=== PATIENT | male | born 1970 | race Hispanic/Latino ===

== ENCOUNTER 2018-02-09 09:25 | Day surgery (SDC) | payer BC ==
[2018-02-08 16:19] LABS: Absolute Lymphocytes (CBC) 1.6 K/uL (0.7-4.9); Absolute Monocytes 0.8 K/uL (0.1-1.3); Absolute Neutrophil 10.6 K/uL (1.8-8.0); Basophils % 0.5 % (0-1.3); Eosinophils % 0.8 % (0-4.4); Hematocrit 41.6 % (39.6-49.0); Lymphocytes % 12.4 % (15.3-44.8); MCH 28.6 pg (27.0-35.0); MCV 84.5 fL (80-100); MPV 9.2 fL (7.6-11.3); Monocytes % 6.1 % (3.3-12.3); RBC Red Blood Cell Count 4.92 M/uL (4.33-5.43)
[2018-02-08 16:24] LABS: Potassium 4.2 mEq/L (3.6-5.0)
--- NOTE | 2018-02-08 16:43 | RAD REPORT ---
EXAM DESCRIPTION: RAD - Chest Pa And Lat (2 Views) - 02/08/2018 3:58 pm CLINICAL HISTORY: Soft tissue mass. COMPARISON: None. FINDINGS: The lungs are clear. The heart is normal in size. No displaced fractures. Mildly tortuous thoracic aorta. IMPRESSION: No acute or concerning finding suspected.
--- NOTE | 2018-02-09 06:57 | EKG ---
Test Date: 2018-02-08 Test Time: 15:50:44 Developer Support Engineer: ZAFAR MEASUREMENT RESULTS: Intervals: Rate: 90 AK: 164 QRSD: 102 QT: 326 QTc: 398 [place]: P: 46 AK: 164 QRS: -13 T: 15 INTERPRETIVE STATEMENTS: Normal sinus rhythm Normal ECG No previous ECG available for comparison Electronically Signed On 02-09-18 06:55:19 CDT by Jeremy Sanon
[2018-02-09] MEDS ORDERED: Ringers Lactate 1,000 ML IV ONE (09:38)
[2018-02-09] MEDS ORDERED: CEFAZOLIN/SWI 1gm 1 GM/10 ML SYR ONE (09:39)
[2018-02-09] MEDS ORDERED: PROPOFOL 200 MG/20 ML VIAL IV ONE ×2 (10:17→10:37)
[2018-02-09] MEDS ORDERED: MIDAZOLAM HCL 2 MG/2 ML INJ ONE ×2 (10:18→10:37)
[2018-02-09] MEDS ORDERED: ONDANSETRON HCL 40 MG/20 ML VIAL ONE ×2 (10:18→11:38)
[2018-02-09] MEDS ORDERED: FENTANYL CITR 250 MCG/5 ML ONE (10:18)
[2018-02-09] MEDS ORDERED: FENTANYL CITR 100 MCG/2 ML ONE (10:37)
[2018-02-09] MEDS ORDERED: KETOROLAC 30 MG/ML INJ ONE (11:36)
[2018-02-09] MEDS ORDERED: HYDROCODONE/APAP 7.5/325 MG TAB ONE (12:56)
[2018-02-09] MEDS ORDERED: HYDROCODONE/APAP 7.5/325 MG TAB PO ONE (12:58)
[2018-02-09 13:27] VITALS: BP 121/70; TEMP 98.2; O2SAT 98
--- NOTE | 2018-02-10 00:07 | OP ---
Date of Procedure: 02/09/2018 Surgeon: Sascha Smith MD Preoperative Diagnosis: Infected sebaceous cyst in back. Postoperative Diagnosis: Infected sebaceous cyst in back. Procedure: Wide excision of infected sebaceous cyst in back, mass 10 cm x 6 cm. Estimated Blood Loss: Minimal. Specimen: Pus and cyst contents. Findings: Above. Anesthesia: General. Complications: None. Disposition: The patient tolerated the procedure in stable condition and was taken to the Recovery i n good general condition. Procedure In Detail: The patient was brought to the OR and placed in supine position. General anest hesia was begun. The patient was placed in left lateral position, prepped and draped in usual steril e fashion, Marcaine 0 5% was infiltrated locally. A 15-blade was used to make approximately 10 cm x 6 cm incision. Entire cyst contents excised and sent to Pathology after cultures were done on the pu s and cyst, wound irrigated, bleeding controlled with cautery. This was a very large and deep wound. I was unable to close the wound and pus, there was infection present. Therefore, the plan is to tr eat the patient with wet-to-dry normal saline dressing changes daily. He will follow up with me in [facility] and we will order wound VAC for the patient which will allow better secondary healing, so sterile dressing was applied. The patient was awakened and taken to Recovery in good ge neral condition. Discharge Note: The patient will go to Day Surgery and home when stable. Disposition: Home. Condition: Stable. Discharge Instructions: Resume home medications and diet. Activity as tolerated. No heavy lifting. Wet-to-dry normal saline dressing changes daily. Cipro 500 mg p.o. q.12. The patient already has pain medicine which is [place] 7.5-325 1 p.o. q.4 p.r.n. pain. Follow up in the [facility] n ext Monday. /MODL Voice ID: [id number] Report ID: [id number]
== END 2018-02-09 13:20 | disposition home or self-care (01) ==
LOC: OR 09:25 → EDBD 10:30 → OR 13:20
PROVIDERS: ATTEND Surgery
PROC: 0JB70ZZ Excision of Back Subcutaneous Tissue and Fascia, Open Approach (ICD-10-PCS; principal; 2018-02-09 10:30)
DX: L72.3 Sebaceous cyst (principal); I10 Essential (primary) hypertension; K21.9 Gastro-esophageal reflux disease without esophagitis; E66.9 Obesity, unspecified; G47.33 Obstructive sleep apnea (adult) (pediatric); Z83.3 Family history of diabetes mellitus; Z82.49 Family history of ischemic heart disease and other diseases of the circulatory system
CPT/HCPCS: 36415; 71046; 80048; 85025; 87070; 87075; 87077; 87186; 87205; 88304; 88305; 93005; J0690; J2250; J2405; J3010

== ENCOUNTER 2022-08-29 11:33 | Emergency (ER) | payer OTHER ==
[2022-08-29 12:44] LABS: Absolute Lymphocytes (CBC) 0.6 K/uL (0.7-4.9); Hematocrit 40.8 % (39.6-49.0); Lymphocytes % 4.8 % (15.3-44.8); MCV 83.5 fL (80-100); MPV 8.1 fL (7.6-11.3); RBC Red Blood Cell Count 4.89 M/uL (4.33-5.43)
[2022-08-29 13:06] LABS: Albumin 3.4 g/dL (3.4-5.0); Bilirubin Total 1.3 mg/dL (0.2-1.0); Protein, Total 8.7 g/dL (6.4-8.2)
[2022-08-29] MEDS ORDERED: MORPHINE 4 MG/ML SYR ONE (13:07)
[2022-08-29] MEDS ORDERED: NA CHLORIDE 0.9% 1,000 ML ONE (13:07)
[2022-08-29 13:47] LABS: Urine Blood Negative (Negative); Urine Glucose Trace (Negative); Urine Protein 2+ (Negative)
[2022-08-29 13:59] LABS: Urine Bacteria <20 /HPF (<20); Urine Mucus 2+ /HPF (None Seen); Urine RBC <5 /HPF (None Seen)
--- NOTE | 2022-08-29 14:03 | RAD REPORT ---
EXAM DESCRIPTION: CTAbdomen Pelvis W Contrast - 08/29/2022 1:49 pm CLINICAL HISTORY: Lower abdominal pain COMPARISON: No comparisons TECHNIQUE: CT of the abdomen and pelvis was performed with IV contrast. All CT scans are performed using dose optimization technique as appropriate and may include automated exposure control or mA/KV adjustment according to patient size. FINDINGS: Lower chest: No acute abnormality. Liver: Intrahepatic biliary ductal dilatation. Peripherally oriented 8 mm low-density lesion in the r ight hepatic lobe. Possible vague lesion in the right hepatic lobe measuring 2.5 cm as noted on image 29, series 501. Biliary: Extrahepatic biliary ductal dilatation. Stomach: No significant focal abnormality. Duodenum: Duodenal diverticulum. Pancreas: Ill-defined lesion suspected in the head of the pancreas with obstruction of the common dhaval e duct. It could measurement difficult to obtain based on the similar attenuation of the lesion on th e arterial and portal venous phase. Spleen: No significant abnormality. Adrenal: No suspicious lesions. Kidney/ureter: No hydronephrosis. No renal calculi. Retroperitoneum: No retroperitoneal adenopathy. Vascular: No aneurysm. Bowel: No significant focal abnormality. Normal appendix. Peritoneum: No ascites or free air. Bladder: Circumferential bladder wall thickening. Reproductive: No adnexal masses. Bones: No acute fracture. Other: n/a IMPRESSION: Poorly defined mass at the pancreatic head with obstruction of the common bile duct conc erning for adenocarcinoma. ERCP/EUS could further evaluate. In addition, MRI could better assess the indeterminate liver lesions and pancreas mass.
[2022-08-29 14:44] LABS: SARS-COV-2 RT PCR NEGATIVE (NEGATIVE)
--- NOTE | 2022-08-29 15:04 | EDPHYS ---
Physician Documentation [facility] Name: Mark Graham Age: 52 yrs Sex: Male : 1970 Arrival Date: 08/29/2022 Time: 11:36 Bed 10 Private MD: ED Physician Abdullahi Badillo HPI: 08/29 12:41 This 52 yrs old Male presents to ER via Ambulatory with complaints of ms3 Abdominal Pain, Vomiting, Fever. 12:41 The patient presents with abdominal pain in the lower abdomen. Onset: The ms3 symptoms/episode began/occurred 4 week(s) ago. The symptoms do not radiate. Associated signs and symptoms: Pertinent positives: fever, nausea, Pertinent negatives: diarrhea, dysuria. The symptoms are described as crampy. Modifying factors: The symptoms are alleviated by nothing, the symptoms are aggravated by nothing. Severity of pain: At its worst the pain was severe in the emergency department the pain is actually worse is a 8 / 10. Historical: - Allergies: 12:23 No Known Allergies; ap3 - Home Meds: 12:23 pantoprazole oral [Active]; irbesartan-hydrochlorothiazide 300-12.5 mg oral tab ap3 [Active]; - PMHx: 12:23 Gastroesophageal reflux disease; Hypertensive disorder; ap3 - Immunization history:: Client reports receiving the 2nd dose of the Covid vaccine. - Social history:: Smoking status: Patient denies any tobacco usage or history of. ROS: 12:41 Constitutional: Negative for fever, and chills. Neck: Negative for injury, pain, and ms3 swelling, Cardiovascular: Negative for chest pain, and palpitations. Respiratory: Negative for shortness of breath, cough, wheezing, and pleuritic chest pain. 12:41 MS/Extremity: Negative for injury and deformity, Skin: Negative for injury, rash, and discoloration. 12:41 Abdomen/GI: Positive for abdominal pain, nausea, Negative for diarrhea. 12:41 All other systems are negative. Exam: 12:41 Constitutional: This is a well developed, well nourished patient who is awake, alert, ms3 and in no acute distress. Head/Face: Normocephalic, atraumatic. Neck: Trachea midline, no cervical lymphadenopathy. Supple, full range of motion without nuchal rigidity, or vertebral point tenderness. No Meningismus. Chest/axilla: Normal chest wall appearance and motion. Nontender with no deformity. Cardiovascular: Regular rate and rhythm with a normal S1 and S2. No gallops, murmurs, or rubs. Normal PMI, no JVD. No pulse deficits. Respiratory: Lungs have equal breath sounds bilaterally, clear to auscultation and percussion. No rales, rhonchi or wheezes noted. No increased work of breathing, no retractions or nasal flaring. 12:41 Skin: Warm, dry with normal turgor. Normal color with no rashes, no lesions, and no evidence of cellulitis. MS/ Extremity: Pulses equal, no cyanosis. Neurovascular intact. Full, normal range of motion. 12:41 Abdomen/GI: Inspection: abdomen appears normal, Bowel sounds: normal, Palpation: mild abdominal tenderness, in the right lower quadrant and left lower quadrant. Vital Signs: 12:19 BP 134 / 103; Pulse 127; Resp 17; Temp 100.1(O); Pulse Ox 99% ; Weight 104.33 kg; ap3 Height 5 ft. 7 in. (170.18 cm); 13:20 BP 114 / 83; Pulse 92; Resp 20; Pulse Ox 99% on R/A; em6 14:20 BP 123 / 84; Pulse 94; Resp 20; Pulse Ox 99% on R/A; em6 15:07 BP 120 / 83; Pulse 88; Resp 20; Pulse Ox 99% on R/A; em6 16:00 BP 126 / 82; Pulse 80; Resp 18; Pulse Ox 99% ; em6 17:29 BP 138 / 84; Pulse 86; Resp 18; Pulse Ox 99% on R/A; em6 12:19 Body Mass Index 36.02 (104.33 kg, 170.18 cm) ap3 MDM: 12:26 Patient medically screened. ms3 12:41 Differential diagnosis: appendicitis, bowel obstruction, diverticulitis. ms3 15:03 Data reviewed: vital signs, nurses notes, lab test result(s), radiologic studies, and ms3 as a result, I will Transfer. Counseling: I had a detailed discussion with the patient and/or guardian regarding: the historical points, exam findings, and any diagnostic results supporting the discharge/admit diagnosis, lab results, radiology results, the need to transfer to another facility. ED course: Discussed CT findings and labs with patient and his . Discussed necessity for transfer and they understand and agree with plan. All questions were answered. Patient remains in stable condition in the emergency department.. 08/29 12:26 Order name: CBC with Diff; Complete Time: 14:52 ms3 08/29 12:26 Order name: CMP; Complete Time: 14:52 ms3 08/29 12:26 Order name: Lipase; Complete Time: 14:52 ms3 08/29 12:26 Order name: Urine Microscopic Only; Complete Time: 14:52 ms3 08/29 12:36 Order name: COVID-19/FLU A+B; Complete Time: 14:52 ms3 08/29 13:47 Order name: Urine Dipstick-Ancillary; Complete Time: 14:52 EDMS 08/29 12:26 Order name: CT Abd/Pelvis - IV Contrast Only; Complete Time: 14:52 ms3 08/29 12:26 Order name: IV Saline Lock; Complete Time: 12:32 ms3 08/29 12:26 Order name: Labs collected and sent; Complete Time: 12:38 ms3 08/29 12:26 Order name: Urine Dipstick-Ancillary (obtain specimen); Complete Time: 13:27 ms3 Administered Medications: 13:13 Drug: NS 0.9% 1000 ml Route: IV; Rate: 1 bolus; Site: right antecubital; iw 15:08 Follow up: Response: No adverse reaction; IV Status: Completed infusion; IV Intake: em6 1000ml 13:13 Drug: morphine 4 mg Route: IVP; Infused Over: 4 mins; Site: right antecubital; iw 14:10 Follow up: Response: No adverse reaction; RASS: Alert and Calm (0) em6 17:27 Drug: Dilaudid (HYDROmorphone) 0.5 mg Route: IVP; Site: right antecubital; em6 17:51 Follow up: Response: No adverse reaction; RASS: Alert and Calm (0) em6 Disposition Summary: 08/29/22 15:03 Transfer Ordered Transfer Location: [facility] ms3 Reason: Higher level of care ms3 Condition: Stable ms3 Problem: new ms3 Symptoms: are unchanged ms3 Accepting Physician: (08/29/22 17:51) em6 Diagnosis - Pancreatic mass ms3 - Upper abdominal pain, unspecified ms3 - Transaminitis ms3 Forms: - Medication Reconciliation Form ms3 - SBAR form ms3 Signatures: Dispatcher [employer] Shania Sanchez RN RN iw Prokisch, Amanda, RN RN ap3 Abdullahi Badillo DO DO ms3 Beatriz Cox RN RN em6 Corrections: (The following items were deleted from the chart) 15:04 15:03 ms3 ms3 17:51 15:04 ms3 em6
--- NOTE | 2022-08-29 15:04 | ER ---
Nurse's Notes [facility] Name: Mark Graham Age: 52 yrs Sex: Male : 1970 Arrival Date: 08/29/2022 Time: 11:36 Bed 10 Private MD: Diagnosis: Pancreatic mass;Upper abdominal pain, unspecified;Transaminitis Presentation: 08/29 12:19 Chief complaint: Patient states: his abdominal pain has been going on for approx 4 ap3 weeks. patient states she has been nauseous, and has vomited once. Coronavirus screen: At this time, the client does not indicate any symptoms associated with coronavirus-19. Ebola Screen: No symptoms or risks identified at this time. Initial Sepsis Screen: Does the patient meet any 2 criteria? HR > 90 bpm. Does the patient have a suspected source of infection? No. Patient's initial sepsis screen is negative. Risk Assessment: Do you want to hurt yourself or someone else? Patient reports no desire to harm self or others. Onset of symptoms was August 01, 2022. 12:19 Method Of Arrival: Ambulatory ap3 12:19 Acuity: JAZLYN 3 ap3 Historical: - Allergies: 12:23 No Known Allergies; ap3 - Home Meds: 12:23 pantoprazole oral [Active]; irbesartan-hydrochlorothiazide 300-12.5 mg oral tab ap3 [Active]; - PMHx: 12:23 Gastroesophageal reflux disease; Hypertensive disorder; ap3 - Immunization history:: Client reports receiving the 2nd dose of the Covid vaccine. - Social history:: Smoking status: Patient denies any tobacco usage or history of. Screenin:25 Abuse screen: Denies threats or abuse. Nutritional screening: No deficits noted. ap3 Tuberculosis screening: No symptoms or risk factors identified. 13:20 Fall Risk Total Carrera Fall Scale indicates No Risk (0-24 pts). em6 Assessment: 13:20 General: Appears in no apparent distress. comfortable, Behavior is calm, cooperative, ld1 appropriate for age. Pain: Complains of pain in left lower quadrant and right lower quadrant Pain does not radiate. Pain currently is 8 out of 10 on a pain scale. Quality of pain is described as throbbing, Pain began suddenly, Is continuous. 13:20 GI: Abdomen is non-distended, Bowel sounds present X 4 quads. Abd is soft and non em6 tender X 4 quads. 14:20 Reassessment: No changes from previously documented assessment. Patient and/or family em6 updated on plan of care and expected duration. Pain level reassessed. Patient is alert, oriented x 3, equal unlabored respirations, skin warm/dry/pink. 15:20 Reassessment: No changes from previously documented assessment. Patient and/or family em6 updated on plan of care and expected duration. Pain level reassessed. Patient is alert, oriented x 3, equal unlabored respirations, skin warm/dry/pink. 16:20 Reassessment: No changes from previously documented assessment. Patient and/or family em6 updated on plan of care and expected duration. Pain level reassessed. Patient is alert, oriented x 3, equal unlabored respirations, skin warm/dry/pink. 17:03 Reassessment: gave nurse to nurse report to eleanor VALLES accepting nurse. updated patient em6 of the plan of care. 17:20 Reassessment: patient is stating abdominal pain. provider notified. new order given. em6 Pain: Complains of pain in left lower quadrant and right lower quadrant Pain does not radiate. Pain currently is 10 out of 10 on a pain scale. Neuro: Level of Consciousness is awake, alert, obeys commands, Oriented to person, place, time, situation. Respiratory: Airway is patent Respiratory effort is even, unlabored, Respiratory pattern is regular, symmetrical. Vital Signs: 12:19 BP 134 / 103; Pulse 127; Resp 17; Temp 100.1(O); Pulse Ox 99% ; Weight 104.33 kg; ap3 Height 5 ft. 7 in. (170.18 cm); 13:20 BP 114 / 83; Pulse 92; Resp 20; Pulse Ox 99% on R/A; em6 14:20 BP 123 / 84; Pulse 94; Resp 20; Pulse Ox 99% on R/A; em6 15:07 BP 120 / 83; Pulse 88; Resp 20; Pulse Ox 99% on R/A; em6 16:00 BP 126 / 82; Pulse 80; Resp 18; Pulse Ox 99% ; em6 17:29 BP 138 / 84; Pulse 86; Resp 18; Pulse Ox 99% on R/A; em6 12:19 Body Mass Index 36.02 (104.33 kg, 170.18 cm) ap3 ED Course: 11:36 Patient arrived in ED. mr 11:53 Abdullahi Badillo DO is Attending Physician. ms3 12:23 Triage completed. ap3 12:25 Arm band placed on right wrist. ap3 12:45 Inserted saline lock: 20 gauge in right antecubital area, using aseptic technique. em6 Blood collected. by harpal. 13:10 Beatriz Cox, RN is Primary Nurse. em6 13:20 Bed in low position. Call light in reach. Side rails up X 1. seismic plotter on. Pulse em6 ox on. NIBP on. Warm blanket given. 13:32 COVID-19/FLU A+B Sent. em6 13:50 CT Abd/Pelvis - IV Contrast Only In Process Unspecified. EDMS 15:04 initiated transfer to [facility]. bd 17:50 No provider procedures requiring assistance completed. Patient transferred, IV remains em6 in place. Administered Medications: 13:13 Drug: NS 0.9% 1000 ml Route: IV; Rate: 1 bolus; Site: right antecubital; iw 15:08 Follow up: Response: No adverse reaction; IV Status: Completed infusion; IV Intake: em6 1000ml 13:13 Drug: morphine 4 mg Route: IVP; Infused Over: 4 mins; Site: right antecubital; iw 14:10 Follow up: Response: No adverse reaction; RASS: Alert and Calm (0) em6 17:27 Drug: Dilaudid (HYDROmorphone) 0.5 mg Route: IVP; Site: right antecubital; em6 17:51 Follow up: Response: No adverse reaction; RASS: Alert and Calm (0) em6 Medication: 12:25 VIS not applicable for this client. ap3 Intake: 15:08 IV: 1000ml; Total: 1000ml. em6 Outcome: 15:03 ER care complete, transfer ordered by . ms3 17:51 Transferred by ground EMS to [facility]. em6 17:51 Condition: stable 17:51 Instructed on the need for transfer, Demonstrated understanding of instructions. 17:51 Patient left the ED. em6 Signatures: Dispatcher [employer] EDMS Yaa Ernst Mary mr Williams, Irene, RN RN iw Maddy Wheeler RN RN ap3 Abdullahi Badillo, DO ms3 Mary Landeros RN RN ld1 Beatriz Cox RN RN em6 Corrections: (The following items were deleted from the chart) 15:09 13:20 Pain: Complains of pain in left lower quadrant and right lower quadrant Pain does em6 not radiate. Pain currently is 8 out of 10 on a pain scale. Quality of pain is described as throbbing, Pain began suddenly, Is continuous, ld1 17:04 17:03 Reassessment: gave nurse to nurse report to eleanor VALLES accepting nurse em6 em6
[2022-08-29] MEDS ORDERED: HYDROMORPHONE HCL 0.5 MG/0.5 ML INJ ONE (17:25)
[2022-08-29 18:01] VITALS: TEMP 100.1; O2SAT 99
[2022-08-29 18:20] VITALS: BP 138/84
== END 2022-08-29 17:51 | disposition short-term general hospital (02) ==
LOC: ER 11:33
DX: K86.89 Other specified diseases of pancreas (principal); R74.01 Elevation of levels of liver transaminase levels; K21.9 Gastro-esophageal reflux disease without esophagitis; I10 Essential (primary) hypertension; Z20.822 Contact with and (suspected) exposure to COVID-19
CPT/HCPCS: 85025; 36415; 83690; 80053; 0240U; 74177; Q9967; J1170; J7030; 81003; 81015; 96361; 96374; 96375; 99285

== ENCOUNTER 2023-07-12 06:12 | Emergency (ER) | payer OTHER, SELFPAY ==
--- OUTSIDE RECORDS SUMMARY | 2023-07-12 06:17 | XMS REPORT | Clinical Summary ---
:1970 Author Organization [facility] MD [facility] Center Address [address] [place] [address] Care Team Providers Name Role Phone Akila Ko Primary Care Provider Neha Paiz Unavailable Pavel Holman MD Primary Care Provider Loi Coon MD Unavailable Carlton Wooten MD Unavailable Allergies No known active allergies Medications Medication Sig Dispensed Refills Start End Status Date Date HYDROcodone-acetamin as needed. 0 Active ophen (NORCO) 5 2 mg-325 mg per tablet polyethylene glycol as needed. 0 Active (GLYCOLAX) 17 2 gram/dose powder omeprazole Take 1 capsule 0 Acti ve (PriLOSEC) 20 mg (20 mg) by capsule mouth every morning before breakfast. senna (SENOKOT) 8.6 Take 1 tablet 0 Active mg tablet by mouth as needed. metFORMIN Take by mouth 0 Active (GLUCOPHAGE) 500 mg daily with tablet breakfast. gabapentin Take 1 capsule 0 Acti ve (NEURONTIN) 300 mg (300 mg) by capsule mouth at bedtime. DULoxetine Take 1 capsule 0 Acti ve (CYMBALTA) 30 mg (30 mg) by capsule mouth daily. pancrelipase (CREON) Take 4 0 Active 6,000-19,000-30,000 capsules units capsule (24,000 Units) by mouth 3 (three) times a day with meals. cholecalciferol, 50 mcg. 0 Act roscoe vitamin D3, (VITAMIN 3 D3) 2,000 units tab tablet methadone Take 1 tablet 0 Active (DOLOPHINE) 5 mg (5 mg) by tablet mouth every 12 (twelve) hours. oxyCODONE (OXY-IR) 5 Take 1 capsule 0 Active mg capsule (5 mg) by mouth every 4 (four) hours as needed for moderate pain. simethicone Chew 1 tablet 0 Acti ve (MYLICON) 80 mg (80 mg) every chewable tablet 8 (eight) hours as needed for flatulence. irbesartan (AVAPRO) Take 1 tablet 0 Active 300 mg tablet (300 mg) by 3 mouth daily. INV-() Take 4 184 capsule 0 Ac tive [id number] 100 mg capsules (400 3 023 capsuleIndications: mg) by mouth Malignant neoplasm twice daily of body of pancreas for 21 days. Take with 8 oz of water on empty stomach (no food 2 hours before and 1 hour after dose). prochlorperazine Take 1 tablet 30 tablet 3 Active (Compazine) 10 mg (10 mg) by 3 tabletIndications: mouth every 6 Malignant neoplasm (six) hours as of body of pancreas needed for nausea or vomiting. ondansetron (Zofran) Take 1 tablet 30 tablet 3 Active 4 mg (4 mg) by 3 tabletIndications: mouth every 6 Malignant neoplasm (six) hours as of body of pancreas needed for nausea or vomiting (if not responsive to prochlorperazi ne). irbesartan-hydrochlo Take 1 tablet 0 07/05 Discontinued rothiazide (AVALIDE) by mouth 023 (Therapy 300-12.5 mg per daily. 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 Malignant neoplasm of body of pancreas 07/05/2023 Encounters Date Type Department Care Team Description 07/10/2023 Education Interventional Wilma, Radiology Francie Acosta MA [address] [facility], [address] [place] [address] 07/06/2023 Hospital Encounter Clinical and [place] Adenoca rcinoma, NOS of pancreas, NOS 9:15 AM CDT Jaylin Santiago APRN Dis charge Disposition: Home Center [address] Main Bldg, 2nd [place] [address] 07/06/2023 Hospital Encounter Clinical and [place]Arturo Maligna nt neoplasm of body of pancreas (Primary Dx) 9:15 AM CDT Jaylin Santiago APRN Discharge Disposition: Home Center Haley Licona [address] Billy Proctor RN Main Bldg, 2nd [place] [address] 07/06/2023 Hospital Encounter Diagnostic Laboratory Artemio, Charlie, Malignant neoplasm of body of pancreas 8:15 AM CDT Center Discharge Disposition: Home - [address] 07/06/2023 Main Bldg, Elevator A 9:14 [place] [address] 07/06/2023 Orders Only Clinical Center for Jen Gallego Targeted Therapy S [address] Main Bldg, [address] [place] [address] 07/06/2023 Travel 07/05/2023 Follow-Up Clinical Center for Antoinette Ulloag, Malignan t neoplasm of body of pancreas (Primary Dx); 11:30 AM Targeted Therapy Adenocarcinoma, NOS of pancr eas, NOS CDT [address] Main Bldg, [address] [place] [address] 07/05/2023 Orders Only Clinical Center for [place]Arturo Malign ant Targeted Therapy Jaylin APRN neoplasm of body [address] of pancreas Main Bldg, [address]th [address] (Primary Dx) Elevator C [place], [place] [id number] 07/05/2023 Orders Only Clinical Center for Artemio, Charlie, Malignan t Targeted Therapy neoplasm of body [address] of pancreas Main Bldg, 11th Fl[address] (Primary Dx) [place] [address] 07/05/2023 Travel 07/05/2023 Orders Only Clinical Center for Arnie Bella Targeted Therapy H III, PharmD [address] Main Bldg, [address]th [place] [address] 07/04/[address] Imaging [place] Adenocarcinoma, 6:35 PM CDT [address] Jaylin APRN NOS of pancreas, [facility], [address] [place] [place] [address] 07/04/2023 Hospital Encounter Cardiopulmonary Cent er [place]Arturo Adenocarcinoma, NOS of pancr eas, NOS 10:[address] Jaylin, COMMUNITY COORDINATOR Discharge Disposition: Home CDT - Main Bldg, 6th Floor 07/04/2023 Elevator C 11:59 [place] [address] CDT [phone] 07/04/2023 Hospital Encounter [facility] - [place]-Ad dorothy Adenocarcinoma, NOS of pancreas, NOS 8:00 AM CDT Cardiology , Jaylin, COMMUNITY COORDINATOR Discharge Disposition: Home - [address] 07/04/2023 Main Bldg, 2nd Floor 10:47 [place] [address] 07/04/2023 Hospital Encounter Clinical and [place]Arturo Adenoca rcinoma, NOS of pancreas, NOS 7:00 AM CDT Translational Research Jaylin, COMMUNITY COORDINATOR Discharge Disposition: Home Center [facility], [address] Alexi Chao RN Main Bldg, 1st [place] [address] 07/04/2023 Hospital Encounter Clinical and [place]Arturo Adenoca rcinoma, NOS of pancreas, NOS 7:00 AM CDT Translational Research Jaylin, COMMUNITY COORDINATOR Dis charge Disposition: Home Center [address] Main Bldg, 1st [place] [address] 07/04/2023 Orders Only Clinical Center for Eliz Camejo, Targeted Therapy RP [address] Main Bldg, [address] [place] [address] 07/04/2023 Orders Only Clinical Center for Arnie Bella Targeted Therapy H III, PharmD [address] Main Bldg, [address]th [place] [address] 07/04/2023 Travel 07/03/2023 Orders Only Clinical Center for Gallego, Jen Adenoca rcinoma, Targeted Therapy S NOS of pancreas, [address] NOS (Primary Dx) Main Bldg, [address]th [place] [address] 06/30/2023 Orders Only Main Interventional Leila, Radiology HOLLY Pritchett [address] Pavilion Bldg, 3rd [place] [address] 06/28/2023 Orders Only Clinical Center for Julián Jen Adenoca rcinoma, Targeted Therapy S NOS of pancreas, [address] NOS (Primary Dx) Main Bldg, [address]th [place] [address] 06/20/2023 Documentation Clinical Center for Gallego, Jen Targeted Therapy S [address] Main Bldg, [address]th [place] [address] 06/12/2023 Ancillary Procedure Image Library Pavel Holman, Cancer 10:40 PM [address] [place] [address] 06/12/2023 Ancillary Procedure Image Library Pavel Holman, Cancer 10:35 PM [address] [place] [address] 06/12/2023 Ancillary Procedure Image Library Pavel Holman, Cancer 10:30 PM [address] [place] [address] 06/12/2023 Ancillary Procedure Image Library Pavel Holman, Cancer 10:25 PM [address] [place] [address] 06/12/2023 Ancillary Procedure Image Library Pavel Holman, Cancer 10:20 PM [address] [place] [address] 06/08/2023 Orders Only Pain Management [facility] er Kera, Chronic pain [address] [facility] MD Tommie (Primary Dx) Main Bldg, 4th [place] [address] 06/07/2023 Telemedicine Clinical Center for Miri Shepherd, Adenoca rcinoma, 2:20 PM CDT Targeted Therapy MD Loi NOS of pancreas, [address] [facility] NOS Main Bldg, 11th [place] [address] 05/31/2023 Hospital Encounter Pain Management Cent er Carlton Wooten, Cancer associated pain (Prim eitan Dx); 1:24 PM CDT [address] Adenocarcinoma, NOS of pancr eas, NOS; - Main Bldg, 4th Floor Abdominal pain, epigastric; 05/31/2023 Elevator A residential current use of opi ate analgesic 11:59 [place] [address] Discharge Disposition: Home CDT [phone] 05/31/2023 Follow-Up Gastrointestinal [facility] ter Pavel Holman, Adenocarcinoma, 1:00 PM CDT [address] MD NOS of pancreas, Main Bldg, 7th [place] [address] 05/31/2023 Travel 05/30/2023 Hospital Encounter Diagnostic Laboratory Pavel Holman , Adenocarcinoma, NOS of pancreas, NOS 11:48 AM [place] Discharge Disposition: Home CDT - [address] 05/30/2023 Main Bldg, Elevator A 11:59 PM [place] [id number] CDT 05/29/2023 Lab Requisition [facility] Jamaal Bauman MD Disposition: Home Radha Zambrano MD 05/24/2023 Ancillary Procedure Image Library Pavel Holman, Cancer 8:00 PM CDT [address] [place] [address] 05/24/2023 Orders Only [address] Ko, Akila, Adenocarcinoma, [address] [place] NOS of pancreas, Main Bldg, 7th Floor NOS (Primary Dx) [place] [address] 05/23/2023 Follow-Up Gastrointestinal [facility] ter Ko, Akila, Adenocarcinoma, 1:00 PM CDT [address] [place] NOS of pancreas, Main Bldg, 7th Floor Pavel Holman, [place] [address] 05/23/2023 Travel 05/18/2023 Ancillary Procedure MD Jaswinder Acosta ity Ko, Akila, Adenocarcinoma, 6:35 AM CDT [address] [facility] [place] NOS of pancreas, 2nd [place] [address] 05/18/2023 Travel 05/17/2023 Hospital Encounter Diagnostic Laboratory Ko, Akila, Adenocarcinoma, NOS of pancreas, NOS 2:00 PM CDT Center [place] Discharge Disposition: Home - [address] 05/17/2023 Main Bldg, Elevator A 11:59 [place] [address] CDT 05/17/[address]23 [address] Ko, Akila, Adenocarcinoma, 1:30 PM CDT [address] [place] NOS of pancreas, Main Bldg, 7th Floor NOS (Primary Dx) [place] [address] 05/17/2023 Travel 05/15/2023 NPR MDA PATIENT ACCESS 2:00 PM CDT 05/15/2023 Travel 05/15/2023 Orders Only [address] Ko, Akila, Adenocarcinoma, [address] [place] NOS of pancreas, Main Bldg, 7th Floor NOS (Primary Dx) [place] [address] 05/08/2023 Travel after 07/12/2022 Surgical History Surgery Date Site/Laterality Comments LIPOMA RESECTION on back Medical History Medical History Date Comments Hypertension 2008 Gastric reflux 2007 Pancreatic cancer 08/29/2022 Family History Medical History Relation Name Comments Brain cancer Father Mark Graham Sr. Pancreatic cancer Maternal Aunt Patito Calderón Relation Name Status Comments Father Mark Graham Sr. Maternal Aunt Patito Calderón Social History Tobacco Use Types Packs/Day Years Used Date Smoking Tobacco: Former Cigarettes 1 15 09/1986 - 09/18/1998 Smokeless Tobacco: Former Snuff Qu it: 10/20/2019 Comments: Stop all on my own Alcohol Use Standard Drinks/Week Comments Not Currently 0 (1 standard drink = 0.6 oz pure alcoho l) 08-29-2022 have not drink Sex and Gender Information Value Date Recorded Sex Assigned at Not on file Gender Identity Not on file Sexual Orientation Not on file Job Start Date Occupation Industry Not on file Not on file Not on file Obstetrics History Last Filed Vital Signs Vital Sign Reading Time Taken Comments Blood Pressure 129/81 07/06/2023 5:00 PM CDT Pulse 100 07/06/2023 5:00 PM CDT Temperature 36.5 C (97.7 F) 07/06/2023 5:00 PM CDT Respiratory Rate 18 07/06/2023 5:00 PM CDT Oxygen Saturation 100% 07/06/2023 5:00 PM CDT Inhaled Oxygen Concentration - - Weight 70.7 kg (155 lb 13.8 oz) 07/06/2023 1:31 PM CDT Height 166.1 cm (5' 5.39") 07/05/2023 11:43 AM CDT Body Mass Index 25.63 07/05/2023 11:43 AM CDT Plan of Treatment Date Type Department Care Team Description 07/13/2023 6:30 Appointment Diagnostic Laboratory Antoinette Ulloa MD AM CDT Center [address] [place] [address] Main [facility], [place] [address] 07/13/2023 8:40 Follow-Up Clinical Center for Channing AM CDT Targeted Therapy JULIANE Mosqueda [address] Main Bldg, [address] [place] [address] [place] [address] [phone] 07/13/2023 10:00 Appointment Clinical and Translational Francy robins AM CDT Research Center Jaylin, COMMUNITY COORDINATOR [address] Main Bldg, 1st [place] [address] [place] [address] [phone] 07/13/2023 10:00 Appointment Clinical and Translational Francy robins AM CDT Research Center Jaylin, COMMUNITY COORDINATOR [address] Main Bldg, 1st [place] [address] [place] [address] [phone] 07/20/2023 9:30 Appointment Diagnostic Laboratory Antoinette Ulloa MD CDT Center [address] [place] [address] Main Bldg, [place] [address] 07/20/2023 11:40 Follow-Up Clinical Center for HEATH Snell T Targeted Therapy Jaylin, COMMUNITY COORDINATOR [address] Main Bldg, [address] [place] [address] [place] [address] [phone] 07/25/2023 10:15 Appointment Interventional Radio logy Pavel Holman MD TRAUMA NURSE [address] [facility], [address] [place] [address] [place] [address] [phone] 07/25/2023 11:00 Appointment Diagnostic Laboratory Odilia Dee AM TRAUMA NURSE [place], [place] [address] [place] [address] [place] [address] ( Work) 07/26/2023 11:00 Appointment Interventional Radio logy Channing, AM TRAUMA NURSE [address] Jaylin, [facility] [address] [address] or [address] [place] [address] [place] [address] [phone] 07/26/2023 1:30 Appointment Diagnostic Laboratory Channing, PM TRAUMA NURSE Center [facility], [facility] [address] Main Bldg, [place] [address] [place] [address] ( Work) 07/26/2023 4:00 Follow-Up Clinical Center for Miri Shepherd, PM TRAUMA NURSE Targeted Therapy MD Loi [address] Main Bldg, [address] [place] [address] [place] [address] [phone] 07/26/2023 5:30 Appointment Clinical and Translational Pavel Holman MD PM TRAUMA NURSE Research Center [address] [place] [address] Main Bldg, 1st [place] [address] Health Maintenance Due Date Last Done Comments COVID-19 Vaccination (#1) 1975 Procedures Procedure Name Priority Date/Time Associated Comments Diagnosis DIFFERENTIAL Routine 07/06/2023 11:27 Malignant neoplasm Resul ts for this AM CDT of body of procedure are i n pancreas the results section. SERUM CREATININE Routine 07/06/2023 11:27 Malignant neoplasm R esults for this AM CDT of body of procedure are i n pancreas the results section. .CBC Routine 07/06/2023 11:27 Malignant neoplasm Resul ts for this AM CDT of body of procedure are i n pancreas the results section. FRACTIONATED BILIRUBIN Routine 07/06/2023 11:27 Malignant neop lasm Results for this AM CDT of body of procedure are i n pancreas the results section. TOTAL PROTEIN Routine 07/06/2023 11:27 Malignant neoplasm Resu lts for this AM CDT of body of procedure are i n pancreas the results section. ASPARTATE Routine 07/06/2023 11:27 Malignant neoplasm Resul ts for this AMINOTRANSFERASE AM CDT of body of procedure a re in pancreas the results section. ALANINE AMINOTRANSFERASE Routine 07/06/2023 11:27 Malignant ne oplasm Results for this AM CDT of body of procedure are i n pancreas the results section. ALKALINE PHOSPHATASE Routine 07/06/2023 11:27 Malignant neopla sm Results for this AM CDT of body of procedure are i n pancreas the results section. ALBUMIN LEVEL Routine 07/06/2023 11:27 Malignant neoplasm Resu lts for this AM CDT of body of procedure are i n pancreas the results section. CALCIUM LEVEL Routine 07/06/2023 11:27 Malignant neoplasm Resu lts for this AM CDT of body of procedure are i n pancreas the results section. .GLOMERULAR FILTRATION Routine 07/06/2023 11:27 Malignant neop lasm Results for this RATE AM CDT of body of procedure are i n pancreas the results section. ELECTROLYTE PANEL Routine 07/06/2023 11:27 Malignant neoplasm Results for this AM CDT of body of procedure are i n pancreas the results section. BLOOD UREA NITROGEN Routine 07/06/2023 11:27 Malignant neoplas m Results for this AM CDT of body of procedure are i n pancreas the results section. GLUCOSE LEVEL Routine 07/06/2023 11:27 Malignant neoplasm Resu lts for this AM CDT of body of procedure are i n pancreas the results section. APTT Routine 07/06/2023 11:27 Malignant neoplasm Resul ts for this AM CDT of body of procedure are i n pancreas the results section. PROTHROMBIN TIME Routine 07/06/2023 11:27 Malignant neoplasm R esults for this AM CDT of body of procedure are i n pancreas the results section. LIPASE LEVEL Routine 07/06/2023 11:27 Malignant neoplasm Resul ts for this AM CDT of body of procedure are i n pancreas the results section. AMYLASE LEVEL Routine 07/06/2023 11:27 Malignant neoplasm Resu lts for this AM CDT of body of procedure are i n pancreas the results section. PHOSPHORUS LEVEL Routine 07/06/2023 11:27 Malignant neoplasm R esults for this AM CDT of body of procedure are i n pancreas the results section. MAGNESIUM LEVEL Routine 07/06/2023 11:27 Malignant neoplasm Re sults for this AM CDT of body of procedure are i n pancreas the results section. URIC ACID Routine 07/06/2023 11:27 Malignant neoplasm Resul ts for this AM CDT of body of procedure are i n pancreas the results section. LACTATE DEHYDROGENASE Routine 07/06/2023 11:27 Malignant neopl asm Results for this AM CDT of body of procedure are i n pancreas the results section. COMPLETE BLOOD COUNT W/ Routine 07/06/2023 11:27 Malignant rachel plasm DIFFERENTIAL AM CDT of body of pancreas COMPREHENSIVE METABOLIC Routine 07/06/2023 11:27 Malignant rachel plasm PANEL AM CDT of body of pancreas [facility] Routine 07/05/2023 4:07 Adenocarcinoma, Results for this PM CDT NOS of pancreas, procedure a re in NOS the results section. CT CHEST ABDOMEN PELVIS Routine 07/04/2023 7:33 Adenocarcinoma , Results for this W WO CONTRAST PM CDT NOS of pancreas, procedure are in NOS the results section. ECHOCARDIOGRAM 2D Routine 07/04/2023 2:54 Adenocarcinoma, Resu lts for this COMPLETE PM CDT NOS of pancreas, procedure a re in NOS the results section. URINALYSIS MICROSCOPIC Routine 07/04/2023 8:30 Re sults for this EXAM AM CDT procedure are i n the results section. DIFFERENTIAL Routine 07/04/2023 8:30 Adenocarcinoma, Results f or this AM CDT NOS of pancreas, procedure a re in NOS the results section. .CBC Routine 07/04/2023 8:30 Adenocarcinoma, Results f or this AM CDT NOS of pancreas, procedure a re in NOS the results section. FRACTIONATED BILIRUBIN Routine 07/04/2023 8:30 Adenocarcinoma, Results for this AM CDT NOS of pancreas, procedure a re in NOS the results section. TOTAL PROTEIN Routine 07/04/2023 8:30 Adenocarcinoma, Results for this AM CDT NOS of pancreas, procedure a re in NOS the results section. ASPARTATE Routine 07/04/2023 8:30 Adenocarcinoma, Results f or this AMINOTRANSFERASE AM CDT NOS of pancreas, procedu re are in NOS the results section. ALANINE AMINOTRANSFERASE Routine 07/04/2023 8:30 Adenocarcinom a, Results for this AM CDT NOS of pancreas, procedure a re in NOS the results section. ALKALINE PHOSPHATASE Routine 07/04/2023 8:30 Adenocarcinoma, R esults for this AM CDT NOS of pancreas, procedure a re in NOS the results section. ALBUMIN LEVEL Routine 07/04/2023 8:30 Adenocarcinoma, Results for this AM CDT NOS of pancreas, procedure a re in NOS the results section. .GLOMERULAR FILTRATION Routine 07/04/2023 8:30 Adenocarcinoma, Results for this RATE AM CDT NOS of pancreas, procedure a re in NOS the results section. SERUM CREATININE Routine 07/04/2023 8:30 Adenocarcinoma, Resul ts for this AM CDT NOS of pancreas, procedure a re in NOS the results section. ELECTROLYTE PANEL Routine 07/04/2023 8:30 Adenocarcinoma, Resu lts for this AM CDT NOS of pancreas, procedure a re in NOS the results section. BLOOD UREA NITROGEN Routine 07/04/2023 8:30 Adenocarcinoma, Re sults for this AM CDT NOS of pancreas, procedure a re in NOS the results section. GLUCOSE LEVEL Routine 07/04/2023 8:30 Adenocarcinoma, Results for this AM CDT NOS of pancreas, procedure a re in NOS the results section. LACTATE DEHYDROGENASE Routine 07/04/2023 8:30 Adenocarcinoma, Results for this AM CDT NOS of pancreas, procedure a re in NOS the results section. LIPASE LEVEL Routine 07/04/2023 8:30 Adenocarcinoma, Results f or this AM CDT NOS of pancreas, procedure a re in NOS the results section. MAGNESIUM LEVEL Routine 07/04/2023 8:30 Adenocarcinoma, Result s for this AM CDT NOS of pancreas, procedure a re in NOS the results section. PROTHROMBIN TIME Routine 07/04/2023 8:30 Adenocarcinoma, Resul ts for this AM CDT NOS of pancreas, procedure a re in NOS the results section. THYROID STIMULATING Routine 07/04/2023 8:30 Adenocarcinoma, Re sults for this HORMONE AM CDT NOS of pancreas, procedure a re in NOS the results section. URIC ACID Routine 07/04/2023 8:30 Adenocarcinoma, Results f or this AM CDT NOS of pancreas, procedure a re in NOS the results section. URINALYSIS WITH Routine 07/04/2023 8:30 Adenocarcinoma, Result s for this MICROSCOPIC IF INDICATED AM CDT NOS of pancreas, procedure are in NOS the results section. HIV 1/2 Routine 07/04/2023 8:30 Adenocarcinoma, Results f or this ANTIGEN/ANTIBODY, FOURTH AM CDT NOS of pancreas, procedure are in GEN W/RFL NOS the results section. HEPATITIS C VIRUS Routine 07/04/2023 8:30 Adenocarcinoma, Resu lts for this ANTIBODY AM CDT NOS of pancreas, procedure a re in NOS the results section. HEPATITIS B SURFACE Routine 07/04/2023 8:30 Adenocarcinoma, Re sults for this ANTIGEN AM CDT NOS of pancreas, procedure a re in NOS the results section. HBV DNA QUANT Routine 07/04/2023 8:30 Adenocarcinoma, Results for this AM CDT NOS of pancreas, procedure a re in NOS the results section. COMPREHENSIVE METABOLIC Routine 07/04/2023 8:30 Adenocarcinoma , PANEL AM CDT NOS of pancreas, NOS COMPLETE BLOOD COUNT W/ Routine 07/04/2023 8:30 Adenocarcinoma , DIFFERENTIAL AM CDT NOS of pancreas, NOS CALCIUM LEVEL Routine 07/04/2023 8:30 Adenocarcinoma, Results for this AM CDT NOS of pancreas, procedure a re in NOS the results section. APTT Routine 07/04/2023 8:30 Adenocarcinoma, Results f or this AM CDT NOS of pancreas, procedure a re in NOS the results section. AMYLASE LEVEL Routine 07/04/2023 8:30 Adenocarcinoma, Results for this AM CDT NOS of pancreas, procedure a re in NOS the results section. CARCINOEMBRYONIC ANTIGEN Routine 07/04/2023 8:30 Adenocarcinom a, Results for this AM CDT NOS of pancreas, procedure a re in NOS the results section. CARBOHYDRATE ANTIGEN Routine 07/04/2023 8:30 Adenocarcinoma, R esults for this 19-9 AM CDT NOS of pancreas, procedure a re in NOS the results section. EKG, 12-LEAD (SCHEDULED) Routine 07/04/2023 Adenocarcinoma, NOS of pancreas, NOS FRACTIONATED BILIRUBIN Routine 05/30/2023 11:52 Adenocarcinoma , Results for this AM CDT NOS of pancreas, procedure a re in NOS the results section. TOTAL PROTEIN Routine 05/30/2023 11:52 Adenocarcinoma, Results for this AM CDT NOS of pancreas, procedure a re in NOS the results section. ASPARTATE Routine 05/30/2023 11:52 Adenocarcinoma, Results for this AMINOTRANSFERASE AM CDT NOS of pancreas, procedu re are in NOS the results section. ALANINE AMINOTRANSFERASE Routine 05/30/2023 11:52 Adenocarcino ma, Results for this AM CDT NOS of pancreas, procedure a re in NOS the results section. ALKALINE PHOSPHATASE Routine 05/30/2023 11:52 Adenocarcinoma, Results for this AM CDT NOS of pancreas, procedure a re in NOS the results section. ALBUMIN LEVEL Routine 05/30/2023 11:52 Adenocarcinoma, Results for this AM CDT NOS of pancreas, procedure a re in NOS the results section. CALCIUM LEVEL Routine 05/30/2023 11:52 Adenocarcinoma, Results for this AM CDT NOS of pancreas, procedure a re in NOS the results section. .GLOMERULAR FILTRATION Routine 05/30/2023 11:52 Adenocarcinoma , Results for this RATE AM CDT NOS of pancreas, procedure a re in NOS the results section. SERUM CREATININE Routine 05/30/2023 11:52 Adenocarcinoma, Resu lts for this AM CDT NOS of pancreas, procedure a re in NOS the results section. ELECTROLYTE PANEL Routine 05/30/2023 11:52 Adenocarcinoma, Res ults for this AM CDT NOS of pancreas, procedure a re in NOS the results section. BLOOD UREA NITROGEN Routine 05/30/2023 11:52 Adenocarcinoma, R esults for this AM CDT NOS of pancreas, procedure a re in NOS the results section. GLUCOSE LEVEL Routine 05/30/2023 11:52 Adenocarcinoma, Results for this AM CDT NOS of pancreas, procedure a re in NOS the results section. DIFFERENTIAL Routine 05/30/2023 11:52 Adenocarcinoma, Results for this AM CDT NOS of pancreas, procedure a re in NOS the results section. .CBC Routine 05/30/2023 11:52 Adenocarcinoma, Results for this AM CDT NOS of pancreas, procedure a re in NOS the results section. CARBOHYDRATE ANTIGEN Routine 05/30/2023 11:52 Adenocarcinoma, Results for this 19-9 AM CDT NOS of pancreas, procedure a re in NOS the results section. COMPREHENSIVE METABOLIC Routine 05/30/2023 11:52 Adenocarcinom a, PANEL AM CDT NOS of pancreas, NOS COMPLETE BLOOD COUNT W/ Routine 05/30/2023 11:52 Adenocarcinom a, DIFFERENTIAL AM CDT NOS of pancreas, NOS CT CHEST ABDOMEN PELVIS Routine 05/18/2023 8:01 Adenocarcinoma , Results for this W WO CONTRAST AM CDT NOS of pancreas, procedure are in NOS the results section. FRACTIONATED BILIRUBIN Routine 05/17/2023 3:16 Adenocarcinoma, Results for this PM CDT NOS of pancreas, procedure a re in NOS the results section. TOTAL PROTEIN Routine 05/17/2023 3:16 Adenocarcinoma, Results for this PM CDT NOS of pancreas, procedure a re in NOS the results section. ASPARTATE Routine 05/17/2023 3:16 Adenocarcinoma, Results f or this AMINOTRANSFERASE PM CDT NOS of pancreas, procedu re are in NOS the results section. ALANINE AMINOTRANSFERASE Routine 05/17/2023 3:16 Adenocarcinom a, Results for this PM CDT NOS of pancreas, procedure a re in NOS the results section. ALKALINE PHOSPHATASE Routine 05/17/2023 3:16 Adenocarcinoma, R esults for this PM CDT NOS of pancreas, procedure a re in NOS the results section. ALBUMIN LEVEL Routine 05/17/2023 3:16 Adenocarcinoma, Results for this PM CDT NOS of pancreas, procedure a re in NOS the results section. CALCIUM LEVEL Routine 05/17/2023 3:16 Adenocarcinoma, Results for this PM CDT NOS of pancreas, procedure a re in NOS the results section. .GLOMERULAR FILTRATION Routine 05/17/2023 3:16 Adenocarcinoma, Results for this RATE PM CDT NOS of pancreas, procedure a re in NOS the results section. SERUM CREATININE Routine 05/17/2023 3:16 Adenocarcinoma, Resul ts for this PM CDT NOS of pancreas, procedure a re in NOS the results section. ELECTROLYTE PANEL Routine 05/17/2023 3:16 Adenocarcinoma, Resu lts for this PM CDT NOS of pancreas, procedure a re in NOS the results section. BLOOD UREA NITROGEN Routine 05/17/2023 3:16 Adenocarcinoma, Re sults for this PM CDT NOS of pancreas, procedure a re in NOS the results section. GLUCOSE LEVEL Routine 05/17/2023 3:16 Adenocarcinoma, Results for this PM CDT NOS of pancreas, procedure a re in NOS the results section. DIFFERENTIAL Routine 05/17/2023 3:16 Adenocarcinoma, Results f or this PM CDT NOS of pancreas, procedure a re in NOS the results section. .CBC Routine 05/17/2023 3:16 Adenocarcinoma, Results f or this PM CDT NOS of pancreas, procedure a re in NOS the results section. MD MORRIS BLOOD CONTROL Routine 05/17/2023 3:16 Adenocarcinoma, R esults for this PM CDT NOS of pancreas, procedure a re in NOS the results section. HEPATITIS C VIRUS Routine 05/17/2023 3:16 Adenocarcinoma, Resu lts for this ANTIBODY PM CDT NOS of pancreas, procedure a re in NOS the results section. HEPATITIS B SURFACE Routine 05/17/2023 3:16 Adenocarcinoma, Re sults for this ANTIBODY PM CDT NOS of pancreas, procedure a re in NOS the results section. HEPATITIS B SURFACE Routine 05/17/2023 3:16 Adenocarcinoma, Re sults for this ANTIGEN PM CDT NOS of pancreas, procedure a re in NOS the results section. HEPATITIS B CORE Routine 05/17/2023 3:16 Adenocarcinoma, Resul ts for this ANTIBODY PM CDT NOS of pancreas, procedure a re in NOS the results section. CARBOHYDRATE ANTIGEN Routine 05/17/2023 3:16 Adenocarcinoma, R esults for this 19-9 PM CDT NOS of pancreas, procedure a re in NOS the results section. CARCINOEMBRYONIC ANTIGEN Routine 05/17/2023 3:16 Adenocarcinom a, Results for this PM CDT NOS of pancreas, procedure a re in NOS the results section. PROTHROMBIN TIME Routine 05/17/2023 3:16 Adenocarcinoma, Resul ts for this PM CDT NOS of pancreas, procedure a re in NOS the results section. PHOSPHORUS LEVEL Routine 05/17/2023 3:16 Adenocarcinoma, Resul ts for this PM CDT NOS of pancreas, procedure a re in NOS the results section. MAGNESIUM LEVEL Routine 05/17/2023 3:16 Adenocarcinoma, Result s for this PM CDT NOS of pancreas, procedure a re in NOS the results section. LACTATE DEHYDROGENASE Routine 05/17/2023 3:16 Adenocarcinoma, Results for this PM CDT NOS of pancreas, procedure a re in NOS the results section. COMPREHENSIVE METABOLIC Routine 05/17/2023 3:16 Adenocarcinoma , PANEL PM CDT NOS of pancreas, NOS COMPLETE BLOOD COUNT W/ Routine 05/17/2023 3:16 Adenocarcinoma , DIFFERENTIAL PM CDT NOS of pancreas, NOS OSI CT CHEST ABDOMEN Routine 04/21/2023 9:10 Cancer Resu lts for this AM CDT procedure are i n the results section. OSI CT BRAIN Routine 03/07/2023 11:43 Cancer Results for this PM CDT procedure are i n the results section. OSI CT CHEST ABDOMEN Routine 03/07/2023 11:43 Cancer Res ults for this PELVIS PM CDT procedure are i n the results section. OSI CT CHEST ABDOMEN Routine 12/30/2022 11:43 Cancer Res ults for this PELVIS PM CDT procedure are i n the results section. OSI CT CHEST Routine 10/13/2022 11:44 Cancer Results for this PM TRAUMA NURSE procedure are i n the results section. OSI CT ABDOMEN Routine 10/13/2022 11:43 Cancer Results f or this PM TRAUMA NURSE procedure are i n the results section. PATHOLOGY OUTSIDE Routine 09/01/2022 Results fo r this INTERPRETATION procedure are in the results section. after 07/12/2022 Results .Serum Creatinine (07/06/2023 11:27 AM CDT)Only the most recent of4 results within the time period is included. P athologist Signature Creatinine 0.70 0.67 - 1.17 [facility] mg/dL DIAGNOSTIC CENTER Specimen Anatomical Collection Method Collection Time Receive d Time (Source) Location / / Volume Laterality Blood 07/06/2023 11:27 07/06/2023 AM CDT 11:46 AM CDT Charlie Ulloa MD LAB BLOOD ORDERABLES Performing Organization Address City/State/ZIP Code Phon e Number [facility] DIAGNOSTIC Unless otherwise noted, [place], [place] [phone] CENTER all lab tests performed by: Division of Pathology and Laboratory Medicine [address] (ABNORMAL) .CBC (07/06/2023 11:27 AM CDT)Only the most recent of4 resultswithin the time period is included. Analysis Performed At Patho logist Time Signature WBC 9.8 4.1 - 10.5 [facility] K/uL DIAGNOSTIC CENTER RBC 3.85 (L) 4.30 - [facility] 6.04 M/uL DIAGNOSTIC CENTER Hgb 9.6 (L) 13.3 - [facility] 17.4 gm/dL DIAGNOSTIC CENTER Hct 31.4 (L) 39.5 - [facility] 51.8 % DIAGNOSTIC CENTER MCV 82 82 - 99 fL [facility] DIAGNO[facility]ENTER MCH 24.9 (L) 26.6 - [facility] 33.2 pg DIAGNOSTIC CENTER MCHC 30.6 (L) 31.1 - [facility] 35.2 gm/dL DIAGNOSTIC CENTER RDW-SD 46.9 37.5 - [facility] 49.7 fL DIAGNOSTIC CENTER RDW-CV 15.8 (H) 11.6 - [facility] 15.5 % DIAGNOSTIC CENTER Platelet count 257 160 - 397 [facility] K/uL DIAGNOSTIC CENTER MPV 10.0 9.1 - 12.6 [facility] fL DIAGNOSTIC CENTER INRBC 0.0 0.0 - 0.1 [facility] /100 WBC DIAGNOSTIC CENTER Comment: The INRBC (instrument NRBC) value reflec ts the enumeration of nucleated red blood cells contained i n a 200uL sample of whole blood analyzed by the instrumen t. This value may differ from the NRBC value reported in a manual differential, which is based on a 100 cell differentia l. Specimen Anatomical Collection Method Collection Time Receive d Time (Source) Location / / Volume Laterality Blood 07/06/2023 11:27 07/06/2023 AM CDT 11:33 AM CDT Charlie Ulloa MD LAB BLOOD ORDERABLES Performing Organization Address City/State/ZIP Code Phon e Number [facility] DIAGNOSTIC Unless otherwise noted, [place], [place] [address] CENTER all lab tests performed by: Division of Pathology and Laboratory Medicine [address] [place] [address] Glomerular Filtration Rate (07/06/2023 11:27 AM CDT)Only the most recent of4 resultswithin the time period is included. P athologist Signature eGFR 109 >=60 [facility] mL/min/1.73 DIAGNOSTIC sq. m CENTER Comment: The eGFRcr is calculated with the 2020 KD-EPI creatinine equation using creatinine, patient's age, and sex for adults 18 years of age and older. Other factors, especially muscle mass, may affect accuracy and need to be considered. According to the Kidney Disease: Improvi ng Global Outcomes (KDIGO) CKD Work Group 2012 Clinical Practice Guideline, chronic kidney disease (CKD) is defined as the abnormalities of kidney structure or function, present for more than 3 months, with implications for health. CKD should be c lassified by cause, GFR category, and albuminuria category. KDIGO guidelines provide the following GFR categories Stage Description GFR mL/min/1.73 m2 G1* Normal or high >= 90 G2* Mildly decreased 60-89 G3a Mildly to moderately decreased 45-59 G3b Moderately to severely decreased 30- 44 G4 Severely decreased 15-29 G5 Kidney failure <15 *In the absence of evidence of kidney da mage, neither G1 nor G2 fulfill criteria for CKD. Specimen Anatomical Collection Method Collection Time Receive d Time (Source) Location / / Volume Laterality Blood 07/06/2023 11:27 07/06/2023 AM CDT 11:46 AM CDT Charlie Ulloa MD LAB BLOOD ORDERABLES Performing Organization Address City/[facility] Code Phon e Number [facility] Unless otherwise noted, [address] all lab tests performed by: Division of Pathology and Laboratory Medicine [address] [place] [address] Fractionated Bilirubin (07/06/2023 11:27 AM CDT)Only the most recent of4 results within the time period is included. athologist Signature Bili Total 0.6 <=1.2 mg/dL [facility] DIAGNOSTIC CENTER Comment: Indocyanine Green (ICG) may cause falsel y elevated bilirubin results. Total and direct bilirubin must not be measured from samples containing indocyanine green. False elevation of total bilirubin can b e seen in patients with IgG concentrations above 28 g/L. Bili Direct 0.2 <=0.3 mg/dL [facility] D IAGNOSTIC CENTER Comment: Indocyanine Green (ICG) may cau se falsely elevated bilirubin results. Total and direct bilirubin must not be measure d from samples containing indocyanine green. Bili Indirect 0.4 0.0 - 0.9 mg/dL [facility] DIAGNOSTIC CENTER Specimen Anatomical Collection Method Collection Time Receive d Time (Source) Location / / Volume Laterality Blood 07/06/2023 11:27 07/06/2023 AM CDT 11:46 AM CDT Charlie Ulloa MD LAB BLOOD ORDERABLES Performing Organization Address City/[facility] Phon e Number [facility] Unless otherwise noted, [place] [phone] [place] all lab tests performed by: Division of Pathology and Laboratory Medicine [address] [facility] aPTT (07/06/2023 11:27 AM CDT)Only the most recent of2 resultswithin the time period is included. [facility] aPTT 32.3 24.1 - 35.5 [facility](s) CANCER CENTER Specimen Anatomical Collection Method Collection Time Receive d Time (Source) Location / / Volume Laterality Blood 07/06/2023 11:27 07/06/2023 AM CDT 11:38 AM CDT Narrative [facility] - 12:28 PM CDT This lab cannot be scheduled at the foll owing locations due to collection/proccessing restrictions: [facility] and [facility]. Charlie Ulloa MD LAB BLOOD ORDERABLES Performing Organization Address City/State/ZIP Code Phon e Number [facility] CANCER Unless otherwise noted, [place] [address] [place] all lab tests performed by: Division of Pathology and Laboratory Medicine [facility] (ABNORMAL) Differential (07/06/2023 11:27 AM CDT)Only the most recent of4 resultswithin the time period is included. [facility] Neutrophil % 80.3 (H) 43.2 - [facility] 72.7 % DIAGNOSTIC CENTER Lymphocyte % 10.6 (L) 16.8 - [facility] 46.2 % DIAGNOSTIC CENTER Monocyte % 8.3 5.1 - 12.5 [facility] DIAGNOSTIC CENTER Eosinophil % 0.2 (L) 0.4 - 6.3 [facility] % DIAGNOSTIC CENTER Basophil % 0.3 0.2 - 1.4 [facility] % DIAGNOSTIC CENTER IGRE % 0.3 0.1 - 1.5 [facility] % DIAGNOSTIC CENTER Comment: IGRE % count includes Metamyelo cytes, Myelocytes, and Promyelocytes. Neutrophil Abs 7.85 (H) 1.95 - 7.25 K/uL [facility] [place] Lymphocyte Abs 1.04 1.01 - 3.24 K/uL [facility] [place] Monocyte Abs 0.81 0.24 - 0.85 K/uL [facility] Eosinophil Abs 0.02 0.02 - 0.50 K/uL [facility] Basophil Abs 0.03 0.02 - 0.09 K/uL [facility] IG Abs 0.03 0.01 - 0.12 K/uL [facility] CENTER Specimen Anatomical Collection Method Collection Time Receive d Time (Source) Location / / Volume Laterality Blood 07/06/2023 11:27 07/06/2023 AM CDT 11:33 AM CDT Charlie Ulloa MD LAB BLOOD ORDERABLES Performing Organization Address City/[facility] Phon e Number [facility] DIAGNOSTIC Unless otherwise noted, [place], [place] [phone] [place] all lab tests performed by: Division of Pathology and Laboratory Medicine [address] (ABNORMAL) Prothrombin Time with INR (07/06/2023 11:27 AM CDT)Only the most recent of3 resultswithin the time period is included. P athologist Signature PT 14.6 (H) 11.9 - 14.5 [facility] CANCER CENTER INR 1.15 (H) 0.87 - 1.12 [facility] Specimen Anatomical Collection Method Collection Time Receive d Time (Source) Location / / Volume Laterality Blood 07/06/2023 11:27 07/06/2023 AM CDT 11:38 AM CDT Narrative [facility] - 12:28 PM CDT This lab cannot be scheduled at the foll [facility] locations due to collection/proccessing restrictions: [facility] and [facility] DIAG LAB CTR. Charlie Ulloa MD LAB BLOOD ORDERABLES Performing Organization Address City/[facility] Code Phon e Number [facility] CANCER Unless otherwise noted, [place] [address] CENTER all lab tests performed by: Division of Pathology and Laboratory Medicine [address] (ABNORMAL) Uric Acid (07/06/2023 11:27 AM CDT)Only the most recent of2 results within the time period is included. P athologist Signature Uric Acid 3.2 (L) 3.4 - 7.0 [facility] mg/dL DIAGNOSTIC CENTER Specimen Anatomical Collection Method Collection Time Receive d Time (Source) Location / / Volume Laterality Blood 07/06/2023 11:27 07/06/2023 AM CDT 11:46 AM CDT Charlie Ulloa MD LAB BLOOD ORDERABLES Performing Organization Address [facility] Phon e Number [facility] DIAGNOSTIC Unless otherwise noted, [address] all lab tests performed by: Division of Pathology and Laboratory Medicine [address] [place] [address] BUN (07/06/2023 11:27 AM CDT)Only the most recent of4 resultswithin the time period is included. athologist Signature BUN 11 6 - 23 [facility] mg/dL DIAGNOSTIC CENTER Specimen Anatomical Collection Method Collection Time Receive d Time (Source) Location / / Volume Laterality Blood 07/06/2023 11:27 07/06/2023 AM CDT 11:46 AM CDT Charlie Ulloa MD LAB BLOOD ORDERABLES Performing Organization Address [facility] Phon e Number [facility] DIAGNOSTIC Unless otherwise noted, [address] all lab tests performed by: Division of Pathology and Laboratory Medicine [address] [place] [address] ALT (07/06/2023 11:27 AM CDT)Only the most recent of4 resultswithin the time period is included. athologist Signature ALT 26 <=41 U/L [facility] Specimen Anatomical Collection Method Collection Time Receive d Time (Source) Location / / Volume Laterality Blood 07/06/2023 11:27 07/06/2023 AM CDT 11:46 AM CDT Charlie Ulloa MD LAB BLOOD ORDERABLES Performing Organization Address City/[facility] Phon e Number [facility] DIAGNOSTIC Unless otherwise noted, [address] all lab tests performed by: Division of Pathology and Laboratory Medicine [address] [place] [address] Aspartate Aminotransferase (07/06/2023 11:27 AM CDT)Only the most recent of4 resultswithin the time period is included. athologist Signature AST 23 <=40 U/L [facility] Specimen Anatomical Collection Method Collection Time Receive d Time (Source) Location / / Volume Laterality Blood 07/06/2023 11:27 07/06/2023 AM CDT 11:46 AM CDT Charlie Ulloa MD LAB BLOOD ORDERABLES Performing Organization Address City/[facility]/ZIP Code Phon e Number [facility] DIAGNOSTIC Unless otherwise noted, [address] all lab tests performed by: Division of Pathology and Laboratory Medicine [address] Total Protein (07/06/2023 11:27 AM CDT)Only the most recent of4 resultswithin the time period is included. P athologist Signature Total Protein 7.6 6.4 - 8.3 [facility] g/dL DIAGNOSTIC CENTER Specimen Anatomical Collection Method Collection Time Receive d Time (Source) Location / / Volume Laterality Blood 07/06/2023 11:27 07/06/2023 AM CDT 11:46 AM CDT Charlie Ulloa MD LAB BLOOD ORDERABLES Performing Organization Address [facility]/ZIP Code Phon e Number [facility] DIAGNOSTIC Unless otherwise noted, [address] all lab tests performed by: Division of Pathology and Laboratory Medicine [address] Phosphorus Level (07/06/2023 11:27 AM CDT)Only the most recent of2 resultswithin the time period is included. P athologist Signature Phosphorus 4.0 2.5 - 4.5 [facility] mg/dL [facility] Specimen Anatomical Collection Method Collection Time Receive d Time (Source) Location / / Volume Laterality Blood 07/06/2023 11:27 07/06/2023 AM CDT 11:46 AM CDT Charlie Ulloa MD LAB BLOOD ORDERABLES Performing Organization Address City/[facility]/ZIP Code Phon e Number [facility] DIAGNOSTIC Unless otherwise noted, [address] all lab tests performed by: Division of Pathology and Laboratory Medicine [address] (ABNORMAL) Alkaline Phosphatase (07/06/2023 11:27 AM CDT)Only the most recent of 4 resultswithin the time period is included. P athologist Signature Alk Phos 161 (H) 40 - 129 [facility] U/L DIAGNOSTIC CENTER Specimen Anatomical Collection Method Collection Time Receive d Time (Source) Location / / Volume Laterality Blood 07/06/2023 11:27 07/06/2023 AM CDT 11:46 AM CDT Charlie Ulloa MD LAB BLOOD ORDERABLES Performing Organization Address [facility] Phon e Number [facility] DIAGNOSTIC Unless otherwise noted, [address] all lab tests performed by: Division of Pathology and Laboratory Medicine [facility] Magnesium Level (07/06/2023 11:27 AM CDT)Only the most recent of3 resultswithin the time period is included. athologist [facility] Magnesium 2.2 1.6 - 2.6 [facility] mg/dL DIAGNOSTIC CENTER Specimen Anatomical Collection Method Collection Time Receive d Time (Source) Location / / Volume Laterality Blood 07/06/2023 11:27 07/06/2023 AM CDT 11:46 AM CDT Charlie Ulloa MD LAB BLOOD ORDERABLES Performing Organization Address [facility] Phon e Number [facility] DIAGNOSTIC Unless otherwise noted, [address] all lab tests performed by: Division of Pathology and Laboratory Medicine [facility] (ABNORMAL) Lipase Level (07/06/2023 11:27 AM CDT)Only the most recent of2 resultswithin the time period is included. athologist [facility] Lipase Lvl 10 (L) 13 - 60 U/L [facility] Specimen Anatomical Collection Method Collection Time Receive d Time (Source) Location / / Volume Laterality Blood 07/06/2023 11:27 07/06/2023 AM CDT 11:46 AM CDT Charlie Ulloa MD LAB BLOOD ORDERABLES Performing Organization Address [facility] Phon e Number [facility] DIAGNOSTIC Unless otherwise noted, [address] all lab tests performed by: Division of Pathology and Laboratory Medicine [facility] (ABNORMAL) LDH (07/06/2023 11:27 AM CDT)Only the most recent of3 resultswithin the time period is included. athologist Signature LDH 130 (L) 135 - 225 [facility] U/L [facility] Comment: Results greater than 1651 U/L m ay not be reliable due to matrix effect with extended dilution as it exceeds the manu facturer's recommended limit. Caution should be exercised when interpreting such valu es and done in conjunction with clinical context. Specimen Anatomical Collection Method Collection Time Receive d Time (Source) Location / / Volume Laterality Blood 07/06/2023 11:27 07/06/2023 AM CDT 11:49 AM CDT Charlie Ulloa MD LAB BLOOD ORDERABLES Performing Organization Address City/[facility]/ZIP Code Phon e Number [facility] [facility] Unless otherwise noted, [address] all lab tests performed by: Division of Pathology and Laboratory Medicine [address] (ABNORMAL) Glucose Level (07/06/2023 11:27 AM CDT)Only the most recent of4 resultswithin the time period is included. P athologist Signature Glucose Level 131 (H) 70 - 99 [facility] mg/dL [facility] Comment: Effective 04/13/16, the glucose reference intervals have been updated based on [place] [employer] guidelines (Standards of Medical Care in Diabetes 2016. Diabetes Care 2016; 39: S13-S22). Fasting blood glucose: Normal: 70-99 mg/dL Impaired fasting glucose (increased risk for diabetes or pre-diabetes): 100- 125 mg/dL Diabetes mellitus: >/=126 mg/dL Random blood glucose: Normal: 70-199 mg/dL Note: Random glucose >100 mg/dL is assoc iated with increased risk for diabetes Specimen Anatomical Collection Method Collection Time Receive d Time (Source) Location / / Volume Laterality Blood 07/06/2023 11:27 07/06/2023 AM CDT 11:46 AM CDT Charlie Ulloa MD LAB BLOOD ORDERABLES Performing Organization Address City/[facility]/ZIP Code Phon e Number [facility] Unless otherwise noted, [place] [address] [place] all lab tests performed by: Division of Pathology and Laboratory Medicine [address] Calcium Level (07/06/2023 11:27 AM CDT)Only the most recent of4 resultswithin the time period is included. P athologist Signature Calcium Lvl 9.7 8.4 - 10.2 [facility] mg/dL [facility] Specimen Anatomical Collection Method Collection Time Receive d Time (Source) Location / / Volume Laterality Blood 07/06/2023 11:27 07/06/2023 AM CDT 11:46 AM CDT Charlie Ulloa MD LAB BLOOD ORDERABLES Performing Organization Address [facility] Phon e Number [facility] Unless otherwise noted, [address] all lab tests performed by: Division of Pathology and Laboratory Medicine [address] (ABNORMAL) Amylase Level (07/06/2023 11:27 AM CDT)Only the most recent of2 resultswithin the time period is included. athologist Signature Amylase Lvl 24 (L) 28 - 100 [facility] U/L DI[facility]NOSTIC CENTER Specimen Anatomical Collection Method Collection Time Receive d Time (Source) Location / / Volume Laterality Blood 07/06/2023 11:27 07/06/2023 AM CDT 11:46 AM CDT Charlie Ulloa MD LAB BLOOD ORDERABLES Performing Organization Address [facility] Phon e Number [facility] Unless otherwise noted, [address] all lab tests performed by: Division of Pathology and Laboratory Medicine [facility] Albumin Level (07/06/2023 11:27 AM CDT)Only the most recent of4 resultswithin the time period is included. athologist Signature Albumin Lvl 3.7 3.5 - 5.2 [facility] gm/dL DIAGNOSTIC CENTER Specimen Anatomical Collection Method Collection Time Receive d Time (Source) Location / / Volume Laterality Blood 07/06/2023 11:27 07/06/2023 AM CDT 11:46 AM CDT Charlie Ulloa MD LAB BLOOD ORDERABLES Performing Organization Address [facility] Phon e Number [facility] Unless otherwise noted, [address] all lab tests performed by: Division of Pathology and Laboratory Medicine [address] (ABNORMAL) Electrolyte Panel (07/06/2023 11:27 AM CDT)Only the most recent of4 resultswithin the time period is included. athologist Signature Sodium Lvl 133 (L) 136 - 145 [facility] mEq/L DIAGNOSTIC CENTER Potassium Lvl 5.4 (H) 3.5 - 5.1 [facility] mEq/L DIAGNOSTIC CENTER Chloride 95 (L) 98 - 107 [facility] mEq/L DIAGNOSTIC CENTER CO2 34 (H) 22 - 29 [facility] mEq/L DIAGNOSTIC CENTER Anion Gap 4 4 - 14 [facility] mEq/L DIAGNOSTIC CENTER Specimen Anatomical Collection Method Collection Time Receive d Time (Source) Location / / Volume Laterality Blood 07/06/2023 11:27 07/06/2023 AM CDT 11:46 AM CDT Charlie Ulloa MD LAB BLOOD ORDERABLES Performing Organization Address City/State/ZIP Code Phon e Number [facility] Unless otherwise noted, [place], [place] [address] CENTER all lab tests performed by: Division of Pathology and Laboratory Medicine [address] [facility] (07/05/2023 4:07 PM CDT) Anatomical Region Laterality Modality Other Specimen (Source) Anatomical Collection Method Collection Time Re ceived Time Location / / Volume Laterality 07/05/2023 4:09 PM CDT Impressions 07/05/2023 4:09 PM CDT Tumor metrics have been completed. I personally reviewed these images and agree with the tumor metrics. Narrative 07/05/2023 4:09 PM CDT FULL RESULT: Examination: [facility] on 07/05/2023 16:09 PM Indication:Adenocarcinoma, NOS of pancre as, NOS Findings: Tumor metrics have been comple bell. Procedure Note Annabella Orlando MD - 07/05/2023Forma tting of this note might be different from the original. FULL RESULT: Examination: [facility] on 07/05/2023 16:09 PM Indication:Adenocarcinoma, NOS of pancre as, NOS Findings: Tumor metrics have been comple bell. IMPRESSION: Tumor metrics have been completed. I per sonally reviewed these images and agree with the tumor metrics. Jaylin Snell APRN IMG [facility] ORDERABLES CT Chest Abdomen Pelvis with and without Contrast (07/04/2023 7:33 PM CDT)Only the most recent of2 resultswithin the time period is included. Anatomical Region Laterality Modality Abdomen, Pelvis, Chest Computed Tomograp hy Specimen (Source) Anatomical Collection Method Collection Time Re ceived Time Location / / Volume Laterality 07/05/2023 12:55 PM CDT Impressions 07/05/2023 2:06 PM CDT 1. Compared to 05/18/2023 there are jazz ral new or increased lesions in the liver. Some are consistent with metastases. However, others could represent intrahepatic abscesses, in particular the segment 5 lesion that appears to communicate wit h the gallbladder. 2. Several intrahepatic biliary radicles are distended with low density material which may represent nonspecific debris. Findings could also represent sequela of cholangitis. 3. Locally advanced, infiltrative pancre atic head tumor is increased in size. Anterior diaphragmatic, pericardial, peripancreatic and mesenteric lymph nodes are increased. ACTIONABLE ITEMS/RECOMMENDATIONS: See Im pression Narrative 07/05/2023 2:06 PM CDT FULL RESULT: Examination: CT CHEST ABDOMEN PELVIS W W O CONTRAST on 07/04/2023 7:33 PM. Clinical History: Adenocarcinoma, NOS of pancreas, NOS Indication: Comparison: 05/18/2020. Technique: CT CHEST ABDOMEN PELVIS W WO CONTRAST CHEST FINDINGS: Lines: Tip of right-sided chest port pro jects in the lower SVC/cavoatrial junction. Lungs and Pleura: No new or enlarging linares spicious pulmonary nodules. A few scattered tiny nodules measuring up to 0.3 cm (annotated on series 303). No pleural effusions. Cardiomediastinum: The heart is normal i n size. No pericardial effusion. Lymph nodes: No enlarging mediastinal, h ilar, or axillary lymphadenopathy. Right anterior diaphragmatic and pericar dial lymph nodes are increased, measuring up to 1.1 cm (series 302, images 155 - 158). ABDOMEN AND PELVIS FINDINGS: Hepatobiliary: Several new or increased liver lesions c onsistent with metastases. For example: * 1.3 cm lesion in segment 8 (302/154) * Left hepatic lesion measuring 1.9 cm (302/174) previous 1.5 cm * Right hepatic lesion measuring 1.0 c m (302/177) previously 0.5 cm. A heterogeneous mass in segment 5 measur ing 3.3 cm is also new (302/185). This demonstrates thickened lloyd and central low density. While this could represent metastasis, there appears to be a tract fr om this mass extending to the gallbladde r (302/189), suggesting this may represent focal intrahepatic abscess. Indeterminant subcapsular hypodensity measuring 1.3 cm adjacent to gallbladder (302/192). G allbladder itself is collapsed around a pigtail drainage catheter. Other small lesions also demonstrate milind e thickened lloyd measuring up to 1.0 cm, for example in segment 4 and 8 (series 302, image 159). Most of these are probably metastases, but some could represent abscesses. Additionally several intrahepatic bile d uct demonstrate dilatation and internal low density/solid material (for example in segment 5/8 on series 302, image 170). These are indeterminant, possibly repres enting some nonspecific debris and/or se quela of cholangitis. Additional areas of mild intrahepatic biliary dilatation. There is pneumobilia. Common bile duct stent in place. Spleen: No splenomegaly. Pancreas: Locally advanced pancreatic tu mor has increased in size , measuring approximately 5.4 x 4.3 cm (302/192) compared to 4.3 x 3.9 cm when measured in a similar manner previously. Tumor infiltrati on along the duodenum, root of the mesen vera, and retroperitoneum has increased. Vascular involvement appears to have increased. Celiac artery, common hepatic artery, le ft gastric artery, and SMA appear encased. Encasement of the portal vein and splenoportal confluence. Superior mesenteric vein is encased. This is increased from previous. Tumor likely contacts the left renal vein IVC. Adrenal Glands: Left adrenal nodularity. There may be some tumor contact of left adrenal gland. Normal right adrenal gland. Kidneys: No hydronephrosis, or suspiciou s renal mass. Gastrointestinal Tract: No definite shellie janel outlet obstruction. No small or large bowel obstruction. Moderate amount of stool throughout the colon. Colonic diverticulosis without diverticulitis. Peritoneum/Retroperitoneum: 6 trace amou nt of ascites, scattered peritoneal stranding are similar, could be reactive versus carcinomatosis. Lymph Nodes: Peripancreatic and mesenter ic lymphadenopathy has increased. For example a centrally necrotic 1.7 cm mesenteric node (302/201) previously 0.9 cm. Vessels: Aorta and IVC are normal in davide iber. Reproductive Organs: Prostate gland is e nlarged and heterogeneous. Urinary Bladder: Bladder wall is thicken ed which may be related to chronic outlet obstruction. MUSCULOSKELETAL FINDINGS: No soft tissue mass. No suspicious osseo us lesions. Procedure Note Kin Perez MD - 07/05/2023Formatting o f this note might be different from the original. FULL RESULT: Examination: CT CHEST ABDOMEN PELVIS W W O CONTRAST on 07/04/2023 7:33 PM. Clinical History: Adenocarcinoma, NOS of pancreas, NOS Indication: Comparison: 05/18/2020. Technique: CT CHEST ABDOMEN PELVIS W WO CONTRAST CHEST FINDINGS: Lines: Tip of right-sided chest port pro jects in the lower SVC/cavoatrial junction. Lungs and Pleura: No new or enlarging linares spicious pulmonary nodules. A few scattered tiny nodules measuring up to 0.3 cm (annotated on series 303). No pleural effusions. Cardiomediastinum: The heart is normal i n size. No pericardial effusion. Lymph nodes: No enlarging mediastinal, h ilar, or axillary lymphadenopathy. Right anterior diaphragmatic and pericar dial lymph nodes are increased, measuring up to 1.1 cm (series 302, images 155 - 158). ABDOMEN AND PELVIS FINDINGS: Hepatobiliary: Several new or increased liver lesions c onsistent with metastases. For example: * 1.3 cm lesion in segment 8 (302/154) * Left hepatic lesion measuring 1.9 cm ( 302/174) previous 1.5 cm * Right hepatic lesion measuring 1.0 cm (302/177) previously 0.5 cm. A heterogeneous mass in segment 5 measur ing 3.3 cm is also new (302/185). This demonstrates thickened lloyd and central low density. While this could represent metastasis, there appears to be a tract from this mass extending to the gallbladder (302/189), suggesting this may represent focal intrahepatic abscess. Indeterminant subcapsular hypodensity measuring 1.3 cm adjacent to gallbladder (302/192). Gallbladder itself is collapsed around a pigtail drainage cath eter. Other small lesions also demonstrate milind e thickened lloyd measuring up to 1.0 cm, for example in segment 4 and 8 (series 302, image 159). Most of these are probably metastases, but some could represent abscesses. Additionally several intrahepatic bile d uct demonstrate dilatation and internal low density/solid material (for example in segment 5/8 on series 302, image 170). These are indeterminant, possibly representing some nonspecific debris and/or sequela of cho langitis. Additional areas of mild intrahepatic biliary dilatation. There is pneumobilia. Common bile duct stent in place. Spleen: No splenomegaly. Pancreas: Locally advanced pancreatic tu mor has increased in size , measuring approximately 5.4 x 4.3 cm (302/192) compared to 4.3 x 3.9 cm when measured in a similar manner previously. Tumor infiltration along the duodenum, root of the mesentery, and ret roperitoneum has increased. Vascular involvement appears to have increased. Celiac artery, common hepatic artery, le ft gastric artery, and SMA appear encased. Encasement of the portal vein and splenoportal confluence. Superior mesenteric vein is encased. This is increased from previous. Tumor likely contacts the left renal vei n IVC. Adrenal Glands: Left adrenal nodularity. There may be some tumor contact of left adrenal gland. Normal right adrenal gland. Kidneys: No hydronephrosis, or suspiciou s renal mass. Gastrointestinal Tract: No definite shellie janel outlet obstruction. No small or large bowel obstruction. Moderate amount of stool throughout the colon. Colonic diverticulosis without diverticulitis. Peritoneum/Retroperitoneum: 6 trace amou nt of ascites, scattered peritoneal stranding are similar, could be reactive versus carcinomatosis. Lymph Nodes: Peripancreatic and mesenter ic lymphadenopathy has increased. For example a centrally necrotic 1.7 cm mesenteric node (302/201) previously 0.9 cm. Vessels: Aorta and IVC are normal in davide iber. Reproductive Organs: Prostate gland is e nlarged and heterogeneous. Urinary Bladder: Bladder wall is thicken ed which may be related to chronic outlet obstruction. MUSCULOSKELETAL FINDINGS: No soft tissue mass. No suspicious osseo us lesions. IMPRESSION: 1. Compared to 05/18/2023 there are jazz ral new or increased lesions in the liver. Some are consistent with metastases. However, others could represent intrahepatic abscesses, in particular the segment 5 lesion that appears to communicate with the gallblad kadi. 2. Several intrahepatic biliary radicles are distended with low density material which may represent nonspecific debris. Findings could also represent sequela of cholangitis. 3. Locally advanced, infiltrative pancre atic head tumor is increased in size. Anterior diaphragmatic, pericardial, peripancreatic and mesenteric lymph nodes are increased. ACTIONABLE ITEMS/RECOMMENDATIONS: See Im pression Jaylin Snell APRN IMG CT ORDERABLES Echocardiogram 2D Complete (07/04/2023 2:54 PM CDT) P athologist Signature EF 60 ISCV Specimen (Source) Anatomical Collection Method Collection Time Re ceived Time Location / / Volume Laterality 07/04/2023 2:23 PM CDT Narrative ISCV - 07/04/2023 4:16 PM CDT Echocardiographic Report Interpretation Summary A complete two-dimensional transthoracic echocardiogram was performed (2D, M- mode, Spectral and color Doppler). The study was technically difficult. There is no comparison study available. Left ventricular systolic function is no rmal. LV ejection fraction calculated using th e bi-plane method of disks is 60 %. The right ventricle is normal in size an d function. Right ventricular systolic pressure is n ormal. There is no pericardial effusion. Left Ventricle: The left ventricle is grossly normal siz e. LV ejection fraction calculated using the bi-plane method of disks is 60 %. Left ventricular systolic function is normal. I WMSI = 1.00 % Normal = 1 00 Normal GLS Segments Size X - Cannot 2 - 1-2 small Interpret 1 - Normal Hypokine tic 3 - Akinetic 4 - Dyskinetic3- 5 moderate 5 - Aneurysmal 6-14 large 15-16 diffuse Cardiac Mechanics/Speckle Tracking Imagi ng: Normal global longitudinal peak systolic value. Strain Imaging was performed; GLPS avg = -20.5%. Diastology: Indeterminate. Right Ventricle: The right ventricle is normal in size an d function. Atria: Atria are normal in size. Mitral Valve: The mitral valve leaflets appear thicken ed, but open well. Tricuspid Valve: The tricuspid valve is not well visualiz ed, but is grossly normal. There is trace tricuspid regurgitation. Right ventricular systolic pressure is normal. Aortic Valve: The aortic valve is not well visualized. The aortic valve opens well. There is trace aortic regurgitation. Pulmonic Valve: The pulmonic valve is not well visualize d. Great Vessels: Aortic sinuses of Valsalva are borderlin e dilated. The aortic root is not well visualized. The inferior vena cava demonstrates normal size and normal respiratory variation. Pericardium/Pleural: There is no pericardial effusion. MMode/2D Measurements IVSd: 0.98 cm LVIDd: 5.0 cm LVPWd: 1.0 cm Ao root diam: 3.5 cm LVOT diam: 2.5 cm Ao root area: 9.7 cm2 LVOT area: 4.7 cm2 EDV(MOD-A4C): 131.1 ml EDV(MOD-A2C): 151.6 ml ESV(MOD-A4C): 49.2 ml ESV(MOD-A2C): 61.0 ml EF(MOD-A4C): 62.4 % EF(MOD-A2C): 59.8 % LAV(MOD-A2C): 84.9 ml EDV(MOD-bp): 142.4 ml LAV(MOD-A4C): 27.4 ml ESV(MOD-bp): 57.2 ml LAV(MOD-bp): 48.8 ml EF(MOD-bp): 59.9 % LAV(MOD-bp) Indexed: 27.2 ml/m2 EDV (MOD-bp) Index: 79.4 ml/m2 ESV (MOD- bp) Index: 31.9 ml/m2 RWT: 0.41 cm TAPSE (>1.6): 3.4 cm Doppler Measurements MV E max selene: 52.0 cm/sec MV V2 max: 148.0 cm/sec MV A max selene: 63.7 cm/sec MV max P.8 mmHg MV E/A: 0.82 MV V2 mean: 83.1 cm/sec MV mean P.2 mmHg MV V2 VTI: 29.0 cm MVA(VTI): 2.7 cm2 MV dec time: 0.16 sec Ao V2 max: 128.3 cm/sec Ao max P.6 mmHg Ao V2 mean: 79.9 cm/sec Ao mean P.0 mmHg Ao V2 VTI: 19.4 cm LEATHA(I,D): 4.1 cm2 LEATHA(V,D): 3.9 cm2 AI dec slope: 305.7 cm/sec2 LV V1 max P.5 mmHg LV V1 mean P.8 mmHg LV V1 max: 106.4 cm/sec LV V1 mean: 60.7 cm/sec LV V1 VTI: 16.9 cm SV(LVOT): 79.8 ml TR max selene: 223.2 cm/sec TR max P.9 mmHg LEATHA Index (I,D): 2.3 LEATHA Index (V,D): 2.2 Dimensionless Index: 0.83 Procedure Note Sondra Joyner MD - 07/04/2023Formatt ing of this note might be different from the original. Echocardiographic Report Interpretation Summary A complete two-dimensional transthoracic echocardiogram was performed (2D, M- mode, Spectral and color Doppler). The study was technically difficult. There is no comparison study available. Left ventricular systolic function is no rmal. LV ejection fraction calculated using th e bi-plane method of disks is 60 %. The right ventricle is normal in size an d function. Right ventricular systolic pressure is n ormal. There is no pericardial effusion. Left Ventricle: The left ventricle is grossly normal siz e. LV ejection fraction calculated using the bi-plane method of disks is 60 %. Left ventricular systolic function is normal. I WMSI = 1.00 % Normal = 100 Normal GLS Segments Size X - Cannot 2 - 1-2 small Interpret 1 - Normal Hypokinetic 3 - Alberto netic 4 - Dyskinetic3-5 moderate 5 - Aneurysmal 6-14 large 15-16 diffuse Cardiac Mechanics/Speckle Tracking Imagi ng: Normal global longitudinal peak systolic value. Strain Imaging was performed; GLPS avg = -20.5%. Diastology: Indeterminate. Right Ventricle: The right ventricle is normal in size an d function. Atria: Atria are normal in size. Mitral Valve: The mitral valve leaflets appear thicken ed, but open well. Tricuspid Valve: The tricuspid valve is not well visualiz ed, but is grossly normal. There is trace tricuspid regurgitation. Right ventricular systolic pressure is normal. Aortic Valve: The aortic valve is not well visualized. The aortic valve opens well. There is trace aortic regurgitation. Pulmonic Valve: The pulmonic valve is not well visualize d. Great Vessels: Aortic sinuses of Valsalva are borderlin e dilated. The aortic root is not well visualized. The inferior vena cava demonstrates normal size and normal respiratory variation. Pericardium/Pleural: There is no pericardial effusion. MMode/2D Measurements IVSd: 0.98 cm LVIDd: 5.0 cm LVPWd: 1.0 cm Ao root diam: 3.5 cm LVOT diam: 2.5 cm Ao root area: 9.7 cm2 LVOT area: 4.7 cm2 EDV(MOD-A4C): 131.1 ml EDV(MOD-A2C) : 151.6 ml ESV(MOD-A4C): 49.2 ml ESV(MOD-A2C): 61.0 ml EF(MOD-A4C): 62.4 % EF(MOD-A2C): 59. 8 % LAV(MOD-A2C): 84.9 ml EDV(MOD-bp): 142.4 ml LAV(MOD-A4C): 27.4 ml ESV(MOD-bp): 57.2 ml LAV(MOD-bp): 4 8.8 ml EF(MOD-bp): 59.9 % LAV(MOD-bp) Indexed: 27.2 ml/m2 EDV (MOD-bp) Index: 79.4 ml/m2 ESV ( MOD-bp) Index: 31.9 ml/m2 RWT: 0.41 cm TAPSE (>1.6): 3.4 cm Doppler Measurements MV E max selene: 52.0 cm/sec MV V2 max: 148.0 cm/sec MV A max selene: 63.7 cm/sec MV max P.8 mmHg MV E/A: 0.82 MV V2 mean: 83.1 cm/se c MV mean P.2 mmHg MV V2 VTI: 29.0 cm MVA(VTI): 2.7 cm2 MV dec time: 0.16 sec Ao V2 max: 128. 3 cm/sec Ao max P.6 mmHg Ao V2 mean: 79.9 cm/sec Ao mean P.0 mmHg Ao V2 VTI: 19.4 cm LEATHA(I,D): 4.1 cm2 LEATHA(V,D): 3.9 cm2 AI dec slope: 305.7 cm/sec2 LV V1 ma x P.5 mmHg LV V1 mean P.8 mmHg LV V1 max: 106.4 cm/sec LV V1 mean: 60.7 cm/sec LV V1 VTI: 16.9 cm SV(LVOT): 79.8 ml TR max selene: 223.2 cm/sec TR max P.9 mmHg LEATHA Index (I,D): 2.3 LEATHA Index (V,D ): 2.2 Dimensionless Index: 0.83 Jaylin Snell COMMUNITY COORDINATOR CV ECHO ORDERABLES Performing Organization Address City/State/ZIP Code Phon e Number ISCV (ABNORMAL) Urinalysis Microscopic Exam (07/04/2023 8:30 AM CDT) P athologist Signature UA WBC <1 0 - 2 /HPF [facility] [place] Comment: Some reporting parameters within the Uri nalysis test have changed due to the implementation of new instrumentation in the [facility], allowing greater sensitivity of measurement. Urinalysis results rep orted by the [facility] using existing instrumentation, as well as Urinalysis t esting performed manually or by backup methodology at the [facility] will remain relatively unchanged. New reporting parameters and units will not be reported for all campuses. UA RBC <1 0 - 2 /HPF [facility] MD [facility] UA Mucous TRACE Not Seen-Trace /HPF MA MD [facility] UA Bacteria 1+ (A) NOT SEEN /HPF [facility] UA Squam Epi NOT SEEN None-Occasional /HPF [facility] Specimen Anatomical Collection Method Collection Time Receive d Time (Source) Location / / Volume Laterality Urine 07/04/2023 8:30 AM 8:43 CDT AM CDT Jaylin Snell APRN LAB BLOOD ORDERABLES Performing Organization Address City/State/ZIP Code Phon e Number [facility] Unless otherwise noted, [place] [address] [place] all lab tests performed by: Division of Pathology and Laboratory Medicine [facility] HIV 1/2 Antigen/Antibody, Fourth Gen W/RFL (07/04/2023 8:30 AM CDT) Analysis Performed At Patho logist Time Signature HIV Ag/Ab, 4TH NON-REACTI NON-REACTI [facility] VE VE Comment: HIV-1 antigen and HIV-1/HIV-2 antibodies were not detected. There is no laboratory evidenc e of HIV infection. PLEASE NOTE: This information has been d isclosed to you from records whose confidentiality m ay be protected by state law. If your state requires such protection, then the state law prohibits you from making any further disclosure of the inf ormation without the specific written consent of the person to whom it pertains, or as otherwise per mitted by law. A general authorization for the release of medical or other information is NOT sufficient for this purpose. For additional information please refer to [email or web address] [email or web address] (This link is being provided for informa tional/ educational purposes only.) The performance of this assay has not be en clinically validated in patients less than 2 years old. Lab test performed by: Lab Mnemonic: [facility] [address] [address] GEOFF LARRY MD,PHD. Specimen Anatomical Collection Method Collection Time Receive d Time (Source) Location / / Volume Laterality Blood 07/04/2023 8:30 AM 9:08 CDT AM CDT Jaylin Snell APRN LAB BLOOD ORDERABLES Performing Organization Address City/[facility] Code Phon e Number [facility] HBV DNA Quant (07/04/2023 8:30 AM CDT) [facility] Method Time Signature HBV DNA Undetected Undetected [facility] IU/mL [facility] Comment: Result in log IU/mL is Undetected. ADDITIONAL INFORMATIO N The quantification range of this assay i s 10 to 1,000,000,000 IU/mL (1.00 log to 9.00 lo g IU/mL). Testing was performed using the em HBV test ( [employer] with the em 6800 Syste m. Test Performed by: [place] [address] [employer] Supervisor: Martin Saxena M.D. Ph. D.; CLIA# [id number] Specimen Anatomical Collection Method Collection Time Receive d Time (Source) Location / / Volume Laterality Blood 07/04/2023 8:30 AM 9:08 CDT AM CDT Jaylin Snell APRN LAB BLOOD ORDERABLES Performing Organization Address City/[facility] Phon e Number [facility] Unless otherwise noted, [address] all lab tests performed by: Division of Pathology and Laboratory Medicine [address] [place] [address] Hepatitis C Virus Antibody (07/04/2023 8:30 AM CDT)Only the most recent of2 resultswithin the time period is included. [facility] Method Time Signature HCVAb. Non Reactive Non Reactive [facility] Comment: Antibody detection in the immunocompromi sed and immunosuppressed population may be delayed or absent entirely. Therefore serial testing, correlation with other clinical findings, and supplemental testin g (if available) should be taken into co nsideration when interpreting the results. Specimen Anatomical Collection Method Collection Time Receive d Time (Source) Location / / Volume Laterality Blood 07/04/2023 8:30 AM 8:53 CDT AM CDT Jaylin AngArturo CARDOZO LAB BLOOD ORDERABLES Performing Organization Address City/[facility] Phon e Number [facility] Unless otherwise noted, [address] all lab tests performed by: Division of Pathology and Laboratory Medicine [facility] [place] (ABNORMAL) CA 19-9 (07/04/2023 8:30 AM CDT)Only the most recent of3 results within the time period is included. P athologist Signature [place] 19-9 12,300.0 <=35.0 [facility] (H) U/mL [facility] Comment: Results greater than 9500 U/mL may not b e reliable due to matrix effect with extended dilution as it exceeds the distribution specialist's recommended limit. Caution should be exercised when interpreting such valu es and done in conjunction with clinical context. This test is measured by electrochemilum inescence immunoassay on [employer] Em immunoassay analyzers. Results obtained in different methods are not interchangeable. Specimen Anatomical Collection Method Collection Time Receive d Time (Source) Location / / Volume Laterality Blood 07/04/2023 8:30 AM 8:47 CDT AM CDT Jaylin AshiaArturo CARDOZO LAB BLOOD ORDERABLES Performing Organization Address City/[facility] Phon e Number [facility] Unless otherwise noted, [address] all lab tests performed by: Division of Pathology and Laboratory Medicine [address] [place] [address] Hepatitis B Surface Ag (07/04/2023 8:30 AM CDT)Only the most recent of2 results within the time period is included. [facility] Method Time Signature HBsAg. Non Reactive Non Reactive [facility] Specimen Anatomical Collection Method Collection Time Receive d Time (Source) Location / / Volume Laterality Blood 07/04/2023 8:30 AM 3 8:53 CDT AM CDT Jaylin Snell APRN LAB BLOOD ORDERABLES Performing Organization Address City/[facility]/ZIP Code Phon e Number [facility] CANCER Unless otherwise noted, [address] all lab tests performed by: Division of Pathology and Laboratory Medicine [facility] [place] (ABNORMAL) Urinalysis w/Microscopic if Indicated (07/04/2023 8:30 AM CDT) Patholo gist Method Time Signature UA Color Yellow Straw-Yel [facility] UA Appear Hazy (A) Clear [facility] UA Glucose NEG NEG mg/dL [facility] UA Bili NEG NEG [facility] UA Ketones Trace (A) NEG mg/dL [facility] UA Spec Grav 1.018 1.003 - [facility] 1.035 [facility] UA Blood NEG NEG [facility] UA pH 6.0 5.0 - 9.0 [facility] UA Protein NEG NEG mg/dL [facility] UA Urobilinogen POS (A) NEG [facility] UA Nitrite NEG NEG [facility] UA Leuk Est NEG NEG [facility] Specimen Anatomical Collection Method Collection Time Receive d Time (Source) Location / / Volume Laterality Urine 07/04/2023 8:30 AM 3 8:43 CDT AM CDT Jaylin Snell APRN URINE ORDERABLES Performing Organization Address City/State/ZIP Code Phon e Number [facility] CANCER Unless otherwise noted, [address] all lab tests performed by: Division of Pathology and Laboratory Medicine [address] [place] TSH (07/04/2023 8:30 AM CDT) P athologist Signature TSH 1.75 0.27 - 4.20 [facility] mcunit/mL [facility] Specimen Anatomical Collection Method Collection Time Receive d Time (Source) Location / / Volume Laterality Blood 07/04/2023 8:30 AM 3 8:47 CDT AM CDT Jaylin Snell APRN LAB BLOOD ORDERABLES Performing Organization Address [facility] Phon e Number [facility] CANCER Unless otherwise noted, [address] all lab tests performed by: Division of Pathology and Laboratory Medicine [address] [facility] CEA (07/04/2023 8:30 AM CDT)Only the most recent of2 resultswithin the time period is included. athologist Signature CEA 11.2 (H) <=3.8 ng/mL [facility] Comment: Reference Ranges: Smoker: 0.0 - 5.5 Non-Smoker: 0.0 - 3.8 This test is measured by electrochemilum inescence immunoassay on [employer] Em immunoassay analyzers. Results obtained in different methods are not interchangeable. Specimen Anatomical Collection Method Collection Time Receive d Time (Source) Location / / Volume Laterality Blood 07/04/2023 8:30 AM 3 8:47 CDT AM CDT Jaylin LópezArturo CARDOZO LAB BLOOD ORDERABLES Performing Organization Address [facility] Phon e Number [facility] CANCER Unless otherwise noted, [address] all lab tests performed by: Division of Pathology and Laboratory Medicine [address] [place] [address] EKG, 12-Lead (Scheduled) (07/04/2023) Specimen (Source) Anatomical Location Collection Method / Collectio n Time Received Time / Laterality Volume Narrative This result has an attachment that is no t available. Jaylin Snell APRN ECG ORDERABLES Performing Organization Address [facility]/[place]IP [facility] [place] Number JACKELINE GUADALUPE MD NGS Blood Control (05/17/2023 3:16 PM CDT) athologist Signature Molecular Yes [facility] (Received) Specimen Anatomical Collection Method Collection Time Receive d Time (Source) Location / / Volume Laterality Blood 05/17/2023 3:16 PM 3 9:38 CDT AM CDT Akila BARRERA MDA IP HP MOLECULAR DIAG IF ORDERABLES Performing Organization Address [facility]/State/ZIP Code Phon e Number [facility] CANCER Unless otherwise noted, [address] all lab tests performed by: Division of Pathology and Laboratory Medicine [address] [place] [address] Hepatitis B Total Ig Core Ab (SCREENING) (anti-HBc total Ig; HBcAb total Ig) (05/17/2023 3:16 PM CDT) [facility] Method Time Signature HBcAb. Non Reactive Non Reactive [facility] Specimen Anatomical Collection Method Collection Time Receive d Time (Source) Location / / Volume Laterality Blood 05/17/2023 3:16 PM 3 7:12 CDT AM CDT Akila BARRERA LAB BLOOD ORDERABLES Performing Organization Address City/[facility]/[place]IP [facility] [place] Number [facility] Unless otherwise noted, [address] all lab tests performed by: Division of Pathology and Laboratory Medicine [address] [place] [address] Hepatitis B Surface Antibody (05/17/2023 3:16 PM CDT) [facility] Method Time Signature HBs Ab Non Reactive Non Reactive [facility] Specimen Anatomical Collection Method Collection Time Receive d Time (Source) Location / / Volume Laterality Blood 05/17/2023 3:16 PM 3 7:12 CDT AM CDT Akila BARRERA LAB BLOOD ORDERABLES Performing Organization Address City/[facility] Phon e Number [facility] Unless otherwise noted, [address] all lab tests performed by: Division of Pathology and Laboratory Medicine [address] [place] [address] CHEST ABDOMEN (04/21/2023 9:10 AM CDT) Specimen (Source) Anatomical Location Collection Method / Collectio n Time Received Time / Laterality Volume Narrative Systemgenerated, Documentation - 023 9:10 AM CDT Study acquired at another institution. For comparison only. No MD [place] originated interpretation requested or a vailable. Pavel GARCÍA OUTSIDE IMAGE ORDERABLES OSI CT CHEST ABDOMEN PELVIS (03/07/2023 11:43 PM CDT)Only the most recent of2 resultswithin the time period is included. Specimen (Source) Anatomical Location Collection Method / Collectio n Time Received Time / Laterality Volume Narrative Systemgenerated, Documentation - 023 11:43 PM CDT Study acquired at another institution. For comparison only. No MD [place] originated interpretation requested or a vailable. Pavel PASCALG OUTSIDE IMAGE ORDERABLES OSI CT Brain (03/07/2023 11:43 PM CDT) Specimen (Source) Anatomical Location Collection Method / Collectio n Time Received Time / Laterality Volume Narrative Systemgenerated, Documentation - 023 11:43 PM CDT Study acquired at another institution. For comparison only. No MD [place] originated interpretation requested or a vailable. Pavel PASCALG OUTSIDE IMAGE ORDERABLES OSI CT Chest (10/13/2022 11:44 PM TRAUMA NURSE) Specimen (Source) Anatomical Location Collection Method / Collectio n Time Received Time / Laterality Volume Narrative Systemgenerated, Documentation - 023 11:44 PM CDT Study acquired at another institution. For comparison only. No MD [place] originated interpretation requested or a vailable. Pavel PASCALG OUTSIDE IMAGE ORDERABLES OSI CT Abdomen (10/13/2022 11:43 PM TRAUMA NURSE) Specimen (Source) Anatomical Location Collection Method / Collectio n Time Received Time / Laterality Volume Narrative Systemgenerated, Documentation - 023 11:43 PM CDT Study acquired at another institution. For comparison only. No MD [place] originated interpretation requested or a vailable. Pavel PASCALG OUTSIDE IMAGE ORDERABLES Pathology Outside Interpretation (09/01/2022) Component Value Ref Test Analysis Performed Pathologis t Range Method Time At [facility] Accession#, Stained, Block, Unstained Collected Received 05/31/2023 [facility] Received A. [id number], 2 SS, 0 BLOCKS, 0 USS 09/01/2022 05/29/2023 9:43 AM CDT Diagnosis Outside ([id number], 2 SS, 0 BLOCKS, 0 USS, colle cted on 09/01/2022): 05/31/2023 [facility] Electronically 9:43 AM signed by A. Pancreas, head, mass, fine needle aspiration/biopsy: CDT Kassandra Orona MD on 9/13 /2023 INVASIVE WELL DIFFERENTIATED DUCTAL ADENOCARCINOMA. (SEE COM MENT) at 9:43 AM Comment Recut sections are 05/31/2023 [facility] submitted for 9:43 AM review. CDT Biomarker T: A1 05/31/2023 [facility] Block(s) 9:43 AM CDT Disclaimer "Some tests 05/31/2023 [facility] reported here may 9:43 AM have been CDT developed and performance characteristics determined by [facility] Pathology and Laboratory Medicine. These tests have not been specifically cleared or approved by the U.S. Food and Drug Administration. If applicable, controls were reviewed and showed appropriate reactivity." Specimen (Source) Anatomical Collection Method Collection Time Re ceived Time Location / / Volume Laterality Tissue specimen 09/01/2022 05/29/2023 1 0:00 (specimen) AM CDT Radha Zambrano MD LAB PATHOLOGY ORDERABLES Performing Organization Address City/State/ZIP Code Phon e Number [facility] [place] [address], [address] [place] after 07/12/2022 Insurance Payer Benefit Plan Subscriber ID Effective Phone Address Typ e / Group Dates [facility] [id number] 2022-[place] [address] [place] [place] [id number] [place] [address] Care 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
--- OUTSIDE RECORDS SUMMARY | 2023-07-12 06:20 | XMS REPORT | Continuity of Care Document ---
:1970 Author Organization [facility] t Address [address] [place] [address] [place] [id number] Care Team Providers Name Role Phone [phone] Primary Care Physician Unavailable Francie Dillon MA Attending Clinician Jaylin Snell APRN Attending Clinician [phone] Monae VALLES, Haley Proctor Attending Clinician JAYLIN SNELL Attending Clinician Unavailable Charlie Hodges MD Attending Clinician CHARLIE HODGES Attending Clinician Unavailable Jen Gallego Attending Clinician Unavailable Arnie Bella PharmD Attending Clinician Unavailable Sarah VALLES, Alexi Chao Attending Clinician Unavailable Eliz Camejo RPH Attending Clinician Annette Dumont Attending Clinician Power Carpenter MD Attending Clinician POWER CARPENTER Attending Clinician Unavailable Tommie Cote MD Attending Clinician Glenis Coon MD Attending Clinician GLENIS COON Attending Clinician Unavailable Trena Shirley MD Attending Clinician TRENA SHIRLEY Attending Clinician Unavailable Jamaal Bauman MD Attending Clinician Radha Zambrano MD Attending Clinician Carmelita Foley Attending Clinician CARMELITA KO Attending Clinician Unavailable VANESSA GAYTAN Attending Clinician Unavailable Lukas LEE, Vanessa Galvin Attending Clinician Angela Malone DO Attending Clinician Juan Manuel LEE, Cassie Mazariegos Attending Clinician Merchant LEE, Munir Attending Clinician Sravani Gomez Attending Clinician Morenita LEE, Dilip Chun Attending Clinician Esthela LEE, Dannie Curran Attending Clinician Wayne LEE, Brenden Salazar Attending Clinician [phone] Samy LEE, Effie Flores Attending Clinician ANGELA MALONE Admitting Clinician Unavailable Payers Payer Name Policy Type Policy Number Effective Date Expiration Date [facility] [id number] 2021 00:00:00 Problems Condition Condition Condition Status Onset Resolution Last Treating Co mments Source Name Details Category Date Date Treatment Clinician Date 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, NOS noma, NOS 0-21 ity of of of 00:00: [place] pancreas, pancreas, 00 NOS NOS [facility] Cancer Cancer Disease Active 2022-09 Univers associated associated 0-21 it y of pain pain 00:00: [place] 00 MD Patterson [facility] Abdominal Abdominal Disease Active 2022-09 Uni vers pain, pain, 0-21 ity of epigastric epigastric [place] [facility] 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 Disease Active 2022-09 Uni vers current current 0-21 ity of use of use of 00:00: [place] opiate opiate 00 analgesic analgesic [facility] Malignant Malignant Disease Active 2022-09 Uni vers neoplasm neoplasm 0-18 ity of of body of of body of [place] pancreas pancreas 00 [facility] SBO (small SBO (small Disease Recurre 2021-[address] bowel bowel nce 2-13 [facility] obstructio obstructio 00:00: Me dical n) n) 00 Center Pancreatic Pancreatic Disease Active 2021-[address] mass mass 2-13 [facility] 00:00: Medical 00 Center Allergies, Adverse Reactions, Alerts Allergy Allergy Status Severity Reaction(s) Onset Inactive Treating Comm ents Source Name Type Date Date Clinician NO KNOWN Allergy Active [facility] Family History Family Member Diagnosis Comments Start Date Stop Date Source Natural father Brain cancer Universi ty [facility] Maternal aunt Pancreatic cancer Univ ersity of [place] [facility] Social History Social Habit Start Date Stop Date Quantity Comments Source Sexual orientation Univer sity [facility] MD Vallada[facility] History SDOH [facility] Cigarettes smoked 2023-05-17 2023-05-17 Univers ity of current (pack per 00:00:00 00:00:00 [place] Ehsan Poon ) - Reported Cancer Ce nter Cigarette 2023-05-17 2023-05-17 University of pack-years 00:00:00 00:00:00 Jethro Valladares [facility] Tobacco use and 2023-05-17 2023-05-17 Former smokeless Uni versity of exposure 00:00:00 00:00:00 tobacco user [place] [facility] History of Social 2023-05-17 2023-05-17 Univers ity of function 00:00:00 00:00:00 Jethro Valladares [facility] Tobacco Comment 2023-05-17 2023-05-17 Stop all on my Unive rsity of 00:00:00 00:00:00 own Jethro Valladares [facility] Alcohol Comment 2023-05-17 2023-05-17 08-29-2022 have Univ ersity of 00:00:00 00:00:00 not drink Jethro Valladares [facility] Alcohol intake 2022-09-06 2022-09-06 [facility] of alcohol Medical Center (finding) History SDNV 2022-08-30 2022-08-[address] [facility] Transport Med 00:00:00 00:00:[address] History SDNV 2022-08-30 2022-08-[address] [facility] Housing Unable to 00:00:00 00:00:00 Medical Center Pay History [facility] 2022-08-30 2022-08-[address] [facility] [address] [facility] Housing Places 00:00:00 00:00:00 Medical Ce nter Lived History [facility] 2022-08-30 2022-08-[address] [facility] [address] [facility] Homeless 00:00:00 00:00:00 Medical Center Last Year History of tobacco 2019-10-20 Snuff User Univer sity of use 00:00:00 [place] MD Valladares [facility] Cancer Center Sex Ass[birth year] At [birth year] DHARA Delgado 00:00:00 00:00:00 Medical Center Smoking Status Start Date Stop Date Source Ex-smoker 2023-05-17 00:00:00 2023-05-17 00:00:00 Universi ty of [facility] Cancer Center Never smoked tobacco [facility] Medications Ordered Filled Start Stop Current Ordering Indication Dosage Frequency Signature Comments Components Source Medication Medication Date Date Medication? Clinician (SIG) Name Name procdayanorper 2022-09 Yes Malignant 10mg Take 1 Univers azine 0-19 neoplasm of tablet (10 i ty of (Compazine) 00:00: body of mg) by [place] 10 mg 00 pancreas mouth MD tablet every 6 Anderso (six) n hours as Cancer needed for Center nausea or vomiting. ondansetron 2022-09 Yes Malignant 4mg Take 1 Univers (Zofran) 4 0-19 neoplasm of tablet (4 ity of mg tablet 00:00: body of mg) by Shahid as 00 pancreas mouth MD every 6 Anderso (six) n hours as Cancer needed for Center nausea or vomiting (if not responsive to prochlorpe razine). INV-(2020-09- Yes Malignant 400mg Take 4 Univers 115) 0-19 11-12 neoplasm of capsules ity of [id number] 00:00: 05:59 body of (400 mg) [place] 100 mg 00 :00 pancreas by mouth MD capsule twice Anderso daily for n 21 days. Cancer Take with Center 8 oz of water on empty stomach (no food 2 hours before and 1 hour after dose). irbesartan- 2022-09- No 1{tbl} Take 1 U nivers hydrochloro 0-18 10-18 tablet by it y of thiazide 11:53: 00:00 mouth [place] (AVALIDE) 51 :00 daily. 300-12.5 mg Anderso per tablet n Cancer Center omeprazole 2022-09 Yes 20mg Take 1 Unive rs (PriLOSEC) 0-18 capsule ity of 20 mg 11:53: (20 mg) by [place] capsule 50 mouth MD every Anderso morning n before Cancer breakfast. Astatula senna 2022-09 Yes 1{tbl} Take 1 Univers (SENOKOT) 0-18 tablet by ity o f 8.6 mg 11:53: mouth as [place] tablet 50 needed. MD [facility]enia [facility] metFORMIN 2022-09 Yes Take by Unive rs (GLUCOPHAGE 0-18 mouth ity of ) 500 mg 11:53: daily with Shahid as tablet 50 breakfast. MD Yesenia hendrickson Cancer Astatula pancrelipas 2022-09 Yes [id number] Take 4 Un becca e (CREON) 0-18 capsules ity of 6,000-19,00 11:53: (24,000 Shahid as 0-30,000 50 Units) by units mouth 3 Anderso capsule (three) n times a Cancer day with Center meals. oxyCODONE 2022-09 Yes 5mg Take 1 Univer s (OXY-IR) 5 0-18 capsule (5 ity of mg capsule 11:53: mg) by [place] 50 mouth MD every 4 Anderso (four) n hours as Cancer needed for Center moderate pain. simethicone 2022-09 Yes 80mg Chew 1 Univ ers (MYLICON) 0-18 tablet (80 ity of 80 mg 11:53: mg) every [place] chewable 50 8 (eight) MD tablet hours as Anderso needed for n flatulence Cancer . Center methadone 2022-09 Yes 5mg Take 1 Univer s (DOLOPHINE) 0-18 tablet (5 ity of 5 mg tablet 11:51: mg) [place] 51 mouth MD every 12 Anderso (twelve) n hours. Cancer Center gabapentin 2022-09 Yes 300mg Take 1 Univ ers (NEURONTIN) 0-18 capsule ity o f 300 mg 11:49: (300 mg) [place] capsule 58 by mouth MD at Anderso bedtime. n Cancer Center DULoxetine 2022-09 Yes 30mg Take 1 Unive rs (CYMBALTA) 0-18 capsule ity of 30 mg 11:49: (30 mg) by Jethro capsule 58 mouth MD daily. [facility] irbesartan 2022-09 Yes 300mg Take 1 Univ ers (AVAPRO) 0-07 tablet ity of 300 mg 00:00: (300 mg) [place] tablet 00 by mouth MD daily. [facility] morphine 2022- No TAKE 15MG Uni vers (MS CONTIN) 9-06 10-18 TABLET BY it y of 15 mg ER 00:00: 00:00 MOUTH [place] tablet 00 :00 EVERY MD MORNING Anderso AND AT n NOON AND Cancer TAKE 2 X Center 15MG = 30MG EVERY EVENING FOR 23 DAYS FOR PAIN CONTROL *DO NOT CRUSH* cholecalcif Yes 50ug 50 mcg. Uni vers jacquelyn, 1-23 ity of vitamin D3, 00:00: [place] (VITAMIN 00 D3) 2,000 Anderso units tab n tablet [facility] polyethylen 2021-09- No 17g QD Take [address] e glycol 2-22 -21 by mouth [facility] (GLYCOLAX) 00:00: 23:59 daily for M edical 17 gram 00 :00 30 days. Center packet irbesartan- 2021-09 Yes 1{tbl} QD Take [address] hydrochloro 2-21 tablet by Mikki es thiazide 14:18: mouth Medical (AVALIDE) 22 daily. Center 300-12.5 mg per tablet HYDROcodone 2021-09 Yes as needed. Univers -acetaminop 2-21 ity of hen (NORCO) 00:00: [place] 5 mg-325 mg 00 MD [facility] poly[facility]en 2021-09 Yes as needed. Univers e glycol 2-21 ity of (GLYCOLAX) 00:00: [place] 17 00 MD gram/dose Anderso powder [facility] senna-docus 2021-09- No 1{tbl} QD Take [address] ate 2-21 01-20 tablet by [facility] (SENOKOT S) 00:00: 23:59 mouth Medi davide 8.6-50 mg 00 :00 nightly Center per tablet for 30 days. HYDROcodone 2021-09 No 1{tbl} Take [address] -acetaminop 11-08 tablet by Rut gross (NORCO 00:00: 23:59 mouth Medic al 5-325) 00 :00 every 6 Center 5-325 mg (six) per tablet hours as needed for up to 10 days. Max Daily Amount: 4 tablets Vital Signs Vital Name Observation Time Observation Value Comments Source WEIGHT 2022-08-30 10:21:00 106.595 kg WEIGHT 2022-08-30 10:21:00 106.595 kg WEIGHT 2022-08-30 10:21:00 106.595 kg Systolic blood 2023-07-06 22:00:00 129 mm[Hg] Univer sity of pressure [facility]ethro [facility] Diastolic blood 2023-07-06 22:00:00 81 mm[Hg] Unive rsity of pressure Jethro [facility] Heart rate 2023-07-06 22:00:00 100 /min [facility] Body temperature 2023-07-06 22:00:00 36.5 Vivaina [facility] Respiratory rate 2023-07-06 22:00:00 18 /min [facility] Jethro [facility] Oxygen saturation in 2023-07-06 22:00:00 100 /min [facility] Arterial blood by Jethro bradford Pulse oximetry [facility] Center Body weight 2023-07-06 18:31:[address] MD [facility] BMI 2023-07-06 18:31:00 25.63 kg/m2 [facility] Jethro [facility] Body height 2023-07-05 16:43:[address] MD August on [facility] Systolic blood 2022-09-07 12:00:00 137 mm[Hg] [facility] Center Diastolic blood 2022-09-07 12:00:00 86 mm[Hg] [facility] Center Heart rate 2022-09-07 12:00:00 84 /min [facility] Body temperature 2022-09-07 12:00:00 36.67 Viviana [facility] Respiratory rate 2022-09-07 12:00:00 17 /min [facility] Oxygen saturation in 2022-09-07 12:00:00 95 /min [facility] Arterial blood by Medical Ce michael Pulse oximetry Body height 2022-08-30 10:24:00 170.2 cm [facility] Body weight 2022-08-30 10:24:00 106.595 kg [facility] BMI 2022-08-30 10:24:00 36.81 kg/m2 [facility] Procedures Procedure Date / Time Performing Source Performed Clinician COMPREHENSIVE METABOLIC PANEL 2023-07-06 Charlie Hodges Un iversity of 16:27:00 [place] MD Patterson [facility] COMPLETE BLOOD COUNT W/ 2023-07-[address] of DIFFERENTIAL 16:27:00 [place] MD Patterson [facility] LACTATE DEHYDROGENASE 2023-07-06 Charlie Hodges [place] of 16:27:00 [place] MD Patterson [facility] URIC ACID 2023-07-06 Charlie Hodges [place] of 16:27:00 [place] MD Yesenia hendrickson [facility] MAGNESIUM LEVEL 2023-07-06 Charlie Hodges [place] of 16:27:00 [place] MD Yesenia hendrickson [facility] PHOSPHORUS LEVEL 2023-07-06 Charlie Hodges [place] of 16:27:00 [place] MD Yesenia hendrickson [facility] AMYLASE LEVEL 2023-07-06 Charlie Hodges [place] of 16:27:00 Jethro hendrickson [facility] LIPASE LEVEL 2023-07-06 Charlie Hodges [place] of 16:27:00 Jethro hendrickson [facility] PROTHROMBIN TIME 2023-07-06 Charlie Hodges [place] of 16:27:00 [place] MD Yesenia hendrickson [facility] APTT 2023-07-06 Charlie Hodges [place] of 16:27:00 [place] MD Patterson [facility] GLUCOSE LEVEL 2023-07-06 Charlie Hodges [place] of 16:27:00 [place] MD Patterson [facility] BLOOD UREA NITROGEN 2023-07-06 Charlie Hodges [place] f 16:27:00 [place] MD Yesenia hendrickson [facility] ELECTROLYTE PANEL 2023-07-06 Charlie Hodges [place] of 16:27:00 [place] MD [facility] .GLOMERULAR FILTRATION RATE 2023-07-06 Charlie Hodges [facility] ersity of 16:27:00 [place] [facility] CALCIUM LEVEL 2023-07-06 Charlie Hodges [place] of 16:27:00 [place] [facility] ALBUMIN LEVEL 2023-07-06 Charlie Hodges [place] of 16:27:00 [place] [facility] ALKALINE PHOSPHATASE 2023-07-06 Charlie Hodges University of 16:27:00 [place] [facility] ALANINE AMINOTRANSFERASE 2023-07-[address] [facility] ity of 16:27:00 [place] [facility] ASPARTATE AMINOTRANSFERASE 2023-07-06 [facility] Hod[facility] rs[facility] of 16:27:00 [place] [facility] TOTAL PROTEIN 2023-07-06 Charlie Hodges [place] of 16:27:00 [place] [facility] FRACTIONATED BILIRUBIN 2023-07-06 Nelson Hodgesg Universit y of 16:27:00 [place] [facility] .CBC 2023-07-06 Charlie Hdoges [place] of 16:27:00 [place] [facility] SERUM CREATININE 2023-07-06 Charlie Hodges [place] of 16:27:00 [place] [facility] DIFFERENTIAL 2023-07-06 Charlie Hodges [place] of 16:27:00 [place] [facility] QIAC SERVICES 2023-07-05 [place], University of 21:07:42 Jaylin Morelos MD [facility] CT CHEST ABDOMEN PELVIS W WO 2023-07-05 [place], Uni versity of CONTRAST 00:33:53 Jaylin Morelos MD [facility] ECHOCARDIOGRAM 2D COMPLETE 2023-07-04 Channing [facility] rsity of 19:54:14 Jaylin [facility] CARBOHYDRATE ANTIGEN 19-9 2023-07-04 [place] [facility] sity of 13:30:00 Jaylin Patterson [facility] CARCINOEMBRYONIC ANTIGEN 2023-07-04 [place], [facility] ity of 13:30:00 Jaylin hendrickson [facility] AMYLASE LEVEL 2023-07-04 [facility] 13:30:00 Jaylin hendrickson [facility] APTT 2023-07-04 [facility], [place] of 13:30:00 Jaylin hendrickson [facility] CALCIUM LEVEL 2023-07-04 [facility] [place] of 13:30:00 Jaylin hendrickson [facility] COMPLETE BLOOD COUNT W/ 2023-07-04 AshiaArturo, Universi ty of DIFFERENTIAL 13:30:00 Jaylin hendrickson [facility] COMPREHENSIVE METABOLIC PANEL 2023-07-04 [facility], iversity of 13:30:00 Jaylin hendrickson [facility] HBV DNA QUANT 2023-07-04 [facility] [place] of 13:30:00 Jaylin hendrickson [facility] HEPATITIS B SURFACE ANTIGEN 2023-07-04 AshiaArturo, [facility] ersity of 13:30:00 Jaylin Patterson [facility] HEPATITIS C VIRUS ANTIBODY 2023-07-04 [facility], Unive rsity of 13:30:00 Jaylin hendrickson [facility] HIV 1/2 ANTIGEN/ANTIBODY, FOURTH 2023-07-04 [facility] [place] of GEN W/RFL 13:30:00 Jaylin hendrickson [facility] URINALYSIS WITH MICROSCOPIC IF 2023-07-04 AshiaArturo, U niversity of INDICATED 13:30:00 Jaylin hendrickson [facility] URIC ACID 2023-07-04 [facility] of 13:30:00 Jaylin hendrickson [facility] THYROID STIMULATING HORMONE 2023-07-04 AshiaArturo, [facility] ersity of 13:30:00 Jaylin hendrickson [facility] PROTHROMBIN TIME 2023-07-04 [facility]Arturo[facility] of 13:30:00 Jaylin hendrickson [facility] MAGNESIUM LEVEL 2023-07-04 [place] [facility]ril[facility] CenterArturo[facility] of 13:30:00 Jaylin hendrickson [facility] LIPASE LEVEL 2023-07-04 [facility] 13:30:00 Jaylin Patterson [facility] LACTATE DEHYDROGENASE 2023-07-04 [facility] 13:30:00 Jaylinra [facility] GLUCOSE LEVEL 2023-07-04 [facility] 13:30:00 Jaylin Morelos [facility] BLOOD UREA NITROGEN 2023-07-04 [facility] o f 13:30:00 Jaylinra Jethro hendrickson [facility] ELECTROLYTE PANEL 2023-07-04 [facility] 13:30:00 Jaylinra Jethro Patterson [facility] SERUM CREATININE 2023-07-04 [facility] 13:30:00 Jaylinra Jethro LEE [facility] .GLOMERULAR FILTRATION RATE 2023-07-04 [facility] ersity of 13:30:00 Jaylin Patterson [facility] ALBUMIN LEVEL 2023-07-04 [facility] 13:30:00 Jaylinra [facility] ALKALINE PHOSPHATASE 2023-07-04 [facility] 13:30:00 Jaylin Patterson [facility] ALANINE AMINOTRANSFERASE 2023-07-04 [facility] ity of 13:30:00 Jaylinra [facility] ASPARTATE AMINOTRANSFERASE 2023-07-04 [facility] rsity of 13:30:00 Jaylin hendrickson [facility] TOTAL PROTEIN 2023-07-04 [facility] 13:30:00 Jaylinra Jethro hendrickson [facility] FRACTIONATED BILIRUBIN 2023-07-04 [facility] 13:30:00 Jaylin Patterson [facility] .CBC 2023-07-04 [facility] 13:30:00 Jaylin hendrickson [facility] DIFFERENTIAL 2023-07-04 [facility] 13:30:00 Jaylin Patterson [facility] URINALYSIS MICROSCOPIC EXAM 2023-07-04 [facility] ersity of 13:30:00 Jaylin Morelos MD [facility] EKG, 12-LEAD (SCHEDULED) 2023-07-04 [facility] ity of 00:00:00 Jaylin Morelos MD [facility] COMPLETE BLOOD COUNT W/ 2023-05-30 [facility] of DIFFERENTIAL 16:52:00 [place] [facility] COMPREHENSIVE METABOLIC PANEL 2023-05-30 [employer] Un iversity of 16:52:00 [place] [facility] CARBOHYDRATE ANTIGEN 19-9 2023-05-30 [facility] sity of 16:52:00 [place] [facility] .CBC 2023-05-30 [facility] of 16:52:00 [place] [facility] DIFFERENTIAL 2023-05-30 [facility] of 16:52:00 [place] [facility] GLUCOSE LEVEL 2023-05-30 [facility] of 16:52:00 [place] [facility] BLOOD UREA NITROGEN 2023-05-30 [facility] o f 16:52:00 [place] [facility] ELECTROLYTE PANEL 2023-05-30 [facility] of 16:52:00 [place] [facility] SERUM CREATININE 2023-05-30 [facility] of 16:52:00 [facility] .GLOMERULAR FILTRATION RATE 2023-05-30 [facility] ersity of 16:52:00 [place] [facility] CALCIUM LEVEL 2023-05-30 [facility] of 16:52:00 [place] [facility] ALBUMIN LEVEL 2023-05-30 [facility] of 16:52:00 [place] [facility] ALKALINE PHOSPHATASE 2023-05-30 [facility] of 16:52:00 [place] [facility] ALANINE AMINOTRANSFERASE 2023-05-30 [facility] CenterPowerEvangelical [facility] ity of 16:52:00 [place] [facility] ASPARTATE AMINOTRANSFERASE 2023-05-30 [employer] Unive rsity of 16:52:00 [place] [facility] TOTAL PROTEIN 2023-05-30 [facility] [place] of 16:52:00 [place] [facility] FRACTIONATED BILIRUBIN 2023-05-30 Pauline PowerEvangelical Community Hospitalit y of 16:52:00 [place] [facility] CT CHEST ABDOMEN PELVIS W WO 2023-05-18 Ko, Carmelita Uni versity of CONTRAST 13:01:00 [place] [facility] COMPLETE BLOOD COUNT W/ 2023-05-17Ko, Carmelita [facility] of DIFFERENTIAL 20:16:00 [place] [facility] COMPREHENSIVE METABOLIC PANEL 2023-05-17Ko, Carmelita Un iversity of 20:16:00 [place] [facility] LACTATE DEHYDROGENASE 2023-05-17, [facility] of 20:16:00 [place] [facility] MAGNESIUM LEVEL 2023-05-17, Carmelita [place] of 20:16:00 [place] [facility] PHOSPHORUS LEVEL 2023-05-17, [facility] of 20:16:00 [place] [facility] PROTHROMBIN TIME 2023-05-17, [facility] of 20:16:00 [facility]ro [facility] CARCINOEMBRYONIC ANTIGEN 2023-05-17Ko, Carmelita [facility] ity of 20:16:00 Jethro LEE [facility] CARBOHYDRATE ANTIGEN 19-9 2023-05-17Ko, Carmelita Univer sity of 20:16:00 Jethro Patterson [facility] HEPATITIS B CORE ANTIBODY 2023-05-17, Carmelita Univer sity of 20:16:00 Jethro LEE [facility] HEPATITIS B SURFACE ANTIGEN 2023-05-17Ko, [facility] of 20:16:00 Jethro LEE [facility] HEPATITIS B SURFACE ANTIBODY 2023-05-17Ko, [facility] of 20:16:00 [place] [facility] HEPATITIS C VIRUS ANTIBODY 2023-05-17Ko, [facility] of 20:16:00 [place] [facility] NGS BLOOD CONTROL 2023-05-17Ko, [facility] of 20:16:00 [facility] .CBC 2023-05-17, [facility] of 20:16:00 [facility] DIFFERENTIAL 2023-05-17, [facility] of 20:16:00 [facility] GLUCOSE LEVEL 2023-05-17, [facility] of 20:16:00 [facility] BLOOD UREA NITROGEN 2023-05-17, [facility] o f 20:16:00 [facility] ELECTROLYTE PANEL 2023-05-17, [facility] of 20:16:00 [facility] SERUM CREATININE 2023-05-17, [facility] of 20:16:00 [facility] .GLOMERULAR FILTRATION RATE 2023-05-17, [facility] [place] of 20:16:00 [facility] CALCIUM LEVEL 2023-05-17, [facility] of 20:16:00 [facility] ALBUMIN LEVEL 2023-05-17, [facility] of 20:16:00 [facility] ALKALINE PHOSPHATASE 2023-05-17, [facility] of 20:16:00 [place] [facility] ALANINE AMINOTRANSFERASE 2023-05-17, [facility] ity of 20:16:00 [facility] ASPARTATE AMINOTRANSFERASE 2023-05-17, [facility] 20:16[facility]00 [place] [facility] TOTAL PROTEIN 2023-05-17, [facility] of 20:16:00 [facility] FRACTIONATED BILIRUBIN 2023-05-17, [facility] 20:16[facility]00 [place] [facility] OSI CT CHEST ABDOMEN 2023-04-21 [facility] 14:10:00 [facility] OSI CT CHEST ABDOMEN PELVIS 2023-03-08 Pauline Power [facility] ersity of 04:43:00 [place] [facility] OSI CT BRAIN 2023-03-08 Pauline [facility] of 04:43:00 [place] [facility] CHEST ABDOMEN PELVIS 2022-12-31 [facility] ersity of 04:43:00 [place] MD [facility]enia [facility] REPORT OF PROCEDURE - ENDOSCOPY 2022-11-[address] [facility] URL 16:35:33 [facility] OSI CT CHEST 2022-10-14 PaulineCount Includes [facility] of 05:44:00 [place] MD [facility] OSI CT ABDOMEN 2022-10-14 PaulineCount Includes [facility] of 05:43:00 [place] MD [facility] [place] ERCP 2022-09-[address] [facility] 10:00:00 [facility] ENDOSCOPIC RETROGRADE 2022-09-06 Patricia, Sravani [facility] CHOLANGIOPANCREATOGRAPHY 08:49:00 [facility] (ENDOSCOPIC RETROGRADE CHOLANGIOPANCREATOGRAPHY) PROCEDURE W/ C-ARM 2022-09-[address] [facility] 08:49:00 [facility] ENDOSCOPIC RETROGRADE 2022-09-06 Paulanitaaniamadhavi, Sravani [facility] CHOLANGIOPANCREATOGRAPHY, WITH 08:49:00 [facility] STENT REMOVAL ENDOSCOPIC RETROGRADE 2022-09-06 Patricia, Sravani [facility] CHOLANGIOPANCREATOGRAPHY, WITH 08:49:00 M [facility] BALLOON DILATION ENDOSCOPIC RETROGRADE 2022-09-06 [facility]rav[facility] CHOLANGIOPANCREATOGRAPHY, WITH 08:49:00 M [facility] BILE DUCT STENT INSERTION ABORH, MANUAL 2022-09-[address] [facility] 05:57:00 [facility] CBC W/PLT COUNT & AUTO 2022-09-06 Salim, Juanito [facility] DIFFERENTIAL 04:14:00 [facility] BASIC METABOLIC PANEL 2022-09-06 Salim, Juanito [facility] 04:14:00 [facility] PROTHROMBIN TIME/INR 2022-09-06 Salim, [facility]ito [facility] 04:14:00 [facility] TYPE AND SCREEN, AUTOMATED 2022-09-06 Salim, [facility] 04:14:00 [facility] CBC W/PLT COUNT & AUTO 2022-09-[address] [facility] DIFFERENTIAL 04:14:00 [facility] CARBOHYDRATE ANTIGEN 19-9 (CA 2022-09-03 [address] [facility] 19-9) 10:37:[address] [facility] [address] CHEST WITH IV CONTRAST 2022-09-03 [facility] 03:05:00 [facility] US LIVER BIOPSY 2022-09-02 , [facility]ir [facility] 14:30:00 [facility] TISSUE EXAM 2022-09-02 Nadine, Munir [facility] 14:07:00 [facility] PT/APTT 2022-09-02 Nadine, Munir [facility] 09:29:00 [facility] CBC (HEMOGRAM ONLY) 2022-09-[address] [facility] 09:29:00 [facility] BASIC METABOLIC PANEL 2022-09-02 [facility] 09:29:00 [facility] HEPATIC FUNCTION PANEL 2022-09-[address] [facility] 09:11:00 [facility] REPORT OF PROCEDURE - ENDOSCOPY 2022-09-[address] [facility] URL 18:02:47 [facility] REPORT OF PROCEDURE - ENDOSCOPY 2022-09-[address] [facility] URL 17:59:13 [facility] [place] ERCP 2022-09-[address] [facility] 16:42:00 [facility] CYTOLOGY 2022-09-[address] [facility] 16:20:00 [facility] CYTOLOGY REQUEST 2022-09-[address] [facility] 16:20:00 [facility] TISSUE EXAM 2022-09-[address] [facility] 15:53:00 [facility] ESOPHAGOGASTRODUODENOSCOPY, WITH 2022-09-[address] [facility] ENDOSCOPIC US 15:24:00 [facility] ENDOSCOPIC RETROGRADE 2022-09-[address] [facility] CHOLANGIOPANCREATOGRAPHY 15:24:00 [facility] (ENDOSCOPIC RETROGRADE CHOLANGIOPANCREATOGRAPHY) PROCEDURE W/ C-ARM 2022-09-[address] [facility] 15:24:00 [facility] ERCP, WITH SPHINCTEROTOMY 2022-09-01 Jawrakan, Salmaan [facility] 15:24:00 [facility] ENDOSCOPIC RETROGRADE 2022-09-01 Jawrakan, Effie [facility] CHOLANGIOPANCREATOGRAPHY, WITH 15:24:00 [facility] BILE DUCT STENT INSERTION BASIC METABOLIC PANEL 2022-09-[address] [facility] 03:31:00 [facility] HEPATIC FUNCTION PANEL 2022-09-[address] [facility] 03:31:00 [facility] CBC W/PLT COUNT & AUTO 2022-09-[address] [facility] DIFFERENTIAL 03:31:00 [facility] PROTHROMBIN TIME/INR 2022-09-[address] 03:31:00 [facility] CARBOHYDRATE ANTIGEN 19-9 (CA 2022-09-[address] [facility] 19-9) 03:31:00 [facility] CBC W/PLT COUNT & AUTO 2022-09-[address] [facility] DIFFERENTIAL 03:31:00 [facility] PATHOLOGY OUTSIDE INTERPRETATION 2022-09-01 Radha Zambrano [facility] 00:00:00 [place] [facility] CT ABDOMEN/PELVIS WITH & WITHOUT 2022-08-[address] [facility] IV CONTRAST 16:13:00 [facility] SARS-COV2/RT-PCR (HS & REF 2022-08-[address] [facility]) 13:54:00 [facility] CBC W/PLT COUNT & AUTO 2022-08-[address] [facility] DIFFERENTIAL 13:52:00 [facility] COMPREHENSIVE METABOLIC PANEL 2022-08-31 Anabel Zambranohal Mazariegos [facility] 13:52:00 [facility] CBC W/PLT COUNT & AUTO 2022-08-31 Zambrano, Cassie Mazariegos [facility] DIFFERENTIAL 13:52:00 Medical Center US ABDOMEN COMPLETE 2022-08-[address] [facility] 22:50:00 [facility] MR ABDOMEN WITHOUT IV CONTRAST 2022-08-[address] [facility] MRCP 13:09:00 [facility] URINALYSIS WITH MICROSCOPIC IF 2022-08-[address] [facility] INDICATED 03:28:00 Medical Center URINALYSIS MICROSCOPIC 2022-08-[address] [facility] 03:28:00 [facility] CBC (HEMOGRAM ONLY) 2022-08-[address] [facility] 03:25:00 [facility] COMPREHENSIVE METABOLIC PANEL 2022-08-30 Mylene Berger [facility] 03:25:00 [facility] BLOOD CULTURE 2022-08-[address] [facility] 22:51:00 [facility] BLOOD CULTURE 2022-08-[address] [facility] 22:50:00 [facility] Plan of Care Planned Activity Planned Date Details Comments Source Future Scheduled 2023-09-[address] [facility] Test 00:00:00 Counseling and Screening [facility] (12+) [code = Tobacco Cessation Counseling and Screening (12+)] Future Scheduled 2023-07-11 COVID-19 Vaccination Uni versity of Test 15:40:28 (#1) [code = COVID-19 [facility] Vaccination (#1)] Cancer [address] [facility] Future Scheduled 2023-05-19 Influenza Vaccine (#1) [facility] 00:00:00 [code = Influenza Medical Ce nter Vaccine (#1)] Future Scheduled 2022-09-[address] [facility] Test 00:00:00 (12+) [code = DEPRESSION Med [facility] SCREENING (12+)] Future Scheduled 2019 SHINGLES VACCINES ([address] [facility] Test 00:00:00 2) [code = SHINGLES Medical Center VACCINES (1 of 2)] Future Scheduled 2004-01-05 Lipid panel (procedure) [facility] Test 00:00:00 [code = 32225420] Medical Ce nter Future Scheduled 1988-01-05 DTAP/TDAP/TD VACCINES ([address] [facility] Test 00:00:00 - Tdap) [code = Medical Cent er DTAP/TDAP/TD VACCINES (1 - Tdap)] Future Scheduled 1987 HEPATITIS C SCREENING [facility] 00:00:00 [code = HEPATITIS C Medical Center SCREENING] Future Scheduled 1984-01-[address] [facility] Test 00:00:00 virus screening Medical Cent er (procedure) [code = 119732004] Future Scheduled 1969 COVID-19 VACCINE (#1) [facility] 00:00:00 [code = COVID-19 VACCINE Med ical Center (#1)] Future Scheduled 1969 CT Colonography (combo) [facility] Test 00:00:00 [code = CT Colonography [facility] (combo)] Future Scheduled 1969 Screening for malignant [facility] Test 00:00:00 neoplasm of colon Medical Ce nter (procedure) [code = 779451093] Future Scheduled 1969 Screening for malignant [facility] Test 00:00:00 neoplasm of colon Medical Ce nter (procedure) [code = 453488579] Future Scheduled 1969 Screening for malignant [facility] Test 00:00:00 neoplasm of colon Medical Ce nter (procedure) [code = 744828757] Future Scheduled 1969 Screening for malignant [facility] Test 00:00:00 neoplasm of colon Medical Ce nter (procedure) [code = 005058094] Future Scheduled 1970 Sigmoidoscopy [code = [facility] Test 00:00:00 Sigmoidoscopy] Medical Cente r Encounters Start End Encounter Admission Attending Care Care Encounter Source Date/Time Date/Time Type Type Clinicians Facility Department ID 2023-07-10 2023-07-10 Education Wilma, 1.2.840.[id number] [facility] 00:00:00 00:00:00 Francie Acosta 01458.1.1 i ty of 3.412.2.7 Jethro .3.998698 .8 [facility] 2023-07-06 2023-07-06 [facility] 1.2.840.1 [id number] Univers 09:15:00 09:15:00 Encounter dorothy, Jaylin 91708.1.1 ity of 3.412.2.7 [place] .3.543170 MD Obrien8 [facility] 2023-07-06 2023[facility]07-[facility] 1.2.840.[id number] [facility] 09:15:00 09:15:00 Encounter Haley Licona Esthela 54844.1.1 ity of 3.412.2.7 [place] .3.576209 MD Obrien8 [facility] 2023-07-06 2023-07-06 Outpatient [facility] MDA [id number] [place] 09:15:00 09:15:00 JAYLIN DE LA CRUZ [facility] 2023-07-06 2023-07-06 Outpatient [facility] MDA [id number] [place] 09:15:00 09:15:00 DOROTHYJAYLIN [facility] 2023-07-06 2023[facility]07[facility].2.840.[id number] [facility] 08:15:00 09:14:00 Encounter 87562.1.1 it y of 3.412.2.7 [place] .3.234649 MD Obrien8 [facility] 2023-07-06 2023-07-06 [facility] [id number] [place] 08:15:00 09:14:00 [facility] 2023-07-06 2023-07-06 Orders Julián, 1.2.840.[id number] [facility] 00:00:00 00:00:00 Only Jen S 44337.1.1 ity of 3.412.2.7 [place] .3.924292 MD Obrien8 [facility] 2023-07-06 2023-07-06 Travel 1.2.840.1 1.2.372.548 [id number] Univers 00:00:00 00:00:00 36386.1.1 350.1.13.41 ity of 3.412.2.7 2.[place].7.3.698 [place] .3.427045 084.8 MD Ramos [facility] 2023-07-05 2023-07-05 Outpatient EL PUNEET MDA MDA [id number] 13:59:35 13:59:35 JAYLIN DE LA CRUZ 2023-07-05 2023-07-05 Follow-Up Charlie Hodges 1.2.840.[id number] [facility] 11:30:00 12:09:10 46920.1.1 ity of 3.412.2.7 [place] .3.897411 MD Ramos [facility] 2023-07-05 2023-07-05 Outpatient EL CHARLIE HODGES [facility] MDA [id number] 11:22:52 12:09:10 [facility] 2023-07-05 2023-07-05 Orders Charlie Hodges 1.2.840.1 [id number] Univers 00:00:00 00:00:00 Only 91021.1.1 ity of 3.412.2.7 [place] .3.833201 MD Ramos [facility] 2023-07-05 2023-07-05 Travel 1.2.840.1 1.2.640.681 [id number] Univers 00:00:00 00:00:00 92776.1.1 350.1.13.41 ity of 3.412.2.7 2.[place].7.3.698 [place] .3.300749 084.8 MD Ramos [facility] 2023-07-05 2023-07-05 Orders Shayne, 1.2.840.1 [id number] Univers 00:00:00 00:00:00 Only Arnie Clements 63497.1.1 ity of 3.412.2.7 [place] .3.103450 MD Ramos [facility] 2023-07-05 2023-07-05 Orders Puneet 1.2.840.1 [id number] Univers 00:00:00 00:00:00 Only Jaylin de la cruz 17151.1.1 ity of 3.412.2.7 [place] .3.920263 .8 [facility] 2023-07-04 2023-07-04 [facility] 1.2.840.[id number] [facility] 10:48:07 23:59:00 Encounter Jaylin de la cruz 71024.1.1 ity of 3.412.2.7 [place] .3.039342 .8 [facility] 2023-07-04 2023-07-04 Outpatient [facility] MDA MDA [id number] [place] 10:48:07 23:59:00 JAYLIN DE LA CRUZ kadiso n 2023-07-04 2023-07-04 [facility] 1.2.840.[id number] [facility] 18:35:00 21:00:00 Procedure Jaylin de la cruz 27218.1.1 ity of 3.412.2.7 [place] .3.160863 .8 [facility] 2023-07-04 2023-07-04 [facility] MDA MDA [id number] [place] 18:15:41 18:15:41 JAYLIN DE LA CRUZ derso n 2023-07-04 2023-07-04 [facility] MDA MDA [id number] [place] 10:48:07 10:48:07 JAYLIN DE LA CRUZ [id number] Sue kadiso n 2023-07-04 2023-07-04 [facility] 1.2.840.[id number] [facility] 08:00:00 10:47:00 Encounter Jaylin de la cruz 82058.1.1 ity of 3.412.2.7 [place] .3.334150 MD Obrien8 [facility] 2023-07-04 2023-07-04 Outpatient [facility] MDA MDA [id number] [place] 08:00:00 10:47:00 JAYLIN DE LA CRUZso n 2023-07-04 2023-07-04 [facility] 1.2.840.1 [id number] Univers 07:00:00 07:00:00 Encounter Alexi Smith 68619.1.1 ity of 3.412.2.7 [place] .3.529045 MD Ramos [facility] 2023-07-04 2023-07-04 [facility] 1.2.840.1 [id number] Univers 07:00:00 07:00:00 Encounter Jaylin de la cruz 18605.1.1 ity of 3.412.2.7 [place] .3.957912 MD Ramos [facility] 2023-07-04 2023-07-04 Outpatient [facility] MDA MDA [id number] [place] 07:00:00 07:00:00 JAYLIN DE LA CRUZ 2023-07-04 2023-07-04 Outpatient [facility] MDA MDA [id number] [place] 07:00:00 07:00:00 JAYLIN DE LA CRUZ 2023-07-04 2023-07-04 Orders Camejo, 1.2.840.1 [id number] Univers 00:00:00 00:00:00 Only Eliz 93149.1.1 ity of 3.412.2.7 [place] .3.265424 MD Ramos [facility] 2023-07-04 2023-07-04 Orders Shayne, 1.2.840.1 [id number] Univers 00:00:00 00:00:00 Only Arnie Clements 56763.1.1 ity of 3.412.2.7 [place] .3.902656 MD Ramos [facility] 2023-07-04 2023-07-04 Travel 1.2.840.1 1.2.805.558 [id number] Univers 00:00:00 00:00:00 80128.1.1 350.1.13.41 ity of 3.412.2.7 2.[place].7.3.698 [place] .3.676938 084.8 MD Ramos [facility] 2023-07-03 2023-07-03 Pratik Gallego, 1.2.840.1 [id number] Univers 00:00:00 00:00:00 Only Jen S 59562.1.1 ity of 3.412.2.7 [place] .3.784656 MD Obrien8 [facility] 2023-06-30 2023-06-30 Pratik Dee, 1.2.840.1 [id number] Univers 00:00:00 00:00:00 Only Annette Gonzalez 41416.1.1 it y of 3.412.2.7 [place] .3.677830 MD Obrien8 [facility] 2023-06-28 2023-06-28 Pratik Gallego, 1.2.840.1 [id number] Univers 00:00:00 00:00:00 Only Jen Castillo 50512.1.1 ity of 3.412.2.7 [place] .3.458609 MD Obrien8 [facility] 2023-06-20 2023-06-20 Documentat Julián, 1.2.840.1 [id number] Univers 00:00:00 00:00:00 ion Jen S 39581.1.1 ity of 3.412.2.7 [place] .3.561497 MD Obrien8 [facility] 2023-06-12 2023-06-12 Ancillary Pant, 1.2.840.1 [id number] Univers 22:40:00 22:45:00 Procedure Power 06302.1.1 it y of 3.412.2.7 [place] .3.430696 MD Obrien8 [facility] 2023-06-12 2023-06-12 Ancillary Pant, 1.2.840.1 [id number] Univers 22:35:00 22:40:00 Procedure Power 21761.1.1 it y of 3.412.2.7 [place] .3.384657 MD Obrien8 [facility] 2023-06-12 2023-06-12 Outpatient EL PANT, MDA MDA [id number] MD 22:35:11 22:35:11 POWER Monterrosoers o n 2023-06-12 2023-06-12 Ancillary Pant, 1.2.840.1 [id number] Univers 22:30:00 22:35:00 Procedure Power 63399.1.1 it y of 3.412.2.7 [place] .3.020055 MD Obrien8 [facility] 2023-06-12 2023-06-12 Ancillary Pant, 1.2.840.[id number] [facility] 22:25:00 22:30:00 Procedure Power 52728.1.1 it y of 3.412.2.7 [place] .3.302897 MD Obrien8 [facility] 2023-06-12 2023-06-12 Outpatient EL PANT, MDA MDA [id number] MD 22:28:04 22:28:04 POWER August o madhavi 2023-06-12 2023-06-12 Outpatient EL PANT, MDA MDA [id number] 22:28:01 22:28:01 POWER Monterrosoers o madhavi 2023-06-12 2023-06-12 Ancillary Pant, 1.2.840.1 [id number] Univers 22:20:00 22:25:00 Procedure Power 81081.1.1 it y of 3.412.2.7 [place] .3.439003 MD Obrien8 [facility] 2023-06-12 2023-06-12 Outpatient EL PANT, MDA MDA [id number] MD 22:24:02 22:24:02 POWER Monterrosoers o madhavi 2023-06-12 2023-06-12 Outpatient EL PANT, MDA MDA [id number] MD 22:23:58 22:23:58 POWER Monterrosoers o madhavi 2023-06-08 2023-06-08 [facility] Kera, 1.2.840.1 [id number] Univers 00:00:00 00:00:00 Only Tommie 12324.1.1 ity of 3.412.2.7 [place] .3.471608 MD Obrien8 [facility] 2023-06-07 2023-06-07 Telemedici Miri 1.2.840.[id number] [facility] 14:20:00 14:20:00 anabel Bowie 17789.1.1 ity of [place] 3.412.2.7 [place] .3.175494 MD Ramos [facility] 2023-06-07 2023-06-07 Outpatient KENDRA HOLLINGSWORTH MDA MDA [id number] 13:38:58 14:13:29 Mata BOWIE 2023-05-31 2023-05-31 Hospital Fisher Lobster, 1.2.840.[id number] [facility] 13:24:26 23:59:00 Encounter Trena 71002.1.1 it y of 3.412.2.7 [place] .3.437326 MD Obrien8 [facility] 2023-05-31 2023-05-31 Outpatient KENDRA SHIRLEY, [facility] MDA [id number] 13:24:26 23:59:00 TRENA hendrickson 2023-05-31 2023-05-31 Outpatient KENDRA SHIRLEY, [facility] [id number] 13:24:26 23:59:00 TRENA [id number] Mata hendrickson 2023-05-31 2023-05-31 Follow-Up Pant, 1.2.840.[id number] [facility] 13:00:00 13:14:32 Power 90337.1.1 ity of 3.412.2.7 [place] .3.397310 MD Obrien8 [facility] 2023-05-31 2023-05-31 Outpatient EL PAULINE, [facility] MDA [id number] MD 12:04:04 13:14:32 POWER hendrickson 2023-05-31 2023-05-31 Travel 1.2.840.1 1.2.018.[id number] [facility] 00:00:00 00:00:00 57504.1.1 350.1.13.41 ity of 3.412.2.7 2.[place]7.3.698 [place] .3.614293 084.8 MD Obrien8 [facility] 2023-05-30 2023-05-30 [facility] Pant, 1.2.840.1 [id number] Univers 11:48:14 23:59:00 Encounter Power 96875.1.1 it y of 3.412.2.7 [place] .3.426936 MD [facility] [place] 2023-05-30 2023-05-30 Outpatient PAULINE [facility] MDA [id number] MD 11:48:14 23:59:00 POWER hendrickson 2023-05-29 2023-05-29 Lab Jamaal Bauman 1.2.840.1 [id number] Univers 00:00:00 00:00:00 Radha Masters 37599.1.1 ity of n 3.412.2.7 [place] .3.797770 MD Ramos [facility] 2023-05-24 2023-05-24 [facility] Pauline, 1.2.840.1 [id number] Univers 20:00:00 20:05:00 Procedure Power 75598.1.1 it y of 3.412.2.7 [place] .3.726669 MD Ramos [facility] [place] 2023-05-24 2023-05-24 Outpatient [facility] MDA [id number] 09:08:51 09:08:51 POWER hendrickson 2023-05-24 2023-05-24 Orders Carmelita Ko 1.2.840.1 [id number] Univers 00:00:00 00:00:00 Only 15100.1.1 ity of 3.412.2.7 [place] .3.901402 MD Ramos [facility] [place] 2023-05-23 2023-05-23 Follow-Up Carmelita Ko 1.2.840.1 [id number] Univers 13:00:00 13:52:34 Power Carpenter 22110.1.1 ity of 3.412.2.7 [place] .3.024951 MD [facility] [place] 2023-05-23 2023-05-23 Outpatient CARMELITA GARCIA [facility] [id number] [place] 12:53:31 13:52:34 Mata o n 2023-05-23 2023-05-23 Travel 1.2.840.1 [id number] [facility] 00:00:00 00:00:00 65035.1.1 350.1.13.41 ity of 3.412.2.7 [place].698 [place] .3.451808 084.8 MD Ramos [facility] 2023-05-18 2023-05-18 [facility] Geronimo Koin 1.2.840.[id number] [facility] 06:35:00 09:00:00 Procedure 56441.1.1 it y of 3.412.2.7 [place] .3.277696 MD Ramos [facility] 2023-05-18 2023-05-18 Outpatient CARMELITA GARCIA [facility] [id number] [place] 06:34:13 06:34:13 [facility]ata [facility] 2023-05-18 2023-05-18 Travel 1.2.840.1 1.2.091.[id number] [facility] 00:00:00 00:00:00 92660.1.1 350.1.13.41 ity of 3.412.2.7 2.[place]3.698 [place] .3.920825 084.8 MD [facility] 2023-05-17 2023-05-17 [facility] Carmelita Ko 1.2.840.1 [id number] [facility] 14:00:00 23:59:00 Encounter 05986.1.1 it y of 3.412.2.7 [place] .3.339196 MD Obrien8 [facility] 2023-05-17 2023-05-17 Outpatient CARMELITA GARCIA [facility] [id number] [place] 14:00:00 23:59:00 Mata o madhavi 2023-05-17 2023-05-17 [facility] Geronimo Koin 1.2.840.1 [id number] Univers 13:30:00 16:22:43 Visit 23020.1.1 ity of 3.412.2.7 [place] .3.158197 MD Ramos [facility] 2023-05-17 2023-05-17 Outpatient [facility] [id number] MD 13:14:31 16:22:43 [facility] 2023-05-17 2023-05-17 Travel 1.2.840.1 1.2.642.714 [id number] Univers 00:00:00 00:00:00 56000.1.1 350.1.13.41 ity of 3.412.2.7 [place].7.3.698 [place] .3.622053 084.8 MD Ramos [facility] 2023-05-15 2023-05-15 Outpatient [facility] [id number] MD 15:05:12 15:05:15 [facility] 2023-05-15 2023-05-15 NPR 1.2.840.1 [id number] Univers 14:00:00 15:05:15 84740.1.1 ity of 3.412.2.7 [place] .3.841724 MD Ramos [facility] 2023-05-15 2023-05-15 Travel 1.2.840.1 1.2.543.200 [id number] Univers 00:00:00 00:00:00 24224.1.1 350.1.13.41 ity of 3.412.2.7 [place].3.698 [place] .3.323964 084.8 MD Ramos [facility] 2023-05-15 2023-05-15 Orders Carmelita Ko 1.2.840.1 [id number] Univers 00:00:00 00:00:00 Only 84230.1.1 ity of 3.412.2.7 [place] .3.588797 MD Ramos [facility] 2023-05-08 2023-05-08 Travel 1.2.840.1 1.2.217.757 [id number] Univers 00:00:00 00:00:00 65046.1.1 350.1.13.41 ity of 3.412.2.7 2.2.7.3.698 Brennan richard .3.742139 084.8 .8 [facility] 2022-08-29 2022-09-07 Inpatient ER FILIBERTO GAYTAN Gastro [id number] [facility] 19:03:00 14:17:00 VANESSA 2022-08-29 2022-09-07 [facility] Vanessa Gaytan [facility] [id number] [facility] 19:03:00 14:17:00 [facility] darling 2022-09-06 2022-09-[address] [facility] [id number] [facility] 09:30:00 11:00:00 [facility] 2022-09-06 2022-09-[address] [facility] [id number] [facility] 08:57:00 10:16:00 Event Adiel [facility] 2022-09-01 2022-09-01 Anest[address] Dannie Magdy [facility] [id number] [facility] 15:24:00 16:52:00 Event Brenden Black [facility] 2022-09-01 2022-09-01 Surgery Jetrakan, [facility] [id number] 14:54:00 16:24:00 Rogeriomosue [facility] 2022-08-30 2022-08-30 Travel [facility] [id number] [facility] 00:[facility] 00:[facility]:00 [facility] Results Test Description Test Time Test Comments Results Result Comments Source aPTT 2023-07-06 17:28:46 Test Item Value Reference Range Interpretation Comme nts aPTT (test code = 32.3 See_Comment [Automate d message] The 17894-0) system which ge nerated this result transmit bell reference range: 24.1 - 3 5.5 second(s). The reference range was not u sed to interpret this result as normal/abnormal . STEVENSON (test code = STEVENSON) This lab cannot be scheduled at the following locations due to collection/proccessing restrictions: [facility] and [facility]. [facility] StationProthrombin Time with [id number] 17:28:45 Test Item Value Reference Range Interpretation Comments PT (test code = 14.6 See_Comment H [Automated 5902-2) message] The system which generated this result transmitted reference range : 11.9 - 14.5 second(s). The reference range was not used to interpret this result as normal/abnormal . INR (test code = 1.15 0.87-1.12 H 6301-6) STEVENSON (test code = STEVENSON) This lab cannot be scheduled at the following locations due to collection/procc essing restrictions: [facility] and [facility]. Lab Interpretation Abnormal (test code = 23941-5) [facility] StationLDH2023-10-19 17:23:47 Test Item Value Reference Range Interpretation Comments LDH (test code = 130 U/L 135-225 L Results gre ater than 56505-7) 1651 U/L may no t be reliable due to matrix effect w ith extended diluti on as it exceeds the psychometrician's recommended portillo it. Caution should be exercised when interpreting linares ch values and done in conjunction wit h clinical contex t. Lab Interpretation (test Abnormal code = 70657-3) [facility] StationFractionated [id number] 17:20:35 Test Item Value Reference Range Interpretation Comments Bili Total (test 0.6 mg/dL <=1.2 Indocyanine Green (ICG) code = 1974-) may cause fal sely elevated biliru bin results. Total and direct bilirubin must not be measured from s amples containing indo cyanine green. False el evation of total bilirubin can be seen in patient s with IgG concentrations above 28 g/L. Bili Direct (test 0.2 mg/dL <=0.3 Indocyanin e Green (ICG) code = 1967-) may cause fal sely elevated biliru bin results. Total and direct bilirubin must not be measured from s amples containing indo cyanine green. Bili Indirect (test 0.4 mg/dL 0.0-0.9 code = 1970-1) [facility] StationUric [id number] 17:20:34 Test Item Value Reference Range Interpretation Comments Uric Acid (test code = 3084-1) 3.2 mg/dL 3.4-7.0 L Lab Interpretation (test code = Abnormal 44273-5) [facility] StationTotal [id number] 17:20:33 Test Item Value Reference Range Interpretation Comments Total Protein (test code = 2885-2) 7.6 g/dL 6.4-8.3 [facility] StationPhosphorus [id number] 17:20:32 Test Item Value Reference Range Interpretation Comments Phosphorus (test code = 2777-1) 4.0 mg/dL 2.5-4.5 [facility] StationLipase [id number] 17:20:31 Test Item Value Reference Range Interpretation Comments Lipase Lvl (test code = 3040-3) 10 U/L 13-60 L Lab Interpretation (test code = Abnormal 45525-7) [facility] StationCalcium [id number] 17:20:30 Test Item Value Reference Range Interpretation Comments Calcium Lvl (test code = 63572-5) 9.7 mg/dL 8.4-10.2 [facility] StationALT2023-10-19 17:20:29 Test Item Value Reference Range Interpretation Comments ALT (test code = 1742-6) 26 U/L <=41 [facility] StationBUN2023-10-19 17:20:28 Test Item Value Reference Range Interpretation Comments BUN (test code = 3094-0) 11 mg/dL 6-23 [facility] StationElectrolyte [id number] 17:20:27 Test Item Value Reference Range Interpretation Comments Sodium Lvl (test code = 133 See_Comment L [Au tomated message] 4676-2) The system Helios generated this result transmitted ref erence range: 136 - 14 5 mEq/L. The refe rence range was not u sed to interpret this result as normal/abnor mal. Potassium Lvl (test code 5.4 See_Comment H [A utomated message] = 0673-3) The system Helios generated this result transmitted ref erence range: 3.5 - 5. 1 mEq/L. The refe rence range was not u sed to interpret this result as normal/abnor mal. Chloride (test code = 95 See_Comment L [Auto mated message] ) The system Helios generated this result transmitted ref erence range: 98 - 107 mEq/L. The refe rence range was not u sed to interpret this result as normal/abnor mal. CO2 (test code = 2028-05) 34 See_Comment H [A utomated message] The system Helios generated this result transmitted ref erence range: 22 - 29 mEq/L. The reference r malick was not used to interpret this result as normal/abnor mal. Anion Gap (test code = 4 See_Comment [Aut omated message] ) The system Helios generated this result transmitted ref erence range: 4 - 14 m Eq/L. The reference r malick was not used to interpret this result as normal/abnor mal. Lab Interpretation (test Abnormal code = 50343-6) [facility] StationGlucose [id number] 17:20:26 Test Item Value Reference Range Interpretation Comments Glucose Level (test code 131 mg/dL 70-99 H Eff ective 04/13/16, = 2345-7) the glucose reference inter vals have been updat ed based on Americ an Diabetes Associ ation guidelines (Standards of Medical Care in Diabetes 2016. Diabetes Care 2 016; 39: S13-S22).Fa sting blood glucose:Normal: 70-99 mg/dLImpa ired fasting glucose (increased risk for diabetes or pre-diabetes): 100-125 mg/dLDiabetes mellitus: >/=12 6 mg/dL Random bl ood glucose:Normal: 70-199 mg/dLNot e: Random glucose >100 mg/dL is associ ated with increased risk for diabetes Lab Interpretation (test Abnormal code = 21798-3) [facility] StationGlomerular Filtration Rate 2023-07-06 17:20:24 Test Item Value Reference Range Interpretation Comments eGFR (test code = 109 See_Comment The eGFRcr is calculated with 72633-0) the 2020 CKD-EP I creatinine equation using creatinine, patient's age, and sex for adults 18 years of age and older. Other fa ctors, especially musc le mass, may affect accuracy and need to be considered.A ccording to the Kidney Dise ase: Improving Global Outcomes (KDIGO) CKD Work Group 2012 Clinical Practice Guidel ine, chronic kidney disease (CKD) is defined as the abnormalities of kidney struc ture or function, prese nt for more than 3 months, with implications fo r health. CKD should be class ified by cause, GFR catrina gory, and albuminuria cat egory. KDIGO guidelines prov ally the following GFR c ategoriesStage Description GFR mL/min/1.73 m2G1* Normal or high >= 90G2* Mildly decrease d 60-89G3a Mildly to moder ately decreased 45-59 G3b Moderately to severely dec reased 30-44G4 Severely decrea sed 15-29G5 Kidney failure <15*In the absence of evid ence of kidney damage, neither G1 nor G2 fulfill criteri a for CKD. [Automated mess age] The system which [employer] nerated this result transmit bell reference range: >=60 mL/ min/1.73 sq. m. The referenc e range was not used to int erpret this result as nighat l/abnormal. [facility] StationMagnesium [id number] 17:20:23 Test Item Value Reference Range Interpretation Comments Magnesium (test code = 64416-4) 2.2 mg/dL 1.6-2.6 [facility] StationAmylase [id number] 17:20:22 Test Item Value Reference Range Interpretation Comments Amylase Lvl (test code = 1798-8) 24 U/L 28-100 L Lab Interpretation (test code = Abnormal 92462-6) [facility] StationAlkaline [id number] 17:20:21 Test Item Value Reference Range Interpretation Comments Alk Phos (test code = 6768-6) 161 U/L 40-129 H Lab Interpretation (test code = Abnormal 41708-9) [facility] StationAlbumin [id number] 17:20:20 Test Item Value Reference Range Interpretation Comments Albumin Lvl (test code 3.7 See_Comment [Aut omated message] The = 175-) system which [employer] nerated this result tra nsmitted reference range : 3.5 - 5.2 gm/dL. The refe rence range was not used to interpret this result as normal/abnormal . [facility] StationAspartate Aminotransferase 2023-07-06 17:20:19 Test Item Value Reference Range Interpretation Comments AST (test code = 1920-8) 23 U/L <=40 [facility].Serum [id number] 17:20:17 Test Item Value Reference Range Interpretation Comments Creatinine (test code = 2160-0) 0.70 mg/dL 0.67-1.17 [facility] StationHBV DNA [id number] 17:03:01 Test Item Value Reference Range Interpretation Comments HBV DNA [facility] Undetected Undetected IU/mL Result in log IU/mL is (test code = Undetected. 91845-4) ----ADDITIO NAL INFORMATION---- ----The quantif ication range of this a ssay is 10 to1,000,000,000 IU/mL (1.00 log to 9. 00 log IU/mL). Testing was performed using the yoselin HBV test ([employer] with the yoselin 6800 System. Test Pe rformed by:[place] [id number] Director: Franco Saxena M.D. Ph. D.; CLIA# [id number] [facility] StationDifferential2023-10-19 16:40:27 Test Item Value Reference Range Interpretation Comments Neutrophil % (test code = 80.3 % 43.2-72.7 H 770-8) Lymphocyte % (test code = 10.6 % 16.8-46.2 L 736-9) Monocyte % (test code = 8.3 % 5.1-12.5 5905-5) Eosinophil % (test code = 0.2 % 0.4-6.3 L 713-8) Basophil % (test code = 0.3 % 0.2-1.4 706-2) IGRE % (test code = 0.3 % 0.1-1.5 IGRE % c ount 42341-0) includes Metamyelocytes, Myelocytes, and Promyelocytes. Neutrophil Abs (test code 7.85 K/uL 1.95-7.25 H = 751-8) Lymphocyte Abs (test code 1.04 K/uL 1.01-3.24 = 731-0) Monocyte Abs (test code = 0.81 K/uL 0.24-0.85 742-7) Eosinophil Abs (test code 0.02 K/uL 0.02-0.50 = 711-2) Basophil Abs (test code = 0.03 K/uL 0.02-0.09 704-7) IG Abs (test code = 0.03 K/uL 0.01-0.12 84535-8) Lab Interpretation (test Abnormal code = 35233-4) [facility] Cancer Astatula.[id number] 16:40:19 Test Item Value Reference Range Interpretation Comments WBC (test code = 9.8 K/uL 4.1-10.5 6690-2) RBC (test code = 789-8) 3.85 See_Comment L [Au tomated message] The system Helios generated this result transmitted ref erence range: 4.30 - 6 .04 M/uL. The refer ence range was not u sed to interpret this result as normal/abnor mal. Hgb (test code = 718-7) 9.6 See_Comment L [Au tomated message] The system Helios generated this result transmitted ref erence range: 13.3 - 1 7.4 gm/dL. The refe rence range was not u sed to interpret this result as normal/abnor mal. Hct (test code = 31.4 % 39.5-51.8 L 4544-3) MCV (test code = 787-2) 82 fL 82-99 MCH (test code = 785-6) 24.9 pg 26.6-33.2 L MCHC (test code = 30.6 See_Comment L [Automate d message] 786-4) The system Helios generated this result transmitted ref erence range: 31.1 - 3 5.2 gm/dL. The refe rence range was not u sed to interpret this result as normal/abnor mal. RDW-SD (test code = 46.9 fL 37.5-49.7 93290-5) RDW-CV (test code = 15.8 % 11.6-15.5 H 788-0) Platelet count (test 257 K/uL 160-397 code = 777-3) MPV (test code = 10.0 fL 9.1-12.6 83257-4) INRBC (test code = 0.0 See_Comment The INRBC (instrument 23152-4) NRBC) value ref lects the enumeration of nucleated red b lood cells contained in a 200uL sampleof whole blood analyzed by the instrument. Thi s value maydiffer from the NRBC value repo rted in a manual differential,wh ich is based on a 100 cell differential. [Automated mess age] The system whic h generated this result transmitted ref erence range: 0.0 - 0. 1 /100 WBC. The refere nce range was not u sed to interpret this result as normal/abnor mal. Lab Interpretation Abnormal (test code = 23232-4) [facility] Cancer AstatulaHIV 1/2 Antigen/Antibody, Fourth Gen [id number] 04:57:48 Test Item Value Reference Range Interpretation Comments HIV Ag/Ab, NON-REACTIVE NON-REACTIVE HIV-1 antigen a nd 4TH Gen (test HIV-1/HIV-2 an tibodies were code = [place] [address]-7) laboratory evid ence of HIVinfection. P LEASE NOTE: This informatio n has been disclosed toyou from records whose confident iality may beprotected by state law. If your state requ ires suchprotection, then the state law prohi bits you frommaking any further disclosure of t he informationwith out the specific writte n consent of the personto om it pertains, or as otherwise permitted by ruby hopson.A general authorization f or the release of medi davide orother information is NOT sufficient for this purpose. For additional information please refer [email or web address] [email or web address]/faq /AJH053(This link is being p rovided for informational/e ducational purposes only.) The performance of this assay has not been clinicallyvalid ated in patients less t pineda 2 years old. Lab test p erformed by:[facility] : [employer] [id number] [place] [address]FALCZ L MAHIN LARRY MD,PHD. [facility] Cancer AstatulaEchocardiogram 2D Complete 2023-07-04 21:16:41 Test Item Value Reference Range Interpretation Comments EF (test code = 60 [id number]) PXN (test code Sondra Joyner MD - = PXN) 07/04/2023 Echocardiographic ReportInterpretation SummaryA complete two-dimensional transthoracic echocardiogram was performed (2D, M-mode, Spectral and color Doppler). The study was technically difficult. There is no comparison study available.Left ventricular systolic function is normal.LV ejection fraction calculated using the bi-plane method of disks is 60 %.The right ventricle is normal in size and function.Right ventricular systolic pressure is normal.There is no pericardial effusion.Left Ventricle:The left ventricle is grossly normal size. LV ejection fraction calculated using the bi-plane method of disks is 60 %. Left ventricular systolic function is normal.I WMSI = 1.00 % Normal = 100 Normal GLS Segments SizeX - Cannot 2 - 1-2 smallInterpret 1 - Normal Hypokinetic 3 - Akinetic 4 - Dyskinetic3-5 moderate5 - Aneurysmal 6-14 large 15-16 diffuseCardiac Mechanics/Speckle Tracking Imaging:Normal global longitudinal peak systolic value. Strain Imaging was performed; GLPS avg = -20.5%.Diastology:Indeterminat e.Right Ventricle:The right ventricle is normal in size and function.Atria:Atria are normal in size.Mitral Valve:The mitral valve leaflets appear thickened, but open well.Tricuspid Valve:The tricuspid valve is not well visualized, but is grossly normal. There is trace tricuspid regurgitation. Right ventricular systolic pressure is normal.Aortic Valve:The aortic valve is not well visualized. The aortic valve opens well. There is trace aortic regurgitation.Pulmonic Valve:The pulmonic valve is not well visualized.Great Vessels:Aortic sinuses of Valsalva are borderline dilated. The aortic root is not well visualized. The inferior vena cava demonstrates normal size and normal respiratory variation.Pericardium/Pleural: There is no pericardial effusion.MMode/2D Measurements IVSd: 0.98 cm LVIDd: 5.0 cm LVPWd: 1.0 cmAo root diam: 3.5 cm LVOT diam: 2.5 cmAo root area: 9.7 cm2 LVOT area: 4.7 cm2EDV(MOD-A4C): 131.1 ml EDV(MOD-A2C): 151.6 mlESV(MOD-A4C): 49.2 ml ESV(MOD-A2C): 61.0 mlEF(MOD-A4C): 62.4 % EF(MOD-A2C): 59.8 % LAV(MOD-A2C): 84.9 mlEDV(MOD-bp): 142.4 ml LAV(MOD-A4C): 27.4 mlESV(MOD-bp): 57.2 ml LAV(MOD-bp): 48.8 mlEF(MOD-bp): 59.9 % LAV(MOD-bp) Indexed: 27.2 ml/m2EDV (MOD-bp) Index: 79.4 ml/m2 ESV (MOD-bp) Index: 31.9 ml/m2RWT: 0.41 cm TAPSE (>1.6): 3.4 cmDoppler Measurements MV E max selene: 52.0 cm/sec MV V2 max: 148.0 cm/secMV A max selene: 63.7 cm/sec MV max P.8 mmHgMV E/A: 0.82 MV V2 mean: 83.1 cm/sec MV mean P.2 mmHg MV V2 VTI: 29.0 cm MVA(VTI): 2.7 cm2MV dec time: 0.16 sec Ao V2 max: 128.3 cm/sec Ao max P.6 mmHg Ao V2 mean: 79.9 cm/sec Ao mean P.0 mmHg Ao V2 VTI: 19.4 cm LEATHA(I,D): 4.1 cm2 LEATHA(V,D): 3.9 cm2AI dec slope: 305.7 cm/sec2 LV V1 max P.5 mmHg LV V1 mean P.8 mmHg LV V1 max: 106.4 cm/sec LV V1 mean: 60.7 cm/sec LV V1 VTI: 16.9 cmSV(LVOT): 79.8 ml TR max selene: 223.2 cm/sec TR max P.9 mmHgAVA Index (I,D): 2.3 LEATHA Index (V,D): 2.2Dimensionless Index: 0.83 [facility] StationCA [id number] 17:14:20 Test Item Value Reference Interpretation Comments Range CA 19-9 (test code 50753.0 U/mL <=35.0 H Results g reater than 9500 = 5171) U/mL may not be reliable due to matrix e ffect with extended diluti on as it exceeds the man ufacturer's recommended portillo it. Caution should be exerc ised when interpreting linares ch values and done in con junction with clinical c ontext. This test is measure d by electrochemilum inescence immunoassay on [employer] Yoselin immunoassay isabel lyzers. Results obtaine d in different metho ds are not interchangeable . Lab Interpretation Abnormal (test code = 84362-5) [facility] StationHepatitis C Virus Antibody 2023-07-04 15:25:47 Test Item Value Reference Range Interpretation Comments HCVAb. (test Non Reactive Non Reactive Antibody detect ion in the code = 5762) immunocompromis ed and immunosuppresse d population may be delayed or absent entirely. There fore serial testing, correl ation with other clinical findings, and supplementa l testing (if available) should be taken into cons ideration when interpreti ng the results. [facility] StationHepatitis B Surface [id number] 15:24:51 Test Item Value Reference Range Interpretation Comments HBsAg. (test code = 5747) Non Reactive Non Reactive [facility] StationTSH2023-10-17 14:23:22 Test Item Value Reference Range Interpretation Comments TSH (test code = 1.75 See_Comment [Automated message] The 55920-4) system which ge nerated this result transmit bell reference range : 0.27 - 4.20 mcunit/mL. The reference range was not used to interpr et this result as nighat l/abnormal. [facility] StationCEA2023-10-17 14:23:19 Test Item Value Reference Interpretation Comments Range CEA (test code = 11.2 ng/mL <=3.8 H Reference R anges:Smoker: 0.0 2038-) - 5.5Non-Smoker : 0.0 - 3.8This test is measured by electrochemilum inescence immunoassay on [employer] Yoselin immunoassay isabel lyzers. Results obtaine d in different metho ds are not interchangeable . Lab Interpretation Abnormal (test code = 71774-1) [facility] StationUrinalysis Microscopic Exam 2023-07-04 14:11:38 Test Item Value Reference Range Interpretation Comments UA WBC (test code = See_Comment Some rep orting 43926-7) parameters with in the Urinalysis test have changed due to the implementation of new instrumentation in the [facility] greater sensiti vity of measurement. Urinalysis resu lts reported by the [facility] enters using existing instrumentation , as well as Urinaly sis testing perform ed manually or by backup methodology at the [facility] khadijah l remain relative ly unchanged. New reporting cristal eters and units will not be reported for al l campuses. [Auto mated message] The sy stem which generated this result transmit bell reference range : 0 - 2 /HPF. The refer ence range was not u sed to interpret this result as normal/abnor mal. UA RBC (test code = See_Comment [Automa bell message] 80333-3) The system Helios generated this result transmitted ref erence range: 0 - 2 /H PF. The reference range was not used to int erpret this result as normal/abnormal . UA Mucous (test code = TRACE Not Seen-Trace 55819-7) /HPF UA Bacteria (test code 1+ NOT SEEN /HPF A = 80533-3) UA Squam Epi (test NOT SEEN None-Occasional code = 23105-7) /HPF Lab Interpretation Abnormal (test code = 84929-0) [facility] StationUrinalysis w/Microscopic if [id number] 13:55:12 Test Item Value Reference Range Interpretation Comments UA Color (test code = 24856-6) Yellow Straw-Yellow UA Appear (test code = 33480-7) Hazy Clear A UA Glucose (test code = 5792-7) NEG NEG mg/dL UA Bili (test code = 5770-3) NEG NEG UA Ketones (test code = 5797-6) Trace NEG mg/dL A UA Spec Grav (test code = 5810-7) 1.018 1.003-1.035 UA Blood (test code = 5794-3) NEG NEG UA pH (test code = 5803-2) 6.0 5.0-9.0 UA Protein (test code = 5804-0) NEG NEG mg/dL UA Urobilinogen (test code = 5818-0) POS NEG A UA Nitrite (test code = 5802-4) NEG NEG UA Leuk Est (test code = 5799-2) NEG NEG Lab Interpretation (test code = Abnormal 34926-8) [facility] StationPathology Outside Interpretation 2023-05-31 14:43:38 Test Item Value Reference Range Interpretation Comments Materials Received (test x9shjHVgFKHvsXLpSjPl code = 9973) GOCnOISjz0zbXIAeqTXc ZzEwMzNcZnRuYmpcdWMx GGOpWcIgy7fak091pJIz a6kcLOTnPeC9cSClWFSb wIQbB574CJTsVQkku1gx b1QzIXLtaYCyd7U5ETRC xbyvoIm6yPwpO84gu5R7 HlchP5gnGOQqKERqD1Lu GT9bLMOkAho6RTU7DHK4 LDDsEJCtQ9XbTB5lQFVy gBYbGSo7l7mzcQykAUXu VMV9u1vkQNrrdmUaWM6n su9juGj8c0cojiHyVMDo NRYglOGMRXCmY1VtrCce Wm9jcRs9wNvnNbnxPSI7 Lup7EQ6twf70ylr3wCem UWFhfiggXrY7XMkcSPWt cvouMZw7POymDQOdeJxf MFxtYXJncjcyMFxtYXJn hAO2DCYfkQErT7HeCBJj YVlzXCIaxnb7PyBzNt4i eYHweObpLAfer3qcw3jm rPSmTlp7TAWtHmExNrwm EYitt9Cop4utMMIniq0t CWL1nMMeqZtyb1L4gAHx PCEqdGEhcuAnHZNrof12 gDFlcCTmxCWqkb7eeoKf hOBxmADsKNY2dPUqduWb ZWGbvCQdUCAgFK5llQVk CCPlhU8bplpeSUTrCoKy dfgbDSTdbHitpgDxIa4u hMcsPYA8JJmdS8vxlM4y RaE0REfvW7nvsM1lTXu0 XPrxfSC4KHSsfX1aUM2z fklpo3ghOrIpRM8rrnlg s2wbBfUbCZ3ddyf8b4hv LMR1UZuiMNJeBtG1wjW2 NDBcaGVhZGVyeTcyMFxm n147IXW2NqGqHCWvs7Kw M8WlgPudJ75ixRnaO17r UWNxzLrahE6hdLuavA5q OhElTuAeIHd9wp11UKh6 ckcgrKudIRy6cxXfDVEv DRC8AEAnyOWxOGGyS6u8 btRpIUTzBHD4JUQufUQq RMMtQ7a8eoPmOYN4FUq7 cnBhZGRmdDNcdHJwYWRk YjBcdHJwYWRkZmIzXHRy zYPjsRExxUWhvR3pwGyi CPNzsCQbxI3gUGH5TIUc cmgzMjBcdHJoZHJcbHRy am67LHZyfeShsIUnqXsc aBBqKJR7PQUcNEWrXATw SLU5VYHsQmQhffVkVRme bGJyZHJiXGJyZHJzXGJy TWJ9SAUhDhUqirJbXRyt bGJyZHJsXGJyZHJzXGJy APO5HYZxYcZxnnIyJDef bGJyZHJyXGJyZHJzXGJy FFN3BFDsLoBmwlSeCXxb bHBhZHQxMFxjbHBhZGZ0 F1kbuSBtMEYaFUxnzZCp CTUcI6jhgSZuBEplSYNd cGFkZmwzXGNscGFkYjBc O2syHECgRmQmK9TszQg5 MDAwXGNsdmVydGFsdFxj nWEoVRD5IGTrLXAzMWSa SKS7XOVvNkDmvuYtGLgl bGJyZHJiXGJyZHJzXGJy NES6BYSnBvYwceJdEUii bGJyZHJsXGJyZHJzXGJy PPW3HZBgVfDusxUrSSlr bGJyZHJyXGJyZHJzXGJy HDT8WOOmGkTejvDfZAul bHBhZHQxMFxjbHBhZGZ0 I3ffsSOtSBLxVDzeqCAn PLJnC1qbzTMcLUyeNQIi cGFkZmwzXGNscGFkYjBc M7brWIHbGlTzA7BhkZj7 NjAwXGNsdmVydGFsdFxj hVRpYOP8TRDjJUYbJZMl OKH8NHOrEdLubjTgIPlk bGJyZHJiXGJyZHJzXGJy PYG9BLFqEoRidoAwSOjj bGJyZHJsXGJyZHJzXGJy HLS6LPMyIdTgnsJbTIft bGJyZHJyXGJyZHJzXGJy BJO3KMNwLlKtxtFeBPkc bHBhZHQxMFxjbHBhZGZ0 O6npnBOuGRTgDTczyTVo FNEuN4mzgQQkBDurJOFd cGFkZmwzXGNscGFkYjBc Z0jvUESiJjZvU6AqfIo2 KgPnOSTmqmSoiK90Itze x4TaOHByCGE1AScrYKtx bFxwbGFpblxmMVxmczIw BXaiunqoGTFnIJyoS7ee CqCiZTOntSxyJFyyu9Ao XGYxXGNmMlxmczIwXGIg ZXXxOCOvoV3xRfowJ5Bj vE2pXQrkXdbbJ9pdBADm w7BdjU3jQVknePSpjlco MVxmczIwXGxhbmcxMDMz SYvgO7otMpBzANGzxZvg KYltn1NhGGTwXXXpXruc sfEiAZt3jqDdZTPxaSok sFUiCShrncVbnMgei2Qk xsRjnBpvREBqNWd0qpUy gzydsWq1eGVgwCveJXKw uXsjtV1yHjDzTsPzDAcb bGFpblxmMVxmczIwXGxh osmyRFElFAntR4ntJtQj QFCygSbsQJcje0JdUMOk MIHvFrklqpGtWIKoE62c bGVjdGVkXHBsYWluXGYx XGZzMjBcbGFuZzEwMzNc aGljaFxmMVxkYmNoXGYx EOmhC6xhFwZlA7QkDHAg NzEnzMFqG5vjP0CblCpn YXJkXGludGJsXHNzcGFy WOM6xOOwxzDuxHHimJDb GEPrNFxcYAG4tXQdznwf nDGfdfiiBEdimmK1HMJx YWluXGYxXGZzMjBcbGFu ZzEwMzNcaGljaFxmMVxk SsVzPJYpYFqqX3jwHgWb F5IaKGGoYhKmXoHDLPRq aXZlZFxwbGFpblxmMVxm czIwXGxhbmcxMDMzXGhp T2ciDlNfATXfuPgmIFeo u6SkIRCoKWPlNidhzlGz IYw9erIxFASrrNygwG11 Sazzfe74UHZjg7bzSGHr V2UydFViXOBijGNjRJix MDhcdHJwYWRkZmwzXHRy cGFkZHIxMDhcdHJwYWRk ZnIzXHRycGFkZHQwXHRy oDOkZQP2R0j4hnMeVOSh ULs9onRvCLNnWaNgmZEi NUR1CKp8HpzccyD8jZOj H1v7OlvpgjWgVMwmpDDg dr21WICtbzMxmCRsvKgh xIZyFIN3VHLfNDCpPKQm YAV7PIIkAdAxrtLmQIkt bGJyZHJiXGJyZHJzXGJy RSS6THCxPjPjlrDzQKjy bGJyZHJsXGJyZHJzXGJy EZI2QVPhAzPvgyOrKZtr bGJyZHJyXGJyZHJzXGJy ZHR7SQAtGeCfocYjEAvi bHBhZHQxMFxjbHBhZGZ0 U7xftUEcMYScNTiuoIQd TYJzX0tycBSkQVoeVNDc cGFkZmwzXGNscGFkYjBc Z7bxBKAbCoOsR3HhlOg8 MDAwXGNsdmVydGFsdFxj xRUkKSC9ECYjWWNyJTQv XGG5KJGjPmEcsmJoVZjo bGJyZHJiXGJyZHJzXGJy OHI3WCCeKgHvctCoUIyu bGJyZHJsXGJyZHJzXGJy SWD1ZYQeFjQnrrItEAlb bGJyZHJyXGJyZHJzXGJy XRK0HSNiPqGzocRmEBdt bHBhZHQxMFxjbHBhZGZ0 P8nwmVAmNYWqTVjuzUEs OQXpK0twsASwQGopGFMe cGFkZmwzXGNscGFkYjBc L1qtWIYaAiZyW2OgnDp9 NjAwXGNsdmVydGFsdFxj dYJuKET3ZIWsECZbCCDn TWZ8SXKlNcNugwGoWOyu bGJyZHJiXGJyZHJzXGJy MQE1HUTjUtQcjzHtXCte bGJyZHJsXGJyZHJzXGJy ZJM6UMEkCzWpbzRjDIzx bGJyZHJyXGJyZHJzXGJy OFF8HCKeRbWtlsKfFNvb bHBhZHQxMFxjbHBhZGZ0 E4raeYWrOALiIJwwgXKf JZXcK9kmcTJtRTypUIUt cGFkZmwzXGNscGFkYjBc W2npITShJsSjO5StyIt8 LgBbHWTayrBjlS98Mjcy y5KbZAJjOIS9HHyoTOgp bFxwbGFpblxmMFxmczI0 XHBsYWluXGYxXGZzMjBc bGFuZzEwMzNcaGljaFxm OYkjMrZxMEWpWWepR0tc RtEoP9UuWSIuLdGuYY1h FDOoPRRsOdP6KZHkXLKL NZNpQBEKW9YGLivgOIIX Q2XpaZoizM2iWtZySsJq MFpzTY7eADMhK7clfIIy JBSiNNBpY9mnLvFdwK4q aFxmMVxjZjJcZnMyMFxs dHJjaFxjZWxsXHBhcmRc tY52Prbbc1ZcIFGrJBA6 MFxzMFxxbFxwbGFpblxm DXptghB8VYRsJInzORIj XGZzMjBcbGFuZzEwMzNc aGljaFxmMVxkYmNoXGYx QZsfQ1swMtGcJ0PsHJJi MjAgMTIvMTUvMjAyMlxw bGFpblxmMVxmczIwXGxh qgrpMQJaEOstQ5smVmBy JMBssEgpVDogp0PkLELa VPKqLrmfhuJbFJr8evVu XGNlbGxccGFyZFxpbnRi uDzwo7VpgcYdlFrhZUCz XHFsXHBsYWluXGYwXGZz FcCdvYwkiY6xGxEjLqAl WMohMC6iOXEaU8sjyDOi WGQqHFExM5cyHwLqhW2w aFxmMVxjZjJcZnMyMCA5 QoAlRdYwLlHasQdkzF9j GpWeSfDvDQfeHU8uKXEv D4tlkIVhXBOfWPXpO8lp PvAycU7xySsnQKwbNoGq ZnMyMFxsdHJjaFxjZWxs FSrlxFKkHKFmb3gzKRJc XBQtjAOzPJP5wIYiagIa kQznyOlerA0gJfOeFwBl NFxwbGFpblxmMVxmczIw GZzdosjdLRRsOLclB6on YwOlWCKwkZvqFZcdm8Sr XGYxXGZzMjBccGFyfQ== Diagnosis (test code = n9oxfQDcZZGmnPDgSWWg 34) X3cjcsAfVIDqhQMsQ0Xt nbhxNBjyZK1fLK1moRng oHAbePNyILYqViRgc2ea c918jHIkk5gkTAWEbipc eZb5tLtjK58fp3W8Dgep D5ofCUSfFWegXJNcITda nYStGIi7PBAbyKWsfvBt YrBxEAFjrIKxbNK0PZZh MQ2rlcjkUGqbWHhfNMFa cxG5POKbdAEqE5AqVPNq JQ3iikzwDSJ7UVdkGRIl JBW4IqRaUVZzu9Vumrv6 MjBccGFyZFxwbGFpblxm czIwXGNmMSBPdXRzaWRl IChEMjItMDIzNjUsIDIg M8EsOYFzGxgWI9xGOTZz LNUFMpflB81whQZzhCMz PO4dWBDyYcD6QgJhXvNf QmgrDOMwE4YbDVSzqcnp tWaeSXyykD08IbKcIX6l IFBhbmNyZWFzLCBoZWFk TBJiPAMmVEYqnD3gTM3v UPLtWUChw6IlbgW7sZ6t J7Wiu9QzvFnnzVCvCQGe rjOSYbUME0jSXIOWHKeT IERJRkZFUkVOVElBVEVE OZXLN2ACKMWPFWWEN9GQ CkJCIc5ZOE0pWLqXVZJn P08ZNLUCDGwjlQLwkD== Comment (test code = u2iisLWcIJUqsJQnFUYa 9851) L8kazmCsQDKkiLFdY2Un jgagCMtoVH2kSH5xsEeu eLSglXWuYADaGfOdq7ty o292pEYoz1wcNMXPavpc nIb4hDizK13pr0U4Mdjp X44geGGyGRH5VAQnATAq rBGnXUVpDLC3NPVgfLBp Q9jmIHVbCF4ekfwqQQlb AJbbUIUulHU2JDTpsVAc M2SxEMMzTFitXCZryln2 KoQlDo7tlZYetFgqLFhl YXJkXHBsYWluXGZzMjAg RfVfgWJri8VvtWyhzbTw SCYzDFS4Cm9orYJuMPEb o7KaplM9yTH4HlvfYKO4 Biomarker Block(s) (test x4muvIQeZAGpoFEyQXMe code = 9841) D3rudhIvKTDiiTWzC9Zg knyfMAzbAQ7ySL2mhQlz xPNkxMLqIXUmIrQce0pb b990yQFqj4hpQBPMgonq rLy4qGinN35zq9S1Zatd E03uzERaUFA8SWAdREMy bIDnRHPfNSP7NQUswDNx R5zdKDZlGW2hmijkLMrl CIkbBEOzkLS1THTlnGDx Y1ZrOIEzGQsoXTQvybp7 NiWrTu6bhRMplZnwQEye YXJkXHBsYWluXGZzMjAg VDogIEExXHBhcn0= Disclaimer (test code = i9pfnECrGVLcbKJzFtHv 9844) RVKtYVFez9jqDPEuvNHd ZzEwMzNcZnRuYmpcdWMx CIYtBbZry1gwx875uRCv x8dtFUMiEeD3jXVwPENq bBUzV350XKJyAWvnn8lf w0KhJIJnxSXlr8K9EUIL eynnkYe2qSstD07wl9O1 RqskP3ooADEsSLNqD9Eu XG4qAXOwWfy4WAG8OGL2 GWEiYTMdE2KgNR8uCMDj bOCoUKb6f8mtoUeqYZDt FYO0p8wrRVvypxYpRJ2m tk6ntWs7r8watyWwQTIk REPkeZFQSYSwN1TbgYus Sj4ulMv8pMnrHlzvNSY2 Gry8SK7qqa56tma6tMhq CSZyqgpbHfQ9VVbcPAOb vlffONw2IBvxZOCdzTU6 JMIupDZmJ5GyUFZaQV3z ial0HIR1TSixESCpQeD0 NDBcaGVhZGVyeTcyMFxm k161IGV8FoRyVS3uF6He j7Z1iY2vyPNaKSCjcQUb YaQjUUVhyl4lbBQiJNgc d0GtDCE2hqF5rZJwsZJv NHItPY78Wwehs0BsHduq VNL8MTSzkcAol2Its1ry VdAiwjJcG5zzA4PnDEGc ZZWeLXQiAlFrssGcs6Kb a4BoeUItsAc8n6baUOWw PMWflNsup1mwHVC8TXHw W5T2hPTwx9ayXEmlWSJx zZD5emX8YGNcnVJeH4Yc zR4hCBYhSZ8rpei7v9af ABK8LCxcARFlFkC3ngS2 NDBcaGVhZGVyeTcyMFxm y311WKL2JqUlQRStg1Fx X4UnmAakY46spTgyA41u DEKqtIocsT1fdYgegY4p ZjBcZnMyNFxxbFxwbGFp hukaSQtmlxB4FVhpalaf FTCyEXbiF5hqElZbXQDq mWarHZmza7CtGIWjSDUl HjyfdeS0XNKMt22lOUOk c6LvAYGjoP6pdJPpHRiu xyBiiRM7SUxgdzHbYfEy huAuLAXycF1qQRWnRB9i TPOhbqDtvp9oihOoJPTk JCEbT5HnsufbdQruznCx XKKjbz9xtbHcTEU7VSNI PH5XULOfNERez74qTUOd dQbdkM0elXMxjhAbYZEm s5KujQ8lcBRRQGKxE8yj LV3vLPyer4DokMRtmJDp qBT7VOPuq1SqAcDiymPj uJWciCLeC9OpxBnxN6dn ZUGmFTVkjrGpuUUyf8Pz UAPlkUV5bSKcQO2IBkCQ l54iELZbSHETzpYgUXQd bCzxcIN5myI7rV2vHcPM ZiBhcHBsaWNhYmxlLCBj b534ma5tmpN3WMUsVXEs xomgi2OpXPOdJOItaL83 GSVmNIZfde7tzewlgJAh ggAdL4Ddqil6qO3iKMTe YWluXGYxXGZzMjJcbGFu ZzEwMzNcaGljaFxmMVxk ZoSeJBWoWHsiZ7boXqWg ZnMyMlxwYXJ9 [facility] Blood Ydesxel1273-21-31 14:38:47 Test Item Value Reference Range Interpretation Comments Molecular Diagnostics (Received) (test Yes code = 8400) [facility]ENING) (anti-HBc total Ig; HBcAb total Ig)2023-05-18 14:19:27 Test Item Value Reference Range Interpretation Comments HBcAb. (test code = 5742) Non Reactive Non Reactive [facility] Surface Antibody 2023-05-18 14:19:07 Test Item Value Reference Range Interpretation Comments HBs Ab (test code = 28382) Non Reactive Non Reactive [facility]21 10:51:33 Test Item Value Reference Range Interpretation Comments Case Report (test code Medical Cytology = 104) Report Case: [id number] Authorizing Provider: Effie Pablo MD Collected: 09/01/2022 04:20 PM Ordering Location: [address] Received: 09/02/2022 08:59 AM Service Pathologist: Jose Grover MD Specimen: Common Bile Duct DIAGNOSIS (test code = g9dpmQRdLDOiuIF5LvJsNK 3220) Yzj7juo4XpbZDieRZgVQww nWMgcnDzlp46gJJ8oP18SC 4bXXYrGgG3AETfyuT7Jov3 ZKVvZHHsmOYkT128d2wik3 fxxuLucAN8jXaqESLyylvd SuB7DLsmGFNnemcxLEp9HL ngGHPwmPZ6WMYkmXTrA4Rv MYLbTG4lnrd0XGA2QSxgDZ XpKkE6QEHfnAHnGXRdkGvw ZCegh178OKS2EzGrMHJqqu OckBhkfN1mFwEsFCDST88S W21dLuvEDZINAHTASKDTEP BSBM6YOZtLENKNS4CLBtQt OlxwYXIgICAgLUFUWVBJQ0 QYKAEvczYkHMLoO9RpzyBb n8MrAIQdfWBbBBdlh0VaeD SsPN0pJUS5hEXcF0HoVCY5 U4KloGDojXw2sUGktLIaVH NlbGxzIHByZXNlbnQuXHBh asAeJWIrSsFrb8hgo2FcKT TqTX1wE02eOnkxwSJmcRA9 wBShNXTeaSEeBUxqaB8ko6 Psng4poUMmZNJdHKIUH9St tYy9HIRxjPu9mPXrCNJfDW DiwJWbJBRpENTrP55rpWWu qL7nhRGkLPYeQhMziLZzXM RsHya1EPRliQYyACKlVuZb C6tfroujXmKEZQAno4sjQ9 mnjEUAkYUiD0YuSTdxapNq JDtsENynOeTqREq2FY74Fz YxXHBhcn0= COMMENT (test code = g0wxpRExAOEmmNC4YpSgYC 8084) Qbt8oap2EllHOxkOPbVRye pCZdpsXwsi01iYH7aN71QD 7xZBYaPhQ3YTKheqV1Nlp0 GVZaQHOegXYfJ267w8mjz4 rpzrFeyWR1lBijQZWwtwww MrH5BQyzJUMapfslRUt7LD ktBESyfOQ6OZSdxEIaX2Gn ZSWrQO1imjn4YUO5RBvgKR UmMyE5WSCraHMyKANkzHsh FDcsw329DHX7JlNfZEJyil NmeInarX3jBlGhVWBFI7Td zNMqtUUcuxPlN1secMGhrE VguJCmp8JhiWqrJAc4PTC2 mNJmI9RkVYaymUqqOE05F6 hsFWZiKH1zSGXeMI8zduIw YI18P0hjAQMpqAWaOwWcpb CmJLOcd2AlOUjvrOrzKNT4 C9IraOBfbAi4sYLzpAWpII tsLTRgBJ8jNIBeVO60AGTx jEx1bKWjjHD2LNWyIZYbgT JjptDskXM1kFKsRJKcOKCj I8Wwmef9WNYgy11nWG7hZE ZlqCkvRagoH3dsoXYziQAc cGFyZWQuIFBsZWFzZSBzZW Lyj9BwO6rhTWcopNJ5hN7j y1e4XXWxm3ZsKJTzVGZcQr Y8BZMdun1= CPT Code(s) (test code m7vicYShHRWbcZT8AlVxMW = 3357) Oqx6tsf1OcyEIbsGYcLDrg mPPxshByyz51eYN7iU22YQ 9jXWIyXbY5ESYfeqG5Fym6 EIBgKUHpzEEoT122l4ucm2 crghLhtBH4wTvcXXYutxgp CjF0FVdwRXBpfwinSKl4HD lyLCNiqFQ1UAXrqJJrX3Yg HUUgLK1dfcm2JJR3IRxiDM ZwVmA2MEVbuTLgNUTwpJeh VRwyn771MOV3VoGwGQHvmq EjuEdumS1tXbCkHGV1TFMp OFxwYXJ9 CLINICAL DATA (test k3rauUTgDANqcZG9AmUxXE code = 3355) Ajo5cth3SpdOXigZOlURph dOCzoqWmbr40yGS4mB65QD 9wSLYjGrX0PCUteoI7Zpy2 XPWbGSBbzJJdC530d2ech7 synlGgeUU5lNewFRUybztn IyK4LDjhJQGvxekjENa6SJ vvVGNmoBZ2QYAgdNFeP0Jl GQFvAR9xurj7ECZ4JYkwIL PbPeM1FOKpmUXfFZPmyUjk MCfbd322GDH8ZuMqWUPpvx PbdChqwH2tXcNqVEE0OvFJ IHdpdGggSFROLCBidXQgb3 EmNIQ1tOIqUAvkXAh5fImh HXLiNNRozqRtQLD1iKIjAP TvlG4sxGwre7ZzdXAtZ9Bt o8EnscGnWMAnn53dgdUfUJ HtfI7oPN3NZ0Car7jyw5Wz MSAikFPzS2VmLEThGeMtMA AcXR7le7Xfz4q0pJWnwyDt VUfhwLV6gRNrPO7wIYF1yR JhaGVwYXRpYyBiaWxpYXJ5 NOAewHJ8bI5eJYN2cQNkFC BoJKJzw3amOMENVplgrFFb UlQnMDIPMNK3JwchEHxYJT G5VSwiLJtHDRG4Vp2fIq2n ekM2dfSnH9XtGJDVCF5nzp VhdGljIGhlYWQgbWFzcyAy UnoqH59rcQTzCdYsQ24cpU XjqqWlRrkkGO9qTHGeywZo itkeloWcpPp6ROUazzWckr Wry27gp9knYKAvqRRqJTUd NTXeBN3lNYJpreLiyRRrvR Qtb7WaLIEbriGgIFHao9Ax nsPdvc5pPFdkSYRzkz5= SPECIMEN SOURCE (test s4fodTGhMTSwdCL1TvAwKG code = 3377) Jgs7tts9HdfXTzaHDyWIfv mSFjspHayf56uNG9eQ30GY 4aDBAoFkT2VDTwjtI6Rlc9 MSAvXEJoxQJwW697p5kcn0 flnnHkmGS7pTzlPDWdjozv CeS8RHyoOMBufguvQPc8GG ewGBNhrBZ5AWDmyTHxW1Wn ISJhLA6hcqt3HSF5QDcoCT YoQcL6UELeeNRbWGVesBwt FGwvt723FCD8ImLbUPZpky BbjLcfjA3fItXfUDONN91Q F68sEylTPGBGWKTNNXQPVK HZTQ0SJTShfa5= GROSS DESCRIPTION (test f3mafSUhODUdpRN5BeQeFM code = [id number]) Bgl9akt8YpxNRsyWXbFChp pIJzayLiol21jAC8cF73WR 2bEWNhOmR2BMKakhP4Wit7 MYVnUBFwrFTcF654z1ssf3 npoeXaeYP4iWsiGOMolxzu UuK0ZHxvYPFkksvlEQj5MF rzEQLydRX9FVViaLFgZ3Sp QPQsLG7demf3HTC5UMwlUB UsNdL6JYAcbONoTRIbeTcn FQukb691YJS9ScWeWFFyun C3OWunDZWmF6UlJ6MfCCiw WQA3EKWaYCXzRVKiYNTsDG DfVBywjvZ1x9ybUBNloSBj OWI8ECsphRItCGHzRCCnII rdOmIEPgNxKzO1QeM8GTh6 KvL7ZYz6DGBDJrBnHdEvTb L7FWw9SoihPXi5PSv9POvA QsV8CPrnMOdpJdIfKNTaNt WnYSz7CFHgONqhhSMuMETi XRIdKYveSChsR94woBzieP 8eXaPfOQAAApDEi63rf50p LcagSTFZfNX6ElhnOKNxVz MyMCBSZWNlaXZlZCAxIGJy dXNoIHRpcCBpbiAxMCBtbH SuB0s5c5MkP1gjvrXkTjHv inNrIXHgOKGlKGB4sL4tkQ xevkesgd74VTDag1VbfYFx s2ObX3IpgODtpA8rwd69GR TovJEcSTI0BS1teDraELEr Z9HlW9HdokP0UYOewu4= MICROSCOPIC DESCRIPTION q0uiyHMrJDNnaTC4NrByML (test code = 3371) Kml4puh1XqyXIqnBMkVJgj tMOjorYurn04dLU7qT87AK 8eNFDuIaZ4HINehnN5Nca4 TVAwAISeuHVqB105j5lej4 dkgsFtjHM2zBrlLPXaaaew RsL4HYciVPVgbdqaTJp3UK zwFUMwbKS2VGOzwBLsY2Ed UHBoXN8nxaw0DZN2GTiaBK BgQuL9DMBttDKdNIHdjHep MWwsi031OJH5XtSkIITprc JlySqtjS5uUjKcLQUMTDSp v7AyPZCfFJYpunsbXPPaFO Bhcn0= STATEMENT OF ADEQUACY Satisfactory (test code = 2757) Gross assessment was [facility] performed at ([facility], = 2777) Department of Pathology, [address] [place] [id number], Technical component was [facility] performed at ([facility], = 0536) Department of Pathology, [address] [place] [address], Professional component [facility] was performed at ([facility], code = 2779) Department of Pathology, [address] [place] [address], [facility] 10:51:33Medical Cytology Report Case: [id number] Authorizing Provider: Effie Pablo MD Collected: 04:20 PM Ordering Location: [address] Received: 09/02/2022 08:59 AM Service Pathologist: Jose Grover MD Specimen: Common Bile Duct COMMON BILE DUCT BRUSHING (CYTOSPINS): -ATYPICAL Scant superficial strips of atypical ductal epithelial cells present. Background benign biliary type epithelium seen. Scantly cellular specimen, see comment. Signing Pathologist Direct Phone Line: [phone] signed by Jose Grover MD for Negrita Calvo on 09/07/2022 at 10:51 AMPreliminary result electronically signed by Jose Grover MD for Negrita Calvo on 09/05/2022 at 11:01 AMScant superficial strips of mildly atypical (mild nuclear enlargement, nuclear membrane abnormality) ductal epithelium is seen. Scant cellularity precludes further characterization. No cell block is prepared. Please see surgical pathology case [id number] M with HTN, but otherwise healthy, presented with 1 monthof progressive abdominal pain. MRCP showed a pancreatic head mass with intrahepatic and extrahepatic biliary dilation but labs showed TBili 1.5. AST 83, ALT 188, ALP 276. No jaundice. Pancreatic head mass 2.7 cm x 2.4 cm identified. (Pending result for endosonographic appearance is suspicious for adenocarcinoma).COMMON BILE DUCT BRUSHINGA. Common Bile Duct.Received 1 brush tip in 10 mls cytorich red;prepared 2 cytospins, not enough for cell block.Performed.[facility], Department of Pathology, [address] [place] [address], QttwjoS[facility], Department of Pathology, [address] [place] [address], GbizfeS[facility] California [facility], Department of Pathology, [address] [place] [address], Tel [place], [id number] 10:00:00Reason for exam:->bile duct disease [facility] : 1970 Sex: MAn imaging unit was utilized for this procedure. No radiologist interpretation was requested. Refer to the EMR for findings. Refer to PACS for any patient radiation dose information.BASIC METABOLIC [id number] 06:31:40 Test Item Value Reference Range Interpretation Comments SODIUM (BEAKER) 138 meq/L 136-145 (test code = 381) POTASSIUM 4.1 meq/L 3.5-5.1 (BEAKER) (test code = 379) CHLORIDE (BEAKER) 105 meq/L 98-107 (test code = 382) CO2 (BEAKER) 24 meq/L 22-29 (test code = 355) BLOOD UREA 13 mg/dL 7-21 NITROGEN (BEAKER) (test code = 354) CREATININE 1.05 mg/dL 0.57-1.25 (BEAKER) (test code = 358) GLUCOSE RANDOM 122 mg/dL 70-105 H (BEAKER) (test code = 652) CALCIUM (BEAKER) 9.4 mg/dL 8.4-10.2 (test code = 697) EGFR (BEAKER) 86 Interpretatio n of eGFR (test code = mL/min/1.73 values Stage De scription 1092) sq m Result G1 Nighat l or high >=90 G2 Mildly decreased 60-89 G3a Mildl y to moderately 45-5 9 G3b Moderately to s everely 30-44 G4 Severl y decreased 15-29 G5 Kidney failure <15Reported eGF R is based on the CKD-EPI 2020 equation that d oes not use a race coefficientEsti mated GFR is not as accur ate as Creatinine Bessy minnie in predicting glom erular filtration rate . Estimated GFR is not appl icable for dialysis patien ts [employer] Instructor ID - ADMINPROTHROMBIN TIME/[id number] 05:09:05 Test Item Value Reference Range Interpretation Comments PROTIME (BEAKER) 13.7 seconds 11.9-14.2 (test code = 759) INR (BEAKER) (test 1.07 See_Comment [Automat ed message] code = 370) The system Helios generated this result transmitted ref erence range: <=5.90. The reference range was not used to int erpret this result as normal/abnormal . RECOMMENDED COUMADIN/WARFARIN INR THERAPY RANGESSTANDARD DOSE: 2.0 - 3.0 Includes: PROPHYLAXIS for venous thrombosis, systemic embolization; TREATMENT for venous thrombosis and/or pulmonary embolus.HIGH RISK: Target INR is 2.5-3.5 for patients with mechanical heart valves.CBC W/PLT COUNT & AUTO [id number] 04:41:55 Test Item Value Reference Range Interpretation Comments WHITE BLOOD CELL COUNT (BEAKER) 8.0 K/ L 3.5-10.5 (test code = 775) RED BLOOD CELL COUNT (BEAKER) 4.78 M/ L 4.63-6.08 (test code = 761) HEMOGLOBIN (BEAKER) (test code = 13.4 GM/DL 13.7-17.5 L 410) HEMATOCRIT (BEAKER) (test code = 41.5 % 40.1-51.0 411) MEAN CORPUSCULAR VOLUME (BEAKER) 87 fL 79-92 (test code = 753) MEAN CORPUSCULAR HEMOGLOBIN 28.0 pg 25.7-32.2 (BEAKER) (test code = 751) MEAN CORPUSCULAR HEMOGLOBIN CONC 32.3 GM/DL 32.3-36.5 (BEAKER) (test code = 752) RED CELL DISTRIBUTION WIDTH 13.0 % 11.6-14.4 (BEAKER) (test code = 412) PLATELET COUNT (BEAKER) (test 418 K/CU MM 150-450 code = 756) MEAN PLATELET VOLUME (BEAKER) 9.7 fL 9.4-12.4 (test code = 754) NUCLEATED RED BLOOD CELLS 0 /100 WBC 0-0 (BEAKER) (test code = 413) NEUTROPHILS RELATIVE PERCENT 57 % (BEAKER) (test code = 429) LYMPHOCYTES RELATIVE PERCENT 33 % (BEAKER) (test code = 430) MONOCYTES RELATIVE PERCENT 5 % (BEAKER) (test code = 431) EOSINOPHILS RELATIVE PERCENT 4 % (BEAKER) (test code = 432) BASOPHILS RELATIVE PERCENT 1 % (BEAKER) (test code = 437) NEUTROPHILS ABSOLUTE COUNT 4.54 K/ L 1.78-5.38 (BEAKER) (test code = 670) LYMPHOCYTES ABSOLUTE COUNT 2.62 K/ L 1.32-3.57 (BEAKER) (test code = 414) MONOCYTES ABSOLUTE COUNT (BEAKER) 0.39 K/ L 0.30-0.82 (test code = 415) EOSINOPHILS ABSOLUTE COUNT 0.35 K/ L 0.04-0.54 (BEAKER) (test code = 416) BASOPHILS ABSOLUTE COUNT (BEAKER) 0.07 K/ L 0.01-0.08 (test code = 417) IMMATURE GRANULOCYTES-RELATIVE 0.60 % 0.00-1.00 PERCENT (BEAKER) (test code = 2801) Tissue [id number] 14:57:26 Test Item Value Reference Range Interpretation Comments Case Report (test code Surgical Pathology = 104) Report Case: [id number] Authorizing Provider: Munir Mckeon MD Collected: 09/02/2022 02:07 PM Ordering Location: [address] Received: 09/02/2022 04:08 PM Service Pathologist: Haylie Person MD Specimen: Liver DIAGNOSIS (test code = [id number] 3220) FuZzEwMzNcZnRuYmpcdWMx IHtccnRmMVxlcGljOTYwMl wpsePuPVUttIQjC0Yrvmgv QXaaIN1yLZ3crMjjcDJmzH AkOLUpLaVaw2kkh111bRXe u5jvNDJLlnuinEk9qFmgZ2 8oq7Y8OxhiR21znRAzIBV6 QKGfCRGnwNVpYACkKUC0BJ OnyEMeQ8jaJSSkMP9tqzma QQdkJVnuXSXauPR6QHFlkC HzM4IeVFJtWLmbZLChhct2 ShJzXe8fmEEzvKvrLMhqBU JkXHBsYWluXGZzMjAgTElW LPHqHAOAP6UZISxcnSoxPQ xvqD2uIH7ADEfjtZe5APLk e2EvtNFkvLenPW6pmTchd4 FnABFabK9modLxzAaeTOIf YRBypKWcdtSvBKCrm9pdsL NvaWRhbCBkaWxhdGlvbiBh jaByG84vU8NwaWnxvgvbq6 CvO9WcsLv7IGYkQqD3ZR6c oMEce1J8BaphjrAnHeP6aj XybRqympmtMFN6w6xoeYYb XHNzdGUxODAwMFxhbnNpXG PqIunyefnqWXXeYZU5viQq PGOuANjdVTDwBWyiNr8opA GmfFinSjGhHDNxe5erzbUI spdtpUc1s2buYTAoGfL3oE LwJFewT6nnxcOwfTNdTMQx ORn4wQ88SUXvkN8mxHSoFE lhciHhLoP2JVkhUPKfZfO8 KJApjOUvWHEfZ5pzIJUxPM ywPUGjEHzxmRJyVCC7vIzf k7N1yJLqgANctLhrGnQtIl KnCjHCf4UcCEi6mNwuG8Zy EQDyWmS9yCMfZHVeJTezDE DgXTQnteC1wM83IWmglkL6 rVGcz9Qwa36cm414bV1mmY MxKER1KHLuRTAdrVNpXMYq TEX2NXGhpBPuF7gwBZQjVW 5jvpexXEnfLImaKJCgvOZ7 JGNpsOSkB7VcEHOyDSluMS Aorxh9WlAiMo9toSQytGtz EJlec2hzv1ysgUQlBvy6US LdLoJmXujtZNcit2Cnb4tp XASlqp5pNDF1aROkaPwea3 O3sIOdXGDcsLEwSAZrKJ2e bIIuOGIinZ8gemrvFTGdMq PpugjtYHHddXxljpHfHg1t jTeeVZZ7WFxnC6wniZ8jEz N5OJptX2avsV4kBWu6BEdd XNZlxYL8nlI9CNNlhSWdJ3 SwaD7tGQUjSF7qgwl8l2qq TFT8VTgkFWEhLuE6xcE7YE FvaZInWUUnrZbkUHsjz725 EXT5IwKjRQWox4BuZ8SdbJ owZ71kzDlqT27cXVPjwLpc uT9qhDyzpU2hAiPwIvFiNP jlvGquRE7tJUCrL0hyjPDs FIEsOWFjE0vhFlDgmU9uqX ifWSupxzRlTKTeDsj2TGHk yHArWRNnWdm2MOAmUNGvE1 2qvhvqFAQ6iO6li7xyq2Fb FObjGJR0EDMsr03rALkddf L6MLzaOl30HKbsEKZ6ZLpf YXJ9fQ== COMMENT (test code = d3vqjPIeSZUywFQ3SrPlAC 3350) Ahz7pdz8XuaIAjeCSdLEao dMLrcxVoer47uAJ2rI38WL 9nVKHxBuN2ROGksnS2Acq5 SVRmRYZoxGCeY785n6fpf3 ecuiYxbUZ3hKwnQSOqaspa VvV0VUltTHBuioidOXf3SN udJUJqxCL9VHPfnKDhP3Xk PGTzHP9mvsk1UXM5QQskSY ZjUxZ8FKNorLDiDXEudGcf WBjdd092OCU4IaQyWQSfsy GhiXvbrA3bGpAgKKQFyXqr pMLlaOSicEK9r2U3OM5iEC VxyqZgFQS5fAGmQDMnyp2p GKOpjY8umRImdSAxgo02LV WfICWBfTLkLfbusOO6PO8r rNYrm8WcMtIaafHyfvRzQY 53GKGhwrSih1FazLjdTHCo ayvceHYzJScjw4dgqs0eGP PgaD5kR0YgSKXsysOahCK1 yU3zOOybSSKpD35dgSMeDA VkLlxwYXJ9 CPT Code(s) (test code g8zqpHCmFKXidQN6NqLnCR = 3351) Pfm0ffo6IpjIGgoCAeSDvs bYRbbpPwse80eGS8fU40YO 1cYBXyEeH6HPFovcS8Pcj8 EVHvNBWplMWlM976c0mfu5 zkrcDntUN4uIupZPNelbsn JtL6FPosXWIvuqfzYOs7IQ uoLRUfnQG1NKAvnMBwH8Iv IRPyXS6hzia9STI3IRzzYM QaKwB1CXIjlUKaHDXzuXjv ALrdm576FWE4NjGjTPGthf FrbRnowC9nNjOdYHX5HRRo F8pdOGB5 CLINICAL HISTORY (test u8froPBgGUOzuUO4SfBaFJ code = 3356) Ccw9nrk6OajQZbyFDfQRhz tXQsowFycc39pEQ4pZ94FO 1tUWCoIhQ9HYJnecO1Jxw7 RNIeAFBcjQHfM920f2qdt0 juzaHtqZI2sRslWFAcjfzp NwD7VLjvJUGououvHAy3QL ajKPWxcRZ5LVYomNGxH9Oc UUHyGC1nbuk4DIK1HYozJG QePtV4GBKnpNFhGKAtaExp TQaop118EMB6AzPdGVOjsx VihWmljQ9lOzJoWLJOgNUz ibRvDSHpb6Bzu6iaCXEtiH QzBMX7OSPgwmEyGOM3cRPg U0FjL7UlXLGifo1= GROSS DESCRIPTION (test e2cxdXZrQHMxmPWDGQRsZ6 code = [id number]) grwmKfSMSntHPoO8Upaqhz LIimQK1gQC3jyVmvpACiiW HgKC4AZCOvYuVaNFWmoFBf yuOaAaEeUEWgcUVjdXH0ZB BqIV1hedvlSRxsBWypLTHb gpB9LZOxyBSuB3YeZEOsJH 3gdrapJTY0XWlhlJ1cvhJE WessTr6eqBJzzDmlRoCgDl NoYXJzZXQwXGZuaWwgQXJp AVv5iU8JAqvcU06kl3Q5Ub p8BBZsLRUhL8FaZY0kGDFa tNGeD37VJhswHTS7DGWGLc hbOVQjVW4Hj1suHKNkgSMc TMU3FTlhtMGuOTWyGMJwPX m9EKFkDCzveSPfQN4exUpy WldsrTexj0RufVBuCOgoSI SlBPPrFWqsKQNoVM7PBnTd YZH9Xpf5VCDdKBx2TVk2RC 5OIjZuOSJbKGItABI2DLVq RZs4AGfgQX1BCXD0LMW5Ii B0CmS1HNN4VlVtMFEdCuGn XGYgQXJpYWwgXFxmbCBcXG 5jfVxwbGFpbiBBLiBMaXZl hj4keXQlLU5EMIVpmAZFCX M1DM4kYEWWSxamkUKkIUGd iWkcNSanuH3ePA7BIQn2sj EqIZNgAXnodjFoLCMkP2Xz rvPvVQqhJWHqdh2mzHxrMJ reWdLlHLAtz9a6hGH7dOFt kYU0zTWbpWckPqXzBW5veK CyVR1tQZocOXljdqFbj6Qy WU04uSUdpzUxmlLgVDI9Mc IwIFwnOTNsaXZlciIgYXJl VJJvpIMsJMZ3gNXjEXGolN emFHLvPkBehSpjs1KuEHFs dqLmQU4hQIK8gjlkJfD9bV U9ecKoFsPwF45qkT0vmVRc S6EqXMA6iFdmkBKqqjOvw0 EevLk6kVFfRPrgVASblF1g mK4hKPLsAFIbhtUFHgysZL AwOCziH0BnSZTnSaKuXQgd YXIgQXJndWVsbGVzLCBQQS fdBEHpTUWRM4GnYWqjwPsf dY3ySBJyG89xj4TJk0MqBO AbAAgmz8xylLghg1CyqYQw RSucHVKssFJfORvnbJ9vLa Mgi6xndMg3LAkcfeT0UPDl uc6TVwkxwR5dTfNoq9rfwA n4HHDOTbnzcfR9h1fniFmr m5JeeMUxGN3QVu4= SPECIAL STUDIES (test r5mhaRAxCUZtv5kzTNIzkX code = 3376) FuZzEwMzNcZnRuYmpcdWMx QMrvraTxLSfsm4ExS6PeZq AwMFxhbnNpXGRlZmxhbmcx XUFrZTT9iyHpRUWoFMubUJ RsCTkyGf2afHRxjMkoAxPt CZCqj1wxhoGAqqxczNz3d9 kyQXUyBiX8yTIiMFoaF6fc caZqrMJlE1ZffBPyhDg6a8 reBhJaXtQ8mDWgLDnxJ5ce eqLzrALjUPFbZIx7cR53MH XnfT3gyHWvIDbcyjYzMaF4 ADghXHBbMuQ0OGFkiLIhGY ZnW7uvLPUdOWamNHVeNUot kXFtMJT9cAfzb5Q0kCQltT XltBekMrUbJkWiPjTMu0Wn WUb5fJgmL5MsSMLoEtH3jF QgUGFyYWdyYXBoIEZvbnQ7 dLvtdkMud68psDVrENJqEK OwOgUwzKreSDAgTLFWz3Lg aLyjCAW6tIm5aSwzLtobPU I7Zly6EE9xrx42fea4sCbb DFNsmxxwBuR4GQzaQBPcwu chAJr3GWjcFZXwvXB0JVVh cUNlV8ObVUZgGN3eqcd0LZ B7QJszKWZjVoS8QCVwxWUa SPHmpDavYByvn173XGO6Cf WcKZ7oN6Asp2K2yN3zuOAi BJTesQJkKaQeDRVczn2zdA OyCOkvj6TqBMS0ocE8lSQt kRBhMIIuGG37Mppyn3PsLo hvq6RkF86uuOS3TEoyt8og ZI8sYwI7stXcSEltc0icgS 8hIuG2KJwzLQ9qSZ8pAMRn dD8pbxzkKSXnIyQqpwbtKH AdrRucawSfVj2pvIdiXJT1 WNbqG3xtuM1kQhO4UWroD3 rmgZ5xYMs0FPsnjLU5YTYl dL0hFF9hvwjxy8ztKSxoKI otEXKwwhF1otM0EZQlfZRp D3QpfA9tWIFtZX0yuofbv5 laRJZ1FYitIICbNMR1JwAm WXKml5Xpwzn6NrNkb4CgpV AdFOnoU31eb319KNSupkDs M9qnlNAhabsvaDDudtmcXV qzhoB1NZTmFFMtYNvfXWDg XGZzMjJcbGFuZzEwMzNcaG ljaFxmMVxkYmNoXGYxXGxv S5nfUwYuX3UsBXUhMiMiWD lsCTycvHRqaAYktZC6qD4y MK2wINTdlYTtE0UyVJZcmu CdrHPvPOY0iHEfnIVeWJ6m QMyxlSPhj9kkd4TeL7vrkG czrXZ5RL8yRKFgWMIkHXvg w0WhnK7cIwhggECrdmnfYY xmczIyXGxhbmcxMDMzXGhp X3nkQqAzKVQnnIrjHGdkp5 NoXGYxXGNmMlxmczIyXGx0 cmNoXHBhclxwYXJccGxhaW 1hOxHcNuJqBekaIA3qEQGv Z3whxCFlZGDsFDOxZ8llGk IxeS0bhUnlBNkcJlCkCsCn InTDj318sg0lGFZwtGQevu YEmTRazR1iBNtwRGhfCLtj yFOvYVych5ajZTYtp9k7cU NwJYOkjxTdi7teJNgselGs BNWjqRKlwFQfEJItw07wLD mqgFntgJsiGBPwa7QieQss l7BiTwRqSRaqw9RiN64qoZ JvbCBzbGlkZXMgcnVuIGFs g14tt2npGXYvXaW5fMZijT E2wFRxuMWex7KgyQxiZGWx n7cxQKZozi1khaftzWLhu4 CccW0ifhydECyqbZFsfvPs NOZln9e5cWUlVJFgQFDkYF jdgNa5PHOwc971ql5lvfF4 wFEzOTX9FFwjOGSpPYRmds UgZXZhbHVhdGVkXHBsYWlu XGYxXGZzMjJcbGFuZzEwMz NcaGljaFxmMVxkYmNoXGYx HYixM6ccQxUbI5RbDFAfEv JumGQuU9ymqLFuDYPwXFsf XGYxXGZzMjJcbGFuZzEwMz NcaGljaFxmMVxkYmNoXGYx ETcdA0nlScScS7InJGXfUf IgIFxwbGFpblxmMVxmczIy OTwinbmrWIJrSErmX2xaKc UmJSCcjSvmZImlv7MsEDNe AFZqEmxgtlTkWFd1fjIlSG BhclxwbGFpblxmMVxmczIy FCzxqpaaHTOiRKgxQ1pgPy StMQBhdGowLTgim4MpVMRy XGNmMlxmczIyIEltbXVub2 afj3OmA9miaMacaUB6TYFf V1oebZPpcPH7OPX6qD4gOH fxiqDoPJJnk6OwDZEcYRZm VbU5rS7nJPO2MkVVkKozSN BsYWluXGYxXGZzMjJcbGFu ZzEwMzNcaGljaFxmMVxkYm LwTLMuLHyaS2ddIxNcY5Ro AKNpRwBooGcsGPdvTHw8Jp xwbGFpblxmMVxmczIyXGxh odurQPIqDMceA7gdXtVzVD EehHueFHasp1PuWDBoIQLn MlxmczIyIHMgTWVkaWNhbC ZNNW00PBOlOEAsmUkvzE4r jMOICTTewvY4t7Z6IFtnTI DkALh6BKkrugOzJCTdvO7t AJYjQA7cKPr4hgKgONQyg1 ExLV5mHCGvcCEpUVT8LQFc a5VsK3Osa6JuMDWdLPPgqm 2apwQyUwTIzSYvUIGvkq25 YMGqLP3vD8daIVIlTDUkzc WbcYQgc1JvYROudRR4dNJo SX4DHrXSz43jEGErGXBAuu QnSWOfuKjjjKK0nmK1yA3d LiBUaGUgRkRBIGhhcyBkZX Mcso4umqIdDVKwCIWnk1Gi lFZizTSvccFhG6Zlf3QkPB Oecl75UDubcPIebq11XR0q I9Mlg0YlyR5cFYwpYZOdq1 IlkDCltXAsMHGbt1BbS7lp nilkFPuwgAEtqD1yMKFuNB s8NSIra6XlTLToi0VtOlXy luSaRZXoHXQvOBWplU05MP F2oAlptPykjcSgKK5kEKYu hkFeEHHcFEVowI5rIImcnx MwTVDsdcL2t1I4EGpwOAWl cjPsIoolXGW1gvLvduG5oO GcL8gkmfsoFQveIOYzc8Vo mG6olOYZeNVsc3FywCJvjF MPeINgOB8bhtDiLO6hVUX8 ODggKENMSUEtODgpIGFzIH L4HWzsVinjTJR6ylTsHDTr q2BjLWcpF6jwQ13dkCrmcB d5aCJyzClepERenAMmFFDh fgU8s5J5DPIgu0YzgeqtVY BsYWluXGYyXGZzMjJcbGFu ZzEwMzNcaGljaFxmMlxkYm YnTGVyAUufL3naVxPmQhCx RdkaMTW1jE== [facility] [id number] 14:57:26Surgical Pathology Report Case: [id number] Authorizing Provider: Munir Mckeon MD Collected: 09/02/2022 02:07 PM Ordering Location: [address] Received: 09/02/2022 04:08 PM Service Pathologist: Haylie Person MD Specimen: Liver LIVER, BIOPSY:-Negative for malignancy, see comment-Perivenular sinusoidal dilation and congestion, suggestive of venous outflow obstruction SigningPathologist Direct Phone Line: [phone] signed by Haylie Person MD on09/05/2022 at 2:57 PMClinical history of pancreatic adenocarcinoma is noted. The biopsy may not be sales representative adding machines of the targeted lesion. Clinical correlation is recommended.[id number] metastasis, suspect pancreatic cancerA. Liver.Received in formalin labeled with the patient's name, medical record number and "liver" are 4 yuen, threadlike soft tissue cores measuring up to 1.1 cm in length, which are submitted in toto in A1.HOLLY Quiroz, HT (ASCP)The interpretation of this case included the use of immunohistochemistry or special stains.Control Slides Examined: In-house known positive controlswere evaluated along with the test tissue. These control slides run alongside of the patients sampleshow appropriate staining. Internal positive and negative controls when available are evaluated Immunohistochemistry technical testing was performed at [facility], Pathology Laboratory where it was developed and its performance characteristics were determined. It has not been cleared or approved by the U.S. Food and Drug Administration. The FDA has determined that such clearanceor approval is not necessary. The test is used for clinical purposes. It should not be regarded as investigational or for research. This laboratory is certified under the Clinical Laboratory Improvement Amendments of 1988 (CLIA-88) as qualified to perform high complexity clinical laboratory testing.TISSUE [id number] 11:07:58Surgical Pathology Report Case: [id number] Authorizing Provider: Effie Pablo MD Collected: 09/01/2022 03:53 PM Ordering Location: [address] Received: 09/02/2022 11:02 AM Service Pathologist: Radha Zambrano MD Specimen: Pancreas, Head, pancreas head mass bx via FNA PANCREAS HEAD MASS, FINE-NEEDLE ASPIRATION BIOPSY- Invasive adenocarcinoma, well differentiated with clear cell morphology Signing Pathologist Direct Phone Line: [phone] signed by Radha Zambrano MD on 09/05/2022 at 11:07 AMEndoscopy report reviewedTumor cellularity approximately 60% of the tissue core involved by tumorClinician notified Dr. Pablo, was informed by secure [facility] email on 09/05/2022 at 11:10 [id number] duct obstructionA. Pancreas, Head.Received in formalin labeled with the patient's name, medical record number and "pancreas head mass" is a 1.9 x 0.7 x 0.2 cm aggregate of yuen-red, threadlike soft tissue, which is submitted in toto in A1.HOLLY Quiroz, HT (ASCP)PerformedThe interpretation of this case included the use of immunohistochemistry or special stains.Control Slides Examined: In-house known positive controls were evaluated along with the test tissue. These control slides run alongside of the patients sample show appropriate staining. Internal positive and negative controls when available are evaluated Immunohistochemistry technical testing was performed at [facility], Pathology Laboratory where it was developed and its performance characteristics were determined. It has not been cleared or approved by the U.S. Food and Drug Administration. The FDA has determined that such clearance or approval is not necessary. The test is used for clinical pur poses. It should not be regarded as investigational or for research. This laboratory is certified under the Clinical Laboratory Improvement Amendments of 1988 (CLIA-88) as qualified to perform high complexity clinical laboratory testing.[facility], Department of Pathology, [address] [place] [id number], [facility]nh[facility], [address] [place] [address], FawxfxS[facility], Department of Pathology, [address] [place] [address], XIBIT [id number] 00:00:54 Test Item Value Reference Range Interpretation Comments CULTURE (BEAKER) (test No growth in 5 days code = 1095) BLOOD [id number] 00:00:51 Test Item Value Reference Range Interpretation Comments CULTURE (BEAKER) (test No growth in 5 days code = 1095) CT, CHEST, WITH [id number] 08:50:00Unlisted Reason for Exam - Click Yes and Enter Reason Below->No [facility] 1970 Sex: MFINAL REPORT TECHNIQUE: CT scan of the chest WITH intravenous contrast. Dose modulation,iterative reconstruction, and/or weight-based adjustment of the mA/kV was utilized to reduce the radiation dose to as low as reasonably achievable. INDICATION: Gastrointestinal cancer, staging. COMPARISON: None. FINDINGS: LINES/TUBES: None. HEART AND MEDIASTINUM: The visualized thyroid gland is normal. No significant mediastinal, hilar, or axillary lymphadenopathy. The heart and pericardium are within normal limits. A few scattered coronary artery atherosclerotic calcifications. LUNGS AND AIRWAYS: The lungs and airways are normal without focal abnormality. PLEURA: The pleural spaces are clear. SOFT TISSUES AND BONES: Unremarkable. UPPER ABDOMEN: Interval placement of a biliary stent with pneumobilia present. Patient known pancreatic mass, incompletely included on this examination. IMPRESSION: 1. No specific evidence for metastatic disease to the chest.2. No acute pulmonary parenchymal process.3.Few scattered coronary artery atherosclerotic calcifications. Signed: Lefty Cisneros MDReport Verified Date/Time: 09/03/2022 08:50:28 U/S, BIOPSY, [id number] 17:38:00Reason for exam:->suspect pancreatic cancer, liver metastasis biopsy. [facility] 1970 Sex: MFINAL REPORT Procedure: Ultrasound-Guided Core Random Hepatic Biopsy: Pre/post-procedurediagnosis: Hepatic lesions Operation Research Analyst: Sean Spain MD Assistants: none Sedation: Moderate sedation was administered. 1.5 mg of Versed and 75 mcg of fentanyl IV was used for moderate sedation monitored under my direction. Total intra-service time of sedation was 15 minutes. The patient's vital signs were monitored throughout the procedure and recorded in the patient's medical record by the nurse. Local Anesthesia: 8 cc 1% Xylocaine Approach: Right upper quadrant, percutaneous Specimen: Total of four 18 G core biopsy samples; samples were delivered to pathology in formalin solution. Estimatedblood loss: Less than 5 cc. Technique/findings: Informed written consent was obtained. Discussion ofrisks, benefits, and alternatives were made with the patient. The patient expressed understanding and agreed to proceed. A universal timeout was performed prior to starting the procedure. The right upper quadrant was prepped and draped in sterile fashion. Initial ultrasound images demonstrate single subtle hypoechoic area within the right hepatic lobe which corresponds to the lesion noted on the prior ultrasound examination from 08/30/2022. Differential considerations for this lesion include solid lesion versus focal fatty sparing. This lesion was targeted for percutaneous biopsy. Numerous small scattered lesions were noted on the prior MR which are not visualized sonographically. 1% lidocaine wasused for local anesthesia. Using ultrasound guidance, following acquisition of permanent images, a 17-gauge introducer needle was advanced to the margin of the lesion. A 18-gauge core biopsy needle wasused coaxially and four passes were made. The introducer needle was removed and hemostasis achieved with manual compression. Post biopsy images demonstrate no evidence of hematoma or other immediate complication. The patient held the procedure well and left the department in stable condition. Impression: In this patient with history of scattered small hepatic lesions on prior MRI examination, a single hypoechoic lesion is identified within the right hepatic lobe measuring up to 1.6 cm which may represent a solid lesion versus focal fatty sparing. Technically successful ultrasound-guided percutaneous core biopsy of the single sonographically evident lesion within the right hepatic lobe as detailed above. Signed: Sean Spain MDReport Verified Date/Time: 09/02/2022 17:38:03 Reading Location: [place] [id number] Angio Body Reading Room HEPATIC FUNCTION PANEL 2022-09-02 10:21:04 Test Item Value Reference Range Interpretation Comments TOTAL PROTEIN (BEAKER) 8.9 gm/dL 6.0-8.3 H Speci men slightly (test code = 770) hemolyzed ALBUMIN (BEAKER) (test 4.2 g/dL 3.5-5.0 Speci men slightly code = 1145) hemolyzed BILIRUBIN TOTAL 1.0 mg/dL 0.2-1.2 Specimen sli ghtly (BEAKER) (test code = hemoly zed 377) BILIRUBIN DIRECT 0.5 mg/dL 0.1-0.5 Specimen sl ightly (BEAKER) (test code = hemoly zed 706) ALKALINE PHOSPHATASE 461 U/L 40-150 H (BEAKER) (test code = 346) AST (SGOT) (BEAKER) 56 U/L 5-34 H Specimen slightly (test code = 353) hemolyzed ALT (SGPT) (BEAKER) 156 U/L 6-55 H Specimen slightly (test code = 347) hemolyzed [employer] Instructor ID - PIAYA LBASIC METABOLIC [id number] 10:20:45 Test Item Value Reference Range Interpretation Comments SODIUM (BEAKER) 136 meq/L 136-145 (test code = 381) POTASSIUM 4.3 meq/L 3.5-5.1 Specimen slight ly (BEAKER) (test hemolyzed code = 379) CHLORIDE (BEAKER) 102 meq/L 98-107 (test code = 382) CO2 (BEAKER) 23 meq/L 22-29 (test code = 355) BLOOD UREA 14 mg/dL 7-21 NITROGEN (BEAKER) (test code = 354) CREATININE 1.06 mg/dL 0.57-1.25 Specimen slight ly (BEAKER) (test hemolyzed code = 358) GLUCOSE RANDOM 155 mg/dL 70-105 H (BEAKER) (test code = 652) CALCIUM (BEAKER) 10.0 mg/dL 8.4-10.2 (test code = 697) EGFR (BEAKER) 85 Interpretatio n of eGFR (test code = mL/min/1.73 values Stage De scription 1092) sq m Result G1 Nighat l or high >=90 G2 Mildly decreased 60-89 G3a Mildl y to moderately 45-5 9 G3b Moderately to s everely 30-44 G4 Severl y decreased 15-29 G5 Kidney failure <15Reported eGF R is based on the CKD-EPI 2020 equation that d oes not use a race coefficientEsti mated GFR is not as accur ate as Creatinine Bessy minnie in predicting glom erular filtration rate . Estimated GFR is not appl icable for dialysis patien ts [employer] Instructor ID - PIAYA [id number] 10:04:20 Test Item Value Reference Range Interpretation Comments Cytology (test code = See Separate Report 3400) [facility] [id number] 10:04:20 Test Item Value Reference Range Interpretation Comments CYTOLOGY RESULT POINTER See Separate Report (BEAKER) (test code = 2629) [id number] 09:55:56 Test Item Value Reference Range Interpretation Comments PROTIME (BEAKER) (test 14.7 seconds 11.9-14.2 H code = 759) INR (BEAKER) (test 1.17 See_Comment [Automat ed code = 370) message] The sy stem which generated this result transmitted reference range : <=5.90. The reference range was not used to interpret this result as normal/abnormal . PARTIAL THROMBOPLASTIN 27.6 seconds 22.5-36.0 TIME (BEAKER) (test code = 760) RECOMMENDED COUMADIN/WARFARIN INR THERAPY RANGESSTANDARD DOSE: 2.0 - 3.0 Includes: PROPHYLAXIS for venous thrombosis, systemic embolization; TREATMENT for venous thrombosis and/or pulmonary embolus.HIGH RISK: Target INR is 2.5-3.5 for patients with mechanical heart valves.CBC (HEMOGRAM ONLY)2022-09-02 09:44:17 Test Item Value Reference Range Interpretation Comments WHITE BLOOD CELL COUNT (BEAKER) 10.5 K/ L 3.5-10.5 (test code = 775) RED BLOOD CELL COUNT (BEAKER) 4.55 M/ L 4.63-6.08 L (test code = 761) HEMOGLOBIN (BEAKER) (test code = 12.9 GM/DL 13.7-17.5 L 410) HEMATOCRIT (BEAKER) (test code = 39.1 % 40.1-51.0 L 411) MEAN CORPUSCULAR VOLUME (BEAKER) 86 fL 79-92 (test code = 753) MEAN CORPUSCULAR HEMOGLOBIN 28.4 pg 25.7-32.2 (BEAKER) (test code = 751) MEAN CORPUSCULAR HEMOGLOBIN CONC 33.0 GM/DL 32.3-36.5 (BEAKER) (test code = 752) RED CELL DISTRIBUTION WIDTH 12.8 % 11.6-14.4 (BEAKER) (test code = 412) PLATELET COUNT (BEAKER) (test 442 K/CU MM 150-450 code = 756) MEAN PLATELET VOLUME (BEAKER) 10.0 fL 9.4-12.4 (test code = 754) NUCLEATED RED BLOOD CELLS 0 /100 WBC 0-0 (BEAKER) (test code = 413) FL, [id number] 16:42:00Reason for exam:->ABNORMAL [facility] 1970 Sex: MAn imaging unit was utilized for this procedure. No radiologist interpretation was requested. Refer to the EMR for findings. Refer to PACS for any patient radiation dose information.CT, [id number] 13:38:00Unlisted Reason for Exam - Click Yes and Enter Reason Below->NoProtocol please specify:->Multiphase PancreasWill this procedure require oral contrast?->No [facility] : 1970 Sex: MFINAL REPORT TECHNIQUE: CT of the abdomen WITHOUT and WITH intravenous contrast and WITHOUT oral contrast. Dose modulation, iterative reconstruction, and/or weight-based adjustment of the mA/kV was utilized to reduce the radiation dose to as low as reasonably achievable. INDICATION: Pancreatic cancer, staging. COMPARISON: MRCP from 08/30/2022. FINDINGS: LOWER THORAX: Mild calcification of the right coronary artery. HEPATOBILIARY: The liver masses were better visualized on the prior MRI, but the heterogeneously enhancing masses which measure 1.3 cm in segment on axial arterial phase image 42, 0.7 cm in segment VII on axial arterial phase image 28, and 1.7 cm in segment VII on axial ar terial phase image 21 are most consistent with metastases. The gallbladder is distended, likely due to the biliary obstruction. Moderate to severe intrahepatic ductal dilation. An arterially hyperenhancing observation at the periphery of segment III which is wedge-shaped and most likely perfusional. SP TREE: No splenomegaly.PANCREAS: A mass in the pancreatic head measures approximately 1.9 x 3.1 cm. This mass abuts the superior mesenteric vein by less than 90 degrees, abuts the portosplenic confluence by less than 90 degrees, and abuts the main portal vein by less than 90 degrees. The gastroduodenalartery is encased. No involvement of the rest of the abdominal vasculature. There is mild fat stranding around the pancreatic tail. ADRENALS: No adrenal nodules.KIDNEYS/URETERS: No hydronephrosis, stones, or solid mass lesions. PERITONEUM/RETROPERITONEUM: No free air or fluid.LYMPH NODES: No lymphadeno charley.VESSELS: Unremarkable. GI TRACT: No distention or wall thickening. Diverticulum of the second portion the duodenum. Moderate diverticulosis of the sigmoid colon. The appendix is normal. BONES ANDSOFT TISSUES: Bilateral gynecomastia. Grade 1 anterolisthesis of L5 on S1 with bilateral L5 spondylol ysis. IMPRESSION: 1.A mass in the pancreatic head measures approximately 3.1 cm and abuts the superior mesenteric vein, portosplenic confluence, and main portal vein with encasement of the gastroduodenal artery. The rest of the abdominal vasculature is spared. 2.Liver metastases measure up to 1.7 cm. 3.The mild fat stranding around the pancreatic tail is most concerning for acute interstitial edematous pancreatitis Signed: Madhu Deleon [facility] Verified Date/Time: 09/01/2022 13:38:32 HEPATIC FUNCTION [id number] 05:55:26 Test Item Value Reference Range Interpretation Comments TOTAL PROTEIN (BEAKER) (test code = 7.5 gm/dL 6.0-8.3 770) ALBUMIN (BEAKER) (test code = 1145) 3.6 g/dL 3.5-5.0 BILIRUBIN TOTAL (BEAKER) (test code 1.0 mg/dL 0.2-1.2 = 377) BILIRUBIN DIRECT (BEAKER) (test 0.7 mg/dL 0.1-0.5 H code = 706) ALKALINE PHOSPHATASE (BEAKER) (test 445 U/L 40-150 H code = 346) AST (SGOT) (BEAKER) (test code = 87 U/L 5-34 H 353) ALT (SGPT) (BEAKER) (test code = 144 U/L 6-55 H 347) [employer] Instructor ID - BSBASIC METABOLIC [id number] 05:55:25 Test Item Value Reference Range Interpretation Comments SODIUM (BEAKER) 136 meq/L 136-145 (test code = 381) POTASSIUM 3.9 meq/L 3.5-5.1 (BEAKER) (test code = 379) CHLORIDE (BEAKER) 100 meq/L 98-107 (test code = 382) CO2 (BEAKER) 29 meq/L 22-29 (test code = 355) BLOOD UREA 12 mg/dL 7-21 NITROGEN (BEAKER) (test code = 354) CREATININE 1.08 mg/dL 0.57-1.25 (BEAKER) (test code = 358) GLUCOSE RANDOM 100 mg/dL 70-105 (BEAKER) (test code = 652) CALCIUM (BEAKER) 9.4 mg/dL 8.4-10.2 (test code = 697) EGFR (BEAKER) 83 Interpretatio n of eGFR (test code = mL/min/1.73 values Stage De scription 1092) sq m Result G1 Nighat l or high >=90 G2 Mildly decreased 60-89 G3a Mild ly to moderately 45-5 9 G3b Moderately to s everely 30-44 G4 Severl y decreased 15-29 G5 Kidney failure <15Reported eGF R is based on the CKD-EPI 2020 equation that d oes not use a race coefficientEsti mated GFR is not as accur ate as Creatinine Bessy minnie in predicting glom erular filtration rate . Estimated GFR is not appl icable for dialysis patien ts [employer] Instructor ID - BSPROTHROMBIN TIME/[id number] 05:18:22 Test Item Value Reference Range Interpretation Comments PROTIME (BEAKER) 15.0 seconds 11.9-14.2 H (test code = 759) INR (BEAKER) (test 1.21 See_Comment [Automat ed message] code = 370) The system Helios generated this result transmitted ref erence range: <=5.90. The reference range was not used to int erpret this result as normal/abnormal . RECOMMENDED COUMADIN/WARFARIN INR THERAPY RANGESSTANDARD DOSE: 2.0 - 3.0 Includes: PROPHYLAXIS for venous thrombosis, systemic embolization; TREATMENT for venous thrombosis and/or pulmonary embolus.HIGH RISK: Target INR is 2.5-3.5 for patients with mechanical heart valves.CBC W/PLT COUNT & AUTO [id number] 05:04:55 Test Item Value Reference Range Interpretation Comments WHITE BLOOD CELL COUNT (BEAKER) 6.9 K/ L 3.5-10.5 (test code = 775) RED BLOOD CELL COUNT (BEAKER) 4.25 M/ L 4.63-6.08 L (test code = 761) HEMOGLOBIN (BEAKER) (test code = 11.8 GM/DL 13.7-17.5 L 410) HEMATOCRIT (BEAKER) (test code = 37.2 % 40.1-51.0 L 411) MEAN CORPUSCULAR VOLUME (BEAKER) 88 fL 79-92 (test code = 753) MEAN CORPUSCULAR HEMOGLOBIN 27.8 pg 25.7-32.2 (BEAKER) (test code = 751) MEAN CORPUSCULAR HEMOGLOBIN CONC 31.7 GM/DL 32.3-36.5 L (BEAKER) (test code = 752) RED CELL DISTRIBUTION WIDTH 13.0 % 11.6-14.4 (BEAKER) (test code = 412) PLATELET COUNT (BEAKER) (test 373 K/CU MM 150-450 code = 756) MEAN PLATELET VOLUME (BEAKER) 10.1 fL 9.4-12.4 (test code = 754) NUCLEATED RED BLOOD CELLS 0 /100 WBC 0-0 (BEAKER) (test code = 413) NEUTROPHILS RELATIVE PERCENT 65 % (BEAKER) (test code = 429) LYMPHOCYTES RELATIVE PERCENT 21 % (BEAKER) (test code = 430) MONOCYTES RELATIVE PERCENT 8 % (BEAKER) (test code = 431) EOSINOPHILS RELATIVE PERCENT 5 % (BEAKER) (test code = 432) BASOPHILS RELATIVE PERCENT 0 % (BEAKER) (test code = 437) NEUTROPHILS ABSOLUTE COUNT 4.47 K/ L 1.78-5.38 (BEAKER) (test code = 670) LYMPHOCYTES ABSOLUTE COUNT 1.44 K/ L 1.32-3.57 (BEAKER) (test code = 414) MONOCYTES ABSOLUTE COUNT (BEAKER) 0.55 K/ L 0.30-0.82 (test code = 415) EOSINOPHILS ABSOLUTE COUNT 0.34 K/ L 0.04-0.54 (BEAKER) (test code = 416) BASOPHILS ABSOLUTE COUNT (BEAKER) 0.03 K/ L 0.01-0.08 (test code = 417) IMMATURE GRANULOCYTES-RELATIVE 0.60 % 0.00-1.00 PERCENT (BEAKER) (test code = 2801) SARS-CoV2/RT-PCR (Asymptomatic ONLY)2022-08-31 15:20:44 Test Item Value Reference Interpretation Comments Range SARS-COV2/RT-PCR Negative Negative The SARS-Co V-2 (test code = target nucleic 11953-9) acids are not detected in thi s specimen. Negat roscoe results do not preclude SARS-C oV-2 infection and should not be u sed as the sole bas is for patient management decisions. Nega tive results must be combined with clinical observations, patient history , and epidemiolog ical information. A false negative result may occu r if a specimen is improperly collected, transported or handled. This S ARS CoV-2 test is a rapid, real-porter e RT-PCR test intended for th e qualitative detection of nucleic acid fr om SARS-CoV-2 in a nasopharyngeal swab specimen collec bell from individual s suspected of COVID-19 by the ir healthcare provider. STEVENSON (test code = This test has been STEVENSON) authorized by FDA under an EUA for use by authorized laboratories. This test is only authorized for the duration of the declaration that circumstances exist justifying the authorization of emergency use of in vitro diagnostic tests for detection and/or diagnosis of COVID-19 under Section 564(b)(1) of the Federal Food, Drug and Cosmetic Act, 21 U.S.C. 360bbb-3(b)(1), unless the authorization is terminated or revoked sooner. Fact Sheet for Healthcare Providers: https://www.[employer]/Documents/Xp ert%20Xpress%20SAR S%20CoV-2/Fact%20S heets/302-3802%20S ARS-COV-2%20HEALTH CARE%20PROVIDERS%2 0FACT%20SHEET.pdf Fact Sheet for Healthcare Patients: https://www.[employer]/Documents/Xp ert%20Xpress%20SAR S%20CoV-2/Fact%20S heets/302-3801%20S ARS-COV-2%20PATIEN T%20FACT%20SHEET.p df Lab Interpretation Normal (test code = 45599-5) [facility])2022-08-31 15:20:44 Test Item Value Reference Range Interpretation Comments SARS-COV2/RT-PCR Negative Negative The SARS-Co V-2 target (test code = nucleic acids a re not 0199991) detected in thi s specimen. Negative result s do not preclude SARS-C oV-2 infection and s hould not be used as the zelalem e basis for patient managem ent decisions. Nega tive results must be combine d with clinical observ ations, patient history , and epidemiological information. A false negativ e result may occur if a spec imen is improperly abdi ected, transported or handled. This SARS CoV-2 test is a rapid, real-time RT-PC R test intended for th e qualitative detection of nu cleic acid from SARS-CoV-2 in a nasopharyngeal swab specimen collected from individuals suspected of CO VID-19 by their healthcar e provider. This test has been authorized by FDA under an EUA for use by authorized laboratories. This test is only authorized for the duration of the declaration that circumstances exist justifying the authorization of emergency use of in vitro diagnostic tests for detection and/or diagnosis of COVID-19 under Section 564(b)(1) of the Federal Food, Drug and Cosmetic Act, 21 U.S.C. 360bbb-3(b)(1), unless the authorization is terminated or revoked sooner. Fact Sheet for Healthcare Providers: https://www.[employer] m/Documents/Xpert%20Xpress%20SARS%20CoV-2/Fact%20Sheets/3023802%02IHHY-HJS-3%20 HEALTHCARE%20PROVIDERS%20FACT%20SHEET.pdf Fact Sheet for Healthcare Patients: https://www.[employer]/Documents/Xpert%20Xp ress%20SARS%20CoV-2/Fact%20Sheets/3023801%71YVOE-PTG-6%20PATIENT%20FACT%20SHEET .pdfU/S, ABDOMINAL, [id number] 14:32:00Reason for exam:->abn lft [facility] 1970 Sex: MFINAL REPORT Abdominal ultrasound dated 08/31/2022 Clinical information:abn lft Comment:Real-time transabdominal ultrasound was performed. Liver is enlarged and measures 21 cm in length. The echogenicity of the liver is increased. A questionable 2.4 x 2.3 x 2.2 cm hyperechoic focus is seen in the left hepatic lobe but. 1.5 x 1.4 x 1.6 cm hypoechoic focus is seen in the right hepatic lobebut. Spleen is enlarged measuring 12.5 cm in length. Gallbladder is distended. No gallstone, gallbladder wall thickening, or pericholecystic fluid collection is present. Moderate to severe biliary dilatation is seen. Common bile duct measures 12 mm in diameter. Main portal vein measures 11 mm in diamet er. Pancreas is incomplete visualized. A 3.2 x 2.8 x 2.7 cm mass is seen in the head of the pancreas. Right kidney measures 11.2 x 5.9 x 5.1 cm. Left kidney measures 11.1 x 5.0 x 5.9 cm. Echogenicity of both kidney is normal. No hydronephrosis or solid mass seen in either kidney. No cyst is seen in either kidney. No ascites is present in the abdomen. Abdominal aorta is normal in caliber. IVC and Hepatic veins are patent. Impression: 1. Hepatosplenomegaly.2. Hypoechoic focus in the right hepatic lobeand hyperechoic focus in the left hepatic lobe.3. Mass lesion in the head of the pancreas. Recommendfollow-up with CT or MR of abdomen with with pancreatic protocol.4. Biliary dilatation. Signed: Mahin Chow MDReport Verified Date/Time: 08/31/2022 14:32:46 Electronically signed by: MAHIN CHOW M.D.on 08/31/2022 02:32 [facility] 2022-08-31 14:29:50 Test Item Value Reference Range Interpretation Comments TOTAL PROTEIN 8.2 gm/dL 6.0-8.3 (BEAKER) (test code = 770) ALBUMIN (BEAKER) 3.8 g/dL 3.5-5.0 (test code = 1145) ALKALINE 398 U/L 40-150 H PHOSPHATASE (BEAKER) (test code = 346) BILIRUBIN TOTAL 1.1 mg/dL 0.2-1.2 (BEAKER) (test code = 377) SODIUM (BEAKER) 136 meq/L 136-145 (test code = 381) POTASSIUM (BEAKER) 4.1 meq/L 3.5-5.1 (test code = 379) CHLORIDE (BEAKER) 101 meq/L 98-107 (test code = 382) CO2 (BEAKER) (test 27 meq/L 22-29 code = 355) BLOOD UREA 11 mg/dL 7-21 NITROGEN (BEAKER) (test code = 354) CREATININE 1.04 mg/dL 0.57-1.25 (BEAKER) (test code = 358) GLUCOSE RANDOM 101 mg/dL 70-105 (BEAKER) (test code = 652) CALCIUM (BEAKER) 9.6 mg/dL 8.4-10.2 (test code = 697) AST (SGOT) 64 U/L 5-34 H (BEAKER) (test code = 353) ALT (SGPT) 146 U/L 6-55 H (BEAKER) (test code = 347) EGFR (BEAKER) 87 Interpretatio n of eGFR (test code = 1092) mL/min/1.[address] age Description sq m Result G1 Nighat l or high >=90 G2 Mildly decreased 60-89 G3a Mildl y to moderately 45-5 9 G3b Moderately to s everely 30-44 G4 Severl y decreased 15-29 G5 Kidney failure <15Reported eGF R is based on the CKD-EPI 2020 equation that d oes not use a race coefficientEsti mated GFR is not as accur ate as Creatinine Bessy minnie in predicting glom erular filtration rate . Estimated GFR is not appl icable for dialysis patien ts [employer] Instructor ID - MITCHCBC W/PLT COUNT & AUTO [id number] 14:16:27 Test Item Value Reference Range Interpretation Comments WHITE BLOOD CELL COUNT (BEAKER) 7.2 K/ L 3.5-10.5 (test code = 775) RED BLOOD CELL COUNT (BEAKER) 4.64 M/ L 4.63-6.08 (test code = 761) HEMOGLOBIN (BEAKER) (test code = 13.0 GM/DL 13.7-17.5 L 410) HEMATOCRIT (BEAKER) (test code = 39.8 % 40.1-51.0 L 411) MEAN CORPUSCULAR VOLUME (BEAKER) 86 fL 79-92 (test code = 753) MEAN CORPUSCULAR HEMOGLOBIN 28.0 pg 25.7-32.2 (BEAKER) (test code = 751) MEAN CORPUSCULAR HEMOGLOBIN CONC 32.7 GM/DL 32.3-36.5 (BEAKER) (test code = 752) RED CELL DISTRIBUTION WIDTH 12.9 % 11.6-14.4 (BEAKER) (test code = 412) PLATELET COUNT (BEAKER) (test 377 K/CU MM 150-450 code = 756) MEAN PLATELET VOLUME (BEAKER) 9.9 fL 9.4-12.4 (test code = 754) NUCLEATED RED BLOOD CELLS 0 /100 WBC 0-0 (BEAKER) (test code = 413) NEUTROPHILS RELATIVE PERCENT 67 % (BEAKER) (test code = 429) LYMPHOCYTES RELATIVE PERCENT 22 % (BEAKER) (test code = 430) MONOCYTES RELATIVE PERCENT 7 % (BEAKER) (test code = 431) EOSINOPHILS RELATIVE PERCENT 4 % (BEAKER) (test code = 432) BASOPHILS RELATIVE PERCENT 1 % (BEAKER) (test code = 437) NEUTROPHILS ABSOLUTE COUNT 4.78 K/ L 1.78-5.38 (BEAKER) (test code = 670) LYMPHOCYTES ABSOLUTE COUNT 1.55 K/ L 1.32-3.57 (BEAKER) (test code = 414) MONOCYTES ABSOLUTE COUNT (BEAKER) 0.48 K/ L 0.30-0.82 (test code = 415) EOSINOPHILS ABSOLUTE COUNT 0.27 K/ L 0.04-0.54 (BEAKER) (test code = 416) BASOPHILS ABSOLUTE COUNT (BEAKER) 0.04 K/ L 0.01-0.08 (test code = 417) IMMATURE GRANULOCYTES-RELATIVE 0.60 % 0.00-1.00 PERCENT (BEAKER) (test code = 2801) MR, ABDOMEN, [id number] 09:55:00Unlisted Reason for Exam - Click Yes and Enter Reason Below->YesUnlisted Reason for Exam->pancreatic [facility] 1970 Sex: MFINAL REPORT TECHNIQUE: MRI of the abdomen and MRCP WITHOUT intravenous contrast. 3-D volume reconstructions were obtained to evaluate the biliary ductal system. INDICATION: Unlisted Reasonfor Exampancreatic cancer. COMPARISON: None. FINDINGS: ABSENCE OF INTRAVENOUS CONTRAST DECREASES SENSITIVITY FOR DETECTION OF FOCAL LESIONS AND VASCULAR PATHOLOGY. LOWER THORAX: Unremarkable. LIVER: Mild loss of signal in the liver on out of phase imaging. There are several (at least 8) foci of intermediate T2 hyperintensity with restricted diffusion in both hepatic lobes which measure up to 0.9 cm in segment VII on series [id number] image 26. BILIARY: The gallbladder is distended without gallbladder wall thickening or cholelithiasis. The common bile duct is dilated with a focal transition in the mid common bile duct with an area of abnormal soft tissue which measures approximately 2.1 cm in length. There is additional, abnormal signal in the pancreatic head which measures 4 cm. There is moderate to severe intrahepatic ductal dilation.SPLEEN: 14.4 cm splenomegaly.PANCREAS: Areas and abrupt transition in the main pancreatic duct but no definite pancreatic ductal dilation. The abnormal signal in the pancreatic head measures 4 cm. ADRENALS: No adrenal nodules.KIDNEYS/URETERS: No hydronephrosis or solid mass lesions. PERITONEUM/RETROPERITONEUM: No free fluid.LYMPH NODES: No lymphadenopathy.VESSELS: The main portal vein and portal splenic confluence are at least abutted by the pancreatic head tumor. There is narrowing in this region. GI TRACT: No distention or wall thickening. Diverticulum of the second portion of the duodenum. BONES AND SOFT TISSUES: Mild bilateral gynecomastia. IMPRESSION: 1.The lesions in the liver which are intermediate signal intensity on T2-weighted imaging and restricted diffusion are most likely metastases. This could be confirmed with a MRI of the abdomen with and without intravenous contrast. 2.The mass in the pancreatic head results in marked intra and extrahepatic ductal dilation. There is a pancreatic ductal cutoff but no significant ductal dilation. There is at least abutment of the main portal vein and portosplenic confluence by the pancreatic head tumor, and there is narrowing in this region which suggests the possibility of encasement. This could be better evaluated on a contrast-enhanced examination. 3.Mild diffuse fatty infiltration of the liver Signed: Madhu Deleon MDReport Verified Date/Time: 08/31/2022 09:55:55 Reading Location: [facility] Diagnostic Imaging Reading Room - [place] [address] Urinalysis with Microscopic If [id number] 07:12:10 Test Item Value Reference Range Interpretation Comments Color, UA (test code = Yellow 5778-6) Clarity, UA (test code = Clear 5767-9) Specific [place], UA (test 1.033 1.001-1.035 code = 5811-5) pH, UA (test code = 5.5 5.0-8.0 5803-2) Protein, UA (test code = 20 mg/dL Negative A 12022-1) Glucose, UA (test code = Negative Negative 365) Ketones, UA (test code = Negative Negative 2514-8) Bilirubin, UA (test code = Negative Negative 59486-8) Blood, UA (test code = Negative Negative 93147-5) Nitrite, UA (test code = Negative Negative 5802-4) Leukocytes, UA (test code Negative Negative = 5799-2) Urobilinogen, UA (test 0.2 0.2-1.0 code = 51581-9) Specimen Source (test code = 2795) STEVENSON (test code = STEVENSON) [employer] Instructor ID - [auto][employer] Instructor ID - tech Lab Interpretation (test Abnormal code = 71966-2) [facility] IF [id number] 07:12:10 Test Item Value Reference Range Interpretation Comments COLOR (BEAKER) (test code = 470) Yellow CLARITY (BEAKER) (test code = 469) Clear SPECIFIC GRAVITY UA (BEAKER) (test 1.033 1.001-1.035 code = 468) PH UA (BEAKER) (test code = 467) 5.5 5.0-8.0 PROTEIN UA (BEAKER) (test code = 20 mg/dL Negative A 464) GLUCOSE UA (BEAKER) (test code = Negative Negative 365) KETONES UA (BEAKER) (test code = Negative Negative 371) BILIRUBIN UA (BEAKER) (test code = Negative Negative 462) BLOOD UA (BEAKER) (test code = 461) Negative Negative NITRITE UA (BEAKER) (test code = Negative Negative 465) LEUKOCYTE ESTERASE UA (BEAKER) (test Negative Negative code = 466) UROBILINOGEN UA (BEAKER) (test code 0.2 0.2-1.0 = 463) SOURCE(BEAKER) (test code = 2795) [employer] Instructor ID - [auto][employer] Instructor ID - techUrinalysis Microscopic [id number] 07:11:42 Test Item Value Reference Range Interpretation Comments RBC, UA (test code = 1 See_Comment [Autom ated 14646-8) message] The system which generated this result transmitted reference range : /HPF. The reference range was not used to interpret this result as normal/abnormal . WBC, UA (test code = 1 See_Comment [Autom ated 5821-4) message] The system which generated this result transmitted reference range : /HPF. The reference range was not used to interpret this result as normal/abnormal . Crystals, Urine (test Occasional None Seen A code = 92067-6) STEVENSON (test code = STEVENSON) [employer] Instructor ID - tech Lab Interpretation Abnormal (test code = 54006-9) [facility] [id number] 07:11:42 Test Item Value Reference Range Interpretation Comments RBC UA (BEAKER) (test code = 519) 1 /HPF WBC UA (BEAKER) (test code = 520) 1 /HPF CRYSTALS, URINE (BEAKER) (test Occasional None Seen A code = 1521) [employer] Instructor ID - techCOMPREHENSIVE METABOLIC [id number] 04:25:49 Test Item Value Reference Range Interpretation Comments TOTAL PROTEIN 7.5 gm/dL 6.0-8.3 (BEAKER) (test code = 770) ALBUMIN (BEAKER) 3.7 g/dL 3.5-5.0 (test code = 1145) ALKALINE 276 U/L 40-150 H PHOSPHATASE (BEAKER) (test code = 346) BILIRUBIN TOTAL 1.5 mg/dL 0.2-1.2 H (BEAKER) (test code = 377) SODIUM (BEAKER) 136 meq/L 136-145 (test code = 381) POTASSIUM (BEAKER) 4.0 meq/L 3.5-5.1 (test code = 379) CHLORIDE (BEAKER) 101 meq/L 98-107 (test code = 382) CO2 (BEAKER) (test 23 meq/L 22-29 code = 355) BLOOD UREA 12 mg/dL 7-21 NITROGEN (BEAKER) (test code = 354) CREATININE 0.93 mg/dL 0.57-1.25 (BEAKER) (test code = 358) GLUCOSE RANDOM 83 mg/dL 70-105 (BEAKER) (test code = 652) CALCIUM (BEAKER) 9.1 mg/dL 8.4-10.2 (test code = 697) AST (SGOT) 83 U/L 5-34 H (BEAKER) (test code = 353) ALT (SGPT) 188 U/L 6-55 H (BEAKER) (test code = 347) EGFR (BEAKER) 99 Interpretatio n of eGFR (test code = 1092) mL/min/1.[address] age Description sq m Result G1 Nighat l or high >=90 G2 Mildly decreased 60-89 G3a Mildl y to moderately 45-5 9 G3b Moderately to s everely 30-44 G4 Severl y decreased 15-29 G5 Kidney failure <15Reported eGF R is based on the CKD-EPI 2020 equation that d oes not use a race coefficientEsti mated GFR is not as accur ate as Creatinine Bessy hartman in predicting glom erular filtration rate . Estimated GFR is not appl icable for dialysis patien ts [employer] Instructor ID - MARCOCBC (HEMOGRAM ONLY)2022-08-30 03:49:43 Test Item Value Reference Range Interpretation Comments WHITE BLOOD CELL COUNT (BEAKER) 11.6 K/ L 3.5-10.5 H (test code = 775) RED BLOOD CELL COUNT (BEAKER) 4.30 M/ L 4.63-6.08 L (test code = 761) HEMOGLOBIN (BEAKER) (test code = 12.2 GM/DL 13.7-17.5 L 410) HEMATOCRIT (BEAKER) (test code = 37.0 % 40.1-51.0 L 411) MEAN CORPUSCULAR VOLUME (BEAKER) 86 fL 79-92 (test code = 753) MEAN CORPUSCULAR HEMOGLOBIN 28.4 pg 25.7-32.2 (BEAKER) (test code = 751) MEAN CORPUSCULAR HEMOGLOBIN CONC 33.0 GM/DL 32.3-36.5 (BEAKER) (test code = 752) RED CELL DISTRIBUTION WIDTH 13.2 % 11.6-14.4 (BEAKER) (test code = 412) PLATELET COUNT (BEAKER) (test 339 K/CU MM 150-450 code = 756) MEAN PLATELET VOLUME (BEAKER) 10.3 fL 9.4-12.4 (test code = 754) NUCLEATED RED BLOOD CELLS 0 /100 WBC 0-0 (BEAKER) (test code = 413)
[2023-07-12 07:20] LABS: Absolute Lymphocytes (CBC) 0.6 K/uL (0.7-4.9); Hematocrit 31.9 % (39.6-49.0); Lymphocytes % 8.7 % (15.3-44.8); MCV 77.7 fL (80-100); MPV 7.6 fL (7.6-11.3); Platelets 234 thou/uL (152-406)
[2023-07-12] MEDS ORDERED: NA CHLORIDE 0.9% 1,000 ML ONE (07:30)
[2023-07-12] MEDS ORDERED: HYDROMORPHONE HCL 2 MG/ML inj ONE (07:30)
[2023-07-12] MEDS ORDERED: ONDANSETRON 4 MG/2 ML VIAL ONE (07:30)
[2023-07-12 07:39] LABS: Protime INR 1.28
[2023-07-12 07:41] LABS: Bilirubin Direct 0.3 mg/dL (0-0.2); Bilirubin Indirect, Calculated 0.4 mg/dL (0.2-0.8); Bilirubin Total 0.7 mg/dL (0.2-1.0); Magnesium 1.7 mg/dL (1.6-2.4); Potassium 4.1 mEq/L (3.5-5.1); Protein, Total 7.7 g/dL (6.4-8.2); Troponin High Sensitivity 3.7 pg/mL (<58.9)
--- NOTE | 2023-07-12 08:11 | RAD REPORT ---
EXAM DESCRIPTION: CTChest Abdomen Pelvis W Cont - 07/12/2023 7:58 am CLINICAL HISTORY: CHEST PAIN COMPARISON: Abdomen Pelvis W Contrast dated 08/29/2022 TECHNIQUE: CT of the chest, abdomen, and pelvis was performed with IV contrast. All CT scans are performed using dose optimization technique as appropriate and may include automated exposure control or mA/KV adjustment according to patient size. FINDINGS: Thorax: Chest Wall: No abnormal mass right upper chest wall Port-A-Cath. Lungs: No acute abnormality. Pleura: No effusions or pneumothorax. [place]/Mediastinum: No lymphadenopathy. Aorta/Pulmonary Arteries: Unremarkable Heart: Normal size. Multi-vessel coronary disease. Abdomen/Pelvis: Liver: Multiple liver lesions which have increased in size. Pneumobilia noted. Biliary: Cholecystostomy tube present. Metallic common bile duct stent. Pneumobilia. Intra and extrah epatic biliary ductal dilatation noted. Stomach: No significant focal abnormality. Duodenum: No significant focal abnormality. Pancreas: Mass at the head of the pancreas has increased in size. That now measures 3.5 cm, previousl y under 2 cm. Pancreatic ductal dilatation. Spleen: No significant abnormality. Adrenal: No suspicious lesions. Kidney/ureter: No hydronephrosis. No renal calculi. Retroperitoneum: No retroperitoneal adenopathy. Vascular: No aneurysm. Occluded portal vein. Bowel: Wall thickening at the transverse and ascending colon probably related to portal hypertension in the setting of portal vein occlusion.. Peritoneum: New lymphadenopathy at the root of the small bowel mesentery. Small volume of free fluid in the pelvis. Normal appendix. Bladder: Grossly unremarkable. Reproductive: No adnexal masses. Bones: No acute fracture. Grade 2 anterolisthesis of L5 on S1. Other: n/a IMPRESSION: 1. Disease progression with local progression of pancreatic neoplasm, new liver lesions, new mesenteric lymphadenopathy, and portal vein occlusion. 2. No acute findings in the chest.
--- NOTE | 2023-07-12 08:13 | RAD REPORT ---
EXAM DESCRIPTION: RAD - Chest Single View - 07/12/2023 8:04 am CLINICAL HISTORY: Cough;Dyspnea COMPARISON: Chest Pa And Lat (2 Views) dated 02/08/2018 FINDINGS: Lines: Right IJ approach Port-A-Cath with tip overlying the distal SVC. Lungs: No evidence of edema or pneumonia. Pleural: No significant pleural effusions or pneumothorax. Cardiac: The heart size is within normal limits. Mediastinum: Within normal limits. Bones: No acute fractures. Other: None IMPRESSION: No acute cardiopulmonary disease.
--- NOTE | 2023-07-12 08:21 | EDPHYS ---
Physician Documentation [facility] Name: Mark Graham Age: 53 yrs Sex: Male : 1970 Arrival Date: 07/12/2023 Time: 06:12 Bed 5 Private MD: Amado Heath HPI: 07/12 06:51 This 53 yrs old Male presents to ER via Wheelchair with complaints of sp4 Vomiting, Chest Pain, Shortness Of Breath. 06:51 53-year-old male with history of GERD, pancreatic cancer, hypertension, currently on sp4 chemotherapy, presents with acute onset chest pain and shortness of breath starting this morning about 3 hours prior to arrival. Patient has chemotherapy port tunneled port to right chest wall.. At this time patient on experimental p.o. chemotherapy. Patient also takes methadone and oxycodone daily for cancer related pain. Patient has biliary drain as well. His cancer is managed at [facility]. Historical: - Allergies: 06:28 No Known Allergies; as6 - PMHx: 06:28 Gastroesophageal reflux disease; Hypertensive disorder; pancreatic cancer; as6 - PSHx: 06:28 Cholecystectomy; as6 - Immunization history:: Adult Immunizations up to date. - Social history:: Smoking status: Patient denies any tobacco usage or history of. - Family history:: not pertinent. ROS: 06:51 Constitutional: Negative for fever, chills, and weight loss, positive chest pain, sp4 positive shortness of breath, positive palpitations and racing heart rate. 06:51 All other systems are negative, Exam: 06:51 Constitutional: This is a well developed, well nourished patient who is awake, alert, sp4 and in mild distress secondary to pain, tachycardic, ill-appearing, generalized pallor, right chest wall tunneled vascular chemotherapy port. Right upper quadrant biliary drain with collection bag in place. Patient is tachycardic ill-appearing but nontoxic-appearing with stable blood pressure. Head/Face: Normocephalic, atraumatic. Eyes: Pupils equal round and reactive to light, extra-ocular motions intact. Lids and lashes normal. Conjunctiva and sclera are not injected. Cornea within normal limits. Periorbital areas with no swelling, redness, or edema. ENT: Nares patent. No nasal discharge, no septal abnormalities noted. Tympanic membranes are normal and external auditory canals are clear. Oropharynx with no redness, swelling, or masses, exudates, or evidence of obstruction, uvula midline. Mucous membranes moist. Neck: Trachea midline, no thyromegaly or masses palpated, and no cervical lymphadenopathy. Supple, full range of motion without nuchal rigidity, or vertebral point tenderness. Chest/axilla: Normal chest wall appearance and motion. Nontender with no deformity. No lesions are appreciated. Cardiovascular: Regular tachycardia with a normal S1 and S2. No gallops, murmurs, or rubs. Normal PMI, no JVD. No pulse deficits. Respiratory: Lungs have equal breath sounds bilaterally, clear to auscultation and percussion. No rales, rhonchi or wheezes noted. No increased work of breathing, no retractions or nasal flaring. Abdomen/GI: Soft, non-tender, with normal bowel sounds. No distension or tympany. No guarding or rebound. No evidence of tenderness throughout. Right upper quadrant biliary drain. Back: No spinal tenderness. No costovertebral tenderness. Skin: Warm, dry with normal turgor. with no rashes, no lesions, and no evidence of cellulitis. Generalized pallor MS/ Extremity: Pulses equal, no cyanosis. Neurovascular intact. Full, normal range of motion. Neuro: Awake and alert, GCS 15, oriented to person, place, time, and situation. Cranial nerves II-XII grossly intact. Motor strength 5/5 in all extremities. Sensory grossly intact. Psych: Awake, alert, with orientation to person, place and time. Behavior, mood, and affect are within normal limits 08:04 ECG was reviewed by the Attending Physician. [facility] Vital Signs: 06:27 BP 124 / 83; Pulse 117; Resp 23 S; Temp 98.8(O); Pulse Ox 100% on R/A; Weight 72.57 kg as6 (R); Height 5 ft. 7 in. (R); Pain 4/10; 07:02 BP 121 / 83; Pulse 92; Resp 17; Pulse Ox 99% on R/A; rs5 08:07 BP 117 / 84; Pulse 98; Resp 17; Pulse Ox 99% on R/A; rs5 09:07 BP 129 / 87; Pulse 101; Resp 17; Pulse Ox 99% on R/A; rs5 06:27 Body Mass Index 25.06 (72.57 kg, 170.18 cm) as6 06:27 Pain Scale: Adult as6 MDM: 06:30 Patient medically screened. sp4 08:05 Differential diagnosis: Nonspecific abd pain, cholecystitis, pancreatitis, arelis appendicitis, diverticulitis, viral gastroenteritis, gastroenteritis. Data reviewed: vital signs, nurses notes, lab test result(s), EKG, radiologic studies, CT scan, plain films. Consideration of Admission/Observation Escalation of care including admission/observation considered. I considered the following discharge prescriptions or medication management in the emergency department Medications were administered in the Emergency Department. See MAR. Independent interpretation of the following test(s) in the Emergency Department EKG: See my EKG interpretation above. Test considered but Not performed: Ultrasound no abd usg. Historians other than the Patient: Spouse/Significant Other: . Care significantly affected by the following chronic conditions: Hypertension, gerd, pancreatic ca. Counseling: I had a detailed discussion with the patient and/or guardian regarding the historical points, exam findings, and any diagnostic results supporting the discharge/admit diagnosis, lab results, radiology results, the need to transfer to another facility, for higher level of care, [facility] does not immediately have the required specialist. 07/12 06:29 Order name: Basic Metabolic Panel; Complete Time: 07:51 sp4 07/12 06:29 Order name: CBC with Diff; Complete Time: 07:34 sp4 07/12 06:29 Order name: LFT's; Complete Time: 07:51 sp4 07/12 06:29 Order name: Magnesium; Complete Time: 07:51 sp4 07/12 06:29 Order name: NT PRO-BNP; Complete Time: 07:51 sp4 07/12 06:29 Order name: PT-INR; Complete Time: 07:51 sp4 07/12 06:29 Order name: Troponin HS; Complete Time: 07:51 sp4 07/12 07:35 Order name: Lipase; Complete Time: 08:29 [facility] 07/12 07:35 Order name: SARS-COV-2 Antigen Rapid; Complete Time: 08:50 [facility] 07/12 07:35 Order name: Flu; Complete Time: 08:29 [facility] 07/12 06:30 Order name: CT Chest, Abdomen, Pelvis - W/Contrast; Complete Time: 08:29 sp4 07/12 07:35 Order name: Chest Single View XRAY; Complete Time: 08:29 [facility] 07/12 06:29 Order name: EKG; Complete Time: 06:30 sp4 07/12 06:29 Order name: Cardiac monitoring; Complete Time: 06:32 sp4 07/12 06:29 Order name: EKG - Nurse/Tech; Complete Time: 07:19 sp4 07/12 06:29 Order name: IV Saline Lock; Complete Time: 07:19 sp4 07/12 06:29 Order name: Labs collected and sent; Complete Time: 07:19 sp4 07/12 06:29 Order name: O2 Per Protocol; Complete Time: 06:32 sp4 07/12 06:29 Order name: O2 Sat Monitoring; Complete Time: 06:32 sp4 07/12 07:25 Order name: Labs - recollect needed: Recollect blue top please; Complete Time: 07:31 em1 EC:04 Rate is 110 beats/min. Rhythm is regular. QRS [place] is Normal. GA interval is normal. arelis QRS interval is normal. QT interval is normal. No Q waves. T waves are Normal. No ST changes noted. Clinical impression: Sinus tachycardia and No evidence of ischemia. Interpreted by me. Reviewed by me. Administered Medications: 07:15 Drug: HYDROmorphone IVP 2 mg IVP once Route: IVP; Site: right antecubital; rs5 07:35 Follow up: Response: No adverse reaction; Pain is decreased rs5 07:15 Drug: Ondansetron IVP 4 mg IVP once; over 2 minutes Route: IVP; Site: right antecubital;rs5 07:30 Follow up: Response: No adverse reaction; Nausea is decreased rs5 07:15 Drug: NS 0.9% IV 1000 ml IV at 1 bolus Per protocol; 1000 mL bolus Route: IV; Rate: 1 rs5 bolus; Site: right antecubital; 07:30 Follow up: Response: No adverse reaction rs5 Disposition Summary: 07/12/23 08:19 Transfer Ordered Notes: Transfer Location: Other Acute Care Facility arelis Reason: Higher level of care arelis Condition: Fair arelis Problem: new arelis Symptoms: have improved arelis Accepting Physician: to [facility](07/12/23 10:22) ll1 Diagnosis - Chest pain, unspecified arelis - Epigastric abdominal tenderness arelis - Portal vein thrombosis - occulsion of portal vein, cholecystostomy tube present., arelis pancreatic ductal dilitation, progression of pancreatic mass in size - Anemia due to antineoplastic chemotherapy arelis - Hypo-osmolality and hyponatremia arelis Forms: - Medication Reconciliation Form arelis - SBAR form arelis Signatures: Dispatcher [employer] EDAmado Carpenter MD MD cha Martinez, Eric em1 Valeria Armando RN RN ll1 Valdo Clayton RN RN as6 Pako Ramos RN RN rs5 Sai Ramos MD MD sp4 Corrections: (The following items were deleted from the chart) 08:30 08:19 to [facility] arelis [facility] 10:22 08:[address] [facility]
--- NOTE | 2023-07-12 08:21 | ER ---
Nurse's Notes [facility] Name: Mark Graham Age: 53 yrs Sex: Male : 1970 Arrival Date: 07/12/2023 Time: 06:12 Bed 5 Private MD: Diagnosis: Chest pain, unspecified;Epigastric abdominal tenderness;Portal vein thrombosis-occulsion of portal vein, cholecystostomy tube present., pancreatic ductal dilitation, progression of pancreatic mass in size;Anemia due to antineoplastic chemotherapy;Hypo-osmolality and hyponatremia Presentation: 07/12 06:29 Chief complaint: Patient states: "I feel like my heart is racing and I'm feel like I'm as6 having a hard time breathing". Coronavirus screen: At this time, the client does not indicate any symptoms associated with coronavirus-19. Ebola Screen: No symptoms or risks identified at this time. Risk Assessment: Do you want to hurt yourself or someone else? Patient reports no desire to harm self or others. Onset of symptoms was July 12, 2023 at 04:00. 06:29 Acuity: JAZLYN 2 as6 06:29 Method Of Arrival: Wheelchair as6 06:31 Initial Sepsis Screen: Does the patient meet any 2 criteria? No. Patient's initial as6 sepsis screen is negative. Does the patient have a suspected source of infection? No. Patient's initial sepsis screen is negative. Historical: - Allergies: 06:28 No Known Allergies; as6 - PMHx: 06:28 Gastroesophageal reflux disease; Hypertensive disorder; pancreatic cancer; as6 - PSHx: 06:28 Cholecystectomy; as6 - Immunization history:: Adult Immunizations up to date. - Social history:: Smoking status: Patient denies any tobacco usage or history of. - Family history:: not pertinent. Screenin:05 [facility] ED Fall Risk Assessment (Adult) History of falling in the last 3 months, rs5 including since admission No falls in past 3 months (0 pts) Confusion or Disorientation No (0 pts) Intoxicated or Sedated No (0 pts) Impaired Gait No (0 pts) Mobility Assist Device Used No (0 pt) Altered Elimination No (0 pt) Score/Fall Risk Level 0 - 2 = Low Risk Oriented to surroundings, Maintained a safe environment. Abuse screen: Denies threats or abuse. 07:05 Nutritional screening: No deficits noted. Tuberculosis screening: No symptoms or risk rs5 factors identified. Assessment: 07:05 General: Appears distressed, uncomfortable, Behavior is cooperative, anxious. rs5 07:05 Pain: Complains of pain in chest Pain does not radiate. Pain currently is 6 out of 10 rs5 on a pain scale. Quality of pain is described as aching, sharp, Pain began 2 hours ago. Is continuous. Neuro: Level of Consciousness is awake, alert, obeys commands, Oriented to person, place, time, situation. Cardiovascular: Heart tones S1 S2 present Rhythm is regular. Respiratory: Airway is patent Respiratory effort is even, unlabored, Respiratory pattern is regular, symmetrical, Breath sounds are clear bilaterally. GI: Abdomen is round non-distended, Bowel sounds present X 4 quads. Abd is soft and non tender X 4 quads. Reports nausea, Patient currently denies vomiting. : No signs and/or symptoms were reported regarding the genitourinary system. EENT: No signs and/or symptoms were reported regarding the EENT system. Derm: Skin is intact, Skin is pink, warm \\T\\ dry. Musculoskeletal: Range of motion: intact in all extremities. 08:07 Reassessment: Patient states feeling better. Patient states symptoms have improved. rs5 Pain: Complains of pain in chest Pain does not radiate. Pain currently is 1 out of 10 on a pain scale. Quality of pain is described as aching, Is continuous. Cardiovascular: Rhythm is regular. Respiratory: Airway is patent Respiratory effort is even, unlabored, Respiratory pattern is regular, symmetrical. 09:01 Reassessment: No changes from previously documented assessment. rs5 09:10 Reassessment: Reports given to REENA Saldivar from [facility]. rs5 09:25 Reassessment: Patient and/or family updated on plan of care and expected duration. Pain rs5 level reassessed. Patient is alert, oriented x 3, equal unlabored respirations, skin warm/dry/pink. Vital Signs: 06:27 BP 124 / 83; Pulse 117; Resp 23 S; Temp 98.8(O); Pulse Ox 100% on R/A; Weight 72.57 kg as6 (R); Height 5 ft. 7 in. (R); Pain 4/10; 07:02 BP 121 / 83; Pulse 92; Resp 17; Pulse Ox 99% on R/A; rs5 08:07 BP 117 / 84; Pulse 98; Resp 17; Pulse Ox 99% on R/A; rs5 09:07 BP 129 / 87; Pulse 101; Resp 17; Pulse Ox 99% on R/A; rs5 06:27 Body Mass Index 25.06 (72.57 kg, 170.18 cm) as6 06:27 Pain Scale: Adult as6 ED Course: 06:17 Patient arrived in ED. gm2 06:27 Arm band placed on. as6 06:29 Sai Ramos MD is Attending Physician. sp4 06:31 Triage completed. as6 07:05 Patient has correct armband on for positive identification. Bed in low position. Call rs5 light in reach. Side rails up X2. Adult w/ patient. 07:12 Pako Ramos, RN is Primary Nurse. rs5 07:12 Inserted saline lock: 20 gauge in right antecubital area, using aseptic technique. rs5 Blood collected. 07:34 Attending Physician role handed off by Sai Ramos MD arelis 07:34 Amado [facility] MD is Attending Physician. arelis 07:44 SARS-COV-2 Antigen Rapid Sent. rs5 07:44 Flu Sent. rs5 08:00 CT Chest, Abdomen, Pelvis - W/Contrast In Process Unspecified. EDMS 08:05 Chest Single View XRAY In Process Unspecified. EDMS 10:00 No provider procedures requiring assistance completed. IV discontinued, intact, rs5 bleeding controlled, No redness/swelling at site. Pressure dressing applied. Administered Medications: 07:15 Drug: HYDROmorphone IVP 2 mg IVP once Route: IVP; Site: right antecubital; rs5 07:35 Follow up: Response: No adverse reaction; Pain is decreased rs5 07:15 Drug: Ondansetron IVP 4 mg IVP once; over 2 minutes Route: IVP; Site: right antecubital;rs5 07:30 Follow up: Response: No adverse reaction; Nausea is decreased rs5 07:15 Drug: NS 0.9% IV 1000 ml IV at 1 bolus Per protocol; 1000 mL bolus Route: IV; Rate: 1 rs5 bolus; Site: right antecubital; 07:30 Follow up: Response: No adverse reaction rs5 Medication: 07:35 VIS not applicable for this client. rs5 Outcome: 08:19 ER care complete, transfer ordered by . arelis 10:22 Patient left the ED. ll1 14:35 Discharged to home ambulatory, rs5 14:35 Condition: stable 14:35 Discharge instructions given to patient, family, Signatures: Dispatcher [employer] EDAmado Carpenter MD MD cha Lewis, Lynsay, RN RN ll1 Valdo Clayton RN RN as6 Pako Ramos RN RN rs5 Sai Ramos MD MD sp4 Jerrica Farooq gm2 Corrections: (The following items were deleted from the chart) 14:36 14:35 IV discontinued, intact, bleeding controlled, No redness/swelling at site. rs5 Pressure dressing applied, rs5 14:36 14:35 No provider procedures requiring assistance completed. rs5 rs5
[2023-07-12 08:41] LABS: SARS-CoV-2 Antigen Rapid Res Negative (Negative)
--- NOTE | 2023-07-12 11:55 | EKG ---
Test Date: 2023-07-12 Test Time: 07:11:52 [employer] Developer: SID MEASUREMENT RESULTS: Intervals: Rate: 110 IA: 172 QRSD: 80 QT: 340 QTc: 460 [place]: P: 31 IA: 172 QRS: -12 T: 52 INTERPRETIVE STATEMENTS: Sinus tachycardia Cannot rule out Anterior infarct, age undetermined Abnormal ECG Compared to ECG 02/08/2018 15:50:44 Myocardial infarct finding now present Sinus rhythm no longer present Electronically Signed On 07-12-23 11:55:09 CDT by [place]
[2023-07-13 15:46] VITALS: BP 129/87; TEMP 98.8; O2SAT 99
== END 2023-07-12 10:22 ==
LOC: ER 06:12
DX: R07.9 Chest pain, unspecified (principal); R10.816 Epigastric abdominal tenderness; I81 Portal vein thrombosis; K86.89 Other specified diseases of pancreas; D64.81 Anemia due to antineoplastic chemotherapy; C25.9 Malignant neoplasm of pancreas, unspecified; E87.1 Hypo-osmolality and hyponatremia; Z20.822 Contact with and (suspected) exposure to COVID-19
CPT/HCPCS: 36415; 71045; 71260; 74177; 80048; 80076; 83690; 83735; 83880; 84484; 85025; 85610; 87804; 87811; 93005; J1170; J2405; J7030; Q9967

== ENCOUNTER 2023-08-01 17:12 | Emergency (ER) | payer OTHER, SELFPAY ==
--- OUTSIDE RECORDS SUMMARY | 2023-08-01 17:17 | XMS REPORT | Clinical Summary ---
:1970 Author Organization [facility] MD [facility]ada[facility] Address [address] [place] [address] Care Team Providers Name Role Phone Akila Ko Primary Care Provider Neha Paiz Unavailable Pavel Holman MD Primary Care Provider Loi Coon MD Unavailable Carlton Wooten MD Unavailable Allergies No known active allergies Medications Medication Sig Dispensed Refills Start End Status Date Date polyethylene glycol Take 17 g by 0 Active (GLYCOLAX) 17 mouth daily as 2 gram/dose powder needed. omeprazole Take 1 capsule 0 Acti ve (PriLOSEC) 20 mg (20 mg) by capsule mouth every morning before breakfast. senna (SENOKOT) 8.6 Take 2 tablets 0 Active mg tablet by mouth twice daily. metFORMIN Take 1 tablet 0 Active (GLUCOPHAGE) 500 mg (500 mg) by tablet mouth daily with breakfast. gabapentin Take 1 capsule 0 Acti ve (NEURONTIN) 300 mg (300 mg) by capsuleIndications: mouth 3 neuropathic pain (three) times a day. DULoxetine Take 1 capsule 0 Acti ve (CYMBALTA) 30 mg (30 mg) by capsule mouth daily. pancrelipase (CREON) Take 4 0 Active 6,000-19,000-30,000 capsules units capsule (24,000 Units) by mouth 3 (three) times a day with meals. cholecalciferol, Take 50 mcg by 0 Active vitamin D3, (VITAMIN mouth daily. 3 D3) 2,000 units tab tablet methadone Take 1-2 0 Active (DOLOPHINE) 5 mg tablets (5-10 tablet mg) by mouth 3 (three) times a day. 10 mg in AM, 5 mg in afternoon, 5 mg at night oxyCODONE (OXY-IR) 5 Take 2 0 Active mg capsule capsules (10 mg) by mouth every 6 (six) hours as needed for moderate pain. simethicone Chew 1 tablet 0 Acti ve (MYLICON) 80 mg (80 mg) every chewable tablet 8 (eight) hours as needed for flatulence. irbesartan (AVAPRO) Take 1 tablet 0 Active 300 mg tablet (300 mg) by 3 mouth daily. prochlorperazine Take 1 tablet 30 tablet 3 [...] vomiting (if not responsive to prochlorperazi ne). apixaban (ELIQUIS Take 2 tablets 74 tablet 0 Active STARTER PACK) tablet by mouth twice 3 dose pack 5 mg FOR daily for 7 VTE ONLYIndications: days, then Pulmonary air take 1 tablet embolism by mouth twice daily thereafter. lactulose 20 g/30 mL Take 30 mL (20 200 mL 0 Active soln g) by mouth 2 3 solutionIndications: (two) times a Constipation, not day as needed otherwise specified (constipation) . ciprofloxacin HCl Take 1 tablet 14 tablet 0 Active (Cipro) 500 mg (500 mg) by 3 tabletIndications: mouth twice Intractable daily. abdominal pain INV-() Take 4 184 capsule 0 Ac tive [id number] 100 mg capsules (400 3 023 capsuleIndications: mg) by mouth Malignant neoplasm twice daily of body of pancreas for 21 days. Take with 8 oz of water on empty stomach (no food 2 hours before and 1 hour after dose). HYDROcodone-acetamin as needed. 0 Discontinued ophen (NORCO) 5 2 023 mg-325 mg per tablet irbesartan-hydrochlo Take 1 tablet 0 07/05 Discontinued rothiazide (AVALIDE) by mouth 023 (Therapy 300-12.5 mg per daily. comp leted) tablet morphine (MS CONTIN) TAKE 15MG 0 Discontinued 15 mg ER tablet TABLET BY 3 023 (The rapy MOUTH EVERY complete d) MORNING AND AT NOON AND TAKE 2 X 15MG = 30MG EVERY EVENING FOR 23 DAYS FOR PAIN CONTROL *DO NOT CRUSH* INV-() Take 4 184 capsule 0 Di scontinued [id number] 100 mg capsules (400 3 023 (Reorder) capsuleIndications: mg) by mouth Malignant neoplasm twice daily of body of pancreas for 21 days. Take with 8 oz of water on empty stomach (no food 2 hours before and 1 hour after dose). Active Problems Problem Noted Date Diagnosed Date Hyperkalemia 07/26/2023 Encounter for preprocedural examination 07/25/2023 Chest pain at rest 07/12/2023 Hypertension 07/12/2023 Adenocarcinoma, NOS of pancreas, NOS 07/08/2023 Cancer associated pain 07/08/2023 Abdominal pain, epigastric 07/08/2023 [facility] current use of opiate analgesic 07/08/2023 Malignant neoplasm of body of pancreas 07/05/2023 Encounters Date Type Department Care Team Description 08/01/2023 Telephone Clinical Center for Monae, Fatigue Targeted Therapy Madelin Gaona RN [address] [facility] Main [facility], [place] [address] 07/31/2023 Orders Only Clinical Center for Jen Gallego nt neoplasm Targeted Therapy S of body of pancreas [address] [facility] (Primary Dx) Main [facility], [address] [place] [address] 07/26/2023 Hospital Encounter Clinical and Pavel Holman Maligna nt neoplasm of body of pancreas 4:59 PM [employer] SERVICE TECHNICIAN Translational Research MD Santi hair Disposition: Home - Center 07/26/[address] 11:59 PM Main Bldg, 1st Floor [employer] SERVICE [place] [address] 07/26/2023 Follow-Up Clinical Center for Miri Shepherd Nellie narayanan (Primary Dx); 4:00 PM [employer] SERVICE TECHNICIAN Targeted Therapy MD Loi Adenocarcinoma, NOS of pancr eas, NOS; [address] Malignant neoplasm of body o f pancreas Main Bldg, 11th [place] [address] 07/26/2023 Hospital Encounter Diagnostic Laboratory MuseavrilAdje i Malignant neoplasm of body of pancreas 2:00 PM [employer] SERVICE TECHNICIAN Center , JULIANE Mosqueda Discharge Disposition: Home - [address] 07/26/2023 Main Bldg, Elevator A 4:58 PM [place] [address] 07/26/2023 Orders Only Clinical Center for Shayne, Arnie Maligna nt neoplasm Targeted Therapy H III, PharmD of body of pancreas [address] (Primary Dx) Main Bldg, 11th [place] [address] 07/26/2023 Travel 07/26/2023 Orders Only Clinical Center for Jen Gallego Targeted Therapy S [address] Main Bldg, 11th [place] [address] 07/25/2023 Hospital Encounter Interventional PantPavel, Adeno carcinoma, NOS of pancreas, NOS (Primary Dx); 10:15 AM Radiology Encounter for preprocedural examination BMW SERVICE TECHNICIAN - [address] Zully, Discharge Disposition: Home 07/25/2023 [facility], 4th Remy or Avis Mason PA-C 11:59 PM Elevator T [place] [id number] 07/25/2023 Travel 07/20/2023 Follow-Up Clinical Center for Rosalioei Adenoc arcinoma, NOS of pancreas, NOS (Primary Dx); 2:20 PM CDT Targeted Therapy , JULIANE Mosqueda Secondary malignant neoplasm of liver; [address] Oneal Jesus, Pulmonary embolism, not othe rwise specified; Main Bldg, 11th Floo r Abscess of liver; Elevator C Cholangitis; [place] [address] 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; [phone] Nausea; Cancer associat ed pain; Hyperkalemia 07/20/2023 Hospital Encounter Diagnostic Laboratory Charlie Ulloa, Malignant neoplasm of body of pancreas 12:00 PM Center Discharge Disposition: Home CDT - [address] 07/20/2023 Main Bldg, Elevator [place] 11:59 [place] [address] CDT 07/20/2023 Orders Only Clinical Center for Camejo, Eliz, Targeted Therapy [facility] [address] Main Bldg, 11th [place] [address] 07/20/2023 Travel 07/20/2023 Orders Only Clinical Center for Musethaliawa-Arturo Malign ant neoplasm Targeted Therapy , Jaylin, JITNEY DRIVER of body of pancreas [address] (Primary Dx) Main Bldg, [place] [address] 07/20/2023 Orders Only Clinical Center for Jen Gallego Adenoca rcinoma, NOS Targeted Therapy S of pancreas, NOS [address] (Primary Dx) Main Bldg, 11th [place] [address] 07/20/2023 Orders Only Clinical Center for Jen Gallego Targeted Therapy S [address] Main Bldg, [place] [address] 07/14/2023 Orders Only Clinical Center for Jen Gallego Maligna nt neoplasm of body of pancreas (Primary Dx); Targeted Therapy S Adenocarcinoma, NOS of pancr eas, NOS [address] Main Bldg, 11th [place] [address] 07/13/2023 Ancillary Procedure Image Library Mckayla Infante 8:15 PM CDT [address], [place] [address] 07/13/2023 Ancillary Procedure Image Library Mckayla Infante 8:10 PM CDT [address], [place] [address] 07/13/2023 Ancillary Procedure Image Library Mckayla Infante Canceled 8:05 PM CDT [address], JITNEY DRIVER (Appointment N ot Foley Needed) [place] [address] 07/13/2023 Orders Only Pain Management [facility] Katya, Cancer associated [address] [facility] pain (Primary Dx) Main Bldg, 4th [place] [address] 07/13/2023 Orders Only Clinical Center for Kimberly Arrington Targeted Therapy [facility] [address] [facility] Main dg, 11th [place] [address] 07/13/2023 Orders Only Clinical Center for Arnie Bella Targeted Therapy H III, PharmD [address] [facility] Main dg, 11th [place] [address] 07/12/2023 Hospital Encounter MAIN P06A Mariusz Campbell, Intractable abdominal pain ( Primary Dx); 11:12 AM [address] Tachycardia; CDT - Foley Skip Bernardo, Malignant neoplasm of body o f pancreas; 07/14/2023 [place] [address] Cancer; 1:25 PM T [phone] Cari Marshall MD Constipation, not otherwise specified; PhD Pulmonary air embolism Nataliya Pascual, Discharge Dispo sition: Home 07/12/2023 Travel 07/10/2023 Education Interventional Dillon, Radiology Francie Acosta, MA [address] [facility], 4th [place] [address] 07/06/2023 Hospital Encounter Clinical and Musekiwa-Arturo Adenoca rcinoma, NOS of pancreas, NOS 9:15 AM CDT Jaylin Santiago APRN Dis charge Disposition: Home Center [address] [facility] Main [facility], 2nd [place] [address] 07/06/2023 Hospital Encounter Clinical and Musekiwa-Arturo Maligna nt neoplasm of body of pancreas (Primary Dx) 9:15 AM CDT Jaylin Santiago APRN Discharge Disposition: Home Center Haley Licona [address] Billy Proctor RN Main Bldg, 2nd [place] [address] 07/06/2023 Hospital Encounter Diagnostic Laboratory Antoinette Ulloag, Malignant neoplasm of body of pancreas 8:15 AM CDT Center Discharge Disposition: Home - [address] 07/06/2023 Main Bldg, Elevator A 9:14 [place] [address] 07/06/2023 Orders Only Clinical Center for Jen Gallego Targeted Therapy S [address] Main Bldg, 11th [place] [address] 07/06/2023 Travel 07/05/2023 Follow-Up Clinical Center for Antoinette Ulloag, Malignan t neoplasm of body of pancreas (Primary Dx); 11:30 AM Targeted Therapy Adenocarcinoma, NOS of pancr eas, NOS CDT [address] Main Bldg, 11th [place] [address] 07/05/2023 Documentation Clinical Center for Jen Gallego Targeted Therapy S [address] Main Bldg, 11th [place] [address] 07/05/2023 Orders Only Clinical Center for Musekiwa-Arturo Malign ant neoplasm Targeted Therapy Jaylin APRN of body of pancreas [address] (Primary Dx) Main Bldg, 11th [place] [address] 07/05/2023 Orders Only Clinical Center for Antoinette Ulloag, Malignan t neoplasm Targeted Therapy of body of pancreas [address] (Primary Dx) Main Bldg, 11th [place] [address] 07/05/2023 Travel 07/05/2023 Orders Only Clinical Center for Arnie Bella Targeted Therapy H III, PharmD [address] Main Bldg, 11th [place] [address] 07/04/[address] Imaging Musekiwa-Arturo Adenocarcinoma, NOS 6:35 PM CDT [address] , JULIANE Mosqueda of pancreas, [facility]OS [facility] 7th [place] [address] 07/04/2023 Hospital Encounter Cardiopulmonary Cent er Musekiwa-Arturo Adenocarcinoma, NOS of pancr eas, NOS 10:[address] , Jaylin, JITNEY DRIVER Discharge Disposition: Home CDT - Main Bldg, 6th Floor 07/04/2023 Elevator C 11:59 [place] [address] CDT [phone] 07/04/2023 Hospital Encounter [facility] Melvinthaliawa-Adje i Adenocarcinoma, NOS of pancreas, NOS 8:00 AM CDT - Cardiology , Jaylin, JITNEY DRIVER Discharge Disposition: Home - [address] 07/04/2023 Main Bldg, 2nd Floor 10:47 [place] [address] 07/04/2023 Hospital Encounter Clinical and Musekiwa-Arturo Adenoca rcinoma, NOS of pancreas, NOS 7:00 AM CDT [employer]ational Research , Jaylin, JITNEY DRIVER Discharge Disposition: Home Center [facility], [address] Alexi Chao RN Main Bldg, 1st [place] [address] 07/04/2023 Hospital Encounter Clinical and Musekiwa-Arturo Adenoca rcinoma, NOS of pancreas, NOS 7:00 AM CDT [employer] , Jaylin, JITNEY DRIVER Dis charge Disposition: Home Center [address] Main Bldg, 1st [place] [address] 07/04/2023 Orders Only Clinical Center for Eliz Camejo Targeted Therapy [facility] [address] Main Bldg, 11th [place] [address] 07/04/2023 Orders Only Clinical Center for Arnie Bella Targeted Therapy H III, PharmD [address] Main Bldg, 11th [place] [address] 07/04/2023 Travel 07/03/2023 Orders Only Clinical Center for Jen Gallego rcinoma, NOS Targeted Therapy S of pancreas, NOS [address] (Primary Dx) Main Bldg, 11th [place] [address] 06/30/2023 Orders Only Main Interventional Leila, Radiology HOLLY Pritchett [address] Pavilion Bldg, 3rd [place] [address] 06/28/2023 Orders Only Clinical Center for Jen Gallego rcinoma, NOS Targeted Therapy S of pancreas, NOS [address] (Primary Dx) Main Bldg, 11th [place] [address] 06/20/2023 Documentation Clinical Center for Jen Gallego Targeted Therapy S [address] Main Bldg, 11th [place] [address] 06/12/2023 Ancillary Procedure Image Library Pavel Holman, Cancer 10:40 PM [place] [address] 06/12/2023 Ancillary Procedure Image Library Pavel Holman, Cancer 10:35 PM [place] [address] 06/12/2023 Ancillary Procedure Image Library Pavel Holman, Cancer 10:30 PM [place] [address] 06/12/2023 Ancillary Procedure Image Library Pavel Holman, Cancer 10:25 PM 151Madeleine [place] [address] 06/12/2023 Ancillary Procedure Image Library Pavel Holman, Cancer 10:20 PM Shira Denney MD CDT [place] [id number] 06/08/2023 Orders Only Pain Management Cent er Kera, Chronic pain [address] Reilly MD (Primary Dx) Main Bldg, 4th Floor Elevator A [place] [id number] 06/07/2023 Telemedicine Clinical Center for Miri Shepherd, Adenoca rcinoma, NOS 2:20 PM CDT Targeted Therapy MD Loi of pancreas, NOS [address] Main Bldg, 11th Floo r Elevator C [place] [id number] 05/31/2023 Hospital Encounter Pain Management Cent er Carlton Wooten, Cancer associated pain (Prim eitan Dx); 1:24 PM [facility]T [facility] Adenocarcinoma, NOS of pancr eas, NOS; - Main dg, 4th Floor Abdominal pain, epigastric; 05/31/2023 Elevator A [facility] current use of opi ate analgesic 11:59 [place] [address] Discharge Disposition: Home CDT [phone] 05/31/2023 Follow-Up Gastrointestinal Pavel Holman, Adenocarc inoma, NOS 1:00 PM CDT [place] of pancreas, NOS [address] Main dg, 7th Floor Elevator A [place] [id number] 05/31/2023 Travel 05/30/2023 Hospital Encounter Diagnostic Laboratory Pavel Holman , Adenocarcinoma, NOS of pancreas, NOS 11:48 AM Union Discharge Disposition: Home [facility] 05/30/[address] [facility], Elevator [place] 11:59 [place] [address] CDT 05/29/2023 Lab Requisition [facility] Jamaal Bauman MD Disposition: Home Radha Zambrano MD 05/24/2023 Ancillary Procedure Image Library PantPavel, Cancer 8:00 PM CDT [facility] [place] [address] 05/24/2023 Orders Only Gastrointestinal Ko, Akila, Adenocarcin caroline, NOS [place] HOLLY of pancreas, NOS [address] (Primary Dx) Main Bldg, 7th [place] [address] 05/23/2023 Follow-Up Gastrointestinal Ko, Akila, Adenocarcin caroline, NOS 1:00 PM CDT Center PA of pancreas, NOS [address] Pavel Holman, Main Bldg, 7th [place] [address] 05/23/2023 Travel 05/18/2023 Ancillary Procedure MD Gary Wu Ko, Akila, Ad enocarcinoma, NOS 6:35 AM T [facility] PA of pancreas, NOS [address] [facility] 2nd [place] [address] 05/18/2023 Travel 05/17/2023 Hospital Encounter Diagnostic Laboratory Ko, Akila, Adenocarcinoma, NOS of pancreas, NOS 2:00 PM CDT Center PA Discharge Disposition: Home - [address] 05/17/2023 Main [facility], Elevator A 11:59 [place] [address] CDT 05/17/2023 Office Visit Gastrointestinal Ko, Akila, Adenocarcin caroline, NOS 1:30 PM CDT Center PA of pancreas, NOS [address] (Primary Dx) Main Bldg, 7th [place] [address] 05/17/2023 Travel 05/15/2023 [facility] PATIENT ACCESS 2:00 PM CDT 05/15/2023 Travel 05/15/2023 Orders Only Gastrointestinal Ko, Akila, Adenocarcin caroline, NOS Center PA of pancreas, NOS [address] (Primary Dx) Main Bldg, 7th [place] [address] 05/08/2023 Travel after 08/01/2022 Surgical History Surgery Date Site/Laterality Comments LIPOMA RESECTION on back Medical History Medical History Date Comments Hypertension 2008 Gastric reflux 2008 Pancreatic cancer 08/29/2022 Family History Medical History [...] Sign Reading Time Taken Comments Blood Pressure 116/81 07/26/2023 2:27 PM [employer] SERVICE TECHNICIAN Pulse 105 07/26/2023 2:27 PM [employer] SERVICE TECHNICIAN Temperature 36.9 C (98.4 F) 07/26/2023 2:27 PM [employer] SERVICE TECHNICIAN Respiratory Rate 18 07/26/2023 2:27 PM [employer] SERVICE TECHNICIAN Oxygen Saturation 99% 07/26/2023 2:27 PM [employer] SERVICE TECHNICIAN Inhaled Oxygen Concentration - - Weight 72.8 kg (160 lb 7.9 oz) 07/26/2023 2:27 PM [employer] SERVICE TECHNICIAN Height 166.1 cm (5' 5.39") 07/26/2023 2:27 PM [employer] SERVICE TECHNICIAN Body Mass Index 26.39 07/26/2023 2:27 PM [employer] SERVICE TECHNICIAN Plan of Treatment Date Type Department Care Team Description 08/02/2023 Telemedicine Clinical Center for Channing, 1:00 PM [employer] SERVICE TECHNICIAN Targeted Therapy Jaylin, JULIANE [address] [facility] [address] [facility] [address] [place] [address] [phone] 08/09/2023 Appointment Diagnostic Laboratory Miri Shepherd, 6:30 AM [employer] SERVICE TECHNICIAN Center MD Loi [address] [facility] [address] [facility] [place] [address] [place] [address] 08/15/2023 Ancillary Procedure MD Gary Snell, 1:20 PM [employer] SERVICE TECHNICIAN [address] [facility] Jaylin, JITNEY DRIVER 2nd Floor [address] [place] [address] [place] [address] 08/16/2023 Appointment Cardiopulmonary Cent er TerranceNeris, 8:00 AM [employer] SERVICE TECHNICIAN [address] MICHELLE MosquedaN Main Bldg, 6th Floor [address] [place] [address] [place], [place] [phone] [address] 08/16/2023 Follow-Up Clinical Center for Miri Shepherd, 2:00 PM [employer] SERVICE TECHNICIAN Targeted Therapy MD Loi [address] Bldg, [address] [place] [address] [phone] Health Maintenance Due Date Last Done Comments COVID-19 Vaccination (#1) 1975 Procedures Procedure Name Priority Date/Time Associated Comments Diagnosis URINALYSIS MICROSCOPIC Routine 07/26/2023 2:14 Malignant neopl asm Results for this EXAM PM [employer] SERVICE TECHNICIAN of body of procedure are i n pancreas the results section. .CBC Routine 07/26/2023 2:14 Malignant neoplasm Result s for this PM [employer] SERVICE TECHNICIAN of body of procedure are i n pancreas the results section. THYROID STIMULATING Routine 07/26/2023 2:14 Malignant neoplasm Results for this HORMONE PM [employer] SERVICE TECHNICIAN of body of procedure are i n pancreas the results section. URINALYSIS WITH Routine 07/26/2023 2:14 Malignant neoplasm Res ults for this MICROSCOPIC IF INDICATED PM [employer] SERVICE TECHNICIAN of body of pro cedure are in pancreas the results section. APTT Routine 07/26/2023 2:14 Malignant neoplasm Result s for this PM [employer] SERVICE TECHNICIAN of body of procedure are i n pancreas the results section. PROTHROMBIN TIME Routine 07/26/2023 2:14 Malignant neoplasm Re sults for this PM [employer] SERVICE TECHNICIAN of body of procedure are i n pancreas the results section. LIPASE LEVEL Routine 07/26/2023 2:14 Malignant neoplasm Result s for this PM [employer] SERVICE TECHNICIAN of body of procedure are i n pancreas the results section. AMYLASE LEVEL Routine 07/26/2023 2:14 Malignant neoplasm Resul ts for this PM [employer] SERVICE TECHNICIAN of body of procedure are i n pancreas the results section. PHOSPHORUS LEVEL Routine 07/26/2023 2:14 Malignant neoplasm Re sults for this PM [employer] SERVICE TECHNICIAN of body of procedure are i n pancreas the results section. MAGNESIUM LEVEL Routine 07/26/2023 2:14 Malignant neoplasm Res ults for this PM [employer] SERVICE TECHNICIAN of body of procedure are i n pancreas the results section. URIC ACID Routine 07/26/2023 2:14 Malignant neoplasm Result s for this PM [employer] SERVICE TECHNICIAN of body of procedure are i n pancreas the results section. LACTATE DEHYDROGENASE Routine 07/26/2023 2:14 Malignant neopla sm Results for this PM [employer] SERVICE TECHNICIAN of body of procedure are i n pancreas the results section. COMPLETE BLOOD COUNT W/ Routine 07/26/2023 2:14 Malignant neop lasm Results for this DIFFERENTIAL PM [employer] SERVICE TECHNICIAN of body of procedure are i n pancreas the results section. COMPREHENSIVE METABOLIC Routine 07/26/2023 2:14 Malignant neop lasm Results for this PANEL PM [employer] SERVICE TECHNICIAN of body of procedure are i n pancreas the results section. CARBOHYDRATE ANTIGEN Routine 07/26/2023 2:14 Malignant neoplas m Results for this 19-9 PM [employer] SERVICE TECHNICIAN of body of procedure are i n pancreas the results section. CARCINOEMBRYONIC ANTIGEN Routine 07/26/2023 2:14 Malignant rachel plasm Results for this PM [employer] SERVICE TECHNICIAN of body of procedure are i n pancreas the results section. .CBC Routine 07/20/2023 12:18 Malignant neoplasm Resul ts for this PM CDT of body of procedure are i n pancreas the results section. LIPASE LEVEL Routine 07/20/2023 12:18 Malignant neoplasm Resul ts for this PM CDT of body of procedure are i n pancreas the results section. AMYLASE LEVEL Routine 07/20/2023 12:18 Malignant neoplasm Resu lts for this PM CDT of body of procedure are i n pancreas the results section. PHOSPHORUS LEVEL Routine 07/20/2023 12:18 Malignant neoplasm R esults for this PM CDT of body of procedure are i n pancreas the results section. MAGNESIUM LEVEL Routine 07/20/2023 12:18 Malignant neoplasm Re sults for this PM CDT of body of procedure are i n pancreas the results section. URIC ACID Routine 07/20/2023 12:18 Malignant neoplasm Resul ts for this PM CDT of body of procedure are i n pancreas the results section. LACTATE DEHYDROGENASE Routine 07/20/2023 12:18 Malignant neopl asm Results for this PM CDT of body of procedure are i n pancreas the results section. COMPLETE BLOOD COUNT W/ Routine 07/20/2023 12:18 Malignant rachel plasm Results for this DIFFERENTIAL PM CDT of body of procedure are i n pancreas the results section. COMPREHENSIVE METABOLIC Routine 07/20/2023 12:18 Malignant rachel plasm Results for this PANEL PM CDT of body of procedure are i n pancreas the results section. POC GLUCOSE SCREEN Routine 07/14/2023 9:11 Result s for this AM CDT procedure are i n the results section. POC GLUCOSE SCREEN Routine 07/14/2023 8:10 Result s for this AM CDT procedure are i n the results section. .CBC Routine 07/14/2023 2:46 Results for this AM CDT procedure are i n the results section. COMPREHENSIVE METABOLIC Routine 07/14/2023 2:46 R esults for this PANEL AM CDT procedure are i n the results section. COMPLETE BLOOD COUNT W/ Routine 07/14/2023 2:46 R esults for this DIFFERENTIAL AM CDT procedure are i n the results section. PHOSPHORUS LEVEL Routine 07/14/2023 2:46 Results for this AM CDT procedure are i n the results section. MAGNESIUM LEVEL Routine 07/14/2023 2:46 Results f or this AM CDT procedure are i n the results section. POC GLUCOSE SCREEN Routine 07/13/2023 9:49 Result s for this PM CDT procedure are i n the results section. URINE CULTURE Routine 07/13/2023 7:33 Results for this PM CDT procedure are i n the results section. POC GLUCOSE SCREEN Routine 07/13/2023 6:07 Result s for this PM CDT procedure are i n the results section. ECHOCARDIOGRAM 2D Routine 07/13/2023 4:00 Results for this LIMITED - FOLLOW UP PM CDT procedur e are in the results section. HC PROCALCITONIN (PCT) STAT 07/13/2023 2:23 Re sults for this PM CDT procedure are i n the results section. LACTIC ACID, VENOUS STAT 07/13/2023 2:23 Resul ts for this PM CDT procedure are i n the results section. CT CHEST PULMONARY STAT 07/13/2023 2:11 Result s for this EMBOLISM W CONTRAST PM CDT procedur e are in the results section. POC GLUCOSE SCREEN Routine 07/13/2023 2:10 Result s for this PM CDT procedure are i n the results section. POC GLUCOSE SCREEN Routine 07/13/2023 8:49 Result s for this AM CDT procedure are i n the results section. .CBC Routine 07/13/2023 2:29 Results for this AM CDT procedure are i n the results section. COMPREHENSIVE METABOLIC Routine 07/13/2023 2:29 R esults for this PANEL AM CDT procedure are i n the results section. COMPLETE BLOOD COUNT W/ Routine 07/13/2023 2:29 R esults for this DIFFERENTIAL AM CDT procedure are i n the results section. PHOSPHORUS LEVEL Routine 07/13/2023 2:29 Results for this AM CDT procedure are i n the results section. MAGNESIUM LEVEL Routine 07/13/2023 2:29 Results f or this AM CDT procedure are i n the results section. POC GLUCOSE SCREEN Routine 07/12/2023 3:44 Result s for this PM CDT procedure are i n the results section. OSI CT CHEST ABDOMEN STAT 07/12/2023 2:49 Resu lts for this PELVIS PM CDT procedure are i n the results section. OSI CHEST STAT 07/12/2023 2:32 Cancer Results for this PM CDT procedure are i n the results section. XR ABDOMEN AP Routine 07/12/2023 12:42 Results fo r this PM CDT procedure are i n the results section. BLOOD GAS VENOUS Routine 07/12/2023 12:21 Results for this PM CDT procedure are i n the results section. BLOOD CULTURE STAT 07/12/2023 12:21 Results fo r this PM CDT procedure are i n the results section. XR CHEST 1 VW Routine 07/12/2023 11:55 Results fo r this AM CDT procedure are i n the results section. .CBC Routine 07/12/2023 11:25 Results for this AM CDT procedure are i n the results section. LIPASE LEVEL Routine 07/12/2023 11:25 Results for this AM CDT procedure are i n the results section. AMYLASE LEVEL Routine 07/12/2023 11:25 Results fo r this AM CDT procedure are i n the results section. APTT Routine 07/12/2023 11:25 Results for this AM CDT procedure are i n the results section. PROTHROMBIN TIME Routine 07/12/2023 11:25 Results for this AM CDT procedure are i n the results section. NT PRO BNP Routine 07/12/2023 11:25 Results for this AM CDT procedure are i n the results section. CARDIAC PANEL Routine 07/12/2023 11:25 Results fo r this AM CDT procedure are i n the results section. PHOSPHORUS LEVEL Routine 07/12/2023 11:25 Results for this AM CDT procedure are i n the results section. MAGNESIUM LEVEL Routine 07/12/2023 11:25 Results for this AM CDT procedure are i n the results section. COMPREHENSIVE METABOLIC Routine 07/12/2023 11:25 Results for this PANEL AM CDT procedure are i n the results section. COMPLETE BLOOD COUNT W/ Routine 07/12/2023 11:25 Results for this DIFFERENTIAL AM CDT procedure are i n the results section. EKG, 12-LEAD (PORTABLE) STAT 07/12/2023 EKG, 12-LEAD (PORTABLE) STAT 07/12/2023 DIFFERENTIAL Routine 07/06/2023 11:27 Malignant neoplasm Resul [...] PANEL AM CDT of body of pancreas [facility] Routine 07/05/2023 4:07 Adenocarcinoma, Results for [...] a re in NOS the results section. NGS BLOOD CONTROL Routine 05/17/2023 3:16 Adenocarcinoma, R [...] 10/13/2022 11:44 Cancer Results for this PM [employer] SERVICE TECHNICIAN procedure are i n the results section. OSI CT ABDOMEN Routine 10/13/2022 11:43 Cancer Results f or this PM [employer] SERVICE TECHNICIAN procedure are i n the results section. PATHOLOGY OUTSIDE Routine 09/01/2022 Results fo r this INTERPRETATION procedure are in the results section. after 08/01/2022 Results (ABNORMAL) Urinalysis Microscopic Exam (07/26/2023 2:14 PM [employer] SERVICE TECHNICIAN)Only the most recent of2 resultswithin the time period is included. Analysis Performed At [facility] logist Time Signature Urine Mucous 1+ (A) Not Seen, 07/26/2023 [place] Trace /HPF 3:45 PM [facility] Urine Bacteria Not Seen Not Seen 07/26/2023 [place] MD /HPF 3:45 PM [facility] Urine Squamous Not Seen Not Seen, 07/26/2023 [place] Epithelial OCC, Rare 3:45 PM [facility] Cells /HPF [facility] Urine WBC 9 (H) <=2 /HPF 07/26/2023 [place] 3:45 PM [facility] Urine RBC 24 (H) <=2 /HPF 07/26/2023 [place] 3:45 PM [facility] Urine Hyaline 11 (H) <=2 /LPF 07/26/2023 [place] Casts 3:45 PM [facility] Specimen Anatomical Collection Method Collection Time Receive d Time (Source) Location / / Volume Laterality Urine Voided urine Non-blood 07/26/2023 2:14 PM 2:20 specimen / Unknown Collection / [employer] SERVICE TECHNICIAN PM [employer] SERVICE TECHNICIAN Unknown Jaylin Snell APRN LAB BLOOD ORDERABLES Performing Organization Address City/State/ZIP Code Phon e Number [facility] Unless otherwise noted, [place], [place] [id number] [place] [address] all lab tests performed by: Division of Pathology and Laboratory Medicine [address] (ABNORMAL) .CBC (07/26/2023 2:14 PM [employer] SERVICE TECHNICIAN)Only the most recent of9 resultswithin the time period is included. [facility] gist Method Time Signature White Blood Cell 5.4 4.1 - 07/26/2023 [place] 10.5 K/uL 2:40 PM [facility] Red Blood Cell 3.46 (L) 4.30 - 07/26/2023 [place] 6.04 M/uL 2:40 PM [facility] Hemoglobin 8.7 (L) 13.3 - 07/26/2023 [place] 17.4 g/dL 2:40 PM [facility] Hematocrit 28.9 (L) 39.5 - 07/26/2023 [place] 51.8 % 2:40 PM [facility] Mean Cell Volume 84 82 - 99 07/26/2023 [place] fL 2:40 PM [facility] Mean Cell 25.1 (L) 26.6 - 07/26/2023 [place] Hemoglobin 33.2 pg 2:40 PM [facility] Mean Cell 30.1 (L) 31.1 - 07/26/2023 [place] Hemoglobin 35.2 g/dL 2:40 PM [facility] RDW-SD 50.3 (H) 37.5 - 07/26/2023 [place] MD 49.7 fL 2:40 PM [facility] Red Cell Diameter 16.5 (H) 11.6 - 07/26/2023 [place] Width 15.5 % 2:40 PM [facility] Platelet 163 160 - 397 07/26/2023 [place] K/uL 2:40 PM [facility] Mean Platelet 10.1 9.1 - 07/26/2023 [place] Volume 12.6 fL 2:40 PM [facility] INRBC 0.0 0.0 - 0.1 07/26/2023 [place] MD /100 WBC 2:40 PM [facility] Comment: The INRBC (instrument NRBC) value reflec ts the enumeration of nucleated red blood cells contained i n a 200uL sample of whole blood analyzed by the instrumen t. This value may differ from the NRBC value reported in a manual differential, which is based on a 100 cell differentia l. Neutrophil % 74.7 (H) 43.2 - 72.7 % 07/26/2023 2:40 PM [facility] Lymphocyte % 14.5 (L) 16.8 - 46.2 % 07/26/2023 2:40 PM [facility] Monocyte % 9.3 5.1 - 12.5 % 07/26/2023 2:40 PM [facility] Eosinophil % 0.6 0.4 - 6.3 % 07/26/2023 2:40 PM [facility] Basophil % 0.7 0.2 - 1.4 % 07/26/2023 2:40 PM [facility] IGRE % 0.2 0.1 - 1.5 % 07/26/2023 2:40 PM [facility] Comment: The IGRE% includes Metamyelocyt es, Myelocytes and Promyelocytes. Neutrophil Abs 4.03 1.95 - 7.25 K/uL 07/26/2023 2:40 P M [facility] Lymphocyte Abs 0.78 (L) 1.01 - 3.24 K/uL 07/26/2023 2:40 PM [facility] Monocyte Abs 0.50 0.24 - 0.85 K/uL 07/26/2023 2:40 PM [facility] Eosinophil Abs 0.03 0.02 - 0.50 K/uL 07/26/2023 2:40 PM [facility] Basophil Abs 0.04 0.02 - 0.09 K/uL 07/26/2023 2:40 PM [facility] IG Abs 0.01 0.01 - 0.12 K/uL 07/26/2023 2:40 PM [facility] Specimen Anatomical Collection Method / Collection Time Recei maria isabel Time (Source) Location / Volume Laterality Blood Peripheral blood Venipuncture / 07/26/2023 2:14 2022 2:19 specimen / Unknown Unknown PM [employer] SERVICE TECHNICIAN PM [employer] SERVICE TECHNICIAN Jaylin Snell APRN LAB BLOOD ORDERABLES Performing Organization Address City/State/ZIP Code Phon e Number [facility] Unless otherwise noted, [place] [address] [place] all lab tests performed by: Division of Pathology and Laboratory Medicine [address] (ABNORMAL) Comprehensive Metabolic Panel (07/26/2023 2:14 PM [employer] SERVICE TECHNICIAN)Only the most recent of5 resultswithin the time period is included. athologist Signature Bilirubin Total 0.5 <=1.2 07/26/2023 [place] MD [place] N mg/dL 3:03 PM [facility] Comment: Indocyanine Green (ICG) may cause falsel y elevated bilirubin results. Total and direct bilirubin must not be measured from samples containing indocyanine green. False elevation of total bilirubin can be seen in patients with IgG concentration s above 28 g/L. This result was previously suppressed fr om the chart. Bilirubin Direct 0.2 <=0.3 mg/dL 07/26/2023 3:03 PM T [facility] Comment: Indocyanine Green (ICG) may cause falsel y elevated bilirubin results. Total and direct bilirubin must not be measured from samples containing indocyanine green. This result was previously suppressed fr om the chart. Bilirubin Indirect 0.3 0.0 - 0.9 mg/dL 07/26/2023 3:03 PM [facility] Comment: This result was previously supp ressed from the chart. eGFR 103 >=60 mL/min/1.73 sq. m 07/26/2023 3:03 P M [facility] Comment: The eGFRcr is calculated with the [...] as the abnormalities of kidney structure or fu nction, present for more than 3 months, with implications for health. CKD should be classified by cause, GFR category, and albuminuria category. KDIGO guidelines provide the following GFR categories. Stage / Description / GFR mL/min/1.73 m2 : G1* / Normal or high / >= 90 G2* / Mildly decreased / 60-89 G3a / Mildly to moderately decreased / 4 5-59 G3b / Moderately to severely decreased / 30-44 G4 / Severely decreased / 15-29 G5 / Kidney failure / <15 *In the absence of evidence of kidney da mage, neither G1 nor G2 fulfill criteria for CKD. Tot Protein 6.6 6.4 - 8.3 gm/dL 07/26/2023 3:03 PM [facility] Comment: This result was previously supp ressed from the chart. Calcium Level Total 9.3 8.2 - 10.2 mg/dL 07/26/2023 3: 03 PM [facility] Comment: This result was previously supp ressed from the chart. Alkaline Phosphatase 102 40 - 129 U/L 07/26/2023 3:03 PM [facility] Comment: This result was previously supp ressed from the chart. Albumin Level 3.4 (L) 3.5 - 5.2 gm/dL 07/26/2023 3:03 PM [facility] Comment: This result was previously supp ressed from the chart. AST 20 <=40 U/L 07/26/2023 3:03 PM [facility] MD Marino [facility] Comment: This result was previously supp ressed from the chart. ALT 14 <=41 U/L 07/26/2023 3:03 PM [facility] MD Marino [facility] Comment: This result was previously supp ressed from the chart. Sodium Level 136 136 - 145 mmol/L 07/26/2023 3:03 PM [facility] Comment: This result was previously supp ressed from the chart. Potassium Level 5.0 (H) 3.4 - 4.5 mmol/L 07/26/2023 3:03 P [facility] Comment: This result was previously supp ressed from the chart. Chloride 98 98 - 107 mmol/L 07/26/2023 3:03 PM [facility] Comment: This result was previously supp ressed from the chart. CO2 30 (H) 22 - 29 mmol/L 07/26/2023 3:03 PM [facility] Comment: This result was previously supp ressed from the chart. Anion Gap 8 4 - 14 mmol/L 07/26/2023 3:03 PM [facility] Comment: This result was previously supp ressed from the chart. Creatinine 0.85 0.67 - 1.17 mg/dL 07/26/2023 3:03 PM [facility] Comment: This result was previously supp ressed from the chart. BUN 14 6 - 23 mg/dL 07/26/2023 3:03 PM [facility] Comment: This result was previously supp ressed from the chart. Glucose Level 168 (H) 70 - 99 mg/dL 07/26/2023 3:03 PM [facility] Comment: Effective 04/13/16, the glucose reference intervals have been updated based on [place] Diabetes [employer] guidelines (Standards of Medical Care in Diabetes 2016. Diabetes Care 2016; 39: S13-S22). Fasting blood glucose: Normal: 70-99 mg/dL Impaired fasting glucose (increased risk for diabetes or pre-diabetes): 100-125 mg/dL Diabetes mellitus: >/=126 mg/dL Random blood glucose: Normal: 70-199 mg/dL Note: Random glucose >100 mg/dL is assoc iated with increased risk for diabetes. This result was previously suppressed fr om the chart. Specimen Anatomical Collection Method / Collection Time Recei maria isabel Time (Source) Location / Volume Laterality Blood Peripheral blood Venipuncture / 07/26/2023 2:14 2022 2:19 specimen / Unknown Unknown PM [employer] SERVICE TECHNICIAN PM [employer] SERVICE TECHNICIAN Jaylin Snell APRN LAB BLOOD ORDERABLES Performing Organization Address City/[facility] Phon e Number [facility] Unless otherwise noted, [address] all lab tests performed by: Division of Pathology and Laboratory Medicine [address] (ABNORMAL) aPTT (07/26/2023 2:14 PM [employer] SERVICE TECHNICIAN)Only the most recent of4 resultswithin the time period is included. P athologist Signature Activated PTT 35.6 (H) 24.1 - 07/26/2023 [place] 35.5 3:39 PM [facility] Specimen Anatomical Collection Method / Collection Time Recei maria isabel Time (Source) Location / Volume Laterality Blood Peripheral blood Venipuncture / 07/26/2023 2:14 2022 2:18 specimen / Unknown Unknown PM [employer] SERVICE TECHNICIAN PM [employer] SERVICE TECHNICIAN Jaylin Snell APRN LAB BLOOD ORDERABLES Performing Organization Address City/[facility] Phon e Number [facility] Unless otherwise noted, [address] all lab tests performed by: Division of Pathology and Laboratory Medicine [address] (ABNORMAL) CA 19-9 (07/26/2023 2:14 PM [employer] SERVICE TECHNICIAN)Only the most recent of4 results within the time period is included. P athologist Signature [place] 19-9 13,300.0 <=35.0 07/26/2023 [place] MD [place] (H) U/mL 5:00 PM [facility] Specimen Anatomical Collection Method / Collection Time Recei maria isabel Time (Source) Location / Volume Laterality Blood Peripheral blood Venipuncture / 07/26/2023 2:14 2022 2:19 specimen / Unknown Unknown PM [employer] SERVICE TECHNICIAN PM [employer] SERVICE TECHNICIAN Narrative [place] [facility] - 5:00 PM [employer] SERVICE TECHNICIAN Results greater than 9500 U/mL may not b e reliable due to matrix effect with extended dilution as it exceeds the ceramics machine operator' s recommended limit. Caution should be exercised when interpreting such values and done in conjunction with clinical context. This test is measured by electr ochemiluminescence immunoassay on Opal Yoselin immunoassay analyzers. Results obtained in different methods are not interchangeable. Jaylin Snell APRN LAB BLOOD ORDERABLES Performing Organization Address City/State/ZIP Code Phon e Number [facility] Unless otherwise noted, [place] [address] [place] all lab tests performed by: Division of Pathology and Laboratory Medicine [address] [facility] (ABNORMAL) Urinalysis w/Microscopic if Indicated (07/26/2023 2:14 PM [employer] SERVICE TECHNICIAN)Only the most recent of2 resultswithin the time period is included. [facility] Method Time Signature Urine Appearance Hazy (A) Clear 07/26/2023 [place] 3:01 PM [facility] Urine Color Yellow Colorless, 07/26/2023 [place] Straw, 3:01 PM [facility] Yellow, Dark CANCER Yellow, CENTER Straw-Yellow Urine Specific 1.023 1.003 - 07/26/2023 [place] 1.035 3:01 PM [facility] Urine pH 6.0 5.0 - 9.0 07/26/2023 [place] 3:01 PM [facility] Urine Glucose Negative Negative 07/26/2023 [place] mg/dL 3:01 PM [facility] Urine Ketones Negative Negative 07/26/2023 [place] mg/dL 3:01 PM [facility] Urine Blood Negative Negative 07/26/2023 [place] 3:01 PM [facility] Urine Protein 70 (A) Negative 07/26/2023 [place] mg/dL 3:01 PM [facility] Urine Bilirubin Negative Negative 07/26/2023 [place] 3:01 PM [facility] Urine +1 (A) Negative 07/26/2023 [place] Urobilinogen 3:01 PM [facility] Urine Nitrite Negative Negative 07/26/2023 [place] 3:01 PM [facility] Urine Leukocyte Trace (A) Negative 07/26/2023 [place] Esterase 3:01 PM [facility] Specimen Anatomical Collection Method Collection Time Receive d Time (Source) Location / / Volume Laterality Urine Voided urine Non-blood 07/26/2023 2:14 PM 3 2:20 specimen / Unknown Collection / [employer] SERVICE TECHNICIAN PM [employer] SERVICE TECHNICIAN Unknown Narrative [place] [facility] - 3 3:01 PM [employer] SERVICE TECHNICIAN Some reporting parameters within the Uri nalysis test have changed due to the implementation of new instrumentation in the Main [place], allowing greater sensitivity of measurement. Urinalysis r esults reported by the [facility] Centers using existing instrumentation, as well as Urinalysis testing performed manually or by back-up methodology at the main [facility], will remain relatively unchanged. New reporting parameters and units will now be reported for all campuses. Jaylin Snell APRN URINE ORDERABLES Performing Organization Address City/[facility] Code Phon e Number [facility] Unless otherwise noted, [address] all lab tests performed by: Division of Pathology and Laboratory Medicine [address] (ABNORMAL) Prothrombin Time with INR (07/26/2023 2:14 PM [employer] SERVICE TECHNICIAN)Only the most recent of5 resultswithin the time period is included. [facility] gist Method Time Signature Prothrombin Time 16.1 (H) 11.9 - 07/26/2023 [place] 14.5 3:36 PM [facility] Comment: Repeated and verified International 1.30 (H) 0.87 - 1.12 07/26/2023 3:36 PM [place] MD [place] Normalization Ratio [employer] SERVICE TECHNICIAN CANC[facility] [address] Specimen Anatomical Collection Method / Collection Time Recei maria isabel Time (Source) Location / Volume Laterality Blood Peripheral blood Venipuncture / 07/26/2023 2:14 2022 2:18 specimen / Unknown Unknown PM [employer] SERVICE TECHNICIAN PM [employer] SERVICE TECHNICIAN Jaylin Snell APRN LAB BLOOD ORDERABLES Performing Organization Address City/[facility] Phon e Number [facility] Unless otherwise noted, [address] all lab tests performed by: Division of Pathology and Laboratory Medicine [address] Uric Acid (07/26/2023 2:14 PM [employer] SERVICE TECHNICIAN)Only the most recent of4 resultswithin the time period is included. P athologist Signature Uric Acid 4.3 3.4 - 7.0 07/26/2023 [facility] mg/dL 3:03 PM [facility] Specimen Anatomical Collection Method / Collection Time Recei maria isabel Time (Source) Location / Volume Laterality Blood Peripheral blood Venipuncture / 07/26/2023 2:14 2022 2:19 specimen / Unknown Unknown PM [employer] SERVICE TECHNICIAN PM [employer] SERVICE TECHNICIAN Jaylin Snell APRN LAB BLOOD ORDERABLES Performing Organization Address City/[facility] Phon e Number [facility] Unless otherwise noted, [address] all lab tests performed by: Division of Pathology and Laboratory Medicine [address] TSH (07/26/2023 2:14 PM [employer] SERVICE TECHNICIAN)Only the most recent of2 resultswithin the time period is included. athologist Signature Thyroid 2.81 0.27 - 07/26/2023 [facility] Stimulating 4.20 3:28 PM [facility] Hormone mcunit/mL Specimen Anatomical Collection Method / Collection Time Recei maria isabel Time (Source) Location / Volume Laterality Blood Peripheral blood Venipuncture / 07/26/2023 2:14 2022 2:19 specimen / Unknown Unknown PM [employer] SERVICE TECHNICIAN PM [employer] SERVICE TECHNICIAN Jaylin Snell APRN LAB BLOOD ORDERABLES Performing Organization Address City/[facility] Phon e Number [facility] Unless otherwise noted, [address] all lab tests performed by: Division of Pathology and Laboratory Medicine [address] Phosphorus Level (07/26/2023 2:14 PM [employer] SERVICE TECHNICIAN)Only the most recent of7 resultswithin the time period is included. athologist Signature Phosphorus 3.7 2.5 - 4.5 07/26/2023 [facility] Level mg/dL 3:03 PM [facility] Specimen Anatomical Collection Method / Collection Time Recei maria isabel Time (Source) Location / Volume Laterality Blood Peripheral blood Venipuncture / 07/26/2023 2:14 2022 2:19 specimen / Unknown Unknown PM [employer] SERVICE TECHNICIAN PM [employer] SERVICE TECHNICIAN Jaylni Snell APRN LAB BLOOD ORDERABLES Performing Organization Address City/[facility]/ZIP [facility] Phon e Number [facility] Unless otherwise noted, [address] all lab tests performed by: Division of Pathology and Laboratory Medicine [address] Magnesium Level (07/26/2023 2:14 PM [employer] SERVICE TECHNICIAN)Only the most recent of8 resultswithin the time period is included. athologist Signature Magnesium Level 1.9 1.6 - 2.6 07/26/2023 [place] MD [place] N mg/dL 3:03 PM [facility] Specimen Anatomical Collection Method / Collection Time Recei maria isabel Time (Source) Location / Volume Laterality Blood Peripheral blood Venipuncture / 07/26/2023 2:14 2022 2:19 specimen / Unknown Unknown PM [employer] SERVICE TECHNICIAN PM [employer] SERVICE TECHNICIAN Jaylin Snell APRN LAB BLOOD ORDERABLES Performing Organization Address [facility] Code Phon e Number [facility] Unless otherwise noted, [address] all lab tests performed by: Division of Pathology and Laboratory Medicine [address] (ABNORMAL) Lipase Level (07/26/2023 2:14 PM [employer] SERVICE TECHNICIAN)Only the most recent of5 results within the time period is included. athologist Signature Lipase Level 7 (L) 13 - 60 U/L 07/26/2023 [place] MD [place] 3:03 PM [facility] Specimen Anatomical Collection Method / Collection Time Recei maria isabel Time (Source) Location / Volume Laterality Blood Peripheral blood Venipuncture / 07/26/2023 2:14 2022 2:19 specimen / Unknown Unknown PM [employer] SERVICE TECHNICIAN PM [employer] SERVICE TECHNICIAN Narrative [facility] - 3:03 PM BMW SERVICE TECHNICIAN Reference range established based on [facility] population Jaylinra CarlosavrilAntwanArturo JITNEY DRIVER LAB BLOOD ORDERABLES Performing Organization Address City/[facility] Phon e Number [facility] Unless otherwise noted, [address] all lab tests performed by: Division of Pathology and Laboratory Medicine [address] (ABNORMAL) LDH (07/26/2023 2:14 PM [employer] SERVICE TECHNICIAN)Only the most recent of5 resultswithin the time period is included. P athologist Signature LDH 107 (L) 135 - 225 07/26/2023 [facility] U/L 3:03 PM [facility] Specimen Anatomical Collection Method / Collection Time Recei maria isabel Time (Source) Location / Volume Laterality Blood Peripheral blood Venipuncture / 07/26/2023 2:14 2022 2:19 specimen / Unknown Unknown PM [employer] SERVICE TECHNICIAN PM [employer] SERVICE TECHNICIAN Narrative [facility] - 3:03 PM [employer] SERVICE TECHNICIAN Results greater than 1651 U/L may not be reliable due to matrix effect with extended dilution as it exceeds the ceramics machine operator' s recommended limit. Caution should be exercised when interpreting such values and done in conjunction with clinical context. Jaylin Snell APRN LAB BLOOD ORDERABLES Performing Organization Address City/[facility]/ZIP Code Phon e Number [facility] Unless otherwise noted, [address] all lab tests performed by: Division of Pathology and Laboratory Medicine [facility]5 Jumana Cook (ABNORMAL) CEA (07/26/2023 2:14 PM [employer] SERVICE TECHNICIAN)Only the most recent of3 resultswithin the time period is included. Patholo gist Method Time Signature Carcinoembryonic 36.7 (H) <=3.8 07/26/2023 [facility] ng/mL 3:28 PM [facility] Specimen Anatomical Collection Method / Collection Time Recei maria isabel Time (Source) Location / Volume Laterality Blood Peripheral blood Venipuncture / 07/26/2023 2:14 2022 2:19 specimen / Unknown Unknown PM [employer] SERVICE TECHNICIAN PM [employer] SERVICE TECHNICIAN Narrative [facility] - 3 3:28 PM [employer] SERVICE TECHNICIAN Reference Ranges (age 20-69 years): Non-smoker: 0.0 - 3.8 ng/mL Smoker: 0.0 - 5.5 ng/mL This test is measured by electrochemilum inescence immunoassay on Opal Yoselin immunoassay analyzers. Results obtained in different methods are not interchangeable. Jaylin Snell APRN LAB BLOOD ORDERABLES Performing Organization Address City/[facility]/ZIP [facility] [place] [facility] Unless otherwise noted, [address] all lab tests performed by: Division of Pathology and Laboratory Medicine [address] Amylase Level (07/26/2023 2:14 PM [employer] SERVICE TECHNICIAN)Only the most recent of5 resultswithin the time period is included. P athologist Signature Amylase Level 34 28 - 100 07/26/2023 [place] [facility] 3:03 PM [employer] SERVICE TECHNICIAN [facility] Specimen Anatomical Collection Method / Collection Time Recei maria isabel Time (Source) Location / Volume Laterality Blood Peripheral blood Venipuncture / 07/26/2023 2:14 2022 2:19 specimen / Unknown Unknown PM [employer] SERVICE TECHNICIAN PM [employer] SERVICE TECHNICIAN Jaylin Snell APRN LAB BLOOD ORDERABLES Performing Organization Address City/State/ZIP Code Phon e Number [facility] Unless otherwise noted, [place] [address] [place] all lab tests performed by: Division of Pathology and Laboratory Medicine [address] (ABNORMAL) POC Glucose Screen - Fingerstick (07/14/2023 9:11 AM CDT)Only the most recent of7 resultswithin the time period is included. Analysis Performed At Patho logist Time Signature Glucose Screen 114 (H) 70 - 99 07/14/2023 [place] mg/dL 9:14 AM [facility] POC Sample Capillary 07/14/2023 [place] Type 9:14 AM T [facility] Specimen Anatomical Collection Method Collection Time Receive d Time (Source) Location / / Volume Laterality Blood 07/14/2023 9:11 AM 3 9:14 CDT AM CDT Narrative [facility] - 3 9:14 AM CDT Capillary blood samples, e.g. obtained by fingerstick, may have inaccurate results in patients with d ecreased peripheral blood flow. Method d escription: All results are measured using Electrochemistry test methodology. The glucose in the sample mixes with the reagents on the test strip. The reaction pr oduces an electric current. The amount o f current produced is proportional to the glucose concentration in the blood. All POC Glucose screen test results, inc luding critical values, must be interpreted and evaluated in the context of the patients' clinical findings. It is recommended to confirm any questionable test results by core lab methodology. Skip Bernardo MD POCT ORDERABLES - DEVICE Performing Organization Address City/State/ZIP Code Phon e Number [facility] Unless otherwise noted, [address] all lab tests performed by: Division of Pathology and Laboratory Medicine [facility] [facility] U[facility] Culture (07/13/2023 7:33 PM CDT) Analysis Performed At Patho logist Time Signature Urine Culture No Growth. 07/15/2023 [place] 10:47 AM CDT [facility] Specimen Anatomical Collection Method Collection Time Receive d Time (Source) Location / / Volume Laterality Urine (Urine Non-blood 07/13/2023 7:33 PM 9:47 Clean Catch) Collection / CDT PM CDT Unknown Mckayla Infante APRN MICROBIOLOGY - GENERAL ORDER ANUP Performing Organization Address City/State/ZIP Code Phon e Number [facility] Unless otherwise noted, [address] all lab tests performed by: Division of Pathology and Laboratory Medicine [address] [facility] Echocardiogram 2D Limited - Follow Up (07/13/2023 4:00 PM CDT) P athologist Signature EF 57 [facility] Specimen (Source) Anatomical Collection Method Collection Time Re ceived Time Location / / Volume Laterality 07/13/2023 3:47 PM CDT Narrative [facility] - 07/13/2023 4:26 PM CDT Echocardiographic Report Interpretation Summary A complete two-dimensional transthoracic echocardiogram was performed (2D, M- mode, Spectral and color Doppler). The study was technically difficult. Compared to prior study, there is no significant change. Normal left ventricular size and systoli c function. LV ejection fraction calculated using th e bi-plane method of disks is 57 %. Normal global longitudinal peak systolic value. There is no pericardial effusion. Left Ventricle: Normal left ventricular size and systoli c function. There is normal left ventricular wall thickness. LV ejection fraction calculated using the bi-plane method of disks is 57 %. The left ventricular wall motion is normal. I WMSI = 1.00 % Normal = 1 00 Normal GLS. Averagea -19.1% Segments Size X - Cannot 2 - 1-2 small Interpret 1 - Normal Hypokine tic 3 - Akinetic 4 - Dyskinetic3- 5 moderate 5 - Aneurysmal 6-14 large 15-16 diffuse 3D imaginD volumes were not performed in this [facility]. Cardiac Mechanics/Speckle Tracking Imagi ng: Normal global longitudinal peak systolic value. Strain Imaging was performed; GLPS avg = -19.1%. Diastology: Tissue Doppler was not obtained. Right Ventricle: The right ventricle is normal in size an d function. Atria: Atria are normal in size. Mitral Valve: Mild thickening changes are noted. Tricuspid Valve: The tricuspid valve is normal. There is trace tricuspid regurgitation. Right ventricular systolic pressure is normal. Aortic Valve: The aortic valve is trileaflet. The aort ic valve opens well. Pulmonic Valve: The pulmonic valve is not well visualize d. There is no pulmonic valvular stenosis. Great Vessels: The aortic root is normal size. The infe rior vena cava demonstrates normal size and normal respiratory variation. Pericardium/Pleural: There is no pericardial effusion. Preliminary Reviewer Fei Brownlee MD. MMode/2D Measurements IVSd: 0.88 cm LVIDd: 4.3 cm LVIDs: 2.9 cm LVPWd: 0.88 cm FS: 31.7 % Ao root diam: 3.8 cm Ao root area: 11.4 cm2 LA dimension: 2.6 cm LVOT diam: 2.1 cm EDV(MOD-A4C): 127.1 ml ESV(MOD-A4C): 55.3 ml LVOT area: 3.5 cm2 EF(MOD-A4C): 56.5 % EDV(MOD-A2C): 95.0 ml ESV(MOD-A2C): 40.8 ml EDV(MOD-bp): 109.5 ml EF(MOD-A2C): 57.1 % ESV(MOD-bp): 47.5 ml EF(MOD-bp): 56.6 % LAV(MOD-A2C): 34.3 ml EDV (MOD-bp) Index: 61.6 ml/m2 LAV(MOD-A4C): 24.1 ml LAV(MOD-bp): 32.1 ml LAV(MOD-bp) Indexed: 18.0 ml/m2 ESV (MOD-bp) Index: 26.7 ml/m2 RWT: 0.41 cm TAPSE (>1.6): 2.2 cm Doppler Measurements Ao V2 max: 110.9 cm/sec LV V1 max P.1 mmHg Ao max P.9 mmHg LV V1 mean P.8 mmHg Ao V2 mean: 80.4 cm/sec LV V1 max: 100.7 cm/sec Ao mean P.8 mmHg LV V1 mean: 60.7 cm/sec Ao V2 VTI: 17.5 cm LV V1 VTI: 14.3 cm LEATHA(I,D): 2.9 cm2 LEATHA(V,D): 3.2 cm2 SV(LVOT): 50.5 ml PA V2 max: 68.7 cm/sec PA max P.9 mmHg PA V2 mean: 51.9 cm/sec PA mean P.2 mmHg PA V2 VTI: 11.3 cm TR max selene: 216.7 cm/sec RAP systole: 3.0 mmHg TR max P.8 mmHg RVSP(TR): 21.8 mmHg LEATHA Index (I,D): 1.6 LEATHA Index (V,D): 1.8 Dimensionless Index: 0.91 Procedure Note Ryan Stephenson MD - 07/13/2023Formattin g of this note might be different from the original. Echocardiographic Report Interpretation Summary A complete two-dimensional transthoracic echocardiogram was performed (2D, M- mode, Spectral and color Doppler). The study was technically difficult. Compared to prior study, there is no significant change. Normal left ventricular size and systoli c function. LV ejection fraction calculated using th e bi-plane method of disks is 57 %. Normal global longitudinal peak systolic value. There is no pericardial effusion. Left Ventricle: Normal left ventricular size and systoli c function. There is normal left ventricular wall thickness. LV ejection fraction calculated using the bi-plane method of disks is 57 %. The left ventricular wall motion is normal. I WMSI = 1.00 % Normal = 100 Normal GLS. Averagea -19.1% Segments Size X - Cannot 2 - 1-2 small Interpret 1 - Normal Hypokinetic 3 - Alberto netic 4 - Dyskinetic3-5 moderate 5 - Aneurysmal 6-14 large 15-16 diffuse 3D imaginD volumes were not performed in this [facility]. Cardiac Mechanics/Speckle Tracking Imagi ng: Normal global longitudinal peak systolic value. Strain Imaging was performed; GLPS avg = -19.1%. Diastology: Tissue Doppler was not obtained. Right Ventricle: The right ventricle is normal in size an d function. Atria: Atria are normal in size. Mitral Valve: Mild thickening changes are noted. Tricuspid Valve: The tricuspid valve is normal. There is trace tricuspid regurgitation. Right ventricular systolic pressure is normal. Aortic Valve: The aortic valve is trileaflet. The aort ic valve opens well. Pulmonic Valve: The pulmonic valve is not well visualize d. There is no pulmonic valvular stenosis. Great Vessels: The aortic root is normal size. The infe rior vena cava demonstrates normal size and normal respiratory variation. Pericardium/Pleural: There is no pericardial effusion. Preliminary Reviewer Fei Brownlee MD. MMode/2D Measurements IVSd: 0.88 cm LVIDd: 4.3 cm LVIDs: 2.9 cm LVPWd: 0.88 cm FS: 31.7 % Ao root diam: 3.8 cm Ao root area: 11.4 cm2 LA dimension: 2.6 cm LVOT diam: 2.1 cm EDV(MOD-A4C): 127. 1 ml ESV(MOD-A4C): 55.3 ml LVOT area: 3.5 cm2 EF(MOD-A4C): 56. 5 % EDV(MOD-A2C): 95.0 ml ESV(MOD-A2C): 40.8 ml EDV(MOD-bp): 109.5 ml EF(MOD-A2C): 57.1 % ESV(MOD-bp): 47.5 ml EF(MOD-bp): 56.6 % LAV(MOD-A2C): 34.3 ml EDV (MOD-bp) I ndex: 61.6 ml/m2 LAV(MOD-A4C): 24.1 ml LAV(MOD-bp): 32.1 ml LAV(MOD-bp) Indexed: 18.0 ml/m2 ESV (MOD-bp) Index: 26.7 ml/m2 RWT: 0.41 cm TAPSE (>1.6): 2.2 cm Doppler Measurements Ao V2 max: 110.9 cm/sec LV V1 max PG : 4.1 mmHg Ao max P.9 mmHg LV V1 mean P.8 mmHg Ao V2 mean: 80.4 cm/sec LV V1 max: 100.7 cm/sec Ao mean P.8 mmHg LV V1 mean: 60. 7 cm/sec Ao V2 VTI: 17.5 cm LV V1 VTI: 14.3 cm LEATHA(I,D): 2.9 cm2 LEATHA(V,D): 3.2 cm2 SV(LVOT): 50.5 ml PA V2 max: 68.7 cm /sec PA max P.9 mmHg PA V2 mean: 51.9 cm/sec PA mean P.2 mmHg PA V2 VTI: 11.3 cm TR max selene: 216.7 cm/sec RAP systol e: 3.0 mmHg TR max P.8 mmHg RVSP(TR): 21.8 mmHg LEATHA Index (I,D): 1.6 LEATHA Index (V,D): 1.8 Dimensionless Index: 0.91 Ganga Doyle MD CV ECHO ORDERABLES Performing Organization Address City/State/ZIP Code Phon e Number [facility] (ABNORMAL) Procalcitonin (07/13/2023 2:23 PM CDT) P athologist Signature Procalcitonin 0.32 (H) <=0.08 07/13/2023 [place] ng/mL 3:08 PM T [facility] Specimen Anatomical Collection Method / Collection Time Recei maria isabel Time (Source) Location / Volume Laterality Blood Peripheral blood Venipuncture / 07/13/2023 2:23 2022 2:26 specimen / Unknown Unknown PM CDT PM CDT Narrative [facility] - 3:08 PM CDT Procalcitonin > 2.00 ng/mL: Procalcitonin levels above 2.00 ng/mL are highly suggestive of a high risk for systematic bacterial infection/ severe sepsis and/or septic shock. Procalcitonin < 0.50 ng/mL: Procalcitoni n levels below 0.50 ng/mL are at low risk for progression to severe sepsis and/ or septic shock. Procalcitonin (ProCT) between 0.15 and 2 .0 ng/mL do not exclude infection, because localized infections (without systemic signs) may be associated with such low levels. Results greater than 400 ng/mL may not b e reliable due to the matrix effect with extended dilution as it exceeds the ceramics machine operator's recommended limit. Caution should be exercised when interpreting such values and done in conjunction with clin ical context. Mckayla Oh Thoppil JITNEY DRIVER LAB BLOOD ORDERABLES Performing Organization Address City/[facility]/ZIP Code Phon e Number [facility] Unless otherwise noted, [address] all lab tests performed by: Division of Pathology and Laboratory Medicine [address] [place] [address] Lactic Acid, Venous (07/13/2023 2:23 PM CDT) athologist Signature Venous Lactate 0.6 0.5 - 1.6 07/13/2023 [place] mmol/L 2:28 PM [facility] Oxygen FLOW 0.00 % 07/13/2023 [place] Rate/ FiO2 2:28 PM [facility] O2 Therapy Room air 07/13/2023 [place] 2:28 PM [facility] Specimen Anatomical Collection Method / Collection Time Recei maria isabel Time (Source) Location / Volume Laterality Blood Peripheral blood Venipuncture / 07/13/2023 2:23 2022 2:26 specimen / Unknown Unknown PM CDT PM CDT Mckayla Althea Thoppil JITNEY DRIVER LAB BLOOD ORDERABLES Performing Organization Address City/[facility] Phon e Number [facility] Unless otherwise noted, [address] all lab tests performed by: Division of Pathology and Laboratory Medicine [address] [place] [address] CT Chest Pulmonary Embolism with Contrast (07/13/2023 2:11 PM CDT) Anatomical Region Laterality Modality Chest Computed Tomography Specimen (Source) Anatomical Collection Method Collection Time Re ceived Time Location / / Volume Laterality 07/13/2023 2:13 PM CDT Impressions 07/13/2023 2:23 PM CDT 1. Subsegmental pulmonary embolism in the middle lobe without right heart strain, new from the recent CT. 2. Abdominal tumor involvement better evaluated on the recent abdominal CT. ACTIONABLE ITEMS/RECOMMENDATIONS: None. Narrative 07/13/2023 2:23 PM CDT FULL RESULT: Examination: CT CHEST PULMONARY EMBOLISM W CONTRAST on 07/13/2023 2:11 PM. Clinical History: Chest pain at rest Indication: dyspnea, Tachycardia (HR mor e than 100 bpm), D-dimer not done, Dyspnea on exertion, Pulmonary embolism suspected Comparison: 07/04/2023 Technique: CT of the chest is performed using intravenous contrast. Findings: Lungs/Airways/Pleura: Minimal atelectasi s or scarring in the right costophrenic sulcus is new. Overall lung volumes are little lower. Tiny nodule along the minor fissure is unchanged, less than 4 mm. Ti ny nodule along the left major fissure a lso less than 4 mm. No larger or more suspicious nodules. No pleural effusion. Neck/Mediastinum/Nodes/Heart: Cardiac ch addi sizes are normal. No evidence of right heart strain. Mild multivessel coronary calcifications are present. Subsegmental pulmonary atrial filling defect in t he medial middle lobe segment. No other pulmonary atrial filling defects. Small prediaphragmatic and borderline prepericardial lymph nodes are seen again. Upper abdomen: Pancreatic head mass, dhaval iary stent and biliary air are seen again. Multiple hypodense hepatic lesions are seen again presumably metastases. Drainage catheter in the gallbladder. Soft tis deyanira infiltration in the upper mesentery and retroperitoneum presumably tumor involvement. Bones/Soft Tissues: No suspicious bone l esions. Procedure Note Gomez Gibson MD - 07/13/2023Formatt ing of this note might be different from the original. FULL RESULT: Examination: CT CHEST PULMONARY EMBOLISM W CONTRAST on 07/13/2023 2:11 PM. Clinical History: Chest pain at rest Indication: dyspnea, Tachycardia (HR mor e than 100 bpm), D-dimer not done, Dyspnea on exertion, Pulmonary embolism suspected Comparison: 07/04/2023 Technique: CT of the chest is performed using intravenous contrast. Findings: Lungs/Airways/Pleura: Minimal atelectasi s or scarring in the right costophrenic sulcus is new. Overall lung volumes are little lower. Tiny nodule along the minor fissure is unchanged, less than 4 mm. Tiny nodule along the left major fissure also less t pineda 4 mm. No larger or more suspicious nodules. No pleural effusion. Neck/Mediastinum/Nodes/Heart: Cardiac ch addi sizes are normal. No evidence of right heart strain. Mild multivessel coronary calcifications are present. Subsegmental pulmonary atrial filling defect in the medial middle lobe segment. No other pulmonary atrial filling defects. Small prediaphragmatic and borderline prepericardial lymph nodes are seen again. Upper abdomen: Pancreatic head mass, dhaval iary stent and biliary air are seen again. Multiple hypodense hepatic lesions are seen again presumably metastases. Drainage catheter in the gallbladder. Soft tissue infiltration in the upper mesentery and retroperitone um presumably tumor involvement. Bones/Soft Tissues: No suspicious bone l esions. IMPRESSION: 1. Subsegmental pulmonary embolism in th e middle lobe without right heart strain, new from the recent CT. 2. Abdominal tumor involvement better ev aluated on the recent abdominal CT. ACTIONABLE ITEMS/RECOMMENDATIONS: None. Mckayla Infante APRN IMG CT ORDERABLES OSI CT Chest Abdomen Pelvis (07/12/2023 2:49 PM CDT)Only the most recent of3 resultswithin the time period is included. Anatomical Region Laterality Modality Chest, Abdomen, Pelvis Other Specimen (Source) Anatomical Collection Method Collection Time Re ceived Time Location / / Volume Laterality 07/13/2023 3:56 PM CDT Impressions 07/13/2023 4:35 PM CDT No acute findings in the chest. Please refer to CT chest 07/13/2023 revealing a small subsegmental right middle lobe pulmonary embolism. Stable locally advanced primary pancreat ic head cancer and metastatic jejunal small bowel adenopathy compared to CT 07/04/2023. Again seen are multiple hepatic lesions which may be a combination of metastatic disease and abscesses with decrease in the largest lesion in hepatic segment [address] 07/04/2023. Wall thickening of the ascending colon a nd hepatic flexure of the transverse colon with adjacent fat stranding concerning for inflammation as seen on the prior CT. ACTIONABLE ITEMS/RECOMMENDATIONS: See Im pression Narrative 07/13/2023 4:35 PM CDT FULL RESULT: Examination: OSI CT CHEST ABDOMEN PELVIS on 07/12/2023 2:49 PM. Clinical History: Chest pain at rest , m etastatic pancreatic cancer Indication: Further information needed f or treatment decisions (please state in the comment field). Comparison: CT chest, abdomen and pelvis 07/04/[address] chest 07/13/2023. Technique: OSI CT CHEST ABDOMEN PELVIS. Images were obtained at 5 mm slice thickness, limiting evaluation. Findings: CHEST: Lungs and Pleura: Tiny maribeth-fissural nod es on series 201 image 29 are stable. No consolidation. No pleural effusion. Cardiomediastinum: The heart is normal i n size. No pericardial effusion. A right internal jugular chest port catheter terminates at the atriocaval junction. Coronary artery calcifications are present. P lease refer to CT chest 07/13/2023 revea ling a right middle lobe pulmonary embolism, not seen on this examination. Lymph nodes: No mediastinal, hilar or ax illary adenopathy. Mild decrease in anterior diaphragmatic lymph nodes with a jewelry sales representative node at the right cardiophrenic angle on series 301 image 43 measuring 0.8 cm and previously measuring 1.1 cm. ABDOMEN AND PELVIS: Hepatobiliary: Mostly stable bilobar hyp odense lesions which may be from a combination of metastatic disease and abscesses. A jewelry sales representative lesion in the right liver on series 201 image 53 again measur es 1 cm. An ill-defined lesion with thic kened wall in hepatic segment 5 has decreased on series 2 on image 56 measuring 1.9 x 2.1 cm and previously measuring 3.3 x 3 cm. Mild intrahepatic biliary ductal dilatation is similar to the prior exam ination with a prominent segment 5 bile duct on series 201 image 58 which again appears to be in communication with the gallbladder. Metallic common bile duct stanford nt with expected pneumobilia. Decompress ed gallbladder from cholecystostomy tube. Spleen: Splenomegaly measuring 14.6 cm i n longitudinal dimension on series 203 image 63. Pancreas: Stable ill-defined primary franco creatic head tumor on series 201 image 61 measuring 5.4 x 4.3 cm with stable upstream pancreatic ductal dilatation measuring 1 cm. Atrophy of the body and tail. E ncasement of the celiac, left gastric, c ommon hepatic, gastroduodenal arteries and SMA. Encasement/marked narrowing of the portal vein and splenorenal portal confluence and superior mesenteric vein. Aga in seen is tumor infiltration along the duodenum, root of the small bowel mesentery and retroperitoneum. Adrenal Glands: Mild left adrenal gland nodularity is stable. Normal right adrenal gland. Possible tumor abutment of the left adrenal gland. Kidneys, Ureters, Bladder: No hydronephr osis. No suspicious renal lesion. No bladder mass. Gastrointestinal Tract: No obstruction. Similar wall thickening of the hepatic flexure of the transverse colon on series 201 image 64 and ascending colon on image 75 with adjacent fat stranding. Pelvic Organs: The prostate gland is enl arged and measures 4.8 x 4.3 cm, indenting the bladder base. Peritoneum/Retroperitoneum: No ascites. Lymph Nodes: Metastatic peripancreatic a nd jejunal small bowel mesenteric adenopathy is stable with a jewelry sales representative jejunal small bowel mesenteric node on image 66 again measuring 1.7 cm. No retroperitoneal or pelvic adenopathy. MUSCULOSKELETAL: No suspicious skeletal lesion. Procedure Note Muriel Ellison MD - 07/13/2023Formatt ing of this note might be different from the original. FULL RESULT: Examination: OSI CT CHEST ABDOMEN PELVIS on 07/12/2023 2:49 PM. Clinical History: Chest pain at rest , m etastatic pancreatic cancer Indication: Further information needed f or treatment decisions (please state in the comment field). Comparison: CT chest, abdomen and pelvis 07/04/[address] chest 07/13/2023. Technique: OSI CT CHEST ABDOMEN PELVIS. Images were obtained at 5 mm slice thickness, limiting evaluation. Findings: CHEST: Lungs and Pleura: Tiny maribeth-fissural nod es on series 201 image 29 are stable. No consolidation. No pleural effusion. Cardiomediastinum: The heart is normal i n size. No pericardial effusion. A right internal jugular chest port catheter terminates at the atriocaval junction. Coronary artery calcifications are present. Please refer to CT chest 07/13/2023 revealing a right middl e lobe pulmonary embolism, not seen on this examination. Lymph nodes: No mediastinal, hilar or ax illary adenopathy. Mild decrease in anterior diaphragmatic lymph nodes with a jewelry sales representative node at the right cardiophrenic angle on series 301 image 43 measuring 0.8 cm and previously measuring 1.1 cm. ABDOMEN AND PELVIS: Hepatobiliary: Mostly stable bilobar hyp odense lesions which may be from a combination of metastatic disease and abscesses. A jewelry sales representative lesion in the right liver on series 201 image 53 again measures 1 cm. An ill-defined lesion with thickened wall i n hepatic segment 5 has decreased on series 2 on image 56 measuring 1.9 x 2.1 cm and previously measuring 3.3 x 3 cm. Mild intrahepatic biliary ductal dilatation is similar to the prior examination with a prominent segme nt 5 bile duct on series 201 image 58 which again appears to be in communication with the gallbladder. Metallic common bile duct stent with expected pneumobilia. Decompressed gallbladder from cholecystostomy tube. Spleen: Splenomegaly measuring 14.6 cm i n longitudinal dimension on series 203 image 63. Pancreas: Stable ill-defined primary franco creatic head tumor on series 201 image 61 measuring 5.4 x 4.3 cm with stable upstream pancreatic ductal dilatation measuring 1 cm. Atrophy of the body and tail. Encasement of the celiac, left gastric, common hepatic, ga stroduodenal arteries and SMA. Encasement/marked narrowing of the portal vein and splenorenal portal confluence and superior mesenteric vein. Again seen is tumor infiltration along the duodenum, root of the small helga wel mesentery and retroperitoneum. Adrenal Glands: Mild left adrenal gland nodularity is stable. Normal right adrenal gland. Possible tumor abutment of the left adrenal gland. Kidneys, Ureters, Bladder: No hydronephr osis. No suspicious renal lesion. No bladder mass. Gastrointestinal Tract: No obstruction. Similar wall thickening of the hepatic flexure of the transverse colon on series 201 image 64 and ascending colon on image 75 with adjacent fat stranding. Pelvic Organs: The prostate gland is enl arged and measures 4.8 x 4.3 cm, indenting the bladder base. Peritoneum/Retroperitoneum: No ascites. Lymph Nodes: Metastatic peripancreatic a nd jejunal small bowel mesenteric adenopathy is stable with a jewelry sales representative jejunal small bowel mesenteric node on image 66 again measuring 1.7 cm. No retroperitoneal or pelvic adenopathy. MUSCULOSKELETAL: No suspicious skeletal lesion. IMPRESSION: No acute findings in the chest. Please r efer to CT chest 07/13/2023 revealing a small subsegmental right middle lobe pulmonary embolism. Stable locally advanced primary pancreat ic head cancer and metastatic jejunal small bowel adenopathy compared to CT 07/04/2023. Again seen are multiple hepatic lesions which may be a combination of metastatic disease and abscesses with decrease in the largest lesion in hepatic segment [address] 07/04/2023. Wall thickening of the ascending colon a nd hepatic flexure of the transverse colon with adjacent fat stranding concerning for inflammation as seen on the prior CT. ACTIONABLE ITEMS/RECOMMENDATIONS: See Im pression Mckayla Oh Thoppil JITNEY DRIVER IMG OUTSIDE IMAGE ORDERABLES OSI Chest (07/12/2023 2:32 PM CDT) Specimen (Source) Anatomical Location Collection Method / Collectio n Time Received Time / Laterality Volume Narrative Systemgenerated, Documentation - 023 2:33 PM CDT Study acquired at another institution. For comparison only. No MD Gary originated interpretation requested or a vailable. Mckayla Infante APRN IMG OUTSIDE IMAGE ORDERABLES XR Abdomen AP (07/12/2023 12:42 PM CDT) Anatomical Region Laterality Modality Abdomen Digital Radiography Specimen (Source) Anatomical Collection Method Collection Time Re ceived Time Location / / Volume Laterality 07/12/2023 1:07 PM CDT Impressions 07/12/2023 1:10 PM CDT Nonspecific bowel gas pattern Narrative 07/12/2023 1:10 PM CDT FULL RESULT: Examination: XR ABDOMEN AP on 07/12/2023 12:42 PM Clinical History: Intractable abdominal pain Tachycardia Malignant neoplasm of body of pancreas Indication: Abdominal Pain Comparison: CT, 07/04/2023 TECHNIQUE: XR ABDOMEN AP FINDINGS: Nonspecific bowel gas pattern. No gross free intraperitoneal air. Biliary stent, pneumobilia, cholecystost jesus tube noted. No gross suspicious osseous lesions. Procedure Note Kin Perez MD - 07/12/2023Formatting o f this note might be different from the original. FULL RESULT: Examination: XR ABDOMEN AP on 07/12/2023 12:42 PM Clinical History: Intractable abdominal pain Tachycardia Malignant neoplasm of body of pancreas Indication: Abdominal Pain Comparison: CT, 07/04/2023 TECHNIQUE: XR ABDOMEN AP FINDINGS: Nonspecific bowel gas pattern. No gross free intraperitoneal air. Biliary stent, pneumobilia, cholecystost jesus tube noted. No gross suspicious osseous lesions. IMPRESSION: Nonspecific bowel gas pattern Mariusz Campbell MD IMG DIAGNOSTIC IMAGING ORDER ANUP Blood Culture (07/12/2023 12:21 PM CDT) Analysis Performed At Patho logist Time Signature Blood Culture No Growth. 07/17/2023 [place] LEE 1:01 PM CDT [facility] Specimen Anatomical Collection Method / Collection Time Recei maria isabel Time (Source) Location / Volume Laterality Blood Venipuncture / 07/12/2023 12:21 3 (Venipuncture) Unknown PM CDT 12:28 PM CDT Mariusz Campbell MD MICROBIOLOGY - GENERAL ORDER ANUP Performing Organization Address City/State/ZIP Code Phon e Number [facility] CANCER Unless otherwise noted, [address] all lab tests performed by: Division of Pathology and Laboratory Medicine [address] [place] [address] VBG (07/12/2023 12:21 PM CDT) P athologist Signature pH Venous 7.39 7.32 - 07/12/2023 [place] GARY 7.43 12:30 PM CDT [facility] CENTER P CO2 Venous 44.0 41.0 - 07/12/2023 [facility] 51.0 mmHg 12:30 PM CDT [facility] P O2 Venous 49 mmHg 07/12/2023 [facility] 12:30 PM CDT [facility] Bicarbonate 27 21 - 28 07/12/2023 [facility] Venous mmol/L 12:30 PM CDT [facility] Base Excess 1 -2 - 3 07/12/2023 [facility] Venous mmol/L 12:30 PM T [facility] Oxygen 83 % 07/12/2023 [facility] Saturation 12:30 PM T [facility] Venous Oxygen FLOW 07/12/2023 [facility] Rate/ FiO2 12:30 PM T [facility] O2 Therapy 07/12/2023 [facility] 12:30 PM T [facility] Specimen Anatomical Collection Method / Collection Time Recei maria isabel Time (Source) Location / Volume Laterality Blood Peripheral blood Venipuncture / 07/12/2023 12:21 07/12 specimen / Unknown Unknown PM CDT 12:28 PM CDT Mariusz Campbell MD LAB BLOOD ORDERABLES Performing Organization Address City/[facility] Phon e Number [facility] Unless otherwise noted, [address] all lab tests performed by: Division of Pathology and Laboratory Medicine [address] [place] [address] X-ray Chest 1 View (07/12/2023 11:55 AM CDT) Anatomical Region Laterality Modality Chest Digital Radiography Specimen (Source) Anatomical Collection Method Collection Time Re ceived Time Location / / Volume Laterality 07/12/2023 12:08 PM CDT Impressions 07/12/2023 12:13 PM CDT No acute disease in the chest. ACTIONABLE ITEMS/RECOMMENDATIONS: None. Narrative 07/12/2023 12:13 PM CDT FULL RESULT: Examination: XR CHEST 1 VW on 07/12/2023 11:55 AM. Clinical History: Intractable abdominal pain, tachycardia, malignant neoplasm of body of pancreas, left chest pain, dyspnea. Indication: Other:, Chest pain/Shortness of Breath Comparison: CT chest 07/04/2023. Technique: Frontal radiograph of the jovanna st Findings: Support Apparatus: Right Port-A-Cath wit h tip overlying atriocaval junction. Lungs/Pleura/Mediastinum: Lungs are claudine r. No pneumothorax. Heart is normal in size. Procedure Note Jared Willis MD - 07/12/2023 FULL RESULT: Examination: XR CHEST 1 VW on 07/12/2023 11:55 AM. Clinical History: Intractable abdominal pain, tachycardia, malignant neoplasm of body of pancreas, left chest pain, dyspnea. Indication: Other:, Chest pain/Shortness of Breath Comparison: CT chest 07/04/2023. Technique: Frontal radiograph of the jovanna st Findings: Support Apparatus: Right Port-A-Cath wit h tip overlying atriocaval junction. Lungs/Pleura/Mediastinum: Lungs are claudine r. No pneumothorax. Heart is normal in size. IMPRESSION: No acute disease in the chest. ACTIONABLE ITEMS/RECOMMENDATIONS: None. Nataliya Pascual MD IM DIAGNOSTIC IMAGING ORDER ANUP (ABNORMAL) Cardiac Panel (07/12/2023 11:25 AM CDT) P athologist Signature Creatine 28 (L) 39 - 308 07/12/2023 [place] Kinase U/L 2:58 PM [facility][NOTE 3] CANCER [place] CKMB <2.0 <=10.4 07/12/2023 [place] ng/mL 2:58 PM [facility] Troponin T <6 <=19 ng/L 07/12/2023 [place] 2:58 PM [facility][NOTE 3] CANCER CENTER Comment: < 19 ng/L Suggest retest at 3 to 6 hours later to rule out myocardial infarction >= 19 to <=52 ng/L Possible myocardial i njury. Suggest retest at 3 hours. - a change of < 20 ng/L, retest at 6 hours - a change of >= 20 ng/L, suggestive of myocardial infarction > 52 ng/L Suggestive of myocardial infar ction Critical value will be reported when cTn T is > 52 ng/L and only reported for the first in a series. Hemolyzed specimens with Hemolysis Index >100 (100 mg/dl or moderate hemolysis) may cause interferences and falsely low results. This result was previously suppressed fr om the chart. Specimen Anatomical Collection Method / Collection Time Recei maria isabel Time (Source) Location / Volume Laterality Blood Peripheral blood Venipuncture / 07/12/2023 11:25 07/12 specimen / Unknown Unknown AM CDT 11:39 AM CDT Nataliya Pascual MD LAB BLOOD ORDERABLES Performing Organization Address City/[facility] Phon e Number [facility] CANCER Unless otherwise noted, [address] all lab tests performed by: Division of Pathology and Laboratory Medicine [address] NT-Pro BNP (In-House) (07/12/2023 11:25 AM CDT) athologist Signature NT-ProBNP <36 <=125 pg/mL 07/12/2023 [facility] 12:35 PM CDT CANCER CENTER Specimen Anatomical Collection Method / Collection Time Recei maria isabel Time (Source) Location / Volume Laterality Blood Peripheral blood Venipuncture / 07/12/2023 11:25 07/12 specimen / Unknown Unknown AM CDT 11:39 AM CDT Nataliya Pascual MD LAB BLOOD ORDERABLES Performing Organization Address [facility] Phon e Number [facility] CAN[facility]ER Unless otherwise noted, [address] all lab tests performed by: Division of Pathology and Laboratory Medicine [address] EKG, 12-Lead (07/12/2023)Only the most recent of2 resultswithin the time period is included. Specimen (Source) Anatomical Location Collection Method / Collectio n Time Received Time / Laterality Volume Narrative This result has an attachment that is no t available. Aamir BARRERA ECG ORDERABLES Performing Organization Address [facility] Phon e Number JACKELINE IECG .Serum Creatinine (07/06/2023 11:27 AM CDT)Only the most recent of4 results within the time period is included. athologist Signature Creatinine 0.70 0.67 - 1.17 [facility] mg/dL DIAGNOSTIC CENTER Specimen Anatomical Collection Method Collection Time Receive d Time (Source) Location / / Volume Laterality Blood 07/06/2023 11:27 07/06/2023 AM CDT 11:46 AM CDT Charile Ulloa MD LAB BLOOD ORDERABLES Performing Organization Address City/State/[facility] Code Phon e Number [place] [facility] Unless otherwise noted, [place] [phone] [address] all lab tests performed by: Division of Pathology and Laboratory Medicine [address] Glomerular Filtration Rate (07/06/2023 11:27 AM CDT)Only the most recent of4 resultswithin the time period is included. P athologist Signature eGFR 109 >=60 [place] MD [place] mL/min/1.73 DIAGNOSTIC sq. m CENTER Comment: The [...] Organization Address City/State/ZIP Code Phon e Number [facility] DIAGNOSTIC Unless otherwise noted, [place] [phone] [place] all lab tests performed by: Division of Pathology and Laboratory Medicine [address] Fractionated Bilirubin (07/06/2023 11:27 AM CDT)Only the most recent of4 results within the time period is included. [facility] Bili Total 0.6 <=1.2 mg/dL [facility] DIAGNOSTIC CENTER Comment: Indocyanine Green (ICG) may cause falsel y elevated bilirubin results. Total and direct bilirubin must not be measured from samples containing indocyanine green. False elevation of total bilirubin can b e seen in patients with IgG concentrations above 28 g/L. Bili Direct 0.2 <=0.3 mg/dL [facility] D IAGNOSTIC CENTER Comment: Indocyanine Green (ICG) may cau se falsely elevated bilirubin results. Total and direct bilirubin must not be measure d from samples containing indocyanine green. Bili Indirect 0.4 0.0 - 0.9 mg/dL [place] MD [facility] Specimen Anatomical Collection Method Collection Time Receive d Time (Source) Location / / Volume Laterality Blood 07/06/2023 11:27 07/06/2023 AM CDT 11:46 AM CDT Charlie Ulloa MD LAB BLOOD ORDERABLES Performing Organization Address City/State/ZIP Code Phon e Number [facility] DIAGNOSTIC Unless otherwise noted, [place], [place] [address] CENTER all lab tests performed by: Division of Pathology and Laboratory Medicine [address] (ABNORMAL) Differential (07/06/2023 11:27 AM CDT)Only the most recent of4 resultswithin the time period is included. athologist [facility] Neutrophil % 80.3 (H) 43.2 - [facility] 72.7 % DIAGNOSTIC CENTER Lymphocyte % 10.6 (L) 16.8 - [facility] 46.2 % DIAGNOSTIC CENTER Monocyte % 8.3 5.1 - 12.5 [facility]IC CENTER Eosinophil % 0.2 (L) 0.4 - 6.3 [facility] % DIAGNOSTIC CENTER Basophil % 0.3 0.2 - 1.4 [facility] % DIAGNOSTIC CENTER IGRE % 0.3 0.1 - 1.5 [facility] % DIAGNOSTIC CENTER Comment: IGRE % count includes Metamyelo cytes, Myelocytes, and Promyelocytes. Neutrophil Abs 7.85 (H) 1.95 - 7.25 K/uL [place] MD VICKI [facility] [facility] Lymphocyte Abs 1.04 1.01 - 3.24 K/uL [place] [facility]ENTER Monocyte Abs 0.81 0.24 - 0.85 K/uL [place] [facility] Eosinophil Abs 0.02 0.02 - 0.50 K/uL [place] [facility] Basophil Abs 0.03 0.02 - 0.09 K/uL [place] [facility] IG Abs 0.03 0.01 - 0.12 K/uL [place] MD RUBY [facility] Specimen Anatomical Collection Method Collection Time Receive d Time (Source) Location / / Volume Laterality Blood 07/06/2023 11:27 07/06/2023 AM CDT 11:33 AM CDT Charlie Ulloa MD LAB BLOOD ORDERABLES Performing Organization Address City/[facility] Phon e Number [facility] DIAGNOSTIC Unless otherwise noted, [address] all lab tests performed by: Division of Pathology and Laboratory Medicine [address] [place] [address] BUN (07/06/2023 11:27 AM CDT)Only the most recent of4 resultswithin the time period is included. athologist Signature BUN 11 6 - 23 [facility] mg/dL DIAGNOSTIC CENTER Specimen Anatomical Collection Method Collection Time Receive d Time (Source) Location / / Volume Laterality Blood 07/06/2023 11:27 07/06/2023 AM CDT 11:46 AM CDT Charlie Ulloa MD LAB BLOOD ORDERABLES Performing Organization Address City/[facility] Phon e Number [facility] DIAGNOSTIC Unless otherwise noted, [address] all lab tests performed by: Division of Pathology and Laboratory Medicine [address] [place] [address] ALT (07/06/2023 11:27 AM CDT)Only the most recent of4 resultswithin the time period is included. athologist Signature ALT 26 <=41 U/L [facility] Specimen Anatomical Collection Method Collection Time Receive d Time (Source) Location / / Volume Laterality Blood 07/06/2023 11:27 07/06/2023 AM CDT 11:46 AM CDT Charlie Ulloa MD LAB BLOOD ORDERABLES Performing Organization Address City/[facility] Phon e Number [facility] DIAGNOSTIC Unless otherwise noted, [address] all lab tests performed by: Division of Pathology and Laboratory Medicine [address] [place] [address] Aspartate Aminotransferase (07/06/2023 11:27 AM CDT)Only the most recent of4 resultswithin the time period is included. P athologist Signature AST 23 <=40 U/L [facility] Specimen Anatomical Collection Method Collection Time Receive d Time (Source) Location / / Volume Laterality Blood 07/06/2023 11:27 07/06/2023 AM CDT 11:46 AM CDT Charlie Ulloa MD LAB BLOOD ORDERABLES Performing Organization Address City/[facility] Phon e Number [facility] DIAGNOSTIC Unless otherwise noted, [address] all lab tests performed by: Division of Pathology and Laboratory Medicine [address] [place] [address] Total Protein (07/06/2023 11:27 AM CDT)Only the most recent of4 resultswithin the time period is included. athologist [facility] Total Protein 7.6 6.4 - 8.3 [facility] g/dL [facility] Specimen Anatomical Collection Method Collection Time Receive d Time (Source) Location / / Volume Laterality Blood 07/06/2023 11:27 07/06/2023 AM CDT 11:46 AM CDT Charlie Ulloa MD LAB BLOOD ORDERABLES Performing Organization Address City/[facility] Phon e Number [facility] DIAGNOSTIC Unless otherwise noted, [address] all lab tests performed by: Division of Pathology and Laboratory Medicine [address] [place] [address] (ABNORMAL) Alkaline Phosphatase (07/06/2023 11:27 AM CDT)Only the most recent of 4 resultswithin the time period is included. P athologist Signature Alk Phos 161 (H) 40 - 129 [facility] U/L [facility] Specimen Anatomical Collection Method Collection Time Receive d Time (Source) Location / / Volume Laterality Blood 07/06/2023 11:27 07/06/2023 AM CDT 11:46 AM CDT Charlie Ulloa MD LAB BLOOD ORDERABLES Performing Organization Address City/[facility]/ZIP [facility] Phon e Number [facility] DIAGNOSTIC Unless otherwise noted, [address] all lab tests performed by: Division of Pathology and Laboratory Medicine [address] (ABNORMAL) Glucose Level (07/06/2023 11:27 AM CDT)Only the most recent of4 resultswithin the time period is included. P athologist Signature Glucose Level 131 (H) 70 - 99 [facility] mg/dL DIAGNOSTIC CENTER Comment: Effective 04/13/16, the glucose reference intervals have been updated based on [place] [employer] guidelines (Standards of Medical Care [...] Organization Address City/State/ZIP Code Phon e Number [facility] DIAGNOSTIC Unless otherwise noted, [address] all lab tests performed by: Division of Pathology and Laboratory Medicine [address] Calcium Level (07/06/2023 11:27 AM CDT)Only the most recent of4 resultswithin the time period is included. athologist Signature Calcium Lvl 9.7 8.4 - 10.2 [facility] mg/dL DIAGNOSTIC CENTER Specimen Anatomical Collection Method Collection Time Receive d Time (Source) Location / / Volume Laterality Blood 07/06/2023 11:27 07/06/2023 AM CDT 11:46 AM CDT Charlie Ulloa MD LAB BLOOD ORDERABLES Performing Organization Address City/State/ZIP Code Phon e Number [facility] DIAGNOSTIC Unless otherwise noted, [address] all lab tests performed by: Division of Pathology and Laboratory Medicine [address] Albumin Level (07/06/2023 11:27 AM CDT)Only the most recent of4 resultswithin the time period is included. athologist Signature Albumin Lvl 3.7 3.5 - 5.2 [facility] gm/dL DIAGNOSTIC CENTER Specimen Anatomical Collection Method Collection Time Receive d Time (Source) Location / / Volume Laterality Blood 07/06/2023 11:27 07/06/2023 AM CDT 11:46 AM CDT Charlie Ulloa MD LAB BLOOD ORDERABLES Performing Organization Address City/[facility] Phon e Number [facility] DIAGNOSTIC Unless otherwise noted, [address] all lab tests performed by: Division of Pathology and Laboratory Medicine [address] [place] [address] (ABNORMAL) Electrolyte Panel (07/06/2023 11:27 AM CDT)Only the most recent of4 resultswithin the time period is included. athologist Signature Sodium Lvl 133 (L) 136 - 145 [facility] mEq/L DIAGNOSTIC CENTER Potassium Lvl 5.4 (H) 3.5 - 5.1 [facility] mEq/L DI[facility]NOSTIC CENTER Chloride 95 (L) 98 - 107 [facility] mEq/L DIAGNOSTIC CENTER CO2 34 (H) 22 - 29 [facility] mEq/L DIAGNOSTIC CENTER Anion Gap 4 4 - 14 [facility] mEq/L DI[facility]NOSTIC CENTER Specimen Anatomical Collection Method Collection Time Receive d Time (Source) Location / / Volume Laterality Blood 07/06/2023 11:27 07/06/2023 AM CDT 11:46 AM CDT Charlie Ulloa MD LAB BLOOD ORDERABLES Performing Organization Address City/[facility] Phon e Number [facility] DIAGNOSTIC Unless otherwise noted, [address] all lab tests performed by: Division of Pathology and Laboratory Medicine [address] [place] [address] [facility] (07/05/2023 4:07 PM CDT) Anatomical Region Laterality Modality Other Specimen (Source) Anatomical Collection Method Collection Time Re ceived Time Location / / Volume Laterality 07/05/2023 4:09 PM CDT Impressions 07/05/2023 4:09 PM CDT Tumor metrics have been completed. I personally reviewed these images and agree with the tumor metrics. Narrative 07/05/2023 4:09 PM CDT FULL RESULT: Examination: [facility] on 07/05/2023 16:09 PM Indication:Adenocarcinoma, NOS of pancre as, NOS Findings: Tumor metrics have been comple bell. Procedure Note Annabella Orlando MD - 07/05/2023Forma tting of this note might be different from the original. FULL RESULT: Examination: [facility] on 07/05/2023 16:09 PM Indication:Adenocarcinoma, NOS of pancre as, NOS Findings: Tumor metrics have been comple bell. IMPRESSION: Tumor metrics have been completed. I per sonally reviewed these images and agree with the tumor metrics. Jaylin Snell JITNEY DRIVER IMG [facility] ORDERABLES CT Chest Abdomen Pelvis with and [...] increased. ACTIONABLE ITEMS/RECOMMENDATIONS: See Im pression Jaylin Ang-Arturo CARDOZO IMG CT ORDERABLES Echocardiogram 2D Complete (07/04/2023 [...] : 151.6 ml ESV(MOD-A4C): 49.2 ml ESV(MOD-A2C): 6 1.0 ml EF(MOD-A4C): 62.4 % EF(MOD-A2C): 59. 8 % LAV(MOD-A2C): 84.9 ml EDV(MOD-bp): 142.4 ml LAV(MOD-A4C): 27.4 ml ESV(MOD-bp): 57.2 ml LAV(MOD-bp): 48 .8 ml EF(MOD-bp): 59.9 % LAV(MOD-bp) Indexed: 27.2 [...] mmHg LEATHA Index (I,D): 2.3 LEATHA Index (V,D) : 2.2 Dimensionless Index: 0.83 Jaylin Snell APRN CV ECHO ORDERABLES Performing Organization Address City/State/ZIP Code Phon e Number ISCV HIV 1/2 Antigen/Antibody, Fourth Gen W/RFL (07/04/2023 [...] purpose. For additional information please refer to http://education.[employer].Minglebox/fa q/BMU856 (This link is being provided for informa tional/ educational purposes only.) The performance of this assay has not be en clinically validated in patients less than 2 years old. Lab test performed by: Lab Mnemonic: [facility] [address] [id number] GEOFF LARRY MD,PHD. Specimen Anatomical Collection Method Collection Time Receive d Time (Source) Location / / Volume Laterality Blood 07/04/2023 8:30 AM 3 9:08 CDT AM CDT Jaylin Channing CARDOZO LAB BLOOD ORDERABLES Performing Organization Address City/State/ZIP Code Phon e Number [facility] HBV DNA Quant (07/04/2023 8:30 AM CDT) [facility] Time Signature HBV DNA Undetected Undetected [facility] IU/mL [facility] Comment: Result in log IU/mL is Undetected. ADDITIONAL INFORMATIO N The quantification range of this assay i s 10 to 1,000,000,000 IU/mL (1.00 log to 9.00 lo g IU/mL). Testing was performed using the yoselin HBV test ( [employer] with the yoselin [employer] Syste m. Test Performed by: [place] [address] Retail Sales Professional: Martin Saxena M.D. Ph. D.; CLIA# [id number] Specimen Anatomical Collection Method Collection Time Receive d Time (Source) Location / / Volume Laterality Blood 07/04/2023 8:30 AM 3 9:08 CDT AM CDT Jaylin Channing CARDOZO LAB BLOOD ORDERABLES Performing Organization Address City/[facility] Phon e Number [facility] Unless otherwise noted, [place], [place] [id number] [place] [address] all lab tests performed by: Division of Pathology and Laboratory Medicine [address] [place] [address] Hepatitis C Virus Antibody (07/04/2023 8:30 AM CDT)Only the most recent of2 resultswithin the time period is included. [facility] Signature HCVAb. Non Reactive Non Reactive [facility] Comment: Antibody detection in the immunocompromi sed [...] AM 3 8:53 CDT AM CDT Jaylin Channing CARDOZO LAB BLOOD ORDERABLES Performing Organization Address [facility]/ZIP [facility] Phon e Number [facility] Unless otherwise noted, [address] all lab tests performed by: Division of Pathology and Laboratory Medicine [address] [place] [address] Hepatitis B Surface Ag (07/04/2023 8:30 AM CDT)Only the most recent of2 results within the time period is included. Patholo gist Method Time Signature HBsAg. Non Reactive Non Reactive [facility] Specimen Anatomical Collection Method Collection Time Receive d Time (Source) Location / / Volume Laterality Blood 07/04/2023 8:30 AM 3 8:53 CDT AM CDT Jaylin Snell APRN LAB BLOOD ORDERABLES Performing Organization Address [facility] Phon e Number [facility] Unless otherwise noted, [address] all lab tests performed by: Division of Pathology and Laboratory Medicine [address] [place] [address] [place] EKG, 12-Lead (Scheduled) (07/04/2023) Specimen (Source) Anatomical Location Collection Method / Collectio n Time Received Time / Laterality Volume Narrative This result has an attachment that is no t available. Jaylin Snell APRN ECG ORDERABLES Performing Organization Address [facility] Phon e Number JACKELINE GUADALUPE MD NGS Blood Control (05/17/2023 3:16 PM CDT) P athologist Signature Molecular Yes [facility] (Received) Specimen Anatomical Collection Method Collection Time Receive d Time (Source) Location / / Volume Laterality Blood 05/17/2023 3:16 PM 3 9:38 CDT AM CDT Akila BARRERA MDA IP HP MOLECULAR DIAG IF ORDERABLES Performing Organization Address [facility] Phon e Number [facility] Unless otherwise noted, [address] all lab tests performed by: Division of Pathology and Laboratory Medicine [address] Hepatitis B Total Ig Core Ab (SCREENING) (anti-HBc total Ig; HBcAb total Ig) (05/17/2023 3:16 PM CDT) [facility] Method Time Signature HBcAb. Non Reactive Non Reactive [facility] Specimen Anatomical Collection Method Collection Time Receive d Time (Source) Location / / Volume Laterality Blood 05/17/2023 3:16 PM 3 7:12 CDT AM CDT Akila BARRERA LAB BLOOD ORDERABLES Performing Organization Address City/State/ZIP Code Phon e Number [facility] Unless otherwise noted, [address] all lab tests performed by: Division of Pathology and Laboratory Medicine [address] [place] [address] Hepatitis B Surface Antibody (05/17/2023 3:16 PM CDT) [facility] Method Time Signature HBs Ab Non Reactive Non Reactive [facility] Specimen Anatomical Collection Method Collection Time Receive d Time (Source) Location / / Volume Laterality Blood 05/17/2023 3:16 PM 3 7:12 CDT AM CDT Akila BARRERA LAB BLOOD ORDERABLES Performing Organization Address City/State/[facility] Phon e Number [facility] Unless otherwise noted, [address] all lab tests performed by: Division of Pathology and Laboratory Medicine [address] [place] [address] CHEST ABDOMEN (04/21/2023 9:10 AM CDT) Specimen (Source) Anatomical Location Collection Method / Collectio n Time Received Time / Laterality Volume Narrative Systemgenerated, Documentation - 023 9:10 AM CDT Study acquired at another institution. For comparison only. No MD Gary originated interpretation requested or a vailable. Pavel GARCAÍ OUTSIDE IMAGE ORDERABLES OSI CT Brain (03/07/2023 11:43 PM CDT) Specimen (Source) Anatomical Location Collection Method / Collectio n Time Received Time / Laterality Volume Narrative Systemgenerated, Documentation - 023 11:43 PM CDT Study acquired at another institution. For comparison only. No MD Gary originated interpretation requested or a vailable. 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 For comparison only. No MD San originated interpretation requested or a vailable. Pavel GARCÍA OUTSIDE IMAGE ORDERABLES OSI CT Abdomen (10/13/2022 11:43 PM [employer] SERVICE TECHNICIAN) Specimen (Source) Anatomical Location Collection Method / Collectio n Time Received Time / Laterality Volume Narrative Systemgenerated, Documentation - 023 11:43 PM CDT Study acquired at another institution. For comparison only. No Gary originated interpretation requested or a vailable. Pavel GARCÍA OUTSIDE IMAGE ORDERABLES Pathology Outside Interpretation (09/01/2022) Component Value Ref Test Analysis Performed Pathologis t Range Method Time At Signature Materials Accession#, Stained, Block, Unstained Collected Received 05/31/2023 [facility] Received A. 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 (SEE COM MENT) 05/31/2023 at 9:43 AM Comment Recut sections are 05/31/2023 [facility] submitted for 9:43 AM review. CDT Biomarker T: A1 05/31/2023 [facility] Block(s) 9:43 AM CDT Disclaimer "Some tests 05/31/2023 [facility] reported here may 9:43 AM have been CDT developed and performance characteristics determined by [facility] Pathology and Laboratory Medicine. These tests have [...] Organization Address City/State/ZIP Code Phon e Number [facility] [place] [address], [address] after 08/01/2022 Insurance Payer Benefit Plan Subscriber ID Effective Phone Address Typ e / Group Dates [facility] [id number] [address] [place] [place] [address] [place] [address] Advance Directives Code Status Date Activated Date Inactivated Comments Full Code 07/12/2023 1:45 PM 07/14/2023 3:30 PM Code Status Date Activated Date Inactivated Comments Full Code 07/12/2023 1:38 PM 07/12/2023 1:45 PM 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
--- OUTSIDE RECORDS SUMMARY | 2023-08-01 17:20 | XMS REPORT | Continuity of Care Document ---
:1970 Author Organization [facility] t Address [address] [place] [address] Care Team Providers Name Role Phone [id number] Primary Care Physician Unavailable Monae VALLES, Madelin Gaona Attending Clinician Unavailable Jen Gallego Attending Clinician Unavailable POWER CARPENTER Attending Clinician Unavailable Manda LEE, Power Attending Clinician JAYLIN SNELL Attending Clinician Unavailable Jaylin Snell APRN Attending Clinician [phone] Edel Bowie MD, Glenis Attending Clinician GLENIS SAUCEDO Attending Clinician Unavailable Arnie Bella PharmD Attending Clinician Unavailable Avis Andrea PA-C Attending Clinician CHARLIE HODGES Attending Clinician Unavailable Artemio LEE, Charlie Attending Clinician Oneal Jesus MD Attending Clinician [facility]ending Clinician SKIP DIAZ Attending Clinician Unavailable Gerber Campbell MD Attending Clinician Skip Diaz MD Attending Clinician Rolando LEE PhD, Cari Attending Clinician Nataliya Pascual MD Attending Clinician Mckayla Infante APRN Attending Clinician MCKAYLA INFANTE Attending Clinician Unavailable Katya LEE, Vira Attending Clinician Murphy Kimberly Clements Attending Clinician NATALIYA PASCUAL Attending Clinician Unavailable Francie Dillon MA Attending Clinician Monae RN, Haley Proctor Attending Clinician Sarah VALLES, Alexi Chao Attending Clinician Unavailable Annette Dumont Attending Clinician Kera LEE, Tommie Attending Clinician Trena Shirley MD Attending Clinician TRENA SHIRLEY Attending Clinician Unavailable Mitul LEE, Jamaal Ramos Attending Clinician Juan Manuel LEE, Radha Attending Clinician Akila Foley Attending Clinician VANESSA GAYTAN Attending Clinician Unavailable Lukas LEE, Vanessa Galvin Attending Clinician Angela Malone DO Attending Clinician Juan Manuel LEE, Cassie Mazariegos Attending Clinician Merchant LEE, Munir Attending Clinician Sravani Gomez Attending Clinician Morenita LEE, Dilip Chun Attending Clinician Dannie Proctor MD Attending Clinician Wayne LEE, Brenden Salazar Attending Clinician [phone] Samy LEE, Effie Flores Attending Clinician GERBER CAMPBELL Admitting Clinician Unavailable ANGELA MALONE Admitting Clinician Unavailable Payers Payer Name Policy Type Policy Number Effective Date Expiration Date Jonathan MARTINES [facility] [id number] 2021 00:00:00 Problems Condition Condition Condition Status Onset Resolution Last Treating Co mments Source Name Details Category Date Date Treatment Clinician Date Hyperkalem Hyperkalem Disease Active 2022-09 U nivers ia ia 1-08 ity of 00:00: [place] 00 MD Yesenia hendrickson [facility] Encounter Encounter Disease Active 2022-09 Uni vers for for 1-07 ity of preprocedu preprocedu 00:00: [place] r[place] ral 00 examinatio examinatio An derso n n n [facility] Chest pain Chest pain Disease Active 2022-09 U nivers at rest at rest 0-25 ity of 00:00: [place] 00 MD Yesenia hendrickson [facility] Hypertensi Hypertensi Disease Recurre 2022-09 Univers on on nce 0-25 ity of 00:00: [place] 00 MD Yesenia hendrickson [facility] 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 Malignant Malignant Disease Active 2022-09 Uni vers neoplasm neoplasm 0-18 ity of of body of of body of 00:00: [place] pancreas pancreas 00 MD Yesenia hendrickson [facility] SBO (small SBO (small Disease Recurre 2021-[address] bowel bowel nce 2[facility]13 [facility] obstructio obstructio 00:00: dical n) n) 00 Center Pancreatic Pancreatic Disease Active 2021-[address] mass mass 2-13 [facility] 00:00: Medical 00 Center Allergies, Adverse Reactions, Alerts Allergy Allergy Status Severity Reaction(s) Onset Inactive Treating Comm ents Source Name Type Date Date Clinician NO KNOWN Allergy Active [facility] Family History Family Member Diagnosis Comments Start Date Stop Date Source Natural father Brain cancer [facility] [place] [facility] Maternal aunt Pancreatic cancer Univ [facility] [place] [facility] Social History Social Habit Start Date Stop Date Quantity Comments Source History [facility] Sexual orientation [facility] Tobacco use and 2023-05-17 2023-05-17 Former smokeless Uni versity of exposure 00:00:00 00:00:00 tobacco user Jethro Barrientos [facility] Cigarettes smoked 2023-05-17 2023-05-17 Univers ity of current (pack per 00:00:00 00:00:00 [facility] ) - Reported Cancer Ce nter Cigarette 2023-05-17 2023-05-17 University of pack-years 00:00:00 00:00:00 Jethro austin [facility] Tobacco Comment 2023-05-17 2023-05-17 Stop all on my Unive rsity of 00:00:00 00:00:00 own Jethro austin [facility] Alcohol Comment 2023-05-17 2023-05-17 08-29-2022 have Univ ersity of 00:00:00 00:00:00 not drink [facility] Alcohol intake 2022-09-06 2022-09-06 [facility] of [facility] (finding) History of Social 2022-09-06 2022-09-[address] [facility] function 00:00:00 00:00:00 Medical Center History [facility] 2022-08-30 2022-08-[address] [facility] Transport Med 00:00:00 00:00:[address] History [facility] 2022-08-30 2022-08-[address] [facility] Housing Unable to 00:00:00 00:00:00 Medical Center Pay History [facility] 2022-08-30 2022-08-[address] [facility] Housing Places 00:00:00 00:00:00 Medical Ce nter Lived History [facility] 2022-08-30 2022-08-[address] [facility] Housing Homeless 00:00:00 00:00:00 Medical Center Last Year History of tobacco 1986-09-18 2019-10-20 Snuff User Univer sity of use 00:00:00 00:00:00 [facility] Sex Assigned At [address] [facility] 00:00:00 00:[facility]00 Medical Center Smoking Status Start Date Stop Date Source Ex-smoker 2023-05-17 00:00:00 2023-05-17 00:00:00 [facility] [place] [facility] Never smoked tobacco [facility] Medications Ordered Filled Start Stop Current Ordering Indication Dosage Frequency Signature Comments Components Source Medication Medication Date Date Medication? Clinician (SIG) Name Name rodrigue 2022-09 Yes 2{tbl} Take 2 Univers (SENOKOT) 1-08 tablets by ity of 8.6 mg 15:43: mouth Jethro tablet 59 twice [facility] simethicone 2022-09 Yes 80mg Chew 1 Univ ers (MYLICON) 1-08 tablet (80 ity of 80 mg 15:43: mg) every [place] chewable 59 8 (eight) MD tablet hours as Anderso needed for n flatulence Cancer . [facility] pancrelipas 2022-09 Yes [id number] Take 4 Un becca e (CREON) 1-08 capsules ity of 6,000-19,00 15:43: (24,000 Shahid as 0-30,000 25 Units) by MD units mouth 3 Anderso capsule (three) n times a Cancer day with Center meals. omeprazole 2022-09 Yes 20mg Take 1 Unive rs (PriLOSEC) 1-08 capsule ity of 20 mg 15:43: (20 mg) by [place] capsule 18 mouth MD every Anderso morning n before Cancer breakfast. Center metFORMIN 2022-09 Yes 500mg Take 1 Unive rs (GLUCOPHAGE 1-08 tablet ity of ) 500 mg 15:43: (500 mg) [place] tablet 18 by mouth MD daily with Anderso breakfast. n Cancer Center gabapentin 2022-09 Yes neuropathic 300mg Take 1 Univers (NEURONTIN) 1-08 pain capsule ity o f 300 mg 15:43: (300 mg) [place] capsule 18 by mouth 3 MD (three) Anderso times a n day. Cancer Center DULoxetine 2022-09 Yes 30mg Take 1 Unive rs (CYMBALTA) 1-08 capsule ity of 30 mg 15:43: (30 mg) by [place] capsule 18 mouth MD daily. Anderso n Cancer Center methadone 2022-09 Yes 5mg Take 1-2 Univ ers (DOLOPHINE) 1-08 tablets ity o f 5 mg tablet 15:43: (5-10 mg) [place] 18 by mouth 3 MD (three) Anderso times a n day. 10 mg Cancer in AM, 5 Center mg in afternoon, 5 mg at night oxyCODONE 2022-09 Yes 10mg Take 2 Univer s (OXY-IR) 5 1-08 capsules ity o f mg capsule 15:43: (10 mg) by [place] 18 mouth MD every 6 Anderso (six) n hours as Cancer needed for Center moderate pain. INV-(2020-09- Yes Malignant 400mg Take 4 Univers 115) 1-08 12-02 neoplasm of capsules ity of [id number] 00:00: 05:59 body of (400 mg) [place] 100 mg 00 :00 pancreas by mouth MD capsule twice Anderso daily for n 21 days. Cancer Take with Center 8 oz of water on empty stomach (no food 2 hours before and 1 hour after dose). apixaban 2022-09 Yes Pulmonary Take 2 Un becca (ELIQUIS 0-27 air tablets by ity o f STARTER 00:00: embolism mouth [place] PACK) 00 twice MD tablet dose daily for And erso pack 5 mg 7 days, n FOR VTE then take Cancer ONLY 1 tablet Center by mouth twice daily thereafter . lactulose 2022-09 Yes Constipatio 20g Take 30 mL Univers 20 g/30 mL 0-27 n, not (20 g) by it y of soln 00:00: otherwise mouth 2 [place] solution 00 specified (two) MD times a Anderso day as n needed Cancer (constipat Center ion). ciprofloxac 2022-09 Yes Intractable 500mg Take 1 Univers in HCl 0-27 abdominal tablet ity of (Cipro) 500 00:00: pain (500 mg) [place] mg tablet 00 by mouth MD twice Anderso daily. n Cancer Center prochlorper 2022-09 Yes Malignant 10mg Take 1 Univers [...] vomiting (if not responsive to prochlorpe razine). prochlorper 2022-09 Yes Malignant 10mg Take 1 Univers [...] 0-19 11-12 neoplasm of capsules ity of [id number] 00:00: 05:59 body of (400 mg) [place] 100 mg 00 :00 pancreas by mouth MD capsule twice Anderso daily for n 21 days. Cancer Take with Center 8 oz of water on empty stomach (no food 2 hours before and 1 hour after dose). INV-(2020-09- No Malignant 400mg Take 4 Univers 115) 0-19 11-08 neoplasm of capsules ity of [id number] 00:00: 22:42 body of (400 mg) [place] 100 mg 00 :46 pancreas by mouth MD capsule twice Anderso daily for n 21 days. Cancer Take with Center 8 oz of water on empty stomach (no food 2 hours before and 1 hour after dose). irbesartan- 2022-09- No 1{tbl} Take 1 U nivers hydrochloro 0-18 10-18 tablet by it y of thiazide 11:53: 00:00 mouth Jethro (AVALIDE) 51 :00 daily. 300-12.5 mg Anderso per tablet n Cancer Center irbesartan- 2022-09 2023- No 1{tbl} Take 1 U nivers hydrochloro 0-18 10-18 tablet by it y of thiazide 11:53: 00:00 mouth [place] (AVALIDE) 51 :00 daily. 300-12.5 mg Anderso per tablet n Cancer Center omeprazole 2022-09 Yes 20mg Take 1 Unive rs (PriLOSEC) 0-18 capsule ity of 20 mg 11:53: (20 mg) by [place] capsule 50 mouth MD every Anderso morning n before Cancer breakfast. [facility] senna 2022-09 Yes 1{tbl} Take 1 Univers (SENOKOT) 0-18 tablet by ity o f 8.6 mg 11:53: mouth as [place] tablet 50 needed. MD Yesenia hendrickson [facility] metFORMIN 2022-09 Yes Take by Unive rs (GLUCOPHAGE 0-18 mouth ity of ) 500 mg 11:53: daily with Shahid as tablet 50 breakfast. MD Yesenia hendrickson [facility] pancrelipas 2022-09 Yes [id number] Take 4 Un becca e (CREON) 0-18 capsules ity of 6,000-19,00 11:53: (24,000 Shahid as 0-30,000 50 Units) by units mouth 3 Anderso capsule (three) n times a Cancer day with Center meals. oxyCODONE 2022-09 Yes 5mg Take 1 Univer s (OXY-IR) 5 0-18 capsule (5 ity of mg capsule 11:53: mg) by [place] 50 mouth MD every 4 Anderso (four) [...] [place] capsule 58 by mouth MD at [facility] bedtime. [facility] DULoxetine 2022-09 Yes 30mg Take 1 Unive rs (CYMBALTA) 0-18 capsule ity of 30 mg 11:49: (30 mg) by [place] capsule 58 mouth MD daily. [facility] irbesartan 2022-09 Yes 300mg Take 1 Univ ers (AVAPRO) 0-07 tablet ity of 300 mg 00:00: (300 mg) [place] tablet 00 by mouth MD daily. [facility] irbesartan 2022-09 Yes 300mg Take 1 Univ ers (AVAPRO) 0-07 tablet ity of 300 mg 00:00: (300 mg) [place] tablet 00 by mouth MD daily. [facility] morphine 2022- No TAKE 15MG Uni vers (MS CONTIN) 05-2418 TABLET BY it y of 15 mg ER 00:00: 00:00 MOUTH [place] tablet 00 :00 EVERY MD MORNING Anderso AND AT n NOON AND Cancer TAKE 2 X Center 15MG = 30MG EVERY EVENING FOR 23 DAYS FOR PAIN CONTROL *DO NOT CRUSH* morphine 2022- No TAKE 15MG Uni vers (MS CONTIN) 05-24 10-18 TABLET BY it y of 15 mg ER 00:00: 00:00 MOUTH [place] tablet 00 :00 EVERY MD MORNING Anderso AND AT n NOON AND Cancer TAKE 2 X Center 15MG = 30MG EVERY EVENING FOR 23 DAYS FOR PAIN CONTROL *DO NOT CRUSH* cholecalcif Yes 50ug 50 mcg. Uni vers jacquelyn, 1-23 ity of vitamin D3, 00:00: [place] (VITAMIN 00 MD D3) 2,000 Anderso units tab n tablet Cancer [facility] cholecalcif Yes 50ug Take 50 Uni vers jacquelyn, 1-23 mcg by ity of vitamin D3, 00:00: mouth [place] (VITAMIN 00 daily. D3) 2,000 Anderso units tab n tablet [facility] polyethylen 2021-09- No 17g QD Take [address] [facility] glycol 11-09 by mouth [facility] (GLYCOLAX) 00:00: 23:59 daily for M edical 17 gram 00 :00 30 days. Center packet polyethylen 2021-09- No 17g QD Take [address] e glycol 2-22 01-21 by mouth [facility] (GLYCOLAX) 00:00: 23:59 daily for M edical 17 gram 00 :00 30 days. Center packet irbesartan- 2021-09 Yes 1{tbl} QD Take [address] hydrochloro 2-21 tablet by Mikki es thiazide 14:18: mouth Medical (AVALIDE) 22 daily. Center 300-12.5 mg per tablet irbesartan- 2021-09 Yes 1{tbl} QD Take [address] hydrochloro 2-21 tablet by Mikki es thiazide 14:18: mouth Medical (AVALIDE) 22 daily. Center 300-12.5 mg per tablet HYDROcodone 2021-09 Yes as needed. Univers -acetaminop 2-21 ity of hen (NORCO) 00:00: [place] 5 mg-325 mg 00 MD per tablet [facility] polyethylen 2021-09 Yes as needed. Univers e glycol 2-21 ity of (GLYCOLAX) 00:00: [place] 17 00 MD gram/dose Anderso powder [facility] polyethylen 2021-09 Yes 17g Take 17 g U nivers e glycol 2-21 by mouth ity of (GLYCOLAX) 00:00: daily as Shahid as 17 00 needed. MD gram/dose [facility] HYDROcodone 2021-09- No as needed. Univers -acetaminop 2-21 10-25 ity of hen (NORCO) 00:00: 00:00 [place] 5 mg-325 mg 00 :00 MD [facility] senna-docus 2021-09- No 1{tbl} QD Take [address] ate 2-21 01-20 tablet by [facility] (SENOKOT S) 00:00: 23:59 mouth Medi davide 8.6-50 mg 00 :00 nightly Center per tablet for 30 days. senna-docus 2021-09- No 1{tbl} QD Take [address] ate 2-21 01-20 tablet by [facility] (SENOKOT S) 00:00: 23:59 mouth Medi davide 8.6-50 mg 00 :00 nightly Center per tablet for 30 days. HYDROcodone 2021-09 1{tbl} Take [address] -acetaminop 2-21 12-31 tablet by Rut gross (NORCO 00:00: 23:59 mouth Medic al 5-325) 00 :00 every 6 Center 5-325 mg (six) per tablet hours as needed for up to 10 days. Max Daily Amount: 4 tablets HYDROcodone 2021-09 1{tbl} Take [address] -acetaminop 2-21 12-31 tablet by Rut gross (NORCO 00:00: 23:59 mouth Medic al 5-325) 00 :00 every 6 Center 5-325 mg (six) per tablet hours as needed for up to 10 days. Max Daily Amount: 4 tablets Vital Signs Vital Name Observation Time Observation Value Comments Source WEIGHT 2022-08-30 10:21:00 106.595 kg WEIGHT 2022-08-30 10:21:00 106.595 kg WEIGHT 2022-08-30 10:21:00 106.595 kg Systolic blood 2023-07-26 20:27:21 116 mm[Hg] Univer sity of pressure J[facility]ro [facility] Diastolic blood 2023-07-26 20:27:21 81 mm[Hg] Unive rsity of pressure J[facility]ro [facility] Heart rate 2023-07-26 20:27:21 105 /min [facility] Body temperature 2023-07-26 20:27:21 36.89 Viviana [facility] on Cancer Center Respiratory rate 2023-07-26 20:27:21 18 /min [facility]pe [facility] Jethro August on Cancer Center Body height 2023-07-26 20:27:21 166.1 cm [facility] Body weight 2023-07-26 20:27:21 72.8 kg Universi ty Jethro August on [facility] Center BMI 2023-07-26 20:27:21 26.39 kg/m2 [facility] Oxygen saturation in 2023-07-26 20:27:21 99 /min [facility] blood by Jethro bradford Pulse oximetry [facility] Center Systolic blood 2023-07-06 22:00:00 129 mm[Hg] Univer sity of pressure Jethro August on [facility] Center Diastolic blood 2023-07-06 22:00:00 81 mm[Hg] Unive rsity of pressure Jethro [facility] on [facility] Heart rate 2023-07-06 22:00:00 100 /min Universi ty [facility] MD August on [facility] Center Body temperature 2023-07-06 22:00:00 36.5 [facility] Respiratory rate 2023-07-06 22:00:00 18 /min [facility] August on [facility] Center Oxygen saturation in 2023-07-06 22:00:00 100 /min University of Arterial blood by Jethro bradford Pulse oximetry [facility] Center Body weight 2023-07-06 18:31:00 70.7 kg Universi ty [facility] MD August on [facility] Center BMI 2023-07-06 18:31:00 25.63 kg/m2 [facility] [place] MD August on [facility] Center Body height 2023-07-05 16:43:10 166.1 cm Universi ty [facility] MD August on [facility] Center Systolic blood 2022-09-07 12:00:00 137 mm[Hg] [facility] Diastolic blood 2022-09-07 12:00:00 86 mm[Hg] [facility] Heart rate 2022-09-07 12:00:00 84 /min [facility] Body temperature 2022-09-07 12:00:00 36.67 Viviana [facility] Respiratory rate 2022-09-07 12:00:00 17 /min [facility] Oxygen saturation in 2022-09-07 12:00:00 95 /min [facility] Arterial blood by Medical Tanesha nter Pulse oximetry Body height 2022-08-30 10:24:00 170.2 cm [facility] Body weight 2022-08-30 10:24:00 106.595 kg [facility] BMI 2022-08-30 10:24:00 36.81 kg/m2 [facility] Procedures Procedure Date / Time Performing Source Performed Clinician CARCINOEMBRYONIC ANTIGEN 2023-07-26 [facility] ity of 20:14:00 Jaylin Patterson [facility] CARBOHYDRATE ANTIGEN 19-9 2023-07-26 CardwellavrilArturo, [facility] 20:14:00 Jaylin Patterson [facility] COMPREHENSIVE METABOLIC PANEL 2023-07-26 [facility] Un iversity of 20:14:00 Jaylin Patterson [facility] COMPLETE BLOOD COUNT W/ 2023-07-26 [facility] DIFFERENTIAL 20:14:00 [facility] LACTATE DEHYDROGENASE 2023-07-26 [facility] 20:14:[address] [facility] URIC ACID 2023-07-26 [facility] 20:14:00 Jaylin Patterson [facility] MAGNESIUM LEVEL 2023-07-26 [facility] 20:14:00 Jaylin Patterson [facility] PHOSPHORUS LEVEL 2023-07-26 [facility] 20:14:[address] [facility] [facility] AMYLASE LEVEL 2023-07-26 [facility] 20:14:[address] [facility] LIPASE LEVEL 2023-07-26 [facility] 20:14:00 Jaylin Patterson [facility] PROTHROMBIN TIME 2023-07-26 [facility] 20:14:00 Jaylin Patterson [facility] APTT 2023-07-26 [facility] 20:14:00 Jaylin Patterson [facility] URINALYSIS WITH MICROSCOPIC IF 2023-07-26 [facility] niversity of INDICATED 20:14:00 Jaylin Patterson [facility] THYROID STIMULATING HORMONE 2023-07-26 [facility] ersity of 20:14:00 Jaylin Patterson [facility] .CBC 2023-07-26 [facility] 20:14:00 Jaylin [place] [facility] URINALYSIS MICROSCOPIC EXAM 2023-07-26 Channing [facility] ersity of 20:14:00 Jaylinra Jethro LEE [facility] COMPREHENSIVE METABOLIC PANEL 2023-07-20 Charlie Hodges Un iversity of 17:18:00 [place] [facility] COMPLETE BLOOD COUNT W/ 2023-07-20 Antoinette Hodgesg Universi ty of DIFFERENTIAL 17:18:00 [place] [facility] LACTATE DEHYDROGENASE 2023-07-20 Artemio [facility] of 17:18:00 [place] [facility] URIC ACID 2023-07-20 Artemio [facility] of 17:18:00 [place] [facility] MAGNESIUM LEVEL 2023-07-20 Artemio [facility] 17:18:00 [place] [facility] PHOSPHORUS LEVEL 2023-07-20 [facility] 17:18:00 [place] [facility] AMYLASE LEVEL 2023-07-20 Artemio [facility] of 17:18:00 [place] [facility] LIPASE LEVEL 2023-07-20 Artemio [facility] of 17:18:00 [place] [facility] .CBC 2023-07-20 Artemio [facility] of 17:18:00 [place] [facility] POC GLUCOSE SCREEN 2023-07-14 [facility] of 14:11:00 [place] [facility] POC GLUCOSE SCREEN 2023-07-14 Emily [facility] of 13:10:00 [place] [facility] MAGNESIUM LEVEL 2023-07-14 [facility] of 07:46:00 [facility] PHOSPHORUS LEVEL 2023-07-14 [facility] of 07:46:00 Damian [place] [facility] COMPLETE BLOOD COUNT W/ 2023-07-14 Aamir Alvares [facility] sity of DIFFERENTIAL 07:46:00 [facility] COMPREHENSIVE METABOLIC PANEL 2023-07-14 [facility] of 07:46:00 Damian hendrickson [facility] .CBC 2023-07-14 [facility] of 07:46:00 Damian Patterson [facility] POC GLUCOSE SCREEN 2023-07-14 Nataliya Pascual [facility] of 02:49:00 [place] MD Yesenia hendrickson [facility] URINE CULTURE 2023-07-14 Mckayla Infante [facility] 00:33:00 Jethro hendrickson [facility] POC GLUCOSE SCREEN 2023-07-13 Nataliya Pascual [place] of 23:07:00 [place] Yesenia hendrickson [facility] ECHOCARDIOGRAM 2D LIMITED - 2023-07-13 [facility] of FOLLOW UP 21:00:44 Saivaroon Jethro Patterson [facility] LACTIC ACID, VENOUS 2023-07-13 Mckayla Infante [facility] 19:23:[address] [place] [address] [facility] HC PROCALCITONIN (PCT) 2023-07-13 [facility] of 19:23:00 Jethro Patterson [facility] CT CHEST PULMONARY EMBOLISM W 2023-07-13 Mckayla Infante U niversity of CONTRAST 19:11:59 Jethro hendrickson [facility] POC GLUCOSE SCREEN 2023-07-13 Nataliya Pascual [facility] of 19:10:00 [place] Patterson [facility] POC GLUCOSE SCREEN 2023-07-13 Nataliya [facility] of 13:49:00 [place] Yesenia hendrickson [facility] MAGNESIUM LEVEL 2023-07-13 [facility] of 07:29:00 Damian Patterson [facility] PHOSPHORUS LEVEL 2023-07-13 [facility] of 07:29:00 Damian Morelos MD [facility] COMPLETE BLOOD COUNT W/ 2023-07-13 [facility] sity of DIFFERENTIAL 07:29:00 Damian Patterson [facility] COMPREHENSIVE METABOLIC PANEL 2023-07-13 [facility] of 07:29:00 Damian [place] [facility] .CBC 2023-07-13 [facility] of 07:29:00 [place] MD [facility] POC GLUCOSE SCREEN 2023-07-12 Skip Diaz [place] of 20:44:00 [place] Patterson [facility] OSI CT CHEST ABDOMEN PELVIS 2023-07-12 Mckayla Infante Uni versity of 19:49:00 [place] Patterson [facility] OSI CHEST 2023-07-12 Mckayla Infante University of 19:32:[address] [place] [address] [facility] XR ABDOMEN AP 2023-07-[address] [facility] of 17:42:24 [place] [facility] BLOOD CULTURE 2023-07-12 [facility] of 17:21:00 [place] [facility] BLOOD GAS VENOUS 2023-07-12 [facility] of 17:21:[address] [place] [address] [facility] XR CHEST 1 VW 2023-07-12 Nataliya Pacsual [place] of 16:55:51 [place] [facility] COMPLETE BLOOD COUNT W/ 2023-07-12 Nataliya Pascual Universi ty of DIFFERENTIAL 16:25:00 [place] [facility] COMPREHENSIVE METABOLIC PANEL 2023-07-12 Nataliya Pascual Un iversity of 16:25:00 [place] [facility] MAGNESIUM LEVEL 2023-07-12 Nataliya Pascual [place] of 16:25:00 [place] [facility] PHOSPHORUS LEVEL 2023-07-12 Nataliya Pascual [place] of 16:25:00 [place] [facility] CARDIAC PANEL 2023-07-12 Nataliya Pascual [place] of 16:25:00 [place] [facility] NT PRO BNP 2023-07-12 Nataliya Pascual [place] of 16:25:00 [place] [facility] PROTHROMBIN TIME 2023-07-12 Nataliya Pascual [place] of 16:25:00 [place] [facility] APTT 2023-07-12 Nataliya Pascual [place] of 16:25:[address] [place] [address] [facility] AMYLASE LEVEL 2023-07-12 Nataliya Pascual [place] of 16:25:00 [place] [facility] LIPASE LEVEL 2023-07-12 Nataliya Pascual [place] of 16:25:00 [place] [facility] .CBC 2023-07-12 Nataliya Pascual [place] of 16:25:00 [place] [facility] EKG, 12-LEAD (PORTABLE) 2023-07-12 Aamir Alvares sity of 00:00:00 Damian [place] [facility] COMPREHENSIVE METABOLIC PANEL 2023-07-06 Charlie Hodges Un iversity of 16:27:00 [place] [facility] COMPLETE BLOOD COUNT W/ 2023-07-06 Charlie Hodges Universi ty of DIFFERENTIAL 16:27:00 [place] [facility] LACTATE DEHYDROGENASE 2023-07-06 Charlie Hodges [place] of 16:27:00 [place] [facility] URIC ACID 2023-07-06 Charlie Hodges [place] of 16:27:00 [place] [facility] MAGNESIUM LEVEL 2023-07-06 Charlie Hodges [place] of 16:27:00 [place] [facility] PHOSPHORUS LEVEL 2023-07-06 Charlie Hodges [place] of 16:27:00 [place] [facility] AMYLASE LEVEL 2023-07-06 Charlie Hodges [place] of 16:27:00 [place] [facility] LIPASE LEVEL 2023-07-06 Charlie Hodges [place] of 16:27:00 [place] [facility] PROTHROMBIN TIME 2023-07-06 Charlie Hodges [place] of 16:27:00 [place] [facility] APTT 2023-07-06 Charlie Hodges [place] of 16:27:00 [place] [facility] GLUCOSE LEVEL 2023-07-06 Charlie Hodges [place] of 16:27:00 [place] [facility] BLOOD UREA NITROGEN 2023-07-06 Charlie Hodges [place] o f 16:27:00 [place] [facility] ELECTROLYTE PANEL 2023-07-06 Charlie Hodges [place] of 16:27:00 [place] [facility] .GLOMERULAR FILTRATION RATE 2023-07-06 Charlie Hodges [facility] ersity of 16:27:00 [place] [facility] CALCIUM LEVEL 2023-07-06 Charlie Hodges [place] of 16:27:00 [place] Patterson [facility] ALBUMIN LEVEL 2023-07-06 Charlie Hodges [place] of 16:27:[address] [place] [address] [facility] ALKALINE PHOSPHATASE 2023-07-06 Charlie Hodges [place] of 16:27:[address] [place] [address] [facility] madhavi [facility] ALANINE AMINOTRANSFERASE 2023-07-06 Charlie Hodges [facility] ity of 16:27:[address] [place] [address] [facility] ASPARTATE AMINOTRANSFERASE 2023-07-06 Charlie Hodges Unive rsity of 16:27:[address] [place] [address] [facility] hendrickson [facility] TOTAL PROTEIN 2023-07-06 Charlie Hodges [place] of 16:27:00 [place] [facility] FRACTIONATED BILIRUBIN 2023-07-06 Charlie Hodges [facility] of 16:27:[address] [place] [address] [facility] .CBC 2023-07-06 Charlie Hodges [place] of 16:27:[address] [place] [address] [facility] SERUM CREATININE 2023-07-06 Charlie Hodges [place] of 16:27:[address] [place] [address] [facility] hendrickson [facility] DIFFERENTIAL 2023-07-06 Charlie Hodges [place] of 16:27:[address] [place] [address] [facility] QIAC SERVICES 2023-07-[address] [facility] 21:07:42 Jaylin [facility] CT CHEST ABDOMEN PELVIS W WO 2023-07-05 [place], Uni versity of CONTRAST 00:33:53 Jaylin Patterson [facility] ECHOCARDIOGRAM 2D COMPLETE 2023-07-04 [facility] [facility] rsity of 19:54:14 Jaylin hendrickson [facility] CARBOHYDRATE ANTIGEN 19-9 2023-07-04 [place] [facility] sity of 13:30:00 Jaylin hendrickson [facility] CARCINOEMBRYONIC ANTIGEN 2023-07-04 [place], [facility] ity of 13:30:00 Jaylin hendrickson [facility] AMYLASE LEVEL 2023-07-04 Channing [place] of 13:30:00 Jaylin hendrickson [facility] APTT 2023-07-04 [place], [place] of 13:30:00 Jaylin hendrickson [facility] CALCIUM LEVEL 2023-07-04 [facility] [place] of 13:30:00 Jaylin Patterson [facility] COMPLETE BLOOD COUNT W/ 2023-07-04 AshiaArturo, Universi ty of DIFFERENTIAL 13:30:00 Jaylin Patterson [facility] COMPREHENSIVE METABOLIC PANEL 2023-07-04 [facility] Un iversity of 13:30:00 Jaylin Patterson [facility] HBV DNA QUANT 2023-07-04 [facility] [place] of 13:30:00 Jaylin Patterson [facility] HEPATITIS B SURFACE ANTIGEN 2023-07-04 [facility], [facility] ersity of 13:30:00 Jaylin [facility] HEPATITIS C VIRUS ANTIBODY 2023-07-04 [facility] rsity of 13:30:00 Jaylin [facility] HIV 1/2 ANTIGEN/ANTIBODY, FOURTH 2023-07-04 [facility] [place] of GEN W/RFL 13:30:00 Jaylin [facility] URINALYSIS WITH MICROSCOPIC IF 2023-07-04 AshiaArturo, U niversity of INDICATED 13:30:00 Jaylin hendrickson [facility] URIC ACID 2023-07-04 [facility] [place] of 13:30:00 Jaylin hendrickson [facility] THYROID STIMULATING HORMONE 2023-07-04 [facility] ersity of 13:30:00 Jaylin hendrickson [facility] PROTHROMBIN TIME 2023-07-04 [facility] Baptist[facility], [place] of 13:30:00 Jaylin hendrickson [facility] MAGNESIUM LEVEL 2023-07-04 [facility] BaptistArutro, [place] of 13:30:00 Jaylin hendrickson [facility] LIPASE LEVEL 2023-07-04 [facility] BaptistArturo, [place] of 13:30:00 Jaylin Patterson [facility] LACTATE DEHYDROGENASE 2023-07-04 [facility], [place] of 13:30:00 Jaylin Patterson [facility] GLUCOSE LEVEL 2023-07-04 [facility] 13:30:00 Jaylin Patterson [facility] BLOOD UREA NITROGEN 2023-07-04 [facility] o f 13:30:00 Jaylin hendrickson [facility] ELECTROLYTE PANEL 2023-07-04 [facility] 13:30:00 Jaylin [facility] SERUM CREATININE 2023-07-04 [facility] [place] of 13:30:00 Jaylinra Jethro LEE [facility] .GLOMERULAR FILTRATION RATE 2023-07-04 [facility] ersity of 13:30:00 Jaylin Patterson [facility] ALBUMIN LEVEL 2023-07-04 [facility] 13:30:00 Jaylin Patterson [facility] ALKALINE PHOSPHATASE 2023-07-04 [facility] of 13:30:00 Jaylin Patterson [facility] ALANINE AMINOTRANSFERASE 2023-07-04 [facility] ity of 13:30:00 Jaylinra [facility] ASPARTATE AMINOTRANSFERASE 2023-07-04 [facility] rs[facility] of 13:30:00 Jaylin [facility] TOTAL PROTEIN 2023-07-04 [facility] of 13:30:00 Jaylin hendrickson [facility] FRACTIONATED BILIRUBIN 2023-07-04 [facility] of 13:30:00 Jaylin Patterson [facility] .CBC 2023-07-04 [facility] of 13:30:00 Jaylin hendrickson [facility] DIFFERENTIAL 2023-07-04 [facility] of 13:30:00 Jaylin [facility] URINALYSIS MICROSCOPIC EXAM 2023-07-04 [facility] ersity of 13:30:00 Jaylin Patterson [facility] EKG, 12-LEAD (SCHEDULED) 2023-07-04 [facility] ity of 00:00:00 Jaylin [place] MD [facility] COMPLETE BLOOD COUNT W/ 2023-05-30 [facility] ty of DIFFERENTIAL 16:52:00 [place] [facility] COMPREHENSIVE METABOLIC PANEL 2023-05-30 [employer]anda [employer] Un iversity of 16:52:00 [place] [facility] CARBOHYDRATE ANTIGEN 19-9 2023-05-[address] [facility] sity of 16:52:00 [place] [facility] .CBC 2023-05-30 [facility] of 16:52:00 [place] [facility] DIFFERENTIAL 2023-05-30 [facility] of 16:52:00 [place] [facility] GLUCOSE LEVEL 2023-05-30 [facility] of 16:52:00 [place] [facility] BLOOD UREA NITROGEN 2023-05-30 [facility] o f 16:52:00 [place] [facility] ELECTROLYTE PANEL 2023-05-30 [facility] of 16:52:00 [place] [facility] SERUM CREATININE 2023-05-30 [facility] of 16:52:00 [place] [facility] .GLOMERULAR FILTRATION RATE 2023-05-30 [facility] ersity of 16:52:00 [place] [facility] CALCIUM LEVEL 2023-05-30 [facility] of 16:52:00 [place] [facility] ALBUMIN LEVEL 2023-05-30 [facility] of 16:52:00 [place] [facility] ALKALINE PHOSPHATASE 2023-05-30 [facility] of 16:52:00 [place] [facility] ALANINE AMINOTRANSFERASE 2023-05-30 [facility] it[facility] of 16:52:00 [place] [facility] ASPARTATE AMINOTRANSFERASE 2023-05-30 [facility] rsity of 16:52:00 [place] [facility] TOTAL PROTEIN 2023-05-30 [facility] of 16:52:00 [place] [facility] FRACTIONATED BILIRUBIN 2023-05-30 [employer] Universit y of 16:52:00 Jethro hendrickson [facility] CT CHEST ABDOMEN PELVIS W WO 2023-05-18 Ko, Akila Uni versity of CONTRAST 13:01:00 [place] [facility] COMPLETE BLOOD COUNT W/ 2023-05-17 Ko, Akila Universi ty of DIFFERENTIAL 20:16:00 Jethro hendrickson [facility] COMPREHENSIVE METABOLIC PANEL 2023-05-17Ko, Akila Un iversity of 20:16:00 [place] Yesenia hendrickson [facility] LACTATE DEHYDROGENASE 2023-05-17Ko, Akila University of 20:16:[address] [place] [address] [facility] MAGNESIUM LEVEL 2023-05-17, Akila [place] of 20:16:[address] [place] [address] [facility] PHOSPHORUS LEVEL 2023-05-17, [facility] of 20:16:[address] [place] [address] [facility] hend[facility] PROTHROMBIN TIME 2023-05-17, [facility] of 20:16:00 Jethro hendrickson [facility] CARCINOEMBRYONIC ANTIGEN 2023-05-17Ko, [employer] Univers ity of 20:16:[address] [place] [address] [facility] CARBOHYDRATE ANTIGEN 19-9 2023-05-17, [employer] Univer sity of 20:16:00 Jethro Patterson [facility] HEPATITIS B CORE ANTIBODY 2023-05-17, [employer] Univer sity of 20:16:[address] [facility] HEPATITIS B SURFACE ANTIGEN 2023-05-17Ko, [employer]ila Univ ersity of 20:16:00 Jethro hendrickson [facility] HEPATITIS B SURFACE ANTIBODY 2023-05-17Ko, Akila Uni versity of 20:16:[address] [facility] HEPATITIS C VIRUS ANTIBODY 2023-05-17Ko, Akila Unive rsity of 20:16:00 [place] [facility] NGS BLOOD CONTROL 2023-05-17, Akila University of 20:16:[address] [place] [address] [facility] .CBC 2023-05-17Ko, Akila University of 20:16:00 Jethro hendrickson [facility] DIFFERENTIAL 2023-05-17Ko, [facility] of 20:16:00 [place] [facility] GLUCOSE LEVEL 2023-05-17, [facility] of 20:16:00 [place] [facility] BLOOD UREA NITROGEN 2023-05-17, [facility] o f 20:16:00 [place] [facility] ELECTROLYTE PANEL 2023-05-17, [facility] of 20:16:00 [place] [facility] SERUM CREATININE 2023-05-17, [facility] of 20:16:00 [facility] .GLOMERULAR FILTRATION RATE 2023-05-17, [facility] ersity of 20:16:00 [place] [facility] CALCIUM LEVEL 2023-05-17, [facility] of 20:16:00 [place] [facility] ALBUMIN LEVEL 2023-05-17, [facility] of 20:16:00 [place] [facility] ALKALINE PHOSPHATASE 2023-05-17, [facility] of 20:16:00 [place] [facility] ALANINE AMINOTRANSFERASE 2023-05-17Ko, [facility] ity of 20:16:00 [place] [facility] ASPARTATE AMINOTRANSFERASE 2023-05-17, [facility] rsity of 20:16:00 [place] [facility] TOTAL PROTEIN 2023-05-17, [facility] of 20:16:00 [place] [facility] FRACTIONATED BILIRUBIN 2023-05-17Ko, [facility] of 20:16:00 [place] [facility] OSI CT CHEST ABDOMEN 2023-04-21 [facility] of 14:10:00 [place] [facility] OSI CT CHEST ABDOMEN PELVIS 2023-03-08 [facility] ers[facility] of 04:43:00 [place] [facility] O[facility] CT BRAIN 2023-03-08 Manda [facility] of 04:43:00 [place] [facility] OSI CT CHEST ABDOMEN PELVIS 2022-12-31 [facility] ersity of 04:43:00 [place] [facility] REPORT OF PROCEDURE - ENDOSCOPY 2022-11-11 Keihanian, Sravani [facility] URL 16:35:33 [facility] OSI CT CHEST 2022-10-14 [facility] of 05:44:00 [place] Yesenia hendrickson [facility] OSI CT ABDOMEN 2022-10-14 [facility] of 05:43:00 [place] Yesenia [facility] ERCP 2022-09-06 Evonnen, Sravani [facility] 10:00:00 [facility] ENDOSCOPIC RETROGRADE 2022-09-06 Keihanian, Sravani [facility] CHOLANGIOPANCREATOGRAPHY 08:49:00 [facility] (ENDOSCOPIC RETROGRADE CHOLANGIOPANCREATOGRAPHY) PROCEDURE W/ C-ARM 2022-09-06 Evonnen, Sravani [facility] 08:49:00 [facility] ENDOSCOPIC RETROGRADE 2022-09-06 Keihanian, Sravani [facility] CHOLANGIOPANCREATOGRAPHY, WITH 08:49:00 [facility] STENT REMOVAL ERCP, WITH BALLOON SWEEP OF BILE 2022-09-06 Pauljasonmadhavi, Sravani [facility] DUCTS 08:49:00 [facility] ENDOSCOPIC RETROGRADE 2022-09-06 Evonnen, Sravani [facility] CHOLANGIOPANCREATOGRAPHY, WITH 08:49:00 [facility] BILE DUCT STENT INSERTION ABORH, MANUAL 2022-09-[address] [facility] 05:57:00 [facility] CBC W/PLT COUNT & AUTO 2022-09-06 Salialo, Juanito [facility] DIFFERENTIAL 04:14:00 [facility] CBC W/PLT COUNT & AUTO 2022-09-06 Salialo, Juanito [facility] DIFFERENTIAL 04:14:00 [facility] BASIC METABOLIC PANEL 2022-09-06 Salim, Juanito [facility] 04:14:00 [facility] PROTHROMBIN TIME/INR 2022-09-06 Salim, [facility] 04:14:00 [facility] TYPE AND SCREEN, AUTOMATED 2022-09-06 Salim, [facility] 04:14:00 [facility] CARBOHYDRATE ANTIGEN 19-9 (CA 2022-09-03 Tamil, Ayana [facility] 19-9) 10:37:[address] [facility] [address] CHEST WITH IV CONTRAST 2022-09-[address] [facility] 03:05:00 [facility] US LIVER BIOPSY 2022-09-[address] [facility] 14:30:00 [facility] TISSUE EXAM 2022-09-[address] [facility] 14:07:00 [facility] PT/APTT 2022-09-[address] [facility] 09:29:00 [facility] CBC (HEMOGRAM ONLY) 2022-09-02 [facility] 09:29:00 [facility] BASIC METABOLIC PANEL 2022-09-[facility] 09:29:00 [facility] HEPATIC FUNCTION PANEL 2022-09-[address] [facility] 09:11:00 [facility] REPORT OF PROCEDURE - ENDOSCOPY 2022-09-[address] [facility] URL 18:02:47 [facility] REPORT OF PROCEDURE - ENDOSCOPY 2022-09-[address] [facility] URL 17:59:13 [facility] [place] ERCP 2022-09-[address] [facility] 16:42:00 [facility] CYTOLOGY 2022-09-[address] [facility] 16:20:00 [facility] CYTOLOGY REQUEST 2022-09-[address] [facility] 16:20:00 [facility] TISSUE EXAM 2022-09-[address] [facility] 15:53:00 [facility] ESOPHAGOGASTRODUODENOSCOPY, WITH 2022-09-[address] [facility] ENDOSCOPIC US 15:24:00 [facility] [facility] ENDOSCOPIC RETROGRADE 2022-09-[address] [facility] CHOLANGIOPANCREATOGRAPHY 15:24:00 [facility] (ENDOSCOPIC RETROGRADE CHOLANGIOPANCREATOGRAPHY) PROCEDURE W/ C-ARM 2022-09-[address] [facility] 15:24:00 [facility] ERCP, WITH SPHINCTEROTOMY 2022-09-01 Jawaid, Salmaan [facility] 15:24:00 [facility] ENDOSCOPIC RETROGRADE 2022-09-[address] [facility] CHOLANGIOPANCREATOGRAPHY, WITH 15:24:00 [facility] BILE DUCT STENT INSERTION CBC W/PLT COUNT & AUTO 2022-09-01 Juan Manuel Cassie Mazariegos [facility] DIFFERENTIAL 03:31:00 [facility] BASIC METABOLIC PANEL 2022-09-01 Juan Manuel Cassie [facility]iegos [facility] 03:31:00 [facility] HEPATIC FUNCTION PANEL 2022-09-01 Juan Manuel Cassie Mazariegos [facility] 03:31:00 [facility] CBC W/PLT COUNT & AUTO 2022-09-01 Juan Manuel Cassie Mazariegos [facility] DIFFERENTIAL 03:31:00 [facility] PROTHROMBIN TIME/INR 2022-09-01 Juan Manuel Cassie [facility]iegos [facility] 03:31:00 [facility] CARBOHYDRATE ANTIGEN 19-9 (CA 2022-09-[address] [facility] 19-9) 03:31:00 [facility] PATHOLOGY OUTSIDE INTERPRETATION 2022-09-01 Radha Zambrano [facility] 00:[facility]:00 [place] [facility] ABDOMEN/PELVIS WITH & WITHOUT 2022-08-[address] [facility] IV CONTRAST 16:13:00 [facility] SARS-COV2/RT-PCR (HS & REF 2022-08-[address] [facility]) 13:54:00 [facility] CBC W/PLT COUNT & AUTO 2022-08-31 Toma Zambranoprachi Mazariegos [facility] DIFFERENTIAL 13:52:00 [facility] CBC W/PLT COUNT & AUTO 2022-08-31 Juan Manuel Cassie Mazariegos [facility] DIFFERENTIAL 13:52:00 [facility] COMPREHENSIVE METABOLIC PANEL 2022-08-31 Toma Zambranohal Mazariegos [facility] 13:52:00 [facility] US ABDOMEN COMPLETE 2022-08-[address] [facility] 22:50:00 [facility] MR ABDOMEN WITHOUT IV CONTRAST 2022-08-[address] [facility] MRCP 13:09:00 [facility] URINALYSIS WITH MICROSCOPIC IF 2022-08-[address] [facility] INDICATED 03:28:00 [facility] URINALYSIS MICROSCOPIC 2022-08-[address] [facility] 03:28:00 [facility] CBC (HEMOGRAM ONLY) 2022-08-[address] [facility] 03:25:00 [facility] COMPREHENSIVE METABOLIC PANEL 2022-08-[address] [facility] 03:25:00 [facility] BLOOD CULTURE 2022-08-[address] [facility] 22:51:00 [facility] BLOOD CULTURE 2022-08-[address] [facility] 22:50:00 [facility] Plan of Care Planned Activity Planned Date Details Comments Source Future Scheduled 2023-09-[address] [facility] Test 00:00:00 Counseling and Screening Med ical Center (12+) [code = Tobacco Cessation Counseling and Screening (12+)] Future Scheduled 2023-09-[address] [facility] Test 00:00:00 Counseling and Screening Med ical Center (12+) [code = Tobacco Cessation Counseling and Screening (12+)] Future Scheduled 2023-08-01 COVID-19 Vaccination Uni versity of Test 08:45:29 (#1) [code = COVID-19 [facility] Vaccination (#1)] Cancer [address] [facility] Future Scheduled 2023-07-11 COVID-19 Vaccination Uni versity of Test 15:40:28 (#1) [code = COVID-19 [facility] Vaccination (#1)] Cancer [address] [facility] Future Scheduled 2023-05-19 Influenza Vaccine (#1) [facility]00 [code = Influenza Medical Ce nter Vaccine (#1)] Future Scheduled 2023-05-19 Influenza Vaccine (#1) [facility] 00:00:00 [code = Influenza Medical Ce nter Vaccine (#1)] Future Scheduled 2022-09-[address] [facility] Test 00:00:00 (12+) [code = DEPRESSION Med ical Center SCREENING (12+)] Future Scheduled 2022-09-[address] [facility] Test 00:00:00 (12+) [code = DEPRESSION Med ical Center SCREENING (12+)] Future Scheduled 2019 SHINGLES VACCINES ([address] [facility] Test 00:00:00 2) [code = SHINGLES Medical Center VACCINES (1 of 2)] Future Scheduled 2019 SHINGLES VACCINES ([address] [facility] Test 00:00:00 2) [code = SHINGLES Medical Center VACCINES (1 of 2)] Future Scheduled 2004-01-05 Lipid panel (procedure) [facility] Test 00:00:00 [code = 40493305] Medical Ce nter Future Scheduled 2004-01-05 Lipid panel (procedure) [facility] Test 00:00:00 [code = 20392535] Medical Ce nter Future Scheduled 1988-01-05 DTAP/TDAP/TD VACCINES ([address] [facility] Test 00:00:00 - Tdap) [code = Medical Cent er DTAP/TDAP/TD VACCINES (1 - Tdap)] Future Scheduled 1988-01-05 DTAP/TDAP/TD VACCINES ([address] [facility] Test 00:00:00 - Tdap) [code = Medical Cent er DTAP/TDAP/TD VACCINES (1 - Tdap)] Future Scheduled 1987 HEPATITIS C [facility]CRE[facility] 00:00:00 [code = HEPATITIS C Medical Center SCREENING] Future Scheduled 1987 HEPATITIS C [facility]CRE[facility] 00:00:00 [code = HEPATITIS C Medical Center SCREENING] Future Scheduled 1984-01-[address] Human [address] [facility] 00:00:00 virus screening Medical Cent er (procedure) [code = 437224080] Future Scheduled 1984-01-[address] Human [address] [facility] 00:00:00 virus screening Medical Cent er (procedure) [code = 000019474] Future Scheduled 1969 COVID-19 VACCINE (#1) [facility] 00:00:00 [code = COVID-19 VACCINE Med ical Center (#1)] Future Scheduled 1969 COVID-19 VACCINE (#1) [facility] 00:00:00 [code = COVID-19 VACCINE Med ical Center (#1)] Future Scheduled 1969 CT Colonography (combo) [facility] Test 00:00:00 [code = CT Colonography Medi [facility] Center (combo)] Future Scheduled 1969 Screening for malignant [facility] Test 00:00:00 neoplasm of colon Medical Ce nter (procedure) [code = 965835320] Future Scheduled 1969 Screening for malignant [facility] Test 00:00:00 neoplasm of colon Medical Ce nter (procedure) [code = 940342844] Future Scheduled 1969 Screening for malignant [facility] Test 00:00:00 neoplasm of colon Medical Ce nter (procedure) [code = 803647550] Future Scheduled 1969 Screening for malignant [facility] Test 00:00:00 neoplasm of colon Medical Ce nter (procedure) [code = 435020302] Future Scheduled 1969 Sigmoidoscopy [code = [facility] Sigmoidoscopy] Medical Cente r Future Scheduled 1969 CT Colonography (combo) [facility] Test 00:00:00 [code = CT Colonography [facility] Center (combo)] Future Scheduled 1969 Screening for malignant [facility] Test 00:00:00 neoplasm of colon Medical Ce nter (procedure) [code = 072443270] Future Scheduled 1969 Screening for malignant [facility] Test 00:00:00 neoplasm of colon Medical Ce nter (procedure) [code = 297352999] Future Scheduled 1969 Screening for malignant [facility] Test 00:00:00 neoplasm of colon Medical Ce nter (procedure) [code = 618471064] Future Scheduled 1969 Screening for malignant [facility] Test 00:00:00 neoplasm of colon Medical Ce nter (procedure) [code = 330096375] Future Scheduled 1969 Sigmoidoscopy [code = [facility] 00:[facility] Sigmoidoscopy] Medical Cente r Encounters Start End Encounter Admission Attending Care Care Encounter Source Date/Time Date/Time Type Type Clinicians Facility Department ID 2023-08-01 2023-08-01 Telephone Licona, 1.2.840.1 [id number] Univers 00:00:00 00:00:00 Madelin Gaona 88925.1.1 it y of 3.412.2.7 [place] .3.247576 .8 [facility] 2023-07-31 2023-07-31 Orders Gallego, 1.2.840.1 [id number] Univers 00:00:00 00:00:00 Only Jen Jonathan 47947.1.1 ity of 3.412.2.7 [place] .3.314126 .8 [facility] 2023-07-26 2023-07-26 Outpatient KENDRA CARPENTER [facility] [id number] [place] 16:59:36 23:59:00 POWER hendrickson 2023-07-26 2023-07-26 [facility] Pant, 1.2.840.1 [id number] [facility] 16:59:36 23:59:00 Encounter Power 21495.1.1 it y of 3.412.2.7 [place] .3.859481 .8 [facility] 2023-07-26 2023-07-26 Outpatient [facility] [id number] [place] 14:00:00 16:58:00 JAYLIN DE LA CRUZ 2023-07-26 2023-07-26 [facility] 1.2.840.1 [id number] [facility] 14:00:00 16:58:00 Encounter Jaylin de la cruz 91126.1.1 ity of 3.412.2.7 [place] .3.862448 .8 [facility] 2023-07-26 2023-07-26 Follow-Up Rodon 1.2.840.1 [id number] [facility] 16:00:00 16:43:19 Cora 65146.1.1 ity of [place] 3.412.2.7 [place] .3.662426 .8 [facility] 2023-07-26 2023-07-26 Outpatient EL EDEL [facility] MDA [id number] [place] 14:22:34 16:43:19 Mata BOWIE 2023-07-26 2023-07-26 Pratik Bella, 1.2.840.1 [id number] Univers 00:00:00 00:00:00 Only Arnie Clements 74717.1.1 ity of 3.412.2.7 [place] .3.600157 MD Ramos [facility] 2023-07-26 2023-07-26 Travel 1.2.840.1 1.2.215.203 [id number] Univers 00:00:00 00:00:00 11906.1.1 350.1.13.41 ity of 3.412.2.7 [place]7.3.698 [place] .3.444164 084.8 MD Ramos [facility] 2023-07-26 2023-07-26 Pratik Gallego, 1.2.840.1 [id number] Univers 00:00:00 00:00:00 Only Jen Castillo 03580.1.1 ity of 3.412.2.7 [place] .3.750504 MD Ramos [facility] 2023-07-25 2023-07-25 Outpatient KENDRA CARPENTER [facility] MDA [id number] [place] 10:15:00 23:59:00 POWER Mata o 2023-07-25 2023-07-25 [facility] Power Carpenter 1.2.840.1 [id number] [facility] 10:15:00 23:59:00 Avis Chacon 52218.1.1 ity of 3.412.2.7 [place] .3.892826 MD Ramos [facility] 2023-07-25 2023-07-25 Travel 1.2.840.1 1.2.095.646 [id number] Univers 00:00:00 00:00:00 07050.1.1 350.1.13.41 ity of 3.412.2.7 [place]7.3.698 [place] .3.974107 084.[address] [facility] 2023-07-20 2023-07-20 Outpatient CHARLIE BOURGEOIS MDA MDA [id number] 12:00:00 23:59:00 Mata hendrickson 2023-07-20 2023-07-20 [facility] Charlie Hodges 1.2.840.1 [id number] Univers 12:00:00 23:59:00 Encounter 45646.1.1 it y of 3.412.2.7 [place] .3.794307 MD Ramos [facility] 2023-07-20 2023-07-20 Follow-Up Jaylin Snell 1.2.840.1 [id number] Univers 14:20:00 16:13:24 Oneal Jesus 00558.1.1 ity of 3.412.2.7 [place] .3.627817 MD Obrien8 [facility] 2023-07-20 2023-07-20 Outpatient EL PUNEET [facility] [id number] [place] 13:15:23 16:13:24 JAYLIN DE LA CRUZso n 2023-07-20 2023-07-20 Orders Bashir, 1.2.840.1 [id number] Univers 00:00:00 00:00:00 Only Eliz 05494.1.1 ity of 3.412.2.7 [place] .3.971076 MD Obrien8 [facility] 2023-07-20 2023-07-20 Travel 1.2.840.1 1.2.183.271 [id number] Univers 00:00:00 00:00:00 78181.1.1 350.1.13.41 ity of 3.412.2.7 [place]7.3.698 [place] .3.064968 084.8 MD Obrien8 [facility] 2023-07-20 2023-07-20 Orders Puneet 1.2.840.1 [id number] Univers 00:00:00 00:00:00 Only Jaylin de la cruz 22065.1.1 ity of 3.412.2.7 [place] .3.291400 MD Obrien8 [facility] 2023-07-20 2023-07-20 Orders Julián, 1.2.840.1 [id number] Univers 00:00:00 00:00:00 Only Jen S 31159.1.1 ity of 3.412.2.7 [place] .3.348477 MD Obrien8 [facility] 2023-07-20 2023-07-20 Orders Julián, 1.2.840.1 [id number] Univers 00:00:00 00:00:00 Only Jen S 22079.1.1 ity of 3.412.2.7 [place] .3.360912 MD Obrien8 [facility] 2023-07-12 2023-07-14 Outpatient ER EMILY, [facility] Emergency [id number] 11:12:00 13:25:00 SKIP noyola 2023-07-12 2023-07-14 [facility] Gerber Campbell 1.2.840.1 [id number] Univers 11:12:00 13:25:00 Encounter Skip Diaz 82084.1.1 ity of Fu, Wolfgangqing 3.412.2.7 Shahid as Nataliya Pascual .3.622836 MD Obrien8 [facility] 2023-07-14 2023-07-14 Orders Julián, 1.2.840.1 [id number] Univers 00:00:00 00:00:00 Only Jen S 28956.1.1 ity of 3.412.2.7 [place] .3.029682 MD Obrien8 [facility] 2023-07-13 2023-07-13 Ancillary Thoppil, 1.2.840.1 [id number] Univers 20:15:00 20:20:00 Procedure Mckayla P 17537.1.1 it y of 3.412.2.7 [place] .3.167843 MD Obrien8 [facility] 2023-07-13 2023-07-13 Ancillary Thoppil, 1.2.840.1 [id number] Univers 20:10:00 20:15:00 Procedure Mckayla P 11106.1.1 it y of 3.412.2.7 [place] .3.438441 MD Ramos [facility] 2023-07-13 2023-07-13 Ancillary Thoppil, 1.2.840.1 [id number] [facility] 20:05:00 20:10:00 [place] 47767.1.1 it y of 3.412.2.7 [place] .3.847123 MD Obrien8 [facility] 2023-07-13 2023-07-13 Outpatient EL THOPPIL, MDA MDA [id number] 14:49:10 14:49:10 MCKAYLA Monterrosoers o n 2023-07-13 2023-07-13 Outpatient EL THOPPIL, MDA MDA [id number] 14:31:59 14:31:59 MCKAYLA August o madhavi 2023-07-13 2023-07-13 Outpatient EL THOPPIL, MDA MDA [id number] 14:31:56 14:31:56 MCKAYLA August o madhavi 2023-07-13 2023-07-13 Orders Katya, 1.2.840.1 [id number] Univers 00:00:00 00:00:00 Only Vira 74988.1.1 ity of 3.412.2.7 [place] .3.779180 MD Obrien8 [facility] 2023-07-13 2023-07-13 Orders Kimberly Arrington 1.2.840.1 [id number] Univers 00:00:00 00:00:00 Only 00694.1.1 ity of 3.412.2.7 [place] .3.405818 MD Obrien8 [facility] 2023-07-13 2023-07-13 Orders Shayne, 1.2.840.1 [id number] Univers 00:00:00 00:00:00 Only Arnie Clements 23642.1.1 ity of 3.412.2.7 [place] .3.853232 MD Ramos [facility] 2023-07-12 2023-07-12 Outpatient ER VU, MEENAKSHIEN MDA Emergency [id number] 11:12:00 11:12:00 [id number] [facility] 2023-07-12 2023-07-12 Travel 1.2.840.1 1.2.272.880 [id number] Univers 00:00:00 00:00:00 29490.1.1 350.1.13.41 ity of 3.412.2.7 [place]7.3.698 [place] .3.234349 084.8 MD Obrien8 [facility] 2023-07-10 2023-07-10 Education [facility], 1.2.840.1 [id number] Univers 00:00:00 00:00:00 Francie Acosta 13159.1.1 i ty of 3.412.2.7 [place] .3.660213 MD Obrien8 [facility] 2023-07-10 2023-07-10 Education [facility], 1.2.840.1 [id number] Univers 00:00:00 00:00:00 Francie Acosta 90382.1.1 i ty of 3.412.2.7 [place] .3.724304 MD Obrien8 [facility] 2023-07-06 2023-07-06 [facility] 1.2.840.1 [id number] Univers 09:15:00 09:15:00 Encounter Haley Licona 39255.1.1 ity of 3.412.2.7 [place] .3.977435 MD Obrien8 [facility] 2023-07-06 2023-07-06 [facility] 1.2.840.1 [id number] Univers 09:15:00 09:15:00 Encounter Jaylin de la cruz 87067.1.1 ity of 3.412.2.7 [place] .3.695904 MD Obrien8 [facility] 2023-07-06 2023-07-06 [facility] 1.2.840.1 [id number] Univers 09:15:00 09:15:00 Encounter Jaylin de la cruz 09371.1.1 ity of 3.412.2.7 [place] .3.773445 MD Obrien8 [facility] 2023-07-06 2023-07-06 [facility] 1.2.840.1 [id number] Univers 09:15:00 09:15:00 Encounter Haley Licona Proctor 66853.1.1 ity of 3.412.2.7 [place] .3.282937 MD Obrien8 [facility] 2023-07-06 2023-07-06 [facility] Artemio Charlie 1.2.840.1 [id number] Univers 08:15:00 09:14:00 Encounter 76493.1.1 it y of 3.412.2.7 [place] .3.313111 MD Obrien8 [facility] 2023-07-06 2023-07-06 [facility] Charlie 1.2.840.1 [id number] Univers 08:15:00 09:14:00 Encounter 39946.1.1 it y of 3.412.2.7 [place] .3.872233 MD Ramos [facility] 2023-07-06 2023-07-06 Orders Julián, 1.2.840.1 [id number] Univers 00:00:00 00:00:00 Only Jen S 27816.1.1 ity of 3.412.2.7 [place] .3.318972 MD Ramos [facility] 2023-07-06 2023-07-06 Travel 1.2.840.1 1.2.910.496 [id number] Univers 00:00:00 00:00:00 73372.1.1 350.1.13.41 ity of 3.412.2.7 2.[place]7.3.698 [place] .3.002223 084.8 MD Ramos [facility] 2023-07-06 2023-07-06 Orders Julián, 1.2.840.1 [id number] Univers 00:00:00 00:00:00 Only Jen S 83203.1.1 ity of 3.412.2.7 [place] .3.304257 MD Obrien8 [facility] 2023-07-06 2023-07-06 Travel 1.2.840.1 1.2.417.533 [id number] Univers 00:00:00 00:00:00 16503.1.1 350.1.13.41 ity of 3.412.2.7 [place]7.3.698 [place] .3.540240 084.8 MD Obrien8 [facility] 2023-07-05 2023-07-05 Outpatient [facility] [id number] 13:59:35 13:59:35 JAYLIN DE LA CRUZ n 2023-07-05 2023-07-05 Follow-Up Charlie Bourgeois 1.2.840.1 [id number] Univers 11:30:00 12:09:10 14439.1.1 ity of 3.412.2.7 [place] .3.208565 MD Ramos [facility] 2023-07-05 2023-07-05 Follow-Up Charlie Hodges 1.2.840.1 [id number] Univers 11:30:00 12:09:10 04043.1.1 ity of 3.412.2.7 [place] .3.093657 MD Ramos [facility] 2023-07-05 2023-07-05 Pratik Baltazar 1.2.840.1 [id number] Univers 00:00:00 00:00:00 Only Jaylin de la cruz 48462.1.1 ity of 3.412.2.7 [place] .3.490410 MD Ramos [facility] 2023-07-05 2023-07-05 Charlie Mac 1.2.840.1 [id number] Univers 00:00:00 00:00:00 Only 68923.1.1 ity of 3.412.2.7 [place] .3.099889 MD Ramos [facility] 2023-07-05 2023-07-05 Travel 1.2.840.1 1.2.525.721 [id number] Univers 00:00:00 00:00:00 55606.1.1 350.1.13.41 ity of 3.412.2.7 2.[place]7.3.698 [place] .3.246300 084.8 MD Ramos [facility] 2023-07-05 2023-07-05 Orders Shayne, 1.2.840.1 [id number] Univers 00:00:00 00:00:00 Only Arnie Clements 07031.1.1 ity of 3.412.2.7 [place] .3.675930 MD Ramos [facility] 2023-07-05 2023-07-05 Documentat Gallego, 1.2.840.1 [id number] Univers 00:00:00 00:00:00 ion Jen Castillo 76788.1.1 ity of 3.412.2.7 [place] .3.260229 MD Ramos [facility] 2023-07-05 2023-07-05 Orders Musekiwa-Ad 1.2.840.1 [id number] Univers 00:00:00 00:00:00 Only Jaylin de la cruz 01981.1.1 ity of 3.412.2.7 [place] .3.883757 MD Ramos [facility] 2023-07-05 2023-07-05 Orders Charlie Hodges 1.2.840.1 [id number] Univers 00:00:00 00:00:00 Only 98081.1.1 ity of 3.412.2.7 [place] .3.535432 MD Ramos [facility] 2023-07-05 2023-07-05 Travel 1.2.840.1 1.2.289.085 [id number] Univers 00:00:00 00:00:00 52728.1.1 350.1.13.41 ity of 3.412.2.7 2.[place]7.3.698 [place] .3.858001 084.8 .8 [facility] 2023-07-05 2023-07-05 Orders Shayne, 1.2.840.1 [id number] Univers 00:00:00 00:00:00 Only Arnie Clements 11757.1.1 ity of 3.412.2.7 [place] .3.734107 MD Obrien8 [facility] 2023-07-04 2023-07-04 [facility] 1.2.840.1 [id number] Univers 10:48:07 23:59:00 Encounter Jaylin de la cruz 29633.1.1 ity of 3.412.2.7 [place] .3.210368 MD Obrien8 [facility] 2023-07-04 2023-07-04 [facility] 1.2.840.1 [id number] Univers 10:48:07 23:59:00 Encounter Jaylin de la cruz 13924.1.1 ity of 3.412.2.7 [place] .3.910546 MD Obrien8 [facility] 2023-07-04 2023-07-04 Ancillary [facility] 1.2.840.1 [id number] Univers 18:35:00 21:00:00 Procedure Jaylin de la cruz 50471.1.1 ity of 3.412.2.7 [place] .3.865955 MD Obrien8 [facility] 2023-07-04 2023-07-04 [facility] 1.2.840.1 [id number] Univers 18:35:00 21:00:00 Procedure Jaylin de la cruz 69291.1.1 ity of 3.412.2.7 [place] .3.308294 MD Obrien8 [facility] 2023-07-04 2023-07-04 Outpatient [facility] MDA MDA [id number] 10:48:07 10:48:07 JAYLIN DE LA CRUZ [id number] [facility] 2023-07-04 2023-07-04 [facility] 1.2.840.1 [id number] Univers 08:00:00 10:47:00 Encounter Jaylin de la cruz 95161.1.1 ity of 3.412.2.7 [place] .3.868106 MD Obrien8 [facility] 2023-07-04 2023-07-04 [facility] 1.2.840.1 [id number] Univers 08:00:00 10:47:00 Encounter Jaylin de la cruz 86435.1.1 ity of 3.412.2.7 [place] .3.420755 MD Obrien8 [facility] 2023-07-04 [facility]23[facility]07-[facility] [id number] Univers 07:00:00 07:00:00 Encounter Alexi Smith 53155.1.1 ity of 3.412.2.7 [place] .3.940808 MD bOrien8 [facility] 2023-07-04 2023-07-04 [facility] 1.2.840.1 [id number] Univers 07:00:00 07:00:00 Encounter Jaylin de la cruz 17251.1.1 ity of 3.412.2.7 [place] .3.315637 MD Obrien8 [facility] 2023-07-04 2023[facility]07-04 [facility].2.[facility]1 [id number] Univers 07:00:00 07:00:00 Encounter Alexi Smith 62288.1.1 ity of 3.412.2.7 [place] .3.512704 MD Obrien8 [facility] 2023-07-04 2023-07-04 [facility] 1.2.840.1 [id number] Univers 07:00:00 07:00:00 Encounter Jaylin de la cruz 97838.1.1 ity of 3.412.2.7 [place] .3.119503 MD Obrien8 [facility] 2023-07-04 2023-07-04 Orders Camejo, 1.2.840.1 [id number] Univers 00:00:00 00:00:00 Only Eliz 44077.1.1 ity of 3.412.2.7 [place] .3.182854 MD Ramos [facility] 2023-07-04 2023-07-04 Orders Shayne, 1.2.840.1 [id number] Univers 00:00:00 00:00:00 Only Arnie H 62149.1.1 ity of 3.412.2.7 [place] .3.994001 MD Obrien8 [facility] 2023-07-04 2023-07-04 Travel 1.2.840.1 1.2.291.854 5798 [id number] Univers 00:00:00 00:00:00 38200.1.1 350.1.13.41 ity of 3.412.2.7 [place].3.698 [place] .3.290439 084.8 MD Obrien8 [facility] 2023-07-04 2023-07-04 Orders Camejo, 1.2.840.1 [id number] Univers 00:00:00 00:00:00 Only Eliz 87478.1.1 ity of 3.412.2.7 [place] .3.397679 MD Obrien8 [facility] 2023-07-04 2023-07-04 Orders Shayne, 1.2.840.1 [id number] Univers 00:00:00 00:00:00 Only Arnie H 82297.1.1 ity of 3.412.2.7 [place] .3.863661 MD Obrien8 [facility] 2023-07-04 2023-07-04 Travel 1.2.840.1 1.2.757.125 [id number] [id number] Univers 00:00:00 00:00:00 13850.1.1 350.1.13.41 ity of 3.412.2.7 [place].3.698 [place] .3.011417 084.8 .8 [facility] 2023-07-03 2023-07-03 Orders Julián, 1.2.840.1 [id number] Univers 00:00:00 00:00:00 Only Jen S 41941.1.1 ity of 3.412.2.7 [place] .3.965492 MD Obrien8 [facility] 2023-07-03 2023-07-03 Orders Julián, 1.2.840.1 [id number] Univers 00:00:00 00:00:00 Only Jen S 61786.1.1 ity of 3.412.2.7 [place] .3.580933 MD Obrien8 [facility] 2023-06-30 2023-06-30 Orders Weslyverena, 1.2.840.1 [id number] Univers 00:00:00 00:00:00 Only Annette E 95411.1.1 it y of 3.412.2.7 [place] .3.404004 MD Obrien8 [facility] 2023-06-30 2023-06-30 Orders Weslymerarysandeep, 1.2.840.1 [id number] Univers 00:00:00 00:00:00 Only Annette E 35815.1.1 it y of 3.412.2.7 [place] .3.038117 MD Obrien8 [facility] 2023-06-28 2023-06-28 Orders Julián, 1.2.840.1 [id number] Univers 00:00:00 00:00:00 Only Jen S 56464.1.1 ity of 3.412.2.7 [place] .3.825551 MD Obrien8 [facility] 2023-06-28 2023-06-28 Orders Julián, 1.2.840.1 [id number] Univers 00:00:00 00:00:00 Only Jen S 34703.1.1 ity of 3.412.2.7 [place] .3.566221 MD Obrien8 [facility] 2023-06-20 2023-06-20 Documentat Gallego, 1.2.840.1 [id number] Univers 00:00:00 00:00:00 ion Jen S 16825.1.1 ity of 3.412.2.7 [place] .3.047078 MD Ramos [facility] 2023-06-20 2023-06-20 Documentat Gallego, 1.2.840.1 [id number] Univers 00:00:00 00:00:00 ion Jen S 17040.1.1 ity of 3.412.2.7 [place] .3.254589 MD Obrien8 [facility] 2023-06-12 2023-06-12 Ancillary EL Pant, 1.2.840.1 [id number] 1111 [id number] Univers 22:40:00 22:45:00 Procedure Power 23736.1.1 it y of 3.412.2.7 [place] .3.754389 MD Obrien8 [facility] 2023-06-12 2023-06-12 Ancillary Pant, 1.2.840.1 [id number] 1111 [id number] Univers 22:40:00 22:45:00 Procedure Power 53669.1.1 it y of 3.412.2.7 [place] .3.297028 MD Obrien8 [facility] 2023-06-12 2023-06-12 Ancillary EL Pant, 1.2.840.1 [id number] 1111 [id number] Univers 22:35:00 22:40:00 Procedure Power 16769.1.1 it y of 3.412.2.7 [place] .3.306511 MD Obrien8 [facility] 2023-06-12 2023-06-12 Ancillary Pant, 1.2.840.1 [id number] 1111 [id number] Univers 22:35:00 22:40:00 Procedure Power 56614.1.1 it y of 3.412.2.7 [place] .3.738015 MD Obrien8 [facility] 2023-06-12 2023-06-12 Ancillary EL Pant, 1.2.840.1 [id number] 1111 [id number] Univers 22:30:00 22:35:00 Procedure Power 80980.1.1 it y of 3.412.2.7 [place] .3.647267 MD Ramos [facility] 2023-06-12 2023-06-12 Ancillary Pant, 1.2.840.1 [id number] 1111 [id number] Univers 22:30:00 22:35:00 Procedure Power 53987.1.1 it y of 3.412.2.7 [place] .3.516710 MD Obrien8 [facility] 2023-06-12 2023-06-12 Ancillary EL Pant, 1.2.840.1 [id number] 1111 [id number] Univers 22:25:00 22:30:00 Procedure Power 93370.1.1 it y of 3.412.2.7 [place] .3.988569 MD Ramos [facility] 2023-06-12 2023-06-12 Ancillary Pant, 1.2.840.1 [id number] 1111 [id number] Univers 22:25:00 22:30:00 Procedure Power 72283.1.1 it y of 3.412.2.7 [place] .3.486804 MD Ramos [facility] 2023-06-12 2023-06-12 Ancillary EL Pant, 1.2.840.1 [id number] 1111 [id number] Univers 22:20:00 22:25:00 Procedure Power 48889.1.1 it y of 3.412.2.7 [place] .3.847952 MD Ramos [facility] 2023-06-12 2023-06-12 Ancillary Pant, 1.2.840.1 [id number] 1111 [id number] Univers 22:20:00 22:25:00 Procedure Power 80570.1.1 it y of 3.412.2.7 [place] .3.677423 MD Ramos [facility] 2023-06-08 2023-06-08 Orders Kera, 1.2.840.1 [id number] 11 [id number] Univers 00:00:00 00:00:00 Only Tommie 02522.1.1 ity of 3.412.2.7 [place] .3.541052 .8 [facility] 2023-06-08 2023-06-08 Orders Kera, 1.2.840.1 [id number] Univers 00:00:00 00:00:00 Only Tommie 13710.1.1 ity of 3.412.2.7 [place] .3.321207 MD Obrien8 [facility] 2023-06-07 2023-06-07 Telemedici EL Rodon 1.2.840.1 [id number] Univers 14:20:00 14:20:00 ne Cora 35591.1.1 ity of [place] 3.412.2.7 [place] .3.923900 MD Obrien8 [facility] 2023-06-07 2023-06-07 Telemedici Rodon 1.2.840.1 [id number] Univers 14:20:00 14:20:00 ne Cora, 71305.1.1 ity of [place] 3.412.2.7 [place] .3.105118 MD Obrien8 [facility] 2023-05-31 2023-05-31 Hospital EL Je, 1.2.840.1 [id number] Univers 13:24:26 23:59:00 Encounter Trena 84687.1.1 it y of 3.412.2.7 [place] .3.725012 MD Obrien8 [facility] 2023-05-31 2023-05-31 Outpatient EL POWER BARKER, [facility] [id number] -20 13:24:26 23:59:00 TRENA [id number] [facility] 2023-05-31 2023-05-31 Hospital Je, 1.2.840.1 [id number] Univers 13:24:26 23:59:00 Encounter Trnea 08354.1.1 it y of 3.412.2.7 [place] .3.014686 MD Obrien8 [facility] 2023-05-31 2023-05-31 Follow-Up KENDRA Carpenter, 1.2.840.1 [id number] Univers 13:00:00 13:14:32 Power 84376.1.1 ity of 3.412.2.7 [place] .3.695816 MD Ramos [facility] 2023-05-31 2023-05-31 Follow-Up Pant, 1.2.840.1 [id number] Univers 13:00:00 13:14:32 Power 83640.1.1 ity of 3.412.2.7 [place] .3.745358 MD Ramos [facility] 2023-05-31 2023-05-31 Travel 1.2.840.1 1.2.353.047 3440 [id number] Univers 00:00:00 00:00:00 19052.1.1 350.1.13.41 ity of 3.412.2.7 [place].7.3.698 [place] .3.753251 084.8 MD Ramos [facility] 2023-05-31 2023-05-31 Travel 1.2.840.1 1.2.923.231 2688 [id number] Univers 00:00:00 00:00:00 55343.1.1 350.1.13.41 ity of 3.412.2.7 2.2.7.3.698 [place] .3.594751 084.8 MD Ramos [facility] 2023-05-30 2023-05-30 [facility], 1.2.840.1 [id number] Univers 11:48:14 23:59:00 Encounter Power 25212.1.1 it y of 3.412.2.7 [place] .3.264221 MD Ramos [facility] 2023-05-30 2023-05-30 [facility], 1.2.840.1 [id number] Univers 11:48:14 23:59:00 Encounter Power 78897.1.1 it y of 3.412.2.7 [place] .3.234443 MD Ramos [facility] 2023-05-29 2023-05-29 Lab Jamaal Bauman 1.2.840.1 [id number] Univers 00:00:00 00:00:00 Radha Masters 57233.1.1 ity of n 3.412.2.7 [place] .3.064086 MD Ramos [facility] 2023-05-29 2023-05-29 Lab Jamaal Bauman 1.2.840.1 [id number] Univers 00:00:00 00:00:00 Radha Masters 87754.1.1 ity of n 3.412.2.7 [place] .3.203477 MD Ramos [facility] 2023-05-24 2023-05-24 Ancillary EL Pant, 1.2.840.1 [id number] Univers 20:00:00 20:05:00 Procedure Power 56710.1.1 it y of 3.412.2.7 [place] .3.322540 MD Ramos [facility] 2023-05-24 2023-05-24 Ancillary Pant, 1.2.840.1 [id number] [id number] Univers 20:00:00 20:05:00 Procedure Power 85685.1.1 it y of 3.412.2.7 [place] .3.617394 MD Ramos [facility] 2023-05-24 2023-05-24 Akila Hamilton 1.2.840.1 [id number] 11 [id number] Univers 00:00:00 00:00:00 Only 44415.1.1 ity of 3.412.2.7 [place] .3.212663 MD Ramos [facility] 2023-05-24 2023-05-24 Akila Hamilton 1.2.840.1 [id number] Univers 00:00:00 00:00:00 Only 75637.1.1 ity of 3.412.2.7 [place] .3.994515 MD Ramos [facility] 2023-05-23 2023-05-23 Follow-Up KENDRA Ko Akila 1.2.840.1 [id number] Univers 13:00:00 13:52:34 Power Carpenter 23133.1.1 ity of 3.412.2.7 [place] .3.778025 MD Ramos [facility] 2023-05-23 2023-05-23 Follow-Up Stefani Akila 1.2.840.1 [id number] Univers 13:00:00 13:52:34 Power Carpenter 73696.1.1 ity of 3.412.2.7 [place] .3.103004 MD Ramos [facility] 2023-05-23 2023-05-23 Travel 1.2.840.1 1.2.759.845 [id number] [id number] Univers 00:00:00 00:00:00 67242.1.1 350.1.13.41 ity of 3.412.2.7 2.2.7.3.698 [place] .3.107284 084.Bandar Ramos [facility] 2023-05-23 2023-05-23 Travel 1.2.840.1 1.2.656.570 7092 [id number] Univers 00:00:00 00:00:00 73211.1.1 350.1.13.41 ity of 3.412.2.7 2.2.7.3.698 [place] .3.874267 084.8 MD Ramos [facility] 2023-05-18 2023-05-18 Ancillary Akila Rey 1.2.840.1 [id number] Univers 06:35:00 09:00:00 Procedure 02871.1.1 it y of 3.412.2.7 [place] .3.062163 MD Ramos [facility] 2023-05-18 2023-05-18 Ancillary Akila Ko 1.2.840.1 [id number] Univers 06:35:00 09:00:00 Procedure 20829.1.1 it y of 3.412.2.7 [place] .3.653115 MD Ramos [facility] 2023-05-18 2023-05-18 Travel 1.2.840.1 1.2.413.636 8533 [id number] Univers 00:00:00 00:00:00 31674.1.1 350.1.13.41 ity of 3.412.2.7 2.2.7.3.698 [place] .3.312530 084.8 MD Obrien8 [facility] 2023-05-18 2023-05-18 Travel 1.2.840.1 1.2.785.896 [id number] [id number] Univers 00:00:00 00:00:00 74849.1.1 350.1.13.41 ity of 3.412.2.7 2.2.7.3.698 [place] .3.742901 084.8 MD Ramos [facility] 2023-05-17 2023-05-17 [facility] 1.2.840.1 [id number] Univers 14:00:00 23:59:00 Encounter 59349.1.1 it y of 3.412.2.7 [place] .3.315065 MD Ramos [facility] 2023-05-17 2023-05-17 [facility] 1.2.840.1 [id number] Univers 14:00:00 23:59:00 Encounter 14283.1.1 it y of 3.412.2.7 [place] .3.903127 MD Ramos [facility] 2023-05-17 2023-05-17 [facility] 1.2.840.1 [id number] Univers 13:30:00 16:22:43 Visit 81086.1.1 ity of 3.412.2.7 [place] .3.379908 MD Ramos [facility] 2023-05-17 2023-05-17 [facility] 1.2.840.1 [id number] Univers 13:30:00 16:22:43 Visit 12417.1.1 ity of 3.412.2.7 [place] .3.858998 MD Ramos [facility] 2023-05-17 2023-05-17 Travel 1.2.840.1 1.2.627.212 1050 [id number] Univers 00:00:00 00:00:00 75004.1.1 350.1.13.41 ity of 3.412.2.7 2.2.7.3.698 [place] .3.021729 084.8 MD Ramos [facility] 2023-05-17 2023-05-17 Travel 1.2.840.1 1.2.064.116 3663 [id number] Univers 00:00:00 00:00:00 84289.1.1 350.1.13.41 ity of 3.412.2.7 2.2.7.3.698 [place] .3.557374 084.8 MD Ramos [facility] 2023-05-15 2023-05-15 NPR EL 1.2.840.1 [id number] Univers 14:00:00 15:05:15 42027.1.1 ity of 3.412.2.7 [place] .3.030476 MD Ramos [facility] 2023-05-15 2023-05-15 NPR 1.2.840.1 [id number] Univers 14:00:00 15:05:15 50851.1.1 ity of 3.412.2.7 [place] .3.272886 MD Ramos [facility] 2023-05-15 2023-05-15 Travel 1.2.840.1 1.2.686.731 7051 [id number] Univers 00:00:00 00:00:00 13139.1.1 350.1.13.41 ity of 3.412.2.7 2.2.7.3.698 [place] .3.484171 084.8 MD Ramos [facility] 2023-05-15 2023-05-15 Orders Akila Ko 1.2.840.1 [id number] Univers 00:00:00 00:00:00 Only 17760.1.1 ity of 3.412.2.7 [place] .3.711542 MD Ramos [facility] 2023-05-15 2023-05-15 Travel 1.2.840.1 1.2.924.620 9838 [id number] Univers 00:00:00 00:00:00 31954.1.1 350.1.13.41 ity of 3.412.2.7 2.2.7.3.698 [place] .3.108718 084.8 MD Ramos [facility] 2023-05-15 2023-05-15 Akila Hamilton 1.2.840.1 [id number] Univers 00:00:00 00:00:00 Only 09395.1.1 ity of 3.412.2.7 [place] .3.723234 MD Ramos [facility] 2023-05-08 2023-05-08 Travel 1.2.840.1 1.2.015.497 4211 [id number] Univers 00:00:00 00:00:00 83741.1.1 350.1.13.41 ity of 3.412.2.7 2.2.7.3.698 [place] .3.943283 084.8 MD Ramos [facility] 2023-05-08 2023-05-08 Travel 1.2.840.1 1.2.129.915 2297 [id number] Univers 00:00:00 00:00:00 24366.1.1 350.1.13.41 ity of 3.412.2.7 2.2.7.3.698 [place] .3.342733 084.8 MD Ramos [facility] 2022-08-29 2022-09-07 Inpatient FILIBERTO MARRUFO Gastro [id number] FILIBERTO 19:03:00 14:17:00 VANESSA 2022-08-29 2022-09-07 [facility] Vanessa Marrufo [facility] [id number] [facility] 19:03:00 14:17:00 [facility] 2022-09-07 [facility] Vanessa Gaytan [facility] [id number] [facility] 19:03:00 14:17:00 [facility] 2022-[facility]-06 2022-09-06 Surgery Patricia [facility] [id number] [facility] 09:30:00 11:00:00 [facility] 2022-09-06 2022-09-06 Surgery Patricia [facility] [id number] [facility] 09:30:00 11:00:00 [facility] 2022-09-06 2022-09-06 Anesthesia Dilip Xavier [facility] [id number] [id number] [facility] 08:57:00 10:16:00 Event [facility] 2022-09-06 2022-09-06 Anesthesia Dilip Xavier [facility] [id number] [id number] [facility] 08:57:00 10:16:00 Event [facility] 2022-09-01 2022-09-01 Anesthesia Dannie Proctor [facility] [id number] [facility] 15:24:00 16:52:00 Event Brenden Black [facility] 2022-09-01 2022-09-01 Anesthesia Dannie Proctor [facility] [id number] 15:24:00 16:52:00 Event Brenden Black [facility] 2022-09-01 2022-09-01 Surgery Samy [facility] [id number] 14:54:00 16:24:00 [facility] 2022-09-01 2022-09-01 Surgery Jawrakan, [facility] [id number] 14:54:00 16:24:00 [facility] 2022-08-302022-08-30 Travel [facility] [id number] [facility] 00:[facility] 00:00:00 [facility] 2022-08-30 2022-08-30 Travel [facility] [id number] [facility] 00:[facility] 00:[facility]:00 [facility] Results Test Description Test Time Test Comments Results Result Comments Source POC Glucose Screen - Fingerstick 2023-07-14 14:14:18 Test Item Value Reference Range Interpretation Comme nts Glucose Screen (test code = 37952-1) 114 mg/dL 70-99 H POC Sample Type (test code = Capillary 8484571686) STEVENSON (test code = STEVENSON) Capillary blood samples, e.g. obtained by fingerstick, may have inaccurate results in patients with decreased peripheral blood flow. Method description: All results are measured using Electrochemistry test methodology. The glucose in the sample mixes with the reagents on the test strip. The reaction produces an electric current. The amount of current produced is proportional to the glucose concentration in the blood. All POC Glucose screen test results, including critical values, must be interpreted and evaluated in the context of the patients' clinical findings. It is recommended to confirm any questionable test results by core lab methodology. Lab Interpretation (test code = Abnormal 90138-1) [facility] - Follow [id number] 21:26:38 Test Item Value Reference Range Interpretation Comments EF (test code = 57 [id number]) PXN (test code Ryan Stephenson MD - = PXN) 07/13/2023 Echocardiographic ReportInterpretation SummaryA complete two-dimensional transthoracic echocardiogram was performed (2D, M-mode, Spectral and color Doppler). The study was technically difficult. Compared to prior study, there is no significant change.Normal left ventricular size and systolic function.LV ejection fraction calculated using the bi-plane method of disks is 57 %.Normal global longitudinal peak systolic value.There is no pericardial effusion.Left Ventricle:Normal left ventricular size and systolic function. There is normal left ventricular wall thickness. LV ejection fraction calculated using the bi-plane method of disks is 57 %. The left ventricular wall motion is normal.I WMSI = 1.00 % Normal = 100 Normal GLS. Averagea -19.1% Segments SizeX - Cannot 2 - 1-2 smallInterpret 1 - Normal Hypokinetic 3 - Akinetic 4 - Dyskinetic3-5 moderate5 - Aneurysmal 6-14 large 15-16 [id number] imaginD volumes were not performed in this study.Cardiac Mechanics/Speckle Tracking Imaging:Normal global longitudinal peak systolic value. Strain Imaging was performed; GLPS avg = -19.1%.Diastology:Tissue Doppler was not obtained.Right Ventricle:The right ventricle is normal in size and function.Atria:Atria are normal in size.Mitral Valve:Mild thickening changes are noted.Tricuspid Valve:The tricuspid valve is normal. There is trace tricuspid regurgitation. Right ventricular systolic pressure is normal.Aortic Valve:The aortic valve is trileaflet. The aortic valve opens well.Pulmonic Valve:The pulmonic valve is not well visualized. There is no pulmonic valvular stenosis.Great Vessels:The aortic root is normal size. The inferior vena cava demonstrates normal size and normal respiratory variation.Pericardium/Pleural: There is no pericardial effusion.Preliminary ReviewerSjohanna Brownlee MD.MMode/2D Measurements IVSd: 0.88 cm LVIDd: 4.3 cm LVIDs: 2.9 cm LVPWd: 0.88 cmFS: 31.7 % Ao root diam: 3.8 cm Ao root area: 11.4 cm2 LA dimension: 2.6 cmLVOT diam: 2.1 cm EDV(MOD-A4C): 127.1 ml ESV(MOD-A4C): 55.3 mlLVOT area: 3.5 cm2 EF(MOD-A4C): 56.5 %EDV(MOD-A2C): 95.0 mlESV(MOD-A2C): 40.8 ml EDV(MOD-bp): 109.5 mlEF(MOD-A2C): 57.1 % ESV(MOD-bp): 47.5 ml EF(MOD-bp): 56.6 %LAV(MOD-A2C): 34.3 ml EDV (MOD-bp) Index: 61.6 ml/m2LAV(MOD-A4C): 24.1 mlLAV(MOD-bp): 32.1 mlLAV(MOD-bp) Indexed: 18.0 ml/m2ESV (MOD-bp) Index: 26.7 ml/m2 RWT: 0.41 cmTAPSE (>1.6): 2.2 cmDoppler Measurements Ao V2 max: 110.9 cm/sec LV V1 max P.1 mmHgAo max P.9 mmHg LV V1 mean P.8 mmHgAo V2 mean: 80.4 cm/sec LV V1 max: 100.7 cm/secAo mean P.8 mmHg LV V1 mean: 60.7 cm/secAo V2 VTI: 17.5 cm LV V1 VTI: 14.3 cmAVA(I,D): 2.9 cm2AVA(V,D): 3.2 cm2SV(LVOT): 50.5 ml PA V2 max: 68.7 cm/sec PA max P.9 mmHg PA V2 mean: 51.9 cm/sec PA mean P.2 mmHg PA V2 VTI: 11.3 cmTR max selene: 216.7 cm/sec RAP systole: 3.0 mmHgTR max P.8 mmHgRVSP(TR): 21.8 mmHgAVA Index (I,D): 1.6 LEATHA Index (V,D): 1.8Dimensionless Index: 0.91 [facility] 17:28:46 Test Item Value Reference Range Interpretation Comments aPTT (test 32.3 See_Comment [Automated mes donavan] code = The system [employer] h 73463-9) generated this result transmitted ref erence range: 24.1 - 3 5.5 second(s). The reference range was not used to int erpret this result as normal/abnormal . STEVENSON (test code This lab cannot be = STEVENSON) scheduled at the following locations due to collection/proccess ing restrictions: [facility] and [facility]. [facility] CenterProthrombin Time with [id number] 17:28:45 Test Item Value Reference Range Interpretation [...] following locations due to collection/procc essing restrictions: [facility] and [facility]. Lab Interpretation Abnormal (test code = 28828-6) [facility] CenterLDH2023-10-19 17:23:47 Test Item Value Reference Range Interpretation Comments LDH (test code = 130 U/L 135-225 L Results gre ater than 91528-8) 1651 U/L may no t be reliable due to matrix effect w ith extended diluti on as it exceeds the online activist's recommended [place] it. Caution should be exercised when interpreting linares ch values and done in conjunction wit h clinical contex t. Lab Interpretation (test Abnormal code = 56099-3) [facility] CenterFractionated [id number] 17:20:35 Test Item Value Reference Range Interpretation Comments Bili Total (test 0.6 mg/dL <=1.2 Indocyanine Green (ICG) code = 1974-10) may cause fal sely elevated biliru bin results. Total and direct bilirubin must not be measured from s amples containing indo cyanine green. False el evation of total bilirubin can be seen in patient s with IgG concentrations above 28 g/L. Bili Direct (test 0.2 mg/dL <=0.3 Indocyanin e Green (ICG) code = 1968-03) may cause fal sely elevated biliru bin results. Total and direct bilirubin must not be measured from s amples containing indo cyanine green. Bili Indirect (test 0.4 mg/dL 0.0-0.9 code = 1970-09) [facility] CenterFractionated [id number] 17:20:35 Test Item Value Reference Range Interpretation Comments Bili Total (test 0.6 mg/dL <=1.2 Indocyanine Green (ICG) code = 1974-10) may cause fal sely elevated biliru bin results. Total and direct bilirubin must not be measured from s amples containing indo cyanine green. False el evation of total bilirubin can be seen in patient s with IgG concentrations above 28 g/L. Bili Direct (test 0.2 mg/dL <=0.3 Indocyanin e Green (ICG) code = 1967-7) may cause fal sely elevated biliru bin results. Total and direct bilirubin must not be measured from s amples containing indo cyanine green. Bili Indirect (test 0.4 mg/dL 0.0-0.9 code = 1970-) [facility] CenterUric [id number] 17:20:34 Test Item Value Reference Range Interpretation Comments Uric Acid (test code = 3084-1) 3.2 mg/dL 3.4-7.0 L Lab Interpretation (test code = Abnormal 39315-1) [facility] CenterTotal [id number] 17:20:33 Test Item Value Reference Range Interpretation Comments Total Protein (test code = 2885-2) 7.6 g/dL 6.4-8.3 [facility] CenterTotal Twjefyf6337-14-84 17:20:33 Test Item Value Reference Range Interpretation Comments Total Protein (test code = 2885-2) 7.6 g/dL 6.4-8.3 [facility] CenterPhosphorus [id number] 17:20:32 Test Item Value Reference Range Interpretation Comments Phosphorus (test code = 2777-1) 4.0 mg/dL 2.5-4.5 [facility] CenterLipase [id number] 17:20:31 Test Item Value Reference Range Interpretation Comments Lipase Lvl (test code = 3040-3) 10 U/L 13-60 L Lab Interpretation (test code = Abnormal 60757-0) [facility] CenterCalcium Kqxpx5694-10-81 17:20:30 Test Item Value Reference Range Interpretation Comments Calcium Lvl (test code = 84593-1) 9.7 mg/dL 8.4-10.2 [facility] CenterCalcium Kgndg5385-00-30 17:20:30 Test Item Value Reference Range Interpretation Comments Calcium Lvl (test code = 17487-9) 9.7 mg/dL 8.4-10.2 [facility] CenterALT2023-10-19 17:20:29 Test Item Value Reference Range Interpretation Comments ALT (test code = 1742-6) 26 U/L <=41 [facility] CenterALT2023-10-19 17:20:29 Test Item Value Reference Range Interpretation Comments ALT (test code = 1742-6) 26 U/L <=41 [facility] CenterBUN2023-10-19 17:20:28 Test Item Value Reference Range Interpretation Comments BUN (test code = 3094-0) 11 mg/dL 6- [facility] CenterBUN2023-10-19 17:20:28 Test Item Value Reference Range Interpretation Comments BUN (test code = 3094-0) 11 mg/dL 6- [facility] CenterElectrolyte Rhkzd4800-40-25 17:20:27 Test Item Value Reference Range Interpretation Comments Sodium Lvl (test code = 133 See_Comment L [Au tomated message] 9229-2) The system [employer] generated this result transmitted ref erence range: 136 - 14 5 mEq/L. The refe rence range was not u sed to interpret this result as normal/abnor mal. Potassium Lvl (test code 5.4 See_Comment H [A utomated message] = 7263-3) The system [employer] generated this result transmitted ref erence range: 3.5 - 5. 1 mEq/L. The refe rence range was not u sed to interpret this result as normal/abnor mal. Chloride (test code = 95 See_Comment L [Auto mated message] 0968-0) The system [employer] generated this result transmitted ref erence range: 98 - 107 mEq/L. The refe rence range was not u sed to interpret this result as normal/abnor mal. CO2 (test code = 2027-9) 34 See_Comment H [A utomated message] The system [employer] generated this result transmitted ref erence range: 22 - 29 mEq/L. The reference r malick was not used to interpret this result as normal/abnor mal. Anion Gap (test code = 4 See_Comment [Aut omated message] 46863-6) The system [employer] generated this result transmitted ref erence range: 4 - 14 m Eq/L. The reference r malick was not used to interpret this result as normal/abnor mal. Lab Interpretation (test Abnormal code = 00637-8) [facility] CenterElectrolyte Ksowr4585-36-83 17:20:27 Test Item Value Reference Range Interpretation Comments Sodium Lvl (test code = 133 See_Comment L [Au tomated message] 2951-2) The system [employer] generated this result transmitted ref erence range: 136 - 14 5 mEq/L. The refe rence range was not u sed to interpret this result as normal/abnor mal. Potassium Lvl (test code 5.4 See_Comment H [A utomated message] = 2823-3) The system [employer] generated this result transmitted ref erence range: 3.5 - 5. 1 mEq/L. The refe rence range was not u sed to interpret this result as normal/abnor mal. Chloride (test code = 95 See_Comment L [Auto mated message] 2074-0) The system [employer] generated this result transmitted ref erence range: 98 - 107 mEq/L. The refe rence range was not u sed to interpret this result as normal/abnor mal. CO2 (test code = 2027-9) 34 See_Comment H [A utomated message] The system [employer] generated this result transmitted ref erence range: 22 - 29 mEq/L. The reference r malick was not used to interpret this result as normal/abnor mal. Anion Gap (test code = 4 See_Comment [Aut omated message] 74765-1) The system [employer] generated this result transmitted ref erence range: 4 - 14 m Eq/L. The reference r malick was not used to interpret this result as normal/abnor mal. Lab Interpretation (test Abnormal code = 62624-1) [facility] CenterGlucose Nxcef2036-51-54 17:20:26 Test Item Value Reference Range Interpretation [...] diabetes Lab Interpretation (test Abnormal code = 49553-0) [facility] CenterGlucose [id number] 17:20:26 Test Item Value Reference Range Interpretation [...] diabetes Lab Interpretation (test Abnormal code = 54271-5) [facility] CenterGlomerular Filtration Rate 2023-07-06 17:20:24 Test Item Value Reference Range Interpretation Comments eGFR (test code = 109 See_Comment The eGFRcr [place] [address]3065-2) the 2020 CKD-EP I creatinine equation using [...] CKD. [Automated mess age] The system which [employer] nerated this result transmit bell reference range: >=60 mL/ min/1.73 sq. m. The referenc e range was not used to int erpret this result as nighat l/abnormal. [facility] CenterGlomerular Filtration Rate 2023-07-06 17:20:24 Test Item Value Reference Range Interpretation Comments eGFR (test code = 109 See_Comment The eGFRcr is calculated with 89370-2) the 2020 CKD-EP I creatinine equation using [...] CKD. [Automated mess age] The system which [employer] nerated this result transmit bell reference range: >=60 mL/ min/1.73 sq. m. The referenc e range was not used to int erpret this result as nighat l/abnormal. [facility] CenterMagnesium Ylons4992-10-92 17:20:23 Test Item Value Reference Range Interpretation Comments Magnesium (test code = 05246-4) 2.2 mg/dL 1.6-2.6 [facility] CenterAmylase Fqsds1727-05-69 17:20:22 Test Item Value Reference Range Interpretation Comments Amylase Lvl (test code = 1798-8) 24 U/L 28-100 L Lab Interpretation (test code = Abnormal 20123-9) [facility] CenterAlkaline Sjuequfxrjj9931-02-10 17:20:21 Test Item Value Reference Range Interpretation Comments Alk Phos (test code = 6768-6) 161 U/L 40-129 H Lab Interpretation (test code = Abnormal 51311-7) [facility] CenterAlkaline Aozswdkipbo5764-79-59 17:20:21 Test Item Value Reference Range Interpretation Comments Alk Phos (test code = 6768-6) 161 U/L 40-129 H Lab Interpretation (test code = Abnormal 03280-6) [facility] CenterAlbumin Hrldr6312-49-60 17:20:20 Test Item Value Reference Range Interpretation Comments Albumin Lvl (test code 3.7 See_Comment [Aut omated message] The = 1751-03) system which ge nerated this result tra nsmitted reference range : 3.5 - 5.2 gm/dL. The refe rence range was not used to interpret this result as normal/abnormal . [facility] CenterAlbumin Rbfbo0844-42-64 17:20:20 Test Item Value Reference Range Interpretation Comments Albumin Lvl (test code 3.7 See_Comment [Aut omated message] The = 1751-03) system which ge nerated this result tra nsmitted reference range : 3.5 - 5.2 gm/dL. The refe rence range was not used to interpret this result as normal/abnormal . [facility] CenterAspartate Aminotransferase 2023-07-06 17:20:19 Test Item Value Reference Range Interpretation Comments AST (test code = 1920-8) 23 U/L <=40 [facility] CenterAspartate Aminotransferase 2023-07-06 17:20:19 Test Item Value Reference Range Interpretation Comments AST (test code = 1920-8) 23 U/L <=40 [facility].Serum Kjohuijkfw1620-61-02 17:20:17 Test Item Value Reference Range Interpretation Comments Creatinine (test code = 2160-0) 0.70 mg/dL 0.67-1.17 [facility].Serum Mxzzqehqxd6207-43-82 17:20:17 Test Item Value Reference Range Interpretation Comments Creatinine (test code = 2160-0) 0.70 mg/dL 0.67-1.17 [facility] CenterHBV DNA [id number] 17:03:01 Test Item Value Reference Range Interpretation Comments HBV DNA [facility] Undetected Undetected IU/mL Result in log IU/mL is (test code = Undetected. 80068-1) ----ADDITIO NAL INFORMATION---- ----The quantif ication range of this a ssay is 10 to1,000,000,000 IU/mL (1.00 log to 9. 00 log IU/mL). Testing was performed using the yoselin HBV test ([employer] with the yoselin 6800 System. Test Pe rformed by:[place] [id number] Director: Franco Sxaena M.D. Ph. D.; CLIA# [id number] [facility] CenterHBV DNA [id number] 17:03:01 Test Item Value Reference Range Interpretation Comments HBV DNA [facility] Undetected Undetected IU/mL Result in log IU/mL is (test code = Undetected. 73609-2) ----ADDITIO NAL INFORMATION---- ----The quantif ication range of this a ssay is 10 to1,000,000,000 IU/mL (1.00 log to 9. 00 log IU/mL). Testing was performed using the yoselin HBV test ([employer] with the yoselin 6800 System. Test Pe rformed by:[place] [id number] Director: Franco Saxena M.D. Ph. D.; CLIA# [id number] [facility] CenterDifferential2023-10-19 16:40:27 Test Item Value Reference Range Interpretation [...] 0.3 % 0.1-1.5 IGRE % c ount 74758-2) includes Metamyelocytes, Myelocytes, and Promyelocytes. Neutrophil Abs (test code 7.85 K/uL 1.95-7.25 H = 751-8) Lymphocyte Abs (test code 1.04 K/uL 1.01-3.24 = 731-0) Monocyte Abs (test code = 0.81 K/uL 0.24-0.85 742-7) Eosinophil Abs (test code 0.02 K/uL 0.02-0.50 = 711-2) Basophil Abs (test code = 0.03 K/uL 0.02-0.09 704-7) IG Abs (test code = 0.03 K/uL 0.01-0.12 55513-4) Lab Interpretation (test Abnormal code = 86721-6) [facility] Cancer PuoijiTzlmdzfssgnp8642-95-66 16:40:27 Test Item Value Reference Range Interpretation [...] 0.3 % 0.1-1.5 IGRE % c ount 01555-7) includes Metamyelocytes, Myelocytes, and Promyelocytes. Neutrophil Abs (test code 7.85 K/uL 1.95-7.25 H = 751-8) Lymphocyte Abs (test code 1.04 K/uL 1.01-3.24 = 731-0) Monocyte Abs (test code = 0.81 K/uL 0.24-0.85 742-7) Eosinophil Abs (test code 0.02 K/uL 0.02-0.50 = 711-2) Basophil Abs (test code = 0.03 K/uL 0.02-0.09 704-7) IG Abs (test code = 0.03 K/uL 0.01-0.12 15376-1) Lab Interpretation (test Abnormal code = 95041-2) [facility] [place].VKZ4346-23-11 16:40:19 Test Item Value Reference Range Interpretation Comments WBC (test code = 9.8 K/uL 4.1-10.5 6690-2) RBC (test code = 789-8) 3.85 See_Comment L [Au tomated message] The system [employer] generated this result transmitted ref erence range: 4.30 - 6 .04 M/uL. The refer ence range was not u sed to interpret this result as normal/abnor mal. Hgb (test code = 718-7) 9.6 See_Comment L [Au tomated message] The system [employer] generated this result transmitted ref erence range: [...] L [Automate d message] 786-4) The system [employer] generated this result transmitted ref erence range: 31.1 - 3 5.2 gm/dL. The refe rence range was not u sed to interpret this result as normal/abnor mal. RDW-SD (test code = 46.9 fL 37.5-49.7 22647-6) RDW-CV (test code = 15.8 % 11.6-15.5 H 788-0) Platelet count (test 257 K/uL 160-397 code = 777-3) MPV (test code = 10.0 fL 9.1-12.6 33163-8) INRBC (test code = 0.0 See_Comment The INRBC (instrument 17255-1) NRBC) value ref lects the enumeration of [...] mal. Lab Interpretation Abnormal (test code = 05641-5) [facility] CenterHIV 1/2 Antigen/Antibody, Fourth Gen [id number] 04:57:48 Test Item Value Reference Range Interpretation Comments HIV Ag/Ab, NON-REACTIVE NON-REACTIVE HIV-1 antigen a nd 4TH Gen (test HIV-1/HIV-2 an tibodies were code = [place] [address]-3) laboratory evid ence of HIVinfection. P LERAYMON NOTE: This informatio n has been disclosed toyou from records whose confident iality may beprotected by state law. If your state requ ires suchprotection, then the state law prohi bits you frommaking any further disclosure of t he informationwith out the specific writte n consent of the personto om it pertains, or as otherwise permitted by ruby w.A general authorization f or the release of medi davide orother information is NOT sufficient for this purpose. For additional information please refer [email or web address] [email or web address]/faq /MPB405(This link is being p rovided for informational/e ducational purposes only.) The performance of this assay has not been clinicallyvalid ated in patients less t pineda 2 years old. Lab test p erformed by:[facility] : [facility] [id number] [place] [address]SJLMSLOU LARRY MD,PHD. [facility] CenterHIV 1/2 Antigen/Antibody, Fourth Gen [id number] 04:57:48 Test Item Value Reference Range Interpretation Comments HIV Ag/Ab, NON-REACTIVE NON-REACTIVE HIV-1 antigen a nd 4TH Gen (test HIV-1/HIV-2 an tibodies were code = [place] [address]-8) laboratory evid ence of HIVinfection. P LEASE NOTE: This informatio n has been disclosed toyou from records whose confident iality may beprotected by state law. If your state requ ires suchprotection, then the state law prohi bits you frommaking any further disclosure of t he informationwith out the specific writte n consent of the personto wh om it pertains, or as otherwise permitted by ruby hopson.A general authorization f or the release of medi davide orother information is NOT sufficient for this purpose. For additional information please refer [email or web address] [email or web address]/faq /VZE020(This link is being p rovided for informational/e ducational purposes only.) The performance of this assay has not been clinicallyvalid ated in patients less t pineda 2 years old. Lab test p erformed by:[facility] : [facility] [id number] [place] [address]TFXMXLOU LARRY MD,PHD. [facility] CenterEchocardiogram 2D Complete 2023-07-04 21:16:41 Test Item Value Reference Range Interpretation Comments EF (test code = 60 [id number]) PXN (test code Sondra Joyner MD - [...] 2.3 LEATHA Index (V,D): 2.2Dimensionless Index: 0.83 [facility] CenterEchocardiogram 2D Complete 2023-07-04 21:16:41 Test Item Value Reference Range Interpretation Comments EF (test code = 60 [id number]) PXN (test code Sondra Joyner MD - [...] 2.3 LEATHA Index (V,D): 2.2Dimensionless Index: 0.83 [facility] CenterCA [id number] 17:14:20 Test Item Value Reference Interpretation Comments Range CA 19-9 (test code 66141.0 U/mL <=35.0 H Results g reater than 9500 = 5171) U/mL may not be reliable due to matrix e ffect with extended diluti on as it exceeds the man ufacturer's recommended ar[place] it. Caution should be exerc ised when interpreting linares ch values and done in con junction with clinical c ontext. This test is measure d by electrochemilum inescence immunoassay on [employer] Yoselin immunoassay isabel lyzers. Results obtaine d in different metho ds are not interchangeable . Lab Interpretation Abnormal (test code = 26925-8) [facility] CenterHepatitis C Virus Antibody 2023-07-04 15:25:47 Test Item [...] cons ideration when interpreti ng the results. [facility] CenterHepatitis C Virus Antibody 2023-07-04 15:25:47 Test Item [...] cons ideration when interpreti ng the results. [facility] B Surface [id number] 15:24:51 Test Item Value Reference Range Interpretation Comments HBsAg. (test code = 5747) Non Reactive Non Reactive [facility] CenterHec[facility] Surface [id number] 15:24:51 Test Item Value Reference Range Interpretation Comments HBsAg. (test code = 5747) Non Reactive Non Reactive [facility] CenterTSH2023-10-17 14:23:22 Test Item Value Reference Range Interpretation Comments TSH (test code = 1.75 See_Comment [Automated message] The 18068-3) system which ge nerated this result transmit bell reference range : 0.27 - 4.20 mcunit/mL. The reference range was not used to interpr et this result as nighat l/abnormal. [facility] CenterCEA2023-10-17 14:23:19 Test Item Value Reference Interpretation Comments Range CEA (test code = 11.2 ng/mL <=3.8 H Reference R anges:Smoker: 0.0 9-6) - 5.5Non-Smoker : 0.0 - 3.8This test is measured by electrochemilum inescence immunoassay on [employer]al Yoselin immunoassay isabel lyzers. Results obtaine d in different metho ds are not interchangeable . Lab Interpretation Abnormal (test code = 94053-6) [facility] CenterUrinalysis Microscopic Exam 2023-07-04 14:11:38 Test Item Value Reference Range Interpretation Comments UA WBC (test code = See_Comment Some rep orting 42881-6) parameters with in the Urinalysis test have changed due to the implementation of new instrumentation in the [facility] sens[place] vity of measurement. Urinalysis resu lts reported by the [facility] enters using existing instrumentation , as well as Urinaly sis testing perform ed manually or by backup methodology at the [facility] khadijah l remain relative ly unchanged. [...] (test code = See_Comment [Automa bell message] 16944-0) The system [employer] generated this result transmitted ref erence range: 0 - 2 /H PF. The reference range was not used to int erpret this result as normal/abnormal . UA Mucous (test code = TRACE Not Seen-Trace 81806-8) /HPF UA Bacteria (test code 1+ NOT SEEN /HPF A = 69273-0) UA Squam Epi (test NOT SEEN None-Occasional code = 86279-9) /HPF Lab Interpretation Abnormal (test code = 67880-8) [facility] CenterUrinalysis w/Microscopic if Vuzysmyrx3169-10-57 13:55:12 Test Item Value Reference Range Interpretation Comments UA Color (test code = 18889-7) Yellow Straw-Yellow UA Appear (test code = 06400-5) Hazy Clear A UA Glucose (test code [...] NEG Lab Interpretation (test code = Abnormal 07953-8) [facility] CenterPathology Outside Interpretation 2023-05-31 14:43:38 Test Item Value Reference Range Interpretation Comments Materials Received (test v6cpqWObHRLedCRqQuZh code = 9973) MCBuORSvw6nsNRCtxZOx ZzEwMzNcZnRuYmpcdWMx XHCzVyIng2ryu330lPSh g5lkHOUjOrM0dDPwSVRb kGDpF052OBKzQMvif7ap g7EsJEBskCKmi7R2UBZY qxbdvWl3mSqjN03rs4V1 TuazE2veQGZbAOLjI7Ad RB8sSPYuBiu4NMR7EMM3 RQYcYBZgY4CkQR0oWTRb dOKqXKi8k0ourTonNXOs XRT0e6ciEWehqpBdAK8l wi0vvXq6j1luqnTxEPYc GTMbnVKXFSTyM6QcaNji Lf3axXc0iXuxGfqrDZN2 Mbo0AH7wzn60lgy9rNge LQCpvjqaUpD5PYeuFACi knljKMp4EMptHAInbUvx MFxtYXJncjcyMFxtYXJn aTQ1MJUtrQXhM7OnQZId IGooWJEdfwt4PpOgKy2c zPQzhUzmVXjaw4mbv0aw hFLuApj0KYEaBxGeDjsy XImgw1Vsc8qeZXImyw5g WJM1bMTwySyrm2E9eTBo GQHjvSFjzvNwXNPscz89 tIMkvQYacFHnhl4pqrWw tESigNZiCZP3cCFxsgNn YRLnmZWpHWJsDQ1kfOPf QXQbtJ6szpxnFQEvPxJv terhVZLpwGilqiVzRj3d iXexYTD0FEviZ7skhE1r HkY5QOgeL0ihqQ3jFJs4 AGqsiZB6YXOwgD7eFK8r islgj1lfJaAqHK1bpucz u0blOfCwED5oosm1b2ui SQE9QXkpRVFiCgT7awJ5 NDBcaGVhZGVyeTcyMFxm y648AWJ7UwHnMOIcm0Xm L2JutTctG99fvBaoO19e HJCzcMhniG2reOlzsA8c LlFnNdXcPCj1vj09HUk4 qmbbuAqsRDu7vuAaEHXp BJQ0KOHtmRHxQILwU1v2 qoTlTPOdLWB0BPIwlJRh CRIwT8t0rjUbFQS1VQl0 cnBhZGRmdDNcdHJwYWRk YjBcdHJwYWRkZmIzXHRy zZSokGNvfIJjvP2jmJyt XWLrfPHrlV0oFSU9YYDw cmgzMjBcdHJoZHJcbHRy ej25LNOidhKxjLGjzYiz eOUoPSC0WPDhJJGuJIHl SVA9SXUaEvKwbkGeIQfd bGJyZHJiXGJyZHJzXGJy RGE5AKPcHaPwdmOlFTrf bGJyZHJsXGJyZHJzXGJy BMX0WZYyOkEzpoSwWBme bGJyZHJyXGJyZHJzXGJy MUT3CVCgIbGgjnHfFBah bHBhZHQxMFxjbHBhZGZ0 Y4hdiBYkUCPoSUvseJLv XFXtM4njsUAkDPaoFLLj cGFkZmwzXGNscGFkYjBc E3dgXMWoQcIhI3VkmWi6 MDAwXGNsdmVydGFsdFxj aNSdNKF2DQZfRWAxFKCo SMZ3PAAuDeGcslBuXDdh bGJyZHJiXGJyZHJzXGJy RCO6LNKqOhGmayEhYVyf bGJyZHJsXGJyZHJzXGJy ULH2IHFiSuUdyhBtEJvj bGJyZHJyXGJyZHJzXGJy ALC2JHNlLbLqjqTgHEui bHBhZHQxMFxjbHBhZGZ0 U5nkpFYbIGOnWEbihPFi BXBbP1okcSNvSJgiSJVy cGFkZmwzXGNscGFkYjBc L8xwDAPrWnWeO4JfeVs8 NjAwXGNsdmVydGFsdFxj bBGsMBO6JZVdDVIrRBPv JJO3AQWeEgGfuqFoSEda bGJyZHJiXGJyZHJzXGJy IOD5WVFwLmCebmVaECtu bGJyZHJsXGJyZHJzXGJy SJZ2NVVjItFaksOzXIwg bGJyZHJyXGJyZHJzXGJy VIE9YMFdOaRxiuQvXIgz bHBhZHQxMFxjbHBhZGZ0 H0agmNQmLPHwJOqtqKKx IHXoS9pmbEQsAHeeYLCq cGFkZmwzXGNscGFkYjBc O2ufJFNcFpCzF9IxiHo0 GjGaKJXenlTyrS36Dqfg g2JsIFYlSPQ3EYdnDAuz bFxwbGFpblxmMVxmczIw OYlrjbkkDFWfWZxcI7ou TtDnPCXmkGbwFRhmj7Qj XGYxXGNmMlxmczIwXGIg GHYbQGMiaG4dEasrS3Dv nY0gGJjcUyefY7jnVKMv k8CjvF0xQBhkjTPvddft MVxmczIwXGxhbmcxMDMz RUarH4iuTpCiJRHywJdd HOdjy1YwERJrMLWjOkqa mbDnJUm1tsRmIODeuUsr cJDjAGtmsnSfsNulf1Rb xaYzrPizNYEkKFb4oeIh dybniNf7rCMlnIngHHJq bZurlR9nVtPgSmEjRVkt bGFpblxmMVxmczIwXGxh nliaRMZfNMqxY1tuOwHo BBShaViuWQthx9HlPSSt CIIdPdrtilIcNAUxY44z bGVjdGVkXHBsYWluXGYx XGZzMjBcbGFuZzEwMzNc aGljaFxmMVxkYmNoXGYx NYcqH0kkTwQfD7WnBRIj SyHlcYGdU6uyN7ZzmXcf YXJkXGludGJsXHNzcGFy QBA6dGXjpiGweAJmrBRw VOGqELhyMXY6yUViteig vWPhlvkkWJxwvtA4YUQk YWluXGYxXGZzMjBcbGFu ZzEwMzNcaGljaFxmMVxk DmDpLGNrHZevZ0ljEaCn Z2BxIVIpKpHfPdFYUJNj aXZlZFxwbGFpblxmMVxm czIwXGxhbmcxMDMzXGhp P1dyLgUyBKWaqWwzZDxr r1QwTUVbRGFdZtgsxhVz QHj5heWeNYUzcKdjyC39 Yeyusc27OTZrk2toFRRk V9LuzGNfRQZksHLqYJse MDhcdHJwYWRkZmwzXHRy cGFkZHIxMDhcdHJwYWRk ZnIzXHRycGFkZHQwXHRy cAJcZSH6W8s4bjTfANRd SCj3ciHsKDEdTlHyoRKc FBY6VDa2VdedhoR4yZYi D6s4WtjdemXkFQosmLTm lv82DWRoneZkmCKfhWcr uBHnMVJ6NWXcMUKrQHGc LFY8TKKhIpCiqzOfBNlq bGJyZHJiXGJyZHJzXGJy JVB9EXMxVlKsphDcKWzg bGJyZHJsXGJyZHJzXGJy GJL9RSGrJrVrkeRkDHxr bGJyZHJyXGJyZHJzXGJy NHJ1DVMsFjDhwxOkNMnl bHBhZHQxMFxjbHBhZGZ0 Y9hxpNThPQEyNIhyuCLf NSSoJ9luiPNhYQeyAPUm cGFkZmwzXGNscGFkYjBc O0prNFLyFgQiW8IsmHy2 MDAwXGNsdmVydGFsdFxj bQCtQZS3JKOaACVhLHLq GXN4GGLrYqOagcTiYZgl bGJyZHJiXGJyZHJzXGJy AXX3BRUrYwTqwzQjOUlj bGJyZHJsXGJyZHJzXGJy CFZ4ZNLbZlBzasGxBVvo bGJyZHJyXGJyZHJzXGJy KJV6JLNkKmPoblYpNSjh bHBhZHQxMFxjbHBhZGZ0 H6ydpOZhERZkMDtnsFCa QZGnC3irbHEwHZqhCDGf cGFkZmwzXGNscGFkYjBc Q2aeEBDvGrRoX7ZstQz9 NjAwXGNsdmVydGFsdFxj gAOzXXZ1IIPrOCMpRJVn SFD2OUYoBqAkweFzKDng bGJyZHJiXGJyZHJzXGJy KLH2MAIiIiKvyhZmJQdd bGJyZHJsXGJyZHJzXGJy HXD1VTZpPbPyoaNaZLgh bGJyZHJyXGJyZHJzXGJy JSM6RQFjWnGacaUxWBaz bHBhZHQxMFxjbHBhZGZ0 G3twkCNaDSAaDZbmcZCi KRAyD4orvVUlHBqnDBMl cGFkZmwzXGNscGFkYjBc E8gvSVUlOlOtU2QdyHx6 OxReMFKbakFtlH57Zsul e5RnRDCpLSZ9TQcdVNke bFxwbGFpblxmMFxmczI0 XHBsYWluXGYxXGZzMjBc bGFuZzEwMzNcaGljaFxm BXbdYwHfZGCyMKytA7xy LuNoD1JiAYVpRsGiDY3t MDApDMTzFlK9XTLlVTWF MSRpTXTDH6IOOyaxPDIP K1AstWgiaE1dXlUeLhWe WUqmRD1dXMIiT0gyrNRd KOQyBQEuT4uvPrBvvT0x aFxmMVxjZjJcZnMyMFxs dHJjaFxjZWxsXHBhcmRc wO44Ddhvt9XvEEBkTNI7 MFxzMFxxbFxwbGFpblxm RVtuexD9HQLzBXmbLVGq XGZzMjBcbGFuZzEwMzNc aGljaFxmMVxkYmNoXGYx TPpgG7arHuZeC6HiVZZe MjAgMTIvMTUvMjAyMlxw bGFpblxmMVxmczIwXGxh kmutPEZxCSteJ5eeHpDt NMUriZfnRMvpd7ZjFQNy WGCrSsjohqLhUPg0jqDb XGNlbGxccGFyZFxpbnRi rJisi8SluaMtwKcyEMRs XHFsXHBsYWluXGYwXGZz WtZhyNjmrQ1fNlJcDuAf WPjdLS2wCWEnQ0saoGZp UTHyEDQaS4ppUkSxlI5x aFxmMVxjZjJcZnMyMCA5 WlZpQlZcJrMfbPpblH9t PwWnLuSqNMxyAC5bLEAh T8rlxKWrOZUeKDZzH7xp FgTujI6teHopMTxmAsXc ZnMyMFxsdHJjaFxjZWxs VYcnyOOaGNCdm2kjCZTe QKAtkQSuAPY7aVEwqjNm eZnsgSlxtJ2qAeXlPhAg NFxwbGFpblxmMVxmczIw FPjulsqoLWZaFUdvP2wl SpKkWRQywPuyAJamj5Go XGYxXGZzMjBccGFyfQ== Diagnosis (test code = w9flhQZpNMGrdNJhEHAr 34) I8cyvePoOLXloESeT3Mo dykwSXtaUC6oCJ8wcAtl qHKhsWOnWVVqDkFaj6ch y293qEOml6umHGASqedc bLi8jAuuV07vq5A4Vyqe Y7abFKOgEAkcFWLsXCkf eKXqKAg7GREcjJTgcpVb StAnBXDalHBkfHR0DWZi JZ2qwspmURwuXOeeBOUb ohO0QTCpoGVkF9KkZINd FO7zuyejVJZ0LHngLJZh XIE0HjFaAOEkg8Hjsfq3 MjBccGFyZFxwbGFpblxm czIwXGNmMSBPdXRzaWRl IChEMjItMDIzNjUsIDIg O4PxUFGyHvkQH5dJBHWm YPPIInqtE67jrNBtgIXl GJ1xQTOzRnN6JdVmDvGd RvelOTUvV1ImWBSpxogk qVgaLKjtvU25GsIaUO4d IFBhbmNyZWFzLCBoZWFk HFIhZZIcRFLcaE1gVB1y PMGoDWQqa7OsczC7wO5q Y2Fmq3WczZygeQUlQEWc goCWZjFVS7pRGXBDCNmU IERJRkZFUkVOVElBVEVE WABQM3DEDWSJOMLWP4TJ JrRNLl8CTM5aUTbDPFNg Z36NDEJEDLrkdNVtfR== Comment (test code = b1ehwCRqHGHnoQNgTHAd 9824) X0tpfyBsWHWsrYYeQ1Is hvkgKHivNF6hFI6stZnw sWWzxFJqBEHpHhZau0ft h020zRVux1rsJTZAkjaw tFx5sUpjA50gj1Y6Sopw Z03qeKJrKCB8HGLpLBUq qRPcNTLiTZZ1UWXoeEWo L7nmPSDqRI3wjtrlWUkf VIlmILOdvVF2YWBtwGTt H8TuYMPhDRjmQEVsjqx6 HdHwQu9sqKJjbDxbETlv YXJkXHBsYWluXGZzMjAg YsEhvVDpi7AdmSzcguVz WTCaABD7Xo7piTSyPHIl m4KeurC0eXW4SxjwISW8 Biomarker Block(s) (test u2uzgGKuDXDtjSMzCQMq code = 9841) O1vvipFbTFOsmNBhZ1Ud qvgeTYexNU5mBD1vuGle iHHyjXCtKVEaDsJce4sw p846aKOst2wlGEGMdhrz jSw0iPfsH59ab5Y4Ijot C45rzYKmWFG4SWAeOOBc hAObPKOzYFF5HGCviWTm J1cuHKPvIS6ydcewOBpt FSuwPONkiCI2DJYgzSDr X9IrPTHjHOgqZQVxybe2 EmXwLo6ywIGzqRiaILrh YXJkXHBsYWluXGZzMjAg VDogIEExXHBhcn0= Disclaimer (test code = j3arnEGqBMDyoDJlSbCb 9844) PUOrLRYsm6kaPJQldEGm ZzEwMzNcZnRuYmpcdWMx FOJyQbMwd0mtt819oHWw i4gmYGLePhX8xMQiWGBl wSSdV234AZUlHLygu3lv r4AfHOSgrMYto5L2NILK ocdciNk5rTpeI20uw9L4 VvhbS2upVXOgVNThG4Ic YK1nFCLtItr9GBS1ILO0 ROGaHGQvI7FjVV4lQQJg iSIhUXl9r0humRctXZLe RUB8g3arVTrddvSxAD8r jp2kfFq3s5toeiAnGKNr ARFhyXECWQYbJ6WcvPwq Uy8rmQe9eDenGfayMHM7 Tkl5OU1dpb66nuv6dXgk BEXkrllqZaK4KQghVBZs wyziKZu0TCeiSSTccEV7 RIDaqQBhA1RvHWGkUL4c nnn0OAN1OTdoWTPyRfW3 NDBcaGVhZGVyeTcyMFxm j766UGA1GdKkAY2wC3Ue t7F8hV5bfGBlQUBgkTAq KmIoWDWomr4bhDNtHHhh t6RiIHH1chV0cJSkbJBa BZSxSW47Zmnjf6LpRjcx QYF0BWMohuJtb2Pqh0hx QaDcroUnB8znW8EqEALn NAShRVMnVbKjorVnv4Uk h3YttYGnsLl1j0dxJSRm SDYnmKbph6gnRFH3YUFj D7W2bORhv8pwLMnlLWFy kVI8zeU9XCUxjBPfH1Ax uX9dAQToMP9bjgg8q4ck WXC4OTgxQGOxNyT9yqJ1 NDBcaGVhZGVyeTcyMFxm b413SIO8FqQdBUQpr1Oz D2MdfDmsO98fiFrtP33x IIFnpQlgnO9kdCwxiI7q ZjBcZnMyNFxxbFxwbGFp spoiRVgfwnM2GXwdsipc WCCxNRbaD0axUjJmWZDf zIklDCxuj3GlFJArLWOh OcimotZ3KEEUi33mEVXx n1FyQQMojA3exRWkDFvk pcWrvYA4GRqngsLkPrZj wlPqQCXfkR0lTAOyBZ0z PCJgabEdgq7efbQgOCXc VAUhO5AoknwfnKrpggPi TXPwqn1lkkApLMY1TVIE YE9IWNZiYCVyc20oNCDd jKucoQ5djSLhrhYaOMJk z2QsvX2mmCCVAHQeJ7zd LU1wXPkib6UwhIXqeHFe yIH5FTZvj4MiBfSntbCa qENnwPRrR0NdqFtxH0jx FHUgRZPouoUecWGdh0Dr DMRvwAB5iBJzWD8UXlOD i50lDQFxCNMSchKoXBPr yXjjcVA8huJ4yY2jYcYA ZiBhcHBsaWNhYmxlLCBj h678hf4bsqE2ZYAiGZNe daofb7SoRGXhJIZijX97 UUUeQFJqnr3dxyesvDWc iiMyP8Zxzqh9bS0dMAWa YWluXGYxXGZzMjJcbGFu ZzEwMzNcaGljaFxmMVxk UoTgNDQkWNqqB0opEmAq ZnMyMlxwYXJ9 [facility] Interpretation 2023-05-31 14:43:38 Test Item Value Reference Range Interpretation Comments Materials Received (test e2kopBIvDWGzqGQlFgHz code = 9973) UBErJPLkp6fhUKBysGBc ZzEwMzNcZnRuYmpcdWMx FSYqLfWyo3cve470aUOl h0erHTEjFfW4oDKpQVOo aBYkH966ISMlTOygs4mi d5MzLVKbwPBqg9A3GMYY viqebBm7eFwoF07nk9T8 RoeeR5bwODTtSCUtB9Wd PB8eTDNuGxj5QFV9XKC6 USPkBNStP4AhKI3pURZa nQHzXBe3b5cjrEczYNFb JQY7i8gfHVivutAvZC5o bs1moUi4g5sdwiYcNNDx BLDvvTTGRCSpW4WshEfk Vi6zzJn7oTngHzelYZT9 Suq7NF9urt15wxe9eFsf DZLchfklUhQ9MGtkMNCp viyxDSc3EDggISVkkTxl MFxtYXJncjcyMFxtYXJn yOC3DJQnwCNbR4RuVTUb MWbkNFEhwts4PzWcZr6t oOXnlTvwZNmzf6jvv1xb uIKsBwo4PERsBuQdBocx RHtkp9Hyq3foFHVswj8y YLD0nFBtcKgdd8E2aVSh PECqoLIddfOySKChbe17 uLZcgEBzuHUvzt4pgiHc gPJyjDHhAUZ2uMAuhfYu MVHeoTHdALFeGR8afMWt BIBdzL3ljfmrOBYyJpRv ufxsOKGnjShmgdGjQv7m cQkvKDN6UUpiG2sjlM8g HyV8ETrpQ2wvyZ1aBNn9 HNoayYK5DXKzqB3gMH6q lnbyj2cuTvUjZU8apugs k6twYwTiEW6wanm2n5nx QNR4CHsaYOCoKgK0inO4 NDBcaGVhZGVyeTcyMFxm q108SNN0SnNzEAUjc8Eq A5ZwqJjjY00lvFuxS34l LLZsaRbxfN3qiImlzR6g DfXzTrTtZHy1vp40NYa5 bgasbMznDAk7asRhRZTo ODS1HBDxjVJxRKOsA2s3 yuRfMSUiKAJ3GUQljMDp JTJoJ9z1ujDvTFI2OZw3 cnBhZGRmdDNcdHJwYWRk YjBcdHJwYWRkZmIzXHRy rHIkrUFxfKUqjG7rkLif CMXqoCGbgJ5pJYN0ZBSc cmgzMjBcdHJoZHJcbHRy rt12VHEkdwYanQZruFrd rMUzXEU0DUHfHRLhTFEs AWT8CVWsZlHsdgTxYDnn bGJyZHJiXGJyZHJzXGJy UWK8NFWlDiLvepIcYJsy bGJyZHJsXGJyZHJzXGJy QKF5VPZwZtBnmmCmJPkw bGJyZHJyXGJyZHJzXGJy FHK6YTIjSwYlyrYhNDnf bHBhZHQxMFxjbHBhZGZ0 H5cqdQZjVKGjSXitbMNh EUUiS7gbeXHpTAeoDOGy cGFkZmwzXGNscGFkYjBc G8osZAToTtAvW9RlbSx4 MDAwXGNsdmVydGFsdFxj qKEcYYF1YMOaJTZvXQLc EAS6EQZpGwYuivBiDXvm bGJyZHJiXGJyZHJzXGJy FBC0RSFzSbDqoaZvHYuq bGJyZHJsXGJyZHJzXGJy PMB6QUPmHeGdvmNmDIup bGJyZHJyXGJyZHJzXGJy BSK0TODvYpQhmdHvIIgo bHBhZHQxMFxjbHBhZGZ0 U0qlnWBbZVQyFNryoDIu MDAxA2oxtTQhOHicHZMg cGFkZmwzXGNscGFkYjBc R1pbFLVcFjGxS4AyrBj3 NjAwXGNsdmVydGFsdFxj eXToPTR3VCLhSEUjPDXt GTB2LCMkDvDfwfThRNjt bGJyZHJiXGJyZHJzXGJy XHK2CJYlLmQsrcCtYLbe bGJyZHJsXGJyZHJzXGJy ZXU5GVCiHnFvrhJmZEsu bGJyZHJyXGJyZHJzXGJy LSV8VPWkGaXibuJxOIln bHBhZHQxMFxjbHBhZGZ0 B9lmcANcJXLmAWjkdPWb CBLnE7jqsYXpDIctOWOh cGFkZmwzXGNscGFkYjBc Z3shPIJpDmHuW2UjxDr0 ZdDqRKOfyyKpdL06Zzuj f7RzYAQqTQF1SDoxFTbj bFxwbGFpblxmMVxmczIw IErwbtcdHLFkYTutP4rc TfIbJXDgkDbsTFksz4Aj XGYxXGNmMlxmczIwXGIg GZNgUVOtiB3tNhndZ7Ba vU0eRIzlYgevM5liXPZf f1YbyE6qNGzuaGXsizgv MVxmczIwXGxhbmcxMDMz JMszB3ijYrQjHFUtwXtx CIryu8KlRJZaZGMhNulk nbFmIJp1yfWpPHIinYru mOExISrwtnHdjVwmd8Wm ktNtpLapGESoIMi6inRh faknyYq9yJDvgOteSTBa wAswbN3vTkAbTaUrKIhy bGFpblxmMVxmczIwXGxh oibrBDNhBLeoF6gfEqZx FGWmtDceWRdik9MuPWOw HECpFhspumHcPFKmU42y bGVjdGVkXHBsYWluXGYx XGZzMjBcbGFuZzEwMzNc aGljaFxmMVxkYmNoXGYx PXbbM5xuNxTeP3LwPYWs BcJsaGTgP6haA5QuyUab YXJkXGludGJsXHNzcGFy ZCJ8eWPwviHreYRvsBVt ILRfBPwtETS7uQXfbdns eYOegnbzFHielxZ8VAJz YWluXGYxXGZzMjBcbGFu ZzEwMzNcaGljaFxmMVxk VcDzDPApCOfpL2suGkIz A5HoFUDzHjKvGjIOATTg aXZlZFxwbGFpblxmMVxm czIwXGxhbmcxMDMzXGhp Z4uxLwKfHUQadWfkLVow r2CsHSVsWUExHgkbihSe EWb9fqFoJESiiLwshS09 Yrhdry33DFUxs7vyNLYj P0FvzORdCEMupHZwRIvw MDhcdHJwYWRkZmwzXHRy cGFkZHIxMDhcdHJwYWRk ZnIzXHRycGFkZHQwXHRy xFPcYDC8T5f2knIoHQIj JTf3vyFyJOIeIfHwpJPw WLW3HEb5KadcduT2xDPh O8b3CqxrvlInKThnqJGv qb27NRAjvuVzsQLctWew mAFdRZK0YZLeXTYeNYMt UGX2JBIgArAtioFcCSza bGJyZHJiXGJyZHJzXGJy JRF7PZMsNxTvjsTqUKky bGJyZHJsXGJyZHJzXGJy RGJ3DSIxSfNzfsLiVXla bGJyZHJyXGJyZHJzXGJy WZD3TRHkEdQlsuOrASgi bHBhZHQxMFxjbHBhZGZ0 R2cibYAfGILzHDnvhRUk KEZwA2ygiHHkLJatPMWx cGFkZmwzXGNscGFkYjBc K7ybLOPvZqImQ5ZlqLl8 MDAwXGNsdmVydGFsdFxj dKJbFOG2TUGzCHStZDGm TEK7VOTbIfJctfGwHCej bGJyZHJiXGJyZHJzXGJy NCR7FVDbBuDbpiAfINxa bGJyZHJsXGJyZHJzXGJy LYS8SCHaEvKsqrIfDUcn bGJyZHJyXGJyZHJzXGJy ARC1DHBiMtIyjhOoQWkj bHBhZHQxMFxjbHBhZGZ0 L4yppDNvAMVvSPozgMJh JDPkO2jlyDBlDVcgJEZf cGFkZmwzXGNscGFkYjBc K0lpTRKvPgLfI0EqiQd1 NjAwXGNsdmVydGFsdFxj jTVyALZ3PVDiOMSxGWAj NSF0XZOiSoGocbAdDTpf bGJyZHJiXGJyZHJzXGJy OZS1HIWbDlSwslFjBWop bGJyZHJsXGJyZHJzXGJy VLL0ZONcXfCgfhIpDZek bGJyZHJyXGJyZHJzXGJy UBZ2WVAlOwBecsAdKKld bHBhZHQxMFxjbHBhZGZ0 N0uwlEYvOXZoHHaetBYg IPQpE5rhaHMhNNzfNEOd cGFkZmwzXGNscGFkYjBc Q2ioMVXcMxTaB4UvaCv0 UkXbYNVxccUiwE99Uiqa c9KyTDWqASD1TQnoEXdc bFxwbGFpblxmMFxmczI0 XHBsYWluXGYxXGZzMjBc bGFuZzEwMzNcaGljaFxm FMwpRoFpWNYjNWtiH9jl XtQoX8SkAIPeScVpUJ7y EMDcCNInVaL4XORuTXUT VJHfZFXVM8PCHscpPGDB S8BbfEydxE5oFgUdOaUg MZlvNY9hFRRaV2gpjEJq NCWbBEAgH7xnTrUkbG7l aFxmMVxjZjJcZnMyMFxs dHJjaFxjZWxsXHBhcmRc qL10Apxne3KgSKLcEWQ0 MFxzMFxxbFxwbGFpblxm KVnfraP5MMCoMLzmVFXk XGZzMjBcbGFuZzEwMzNc aGljaFxmMVxkYmNoXGYx BFhbN7fiTbHvA1VuTBYr MjAgMTIvMTUvMjAyMlxw bGFpblxmMVxmczIwXGxh ucljNCQgYRxgH9osNdJu SZLcdOzeSSewt9EjDPEx IPYaBrrxppYfEDi8kcNw XGNlbGxccGFyZFxpbnRi iTgnz5DilnKzdMnnNUOo XHFsXHBsYWluXGYwXGZz JyIaaHbbeQ2nSeKdDtIp AVtzGR6tRWGyL5wzpIZi YZAbMQAoO9vmGfHnlR7q aFxmMVxjZjJcZnMyMCA5 XlZoVsKjQkShdQkirD9n TyAkNjSmDXcaMX9hNVCg E1fepAImHTGeKJMkR1ja WxPozJ5zmWoqAQclPyOl ZnMyMFxsdHJjaFxjZWxs SQahjYRpXURpv0vdQTJv ETBpaZScALA2cYPbnaBy uEhwvQvjhU4fPnGhKbJx NFxwbGFpblxmMVxmczIw CQlagvnpXCBnFCfwY1wr QpToTTQwvAtwDWvwy5Bk XGYxXGZzMjBccGFyfQ== Diagnosis (test code = c9lrzURnKJDwnQTlJAPb 34) D6etwzQqWMFjfMYjT8Hh mjguTSteOA3xDX3dtItk wNBldMPuOWIgWvKbq1km y306wYDqf4duHREOltaf uHs7nRsjC80kn7Z2Redi L7vmIEFyUOvdGBEyJIht dRNaTLq3EDCfuPRtgnKq WsIzJJGuiCOwbTD0SRMx UG4abbbkDYdxLAqoEVOz plC0RODuqAGsN3TyLPOx NX6duhykSSZ4ETymLARz MER1XtRtMULny5Ljipf6 MjBccGFyZFxwbGFpblxm czIwXGNmMSBPdXRzaWRl IChEMjItMDIzNjUsIDIg H7WlYYDbGmyYV1jYSHYu OZPKXkhiC82wqMAfbXOu VQ9fTKBtHuJ0BnKwMcAj PrfnNQZiE4ZsOFIktxjx uZcfYMcskW41ZrBgRF9n IFBhbmNyZWFzLCBoZWFk TCSgEJLjGRDskN9hXN2u TKVjIJWon6GpppB7wL8i I2Rht7DglNbncCYoWBZn kpFBOwWAL8pFFDXNJPrI IERJRkZFUkVOVElBVEVE VVDXY6JNIAWZNVHUR9QL KwVTQd3OET5rSOxMGMHq Z89SISYXUYauaTBojN== Comment (test code = a0cxkHIuLBHhzXQkXIPt 9835) Z5tepvPnMWWcwVXvX1Vk swosWBgrXY7dAT4smJij sSAacKWyXKSpPbBnb7ud k529iIAvn5pwGVDLiebh gLy4sIodV71yf1R1Fcbn X31pxKTiSSV2NSZnXWAe hOAeZUOcUMD4BSXbiCJv R3hqKDRlKE3qemnwRWee OKriXYLpsSO5DEMhbEBk P8CyAGSjCKzqNYKsxri0 PlDlTq0hlFJmtQyeKVax YXJkXHBsYWluXGZzMjAg SaYdfFBsn4DvrTxngdYq SDDnLJI2Hi9rcLNzBBRz d9EyxmL7tHW3AlsfLKH1 Biomarker Block(s) (test o4fvwWGhQNTdhVLfPVJv code = 9841) P3gjxrSaYALkpMBuQ3Gy nrraXUloMN6dUV2zpBsk pLGxmHZjZJHoOuRmh4az a920iBPyf5csVEKOvwql pYv9dVawX25hu3V8Lqey H38wvGIbRDK9ATKsKCKv nKOhVCKiJMV5KDJjlLIe W1zrJEHoZT4nwsyiOQuj TLsjFJJubOS9OZGwuRAm E5WyIMUfAXhnEIGczwz3 NpAmGh8umBExzSknWUjf YXJkXHBsYWluXGZzMjAg VDogIEExXHBhcn0= Disclaimer (test code = f5tomGBkKGLisTXhBvFf 9844) CWSfOMKnd0rlBZRnlZOw ZzEwMzNcZnRuYmpcdWMx DFIiFyQoc9ynl307uKGq u8psGWQpKaX5rDBeJFKb xWDqA647NGAaWZthi4tn j1NvNTOiiEYpg5V5SJGR ewatkXp1oGwxB08gl4U5 JicpY4dmAJBgXITwA3Zq XW3iNKVoBwv9ZAS8MTN0 MAPeTTCdR8IbYB4pEHVu tXZqTPt3k2ditErkYMIm ZYW3y6uvFTtcbkFmQP8c ln0jfTp7c3xxefUhYNFc NALmiBCEIWScB9AbiCav Im1lzRa9iNmnNqqhZYC5 Yav5UK6zzb33kxz5nThk MFMnzjmlFaL9TRmhSROs gunqQHl2WNqqRKSdyLB8 PQJtjAUjI4YwKUKsBE6n gdt2TJS2HOmbSTWoJuS0 NDBcaGVhZGVyeTcyMFxm s500CMP4MqAeZM6iP5Rg j4I2lA6dsMCrKURzkHAd AtYiFOHjru6adEXpBFwy d3IvHOY2chI2bJBfwWJz QGUhPR57Amjkl5DqElme GCQ4KBEdbhBwp7Zww4dv BmYdqgJhP8djM4AfIFHg LMHqYWErIxOkyaHba1Xq t8QlsGWywOg0s8waPRNg ABGsbGtkb8pvMWE3OHYe G6D8oEXtr5udCLlnSSZa tVL6qhH7NJGmoXEdG1Gf oZ0rACVfQB4hwjv3w6vv PGI5YCqwWITgMpH2zrN0 NDBcaGVhZGVyeTcyMFxm w502LKW4TkRvUQHdj2Nq U7HbyHsyU87yeYuhB55y PPEfdJzblB7ofJgnyM3h ZjBcZnMyNFxxbFxwbGFp rjppTCafwzS0IGsyofwf TYRuASflC5pzItUnDSPd eLthOYrbu3IiMWUcVDWy MukmayF6ODVPh77fXYYr s8NzYJFlyR2ooYQuOQel qqAyuSG3QWrxrfWgDxQf goDlXUSshU0vBEOdFZ5r LQGlcsJsvh1fwmSfZNBs XYMmY9DebmawxNouttCt EMQqgb4znrMgMQL1DEKP BW0JJZMeVEJma95fBUEb cRoosR5smZQijrXqNYDy k5OlhR5phFHFVYYrF1sy DJ6tIPygv3IjeMDhwUMz fUB4NEWma4ZlHtXebeFn sAEybLZmN4WwyHgjJ9tc PPZkGZHxhvYccIXkv3Ap BRThfNQ4jHDaBH6PWcGA n22sTXBdOFSVlaBsPVWu lActnMA5hpC1cR4eOzSF ZiBhcHBsaWNhYmxlLCBj v120hw2sdsL2IDNwRBGt zorpz8PiQASiAZNwgI33 XINjKHPitg5eomtmuWRb jzMqO4Atajc2fJ2fLORo YWluXGYxXGZzMjJcbGFu ZzEwMzNcaGljaFxmMVxk HwXjUXCmZUqfW9zpDkEo ZnMyMlxwYXJ9 [facility] NGS Blood [id number] 14:38:47 Test Item Value Reference Range Interpretation Comments Molecular Diagnostics (Received) (test Yes code = 8400) [facility] NGS Blood [id number] 14:38:47 Test Item Value Reference Range Interpretation Comments Molecular Diagnostics (Received) (test Yes code = 8400) [facility] ([facility]ENING) (anti-HBc total Ig; HBcAb total Ig)2023-05-18 14:19:27 Test Item Value Reference Range Interpretation Comments HBcAb. (test code = 5742) Non Reactive Non Reactive [facility] Total Ig Core Ab (SCREENING) (anti-HBc total Ig; HBcAb total Ig)2023-05-18 14:19:27 Test Item Value Reference Range Interpretation Comments HBcAb. (test code = 5742) Non Reactive Non Reactive [facility] Antibody 2023-05-18 14:19:07 Test Item Value Reference Range Interpretation Comments HBs Ab (test code = 13636) Non Reactive Non Reactive [facility] 2023-05-18 14:19:07 Test Item Value Reference Range Interpretation Comments HBs Ab (test code = 30610) Non Reactive Non Reactive [facility] 10:51:33 Test Item Value Reference Range Interpretation Comments Case Report (test code Medical Cytology = 104) Report Case: [id number] Authorizing Provider: Effie Pablo MD Collected: 09/01/2022 04:20 PM Ordering Location: [address] Received: 09/02/2022 08:59 AM Service Pathologist: Jose Grover MD Specimen: Common Bile Duct DIAGNOSIS (test code = a5gdlYWkJCZgzQX2ZqPpXD 3220) Sbv7zxl6JclDOlwJGiEBtr mMWogiZpxo02tSH9jM65EB 5vNKBeWjZ2ODOjbmD6Lqj1 HSYwTJFkbYKfR499j0gei4 ajblSgmZV1uGovOKKkkuak IlA3HDecUZUygpezSSp1JN ipVHDygNC3OKSslVFzA9Gt EEYtSX5azye7WOC4SQkuSN XyEpG8EDCblJTdEXMwtQot THbbe634YIP4HeQhYOUqwx QusXfgkB2pZzAqHGZZJ17C X39hGfbYUJZOYICRCMTCIP SWFQ4YQEgUBEQZM2PTGcAc OlxwYXIgICAgLUFUWVBJQ0 VOWWHfwyMrSCNqF2GjrvOu b4CqSVXwwXPfCRmgk6FxoF QgKI8kAWZ3jRSaJ4UyEZI6 D4XxiZLagGl6sZDhnGZhKT NlbGxzIHByZXNlbnQuXHBh vkZjLKEbIfVqf2fwt5ZvQV BpAR1xH05iLczbcLKtxLO6 oFOxDBKnrSJmXNwfkB8aj8 Ohso0woJVoYGTjKWCWJ5Ld aVs9EZEmfDr6oVJuAPVwKY WjdDHsAZWhZZYtE01qjQFd xJ4rzCInCSOjDqCpaSRwQX GpAjr9UHDjgCQyKWSvMtEy Z0yfxwriSkOPTLSxi6zoY3 gmpIHWhEVnE4PjJWvnbnHq GHjmOInrHyAqCVc2TC92Mb YxXHBhcn0= COMMENT (test code = t9lblIPxKFEafOI1ShCaBV 3359) Swp2uwv2JogIDviEIxBRfy rALpiyWzur31rUM1zT79UR 5lRYBiOpC4FMBxssH2Ugs2 KDIwUCTlkAOmZ643y6dxk6 vkniAkuVI0aJygQKKjhrus LzU3VRffSCLfpwdjLQx6TH vxQSYruWC2NCMvjUClJ0Vc NXNrSS9cpkp3MRY2LPbtYA IkUkT3JGMcyHOeQXAbvBpm TWjij283QNC6EnAjLLVovl WwcLvkmM6jLuBxUMQYK6Tm xOKojERmvpPcW2igoQPnrJ BjxRGjp7UceCelPSu2PNB3 yVRjN8ZiNPfzyKpzXT69Y9 pxTHXtMP5qEYHcZB1ydkPc IU12D5mnUUBxtAAnJtLjbo KdXWFno6DxYBkrlSjoWOC0 J8IeuQDehPv6kIIlvONzVE jmOVQbWC2iBUZtVC61ZTSi gUr2fLRcwXM4CHTlHXLhaF PobtFcoZX1wEFnWKCgBSIq V1Ibbqg1MGVpt81uCG0qCJ CrtHjrApweN0wbeDTblPCo cGFyZWQuIFBsZWFzZSBzZW Rlq6IrX7jxWOhkqIP4zZ0d n9n5TFJtn7UvNONbGQSbHp Y9CDXdxi2= CPT Code(s) (test code t1ujuFHeFGEcqRI9QbXeUB = 3357) Ela2ahe3SdrIMlsFWoIScz mUJspbRqsc24dDW3kM20JF 1rRNQkHnK2IWIwfnX4Imi2 RWFxENCweGGjD755x3vkq8 hpzvXcmLW6nHtxRAVjfwko AcD6AOxgAJEqkbvzATf3FM naOLEndAL0XXUduCRwH1Hs KKZeTU1iopy0NNR3QZkzXV MvOcE6BHVdmYQaFJLpkNtx MJahl288AVU6TfDvCRCdgq RidNrbnU0gLkOuCFB6FSBs OFxwYXJ9 CLINICAL DATA (test e3edsWSbDIQsmNM5HyZmLC code = 3352) Sqx5wio9GaqMIbpNLlLXyt hKLgbtOmrr26pXG2sQ84AC 5zXHOcFoA8IJSvuhN7Adi6 RTLnWDDvhHTdM256s4mjq0 jhcoOejZJ6vKtnFKTtlkcs HkW0UIzhKZBuaokvJQo4FJ ekJUHvfJJ3KRBtiHEuF3Ub FUVgSZ1cefj2YWI8SBmxHP CyLwB5OACphIXcFQSndYjp JSrsi055MKQ6GhUeVIFmgk ZhuFffbF9qItEsIFX4KwOY IHdpdGggSFROLCBidXQgb3 UkJXE5qQNlBWrkLYy5rZcj LIFcECDstxNlKZB5oWPxRQ OajW3qzWilr5VcgLJmC6Tb v4HcopHtEZZqo16deuVxOF XloJ8rFH6TX1Oph0gfb2Nr WVCbcDMoM8EfNJBmOsAiGB GcRN0ws8Hbf5l5eJJarqWm KGdlsGL4uSGzCD2kITL5uP JhaGVwYXRpYyBiaWxpYXJ5 WFXguIX3rX3vZXS0rFVvGZ RiPVBiz2qaKPVUIskomFKl QbOrLBEWBQH5UlatWCpSTW D8KFtkRIfVZZF9Rg7mUb0r lkV0ytIjD0ZfVBAIDA2wnj VhdGljIGhlYWQgbWFzcyAy ApkuL08sbVPiEaUuM68bxY NvpiQcOiiuXY3oVTPfpsVx lprgaeGooJq4YDOcluVevy Xmw36cz6yuVXPjlIAcPMIk PNCnWO0yGHIglnYmjPNavL Xnb3OwJXAikfWbSZXep5Hw pgXort5xTBhqLATvrt0= SPECIMEN SOURCE (test v7rohYHfDVBxnWU5WqEhRT code = 3377) Sxp2hkj5SktNLruPBiJFmp rMBovkRugv67tFV8yI65NE 0eEGOsOhD3PXSukzN9Pyu6 ACCsALYoaMIlF363z0tfl2 yfbxWutXV1nHsjDQMpeoxm StY2IZgdJVEyshalABu6JN qzXMKilNF2ORPaqOHwL8Ts PQDuWG8ljzd4RWY3IAkwFP EpRxC8WHZgeRWwYGCcdXhs GDiet727URN5FeMvEJJpxd EtzJuapJ7kBjQsFSIEP90B P95rGmmKAZHGWBNCPONGEJ UJQM3YOGFbra5= GROSS DESCRIPTION (test j0ycwYIaRDUefVP2BwXbOT code = [id number]) Mdg1nik0IriPQepDJmRMhh dUHnhxHwyw54fHO5pE17CL 2aRMKsKyZ8YAAorlS7Egw1 ZKLrLOWiqNLmB211m0usw3 ciiyIwaRZ0iNqtNHBkqhwh LrM5BPclFSDndtbrFRj7TM vwJZZccGA0KPOmcOPaN1Zi UITbMT1jcqh7XQV3IJokOH RgDbX8FTSyoUJmFQNvjRga IThqq938ZDJ2JoKrQKDydd N5VQcePFXkY9YnA6JtGNoq XZE2UDCgUEKyTSCgQKSaKN FhLZykkfM7d8szWZLxkVZn YXJ1AOjdfYPoVUAvMKLwPM akAiVHPxGjFyU3WfD2YKf4 KuJ9BHm7OWINHmLxTvEsJo U8SHp3NtevNXv5FMa1MBrW IlI6GEljZJapOcJtNVRfVz HfTMj9NMAlFEefoPSiZSIf MBFcGNrpBDdlX54npQszzR 2rPpIhQBUATbKBj95pz16h BvjsMOMUzSW4ObzrDOMcSi MyMCBSZWNlaXZlZCAxIGJy dXNoIHRpcCBpbiAxMCBtbH NrA8q2t3NlA7riquGlChHm spJrHJMcXHShBKO9eA9boM izbbolsk93CVXde0KkrDUa v8UpM5SizXFsaV8kjs17OY AbjHTzLXB2KW6byCgaLKJo V7EvF1ArunR8DPGase9= MICROSCOPIC DESCRIPTION b8zpfFYiJESjcTI9SvEqKU (test code = 3371) Mky3vwy2BlqZTszYTnHNot iSNiobHtkq37pJP3lU25TP 7gIUVdOlW6HISfvlE8Pmj7 YYGbNBFacKUkA250z7fyj2 zzcvTrhCE8nYlfDQVczjwe XuB3BXwfOKHrbpklIRy9EZ laMCJwwUT5WTKnnWFdT1Jv WXLlBY8rwro5VUP3QAciUY UtIxF1VGZuuTMlWPHliVez UVcag347ULJ6EnQiDUWixu WiaIhfsA0yLyItEFVNBVNo y7OwEALiZKDwoufmQMCvHN Bhcn0= STATEMENT OF ADEQUACY Satisfactory (test code = 2757) Gross assessment was [facility] performed at (test code [facility], = 2777) Department of Pathology, [address] [place] [address] 85991, Technical component was [facility] performed at ([facility], = 2778) Department of Pathology, [address] [place] [address] 48107, Professional component [facility] was performed at ([facility], code = 2779) Department of Pathology, [address] [place] [id number], [facility]51[facility]33 Test Item Value Reference Range Interpretation Comments Case Report (test code Medical Cytology = 104) Report Case: [id number] Authorizing Provider: Effie Pablo MD Collected: 09/01/2022 04:20 PM Ordering Location: [address] Received: 09/02/2022 08:59 AM Service Pathologist: Jose Grover MD Specimen: Common Bile Duct DIAGNOSIS (test code = r5gdsOUfLIBgaNN3KyUsLH 3220) Ape8lgd2YitYZjrPKwJNni vMIphiRbhg27rWI9rL56LX 3eLLVsKdB6RGEfniU5Rwg8 UENvSOGkjLOwJ050l2dkw9 vuuiXqmII6fJxgBLOqdamq ObG8AWaiBBXravkwIJg6OD wzVYKzdRK2BRZuyGLiM7Ok VKBbZB5geif3KMX4EEvmBO XfCxL4VGBgoNFjPSFyjAnt KVbdw338QXX4DvNeDNUrfm LwnJzesQ5sLkIjVFZRK71Z V51uVuiSOJRMFCHEGVSQVU YFTO4QQMrGURLOS1DUUiLt OlxwYXIgICAgLUFUWVBJQ0 MACQMqhxMzUPNaM5BguqIo b0BwKZHxmMSaEZhos3WwwT UsHA5mOTP8cIAjH8VgUHC9 M2VtiSTkpGk8zIJugHStPJ NlbGxzIHByZXNlbnQuXHBh jxBsVGZmUfCla0tya8LyLW LwZQ5fS64cBdowzJDmsQS7 vKSpVFDadBIhZEaxaT4ep9 Oiwv7hiHPpGZUlXKKGQ3Yy jEr2ZWLwcEt4dLDkEOXaUS ObeLUbTZHbCAMaD26krILf rY9mnLSdTEHdXnQenINePE UbYdf4KPCftWBeZGOcGtQv H4txbghoCsTRPYWvv5rhE0 braCZTzLOjK7EhTEjggyBf FAkhEAldLxThCCd5AY70Kc YxXHBhcn0= COMMENT (test code = a7isxUXeUHVsfOE9RvNjZP 3102) Vuo3eot1XjxXSjfVDiEMxh pRJaqjGeud90fQG9qV29SC 5eJBRgJkE2BOUypcH1Yew4 RYAfQRQryPJjX868r8yra2 haqnDjyUB9tQuxGMOqqitg NvU7NQvtUDHrfxbcSXa2VR ugKFKrqJD4IWQqvDWgQ3Kh DMElFD9gysw5HJE0UGvfWY MgVqG7LGMpoORxSSNqtTnz AVffh247CUE6MpQyVQWcnj NzaJutxZ2wCaWrHKGFA2Hh dYKxqUXkwhZkQ9incGDulB ByrSXsq5XkkNyyUFe7KEU4 uEZgY2XaZHwjmQusWB16R4 isHQBpHO0yMEJjLG0cpwSx FS76L6szUAZxiOSfFxSqyy HqAYSrp5LzKZevnDbbFZM6 X1JbyIPvqPn7jEVplLYcOS zjMFCvXN7pINOmOS57CDQr xJo4yLBbvZE4ANVpSVSpgP YtxcSwtUY1lUCcUATdPTYg A3Hykxc3JLGau42sDP3uFR QxiUjrNmuqO6kgkLDpsCKa cGFyZWQuIFBsZWFzZSBzZW Avf3UdS3fpLYcnoHL2mS4s d4g2LZXpi5OjOZFuYGOwYn P3OJYpsq2= CPT Code(s) (test code h1dysUMaIYWhcYE0LqJdAR = 3357) Cyk9nsz0OyvRIgnUZyGVas gCBysoAlaz25wSW1iR44PA 3fXAWtZhQ2FCBkfzS4Xdq2 CFIjFKSotUDwM035b5fuu0 sgglFubIE3bWhbUSLpieyo JtW5LWaqBRIlqlbjHNj4HM xxKPBwwUS6NAOgvTMzL8Rm WERkID3ooaw0GSA0NBhwAK YxNeE6GHRxoJQkRUImpYdc ZSfxs105ZUX9GnQtLTKkim XkdRtauH9cGeRnKAO2IYEa OFxwYXJ9 CLINICAL DATA (test r5fpwVHjXWQlqAW0VwVrYN code = 3356) Qvx4unr6UfrHPanGTbOQgq bWVbtaMkdw96vNS8bH66ZZ 3xZQYxPnH9YKOpucW7Eqy5 JZPcYCDzlJKbF197l3tzz3 nreyVngUB6sWshIVMbehfl IoG5MMthDXLbakgkQPb2TZ qyXFGkuBM6BBNyrJRlY5El PIFuAK6tmst7HSP6XNtxCF DeZtW1ASWtnXDsZHJhcOvq LWgcr291FTB2OpRfLHSstx VmpElowJ1pNkRuPJQ7CdPH IHdpdGggSFROLCBidXQgb3 SgXVQ7rRLlVEqhWVh9aEfb SWKjBAMqmsHwTZT0wGDkSV DqlA8mqSitq8LmkOVwW9Nq s4IweuMgAERmx13ynnRnTV IjqF2qCI4LB5Wia1ifk4Yd NKAesCYkI4TuXNDiUbXaXE QeOG4te4Zmj7i5eEDktvKc FMdxaED8hXIyZN6yZGR7bX JhaGVwYXRpYyBiaWxpYXJ5 MVIyoAS4sA3nIJI2eQAhNB RfNHQzt4yeYHMQXwwuyPCu RrYnGTHWQZK8QjqiQRvHHT O3KKcaUBqXSRU0Ia2eZk8r pqH3awNmQ7HxSYZZUJ3zpp VhdGljIGhlYWQgbWFzcyAy MbepR18hpXJuEnHpC49ecO MehgZcUpywYM8yGCHwwqQm ibuoqlVvuQq7SHSnbdIgoi Mkg95dt7urCAIocQDfRLVl RMHgJA9qKOHxlsOfmDMdsW Sjg0GkXEDmwlTgXHHph6Hb maKsdt3iFVakKOKmvb5= SPECIMEN SOURCE (test w9juuBIkPIKltDW7MuGuJP code = 3377) Uyf9wcw2DjaFTcsBBqQLuh lRNktaVtqv01hZZ0xF22HS 5mSEJqRoA2GFFmwxI6Fnd4 EDQxPUTszNIsX209g0sbc1 mqjpAxjYP9gSgdUFSixhss FaS6QZhbDCUzharsCVa9LL obHEBjaMG6QFTnaBQuE2Sx NXMuVL3cfvn6YZK1JJkfDM IgIfS2UWQrmZUdVXYkmXyr SHqkq248EUD4LgJgQDHput CebKxxlH6jGmYxMAGMQ71E H75vVukUEEQWASXOIJBNYZ BITJ4SJWZwfu6= GROSS DESCRIPTION (test b9nbbGGpUIIlkWI2RxGnSM code = [id number]) Jop4gmn6CplUOuyOMmYLbj oJExibIlvl10lTE6cF51OK 8aBDWtBrG1AOCkpoD4Aww9 GRByAAOueDFqR522n6bnb7 puyfAwoJG1uUxjIXGbbghw CyD7CZqnIQTklslpITk4PJ czUTEbvUN4WDQgvEKwK5Gz XJRdTE1ofxi8TYS1PFlzUK VxAwA4QLZstYFbECDaeKfi LZazv954WLP9HzDoPMCxzp Q6CTbrPDZsL2LhE5GaZVoz UJZ0LELiWVIzUJJtNNUmNN QjETghnqG4m1oaVSWcfSRv TDM6NNcnvYHcJDMwALHnHP yqYyIXXaEeGbE3NeP7QCm2 HmR6OMa2QIICWmAmKuJxDo Q8BIt4SslsNCp2RLk4HYyF PeI1VLcvXRgxVlOrQZJhWr XmRNi9CPIhRGdvrNPqUFQl ZJYaNVteNWxqC62ciSbvmR 4eUoBgRWIDYvXXe15xh78z DguwAMWPwTR7UifkJLZdPd MyMCBSZWNlaXZlZCAxIGJy dXNoIHRpcCBpbiAxMCBtbH ExX1x1m1KxM2rnmjXfXlKo wxYaQTFxNLSzDEV8pF5nkM qbplvlmm83OBMap3MizHOa j8NnX1YliGXplU0eel13UM ZyoDQkHGD6HH6dkCjgFUNx R3WsM1TkplA3QZVkla9= MICROSCOPIC DESCRIPTION h1tjjWIeBLRrkSR8XzIaPP (test code = 3371) Eny7jre4XwqVEsvKUvHGdp hVYrbxCely33uUK5oW91YT 5oMSRjRxL0HCBoqaN3Qqt6 JLPtAILolIKtG448w5zzm2 rzxxStfKS7cBweGBViwtna FdE5CIvuDWLbcjxkBUx6OV voGWHtoGG6JCBbxMCbG0Eb HEImYY5lpav6FSJ3DXabKD UyPvU1WIDdtFWrXQOghHlk WGncl767HYG3DjZmNSJujd PyyBpnhW3gOgUtLRTESEDm i9NjDSXdUOZnwsonVSDyXR Bhcn0= STATEMENT OF ADEQUACY Satisfactory (test code = 2757) Gross assessment was [facility] performed at ([facility], = 2777) Department of Pathology, [address] [place] [address] 63161, Technical component was [facility] performed at ([facility], = 2778) Department of Pathology, [address] [place] [address] 94452, Professional component [facility] was performed at ([facility], code = 2779) Department of Pathology, [address] [place] [address], [facility] 10:51:33Medical Cytology Report Case: [id number] Authorizing Provider: Effie Pablo MD Collected: 04:20 PM Ordering Location: [address] Received: 09/02/2022 08:59 AM Service Pathologist: Jose Grover MD Specimen: Common Bile Duct COMMON BILE DUCT BRUSHING (CYTOSPINS): -ATYPICAL Scant superficial strips of atypical ductal epithelial cells present. Background benign biliary type epithelium seen. Scantly cellular specimen, see comment. Signing Pathologist Direct Phone Line: [phone] signed by Jose Grover MD for Negrita Calvo on 09/07/2022 at 10:51 AMPreliminary result electronically signed by Jose Grover MD for Negrita Calvo on 09/05/2022 at 11:01 AMScant superficial strips of mildly atypical (mild nuclear enlargement, nuclear membrane abnormality) ductal epithelium is seen. Scant cellularity precludes further characterization. No cell block is prepared. Please see surgical pathology case [id number] M with HTN, but otherwise healthy, presented [...] red;prepared 2 cytospins, not enough for cell block.Performed.[facility], Department of Pathology, [address] [place] [id number], [facility], [address] [place] [address], [facility], [facility], [address] [place] [address], Tel [place], [id number] 10:00:00Reason for exam:->bile duct disease [facility] : 1970 Sex: MAn imaging unit was utilized for this procedure. No radiologist interpretation was requested. Refer to the EMR for findings. Refer to PACS for any patient radiation dose information.BASIC METABOLIC [id number] 06:31:40 Test Item Value Reference Range Interpretation [...] not appl icable for dialysis patien ts Website Designer ID - ADMINPROTHROMBIN TIME/[id number] 05:09:05 Test Item Value Reference Range Interpretation Comments PROTIME (BEAKER) 13.7 seconds 11.9-14.2 (test code = 759) INR (BEAKER) (test 1.07 See_Comment [Automat ed message] code = 370) The system myBarrister generated this result transmitted ref erence range: <=5.90. The reference range was not used to int erpret this result as normal/abnormal . RECOMMENDED COUMADIN/WARFARIN INR THERAPY RANGESSTANDARD DOSE: 2.0 - 3.0 Includes: PROPHYLAXIS for venous thrombosis, systemic embolization; TREATMENT for venous thrombosis and/or pulmonary embolus.HIGH RISK: Target INR is 2.5-3.5 for patients with mechanical heart valves.CBC W/PLT COUNT & AUTO [id number] 04:41:55 Test Item Value Reference Range Interpretation [...] PERCENT (BEAKER) (test code = 2801) Tissue [id number] 14:57:26 Test Item Value Reference Range Interpretation Comments Case Report (test code Surgical Pathology = 104) Report Case: [id number] Authorizing Provider: Munir Mckeon MD Collected: 09/02/2022 02:07 PM Ordering Location: [address] Received: 09/02/2022 04:08 PM Service Pathologist: Haylie Person MD Specimen: Liver DIAGNOSIS (test code = c3eegMLhRYDph6ujZXVhdQ 3220) FuZzEwMzNcZnRuYmpcdWMx IHtccnRmMVxlcGljOTYwMl qgchFmCCVlgXSdY6Enoeht AFjzTQ5vGO9roIkxuUCutK KdUCOyGfAkp1sas270lKHm g8lnCASFomiwkZt7dSvwN8 4ge4I7KtyvA40woPJeOCW7 DOHvBACagPOnKACdJYM2QG WgjBVvG0hzQAGgWG5xizfe BJnvEKpfDCAiuRP5SQWlzB CkE9ZhTSErOSdoFAGoohz1 QwOcAm8oyBBkxFoaQZneOU JkXHBsYWluXGZzMjAgTElW NPVeRUATM5BDOGknmUjqZU aegR1bWO0WYHqffVn3CTWw w4QllTQjhOadOG9tnGvql1 UlAEQbdA1bvbXdhMjwHBZy URAvuWFdyeXuZWVyg8kcbX NvaWRhbCBkaWxhdGlvbiBh sbFwT95iE4SicQkidxnii1 RlT6QveGq0UZUuWrR0AP6f yOGjc0E8VnelnhTjSwT0kk BbeOkrjeqvNRM8v1afsROe XHNzdGUxODAwMFxhbnNpXG NmZzoocqiqZSEcGBS6esQd SEHfJFmmHUQkXHqgTb2drK JbeJhpBxTuJHHee8aqvxRD jzzotEj1g0pzNIWtUqQ7mY JwNQbeJ4ppunPiqQGoOOPm YWk2yE53GAVzoX2vzLEdWO bjmaVdGuY0QWxvHIAvKdM7 SRGciRMrHFVgY6blIGBpHJ giZOLxRTbweWQsVKI9uNrp f8L7eWEvxUPrgDkmNuKwZi WdYiKXw2WoZKv8aTvsQ2Du RWScCsB5tWPpICJnHUziOF LpDLVfcpB7kW99FAynqbU9 bTIvg6Ftl40sx395gS8nnC NvCWH9AGExJDUpaSIeNANd JRD9MGFzfBRhC9ryZEBhJH 2ptwnfKCnkVVylJFMleES9 SUQaqSBxT8DoAXZyIPzmMY Mevux9XcEdBc8pdLFsoKoy VQmda1msl1zpdLCqLru5EJ RzXxLfGujkYRxeq4Raa1zj XSImjl1sXCX4uRFmwVlrz8 F8wZAnFAFihFVzEBXvNA4z eLNyVBJbxW8qyylwZGMzTx QpvstiVSNktVztwsWaHv3w qBniJPD7FFvgA0kgaC8pFc P4FCelW3yxyJ0mQFr3HTdc KVCfnHP3cvV2SAIdrRNmP9 KkrJ1uDMGxPB6nvrl3z1jy ZGC6JHvpAYItIsA3tyE4NB PakABvPJYanIawOLxad396 PIM2LbWlYIJts3ArQ0KunD ytQ98iaPvrP30gLMEspScx oJ7pmToiqQ1cMiHjHsAjHA qdoMkvNE5jEZMmE9uidFLy UFQuBHGnP0zbNbOcxB7orA omSTbtfgJwBDUgYyp4WFVs zSVtUABtSff2EVUzUEWxC6 0lmzzzKJX7lV4an3crb0Aq ZHwtZJO1DPQhm39qMMucoa Y2YSuxNk77NVxhHLG5LJek YXJ9fQ== COMMENT (test code = a4bkiEUqVRZqgDQ5QmCzAR 3353) Qmj6gcc3AxcNXazRGbYLvu rSVbklYype40qIW2yM21YR 5kRKJuDvM0KYUalhZ7Xdc4 RIXbRIKddHRfD095z5hju6 fmiuEotJF0qVeoSJEeozpc BoC9KAgwTZDhbnffOHy9RM tuYKOzpQC6UKMvnFOtS9Yg UZZlQE4tbhz3TCM2WRhoLL ZvVeT9BNLouJDuANGesOhl LPctl926WAM3WgEpWETies HasImglN7cHvXzFJSWaGhq dNLbrUMcmPD9k1J6PV1wIP FetlTrCGG1nCKkYUWetu3c MGZtgS2kwVUfjZLcxv38ZS KeAVUDiZNyBzwxxLV6GB7e wZNsg2SfLwUoqyFqwnSsWF 53AJIxivEcl0XtqYylDSZx vyzboXNpIGeps5rxnc2yNN CngZ9sQ5RnYNPlqrTvlDN0 oF0cGVemRWOxX77qpUItSN VkLlxwYXJ9 CPT Code(s) (test code t3qmkCMeRKPlbQU8GpXcQU = 5899) Lpp7wdf5BgoOBdgZYzEOvs tIWaohDbvw65uEP4aE67BA 0eIUNsHtC7NMKyneT1Wtf4 TPZjZECnbHWsQ650f0egv9 coplNjjBF5zTlnIKYjgbpv IfB0MZpxWKRfzkzpLSe7DT zvFOIyyDF4LLGexAAiG3Fv CASpJW2jfsv1ZQD0STewSK CnXwA9ZHCsxPXvWFYwlVvv QZaez132GDJ7LySvKAXggn QumRdlhM1oUuNcXCP0HDLx H0xlNEP2 CLINICAL HISTORY (test m2eweEFzUTQyqKX5AeMuZP code = 3356) Dty0zkc9KjwABbeTVnEDsr mZOjfvUuhw22mBW3aI04RJ 6lQQOwBfK7DDFuqvH9Jqy3 ZRFnCOKfeUSvE360v0svq9 srudAgkWS8eLeaPIRlebew VfA8IEzuCNWhcgybLBc8NT teJKCzsRJ5IGZyzOAxE6Ab FMXkYG6kbxl1POK2ICjkVZ DlOzH6MCRbzGYhTROtgKgr TEypm720AOA8VgWcNVVwkf FumAjfmX1iWbPtQNEGnALd vdWsFQSmp0Dri7duGNKmgL PxXZI3ACZbcrKtMEE3jQIr H4SaX3RuTVNhyv3= GROSS DESCRIPTION (test g0yemPNoLRTrcDLBMYFrM3 code = [id number]) xwafZwOIMguUXkK7Wunqlc GLmoRV8xJB2pqWddhEVieC YaVG9BVEBmZtPeGMRzgSKu cbNdOxWoNFDemDIkqHJ8GV GmNE8yqzupBHscNEccRBKq yvG6NFMifQGeP7HuZVNqSG 9omhvaTBL3DOiraK1uwlLP SdpyVq0hhJJpcEiwNaErVb NoYXJzZXQwXGZuaWwgQXJp PIz7kI8CCpfyP42or4O1Hd i6JFFxNJPsU9NsFV5cIIRg xBWbL73CLjegCTU7GODVPr bsTCBnRD1Wu4isOXJduXWf VYR3HIwjiBFxOLZzVKGcQL e2MZXuPCgttQLfNC8qoGvj TsgllPshf4PwaMTiATszCP DuLRHkJUlkHKGdEF2NRaEx LMQ2Cwx1FAVvDHu6LLq3WF 9TSpLpRHTmXJOxJIZ2YFCu BIj5ZSzvGF4PMXW5PFS2Bq K4EkG1BGM9PiHaYASlAySv XGYgQXJpYWwgXFxmbCBcXG 5jfVxwbGFpbiBBLiBMaXZl qx6yhUJkRM6YKNAglPXDIW F2YQ9hIMVLWrassRYcPYLm vMawCSjvlR8rKG2KWLq9ks VkLCAwWAjzftGfZVQxG8Gi vbCkAKqdQELnhg5qmFhuJF alQdVfDIKcy6w0wZK3sPIq nIJ8dQHdvGbtSxCjUO8gnA LhST7hIYjxZCtikbDme5Dr VY62nQLcwoToubKnZBU1Dh IwIFwnOTNsaXZlciIgYXJl CTTurVUgUSN1kJBaBGUsqK ytGCNvTjGqtVgfv4TdYWNj ojJxCD6oPRL7fsuzGyO0zD U3saNoVvXtQ12mxN8gsAHr P9QdPSE3bPmnaVDinzErr9 VjsIe7sOPsPAyjPFFlrF8z rX1tFVYnTLZqmjAFRvdaDI HwKAanE5BnXWMzGzXlDFiz YXIgQXJndWVsbGVzLCBQQS pnCUYuVGGSG3FgELednLee kA1nLCHsH81ve6OHa4RaCS VxTTbqs3gnwHvri5WynTXj NMiwSGKcjBGcOOsisP8bEj Wtx6iooZw8KGlotwF8GNUe vl6GJfchjS3hSvWtn5qkfB v0QKGTAiqvrfB7c0uqrCjf p8YyfRJoCS8BPi3= SPECIAL STUDIES (test o4sakFTaWVIyu7wkITOhsQ code = 3376) FuZzEwMzNcZnRuYmpcdWMx QRwyxpHtUVaaa6EcX5MqDu AwMFxhbnNpXGRlZmxhbmcx ZKVjARR8dsIfWULvDKvePF FcCZmtUd4uuEVikSkmXhTf ZVGqx0wedhHXvejpmUj3b0 lzFWIkRiE8cXIfZUmxR3yp eyDuhGWaH4YzaBTptUx3x0 eeHrKaMiZ5aHRaYZvnD4fz nlCtdQFcDFFjELo9hT36AD YxeQ8tqXOhXSsklxZlWbR3 XJbwQDSwBjC5NHRfgFOxII NmI0saRVDxMThiMGQmNKty mPKhAJQ4uLmnb2O3vKTfxJ BcrBjuWtOlByOzInWWg8Wt ZNg7dRrxX1MiBTYcGkZ0fF QgUGFyYWdyYXBoIEZvbnQ7 bAiwzhCor78zhIDgQNSfJY HqMvOjrIlsAHVgEUCWl2Gb pNpmFRH6dPr4tBixMhhgWY Z4Oep4TK1jty64crw2aSmp KJGiiqmkMyT9GUlaQORone aqKFo4GRrxAPRmaLY8FKTc gDUjG4HbGWHfKA9wisu8YQ R3FZzbJMGhFdS2IRJqbSVu JMSwhXtgTSexj842THS6Wi RoTN4yC7Uef8A5sY5syIYi GSGabUXrOuTbCZIpsu4jgO JdRYcdc4RiUFG8baM9sSSk uPTfULJaGP02Bvcnm7UqXs wwv8QjY69psYG5CUjnu2uv YM8gZmQ5wvSwYHfpy7tlqG 3dBnV2JPhdAP6xMF4mTPVo eK0rsklfXKZgWxLohpfxPN ZjgJceoeCaAh5uxEjvCFM9 VRbjP7wskZ9lZuR2SBnnB9 pzhC4cELg5JWdeiUN1MBWq jZ0rZG5zdhhvw8rcXCvjIF amPHEevfU6imI5KGFsxAIg B0AfvN4kRZEpLS2xbqbip2 oqSPR0YPevKYHrMVE4RcSp UDGog0Wvltc0HiDmx8ByoW LwGElbT44rw633BOLwwxNh Y1gntTKvnqrniWRcuppmMG dhwtU2IKSaFBLmUJimIXZx XGZzMjJcbGFuZzEwMzNcaG ljaFxmMVxkYmNoXGYxXGxv Y4ocAzHuE6UjHZPdDxFdCT wnANgsxKVrdUTesGO5bO4a IR5zZUUaaLPmA4ZxWFJkun EjuVYlDRD4cGKbhOLiFL9p QMgljDIqm4kio8TbK7lesA kguRS2GO4wBLFxARGiSXjo q3EkcM4nFuzozTQlujbcGZ xmczIyXGxhbmcxMDMzXGhp L5uwIlSaQZEroYncWIsqi9 NoXGYxXGNmMlxmczIyXGx0 cmNoXHBhclxwYXJccGxhaW 2fIzQbVkXwUovoYU5tDHOy I3riuEZaAYTqGJOhM1iiPp QhzI1xiOsrJAtqOdXhQbBl BiHJo526mm6zMZDhtDDkqh NOxDLykP9bYAwqGMcmPZpw dCJnEFuwr0jdYBIfm3j5mO CsQOSpmlKrx1vmOOxeusMq IXHjwFGauACdZFJvl33sBF euzIybpLsaQPIqi1LcmZpu x2AvTgJiSOeso9SgI61fwX JvbCBzbGlkZXMgcnVuIGFs m47qj7pyWVXvKcG6rNAiyA X6hCFxsWAce5SoaLzpNWHo u1xwTXXadb5tihcopGQjl4 NlcY3avrwfXHewtSEfvnMp IFVoc0l4yYEiIWBiJCZcIR pddTp6GPVai924hj2gymZ7 rBWjNLP2KWwvXDGfQTZzgu UgZXZhbHVhdGVkXHBsYWlu XGYxXGZzMjJcbGFuZzEwMz NcaGljaFxmMVxkYmNoXGYx BJurS9vxBhZuI3QbPMLmXu InpODpD5yzbTVnVWUjURpb XGYxXGZzMjJcbGFuZzEwMz NcaGljaFxmMVxkYmNoXGYx KHidY1nqEqQtO6EbACMrMl IgIFxwbGFpblxmMVxmczIy TDrlngojCUAqRXihV1ueTd AzNQSfzPzsOJlye2VgORAp XKGjRobkwdBiFKv6xnBpWZ BhclxwbGFpblxmMVxmczIy FPosifvmAFTaZGatN2xkNi IbZJHzuPebHBejq2JeFQAq XGNmMlxmczIyIEltbXVub2 jhl3OrH0viqWkhdRY0GQOa L0xafPIaeDD8YWQ7uA6zZR qxkvHbBCCmn4LcGHTmPPPl XsQ5nV3nQNQ7TpIXiHfoJG BsYWluXGYxXGZzMjJcbGFu ZzEwMzNcaGljaFxmMVxkYm PdHYOsDWelP3arGdKnM4Ii WWNoAeVkhNjyVXyoNYg2Av xwbGFpblxmMVxmczIyXGxh gtyjIWWlIXffF3zoNzHbCG NwgBwvFRmzq4UjLBOkDXGj MlxmczIyIHMgTWVkaWNhbC TWCV82ETToJSKcwFatnZ4i wUHWVUKqqxD3l5U3RHpoVP FaJLp0YCmhuvTyBZZrmF4b QAXcCY2gHNo3eiJpJCJjp6 LnHE4nEMFydCYrZBV1VNEa f4YlF5Vfg8AlBGGeYOHrbm 5ynqXjMkXCuSTvOGWjzk30 RQOxMA3eX9bxMMDaVSLzqt IwwMFnk1LpHYFntMJ6bQCn KR1WYmJNf72mRYBxDGDQsk ZqIAFygWqusLG1faI3aV4h LiBUaGUgRkRBIGhhcyBkZX Jyzu5fcqAbJYKzCUJla4Up kLBxrHTmgpHsB4Tnv3VyRO Iyvp04UVgspZGnmg11AZ7b T1Unb1SjgI7iGCouEBFtf4 MayCZyvSEhDPBur0DcZ3db wxzwZMnleJNdhD4fMXYkVC w0CMYzb9JsWYDtd5XlLuEk xhEeMZPoJWLtFQGraT68UR R1iVrakIfkxvScTA2fNWFw iqHdKFXlJDJajW2uJSvnlh LaQHJxseL4k6A0HGztIUGl ccSnUakmVDM3ycAfawY7sV OkN4ccyufuNIrjAIYxc7Vv eD1otZILrDTkg5KftZUfeE EAhYFjNN8fjyXoUI9mRXY2 ODggKENMSUEtODgpIGFzIH H3GTfkYmaeUNE6goLgMIZh l3CdQQyzN6qkV72aoQbhcX o7sEYhgVgupGDgwREzIFOp wpK0m6Q3AGUuw8CrowbtRM BsYWluXGYyXGZzMjJcbGFu ZzEwMzNcaGljaFxmMlxkYm RkLTCoWZdoD9euPhTjQfWt FvtmIVJ9eN== [facility] [id number] 14:57:26 Test Item Value Reference Range Interpretation Comments Case Report (test code Surgical Pathology = 104) Report Case: [id number] Authorizing Provider: Munir Mckeon MD Collected: 09/02/2022 02:07 PM Ordering Location: [address] Received: 09/02/2022 04:08 PM Service Pathologist: Haylie Person MD Specimen: Liver DIAGNOSIS (test code = i0zioTVrRXDhv3fdPJNhdD 3220) FuZzEwMzNcZnRuYmpcdWMx IHtccnRmMVxlcGljOTYwMl xeaiAbDARqgAFcS1Tyxzuy SOgmNN9jFD6lzFqdmERkbH DcJFDkSeUvb9bal193pUTa w7ulLQUXvxcduQt1lFujO7 8hj6X9OyhwG89ieJDuLUS1 GCVfEVQqmRGjOZKrXGM9BS FtsNLzW1ebUOMvNC4qwclp QWntPPvcOIDxvKZ0DHSqhN NnJ9UjNAGtKRbdDPDjmlf0 IlItGl8gfBMtxQfcBSdyLF JkXHBsYWluXGZzMjAgTElW KEOgJVKCC8SMMVcmjDosDD fpoR0rLM9PTJgjsGe0LPYz u0EcwIHksIzzWG0tjVnos2 VvCSWwrQ3apsUlwGofHGZi TQUqcDPttmJoBEKmp5nkgZ NvaWRhbCBkaWxhdGlvbiBh mqScM69wG6NupCmggrmwb4 ErK2HimAa6FICzFcI1JH2e gHKks2T8SgvergBdMhG2fv NgcHvqgzudIAJ8u0wnrOBk XHNzdGUxODAwMFxhbnNpXG WcZzpwjodpZGOxYGQ5ioRh SXLxVVwlOTKwKSonDv0ccY PbuQsyHbQuUUSjx3dpwkLU aovlzOz7l1kmUZIxVtD8oX VvQUtuX3wmpqOcjPZbEGWn QWp3xO96QQZeuC0ggHCsMU cbztHeCeI2RLyzSLLjNsW3 MPHpwYCeXEOuD1hyZHBxPZ vzHMOtBXrnfBGfXVD5cEyo g5W6gRIcwMIpySmlIcNmBk VbOoUHg4PzRLs0rPxwT7Kp PGSuFlP0bICiRFIyZNtqXK SnXSEnioI3rI82DOfxifR1 qOVfh0Jxu52jf565jX8viB CyCNP7CWKvLFGpqAKdKZDf AHY2KBCzvWOwQ7tqPXLlNW 5uuaqoXYfqWYnuGHWroCK4 OEMddHZpR6LqQZSsETkfPW Gjtya1AbRcGn4aeLEewJxi COtnj6tim0hzqFKvKdn1VU ZeRjNfLulgNZtic2Gkk8of MMDkac0gKTP7pHMvsSvbz4 Q4yQNvJMYrhLIoGLFoPC4v vAGhRNCbcE9ylxwmBTUjUo GeyfzqOYZdcRwhahLrWv5q gHuoKOJ0OKzzN5iqdJ9qAg W9DZzvV3ycqA3iLQy1FBfo AHPdrYC6iqN9EFUztALqJ5 QlwD2rUFQlRA1xakz2x3qh UOZ1CGpfASCtGlS6ahE9SW QjqWFbZZRzmPtsTJdat541 BSB7BaXlVDBxx3OwG7LrpN lbT00obIryR93mWUAabRgr bR5baLxgxJ9cSbFdClOmTS cttMfpPW1sLTTxL2orqPQa VTMfGUToO1nwNqCgsE9mnB gwGBbnodMmLCSuAgm3LAMt vDWyAAAgOut4UJHvRZMvK3 0pnckcDTI5uA7sk5onc9Mz WHyzXKZ5TYVph91tOGaqmp S5QRmuAw26BDgtOHW2UWdn YXJ9fQ== COMMENT (test code = t2rdgWTqPHLeiVP7GeCeWF 3358) Bsf7cra3YlmBRqpNBfBZgi zHVcchMiij93pOR6lH84DV 9fVUMjDbY9XRMgmlF4Sqd6 RELsTHFtqBKxB093x7fvj5 jgmxZawDO3dJqoLHJlpkuo XkM9AWugJVYuqyqeNRr7EK ccOECyfOV9RIRjpOIfC9Mi PBCsCH4tmxz9DCQ5KJfiJM VkZjY4PEQskETxDYApaPid MDznw128CWV5UtDpOOFdbn MdkFlyyI7jQmDhHZOFcAcf iANpeJGmxNX4q5B1FU5hZA XhwqAsBDD7mKSnGOIkjm9v TOIleM5suZDhpSJghc27CD RkZBDCqBQqVeeusKJ9VQ0f yRDmf0PaWqBhqpAjgtViKA 10NPIruaTgh3IxuSghRQFi yrkbwLTwXPxft7nxoo8qPQ WqjM8jC8ZsQZSxbrZufKW9 jG3jBYwxOXZuF33zrHTpGT VkLlxwYXJ9 CPT Code(s) (test code e2wjmVFjCJBhgFJ0AqYwZP = 3353) Mfk6ghu8PkeFUalKLlVSdh uUWkuwGygb06xFI3wT43HR 0bWUEzItL0CCAcufS9Ntw2 RWPiEZZkpVUaG559g9lyx0 uukzHknUZ6pEocHTLxvret UpM7OLxlTKYyfvxrLHe7GI wiWCTzvTO7PEZlgAZtA5Et XLSaCA1ibjs9TLE0FCfyRP MlCyF5VDRuaZOsKGVpqRni UFzrd806HFW7OvEjZTHtvh WwhDjxuJ9cMnLgJKB4VOMa M7jkMII2 CLINICAL HISTORY (test c3ojoUWfEAPgbED7EcPyVO code = 3356) Rzl9jnp0DgeLNiuVSfSSya yIAjgnBvkp84xJB4tZ67MR 4dZRJkReS2VBRnivG9Xce6 PMEaXEPskDJdS866m3tqt6 edsgGepLV7vQldKDLsefnv EmL7WNppCAFhiqcbBZm2WK egBCWhqVG0HUGtgVAzY3Xp UKUuGC0cfbd0XZB8VPpjDT PeHwV5SWFrjGHsKTDjvPfq TVduj236JXX0WfQcALThsf AlmWwvlA6mSkNhWLGTlTFs scVmZKQjt2Kmu5foJDKahA CyXQP9UUVnjiKtWQO3wNRh M8YgV3UlSIAetf0= GROSS DESCRIPTION (test h2qacOYkYTIuaQYZQSGsQ9 code = [id number]) yeedIqZUVgxQTkC1Rdblbh FIqqSS5qNP0asHmolMAswN LiAA8YDFXtQhVtQHHspQYc mvRzPmSsENRllWZrhET0KO BdRG4ceuaaUXvvBDjwQVWz lkX2LUIxaHQrN1KxNOKhBE 5nxbstVKP7RKluhO5gbjNB ZzchWk8jjARupIbqPeSgIj NoYXJzZXQwXGZuaWwgQXJp WXq4bJ2WPiutV78nc9Z0Dz m5BZFyQWPuQ8SnFU6lYDNh lJWmY45CHubqKRF9DHRYIj upYDCrVX3Jm0dlJVDgePUq OTU2MDeckNXmANEjXOHvJG g4XWEpGHlwcEVvVP4waXev PyatoAuds8AuxSIcSErgHR IoNCUwFBydISGrZV2PBiIi NEI3Xpx7EGAoXDg3ELt4US 8IQgVkPVYgTYYtVIW0IWOw KLl4KMdfBU6VIZJ1NSA2Ur V0MkA8IEW4NpTiLTSxMeWk XGYgQXJpYWwgXFxmbCBcXG 5jfVxwbGFpbiBBLiBMaXZl hs4vxNZwBQ8CUZDfmEEOKG S7VO2fMONONizubZYyTBYp nYauESvsoK8lZO6NTAh1ca XrJCJiSFfmzoXmECItG5Hq dfXiDYwsCCPjmz6mhGocYW cmZkLfZRIms8i2eVF1sMAk oTO3kUTnhPjbVfBcMY7efE FbAI8kOEinZKrhniCtc9Fq DD74sXUgvfWpavWoLHE2Hv IwIFwnOTNsaXZlciIgYXJl YCPhtONkXWY9mUDcDPQlpQ dnALMaKbBufLtxe2AtBAVi zsRmTP7cKOT6iwpcJgI9tW B6ygDlZzPqO86bvB5reMSv T2NvCMU6zZwjgQCygaFre6 KgzVk2vNZjFExmUQUhcM9b kB1wTGSnUQYsbfDXYojaBN VfKNggG3FqOSKmToNoTLjq YXIgQXJndWVsbGVzLCBQQS zzUZWkOAJSW8RkHQmuyJss iP3nTVChZ75oz3TKz9YpRN UbHCjzh2zdxAzvk6QaiNGo AApbXTSoaMXeASlzqV3qJx Fhj5bdpCb8JGqmrmJ6RAGn ih9CEmtjnH3lCfQya9ppoY m1AZXPImfnxaQ3t1qjkIwj w9VnvZCxIK8QLi2= SPECIAL STUDIES (test u7dqfZHxWKKgb5rmZXEfiY code = 3376) FuZzEwMzNcZnRuYmpcdWMx FMzwgyYoPWxru6IbS1QjNa AwMFxhbnNpXGRlZmxhbmcx AIDaLWN2iaYzSMUwNVilNV HtBXnnMn7fcZMczTmrZpDc HKXet6hsixIMdusrhZd6t7 ucUOOpHjH3cNVpQLuhB8gr dlBghUPuO4NdzCSpvKu5f6 ooKiXqQqM6hTPzVLzvV0zw fpDyxMBaWDNtOIl5sL93ZH CytR9ftCXnCCbxhxZoHrM9 QQlvIPJnRzE4HTGakJJsNV WmH0fySFYqYQcfCQGsARgz qDKpPDY0vCnic4K5eBZtcI QccDtzFkByEcKcNeXLr6Mk GEe3fNweY3ThUDPoFwL8iV QgUGFyYWdyYXBoIEZvbnQ7 cIyrrmUka48lqETlAAScND HqScRwzTcjLOKvKUWTs1Dh rBflYOH8sPx7yQnyOhnoQZ T6Phi5ON0taj25byv2eIbd JHThwmvrMsA5PWzlFPUopm jpGNk2MJvaTUJvgOC5ICIg hSItN5WnPWDhAA1rzvi7GW F1JNirCZAvZtI5WOGomCEa WPVxkVxhRJouf019RAR3Tw XiOT4oE9Erx4M2rG8fkEMx HIBemTZcGaCjURBahw4tlV SwRBskl0NjIMK8quM4mCAe fIAsQXJnQR19Nbgwn8SaXj cbg6AtH65bvDR9IHekb0br FH4cUlV6xnZfJIfkb4xybQ 4rAgI6ACikEM0eRI2lPIGw yT0clbyzWMGxJoOtaihaHS QrfOlrlyVmVx8ppOxcYGY9 AKwaT6bcaZ4mIxH2PAjqK4 kglK8hQVx8GAgqrSH9YQFz kC3vST6avsmqg3njTYgkFS qlNIFftaF1dgV9YRAfbUXl I9RyzO9dSPXxYP1alrjkk7 rrADS2TWzgPYBkHTY4CdXy JEAkh3Evcpp1XjIor9OanG MfAJjtT07hu507VJTpvrQw D9qndLSdqanmlUMnhkmiAO hswxG5EEIiAATgWKexAAEd XGZzMjJcbGFuZzEwMzNcaG ljaFxmMVxkYmNoXGYxXGxv T6qbOsPoC1KiBMKpNcTkJH cqQLlarLRpjEPcxJZ5iX4p FI0aUFLxtOAnS0PqRTJfbo ZfkBYfGXC1uPEvvJXnDC0e PDiugMVyi0des3DlG4ujrV vkyDI4BS0mGIAtLEHeYXho e5NnwM7pWnfjvNPvlzhaHB xmczIyXGxhbmcxMDMzXGhp L9qnLmYjFSKtnWzbIMnar9 NoXGYxXGNmMlxmczIyXGx0 cmNoXHBhclxwYXJccGxhaW 7tOeRtUtHuAwvtGO9yJZJg U3tjvMYyKUTbWYIjH7ggPd QdbR2wlLzzZZexYeSsFaCp ZlCEi214cp4nAOPedSKpkv EZiKEyxM3wXYbvQPvgHCfr uXHwJKvfq1whQLWuf1f5jY VgWPBiexVdk9xlQSjgrwLo HOTxuEWviKZqNCSgf76zHM yceRuraUgiEZLex7HwzQla g4JgBsVoIOelx0HgO83hgM JvbCBzbGlkZXMgcnVuIGFs q23dj1qmGEKiLkN5aWOugB U3rUWbaRJus4VkqYkcJYHp q8yfIOJzqd1vogkmjSXhj3 NrwD0jqgyqQQxcvJGaaxFc ERLcs1f3xHDvRIGeQLCzLB ttsGz1CYDvb994bc1rxdD8 lLXqXYO6XUdvKZPfLYKuxm UgZXZhbHVhdGVkXHBsYWlu XGYxXGZzMjJcbGFuZzEwMz NcaGljaFxmMVxkYmNoXGYx KAnwZ6jwXmTmN6AcPBPeUb QfpIAoR4xbaKWbSDPgHLbx XGYxXGZzMjJcbGFuZzEwMz NcaGljaFxmMVxkYmNoXGYx CAyzE6vnJoNhC6HzTLPgVh IgIFxwbGFpblxmMVxmczIy ENqczdcjLLSaPOniH0iiYd ZlQPHepEtaXRiqh9PgVYWt FMSpZwqnzoMcCGd7cjScJM BhclxwbGFpblxmMVxmczIy FKcmhourSERzSRekB7zqBx MzHHGjsUiiQOgvo3TbAHZn XGNmMlxmczIyIEltbXVub2 kwq6FfV6lmwWoflRE7AATs Z8tlzJJmxDG6RSZ3kT8aBF ayzjVnDNQxm4DfBSGsDSOc WiH6fJ1hADD9XsIHiCkqQQ BsYWluXGYxXGZzMjJcbGFu ZzEwMzNcaGljaFxmMVxkYm DoSNByWSowO8vuDnHcL8Nh WCRxIvRmlIcdNGqdFXl5Hc xwbGFpblxmMVxmczIyXGxh gxkeFCIeYQvjL5mwNqMqJC FaoNsdABkoh4JlCPLvISNv MlxmczIyIHMgTWVkaWNhbC SRLT20IYDqFRNhsWhvgR3t zPHWWMKmudU7c2X5XDhdXF LkSJl2GMuazmMyFUGegW9a WXOpBX1cLRx4maNjAAXfj1 GoNY2hUBNdsMNjXTB6JZHs z6DiO5Lbl9SvBSEcFMXlcw 0hjiZePsAMuAGnUAXmer93 XRBkEA6iQ9eyVSSpZKCwtq KfiQJiv5UfAZItcUE6aQDa VN4OIuEFo47bZLXuEMDDro IcDQCpyVgijAR5kiU9xP6f LiBUaGUgRkRBIGhhcyBkZX Ommy7mwkIvUFApMRZzu7Bd lODlqIUqmuAaX7Bcc8NzQC Byvq75XNtijLKrvq33GZ3m J2Scn7DqiE5yXQhfWDWuk9 KodSWlgZQbVHVnk7NyM2xn ezgpMGucfAFxkA3pLBTcVS d6RWZnh6HmLWHvc9KsCyLd ozOrICUyNPKzULGbuY33RK N3oPvckHkwyrViGS1lVUQf txKtIXGcWYHeyD2bEVaazr MiPVRxkgR8x4O4FFltIEYu vzWjKqsrVJD2vgRvluL9vC WoQ3fgdjaeBJssNHOln5Rb hX1qlLLAsYIas0UadWXbtV FUpDRqFZ6hhaKcUZ0zVWW9 ODggKENMSUEtODgpIGFzIH J2EXvaUibvMTZ5roUjWUMv z8LsFJsfO5ptS97gpUyzpT j5iPPzvDzogSNqhALjTFFy plY5c2I9HERuk7NaxgihLR BsYWluXGYyXGZzMjJcbGFu ZzEwMzNcaGljaFxmMlxkYm JmGNTdHBdjM0haVmMpMeBs YmdlBOU6fL== [facility] [id number] 14:57:26Surgical Pathology Report Case: [id number] Authorizing Provider: Munir Mckeon MD Collected: 09/02/2022 02:07 PM Ordering Location: [address] Received: 09/02/2022 04:08 PM Service Pathologist: Haylie Person MD Specimen: Liver LIVER, BIOPSY:-Negative for malignancy, see comment-Perivenular sinusoidal dilation and congestion, suggestive of venous outflow obstruction SigningPathologist Direct Phone Line: [phone] signed by Haylie Person MD on09/05/2022 at 2:57 PMClinical history of pancreatic adenocarcinoma is noted. The biopsy may not be advertising sales representative of the targeted lesion. Clinical correlation is recommended.[id number] metastasis, suspect pancreatic cancerA. Liver.Received in formalin [...] evaluated Immunohistochemistry technical testing was performed at [facility], Pathology Laboratory where it was developed and [...] to perform high complexity clinical laboratory testing.TISSUE [id number] 11:07:58Surgical Pathology Report Case: [id number] Authorizing Provider: Effie Pablo MD Collected: 09/01/2022 03:53 PM Ordering Location: [address] Received: 09/02/2022 11:02 AM Service Pathologist: Radha Zambrano MD Specimen: Pancreas, Head, pancreas head mass bx via FNA PANCREAS HEAD MASS, FINE-NEEDLE ASPIRATION BIOPSY- Invasive adenocarcinoma, well differentiated with clear cell morphology Signing Pathologist Direct Phone Line: [phone] signed by Radha Zambrano MD on 09/05/2022 at 11:07 AMEndoscopy report reviewedTumor cellularity approximately 60% of the tissue core involved by tumorClinician notified Dr. Pablo, was informed by secure [facility] email on 09/05/2022 at 11:10 [id number] duct obstructionA. Pancreas, Head.Received in formalin labeled [...] evaluated Immunohistochemistry technical testing was performed at [facility], Pathology Laboratory where it was developed and [...] qualified to perform high complexity clinical laboratory testing.[facility], Department of Pathology, [address] [place] [id number], [facility]yg[facility], [facility], [address] [place] [address], [facility]dustePl[facility], Department of [facility]ology, [address] [place] [id number], DTPOO [id number] 00:00:54 Test Item Value Reference Range Interpretation Comments CULTURE (BEAKER) (test No growth in 5 days code = 1095) BLOOD [id number] 00:00:51 Test Item Value Reference Range Interpretation Comments CULTURE (BEAKER) (test No growth in 5 days code = 1095) CT, CHEST, WITH [id number] 08:50:00Unlisted Reason for Exam - Click Yes and Enter Reason Below->No [facility] 1970 Sex: [...] MDReport Verified Date/Time: 09/03/2022 08:50:28 U/S, BIOPSY, [id number] 17:38:00Reason for exam:->suspect pancreatic cancer, liver metastasis biopsy. [facility] : 1970 Sex: MFINAL REPORT Procedure: Ultrasound-Guided Core Random Hepatic Biopsy: Pre/post-procedurediagnosis: Hepatic lesions Dobie Man: Sean Spain MD Assistants: none Sedation: Moderate [...] MDReport Verified Date/Time: 09/02/2022 17:38:03 Reading Location: [address] Body Reading Room HEPATIC FUNCTION PANEL 2022-09-02 [...] Specimen slightly (test code = 347) hemolyzed Website Designer ID - PIAYA LBASIC METABOLIC [id number] 10:20:45 Test Item Value Reference Range Interpretation [...] not appl icable for dialysis patien ts Website Designer ID - KARL [id number] 10:04:20 Test Item Value Reference Range Interpretation Comments Cytology (test code = See Separate Report 0785) [facility]:04[facility]20 Test Item Value Reference Range Interpretation Comments Cytology (test code = See Separate Report 262) [facility] [id number] 10:04:20 Test Item Value Reference Range Interpretation Comments CYTOLOGY RESULT POINTER See Separate Report (BEAKER) (test code = 2629) [id number] 09:55:56 Test Item Value Reference Range Interpretation [...] 0-0 (BEAKER) (test code = 413) [place], [id number] 16:42:00Reason for exam:->ABNORMAL IMAGING [facility] : 1970 Sex: MAn imaging unit was utilized for this procedure. No radiologist interpretation was requested. Refer to the EMR for findings. Refer to PACS for any patient radiation dose information.CT, [id number] 13:38:00Unlisted Reason for Exam - Click Yes and Enter Reason Below->NoProtocol please specify:->Multiphase PancreasWill this procedure require oral contrast?->No [facility] 1970 Sex: MFINAL REPORT [...] acute interstitial edematous pancreatitis Signed: Madhu Deleon [facility] Verified Date/Time: 09/01/2022 13:38:32 HEPATIC FUNCTION [id number] 05:55:26 Test Item Value Reference Range Interpretation [...] code = 144 U/L 6-55 H 347) Website Designer ID - BSBASIC METABOLIC [id number] 05:55:25 Test Item Value Reference Range Interpretation [...] is not as accur ate as Creatinine Bsesy minnie in predicting glom erular filtration rate . Estimated GFR is not appl icable for dialysis patien ts Website Designer ID - BSPROTHROMBIN [id number] 05:18:22 Test Item Value Reference Range Interpretation Comments PROTIME (BEAKER) 15.0 seconds 11.9-14.2 H (test code = 759) INR (BEAKER) (test 1.21 See_Comment [Automat ed message] code = 370) The system myBarrister generated this result transmitted ref erence range: <=5.90. The reference range was not used to int erpret this result as normal/abnormal . RECOMMENDED COUMADIN/WARFARIN INR THERAPY RANGESSTANDARD DOSE: 2.0 - 3.0 Includes: PROPHYLAXIS for venous thrombosis, systemic embolization; TREATMENT for venous thrombosis and/or pulmonary embolus.HIGH RISK: Target INR is 2.5-3.5 for patients with mechanical heart valves.CBC W/PLT COUNT & AUTO [id number] 05:04:55 Test Item Value Reference Range Interpretation [...] SARS-Co V-2 (test code = target nucleic 40383-0) acids are not detected in thi s [...] revoked sooner. Fact Sheet for Healthcare Providers: https://www.[employer].com/Documents/Xp ert%20Xpress%20SAR S%20CoV-2/Fact%20S heets/302-8722%20S ARS-COV-2%20HEALTH CARE%20PROVIDERS%2 0FACT%20SHEET.pdf Fact Sheet for Healthcare Patients: https://www.[employer].com/Documents/Xp ert%20Xpress%20SAR S%20CoV-2/Fact%20S heets/302-3801%20S ARS-COV-2%20PATIEN T%20FACT%20SHEET.p df Lab Interpretation Normal (test code = 50084-3) [facility]2022-08-31 15:20:44 Test Item Value Reference Interpretation Comments Range SARS-COV2/RT-PCR Negative Negative The SARS-Co V-2 (test code = target nucleic 48691-5) acids are not detected in thi s [...] revoked sooner. Fact Sheet for Healthcare Providers: https://www.[employer].com/Documents/Xp ert%20Xpress%20SAR S%20CoV-2/Fact%20S heets/302-3802%20S ARS-COV-2%20HEALTH CARE%20PROVIDERS%2 0FACT%20SHEET.pdf Fact Sheet for Healthcare Patients: https://www.[employer].com/Documents/Xp ert%20Xpress%20SAR S%20CoV-2/Fact%20S heets/302-3801%20S ARS-COV-2%20PATIEN T%20FACT%20SHEET.p df Lab Interpretation Normal (test code = 02038-9) [facility]2022-08-31 15:20:44 Test Item Value Reference Range Interpretation Comments SARS-COV2/RT-PCR Negative Negative The SARS-Co V-2 target (test code = nucleic acids a re not 6085017) detected in thi s specimen. Negative result [...] revoked sooner. Fact Sheet for Healthcare Providers: https://www.[employer] m/Documents/Xpert%20Xpress%20SARS%20CoV-2/Fact%20Sheets/431-8302%60BZHM-MIS-7%20 HEALTHCARE%20PROVIDERS%20FACT%20SHEET.pdf Fact Sheet for Healthcare Patients: https://www.[employer]/Documents/Xpert%20Xp ress%20SARS%20CoV-2/Fact%20Sheets/667-3801%59NXGG-SLN-9%20PATIENT%20FACT%20SHEET .pdfU/S, ABDOMINAL, [id number] 14:32:00Reason for exam:->[facility] 1970 Sex: MFINAL [...] signed by: MAHIN CHOW M.D.on 08/31/2022 02:32 PMCOMPREHENSIVE METABOLIC PANEL 2022-08-31 14:29:50 Test Item Value [...] 30-44 G4 Severl y decreased 15-29 G5 Kidne y failure <15Reported eGF R is based on the CKD-EPI 2020 equation that d oes not use a race coefficientEsti mated GFR is not as accur ate as Creatinine Bessy hartman in predicting glom erular filtration rate . Estimated GFR is not appl icable for dialysis patien ts Website Designer ID - MITCHCBC W/PLT COUNT & AUTO [id number] 14:16:27 Test Item Value Reference Range Interpretation [...] (BEAKER) (test code = 2801) MR, ABDOMEN, [id number] 09:55:00Unlisted Reason for Exam - Click Yes and Enter Reason Below->YesUnlisted Reason for Exam->pancreatic cancer [facility] 1970 Sex: [...] 0.9 cm in segment VII on series 229131 image 26. BILIARY: The gallbladder is distended [...] infiltration of the liver Signed: Madhu Deleon [facility] Verified Date/Time: 08/31/2022 09:55:55 Reading Location: [facility] Diagnostic Imaging Reading Room - [place] [address] Urinalysis with Microscopic If [id number] 07:12:10 Test Item Value Reference Range Interpretation Comments Color, UA (test code = Yellow 5778-6) Clarity, UA (test code = Clear 5767-9) Specific [place], UA (test 1.033 1.001-1.035 code = 5811-5) pH, UA (test code = 5.5 5.0-8.0 5803-2) Protein, UA (test code = 20 mg/dL Negative A 12509-1) Glucose, UA (test code = Negative Negative 365) Ketones, UA (test code = Negative Negative 2514-8) Bilirubin, UA (test code = Negative Negative 15284-8) Blood, UA (test code = Negative Negative 90881-6) Nitrite, UA (test code = Negative Negative 5802-4) Leukocytes, UA (test code Negative Negative = 5799-2) Urobilinogen, UA (test 0.2 0.2-1.0 code = 81795-4) Specimen Source (test code = 2795) STEVENSON (test code = STEVENSON) Website Designer ID - [auto]Website Designer ID - tech Lab Interpretation (test Abnormal code = 18355-2) [facility] [id number] 07:12:10 Test Item Value Reference Range Interpretation Comments Color, UA (test code = Yellow 5778-6) Clarity, UA (test code = Clear 5767-9) Specific [place], UA (test 1.033 1.001-1.035 code = 5811-5) pH, UA (test code = 5.5 5.0-8.0 5803-2) Protein, UA (test code = 20 mg/dL Negative A 70741-5) Glucose, UA (test code = Negative Negative 365) Ketones, UA (test code = Negative Negative 2514-8) Bilirubin, UA (test code = Negative Negative 01476-6) Blood, UA (test code = Negative Negative 46825-1) Nitrite, UA (test code = Negative Negative 5802-4) Leukocytes, UA (test code Negative Negative = 5799-2) Urobilinogen, UA (test 0.2 0.2-1.0 code = 86787-6) Specimen Source (test code = 2795) STEVENSON (test code = STEVENSON) Website Designer ID - [auto]Website Designer ID - tech Lab Interpretation (test Abnormal code = 78301-4) [facility]CROSCOPIC IF [id number] 07:12:10 Test Item Value Reference Range Interpretation [...] = 463) SOURCE(BEAKER) (test code = 2795) Website Designer ID - [auto]Website Designer ID - techUrinalysis Microscopic [id number] 07:11:42 Test Item Value Reference Range Interpretation Comments RBC, UA (test code = 1 See_Comment [Autom ated 25599-0) message] The system which generated this result [...] (test Occasional None Seen A code = 17168-5) STEVENSON (test code = STEVENSON) Website Designer ID - tech Lab Interpretation Abnormal (test code = 76270-6) [facility] Microscopic [id number] 07:11:42 Test Item Value Reference Range Interpretation Comments RBC, UA (test code = 1 See_Comment [Autom ated 03859-3) message] The system which generated this result [...] (test Occasional None Seen A code = 57233-1) STEVENSON (test code = STEVNESON) Website Designer ID - tech Lab Interpretation Abnormal (test code = 96538-8) [facility] [id number] 07:11:42 Test Item Value Reference Range Interpretation Comments RBC UA (BEAKER) (test code = 519) 1 /HPF WBC UA (BEAKER) (test code = 520) 1 /HPF CRYSTALS, URINE (BEAKER) (test Occasional None Seen A code = 1521) Website Designer ID - techCOMPREHENSIVE METABOLIC [id number] 04:25:49 Test Item Value Reference Range Interpretation [...] (test code = 347) EGFR (BEAKER) 99 Interpretati on of eGFR (test code = 1092) mL/min/1.73 [...] not appl icable for dialysis patien ts Website Designer ID - MARCOCBC (HEMOGRAM ONLY)2022-08-30 03:49:43 Test [...]
[2023-08-01 18:05] LABS: Absolute Lymphocytes (CBC) 0.5 K/uL (0.7-4.9); Hematocrit 22.5 % (39.6-49.0); Lymphocytes % 12.3 % (15.3-44.8); MCV 78.3 fL (80-100); MPV 7.7 fL (7.6-11.3); Platelets 174 thou/uL (152-406); RBC Red Blood Cell Count 2.87 M/uL (4.33-5.43)
[2023-08-01 18:09] LABS: Protime INR 1.75
[2023-08-01 18:15] LABS: SARS-CoV-2 Antigen Rapid Res Negative (Negative)
[2023-08-01 18:20] LABS: Albumin 2.5 g/dL (3.4-5.0); Bilirubin Total 0.5 mg/dL (0.2-1.0); Potassium 3.6 mEq/L (3.5-5.1); Protein, Total 6.9 g/dL (6.4-8.2)
--- NOTE | 2023-08-01 18:20 | RAD REPORT ---
EXAM DESCRIPTION: WISAMChest Single View08/01/2023 5:34 pm CLINICAL HISTORY: weakness COMPARISON: Chest Single View dated 07/12/2023; Chest Pa And Lat (2 Views) dated 02/08/2018 TECHNIQUE: Portable AP view of the chest. FINDINGS: Right chest wall medication port in place. The lungs are clear. No pneumothorax or effusi on. The cardiomediastinal contours are unremarkable. IMPRESSION: No acute cardiopulmonary process.
[2023-08-01] MEDS ORDERED: NA CHLORIDE 0.9% 1,000 ML ONE (18:37)
[2023-08-01 19:02] LABS: Specific Gravity 1.023 (1.005-1.030); Urine Bacteria <20 /HPF (<20); Urine Bilirubin NEGATIVE (Negative); Urine Blood Trace (Negative); Urine Clarity Extremely Turbid (Clear); Urine Color Yellow (Yellow); Urine Crystals Unidentified Few /HPF (None Seen); Urine Glucose NEGATIVE (Negative); Urine Mucus 4+ /HPF (None Seen); Urine Protein 2+ (Negative); Urine Urobilinogen 1+ (Normal); Urine WBC Clump Occasional /HPF (None Seen); Urine pH 5.5 (5.0-7.0)
[2023-08-01] MEDS ORDERED: OSELTAMIVIR 75 MG CAP PO ONE (20:19)
[2023-08-01 20:20] LABS: Hematocrit 21.8 % (39.6-49.0)
--- NOTE | 2023-08-01 21:11 | EDPHYS ---
Physician Documentation [facility] [place], [place] Name: Mark Graham Age: 53 yrs Sex: Male : 1970 Arrival Date: 08/01/2023 Time: 17:12 Bed 6 Private MD: ED Physician Leopoldo Fonseca HPI: 08/01 17:33 This 53 yrs old Male presents to ER via Ambulatory with complaints of General cp Weakness. 17:33 The patient presents to the emergency department with weakness of the entire body, cp generalized weakness. 17:33 Onset: The symptoms/episode began/occurred yesterday. cp 17:33 Associated signs and symptoms: Pertinent negatives: abdominal pain, chest pain, cp constipation, diarrhea, fever, vomiting. 17:33 Patient's baseline: Neuro: alert and fully oriented, Motor: no deficits, Ambulation: cp walks without assistance, Speech: normal. Patient reports he is currently taking daily oral chemo for pancreatic cancer. Historical: - Allergies: 17:26 No Known Allergies; cm10 - PMHx: 17:26 Gastroesophageal reflux disease; Hypertensive disorder; pancreatic cancer; cm10 - PSHx: 17:26 Cholecystectomy; cm10 - Immunization history:: Adult Immunizations unknown. - Social history:: Smoking status: Patient denies any tobacco usage or history of. ROS: 17:35 Neuro: Positive for generalized weakness, cp 17:35 Constitutional: Negative for body aches, fever, poor PO intake, cp 17:35 Eyes: Negative for injury, pain, redness, and discharge, cp 17:35 ENT: Negative for drainage from ear(s), ear pain, sore throat, difficulty swallowing, difficulty handling secretions, 17:35 Cardiovascular: Negative for chest pain, edema, 17:35 Respiratory: Negative for cough, shortness of breath, wheezing, 17:35 Abdomen/GI: Negative for abdominal pain, vomiting, diarrhea, constipation, anorexia, black/tarry stool, rectal bleeding, 17:35 : Negative for urinary symptoms, testicular pain 17:35 All other systems are negative, Exam: 17:40 Constitutional: The patient appears in no acute distress, alert, awake, cp non-diaphoretic, non-toxic, well developed, well nourished, 17:40 Head/Face: Normocephalic, atraumatic. cp 17:40 Eyes: Periorbital structures: appear normal, Pupils: equal, round, and reactive to light and accomodation, Extraocular movements: intact throughout, Conjunctiva: normal, no exudate, no injection, Sclera: no appreciated abnormality, Lids and lashes: appear normal, bilaterally, 17:40 ENT: External ear(s): are unremarkable, Nose: is normal, Mouth: Lips: moist, Oral mucosa: pink and intact, moist, Posterior pharynx: Airway: no evidence of obstruction, patent, erythema, is not appreciated, exudate, is not appreciated, 17:40 Neck: ROM/movement: is normal, is supple, without pain, no range of motions limitations, no meningismus, 17:40 Chest/axilla: Inspection: normal, Palpation: is normal, no crepitus, no tenderness, 17:40 Cardiovascular: Rate: tachycardic, Rhythm: regular, Edema: is not appreciated, JVD: is not appreciated, 17:40 Respiratory: the patient does not display signs of respiratory distress, Respirations: normal, no use of accessory muscles, no retractions, labored breathing, is not present, Breath sounds: are clear throughout, no decreased breath sounds, no stridor, no wheezing, 17:40 Abdomen/GI: Inspection: distension, is not seen, Bowel sounds: active, all quadrants, Palpation: soft, in all quadrants, nontender, in all quadrants, 17:40 Back: pain, is absent, ROM is normal, 17:40 Skin: cellulitis, is not appreciated, no rash present. 17:40 Neuro: Orientation: to person, place \T\ time. Mentation: is normal, Motor: moves all fours, strength is normal, Sensation: is normal, Gait: is steady, at a normal pace, without difficulty, 17:45 ECG was reviewed by the Attending Physician. cp Vital Signs: 17:26 BP 115 / 77; Pulse 103; Resp 18; Temp 98.2; Pulse Ox 100% ; Weight 55 kg; cm10 18:31 BP 103 / 72; Pulse 95; Resp 16; Pulse Ox 98% on R/A; hb 18:56 BP 147 / 70; Pulse 91; Resp 15; Pulse Ox 100% on R/A; as6 19:45 BP 110 / 75; Pulse 93; Resp 18 S; Pulse Ox 99% on R/A; ha1 20:01 BP 113 / 69 LA Supine (auto/reg); Pulse 98 MON; Resp 16 S; Pulse Ox 100% on R/A; jw7 20:01 BP 102 / 77 LA Sitting (auto/reg); Pulse 105 MON; Resp 16 S; Pulse Ox 100% on R/A; jw7 20:01 BP 91 / 63 LA Standing (auto/reg); Pulse 113 MON; Resp 16 S; Pulse Ox 100% on R/A; jw7 21:08 BP 114 / 76; Pulse 92; Resp 15 S; Pulse Ox 98% on R/A; jw7 21:15 BP 116 / 75; Pulse 92; Resp 15 S; Pulse Ox 100% on R/A; jw7 MDM: 17:20 Patient medically screened. cp 18:00 Differential diagnosis: viral Infection, bacterial infection, UTI, sepsis, pneumonia. cp 21:02 Data reviewed: vital signs, nurses notes, lab test result(s), EKG, radiologic studies, cp plain films. Consideration of Admission/Observation Escalation of care including admission/observation considered. ED course: VS noted. Admission offered for continued monitoring, patient declines at this time and requests discharge to home. 21:02 Counseling: I had a detailed discussion with the patient and/or guardian regarding the cp historical points, exam findings, and any diagnostic results supporting the discharge/admit diagnosis, lab results, radiology results, to return to the emergency department if symptoms worsen or persist or if there are any questions or concerns that arise at home. 08/01 17:26 Order name: Blood Culture Adult (2) 08/01 17:26 Order name: CBC with Diff; Complete Time: 18:18 08/01 18:18 Interpretation: Normal except: WBC 4.20; RBC 2.87; HGB 7.4; HCT 22.5; MCV 78.3; MCH cp 25.9; RDW 17.9; ALEX% 78.0; LYM% 12.3; LYMA 0.5. 08/01 17:26 Order name: CMP; Complete Time: 18:21 08/01 18:21 Interpretation: Normal except: NA 132; CA 8.3; ALB 2.5; GLOB 4.4; A/G 0.6. 08/01 17:26 Order name: Lactate w/ 2H reflex if indic.; Complete Time: 18:36 08/01 17:26 Order name: Protime (+inr); Complete Time: 18:18 cp 08/01 18:42 Interpretation: PT 19.3; Reviewed. 08/01 17:26 Order name: Ptt, Activated; Complete Time: 18:18 cp 08/01 18:42 Interpretation: PTT 44.4; Reviewed. 08/01 17:26 Order name: Urinalysis w/ reflexes; Complete Time: 19:33 08/01 19:33 Interpretation: Normal except: [facility] Extremely Turbid; UKET 1+; UBLD Trace; UPROT 2+; cp UUROB 1+; UWBC 10-20; URBC 11-20; MUCUS 4+; UWBC Clump Occasional. 08/01 17:26 Order name: Influenza Screen (a \T\ B); Complete Time: 19:33 08/01 19:33 Interpretation: Normal except: FLUA FLU A ----- POSITIVE for FLU A protein antigen. 08/01 17:26 Order name: SARS-COV-2 Antigen Rapid; Complete Time: 18:18 08/01 19:05 Order name: Urine Culture EDKY 08/01 19:55 Order name: Hematocrit; Complete Time: 20:32 08/01 20:33 Interpretation: Abnormal: HCT 21.8. 08/01 19:55 Order name: Hemoglobin; Complete Time: 20:32 08/01 20:33 Interpretation: Abnormal: HGB 7.1. 08/01 17:26 Order name: Chest Single View XRAY; Complete Time: 18:21 08/01 18:21 Interpretation: Report review. 08/01 17:26 Order name: EKG; Complete Time: 17:26 08/01 17:26 Order name: Accucheck; Complete Time: 17:53 08/01 17:26 Order name: Cardiac monitoring; Complete Time: 17:53 08/01 17:26 Order name: EKG - Nurse/Tech; Complete Time: 17:53 08/01 17:26 Order name: IV Saline Lock - Large Bore; Complete Time: 17:53 08/01 17:26 Order name: Labs collected and sent; Complete Time: 17:53 08/01 17:26 Order name: O2 Per Protocol; Complete Time: 17:53 08/01 17:26 Order name: O2 Sat Monitoring; Complete Time: 17:53 cp 08/01 17:26 Order name: Vital Signs; Complete Time: 17:53 cp 08/01 18:24 Order name: Orthostatics; Complete Time: 20:02 cp EC:45 Rate is 94 beats/min. Rhythm is regular. CA interval is normal. QRS interval is normal. cp QT interval is normal. T waves are Inverted in leads III, aVR. Interpreted by me. Reviewed by me. Administered Medications: 18:31 Drug: NS 0.9% IV 1000 ml IV at 999 ml/hr Per protocol; 1000 mL bolus Route: IV; Rate: hb 999 ml/hr; Site: right antecubital; 20:03 Follow up: Response: No adverse reaction; IV Status: Completed infusion; IV Intake: jw7 1000ml 20:11 Drug: Oseltamivir PO 75 mg PO once Route: PO; jw7 21:00 Follow up: Response: No adverse reaction ha1 20:11 Drug: Rocephin IV 1 grams IV at calculated rate once; Given slow IV push per pharmacy jw7 instructions Route: IV; Rate: calculated rate; Site: right antecubital; 20:30 Follow up: Response: No adverse reaction ha1 21:15 Follow up: IV Status: Completed infusion; IV Intake: 100ml jw7 21:34 Not Given (Physician Discretion): ns 0.9% 1000 ml IV at 1 bolus Per protocol; 1000 mL jw7 bolus Disposition Summary: 08/01/23 21:11 Discharge Ordered Notes: Location: Home cp Problem: new cp Symptoms: have improved cp Condition: Stable cp Diagnosis - UTI/ Urinary tract infection, site not specified cp - Influenza due to identified novel influenza A virus cp - Weakness cp - Anemia, unspecified cp Followup: cp - With: Private Physician - When: 2 - 3 days - Reason: Recheck today's complaints Discharge Instructions: - Discharge Summary Sheet cp - Anemia cp - Influenza, Adult cp - Urinary Tract Infection, Adult cp - Weakness cp Forms: - Medication Reconciliation Form cp - Thank You Letter cp - Antibiotic Education cp - Prescription Opioid Use cp - Patient Portal Instructions cp - Leadership Thank You Letter cp Prescriptions: - cefpodoxime 200 mg Oral tablet - take 1 tablet ORAL route every 12 hours for 7 days with food; 14 tablet; cp Refills: 0, Product Selection Permitted - Tamiflu 75 mg Oral capsule - take 1 tablet ORAL route every 12 hours for 5 days; 10 tablet; Refills: 0, cp Product Selection Permitted Addendum: 08/04/2023 20:13 I was immediately available for consultation during this patient's visit. I did not e c2 personally see the patient or guide the patient's care.. Signatures: Dispatcher [employer] EDKY Amado Logan PA PA cp Baxter, Heather, RN RN Sindhu Garcia RN RN jw7 Samantha Cox RN RN cm10 Leopoldo Fonseca MD MD ec2 Екатерина Nobles RN ha1
--- NOTE | 2023-08-01 21:11 | ER ---
Nurse's Notes [facility] Name: Mark Graham Age: 53 yrs Sex: Male : 1970 Arrival Date: 08/01/2023 Time: 17:12 Bed 6 Private MD: Diagnosis: UTI/ Urinary tract infection, site not specified;Influenza due to identified novel influenza A virus;Weakness;Anemia, unspecified Presentation: 08/01 17:26 Chief complaint: Patient states: He has not been feeling well over since yesterday. Pt cm10 states that he called his oncologist and was told to come to the ED to ensure that he did not have an infection due to being on chemo. Pt recently started a new research trial for Pancreatic Cancer and takes oral chemo twice a day. Coronavirus screen: Vaccine status: Patient reports being unvaccinated. Client denies travel out of the [place] in the last 14 days. Ebola Screen: Patient denies travel to an Ebola-affected area in the 21 days before illness onset. No symptoms or risks identified at this time. Initial Sepsis Screen: Does the patient meet any 2 criteria? No. Patient's initial sepsis screen is negative. Initial Sepsis Screen: Does the patient have a suspected source of infection? No. Patient's initial sepsis screen is negative. Risk Assessment: Do you want to hurt yourself or someone else? Patient reports no desire to harm self or others. Onset of symptoms was August 01, 2023. 17:26 Method Of Arrival: Ambulatory 10 17:26 Acuity: JAZLYN 3 cm10 Historical: - Allergies: 17:26 No Known Allergies; cm10 - PMHx: 17:26 Gastroesophageal reflux disease; Hypertensive disorder; pancreatic cancer; cm10 - PSHx: 17:26 Cholecystectomy; cm10 - Immunization history:: Adult Immunizations unknown. - Social history:: Smoking status: Patient denies any tobacco usage or history of. Screenin:53 [facility] ED Fall Risk Assessment (Adult) Score/Fall Risk Level 3 or more points = High hb Risk Oriented to surroundings, Maintained a safe environment, Educated pt \T\ family on fall prevention, incl call for assistance when getting out of bed, Assessed \T\ reinforced patient's understanding of fall precautions. Abuse screen: Denies threats or abuse. Denies injuries from another. Nutritional screening: No deficits noted. Tuberculosis screening: No symptoms or risk factors identified. Assessment: 17:54 General: Appears in no apparent distress. Behavior is calm, cooperative. Pain: Denies hb pain. Neuro: Level of Consciousness is awake, alert, obeys commands, Oriented to person, place, time, situation. Cardiovascular: Patient's skin is warm and dry. Respiratory: Respiratory effort is even, unlabored, Respiratory pattern is regular, symmetrical. GI: No signs and/or symptoms were reported involving the gastrointestinal system. : No signs and/or symptoms were reported regarding the genitourinary system. EENT: No signs and/or symptoms were reported regarding the EENT system. Derm: Skin is dry, Skin is pale, Skin temperature is warm. Musculoskeletal: Reports generalized weakness. 18:32 Reassessment: Patient appears in no apparent distress at this time. Patient and/or hb family updated on plan of care and expected duration. Pain level reassessed. Patient is alert, oriented x 3, equal unlabored respirations, skin warm/dry/pink. 19:35 General: Appears comfortable, Behavior is calm, cooperative. Pain: Denies pain. Neuro: ha1 Level of Consciousness is awake, alert, obeys commands, Oriented to person, place, time, situation. Cardiovascular: Capillary refill < 3 seconds Patient's skin is warm and dry. Respiratory: Airway is patent Respiratory effort is even, unlabored, Respiratory pattern is regular, symmetrical. GI: Abdomen is flat, non-distended. Derm: Skin is dry, Skin is pale, Skin temperature is warm. Musculoskeletal: Circulation, motion, and sensation intact. Reports weakness in generalized. 20:40 Reassessment: Patient appears in no apparent distress at this time. No changes from jw7 previously documented assessment. Patient and/or family updated on plan of care and expected duration. Pain level reassessed. Patient is alert, oriented x 3, equal unlabored respirations, skin warm/dry/pink. 21:29 Reassessment: Patient and/or family updated on plan of care and expected duration. Pain ha1 level reassessed. Patient is alert, oriented x 3, equal unlabored respirations, skin warm/dry/pink. Vital Signs: 17:26 BP 115 / 77; Pulse 103; Resp 18; Temp 98.2; Pulse Ox 100% ; Weight 55 kg; cm10 18:31 BP 103 / 72; Pulse 95; Resp 16; Pulse Ox 98% on R/A; hb 18:56 BP 147 / 70; Pulse 91; Resp 15; Pulse Ox 100% on R/A; as6 19:45 BP 110 / 75; Pulse 93; Resp 18 S; Pulse Ox 99% on R/A; ha1 20:01 BP 113 / 69 LA Supine (auto/reg); Pulse 98 MON; Resp 16 S; Pulse Ox 100% on R/A; jw7 20:01 BP 102 / 77 LA Sitting (auto/reg); Pulse 105 MON; Resp 16 S; Pulse Ox 100% on R/A; jw7 20:01 BP 91 / 63 LA Standing (auto/reg); Pulse 113 MON; Resp 16 S; Pulse Ox 100% on R/A; jw7 21:08 BP 114 / 76; Pulse 92; Resp 15 S; Pulse Ox 98% on R/A; jw7 21:15 BP 116 / 75; Pulse 92; Resp 15 S; Pulse Ox 100% on R/A; jw7 ED Course: 17:16 Patient arrived in ED. mg5 17:17 Amado Logan PA is PHCP. cp 17:17 Leopoldo Fonseca MD is Attending Physician. cp 17:29 Triage completed. cm10 17:29 Arm band placed on Patient placed in an exam room, on a stretcher. cm10 17:36 Chest Single View XRAY In Process Unspecified. EDMS 17:50 Inserted saline lock: 20 gauge in right antecubital area, using aseptic technique. hb Blood collected. 17:53 Patient has correct armband on for positive identification. Provided Education on: hb tests, result times. 17:53 SARS-COV-2 Antigen Rapid Sent. hb 17:53 CBC with Diff Sent. hb 17:53 CMP Sent. hb 17:53 Lactate w/ 2H reflex if indic. Sent. hb 17:53 Protime (+inr) Sent. hb 17:53 Ptt, Activated Sent. hb 17:53 Urinalysis w/ reflexes Sent. hb 18:58 Adriana Euceda, RN is Primary Nurse. ko1 20:54 Primary Nurse role handed off by Adriana Euceda, RN as6 21:35 No provider procedures requiring assistance completed. IV discontinued, intact, jw7 bleeding controlled, No redness/swelling at site. Pressure dressing applied. Administered Medications: 18:31 Drug: NS 0.9% IV 1000 ml IV at 999 ml/hr Per protocol; 1000 mL bolus Route: IV; Rate: hb 999 ml/hr; Site: right antecubital; 20:03 Follow up: Response: No adverse reaction; IV Status: Completed infusion; IV Intake: jw7 1000ml 20:11 Drug: Oseltamivir PO 75 mg PO once Route: PO; jw7 21:00 Follow up: Response: No adverse reaction ha1 20:11 Drug: Rocephin IV 1 grams IV at calculated rate once; Given slow IV push per pharmacy jw7 instructions Route: IV; Rate: calculated rate; Site: right antecubital; 20:30 Follow up: Response: No adverse reaction ha1 21:15 Follow up: IV Status: Completed infusion; IV Intake: 100ml jw7 21:34 Not Given (Physician Discretion): ns 0.9% 1000 ml IV at 1 bolus Per protocol; 1000 mL jw7 bolus Medication: 17:55 VIS not applicable for this client. hb Intake: 20:03 IV: 1000ml; Total: 1000ml. jw7 21:15 IV: 100ml; Total: 1100ml. jw7 Outcome: 21:11 Discharge ordered by MD. cp 21:35 Discharged to home via wheelchair, with family, jw7 21:35 Condition: stable 21:35 Discharge instructions given to patient, Instructed on discharge instructions, follow up and referral plans. medication usage, Demonstrated understanding of instructions, follow-up care, medications, Prescriptions given X 2, 21:36 Patient left the ED. jw7 Signatures: Dispatcher [employer] EDMS Amado Logan PA PA cp Baxter, Heather, RN RN Valdo Clayton RN RN as6 Sindhu Garcia RN RN jw7 Екатерина Nobles RN RN ha1 Adriana Euceda RN RN Samantha Palmer RN RN cm10 Daniela Whittaker mg5 Corrections: (The following items were deleted from the chart) 19:56 18:56 BP 147 / 0; Pulse 91bpm; Resp 15bpm; Pulse Ox 100% RA; hb as6
[2023-08-01 21:56] VITALS: TEMP 98.2
[2023-08-01 22:09] VITALS: BP 116/75; O2SAT 100
--- NOTE | 2023-08-02 17:22 | EKG ---
Test Date: 2023-08-01 Test Time: 17:39:21 Digital Press Operator: COURTNEY MEASUREMENT RESULTS: Intervals: Rate: 94 [place]: 162 QRSD: 96 QT: 358 QTc: 447 [place]: P: 46 [place]: 162 QRS: 14 T: 4 INTERPRETIVE STATEMENTS: Normal sinus rhythm Normal ECG Compared to ECG 07/12/2023 07:11:52 Sinus tachycardia no longer present Myocardial infarct finding no longer present Electronically Signed On 08-02-23 17:20:07 COMPRESSOR ENGINEER by [place]
== END 2023-08-01 21:36 | disposition home or self-care (01) ==
LOC: ER 17:12
DX: N39.0 Urinary tract infection, site not specified (principal); J10.1 Influenza due to other identified influenza virus with other respiratory manifestations; D64.9 Anemia, unspecified; Z11.52 Encounter for screening for COVID-19
CPT/HCPCS: 96365; 96361; 93005; 87040 ×2; 87088; 85025; 81001; 87086; 36415; 87205 ×4; 85610; 83605; 85730; 87077 ×2; 87186 ×2; 85018; 85014; 80053; 87804 ×2; 71045; 99284; 87811; J7030

== ENCOUNTER 2023-08-13 10:05 | Emergency (ER) | payer OTHER ==
--- OUTSIDE RECORDS SUMMARY | 2023-08-13 10:10 | XMS REPORT | Clinical Summary ---
:1970 Author Organization [facility] MD Valladares [facility] Center Address [address] [place] [address] Care Team Providers Name Role Phone Akila [...] day as needed otherwise specified (constipation) . INV-([id number]) Take 4 184 capsule 0 Ac tive [id number] 100 mg capsules (400 3 023 capsuleIndications: [...] Take 4 184 capsule 0 Di scontinued [id number] 100 mg capsules (400 3 023 (Reorder) capsuleIndications: mg) by mouth Malignant neoplasm twice daily of body of pancreas for 21 days. Take with 8 oz of water on empty stomach (no food 2 hours before and 1 hour after dose). ciprofloxacin HCl Take 1 tablet 14 tablet 0 Discontinued (Cipro) 500 mg (500 mg) by 3 023 tabletIndications: mouth twice Intractable daily. 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 07/08/2023 Malignant neoplasm of body of pancreas 07/05/2023 Encounters Date Type Department Care Team Description 08/08/2023 Hospital Encounter Ambulatory Treatment Musekiwa-Arturo Malignant neoplasm of body of pancreas 3:45 PM [facility] Prudencio Jaylin maza APRN Discharge Disposition: Home - [address] 08/08/2023 [facility], 2nd Floor 11:59 PM Elevator C DIRECTOR [place] [address] 08/08/2023 Infusion MD Jaswinder Lopezwa-Arturo Adenoca rcinoma, NOS 7:30 AM [facility] - Jaylin Stark APRN of pancreas, NOS [address] [facility] 4th [place] [address] 08/08/2023 Orders Only Clinical Center for Gallego, Jen Maligna nt neoplasm Targeted Therapy S of body of pancreas [address] (Primary Dx) Main Bldg, 11th [place] [address] 08/08/2023 Orders Only Clinical Center for Gallego, Jen Targeted Therapy S [address] Main Bldg, 11th [place] [address] 08/08/2023 Orders Only Clinical Center for Musekiwa-Arturo Malign ant neoplasm Targeted Therapy , Jaylin, FOUNDRY OPERATOR of body of pancreas [address] (Primary Dx) Main Bldg, 11th [place] [address] 08/08/2023 Travel 08/07/2023 Orders Only Clinical Center for Musekiwa-Arturo Malign ant neoplasm Targeted Therapy , Jaylin, FOUNDRY OPERATOR of body of pancreas [address] (Primary Dx) Main Bldg, 11th [place] [address] 08/07/2023 Orders Only Clinical Center for Jen Gallego Targeted Therapy S [address] Main Bldg, 11th [place] [address] 08/07/2023 Travel 08/04/2023 Telemedicine Clinical Center for Musekiwa-Arturo Adenoc arcinoma, NOS 2:20 PM DIRECTOR OF STRATEGIC PROGRAMS Targeted Therapy , Jaylin, FOUNDRY OPERATOR of pancreas, NOS [address] Miri Shepherd, Main Bldg, 11th Floo michelle [place] [address] 08/02/2023 Telephone Clinical Center for Silvestre, Targeted Therapy REENA Minaya [address] Main Bldg, 11th [place] [address] 08/01/2023 Telephone Clinical Center for Monae, Fatigue Targeted Therapy Madelin Gaona RN [address] Main Bldg, 11th [place] [address] 07/31/2023 Orders Only Clinical Center for Gallego Jen Maligna nt neoplasm Targeted Therapy S of body of pancreas [address] (Primary Dx) Main Bldg, 11th [place] [address] 07/26/2023 Hospital Encounter Clinical and Pavel Holman Maligna nt neoplasm of body of pancreas 4:59 PM DIRECTOR OF STRATEGIC PROGRAMS Translational Research MD Santi hair Disposition: Home - Center 07/26/[address] 11:59 PM Main Bldg, 1st Floor DIRECTOR OF STRATEGIC [place] [address] 07/26/2023 Follow-Up Clinical Center for Nellie Coon (Primary Dx); 4:00 PM DIRECTOR OF STRATEGIC PROGRAMS Targeted Therapy MD Loi Adenocarcinoma, NOS of pancr eas, NOS; [address] Malignant neoplasm of body o f pancreas Main Bldg, 11 [place] [address] 07/26/2023 Hospital Encounter Diagnostic Laboratory Musekiwa-Adje i Malignant neoplasm of body of pancreas 2:00 PM DIRECTOR OF STRATEGIC PROGRAMS [place] Jaylin APRN Discharge Disposition: Home - [address] 07/26/2023 Main Bldg, Elevator A 4:58 [place] [address] 07/26/2023 Orders Only Clinical Center for Arnie Bella Maligna nt neoplasm Targeted Therapy H III, PharmD of body of pancreas [address] (Primary Dx) Main Bldg, 11th [place] [address] 07/26/2023 Travel 07/26/2023 Orders Only Clinical Center for Gallego Jen Targeted Therapy S [address] Main Bldg, 11th [place] [address] 07/25/2023 Hospital Encounter Interventional Pavel Holman, Adeno carcinoma, NOS of pancreas, NOS (Primary Dx); 10:15 AM Radiology MD Encounter for preprocedural examination DIRECTOR OF STRATEGIC PROGRAMS - [address] Zully, Discharge Disposition: Home 07/25/2023 [facility], 4th Remy or Avis Mason PA-C 11:59 PM Elevator T DIRECTOR [place] [address] 07/25/2023 Travel 07/20/2023 Follow-Up Clinical Center for Musekiwa-Arturo Adenoc arcinoma, NOS of pancreas, NOS (Primary Dx); 2:20 PM CDT Targeted Therapy , Jaylin, FOUNDRY OPERATOR Secondary malignant neoplasm of liver; [address] Oneal Jesus, Pulmonary embolism, not othe rwise specified; Main Bldg, 11 Floo r Abscess of liver; Elevator C Cholangitis; [place] [address] 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; [phone] Nausea; Cancer associat ed pain; Hyperkalemia 07/20/2023 Hospital Encounter Diagnostic Laboratory Antoinette Ulloag, Malignant neoplasm of body of pancreas 12:00 PM Center Discharge Disposition: Home CDT - [address] 07/20/2023 Main Bldg, Elevator A 11:59 [place] [address] CDT 07/20/2023 Orders Only Clinical Center for Eliz Camejo, Targeted Therapy [facility] [address] Main Bldg, 11th [place] [address] 07/20/2023 Travel 07/20/2023 Orders Only Clinical Center for Musekiwa-Arturo Malign ant neoplasm Targeted Therapy , Jaylin, FOUNDRY OPERATOR of body of pancreas [address] (Primary Dx) Main Bldg, 11th [place] [address] 07/20/2023 Orders Only Clinical Center for Jen Gallego Adenoca rcinoma, NOS Targeted Therapy S of pancreas, NOS [address] (Primary Dx) Main Bldg, 11th [place] [address] 07/20/2023 Orders Only Clinical Center for Jen Gallego Targeted Therapy S [address] Main Bldg, 11th [place] [address] 07/14/2023 Orders Only Clinical Center for Jen Gallego Maligna nt neoplasm of body of pancreas (Primary Dx); Targeted Therapy S Adenocarcinoma, NOS of pancr eas, NOS [address] Main Bldg, 11th [place] [address] 07/13/2023 Ancillary Procedure Image Library Pengpil Mckayla 8:15 PM CDT [address], FOUNDR[place] [address] 07/13/2023 Ancillary Procedure Image Library Charleneoppil Mckayla 8:10 PM CDT [address], [place] [address] 07/13/2023 Ancillary Procedure Image Library Charleneoppijaspal Mckayla Canceled 8:05 PM CDT [address], FOUNDRY OPERATOR (Appointment N ot Trezevant Needed) [place] [address] 07/13/2023 Orders Only Pain Management Cent er Katya, Cancer associated [address] MD pain (Primary Dx) Main Bldg, 4th [place] [address] 07/13/2023 Orders Only Clinical Center for Kimberly Arrington Targeted Therapy [facility] [address] Main Bldg, 11th [place] [address] 07/13/2023 Orders Only Clinical Center for Arnie Bella Targeted Therapy H III, PharmD [address] Main Bldg, 11th [place] [address] 07/12/2023 Emergency MAIN P06A Mariusz Campbell, Intractable abdominal pain ( Primary Dx); 11:12 AM Shira Denney MD Tachycardia; CDT - Skip Mendez, Malignant neoplasm of body o f pancreas; 07/14/2023 [place] [address] Cancer; 1:25 PM CDT [phone] Cari Marshall MD Constipation, not otherwise specified; PhD Pulmonary air embolism Vu, Nataliya B, Discharge Dispo sition: Home 07/12/2023 Travel 07/10/2023 Education Interventional Wilma, Radiology Francie Acosta MA [address] [facility], 4th [place] [address] 07/06/2023 Hospital Encounter Clinical and Musekiwa-Arturo Adenoca rcinoma, NOS of pancreas, NOS 9:15 AM CDT Jaylin Santiago APRN Dis charge Disposition: Home Center [address] Main Bldg, 2nd [place] [address] 07/06/2023 Hospital Encounter Clinical and Musekiwa-Arturo Maligna nt neoplasm of body of pancreas (Primary Dx) 9:15 AM CDT Translational Research Jaylin APRN Discharge Disposition: Home Center Haley Licona [address] Billy Proctor RN Main Bldg, 2nd [place] [address] 07/06/2023 Hospital Encounter Diagnostic Laboratory Charlie Ulloa, Malignant neoplasm of body of pancreas 8:15 AM CDT Center Discharge Disposition: Home - [address] 07/06/2023 Main Bldg, Elevator A 9:14 [place] [address] 07/06/2023 Orders Only Clinical Center for Jen Gallego Targeted Therapy S [address] Main Bldg, 11th [place] [address] 07/06/2023 Travel 07/05/2023 Follow-Up Clinical Center for Charlie Ulloa, Malignan t neoplasm of body of pancreas (Primary Dx); 11:30 AM Targeted Therapy Adenocarcinoma, NOS of pancr eas, NOS CDT [address] Main Bldg, 11th [place] [address] 07/05/2023 Documentation Clinical Center for Jen Gallego Targeted Therapy S [address] Main Bldg, 11th [place] [address] 07/05/2023 Orders Only Clinical Center for Musekiwa-Arturo Malign ant neoplasm Targeted Therapy Jaylin APRN of body of pancreas [address] (Primary Dx) Main Bldg, 11th [place] [address] 07/05/2023 Orders Only Clinical Center for Charlie Ulloa, Malignan t neoplasm Targeted Therapy of body of pancreas [address] (Primary Dx) Main Bldg, 11th [place] [address] 07/05/2023 Travel 07/05/2023 Orders Only Clinical Center for Arnie Bella Targeted Therapy H III, PharmD [address] Main Bldg, 11th [place] [address] 07/04/[address] Imaging Musekiwa-Arturo Adenocarcinoma, NOS 6:35 PM CDT [address] , Jaylin, FOUNDRY OPERATOR of pancreas, NOS [facility], 7th [place] [address] 07/04/2023 Hospital Encounter Cardiopulmonary Cent er Musekiwa-Arturo Adenocarcinoma, NOS of pancr eas, NOS 10:48 AM [address] Jaylin, FOUNDRY OPERATOR Discharge Disposition: Home CDT - Main Bldg, 6th Floor 07/04/2023 Elevator C 11:59 [place] [address] CDT [phone] 07/04/2023 Hospital Encounter [facility] Musekiwa-Adje i Adenocarcinoma, NOS of pancreas, NOS 8:00 AM CDT - Cardiology , Jaylin, FOUNDRY OPERATOR Discharge Disposition: Home - [address] 07/04/2023 Main Bldg, 2nd Floor 10:47 [place] [address] 07/04/2023 Hospital Encounter Clinical and Musekiwa-Arturo Adenoca rcinoma, NOS of pancreas, NOS 7:00 AM CDT Translational Research Jaylin, FOUNDRY OPERATOR Discharge Disposition: Home Center [facility], [address] Alexi Chao RN Main Bldg, 1st [place] [address] 07/04/2023 Hospital Encounter Clinical and Musekiwa-Arturo Adenoca rcinoma, NOS of pancreas, NOS 7:00 AM CDT Translational Research Jaylin APRN Dis charge Disposition: Home Center [address] Main Bldg, 1st [place] [address] 07/04/2023 Orders Only Clinical Center for Eliz Camejo, Targeted Therapy [facility] [address] Main Bldg, 11th [place] [address] 07/04/2023 Orders Only Clinical Center for Arnie Bella Targeted Therapy H III, PharmD [address] Main Bldg, 11th [place] [address] 07/04/2023 Travel 07/03/2023 Orders Only Clinical Center for Jen Gallego Adenoca rcinoma, NOS Targeted Therapy S of pancreas, NOS [address] (Primary Dx) Main Bldg, 11th [place] [address] 06/30/2023 Orders Only Main Interventional Leila, Radiology HOLLY Pritchett [address] Pavilion Bldg, 3rd [place] [address] 06/28/2023 Orders Only Clinical Center for Jen Gallego Adenoca rcinoma, NOS Targeted Therapy S of pancreas, NOS [address] (Primary Dx) Main Bldg, 11th [place] [address] 06/20/2023 Documentation Clinical Center for Jen Gallego Targeted Therapy S [address] Main Bldg, 11th [place] [address] 06/12/2023 Ancillary Procedure Image Library Pavel Holman, Cancer 10:40 PM [place] [address] 06/12/2023 Ancillary Procedure Image Library Pavel Holman Cancer 10:35 PM Sh[place] [address] 06/12/2023 Ancillary Procedure Image Library Pavel Holman, Cancer 10:30 PM 151Madeleine [place] [address] 06/12/2023 Ancillary Procedure Image Library Pavel Holman, Cancer 10:25 PM 151Madeleine [place] [address] 06/12/2023 Ancillary Procedure Image Library Pavel Holman, Cancer 10:20 PM 151Madeleine [place] [address] 06/08/2023 Orders Only Pain Management Cent er Kera, Chronic pain [address] [facility] MD Tommie (Primary Dx) Main Bldg, 4th Floor Elevator A [place] [id number] 06/07/2023 Telemedicine Clinical Center for Miri Shepherd, Adenoca rcinoma, NOS 2:20 PM CDT Targeted Therapy MD Loi of pancreas, NOS [address] Main Bldg, 11th [place] [address] 05/31/2023 Hospital Encounter Pain Management Cent er Carlton Wooten, Cancer associated pain (Prim eitan Dx); 1:24 PM [facility] Adenocarcinoma, NOS of pancr eas, NOS; - Main Bldg, 4th Floor Abdominal pain, epigastric; 05/31/2023 Elevator A senior care current use of opi ate analgesic 11:59 PM [place] [id number] Discharge Disposition: Home CDT [phone] 05/31/2023 Follow-Up Gastrointestinal Pavel Holman, Adenocarc inoma, NOS 1:00 PM CDT Lana LEE of pancreas, NOS [address] Main Bldg, 7th [place] [address] 05/31/2023 Travel 05/30/2023 Hospital Encounter Diagnostic Laboratory Pavel Holman , Adenocarcinoma, NOS of pancreas, NOS 11:48 AM [place] Discharge Disposition: Home CDT - 151Madeleine Jacobs 05/30/2023 Main dg, Elevator A 11:59 PM [place] [id number] CDT 05/29/2023 Lab Requisition [facility] Jamaal Bauman MD Disposition: Home Radha Zambrano MD 05/24/2023 Ancillary Procedure Image Library Pavel Holman, Cancer 8:00 PM CDT [address] [place] [address] 05/24/2023 Orders Only Gastrointestinal Ko, Akila, Adenocarcin caroline, NOS Center PA of pancreas, NOS [address] (Primary Dx) Main Bldg, 7th [place] [address] 05/23/2023 Follow-Up Gastrointestinal Ko, Akila, Adenocarcin caroline, NOS 1:00 PM CDT [place] PA of pancreas, NOS [address] Pavel Holman, [facility], [address] [place], [place] [address] [address] 05/23/2023 Travel 05/18/2023 Ancillary Procedure MD Jaswinder Wu Ko, Akila, Ad enocarcinoma, NOS 6:35 AM CDT [facility] PA of pancreas, NOS [address] [facility] 2nd [place] [address] 05/18/2023 Travel 05/17/2023 Hospital Encounter Diagnostic Laboratory Ko, Akila, Adenocarcinoma, NOS of pancreas, NOS 2:00 PM CDT [place] PA Discharge Disposition: Home - [address] 05/17/2023 Main [facility], Elevator A 11:59 [place] [address] CDT 05/17/2023 Office Visit Gastrointestinal Ko, Akila, Adenocarcin caroline, NOS 1:30 PM CDT [place] PA of pancreas, NOS [address] (Primary Dx) Main Bldg, 7th [place] [address] 05/17/2023 Travel 05/15/2023 NPR [facility] PATIENT ACCESS 2:00 PM CDT 05/15/2023 Travel 05/15/2023 Orders Only Gastrointestinal Ko, Akila, Adenocarcin caroline, NOS Center PA of pancreas, NOS [address] (Primary Dx) Main Bldg, 7th Floor Elevator A [place] [id number] 05/08/2023 Travel after 08/13/2022 Surgical History Surgery Date Site/Laterality Comments LIPOMA [...] Comments Blood Pressure 116/81 07/26/2023 2:27 PM DIRECTOR OF STRATEGIC PROGRAMS Pulse 105 07/26/2023 2:27 PM DIRECTOR OF STRATEGIC PROGRAMS Temperature 36.9 C (98.4 F) 07/26/2023 2:27 PM DIRECTOR OF STRATEGIC PROGRAMS Respiratory Rate 18 07/26/2023 2:27 PM DIRECTOR OF STRATEGIC PROGRAMS Oxygen Saturation 99% 07/26/2023 2:27 PM DIRECTOR OF STRATEGIC PROGRAMS Inhaled Oxygen Concentration - - Weight 73.8 kg (162 lb 11.2 oz) 08/08/2023 3:52 PM DIRECTOR OF STRATEGIC PROGRAMS Height 166.1 cm (5' 5.39") 07/26/2023 2:27 PM DIRECTOR OF STRATEGIC PROGRAMS Body Mass Index 26.75 07/26/2023 2:27 PM DIRECTOR OF STRATEGIC PROGRAMS Plan of Treatment Date Type Department Care Team Description 08/14/2023 Infusion MD Jaswinder Snell, 8:45 AM DIRECTOR OF STRATEGIC PROGRAMS - Infusion Jaylin, JULIANE [address] [facility] [address] 4th [place] [address] [place], [place] [phone] [address] 08/15/2023 Ancillary Procedure MD Jaswinder Snell, 1:20 PM DIRECTOR OF STRATEGIC PROGRAMS [address] [facility] Jaylin, FOUNDRY OPERATOR 2nd Floor [address] [place] [address] [place] [address] 08/16/2023 Appointment Cardiopulmonary Cent er [place], 8:00 AM DIRECTOR OF STRATEGIC PROGRAMS [address] Jaylin, FOUNDRY OPERATOR Main Bldg, 6th Floor [address] [place] [address] [place] [phone] [address] 08/16/2023 Appointment [facility] Maddy Hewitt, 8:00 AM DIRECTOR OF STRATEGIC PROGRAMS [address] [place] [address] [phone] [place] [address] 08/16/2023 Follow-Up Clinical Center for Miri Shepherd, 2:00 PM DIRECTOR OF STRATEGIC PROGRAMS Targeted Therapy MD Loi [address] Bldg, [address] [place] [address] [phone] Health Maintenance Due Date Last Done Comments COVID-19 Vaccination (#1) 1975 Procedures Procedure Name Priority Date/Time Associated Comments Diagnosis URINALYSIS MICROSCOPIC Routine 08/08/2023 8:01 Malignant neopl asm Results for this EXAM AM DIRECTOR OF STRATEGIC PROGRAMS of body of procedure are i n pancreas the results section. .CBC Routine 08/08/2023 8:01 Malignant neoplasm Result s for this AM DIRECTOR OF STRATEGIC PROGRAMS of body of procedure are i n pancreas the results section. THYROID STIMULATING Routine 08/08/2023 8:01 Malignant neoplasm Results for this HORMONE AM DIRECTOR OF STRATEGIC PROGRAMS of body of procedure are i n pancreas the results section. URINALYSIS WITH Routine 08/08/2023 8:01 Malignant neoplasm Res ults for this MICROSCOPIC IF INDICATED AM DIRECTOR OF STRATEGIC PROGRAMS of body of pro cedure are in pancreas the results section. APTT Routine 08/08/2023 8:01 Malignant neoplasm Result s for this AM DIRECTOR OF STRATEGIC PROGRAMS of body of procedure are i n pancreas the results section. PROTHROMBIN TIME Routine 08/08/2023 8:01 Malignant neoplasm Re sults for this AM DIRECTOR OF STRATEGIC PROGRAMS of body of procedure are i n pancreas the results section. LIPASE LEVEL Routine 08/08/2023 8:01 Malignant neoplasm Result s for this AM DIRECTOR OF STRATEGIC PROGRAMS of body of procedure are i n pancreas the results section. AMYLASE LEVEL Routine 08/08/2023 8:01 Malignant neoplasm Resul ts for this AM DIRECTOR OF STRATEGIC PROGRAMS of body of procedure are i n pancreas the results section. PHOSPHORUS LEVEL Routine 08/08/2023 8:01 Malignant neoplasm Re sults for this AM DIRECTOR OF STRATEGIC PROGRAMS of body of procedure are i n pancreas the results section. MAGNESIUM LEVEL Routine 08/08/2023 8:01 Malignant neoplasm Res ults for this AM DIRECTOR OF STRATEGIC PROGRAMS of body of procedure are i n pancreas the results section. URIC ACID Routine 08/08/2023 8:01 Malignant neoplasm Result s for this AM DIRECTOR OF STRATEGIC PROGRAMS of body of procedure are i n pancreas the results section. LACTATE DEHYDROGENASE Routine 08/08/2023 8:01 Malignant neopla sm Results for this AM DIRECTOR OF STRATEGIC PROGRAMS of body of procedure are i n pancreas the results section. COMPLETE BLOOD COUNT W/ Routine 08/08/2023 8:01 Malignant neop lasm Results for this DIFFERENTIAL AM DIRECTOR OF STRATEGIC PROGRAMS of body of procedure are i n pancreas the results section. COMPREHENSIVE METABOLIC Routine 08/08/2023 8:01 Malignant neop lasm Results for this PANEL AM DIRECTOR OF STRATEGIC PROGRAMS of body of procedure are i n pancreas the results section. CARBOHYDRATE ANTIGEN Routine 08/08/2023 8:01 Malignant neoplas m Results for this 19-9 AM DIRECTOR OF STRATEGIC PROGRAMS of body of procedure are i n pancreas the results section. CARCINOEMBRYONIC ANTIGEN Routine 08/08/2023 8:01 Malignant rachel plasm Results for this AM DIRECTOR OF STRATEGIC PROGRAMS of body of procedure are i n pancreas the results section. CONFIRM ABORH TYPE Routine 08/08/2023 8:01 Adenocarcinoma, Res ults for this AM DIRECTOR OF STRATEGIC PROGRAMS NOS of pancreas, procedure a re in NOS the results section. TYPE AND SCREEN Routine 08/07/2023 1:44 Adenocarcinoma, Result s for this PM DIRECTOR OF STRATEGIC PROGRAMS NOS of pancreas, procedure a re in NOS the results section. URINALYSIS MICROSCOPIC Routine 07/26/2023 2:14 Malignant neopl asm Results for this EXAM PM DIRECTOR OF STRATEGIC PROGRAMS of body of procedure are i n pancreas the results section. .CBC Routine 07/26/2023 2:14 Malignant neoplasm Result s for this PM DIRECTOR OF STRATEGIC PROGRAMS of body of procedure are i n pancreas the results section. THYROID STIMULATING Routine 07/26/2023 2:14 Malignant neoplasm Results for this HORMONE PM DIRECTOR OF STRATEGIC PROGRAMS of body of procedure are i n pancreas the results section. URINALYSIS WITH Routine 07/26/2023 2:14 Malignant neoplasm Res ults for this MICROSCOPIC IF INDICATED PM DIRECTOR OF STRATEGIC PROGRAMS of body of pro cedure are in pancreas the results section. APTT Routine 07/26/2023 2:14 Malignant neoplasm Result s for this PM DIRECTOR OF STRATEGIC PROGRAMS of body of procedure are i n pancreas the results section. PROTHROMBIN TIME Routine 07/26/2023 2:14 Malignant neoplasm Re sults for this PM DIRECTOR OF STRATEGIC PROGRAMS of body of procedure are i n pancreas the results section. LIPASE LEVEL Routine 07/26/2023 2:14 Malignant neoplasm Result s for this PM DIRECTOR OF STRATEGIC PROGRAMS of body of procedure are i n pancreas the results section. AMYLASE LEVEL Routine 07/26/2023 2:14 Malignant neoplasm Resul ts for this PM DIRECTOR OF STRATEGIC PROGRAMS of body of procedure are i n pancreas the results section. PHOSPHORUS LEVEL Routine 07/26/2023 2:14 Malignant neoplasm Re sults for this PM DIRECTOR OF STRATEGIC PROGRAMS of body of procedure are i n pancreas the results section. MAGNESIUM LEVEL Routine 07/26/2023 2:14 Malignant neoplasm Res ults for this PM DIRECTOR OF STRATEGIC PROGRAMS of body of procedure are i n pancreas the results section. URIC ACID Routine 07/26/2023 2:14 Malignant neoplasm Result s for this PM DIRECTOR OF STRATEGIC PROGRAMS of body of procedure are i n pancreas the results section. LACTATE DEHYDROGENASE Routine 07/26/2023 2:14 Malignant neopla sm Results for this PM DIRECTOR OF STRATEGIC PROGRAMS of body of procedure are i n pancreas the results section. COMPLETE BLOOD COUNT W/ Routine 07/26/2023 2:14 Malignant neop lasm Results for this DIFFERENTIAL PM DIRECTOR OF STRATEGIC PROGRAMS of body of procedure are i n pancreas the results section. COMPREHENSIVE METABOLIC Routine 07/26/2023 2:14 Malignant neop lasm Results for this PANEL PM DIRECTOR OF STRATEGIC PROGRAMS of body of procedure are i n pancreas the results section. CARBOHYDRATE ANTIGEN Routine 07/26/2023 2:14 Malignant neoplas m Results for this 19-9 PM DIRECTOR OF STRATEGIC PROGRAMS of body of procedure are i n pancreas the results section. CARCINOEMBRYONIC ANTIGEN Routine 07/26/2023 2:14 Malignant rachel plasm Results for this PM DIRECTOR OF STRATEGIC PROGRAMS of body of procedure are i n [...] PANEL AM CDT of body of pancreas [facility] Routine 07/05/2023 4:07 Adenocarcinoma, Results for [...] 10/13/2022 11:44 Cancer Results for this PM DIRECTOR OF STRATEGIC PROGRAMS procedure are i n the results section. OSI CT ABDOMEN Routine 10/13/2022 11:43 Cancer Results f or this PM DIRECTOR OF STRATEGIC PROGRAMS procedure are i n the results section. PATHOLOGY OUTSIDE Routine 09/01/2022 Results fo r this INTERPRETATION procedure are in the results section. after 08/13/2022 Results Urinalysis Microscopic Exam (08/08/2023 8:01 AM DIRECTOR OF STRATEGIC PROGRAMS)Only the most recent of3 resultswithin the time period is included. [facility] gist Method Time Signature Urine WBC 0-2 None Seen, 08/08/2023 [place] Rare, 0-2, 8:21 AM DIRECTOR OF STRATEGIC PROGRAMS <1 /HPF Urine RBC None Seen None Seen, 08/08/2023 [place] Rare, 0-2, 8:21 AM DIRECTOR OF STRATEGIC PROGRAMS <1 /HPF Urine Mucous Trace Not Seen, 08/08/2023 [place] Trace /HPF 8:21 AM DIRECTOR OF STRATEGIC PROGRAMS Urine Bacteria Not Seen Not Seen 08/08/2023 [place] /HPF 8:21 AM DIRECTOR OF STRATEGIC PROGRAMS Urine Squamous Not Seen Not Seen, 08/08/2023 [place] Epithelial OCC, Rare 8:21 AM DIRECTOR OF STRATEGIC PROGRAMS Cells /HPF Specimen Anatomical Collection Method Collection Time Receive d Time (Source) Location / / Volume Laterality Urine Voided urine Non-blood 08/08/2023 8:01 AM 8:03 specimen / Unknown Collection / DIRECTOR OF STRATEGIC PROGRAMS AM DIRECTOR OF STRATEGIC PROGRAMS Unknown Jaylin Snell APRN LAB BLOOD ORDERABLES Performing Organization Address City/State/ZIP Code Phon e Number [facility] [place] [address] [place] [address], [place] [address] (ABNORMAL) .CBC (08/08/2023 8:01 AM DIRECTOR OF STRATEGIC PROGRAMS)Only the most recent of10 resultswithin the time period is included. [facility] Method Time Signature White Blood Cell 12.5 (H) 4.1 - 08/08/2023 [place] 10.5 K/uL 8:14 AM DIRECTOR OF STRATEGIC PROGRAMS Red Blood Cell 3.06 (L) 4.30 - 08/08/2023 [place] 6.04 M/uL 8:14 AM DIRECTOR OF STRATEGIC PROGRAMS Hemoglobin 7.8 (L) 13.3 - 08/08/2023 [place] 17.4 g/dL 8:14 AM DIRECTOR OF STRATEGIC PROGRAMS Hematocrit 25.0 (L) 39.5 - 08/08/2023 [place] 51.8 % 8:14 AM DIRECTOR OF STRATEGIC PROGRAMS Mean Cell Volume 82 82 - 99 08/08/2023 [place] fL 8:14 AM DIRECTOR OF STRATEGIC PROGRAMS Mean Cell 25.5 (L) 26.6 - 08/08/2023 [place] Hemoglobin 33.2 pg 8:14 AM DIRECTOR OF STRATEGIC PROGRAMS Mean Cell 31.2 31.1 - 08/08/2023 [place] Hemoglobin 35.2 g/dL 8:14 AM DIRECTOR OF STRATEGIC PROGRAMS Concentration RDW-SD 48.4 37.5 - 08/08/2023 [place] 49.7 fL 8:14 AM DIRECTOR OF STRATEGIC PROGRAMS Red Cell Diameter 16.0 (H) 11.6 - 08/08/2023 [place] Width 15.5 % 8:14 AM DIRECTOR OF STRATEGIC PROGRAMS Platelet 369 160 - 397 08/08/2023 [place] K/uL 8:14 AM DIRECTOR OF STRATEGIC PROGRAMS Mean Platelet 9.3 9.1 - 08/08/2023 [place] Volume 12.6 fL 8:14 AM DIRECTOR OF STRATEGIC PROGRAMS Neutrophil % 79.0 (H) 43.2 - 08/08/2023 [place] 72.7 % 8:14 AM DIRECTOR OF STRATEGIC PROGRAMS Lymphocyte % 8.8 (L) 16.8 - 08/08/2023 [place] 46.2 % 8:14 AM DIRECTOR OF STRATEGIC PROGRAMS Monocyte % 10.8 5.1 - 08/08/2023 [place] 12.5 % 8:14 AM DIRECTOR OF STRATEGIC PROGRAMS Eosinophil % 0.6 0.4 - 6.3 08/08/2023 [place] % 8:14 AM DIRECTOR OF STRATEGIC PROGRAMS Basophil % 0.3 0.2 - 1.4 08/08/2023 [place] % 8:14 AM DIRECTOR OF STRATEGIC PROGRAMS IGRE % 0.5 0.1 - 1.5 08/08/2023 [place] % 8:14 AM DIRECTOR OF STRATEGIC PROGRAMS Comment: The IGRE% includes Metamyelocyt es, Myelocytes and Promyelocytes. Neutrophil Abs 9.90 (H) 1.95 - 7.25 K/uL 08/08/2023 8:14 AM [facility] Lymphocyte Abs 1.10 1.01 - 3.24 K/uL 08/08/2023 8:14 AM [facility] Monocyte Abs 1.35 (H) 0.24 - 0.85 K/uL 08/08/2023 8:14 AM [facility] Eosinophil Abs 0.08 0.02 - 0.50 K/uL 08/08/2023 8:14 AM [facility] Basophil Abs 0.04 0.02 - 0.09 K/uL 08/08/2023 8:14 AM [facility] IG Abs 0.06 0.01 - 0.12 K/uL 08/08/2023 8:14 AM [facility] Specimen Anatomical Collection Method / Collection Time Recei maria isabel Time (Source) Location / Volume Laterality Blood Peripheral blood Venipuncture / 08/08/2023 8:01 2022 8:03 specimen / Unknown Unknown AM DIRECTOR OF STRATEGIC PROGRAMS AM DIRECTOR OF STRATEGIC PROGRAMS Jaylin Snell APRN LAB BLOOD ORDERABLES Performing Organization Address City/State/ZIP Code Phon e Number [facility] [place] [address] [place] [address] [facility], [facility] [address] (ABNORMAL) Comprehensive Metabolic Panel (08/08/2023 8:01 AM DIRECTOR OF STRATEGIC PROGRAMS)Only the most recent of6 resultswithin the time period is included. P athologist Signature Bilirubin Total 0.7 <=1.2 mg/dL 08/08/2023 [place] 8:46 AM DIRECTOR OF STRATEGIC PROGRAMS Comment: Indocyanine Green (ICG) may cause falsel y elevated bilirubin results. Total and direct bilirubin must not be measured from samples containing indocyanine green. False elevation of total bilirubin can be seen in patients with IgG concentration s above 28 g/L. This result was previously suppressed fr om the chart. Bilirubin Direct 0.2 <=0.3 mg/dL 08/08/2023 8:46 AM T [place] Comment: Indocyanine Green (ICG) may cause falsel y elevated bilirubin results. Total and direct bilirubin must not be measured from samples containing indocyanine green. This result was previously suppressed fr om the chart. Bilirubin Indirect 0.5 0.0 - 0.9 mg/dL 08/08/2023 8:46 AM [facility] Comment: This result was previously supp ressed from the chart. eGFR 110 >=60 mL/min/1.73 sq. m 08/08/2023 8:46 A M [facility] Comment: The eGFRcr is calculated with [...] G2 fulfill criteria for CKD. Tot Protein 6.8 6.4 - 8.3 gm/dL 08/08/2023 8:46 AM [facility] Comment: This result was previously supp ressed from the chart. Calcium Level Total 9.3 8.2 - 10.2 mg/dL 08/08/2023 8: 46 AM [facility] Comment: This result was previously supp ressed from the chart. Alkaline Phosphatase 114 40 - 129 U/L 08/08/2023 8:46 AM [facility] Comment: This result was previously supp ressed from the chart. Albumin Level 3.2 (L) 3.5 - 5.2 gm/dL 08/08/2023 8:46 AM [facility] Comment: This result was previously supp ressed from the chart. AST 30 <=40 U/L 08/08/2023 8:46 AM [facility] Comment: This result was previously supp ressed from the chart. ALT 14 <=41 U/L 08/08/2023 8:46 AM [facility] Comment: This result was previously supp ressed from the chart. Sodium Level 133 (L) 136 - 145 mmol/L 08/08/2023 8:46 AM [facility] Comment: This result was previously supp ressed from the chart. Potassium Level 5.1 (H) 3.4 - 4.5 mmol/L 08/08/2023 8:46 A M [facility] Comment: This result was previously supp ressed from the chart. Chloride 94 (L) 98 - 107 mmol/L 08/08/2023 8:46 AM [facility] Comment: This result was previously supp ressed from the chart. CO2 28 22 - 29 mmol/L 08/08/2023 8:46 AM [facility] Comment: This result was previously supp ressed from the chart. Anion Gap 11 4 - 14 mmol/L 08/08/2023 8:46 AM [facility] Comment: This result was previously supp ressed from the chart. Creatinine 0.69 0.67 - 1.17 mg/dL 08/08/2023 8:46 AM [facility] Comment: This result was previously supp ressed from the chart. BUN 15 6 - 23 mg/dL 08/08/2023 8:46 AM [facility] Comment: This result was previously supp ressed from the chart. Glucose Level 114 (H) 70 - 99 mg/dL 08/08/2023 8:46 AM [facility] Comment: Effective 04/13/16, the glucose reference intervals have been updated based on [place] [employer] guidelines (Standards of Medical Care [...] Volume Laterality Blood Peripheral blood Venipuncture / 08/08/2023 8:01 2022 8:03 specimen / Unknown Unknown AM DIRECTOR OF STRATEGIC PROGRAMS AM DIRECTOR OF STRATEGIC PROGRAMS Jaylin Snell APRN LAB BLOOD ORDERABLES Performing Organization Address City/[facility] [place] [address] [place] [address] [facility], [facility] [address] Confirm ABORh (08/08/2023 8:01 AM DIRECTOR OF STRATEGIC PROGRAMS) P athologist Signature ABORh Confirm O POS 08/06/2023 [place] MD [place] 6:00 PM DIRECTOR OF STRATEGIC PROGRAMS [facility] Specimen Anatomical Collection Method / Collection Time Recei maria isabel Time (Source) Location / Volume Laterality Blood Peripheral blood Venipuncture / 08/08/2023 8:01 2022 8:03 specimen / Unknown Unknown AM DIRECTOR OF STRATEGIC PROGRAMS AM DIRECTOR OF STRATEGIC PROGRAMS Jaylin Snell APRN BLOOD BANK TEST ORDERABLES Performing Organization Address City/[facility]/ZIP Code Phon e Number [place] MD [place] [facility] [place] [address] CENTER - TRANSFUSION [facility] [place] SERVICES Transfusion Services [address] [phone] (ABNORMAL) aPTT (08/08/2023 8:01 AM DIRECTOR OF STRATEGIC PROGRAMS)Only the most recent of5 resultswithin the time period is included. P athologist Signature Activated PTT 53.2 (H) 24.1 - 08/08/2023 [place] 35.5 8:40 AM DIRECTOR OF STRATEGIC PROGRAMS second(s) Specimen Anatomical Collection Method / Collection Time Recei maria isabel Time (Source) Location / Volume Laterality Blood Peripheral blood Venipuncture / 08/08/2023 8:01 2022 8:03 specimen / Unknown Unknown AM DIRECTOR OF STRATEGIC PROGRAMS AM DIRECTOR OF STRATEGIC PROGRAMS Jaylin Snell APRN LAB BLOOD ORDERABLES Performing Organization Address City/[facility]/ZIP [place] [address], [facility] [address] (ABNORMAL) CA 19-9 (08/08/2023 8:01 AM DIRECTOR OF STRATEGIC PROGRAMS)Only the most recent of5 results within the time period is included. P athologist Signature CA 19-9 12,097.5 <=35.0 U/mL 08/09/2023 [place] (H) 7:08 AM DIRECTOR OF STRATEGIC PROGRAMS Comment: This is a corrected result. Pre vious result was 2,419.5 U/mL on 08/08/2023 at 0955 DIRECTOR OF STRATEGIC PROGRAMS Specimen Anatomical Collection Method / Collection Time Recei maria isabel Time (Source) Location / Volume Laterality Blood Peripheral blood Venipuncture / 08/08/2023 8:01 2022 8:03 specimen / Unknown Unknown AM DIRECTOR OF STRATEGIC PROGRAMS AM DIRECTOR OF STRATEGIC PROGRAMS Narrative [place] - 08/09/2023 7:08 AM DIRECTOR OF STRATEGIC PROGRAMS Results greater than 9500 U/mL may not b e reliable due to matrix effect with extended dilution as it exceeds the manager demand' s recommended limit. Caution should be exercised when interpreting such values and done in conjunction with clinical context. This test is measured by electr ochemiluminescence immunoassay on Opal Yoselin immunoassay analyzers. Results obtained in different methods are not interchangeable. Jaylin Snell APRN LAB BLOOD ORDERABLES Performing Organization Address City/State/Z[place] [address], [facility] [address] (ABNORMAL) Urinalysis w/Microscopic if Indicated (08/08/2023 8:01 AM DIRECTOR OF STRATEGIC PROGRAMS)Only the most recent of3 resultswithin the time period is included. Patholo gist Method Time Signature Urine Appearance Clear Clear 08/08/2023 [place] 8:21 AM DIRECTOR OF STRATEGIC PROGRAMS Urine Color Yellow Colorless, 08/08/2023 [place] Straw, 8:21 AM DIRECTOR OF STRATEGIC PROGRAMS Light Yellow, Yellow, Dark Yellow, Straw-Yello w Urine Specific 1.015 1.003 - 08/08/2023 [place] 1.035 8:21 AM DIRECTOR OF STRATEGIC PROGRAMS Urine pH 5.5 5.0 - 9.0 08/08/2023 [place] 8:21 AM DIRECTOR OF STRATEGIC PROGRAMS Urine Glucose Negative Negative 08/08/2023 [place] mg/dL 8:21 AM DIRECTOR OF STRATEGIC PROGRAMS Urine Ketones Trace (A) Negative 08/08/2023 [place] mg/dL 8:21 AM DIRECTOR OF STRATEGIC PROGRAMS Urine Blood Negative Negative 08/08/2023 [place] 8:21 AM DIRECTOR OF STRATEGIC PROGRAMS Urine Protein 30 (A) Negative 08/08/2023 [place] mg/dL 8:21 AM DIRECTOR OF STRATEGIC PROGRAMS Urine Bilirubin Positive (A) Negative 08/08/2023 [facility] 8:21 AM DIRECTOR OF STRATEGIC PROGRAMS Urine Negative Negative 08/08/2023 [place] Urobilinogen 8:21 AM DIRECTOR OF STRATEGIC PROGRAMS Urine Nitrite Negative Negative 08/08/2023 [place] 8:21 AM DIRECTOR OF STRATEGIC PROGRAMS Urine Leukocyte Negative Negative 08/08/2023 [place] Esterase 8:21 AM DIRECTOR OF STRATEGIC PROGRAMS Specimen Anatomical Collection Method Collection Time Receive d Time (Source) Location / / Volume Laterality Urine Voided urine Non-blood 08/08/2023 8:01 AM 8:03 specimen / Unknown Collection / DIRECTOR OF STRATEGIC PROGRAMS AM DIRECTOR OF STRATEGIC PROGRAMS Unknown Narrative [place] - 08/08/2023 8:21 AM DIRECTOR OF STRATEGIC PROGRAMS Some reporting parameters within the Uri nalysis test have changed due to the implementation of new instrumentation in the Main [place], allowing greater sensitivity of measurement. Urinalysis r esults reported by the [facility] Centers using existing instrumentation, as well as Urinalysis testing performed manually or by back-up methodology at the [facility], will remain relatively unchanged. New reporting parameters and units will now be reported for all campuses. Jaylin Snell FOUNDRY OPERATOR URINE ORDERABLES Performing Organization Address City/State/ZIP Code Phon e Number [facility] [place] [address] [place] [address] [facility], [facility] [address] (ABNORMAL) Prothrombin Time with INR (08/08/2023 8:01 AM DIRECTOR OF STRATEGIC PROGRAMS)Only the most recent of6 resultswithin the time period is included. [facility] gist Method Time Signature Prothrombin Time 19.1 (H) 11.9 - 08/08/2023 [place] 14.5 8:40 AM DIRECTOR OF STRATEGIC PROGRAMS second(s) International 1.57 (H) 0.87 - 08/08/2023 [place] Normalization 1.12 8:40 AM DIRECTOR OF STRATEGIC PROGRAMS Ratio Specimen Anatomical Collection Method / Collection Time Recei maria isabel Time (Source) Location / Volume Laterality Blood Peripheral blood Venipuncture / 08/08/2023 8:01 2022 8:03 specimen / Unknown Unknown AM DIRECTOR OF STRATEGIC PROGRAMS AM DIRECTOR OF STRATEGIC PROGRAMS Jaylin Snell APRN LAB BLOOD ORDERABLES Performing Organization Address City/[facility]/ZIP Code Phon e Number [place], [place] [address] [place] [address], [facility] [address] Uric Acid (08/08/2023 8:01 AM DIRECTOR OF STRATEGIC PROGRAMS)Only the most recent of5 resultswithin the time period is included. P athologist Signature Uric Acid 3.4 3.4 - 7.0 08/08/2023 8:46 [place] mg/dL AM DIRECTOR OF STRATEGIC PROGRAMS Specimen Anatomical Collection Method / Collection Time Recei maria isabel Time (Source) Location / Volume Laterality Blood Peripheral blood Venipuncture / 08/08/2023 8:01 2022 8:03 specimen / Unknown Unknown AM DIRECTOR OF STRATEGIC PROGRAMS AM DIRECTOR OF STRATEGIC PROGRAMS Jaylin Snell APRN LAB BLOOD ORDERABLES Performing Organization Address City/[facility]/ZIP [facility] Phon e Number [place], [place] [address] [place] [address], [facility] [address] TSH (08/08/2023 8:01 AM DIRECTOR OF STRATEGIC PROGRAMS)Only the most recent of3 resultswithin the time period is included. athologist Signature Thyroid 3.19 0.27 - 08/08/2023 [place] Stimulating 4.20 8:46 AM DIRECTOR OF STRATEGIC PROGRAMS Hormone mcunit/mL Specimen Anatomical Collection Method / Collection Time Recei maria isabel Time (Source) Location / Volume Laterality Blood Peripheral blood Venipuncture / 08/08/2023 8:01 2022 8:03 specimen / Unknown Unknown AM DIRECTOR OF STRATEGIC PROGRAMS AM DIRECTOR OF STRATEGIC PROGRAMS Jaylin Snell APRN LAB BLOOD ORDERABLES Performing Organization Address City/[facility] Phon e Number [place], [place] [address] [place] [address], [facility] [address] Phosphorus Level (08/08/2023 8:01 AM DIRECTOR OF STRATEGIC PROGRAMS)Only the most recent of8 resultswithin the time period is included. athologist Signature Phosphorus Level 3.5 2.5 - 4.5 08/08/2023 [place] mg/dL 8:46 AM DIRECTOR OF STRATEGIC PROGRAMS Specimen Anatomical Collection Method / Collection Time Recei maria isabel Time (Source) Location / Volume Laterality Blood Peripheral blood Venipuncture / 08/08/2023 8:01 2022 8:03 specimen / Unknown Unknown AM DIRECTOR OF STRATEGIC PROGRAMS AM DIRECTOR OF STRATEGIC PROGRAMS Jaylin Snell APRN LAB BLOOD ORDERABLES Performing Organization Address City/[facility]/[place] [address] Magnesium Level (08/08/2023 8:01 AM DIRECTOR OF STRATEGIC PROGRAMS)Only the most recent of9 resultswithin the time period is included. athologist Signature Magnesium Level 1.8 1.6 - 2.6 08/08/2023 [place] mg/dL 8:46 AM DIRECTOR OF STRATEGIC PROGRAMS Specimen Anatomical Collection Method / Collection Time Recei maria isabel Time (Source) Location / Volume Laterality Blood Peripheral blood Venipuncture / 08/08/2023 8:01 2022 8:03 specimen / Unknown Unknown AM DIRECTOR OF STRATEGIC PROGRAMS AM DIRECTOR OF STRATEGIC PROGRAMS Jaylin Snell APRN LAB BLOOD ORDERABLES Performing Organization Address City/[facility] [place], [place] [id number] [place] [address] (ABNORMAL) Lipase Level (08/08/2023 8:01 AM DIRECTOR OF STRATEGIC PROGRAMS)Only the most recent of6 results within the time period is included. athologist Signature Lipase Level 7 (L) 13 - 60 U/L 08/08/2023 [place] 8:46 AM DIRECTOR OF STRATEGIC PROGRAMS Specimen Anatomical Collection Method / Collection Time Recei maria isabel Time (Source) Location / Volume Laterality Blood Peripheral blood Venipuncture / 08/08/2023 8:01 2022 8:03 specimen / Unknown Unknown AM DIRECTOR OF STRATEGIC PROGRAMS AM DIRECTOR OF STRATEGIC PROGRAMS Narrative [place] - 08/08/2023 8:46 AM DIRECTOR OF STRATEGIC PROGRAMS Reference range established based on carey population [facility] BLOOD ORDERABLES Performing Organization Address [facility]/ZIP Code Phon e Number [place], [place] [id number] [place] [address], [place] [address] LDH (08/08/2023 8:01 AM DIRECTOR OF STRATEGIC PROGRAMS)Only the most recent of6 resultswithin the time period is included. P athologist Signature LDH 139 135 - 225 08/08/2023 8:36 [place] U/L AM DIRECTOR OF STRATEGIC PROGRAMS Specimen Anatomical Collection Method / Collection Time Recei maria isabel Time (Source) Location / Volume Laterality Blood Peripheral blood Venipuncture / 08/08/2023 8:01 2022 8:03 specimen / Unknown Unknown AM DIRECTOR OF STRATEGIC PROGRAMS AM DIRECTOR OF STRATEGIC PROGRAMS [facility] - 08/08/2023 8:36 AM DIRECTOR OF STRATEGIC PROGRAMS Results greater than 1651 U/L may not be reliable due to matrix effect with extended dilution as it exceeds the manager demand' s recommended limit. Caution should be exercised when interpreting such values and done in conjunction with clinical context. [facility] LAB BLOOD ORDERABLES Performing Organization Address [facility]/ZIP [place] [address], [facility] [address] (ABNORMAL) CEA (08/08/2023 8:01 AM DIRECTOR OF STRATEGIC PROGRAMS)Only the most recent of4 resultswithin the time period is included. Patholo gist Method Time Signature Carcinoembryonic 27.7 (H) <=3.8 08/08/2023 [place] Antigen ng/mL 8:46 AM DIRECTOR OF STRATEGIC PROGRAMS Specimen Anatomical Collection Method / Collection Time Recei maria isabel Time (Source) Location / Volume Laterality Blood Peripheral blood Venipuncture / 08/08/2023 8:01 2022 8:03 specimen / Unknown Unknown AM DIRECTOR OF STRATEGIC PROGRAMS AM DIRECTOR OF STRATEGIC PROGRAMS [facility] - 08/08/2023 8:46 AM DIRECTOR OF STRATEGIC PROGRAMS Reference Ranges (age 20-69 years): Non-smoker: 0.0 - 3.8 ng/mL Smoker: 0.0 - 5.5 ng/mL This test is measured by electrochemilum inescence immunoassay on Opal Yoselin immunoassay analyzers. Results obtained in different methods are not interchangeable. Jaylin Snell APRN LAB BLOOD ORDERABLES Performing Organization Address City/State/ZIP Code Phon e Number [place], [place] [phone] [place] [address], [facility] [address] (ABNORMAL) Amylase Level (08/08/2023 8:01 AM DIRECTOR OF STRATEGIC PROGRAMS)Only the most recent of6 resultswithin the time period is included. P athologist Signature Amylase Level 18 (L) 28 - 100 08/08/2023 [place] U/L 8:46 AM DIRECTOR OF STRATEGIC PROGRAMS Specimen Anatomical Collection Method / Collection Time Recei maria isabel Time (Source) Location / Volume Laterality Blood Peripheral blood Venipuncture / 08/08/2023 8:01 2022 8:03 specimen / Unknown Unknown AM DIRECTOR OF STRATEGIC PROGRAMS AM DIRECTOR OF STRATEGIC PROGRAMS Jaylin Channing CARDOZO LAB BLOOD ORDERABLES Performing Organization Address City/[facility]/ZIP [place] [address], [facility] [address] Type and Screen (08/07/2023 1:44 PM DIRECTOR OF STRATEGIC PROGRAMS) Patholo gist Method Time Signature ABORh O POS 08/07/2023 [place] MD [place] 1:36 PM DIRECTOR OF STRATEGIC PROGRAMS [facility] ABSC Negative 08/07/2023 [place] MD [place] 1:36 PM DIRECTOR OF STRATEGIC PROGRAMS [facility] Clot 08/10/2023 08/07/2023 [place] MD [place] Expiration 23:59 1:36 PM DIRECTOR OF STRATEGIC PROGRAMS [facility] Historical No History 08/07/2023 [place] MD [place] Record Check 1:36 PM DIRECTOR OF STRATEGIC PROGRAMS [facility] Specimen Anatomical Collection Method / Collection Time Recei maria isabel Time (Source) Location / Volume Laterality Blood Peripheral blood Venipuncture / 08/07/2023 1:44 2022 1:44 specimen / Unknown Unknown PM DIRECTOR OF STRATEGIC PROGRAMS PM DIRECTOR OF STRATEGIC PROGRAMS Jaylin Snell APRN BLOOD BANK TEST ORDERABLES Performing Organization Address City/State/ZIP Code Phon e Number [place] MD [place] [facility] [place] [address] CENTER - TRANSFUSION [facility] SERVICES Transfusion Services [address] [phone] (ABNORMAL) POC Glucose Screen - Fingerstick (07/14/2023 9:11 AM CDT)Only the most recent of7 resultswithin the time period is included. Analysis Performed At [facility] Signature Glucose Screen 114 (H) 70 - 99 07/14/2023 [place] mg/dL 9:14 AM [facility] POC Sample Capillary 07/14/2023 [place] Type 9:14 AM [facility] Specimen Anatomical Collection Method Collection Time Receive d Time (Source) Location / / Volume Laterality Blood 07/14/2023 9:11 AM 9:14 CDT AM CDT Narrative [facility] - 9:14 AM CDT Capillary blood samples, e.g. [...] POCT ORDERABLES - DEVICE Performing Organization Address City/[facility] Phon e Number [facility] CANCER Unless otherwise noted, [place] [address] [place] all lab tests performed by: Division of Pathology and Laboratory Medicine [address] [place] Urine Culture (07/13/2023 7:33 PM CDT) Analysis Performed At [facility] Signature Urine Culture No Growth. 07/15/2023 [place] 10:47 AM [facility] Specimen Anatomical Collection Method Collection Time Receive d Time (Source) Location / / Volume Laterality Urine (Urine Non-blood 07/13/2023 7:33 PM 3 9:47 Clean Catch) Collection / CDT PM CDT Unknown Mckayla Infante APRN MICROBIOLOGY - GENERAL ORDER ANUP Performing Organization Address City/State/ZIP Code Phon e Number [facility] CANCER Unless otherwise noted, [place] [address] CENTER all lab tests performed by: Division of Pathology and Laboratory Medicine [address] [place] Echocardiogram 2D Limited - Follow Up (07/13/2023 [...] volumes were not performed in this st udy. Cardiac Mechanics/Speckle Tracking Imagi ng: Normal global [...] imaginD volumes were not performed in this [facility]. Cardiac Mechanics/Speckle Tracking Imagi ng: Normal global [...] EDV(MOD-bp): 109.5 ml EF(MOD-A2C): 57.1 % ESV(MOD-bp): 47 .5 ml EF(MOD-bp): 56.6 % LAV(MOD-A2C): 34.3 ml EDV (MOD-bp) In dex: 61.6 ml/m2 LAV(MOD-A4C): 24.1 ml LAV(MOD-bp): 32.1 ml LAV(MOD-bp) Indexed: 18.0 ml/m2 ESV (MOD-bp) Index: 26.7 ml/m2 RWT: 0.41 cm TAPSE (>1.6): 2.2 cm Doppler Measurements Ao V2 max: 110.9 cm/sec LV V1 max P .1 mmHg Ao max P.9 mmHg LV V1 mean P.8 mmHg Ao V2 mean: 80.4 cm/sec LV V1 max: 1 00.7 cm/sec Ao mean P.8 mmHg LV V1 mean: 60 .7 cm/sec Ao V2 VTI: 17.5 cm LV V1 VTI: 14.3 c m LEATHA(I,D): 2.9 cm2 LEATHA(V,D): 3.2 cm2 SV(LVOT): 50.5 ml PA V2 max: 68.7 cm /sec PA max P.9 mmHg PA V2 mean: 51.9 cm/sec PA mean P.2 mmHg PA V2 VTI: 11.3 cm TR max selene: 216.7 cm/sec RAP systol e: 3.0 mmHg TR max P.8 mmHg RVSP(TR): 21.8 mmHg LEATHA Index (I,D): 1.6 LEATHA Index (V,D) : 1.8 Dimensionless Index: 0.91 Ganga Doyle MD CV ECHO ORDERABLES Performing Organization Address City/State/ZIP Code Phon e Number ISCV (ABNORMAL) Procalcitonin (07/13/2023 2:23 PM CDT) athologist Signature Procalcitonin 0.32 (H) <=0.08 07/13/2023 MT ng/mL 3:08 PM CDT [facility] Specimen Anatomical Collection Method / Collection Time Recei maria isabel Time (Source) Location / Volume Laterality Blood Peripheral blood Venipuncture / 07/13/2023 2:23 2022 2:26 specimen / Unknown Unknown PM CDT PM CDT Narrative [facility] - 3:08 PM CDT Procalcitonin > 2.00 [...] with extended dilution as it exceeds the manager demand's recommended limit. Caution should be exercised when interpreting such values and done in conjunction with clin ical context. Mckayla Infante FOUNDRY OPERATOR LAB BLOOD ORDERABLES Performing Organization Address City/State/ZIP Code Phon e Number [facility] CANCER Unless otherwise noted, [place] [address] [place] all lab tests performed by: Division of Pathology and Laboratory Medicine [facility] Jumanajavi Cook Lactic Acid, Venous (07/13/2023 2:23 PM CDT) athologist Signature Venous Lactate 0.6 0.5 - 1.6 07/13/2023 MT mmol/L 2:28 PM T [facility] Oxygen FLOW 0.00 % 07/13/2023 [place] Rate/ FiO2 2:28 PM CDT [facility] O2 Therapy Room air 07/13/2023 MT 2:28 PM T [facility] Specimen Anatomical Collection Method / Collection Time Recei maria isabel Time (Source) Location / Volume Laterality Blood Peripheral blood Venipuncture / 07/13/2023 2:23 2022 2:26 specimen / Unknown Unknown PM CDT PM CDT Mckayla Infante FOUNDRY OPERATOR LAB BLOOD ORDERABLES Performing Organization Address City/State/ZIP Code Phon e Number [facility] CANCER Unless otherwise noted, [place] [address] CENTER all lab tests performed by: Division of Pathology and Laboratory Medicine [address] [facility] CT Chest Pulmonary Embolism with Contrast (07/13/2023 [...] abdominal CT. ACTIONABLE ITEMS/RECOMMENDATIONS: None. Mckayla Infante FOUNDRY OPERATOR IMG CT ORDERABLES OSI CT Chest Abdomen [...] in anterior diaphragmatic lymph nodes with a containers sales representative node at the right cardiophrenic angle on series 301 image 43 measuring 0.8 cm and previously measuring 1.1 cm. ABDOMEN AND PELVIS: Hepatobiliary: Mostly stable bilobar hyp odense lesions which may be from a combination of metastatic disease and abscesses. A containers sales representative lesion in the right liver [...] bowel mesenteric adenopathy is stable with a containers sales representative jejunal small bowel mesenteric node [...] in anterior diaphragmatic lymph nodes with a containers sales representative node at the right cardiophrenic angle on series 301 image 43 measuring 0.8 cm and previously measuring 1.1 cm. ABDOMEN AND PELVIS: Hepatobiliary: Mostly stable bilobar hyp odense lesions which may be from a combination of metastatic disease and abscesses. A containers sales representative lesion in the right liver [...] bowel mesenteric adenopathy is stable with a containers sales representative jejunal small bowel mesenteric node [...] CT. ACTIONABLE ITEMS/RECOMMENDATIONS: See Im pression Mckayla P Thoppil FOUNDRY OPERATOR IMG OUTSIDE IMAGE ORDERABLES OSI Chest (07/12/2023 2:32 PM CDT) Specimen (Source) Anatomical Location Collection Method / Collectio n Time Received Time / Laterality Volume Narrative Systemgenerated, Documentation - 023 2:33 PM CDT Study acquired at another institution. For comparison only. No MD Jaswinder originated interpretation requested or a vailable. Mckayla P Thoppil FOUNDRY OPERATOR IMG OUTSIDE IMAGE ORDERABLES XR Abdomen AP [...] osseous lesions. IMPRESSION: Nonspecific bowel gas pattern Marisuz Campbell MD IMG DIAGNOSTIC IMAGING ORDER ANUP Blood Culture (07/12/2023 12:21 PM CDT) Analysis Performed At Patho logist Time Signature Blood Culture No Growth. 07/17/2023 [place] 1:01 PM T [facility] Specimen Anatomical Collection Method / Collection Time Recei maria isabel Time (Source) Location / Volume Laterality Blood Venipuncture / 07/12/2023 12:21 3 (Venipuncture) Unknown PM CDT 12:28 PM CDT Mariusz Campbell MD MICROBIOLOGY - GENERAL ORDER ANUP Performing Organization Address City/State/ZIP Code Phon e Number [facility] CANCER Unless otherwise noted, [place] [address] [place] all lab tests performed by: Division of Pathology and Laboratory Medicine [address] [place] [address] (07/12/2023 12:21 PM CDT) P athologist Signature pH Venous 7.39 7.32 - 07/12/2023 [place] MD [facility] 7.43 12:30 PM T [facility] P CO2 Venous 44.0 41.0 - 07/12/2023 [facility] MD [facility] 51.0 mmHg 12:30 PM T [facility] CENTER P O2 Venous 49 mmHg 07/12/2023 [facility] 12:30 PM T [facility] Bicarbonate 27 21 - 28 07/12/2023 [facility] Venous mmol/L 12:30 PM T [facility] Base Excess 1 -2 - 3 07/12/2023 [facility] MD [facility] Venous mmol/L 12:30 PM CDT [facility] Oxygen 83 % 07/12/2023 [facility] Saturation 12:30 PM CDT [facility] CENTER Venous Oxygen FLOW 07/12/2023 [facility] MD [facility] Rate/ FiO2 12:30 PM CDT [facility] CENTER O2 Therapy 07/12/2023 [facility] MD [facility] 12:30 PM CDT [facility] Specimen Anatomical Collection Method / Collection Time Recei maria isabel Time (Source) Location / Volume Laterality Blood Peripheral blood Venipuncture / 07/12/2023 12:21 07/12 specimen / Unknown Unknown PM CDT 12:28 PM CDT Mariusz Campbell MD LAB BLOOD ORDERABLES Performing Organization Address City/State/ZIP Code Phon e Number [facility] CANCER Unless otherwise noted, [place] [address] [place] all lab tests performed by: Division of Pathology and Laboratory Medicine [address] [place] [address] X-ray Chest 1 View (07/12/2023 11:55 AM [...] chest. ACTIONABLE ITEMS/RECOMMENDATIONS: None. Nataliya Pascual MD IMG DIAGNOSTIC IMAGING ORDER ANUP (ABNORMAL) Cardiac Panel (07/12/2023 11:25 AM CDT) athologist Signature Creatine 28 (L) 39 - 308 07/12/2023 [place] MD [facility] Kinase U/L 2:58 PM [facility] CKMB <2.0 <=10.4 07/12/2023 [place] MD [facility] ng/mL 2:58 PM T [facility] Troponin T <6 <=19 ng/L 07/12/2023 [facility] MD [facility] 2:58 PM [facility] Comment: < 19 ng/L Suggest retest at [...] Organization Address City/State/ZIP Code Phon e Number [facility] Unless otherwise noted, [place] [address] [place] all lab tests performed by: Division of Pathology and Laboratory Medicine [address] [place] [address] [place] NT-Pro BNP (In-House) (07/12/2023 11:25 AM CDT) [facility] NT-ProBNP <36 <=125 pg/mL 07/12/2023 [facility] 12:35 PM CDT CANCER CENTER Specimen Anatomical Collection Method / Collection Time Recei maria isabel Time (Source) Location / Volume Laterality Blood Peripheral blood Venipuncture / 07/12/2023 11:25 07/12 specimen / Unknown Unknown AM CDT 11:39 AM CDT Nataliya Pascual MD LAB BLOOD ORDERABLES Performing Organization Address City/[facility]/ZIP Code Phon e Number [facility] CANCER Unless otherwise noted, [place] [address] [place] all lab tests performed by: Division of Pathology and Laboratory Medicine [address] EKG, 12-Lead (07/12/2023)Only the most recent of2 resultswithin the time period is included. Specimen (Source) Anatomical Location Collection Method / Collectio n Time Received Time / Laterality Volume Narrative This result has an attachment that is no t available. Aamir BARRERA ECG ORDERABLES Performing Organization Address [facility] Phon e Number JACKELINE IECG .Serum Creatinine (07/06/2023 11:27 AM CDT)Only the most recent of4 results within the time period is included. [facility] Creatinine 0.70 0.67 - 1.17 [facility] mg/dL DIAGNOSTIC CENTER Specimen Anatomical Collection Method Collection Time Receive d Time (Source) Location / / Volume Laterality Blood 07/06/2023 11:27 07/06/2023 AM CDT 11:46 AM CDT Charlie Ulloa MD LAB BLOOD ORDERABLES Performing Organization Address City/[facility] Phon e Number [facility] DIAGNOSTIC Unless otherwise noted, [place] [address] [place] all lab tests performed by: Division of Pathology and Laboratory Medicine [address] Glomerular Filtration Rate (07/06/2023 11:27 AM CDT)Only the most recent of4 resultswithin the time period is included. [facility] eGFR 109 >=60 [facility] mL/min/1.73 DIAGNOSTIC sq. m CENTER Comment: The [...] Organization Address City/State/ZIP Code Phon e Number [place] [facility] Unless otherwise noted, [address] all lab tests performed by: Division of Pathology and Laboratory Medicine [facility] Fractionated Bilirubin (07/06/2023 11:27 AM CDT)Only the most recent of4 results within the time period is included. athologist Signature Bili Total 0.6 <=1.2 mg/dL [facility] DIAGNOSTIC CENTER Comment: Indocyanine Green (ICG) may cause falsel y elevated bilirubin results. Total and direct bilirubin must not be measured from samples containing indocyanine green. False elevation of total bilirubin can b e seen in patients with IgG concentrations above 28 g/L. Bili Direct 0.2 <=0.3 mg/dL [facility] D [facility]AGNOSTIC CENTER Comment: Indocyanine Green (ICG) may cau se falsely elevated bilirubin results. Total and direct bilirubin must not be measure d from samples containing indocyanine green. Bili Indirect 0.4 0.0 - 0.9 mg/dL MT MD CASAS [facility] DIAGNOSTIC CENTER Specimen Anatomical Collection Method Collection Time Receive d Time (Source) Location / / Volume Laterality Blood 07/06/2023 11:27 07/06/2023 AM CDT 11:46 AM CDT Charlie Ulloa MD LAB BLOOD ORDERABLES Performing Organization Address City/State/ZIP Code Phon e Number [facility] DIAGNOSTIC Unless otherwise noted, [place] [phone] [place] all lab tests performed by: Division of Pathology and Laboratory Medicine [address] [place] [address] [place] (ABNORMAL) Differential (07/06/2023 11:27 AM CDT)Only the most recent of4 resultswithin the time period is included. athologist Signature Neutrophil % 80.3 (H) 43.2 - [facility] 72.7 % DIAGNOSTIC CENTER Lymphocyte % 10.6 (L) 16.8 - [facility] 46.2 % DIAGNOSTIC CENTER Monocyte % 8.3 5.1 - 12.5 [facility] % DIAGNOSTIC CENTER Eosinophil % 0.2 (L) 0.4 - 6.3 [facility] % DIAGNOSTIC CENTER Basophil % 0.3 0.2 - 1.4 [facility] % DIAGNOSTIC CENTER IGRE % 0.3 0.1 - 1.5 [facility] % DIAGNOSTIC CENTER Comment: IGRE % count includes Metamyelo cytes, Myelocytes, and Promyelocytes. Neutrophil Abs 7.85 (H) 1.95 - 7.25 K/uL MT MD [facility] Lymphocyte Abs 1.04 1.01 - 3.24 K/uL MT MD VICKI GOLD [facility] Monocyte Abs 0.81 0.24 - 0.85 K/uL MT [facility] Eosinophil Abs 0.02 0.02 - 0.50 K/uL MT MD [facility] Basophil Abs 0.03 0.02 - 0.09 K/uL MT [facility] IG Abs 0.03 0.01 - 0.12 K/uL MT MD RUBY Lara [facility] Specimen Anatomical Collection Method Collection Time Receive d Time (Source) Location / / Volume Laterality Blood 07/06/2023 11:27 07/06/2023 AM CDT 11:33 AM CDT Charlie Ulloa MD LAB BLOOD ORDERABLES Performing Organization Address City/State/ZIP Code Phon e Number [facility] DIAGNOSTIC Unless otherwise noted, [place] [address] [place] all lab tests performed by: Division of Pathology and Laboratory Medicine [address] [place], [place] [address]d BUN (07/06/2023 11:27 AM CDT)Only the most recent of4 resultswithin the time period is included. P athologist Signature BUN 11 6 - 23 [facility] mg/dL DIAGNOSTIC CENTER Specimen Anatomical Collection Method Collection Time Receive d Time (Source) Location / / Volume Laterality Blood 07/06/2023 11:27 07/06/2023 AM CDT 11:46 AM CDT Charlie Ulloa MD LAB BLOOD ORDERABLES Performing Organization Address City/State/ZIP [facility] Phon e Number [facility] DIAGNOSTIC Unless otherwise noted, [address] all lab tests performed by: Division of Pathology and Laboratory Medicine [address] [place] [address] ALT (07/06/2023 11:27 AM CDT)Only the most recent of4 resultswithin the time period is included. athologist Signature ALT 26 <=41 U/L [facility] Specimen Anatomical Collection Method Collection Time Receive d Time (Source) Location / / Volume Laterality Blood 07/06/2023 11:27 07/06/2023 AM CDT 11:46 AM CDT Charlie Ulloa MD LAB BLOOD ORDERABLES Performing Organization Address City/[facility]/ZIP Code Phon e Number [facility] DIAGNOSTIC Unless otherwise noted, [address] all lab tests performed by: Division of Pathology and Laboratory Medicine [address] [place] [address] Aspartate Aminotransferase (07/06/2023 11:27 AM CDT)Only the most recent of4 resultswithin the time period is included. athologist Signature AST 23 <=40 U/L [facility] Specimen Anatomical Collection Method Collection Time Receive d Time (Source) Location / / Volume Laterality Blood 07/06/2023 11:27 07/06/2023 AM CDT 11:46 AM CDT Charlie Ulloa MD LAB BLOOD ORDERABLES Performing Organization Address City/[facility]/ZIP [facility] Phon e Number [facility] DIAGNOSTIC Unless otherwise noted, [address] all lab tests performed by: Division of Pathology and Laboratory Medicine [address] [place] [address] Total Protein (07/06/2023 11:27 AM CDT)Only the most recent of4 resultswithin the time period is included. athologist [facility] Total Protein 7.6 6.4 - 8.3 [facility] g/dL DIAGNOSTIC CENTER Specimen Anatomical Collection Method Collection Time Receive d Time (Source) Location / / Volume Laterality Blood 07/06/2023 11:27 07/06/2023 AM CDT 11:46 AM CDT Charlie Ulloa MD LAB BLOOD ORDERABLES Performing Organization Address City/[facility] Phon e Number [facility] DIAGNOSTIC Unless otherwise noted, [address] all lab tests performed by: Division of Pathology and Laboratory Medicine [address] [facility] (ABNORMAL) Alkaline Phosphatase (07/06/2023 11:27 AM CDT)Only the most recent of 4 resultswithin the time period is included. athologist [facility] Alk Phos 161 (H) 40 - 129 [facility] U/L DIAGNOSTIC CENTER Specimen Anatomical Collection Method Collection Time Receive d Time (Source) Location / / Volume Laterality Blood 07/06/2023 11:27 07/06/2023 AM CDT 11:46 AM CDT Charlie Ulloa MD LAB BLOOD ORDERABLES Performing Organization Address City/[facility] Phon e Number [facility] DIAGNOSTIC Unless otherwise noted, [address] all lab tests performed by: Division of Pathology and Laboratory Medicine [address] [place] (ABNORMAL) Glucose Level (07/06/2023 11:27 AM CDT)Only the most recent of4 resultswithin the time period is included. athologist Signature Glucose Level 131 (H) 70 - 99 [facility] mg/dL DIAGNOSTIC CENTER Comment: Effective 04/13/16, the glucose reference intervals have been updated based on [place] [employer] guidelines (Standards of Medical Care [...] MD LAB BLOOD ORDERABLES Performing Organization Address City/[facility]/ZIP Code Phon e Number [facility] DIAGNOSTIC Unless otherwise noted, [address] all lab tests performed by: Division of Pathology and Laboratory Medicine [address] [place] Calcium Level (07/06/2023 11:27 AM CDT)Only the most recent of4 resultswithin the time period is included. athologist Signature Calcium Lvl 9.7 8.4 - 10.2 [facility] mg/dL [facility] Specimen Anatomical Collection Method Collection Time Receive d Time (Source) Location / / Volume Laterality Blood 07/06/2023 11:27 07/06/2023 AM CDT 11:46 AM CDT Charlie Ulloa MD LAB BLOOD ORDERABLES Performing Organization Address [facility] Phon e Number [facility] DIAGNOSTIC Unless otherwise noted, [address] all lab tests performed by: Division of Pathology and Laboratory Medicine [address] Albumin Level (07/06/2023 11:27 AM CDT)Only the most recent of4 resultswithin the time period is included. athologist Signature Albumin Lvl 3.7 3.5 - 5.2 [facility] gm/dL DIAGNOSTIC CENTER Specimen Anatomical Collection Method Collection Time Receive d Time (Source) Location / / Volume Laterality Blood 07/06/2023 11:27 07/06/2023 AM CDT 11:46 AM CDT Charlie Ulloa MD LAB BLOOD ORDERABLES Performing Organization Address City/[facility] Phon e Number [facility] DIAGNOSTIC Unless otherwise noted, [address] all lab tests performed by: Division of Pathology and Laboratory Medicine [address] [place] (ABNORMAL) Electrolyte Panel (07/06/2023 11:27 AM CDT)Only the most recent of4 resultswithin the time period is included. athologist Signature Sodium Lvl 133 (L) 136 - 145 [facility] mEq/L DIAGNOSTIC CENTER Potassium Lvl 5.4 (H) 3.5 - 5.1 [facility] mEq/L DIAGNOSTIC CENTER Chloride 95 (L) 98 - 107 [facility] mEq/L DIAGNOSTIC CENTER CO2 34 (H) 22 - 29 [facility] mEq/L DIAGNOSTIC CENTER Anion Gap 4 4 - 14 [facility] mEq/L DIAGNOSTIC CENTER Specimen Anatomical Collection Method Collection Time Receive d Time (Source) Location / / Volume Laterality Blood 07/06/2023 11:27 07/06/2023 AM CDT 11:46 AM CDT Charlie Ulloa MD LAB BLOOD ORDERABLES Performing Organization Address City/State/ZIP Code Phon e Number [facility] DIAGNOSTIC Unless otherwise noted, [place] [address] CENTER all lab tests performed by: Division of Pathology and Laboratory Medicine [facility] SERVICES (07/05/2023 4:07 PM CDT) Anatomical Region Laterality Modality Other Specimen (Source) Anatomical Collection Method Collection Time Re ceived Time Location / / Volume Laterality 07/05/2023 4:09 PM CDT Impressions 07/05/2023 4:09 PM CDT Tumor metrics have been completed. I personally reviewed these images and agree with the tumor metrics. Narrative 07/05/2023 4:09 PM CDT FULL RESULT: Examination: [facility] on 07/05/2023 16:09 PM Indication:Adenocarcinoma, NOS of pancre as, NOS Findings: Tumor metrics have been comple bell. Procedure Note Annabella Orlando MD - 07/05/2023Forma tting of this note might be different from the original. FULL RESULT: Examination: [facility] on 07/05/2023 16:09 PM Indication:Adenocarcinoma, NOS of pancre as, NOS Findings: Tumor metrics have been comple bell. IMPRESSION: Tumor metrics have been completed. I per sonally reviewed these images and agree with the tumor metrics. Jaylin Snell APRN IMG [facility] ORDERABLES CT Chest Abdomen Pelvis with and [...] No suspicious osseo us lesions. Procedure Note Chris, Kin, MD - 07/05/2023Formatting o f this note [...] Vessels: Aorta and IVC are normal in advide iber. Reproductive Organs: Prostate gland is e [...] A max selene: 63.7 cm/sec MV max PG : 8.8 mmHg MV E/A: 0.82 MV V2 mean: 83.1 cm/sec MV mean P.2 mmHg MV V2 VTI: 29.0 cm MVA(VTI): 2.7 cm2 MV dec time: 0.16 sec Ao V2 max: 128 .3 cm/sec Ao max P.6 mmHg Ao V2 mean: 79.9 cm/sec Ao mean P.0 mmHg Ao V2 VTI: 19.4 cm LEATHA(I,D): 4.1 cm2 LEATHA(V,D): 3.9 cm2 AI dec slope: 305.7 cm/sec2 LV V1 ma x P.5 mmHg LV V1 mean P.8 mmHg LV V1 max: 106.4 cm/sec LV V1 mean: 60.7 cm/sec LV V1 VTI: 16.9 cm SV(LVOT): 79.8 ml TR max selene: 223.2 c m/sec TR max P.9 mmHg LEATHA Index (I,D): 2.3 LEATHA Index (V,D ): 2.2 Dimensionless Index: 0.83 Jaylin Snell APRN [...] purpose. For additional information please refer to http://education.[employer]/fa q/XTC013 (This link is being provided for informa tional/ educational purposes only.) The performance of this assay has not be en clinically validated in patients less than 2 years old. Lab test performed by: Lab Mnemonic: [facility] [address] [id number] GEOFF LARRY MD,PHD. Specimen Anatomical Collection Method Collection Time Receive d Time (Source) Location / / Volume Laterality Blood 07/04/2023 8:30 AM 9:08 CDT AM CDT Jaylin Snell APRN LAB BLOOD ORDERABLES Performing Organization Address City/State/ZIP Code Phon e Number [facility] HBV DNA Quant (07/04/2023 8:30 AM CDT) Patholo gist Method Time Signature HBV DNA Undetected Undetected MT MD [place] IU/mL [facility] Comment: Result in log IU/mL is Undetected. ADDITIONAL INFORMATIO N The quantification range of this assay i s 10 to 1,000,000,000 IU/mL (1.00 log to 9.00 lo g IU/mL). Testing was performed using the yoselin HBV test ( [employer] with the yoselin 6800 Syste m. Test Performed by: [facility] [address] [place] [id number] Fixed Route Operator: Martin Saxena M.D. Ph. D.; CLIA# [id number] Specimen Anatomical Collection Method Collection Time Receive d Time (Source) Location / / Volume Laterality Blood 07/04/2023 8:30 AM 9:08 CDT AM CDT Jaylin Snell APRN LAB BLOOD ORDERABLES Performing Organization Address City/[facility] Phon e Number [facility] Unless otherwise noted, [address] all lab tests performed by: Division of Pathology and Laboratory Medicine [address] [place] [address] Hepatitis C Virus Antibody (07/04/2023 8:30 AM CDT)Only the most recent of2 resultswithin the time period is included. [facility] Method [place] Signature HCVAb. Non Reactive Non Reactive [facility] Comment: Antibody detection in the [...] CARDOZO LAB BLOOD ORDERABLES Performing Organization Address City/[facility]/ZIP Code Phon e Number [facility] Unless otherwise noted, [address] all lab tests performed by: Division of Pathology and Laboratory Medicine [address] [place] [address] Hepatitis B Surface Ag (07/04/2023 8:30 AM CDT)Only the most recent of2 results within the time period is included. [facility] Method [place] Signature HBsAg. Non Reactive Non Reactive [facility] Specimen Anatomical Collection Method Collection Time Receive d Time (Source) Location / / Volume Laterality Blood 07/04/2023 8:30 AM 10/17/202 3 8:53 CDT AM CDT Jaylin Channing CARDOZO LAB BLOOD ORDERABLES Performing Organization Address City/[facility]/ZIP [facility] Phon e Number [facility] Unless otherwise noted, [address] all lab tests performed by: Division of Pathology and Laboratory Medicine [address] [place] [address] EKG, 12-Lead (Scheduled) (07/04/2023) Specimen (Source) Anatomical Location Collection Method / Collectio n Time Received Time / Laterality Volume Narrative This result has an attachment that is no t available. Jaylin Snell APRN ECG ORDERABLES Performing Organization Address [facility] Phon e Number JACKELINE GUADALUPE MD NGS Blood Control (05/17/2023 3:16 PM CDT) athologist Signature Molecular Yes [facility] (Received) Specimen Anatomical Collection Method Collection Time Receive d Time (Source) Location / / Volume Laterality Blood 05/17/2023 3:16 PM 3 9:38 CDT AM CDT Akila BARRERA MDA IP HP MOLECULAR DIAG IF ORDERABLES Performing Organization Address [facility] Phon e Number [facility] Unless otherwise noted, [address] all lab tests performed by: Division of Pathology and Laboratory Medicine [address] [place] [address] Hepatitis B Total Ig Core Ab (SCREENING) (anti-HBc total Ig; HBcAb total Ig) (05/17/2023 3:16 PM CDT) [facility] Signature HBcAb. Non Reactive Non Reactive [facility] Specimen Anatomical Collection Method Collection Time Receive d Time (Source) Location / / Volume Laterality Blood 05/17/2023 3:16 PM 3 7:12 CDT AM CDT Akila BARRERA LAB BLOOD ORDERABLES Performing Organization Address City/[facility] Phon e Number [facility] Unless otherwise noted, [address] all lab tests performed by: Division of Pathology and Laboratory Medicine [address] [place] [address] Hepatitis B Surface Antibody (05/17/2023 3:16 PM CDT) Patholo gist Method Time Signature HBs Ab Non Reactive Non Reactive [facility] Specimen Anatomical Collection Method Collection Time Receive d Time (Source) Location / / Volume Laterality Blood 05/17/2023 3:16 PM 7:12 CDT AM CDT Akila BARRERA LAB BLOOD ORDERABLES Performing Organization Address City/State/ZIP Code Phon e Number [facility] Unless otherwise noted, [place] [address] CENTER all lab tests performed by: Division of Pathology and Laboratory Medicine [address] [facility] CHEST ABDOMEN (04/21/2023 9:10 AM CDT) Specimen (Source) Anatomical Location Collection Method / Collectio n Time Received Time / Laterality Volume Narrative Systemgenerated, Documentation - 023 9:10 AM CDT Study acquired at another institution. For comparison only. No MD [place] originated interpretation requested or a vailable. Pavel GARCÍA OUTSIDE IMAGE ORDERABLES OSI CT Brain (03/07/2023 11:43 PM CDT) Specimen (Source) Anatomical Location Collection Method / Collectio n Time Received Time / Laterality Volume Narrative Systemgenerated, Documentation - 023 11:43 PM CDT Study acquired at another institution. For comparison only. No MD [place] originated interpretation requested or a vailable. Pavel GARCÍA OUTSIDE IMAGE ORDERABLES OSI CT Chest (10/13/2022 11:44 PM DIRECTOR OF STRATEGIC PROGRAMS) Specimen (Source) Anatomical Location Collection Method / Collectio n Time Received Time / Laterality Volume Narrative Systemgenerated, Documentation - 023 11:44 PM CDT Study acquired at another institution. For comparison only. No MD [place] originated interpretation requested or a vailable. Pavel GARCÍA OUTSIDE IMAGE ORDERABLES OSI CT Abdomen (10/13/2022 11:43 PM DIRECTOR OF STRATEGIC PROGRAMS) Specimen (Source) Anatomical Location Collection Method / [...] Accession#, Stained, Block, Unstained Collected Received 05/31/2023 [facility] Received A. [id number], 2 SS, 0 BLOCKS, 0 USS 09/01/2022 05/29/2023 9:43 AM CDT Diagnosis Outside ([id number], 2 SS, 0 BLOCKS, 0 USS, colle cted on 09/01/2022): 05/31/2023 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 (SEE COM MENT) 05/31/2023 at 9:43 AM Comment Recut sections are 05/31/2023 [facility] submitted for 9:43 AM review. CDT Biomarker T: A1 05/31/2023 [facility] Block(s) 9:43 AM CDT Disclaimer "Some tests 05/31/2023 [facility] reported here may 9:43 AM have been CDT developed and performance characteristics determined by [facility] Pathology and Laboratory Medicine. These tests [...] Organization Address City/State/ZIP Code Phon e Number [facility] [place] [address], [place] [address] [place] [employer] after 08/13/2022 Insurance Payer Benefit Plan Subscriber ID Effective Phone Address Typ e / Group Dates [facility] [id number] 2022-[place] [address] [place] [place] [address] [place] [address] Advance Directives Code Status Date Activated Date Inactivated Comments Full Code 07/12/2023 1:45 PM 07/14/2023 3:30 PM Code Status Date Activated Date Inactivated Comments Full Code 07/12/2023 1:38 PM 07/12/2023 1:45 PM Care Teams Manager Perioperative Relationship Specialty Start Date End Date Akila Ko PA PCP - General Gastrointestinal Medical 05/12/23 05/23/[address] [place] [id number] Neha Paiz PCP - External Follow 05/15/232001 [place] [address] Pavel Holman MD PCP - General Cancer Medicine 05/24/[address] [place] [id number] Miri Shepherd, Physician Medical Oncology 06/15/23 MD Loi [address] [place] [id number] Carlton Wooten MD Consulting Physician Pain Management 05/31/[address] [place] [id number]
--- OUTSIDE RECORDS SUMMARY | 2023-08-13 10:15 | XMS REPORT | Continuity of Care Document ---
:1970 Author Organization [facility] t Address [address] [facility]. [address] [place] [address] Care Team Providers Name Role Phone [phone] Primary Care Physician Unavailable JAYLIN SNELL Attending Clinician Unavailable Jaylin Snell APRN Attending Clinician [phone] Jen Gallego Attending Clinician Unavailable Miri Shepherd MD, Loi Attending Clinician Silvestre RN, Rei Attending Clinician Unavailable Monae VALLES, Madelin Gaona Attending Clinician Unavailable Manda LEE, Pavel Attending Clinician Shayne TaverasDArnie Attending Clinician Unavailable Zully MONTES DE OCA, Avis Mason Attending Clinician Artemio LEE, Charlie Attending Clinician Edin LEE, Oneal Attending Clinician [facility] Attending Clinician Gerber Campbell MD Attending Clinician Az LEE, Skip Attending Clinician Rolando LEE PhD, Cari Attending Clinician Nataliya Pascual MD Attending Clinician Mckayla Infante APRN Attending Clinician Katya LEE, Vira Attending Clinician Murphy [facility], Kimberly Attending Clinician NATALIYA PASCUAL Attending Clinician Unavailable Wilma ARANA, Francie Acosta Attending Clinician Monae RN, Haley Proctor Attending Clinician Sarah VALLES, Alexi Chao Attending Clinician Unavailable Leila BARRERA, Annette Gonzalez Attending Clinician Kera LEE, Tommie Attending Clinician Je LEE, Trena Attending Clinician TRENA SHIRLEY Attending Clinician Unavailable [...] Clinician Wayne LEE, Brenden Salazar Attending Clinician [phone] Samy LEE, Effie Flores Attending Clinician GERBER CAMPBELL Admitting Clinician Unavailable ANGELA MALONE Admitting Clinician Unavailable Payers Payer Name Policy Type Policy Number Effective Date Expiration Date S [facility] [id number] 2022 00:00:00 [facility] [id number] 2021 00:00:00 Problems Condition Condition Condition Status Onset Resolution Last Treating Co mments Source Name Details Category Date Date Treatment Clinician Date Hyperkalem Hyperkalem Disease Active 2022-09 U nivers ia ia 1-08 ity of 00:00: [place] 00 MD Yesenia hendrickson [facility] Encounter Encounter Disease Active 2022-09 Uni vers for for 1-07 ity of preproced[place] 00 examin[place] examinatio An derso n n n [facility] Chest pain Chest pain Disease Active 2022-09 U nivers at rest at rest 0-25 ity of 00:00: [place] 00 MD Yesenia hendrickson [facility] Hypertensi Hypertensi Disease Recurre 2022-09 Univers on on nce 0-25 ity of 00:00: [place] 00 MD Yesenia hendrickson [facility] 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, NOS noma, NOS 0-21 ity of of of 00:00: [place] pancreas, pancreas, 00 NOS NOS Yesenia [facility] Cancer Cancer Disease Active 2022-09 Univers associated associated 0-21 it y of pain pain 00:00: [place] 00 MD Yesenia hendrickson [facility] Abdominal Abdominal Disease Active 2022-09 Uni vers pain, pain, 0-21 ity of epigastric [place]igastric [place] Patterson [facility] residential residential Disease Active 2022-09 Uni vers current current 0-21 ity of use of use of 00:00: [place] opiate opiate 00 analgesic analgesic Mason rso n [facility] Malignant Malignant Disease Active 2022-09 Uni vers neoplasm neoplasm 0-18 ity of of body of of [place] pancreas pancreas 00 MD Patterson [facility] SBO (small SBO (small [...] KNOWN Allergy Active [facility] Family History Family Member Diagnosis Comments Start Date Stop Date Source Natural father Brain cancer Universi ty [facility] Maternal aunt Pancreatic cancer Univ [facility]ity [facility] Social History Social Habit Start Date Stop Date Quantity Comments Source Sexual orientation [facility] History [facility] Tobacco use and 2023-05-17 2023-05-17 Former smokeless Uni versity of exposure 00:00:00 00:00:00 [facility] smoked 2023-05-17 2023-05-17 Univers ity of current (pack per 00:00:00 00:00:00 [place] Ehsan Poon ) - Reported Cancer Ce nter Cigarette 2023-05-17 2023-05-17 University of pack-years 00:00:00 00:00:00 Jethro austin [facility] Tobacco Comment 2023-05-17 2023-05-17 Stop all on my Unive rsity of 00:00:00 00:00:00 own Jethro austin [facility] Alcohol Comment 2023-05-17 2023-05-17 08-29-2022 have Univ ersity of 00:00:00 00:00:00 not drink Jethro Valladares [facility] Alcohol intake 2022-09-06 2022-09-06 [facility] (finding) History of Social 2022-09-06 2022-09-[address] [facility] function 00:00:00 00:00:00 Medical Center History [facility] 2022-08-30 2022-08-[address] [facility] Transport Med 00:00:00 00:00:[address] History [facility] 2022-08-30 2022-08-[address] [facility] Housing Unable to 00:00:00 00:00:00 Medical Center Pay History [facility] 2022-08-30 2022-08-[address] [facility] Places 00:00:00 00:00:00 Medical Ce nter Lived History [facility] 2022-08-30 2022-08-[address] [facility] Housing Homeless 00:00:00 00:00:00 Medical Center Last Year History of tobacco 1986-09-18 2019-10-20 Snuff User Univer sity of use 00:00:00 00:00:00 Jethro Valladares [facility] Center Sex Assigned At [birth year] [facility] Rut kes 00:00:00 00:00:00 Medical Center Smoking Status Start Date Stop Date Source Ex-smoker 2023-05-17 00:00:00 2023-05-17 00:00:00 [facility] Never smoked tobacco [facility] Medications Ordered Filled Start Stop Current Ordering Indication Dosage Frequency Signature Comments Components Source Medication Medication Date Date Medication? Clinician (SIG) Name Name rodrigue 2022-09 Yes 2{tbl} Take 2 Univers (SENOKOT) 1-08 tablets by ity of 8.6 mg 15:43: mouth [place] tablet 59 twice MD daily. [facility] 2022-09 Yes 80mg Chew 1 Univ ers (MYLICON) 1-08 tablet (80 ity of 80 mg 15:43: mg) every [place] chewable 59 8 (eight) MD tablet hours as Anderso needed for n flatulence Cancer . [facility] 2022-09 Yes 2{tbl} Take 2 Univers (SENOKOT) 1-08 tablets by ity of 8.6 mg 15:43: mouth [place] tablet 59 twice MD daily. [facility] 2022-09 Yes 80mg Chew 1 Univ ers (MYLICON) 1-08 tablet (80 ity of 80 mg 15:43: mg) every [place] chewable 59 8 (eight) MD tablet hours as Anderso needed for n flatulence Cancer . [place] pancrelipas 2022-09 Yes [id number] Take 4 Un becca e (CREON) 1-08 capsules ity of 6,000-19,00 15:43: (24,000 Shahid as 0-30,000 25 Units) by MD units mouth 3 Anderso capsule (three) n times a Cancer day with Center meals. pancrelipas 2022-09 Yes [id number] Take 4 Un becca e (CREON) 1-08 [...] (three) Anderso times a n day. Cancer [place] DULoxetine 2022-09 Yes 30mg Take 1 Unive [...] as Cancer needed for Center moderate pain. omeprazole 2022-09 Yes 20mg Take 1 Unive rs (PriLOSEC) 1-08 capsule ity of 20 mg 15:43: (20 mg) by [place] capsule 18 mouth MD every Anderso morning n before Cancer breakfast. [place] metFORMIN 2022-09 Yes 500mg Take 1 Unive rs (GLUCOPHAGE 1-08 tablet ity of ) 500 mg 15:43: (500 mg) [place] tablet 18 by mouth MD daily with Anderso breakfast. n Cancer [place] gabapentin 2022-09 Yes neuropathic 300mg Take 1 Univers (NEURONTIN) 1-08 pain capsule ity o f 300 mg 15:43: (300 mg) [place] capsule 18 by mouth 3 MD (three) Anderso times a n day. Cancer Center DULoxetine 2022-09 Yes 30mg Take 1 Unive rs (CYMBALTA) -08 capsule ity of 30 mg 15:43: (30 mg) by Jethro capsule 18 mouth MD daily. Anderso n [...] Yes Malignant 400mg Take 4 Univers 115) 09-25 12 neoplasm of capsules ity of [id number] 00:00: 05:59 body of (400 mg) [place] 100 mg 00 :00 pancreas by mouth MD capsule twice Anderso daily for n 21 days. Cancer Take with Center 8 oz of water on empty stomach (no food 2 hours before and 1 hour after dose). INV-(2020-09- Yes Malignant 400mg Take 4 Univers 115) 09-25 neoplasm of capsules ity of [id number] 00:00: 05:59 body of (400 mg) T [...] MD twice Anderso daily. n Cancer Center apixaban 2022-09 Yes Pulmonary Take 2 Un [...] needed Cancer (constipat Center ion). ciprofloxac 2022-09 Intractable 500mg Take 1 Univers in HCl 0-27 11-17 abdominal tablet ity o f (Cipro) 500 00:00: 00:00 pain (500 mg) [place] mg tablet 00 :00 by mouth MD twice Anderso daily. n [...] Yes Malignant 400mg Take 4 Univers 115) 0 11-12 neoplasm of capsules ity of [id number] 00:00: 05:59 body of (400 mg) [place] 100 mg 00 :00 pancreas by mouth MD capsule twice Anderso daily for n 21 days. Cancer Take with Center 8 oz of water on empty stomach (no food 2 hours before and 1 hour after dose). INV-(2020-09- No Malignant 400mg Take 4 Univers 115) 0 11-08 neoplasm of capsules ity of [id number] 00:00: 22:42 body of (400 mg) [place] 100 mg 00 :46 pancreas by mouth MD capsule twice Anderso daily for n 21 days. Cancer Take with Center 8 oz of water on empty stomach (no food 2 hours before and 1 hour after dose). INV-(2020-09- No Malignant 400mg Take 4 Univers 115) 0- 11-08 neoplasm of capsules ity of [id number] 00:00: 22:42 body of (400 mg) T [...] daily. 300-12.5 mg Anderso per tablet n [facility] irbesartan- 2022-09- No 1{tbl} Take 1 U nivers hydrochloro 0-18 10-18 tablet by it y of thiazide 11:53: 00:00 mouth [place] (AVALIDE) 51 :00 daily. MD 300-12.5 mg Anderso per tablet n [facility] irbesartan- 2022-09- No 1{tbl} Take 1 U nivers hydrochloro 0-18 10-18 tablet by it y of thiazide 11:53: 00:00 mouth [place] (AVALIDE) 51 :00 daily. 300-12.5 mg Anderso per tablet n [facility] omeprazole 2022-09 Yes 20mg Take 1 Unive rs (PriLOSEC) 0-18 capsule ity of 20 mg 11:53: (20 mg) by [place] capsule 50 mouth MD every Anderso morning n before Cancer breakfast. [place] senna 2022-09 Yes 1{tbl} Take 1 Univers (SENOKOT) 0-18 tablet by ity o f 8.6 mg 11:53: mouth as [place] tablet 50 needed. MD Yesenia hendrickson [facility] metFORMIN 2022-09 Yes Take by Unive rs (GLUCOPHAGE 0-18 mouth ity of ) 500 mg 11:53: daily with Shahid as tablet 50 breakfast. MD Yesenia hendrickson [facility] pancrelipas 2022-09 Yes [id number] Take 4 Un becca e (CREON) 0-18 capsules ity of 6,000-19,00 11:53: (24,000 Shahid as 0-30,000 50 Units) by units mouth 3 Anderso capsule (three) n times a Cancer day with Center meals. oxyCODONE 2022-09 Yes 5mg Take 1 Univer s (OXY-IR) 5 0-18 capsule (5 ity of mg capsule 11:53: mg) by [place] 50 mouth MD every 4 Anderso (four) n hours as Cancer needed for Center moderate pain. simethicone 2022-09 Yes 80mg Chew 1 Univ ers (MYLICON) 0-18 tablet (80 ity of 80 mg 11:53: mg) every [place] chewable 50 8 (eight) MD tablet hours as Anderso needed for n flatulence Cancer . [place] methadone 2022-09 Yes 5mg Take 1 Univer s (DOLOPHINE) 0-18 tablet (5 ity of 5 mg tablet 11:51: mg) by Ruf[place] 51 mouth MD every 12 Anderso (twelve) n hours. Cancer [place] gabapentin 2022-09 Yes 300mg Take 1 Univ ers (NEURONTIN) 0-18 capsule ity o f 300 mg 11:49: (300 mg) [place] capsule 58 [facility] DULoxetine 2022-09 Yes 30mg Take 1 Unive rs (CYMBALTA) 0-18 capsule ity of 30 mg 11:49: (30 mg) by [place] capsule 58 mouth MD daily. [facility] irbesartan 2022-09 Yes 300mg Take 1 Univ ers (AVAPRO) 0-07 tablet ity of 300 mg 00:00: (300 mg) [place] tablet 00 by mouth MD daily. [facility] irbesartan 2022-09 Yes 300mg Take 1 Univ ers (AVAPRO) 0-07 tablet ity of 300 mg 00:00: (300 mg) [place] tablet 00 by mouth MD daily. [facility] irbesartan 2022-09 Yes 300mg Take 1 Univ ers (AVAPRO) 0-07 tablet ity of 300 mg 00:00: (300 mg) [place] tablet 00 by mouth MD daily. [facility] morphine 2022- TAKE 15MG Uni vers (MS CONTIN) 05-24 [...] 2,000 Anderso units tab n tablet Cancer Center cholecalcif Yes 50ug Take 50 Uni vers jacquelyn, 1-23 mcg by ity of vitamin D3, 00:00: mouth [place] (VITAMIN 00 daily. D3) 2,000 Anderso units tab n tablet Cancer Center cholecalcif Yes 50ug Take 50 Uni vers jacquelyn, 1-23 mcg by ity of vitamin D3, 00:00: mouth [place] (VITAMIN 00 daily. D3) 2,000 Anderso units tab n tablet Cancer Center polyethylen 2021-09- No 17g QD Take [...] 5 mg-325 mg 00 MD per tablet [facility] polyethylen 2021-09 Yes as needed. Univers e glycol 2-21 ity of (GLYCOLAX) 00:00: [place] 17 00 MD gram[facility] polyethylen 2021-09 Yes 17g Take 17 g U nivers e glycol 2-21 by mouth ity of (GLYCOLAX) 00:00: daily as Shahid as 17 00 needed. MD gram/dose Anderso powder [facility] polyethylen 2021-09 Yes 17g Take 17 g U nivers e glycol 2-21 by mouth ity of (GLYCOLAX) 00:00: daily as Shahid as 17 00 needed. MD gram/dose Andchristina powder [facility] HYDROcodone 2021-09- No as needed. Univers -acetaminop 2-21 10-25 ity of hen (NORCO) 00:00: 00:00 [place] 5 mg-325 mg 00 :00 MD per tablet [facility] HYDROcodone 2021-09- No as needed. Univers -acetaminop 2-21 10-25 ity of hen (NORCO) 00:00: 00:00 [place] 5 mg-325 mg 00 :00 [facility]-09- No 1{tbl} QD Take [address] ate 2-21 01-20 tablet by Henrik (SENOKOT S) 00:00: 23:59 mouth Medi davide 8.6-50 mg 00 :00 nightly Center per tablet for 30 days. senna-docus 2021-09 No 1{tbl} QD Take [address] ate 2-21 -20 tablet by [facility] (SENOKOT S) 00:00: 23:59 mouth Medi davide 8.6-50 mg 00 :00 nightly Center per tablet for 30 days. senna-docus 2021-09 No 1{tbl} QD Take [address] ate 2-21 - tablet by [facility] (SENOKOT S) 00:00: 23:59 [...] Max Daily Amount: 4 tablets HYDROcodone 2021-09 No 1{tbl} Take [address] -acetaminop 2-21 12-31 tablet by [place] gross (NORCO 00:00: 23:59 mouth Medic al 5-325) 00 :00 every 6 Center 5-325 mg (six) per tablet hours as needed for up to 10 days. Max Daily Amount: 4 tablets HYDROcodone 2021-09 No 1{tbl} Take 1 C [...] 106.595 kg WEIGHT 2022-08-30 10:21:00 106.595 kg Body weight 2023-08-08 21:52:00 73.8 kg [facility] MD August on Cancer Center BMI 2023-08-08 21:52:00 26.75 kg/m2 Universi ty of Jethro August on Cancer Center Systolic blood 2023-07-26 20:27:21 116 mm[Hg] Univer sity of pressure Jethro August on Cancer Center Diastolic blood 2023-07-26 20:27:21 81 mm[Hg] Unive rsity of pressure Jethro August on Cancer Center Heart rate 2023-07-26 20:27:21 105 /min Universi ty of Jethro August on Cancer Center Body temperature 2023-07-26 20:27:21 36.89 Viviana Univ ersity of Jethro August on Cancer Center Respiratory rate 2023-07-26 20:27:21 18 /min Univ ersity of Jethro August on Cancer Center Body height 2023-07-26 20:27:21 166.1 cm Universi ty of Jethro August on Cancer Center Body weight 2023-07-26 20:27:21 72.8 kg Universi ty of Jethro August on [facility] BMI 2023-07-26 20:27:21 26.39 kg/m2 Universi ty of Jethro August on Cancer Center Oxygen saturation in 2023-07-26 20:27:21 99 /min University of Arterial blood by Jethro willoughbyon Pulse oximetry Cancer Center Systolic blood 2023-07-06 22:00:00 129 mm[Hg] Univer sity of pressure Jethro August on Cancer Center Diastolic blood 2023-07-06 22:00:00 81 mm[Hg] Unive rsity of pressure Jethro August on Cancer Center Heart rate 2023-07-06 22:00:00 100 /min Universi ty of Jethro August on Cancer Center Body temperature 2023-07-06 22:00:00 36.5 [place] Univ ersity of Jethro August on Cancer Center Respiratory rate 2023-07-06 22:00:00 18 /min Univ ersity of Jethro August on Cancer Center Oxygen saturation in 2023-07-06 22:00:00 100 /min University of Arterial blood by Jethro willoughbyon Pulse oximetry Cancer Center Body weight 2023-07-06 18:31:00 70.7 kg Universi ty of Jethro August on Cancer Center BMI 2023-07-06 18:31:00 25.63 kg/m2 [facility] MD August [facility] Body height 2023-07-05 16:43:10 166.1 cm [facility] MD August [facility] Systolic blood 2022-09-07 12:00:00 137 mm[Hg] [facility] Diastolic blood 2022-09-07 12:00:00 86 mm[Hg] [facility] Heart rate 2022-09-07 12:00:00 84 /min [facility] Body temperature 2022-09-07 12:00:00 36.67 Viviana [facility] Respiratory rate 2022-09-07 12:00:00 17 /min [facility] Oxygen saturation in 2022-09-07 12:00:00 95 /min [facility] Arterial blood by Medical Ce nter Pulse oximetry Body height 2022-08-30 10:24:00 170.2 cm [facility] Body weight 2022-08-30 10:24:00 106.595 kg [facility] BMI 2022-08-30 10:24:00 36.81 kg/m2 [facility] Procedures Procedure Date / Time Performing Source Performed Clinician CONFIRM ABORH TYPE 2023-08-08 [facility] 14:01:00 Jaylin Patterson [facility] CARCINOEMBRYONIC ANTIGEN 2023-08-08 [facility] Univers ity of 14:01:00 Jaylin hendrickson [facility] CARBOHYDRATE ANTIGEN 19-9 2023-08-08 MurrietaavrilArturo, Univer sity of 14:01:00 Jaylin hendrickson [facility] COMPREHENSIVE METABOLIC PANEL 2023-08-08 MurrietaavrilArturo Un iversity of 14:01:00 Jaylin Patterson [facility] COMPLETE BLOOD COUNT W/ 2023-08-08 [facility] DIFFERENTIAL 14:01:00 Jaylin hendrickson [facility] LACTATE DEHYDROGENASE 2023-08-08 [facility] 14:01:00 Jaylin hendrickson [facility] URIC ACID 2023-08-08 [facility] 14:01:00 Jaylin hendrickson [facility] MAGNESIUM LEVEL 2023-08-08 [facility] 14:01:00 Jaylin hendrickson [facility] PHOSPHORUS LEVEL 2023-08-08 [facility] 14:01:00 Jaylin hendrickson [facility] AMYLASE LEVEL 2023-08-08 [facility] 14:01:00 Jaylin hendrickson [facility] LIPASE LEVEL 2023-08-08 [facility] 14:01:00 Jaylin hendrickson [facility] PROTHROMBIN TIME 2023-08-08 [facility] 14:01:00 Jaylin hendrickson [facility] APTT 2023-08-08 [facility] 14:01:00 Jaylin hendrickson [facility] URINALYSIS WITH MICROSCOPIC IF 2023-08-08 [facility], U niversity of INDICATED 14:01:00 Jaylin hendrickson [facility] THYROID STIMULATING HORMONE 2023-08-08 [facility] ersity of 14:01:00 Jaylin hendrickson [facility] .CBC 2023-08-08 [facility] 14:01:00 Jaylin hendrickson [facility] URINALYSIS MICROSCOPIC EXAM 2023-08-08 TamekaArturo, Univ ersity of 14:01:00 Jaylin hendrickson [facility] TYPE AND SCREEN 2023-08-07 [facility] 19:44:00 Jaylin hendrickson [facility] CARCINOEMBRYONIC ANTIGEN 2023-07-26 [facility] Univers ity of 20:14:00 Jaylin hendrickson [facility] CARBOHYDRATE ANTIGEN 19-9 2023-07-26 [facility], Univer sity of 20:14:00 Jaylin hendrickson [facility] COMPREHENSIVE METABOLIC PANEL 2023-07-26 [facility], Un iversity of 20:14:00 [facility]PLETE [facility]LOOD [facility] W/ 2023-07-26 [facility] ty of DIFFERENTIAL 20:14:00 Jaylin Patterson [facility] LACTATE DEHYDROGENASE 2023-07-26 [facility] 20:14:00 Jaylinra [facility]ro LEE [facility] URIC ACID 2023-07-26 [facility] 20:14:00 Jaylin hendrickson [facility] MAGNESIUM LEVEL 2023-07-26 [facility] :14:00 Jaylin Morelos [facility] PHOSPHORUS LEVEL 2023-07-26 [facility] :14:00 Jaylin Patterson [facility] AMYLASE LEVEL 2023-07-26 [facility] :14:00 Jaylin Patterson [facility] LIPASE LEVEL 2023-07-26 [facility] 20:14:00 Jaylin Patterson [facility] PROTHROMBIN TIME 2023-07-26 [facility] 20:14:00 Jaylin Patterson [facility] APTT 2023-07-26 [facility] 20:14:00 [facility] URINALYSIS WITH MICROSCOPIC IF 2023-07-26 [facility] niversity of INDICATED 20:14:00 Jaylin Patterson [facility] THYROID STIMULATING HORMONE 2023-07-26 [facility], [facility] ersity of 20:14:00 Jaylin Patterson [facility] .CBC 2023-07-26 [facility] of 20:14:00 Jaylin Patterson [facility] URINALYSIS MICROSCOPIC EXAM 2023-07-26 [facility] ersity of 20:14:00 [facility] COMPREHENSIVE METABOLIC PANEL 2023-07-20 Charlie Ulloa Un iversity of 17:18:00 [place] MD Patterson [facility] COMPLETE BLOOD COUNT W/ 2023-07-20 [facility] ty of DIFFERENTIAL 17:18:00 [place] [facility] LACTATE DEHYDROGENASE 2023-07-20 [facility] 17:18:00 [place] [facility] URIC ACID 2023-07-20 [facility] of 17:18:00 [place] [facility] MAGNESIUM LEVEL 2023-07-20 [facility] 17:18:00 [place] [facility] PHOSPHORUS LEVEL 2023-07-20 [facility] of 17:18:00 [place] [facility] AMYLASE LEVEL 2023-07-20 [facility] of 17:18:00 [place] [facility] LIPASE LEVEL 2023-07-20 [facility] of 17:18:00 [place] [facility] .CBC 2023-07-20 [facility] 17:18:00 [place] [facility] POC GLUCOSE SCREEN 2023-07-14 [facility] of 14:11:00 [place] [facility] POC GLUCOSE SCREEN 2023-07-14 [facility] of 13:10:00 [place] [facility] MAGNESIUM LEVEL 2023-07-14 [facility] of 07:46:00 [facility] PHOSPHORUS LEVEL 2023-07-14 [facility] of 07:46:00 [facility] COMPLETE BLOOD COUNT W/ 2023-07-14 [facility] sity of DIFFERENTIAL 07:46:00 [facility] COMPREHENSIVE METABOLIC PANEL 2023-07-14 [facility] of 07:46:00 [facility] .CBC 2023-07-14 [facility] of 07:46:00 [facility] POC GLUCOSE SCREEN 2023-07-14 Nataliya Pascual [place] of 02:49:00 [place] [facility] URINE CULTURE 2023-07-14 Mckayla Infante [place] of 00:33:00 [place] [facility] POC GLUCOSE SCREEN 2023-07-13 Nataliya Pascual [place] of 23:07:00 [place] Yesenia hendrickson [facility] ECHOCARDIOGRAM 2D LIMITED - 2023-07-13 Shana [facility] ersity of FOLLOW UP 21:00:44 ivaroon Jethro hendrickson [facility] LACTIC ACID, VENOUS 2023-07-13 Mckayla Infante [facility] of 19:23:00 [place] Yesenia hendrickson [facility] HC PROCALCITONIN (PCT) 2023-07-13 Mckayla Infante [facility] ty of 19:23:00 [place] Yesenia hendrickson [facility] CT CHEST PULMONARY EMBOLISM W 2023-07-13 Mckayla Infante U niversity of CONTRAST 19:11:59 Jethro hendrickson [facility] POC GLUCOSE SCREEN 2023-07-13 Nataliya Pascual [place] of 19:10:00 [place] Yesenia hendrickson [facility] POC GLUCOSE SCREEN 2023-07-13 Nataliya Pascual [place] of 13:49:00 [place] Yesenia hendrickson [facility] MAGNESIUM LEVEL 2023-07-13 [facility] of 07:29:00 [facility] PHOSPHORUS LEVEL 2023-07-13 [facility] of 07:29:00 Damian [place] [facility] COMPLETE BLOOD COUNT W/ 2023-07-13 [facility] sity of DIFFERENTIAL 07:29:00 Damian [facility] COMPREHENSIVE METABOLIC PANEL 2023-07-13 [facility] of 07:29:00 Damian [place] MD Patterson [facility] .CBC 2023-07-13 [facility] of 07:29:00 Damian [place] [facility] POC GLUCOSE SCREEN 2023-07-12 Skip Bernardo [place] of 20:44:00 [place] Yesenia hendrickson [facility] OSI CT CHEST ABDOMEN PELVIS 2023-07-12 Mckayla Infante Uni versity of 19:49:00 [place] Yesenia hendrickson [facility] OSI CHEST 2023-07-12 Mckayla Infante [facility] 19:32:00 [place] MD Anderso [facility] XR ABDOMEN AP 2023-07-12 [facility] of 17:42:24 [place] Patterson [facility] BLOOD CULTURE 2023-07-12 [facility] of 17:21:00 [place] Patterson [facility] BLOOD GAS VENOUS 2023-07-12 [facility] of 17:21:00 [place] [facility] XR CHEST 1 VW 2023-07-12 Nataliya Pascual [place] of 16:55:51 [place] Patterson [facility] COMPLETE BLOOD COUNT W/ 2023-07-12 Nataliya Pascual [facility] ty of DIFFERENTIAL 16:25:00 [place] [facility] COMPREHENSIVE METABOLIC PANEL 2023-07-12 Nataliya Pascual Un iversity of 16:25:00 [place] Patterson [facility] MAGNESIUM LEVEL 2023-07-12 Nataliya Pascual [place] of 16:25:00 [place] [facility] PHOSPHORUS LEVEL 2023-07-12 Nataliya Pascual [place] of 16:25:00 [place] [facility] CARDIAC PANEL 2023-07-12 Nataliya Pascual [facility] of 16:25:00 [place] [facility] NT PRO BNP 2023-07-12 Nataliya Pascual [place] of 16:25:00 [place] [facility] PROTHROMBIN TIME 2023-07-12 Nataliya Pascual [place] of 16:25:00 [place] [facility] APTT 2023-07-12 Nataliya Pascual [place] of 16:25:00 [place] Patterson [facility] AMYLASE LEVEL 2023-07-12 Nataliya Pascual [place] of 16:25:00 [place] [facility] LIPASE LEVEL 2023-07-12 Nataliya [facility] of 16:25:00 [place] [facility] .CBC 2023-07-12 Nataliya Pascual [place] of 16:25:00 [place] [facility] EKG, 12-LEAD (PORTABLE) 2023-07-12 Aamir Alvares sity of 00:00:00 Damian [place] [facility] COMPREHENSIVE METABOLIC PANEL 2023-07-06 Charlie Ulloa Un iversity of 16:27:00 [place] [facility] COMPLETE BLOOD COUNT W/ 2023-07-06 [facility] DIFFERENTIAL 16:27:00 [place] [facility] LACTATE DEHYDROGENASE 2023-07-06 Artemio, [facility] of 16:27:00 [place] [facility] URIC ACID 2023-07-06 Artemio, [facility] of 16:27:00 [place] [facility] MAGNESIUM LEVEL 2023-07-06 Artemio, [facility] of 16:27:00 [place] [facility] PHOSPHORUS LEVEL 2023-07-06 Artemio, [facility] of 16:27:00 [place] [facility] AMYLASE LEVEL 2023-07-06 Artemio, [facility] of 16:27:00 [place] [facility] LIPASE LEVEL 2023-07-06 Artemio, [facility] of 16:27:00 [place] [facility] PROTHROMBIN TIME 2023-07-06 [facility] 16:27:00 [place] [facility] APTT 2023-07-06 Artemio [facility] of 16:27:00 [place] [facility] GLUCOSE LEVEL 2023-07-06 Artemio, [facility] of 16:27:00 [place] [facility] BLOOD UREA NITROGEN 2023-07-06 Artemio, [facility] o f 16:27:00 [place] [facility] ELECTROLYTE PANEL 2023-07-06 Artemio [facility] of 16:27:00 [place] [facility] .GLOMERULAR FILTRATION RATE 2023-07-06 Antoinette [facility] ersity of 16:27:00 [place] [facility] CALCIUM LEVEL 2023-07-06 Artemio, [facility] of 16:27:00 [place] [facility] ALBUMIN LEVEL 2023-07-06 Artemio [facility] of 16:27:00 [place] [facility] ALKALINE PHOSPHATASE 2023-07-06 Artemio [facility] of 16:27:00 [place] [facility] ALANINE AMINOTRANSFERASE 2023-07-06 Antoinette Ulloag [facility] ity of 16:27:00 [place] [facility] ASPARTATE AMINOTRANSFERASE 2023-07-06 Charlie [facility]ll[facility] rs[facility] of 16:27:00 [place] [facility] TOTAL PROTEIN 2023-07-06 Charlie Ulloa [place] of 16:27:00 [place] [facility] FRACTIONATED BILIRUBIN 2023-07-06 Charlie Ulloa [facility] of 16:27:00 [place] [facility] .CBC 2023-07-06 Charlie Ulloa [facility] 16:27:00 [place] [facility] SERUM CREATININE 2023-07-06 Charlie Ulloa [facility] 16:27:00 [place] [facility] DIFFERENTIAL 2023-07-06 Charlie Ulloa [facility] 16:27:00 [place] [facility] QIAC SERVICES 2023-07-05 [facility] 21:07:42 Jaylin Morelos MD [facility] CT CHEST ABDOMEN PELVIS W WO 2023-07-05 TamekaArturo, Uni versity of CONTRAST 00:33:53 Jaylin Patterson [facility] ECHOCARDIOGRAM 2D COMPLETE 2023-07-04 [facility], [facility] rsity of 19:54:14 Jaylin Morelos MD [facility] CARBOHYDRATE ANTIGEN 19-9 2023-07-04 [facility], [facility] sity of 13:30:00 Jaylin Morelos [facility] CARCINOEMBRYONIC ANTIGEN 2023-07-04 [facility] ity of 13:30:00 Jaylin Morelos MD [facility] AMYLASE LEVEL 2023-07-04 [facility] of 13:30:00 Jaylin Morelos [facility] APTT 2023-07-04 [facility] of 13:30:00 Jaylin Morelos MD [facility] CALCIUM LEVEL 2023-07-04 [facility] of 13:30:00 Jaylin Morelos MD [facility] COMPLETE BLOOD COUNT W/ 2023-07-04 TamekaArturo [facility] of DIFFERENTIAL 13:30:00 Jaylin Morelos MD [facility] COMPREHENSIVE METABOLIC PANEL 2023-07-04 TamekaArturo iversity of 13:30:00 Jaylin hendrickson [facility] HBV DNA QUANT 2023-07-04 [facility] of 13:30:00 Jalyin hendrickson [facility] HEPATITIS B SURFACE ANTIGEN 2023-07-04 [facility] ersity of 13:30:00 Jaylin hendrickson [facility] HEPATITIS C VIRUS ANTIBODY 2023-07-04 [facility] of 13:30:00 Jaylin Patterson [facility] HIV 1/2 ANTIGEN/ANTIBODY, FOURTH 2023-07-04 [facility] GEN W/RFL 13:30:00 Jaylin hendrickson [facility] URINALYSIS WITH MICROSCOPIC IF 2023-07-04 [facility], U niversity of INDICATED 13:30:00 Jaylin Patterson [facility] URIC ACID 2023-07-04 [facility] 13:30:00 Jaylin hendrickson [facility] THYROID STIMULATING HORMONE 2023-07-04 [facility] ersity of 13:30:00 Jaylin hendrickson [facility] PROTHROMBIN TIME 2023-07-04 [facility] 13:30:00 Jaylin hendrickson [facility] MAGNESIUM LEVEL 2023-07-04 [facility] 13:30:00 Jaylin hendrickson [facility] LIPASE LEVEL 2023-07-04 [facility] 13:30:00 Jaylin hendrickson [facility] LACTATE DEHYDROGENASE 2023-07-04 [facility] 13:30:00 Jaylin Patterson [facility] GLUCOSE LEVEL 2023-07-04 [facility] 13:30:00 Jaylin Patterson [facility] BLOOD UREA NITROGEN 2023-07-04 [facility] o f 13:30:00 Jaylin hendrickson [facility] ELECTROLYTE PANEL 2023-07-04 [facility] 13:30:00 Jaylin Patterson [facility] SERUM CREATININE 2023-07-04 [facility] of 13:30:00 [place]lin [place] [facility] .GLOMERULAR FILTRATION RATE 2023-07-04 [facility] ersity of 13:30:00 Jaylinra Jethro LEE [facility] ALBUMIN LEVEL 2023-07-04 [facility] of 13:30:00 Jaylinra Jethro LEE [facility] ALKALINE PHOSPHATASE 2023-07-04 [facility] of 13:30:00 Jaylinra Jethro LEE [facility] ALANINE AMINOTRANSFERASE 2023-07-04 [facility] ity of 13:30:00 [facility] ASPARTATE AMINOTRANSFERASE 2023-07-04 [facility] of 13:30:00 [facility] TOTAL PROTEIN 2023-07-04 [facility] of 13:30:00 Jaylin [place] [facility] FRACTIONATED BILIRUBIN 2023-07-04 [facility] 13:30:00 [place]lin [place] [facility] .CBC 2023-07-04 [facility] of 13:30:00 Jaylinra Jethro LEE [facility] DIFFERENTIAL 2023-07-04 [facility] of 13:30:00 Jaylin [place] [facility] URINALYSIS MICROSCOPIC EXAM 2023-07-04 [facility] ersity of 13:30:00 Jaylinra Jethro LEE [facility] EKG, 12-LEAD (SCHEDULED) 2023-07-04 [facility] ity of 00:00:00 Jaylinra Jethro LEE [facility] COMPLETE BLOOD COUNT W/ 2023-05-30 Pavel Holman [facility] ty of DIFFERENTIAL 16:52:00 [place] [facility] COMPREHENSIVE METABOLIC PANEL 2023-05-30 Pavel Holman Un iversity of 16:52:00 [place] [facility] CARBOHYDRATE ANTIGEN 19-9 2023-05-30 Pavel Holman Univer sity of 16:52:00 [facility] .CBC 2023-05-30 [facility] of 16:52:00 [place] [facility] DIFFERENTIAL 2023-05-30 [facility] of 16:52:00 [facility] GLUCOSE LEVEL 2023-05-30 [facility] of 16:52:00 [facility] BLOOD UREA NITROGEN 2023-05-30 [facility] o f 16:52:00 [facility] ELECTROLYTE PANEL 2023-05-30 [facility] of 16:52:00 [facility] SERUM CREATININE 2023-05-30 [facility] of 16:52:00 [facility] .GLOMERULAR FILTRATION RATE 2023-05-30 [facility] ersity of 16:52:00 [place] [facility] CALCIUM LEVEL 2023-05-30 [facility] of 16:52:00 [facility] ALBUMIN LEVEL 2023-05-30 [facility] of 16:52:00 [facility] ALKALINE PHOSPHATASE 2023-05-30 [facility] of 16:52:00 [place] [facility] ALANINE AMINOTRANSFERASE 2023-05-30 [facility] ity of 16:52:00 [facility] ASPARTATE AMINOTRANSFERASE 2023-05-30 [facility] rsity of 16:52:00 [place] [facility] TOTAL PROTEIN 2023-05-30 [facility] of 16:52:00 [facility] FRACTIONATED BILIRUBIN 2023-05-30 [facility] 16:52:00 [facility] CT CHEST ABDOMEN PELVIS W WO 2023-05-18 Ko, [facility] Uni versity of CONTRAST 13:01:00 [facility] COMPLETE BLOOD COUNT W/ 2023-05-17 Ko, [facility]i ty of DIFFERENTIAL 20:16:00 [facility] COMPREHENSIVE METABOLIC PANEL 2023-05-17 Ko, [facility] Un iversity of 20:16:00 [place] [facility] LACTATE DEHYDROGENASE 2023-05-17Ko, [facility] of 20:16:00 [place] [facility] MAGNESIUM LEVEL 2023-05-17, [facility] of 20:16:00 [place] [facility] PHOSPHORUS LEVEL 2023-05-17, [facility] of 20:16:00 [place] [facility] PROTHROMBIN TIME 2023-05-17, [facility] of 20:16:00 [place] [facility] CARCINOEMBRYONIC ANTIGEN 2023-05-17, [facility] ity of 20:16:00 [place] [facility] CARBOHYDRATE ANTIGEN 19-9 2023-05-17, [facility] Un[facility] sity of 20:16:00 [place] [facility] HEPATITIS B CORE ANTIBODY 2023-05-17, [facility] s[facility] of 20:16:00 [place] [facility] HEPATITIS B SURFACE ANTIGEN 2023-05-17, [facility] ersity of 20:16:00 [place] [facility] HEPATITIS B SURFACE ANTIBODY 2023-05-17, [facility] Uni versity of 20:16:00 [place] [facility] HEPATITIS C VIRUS ANTIBODY 2023-05-17, [facility] Unive rsity of 20:16:00 [place] [facility] NGS BLOOD CONTROL 2023-05-17, [facility] of 20:16:00 [place] [facility] .CBC 2023-05-17, [facility] of 20:16:00 [place] [facility] DIFFERENTIAL 2023-05-17, [facility] of 20:16:00 [place] [facility] GLUCOSE LEVEL 2023-05-17, [facility] of 20:16:00 [place] [facility] BLOOD UREA NITROGEN 2023-05-17, [facility] o f 20:16:00 [place] [facility] ELECTROLYTE PANEL 2023-05-17, [facility] of 20:16:00 [place] [facility] SERUM CREATININE 2023-05-17Ko, [facility] of 20:16:00 [place] [facility] .GLOMERULAR FILTRATION RATE 2023-05-17Ko, [facility] ersity of 20:16:00 [place] [facility] CALCIUM LEVEL 2023-05-17Ko, [facility] of 20:16:00 [place] [facility] ALBUMIN LEVEL 2023-05-17, [facility] of 20:16:00 [place] [facility] ALKALINE PHOSPHATASE 2023-05-17, [facility] of 20:16:00 [place] [facility] ALANINE AMINOTRANSFERASE 2023-05-17, [facility] ity of 20:16:00 [place] [facility] ASPARTATE AMINOTRANSFERASE 2023-05-17, [facility] rs[facility] of 20:16:00 [place] [facility] TOTAL PROTEIN 2023-05-17, [facility] of 20:16:00 [place] [facility] FRACTIONATED BILIRUBIN 2023-05-17, [facility] 20:16:00 [place] [facility] OSI CT CHEST ABDOMEN 2023-04-21 [facility] of 14:10:00 [place] [facility] OSI CT CHEST ABDOMEN PELVIS 2023-03-08 [facility] ersity of 04:43:00 [place] [facility] OSI CT BRAIN 2023-03-08 [facility] of 04:43:00 [place] [facility] OSI CT CHEST ABDOMEN PELVIS 2022-12-31 [facility] ersity of 04:43:00 [place] [facility] REPORT OF PROCEDURE - ENDOSCOPY 2022-11-11 Sravani Gomez [facility] URL 16:35:33 [facility] OSI CT CHEST 2022-10-14 [facility] of 05:44:00 [place] [facility] OSI CT ABDOMEN 2022-10-14 [facility] of 05:43:00 [place] [facility] [place] ERCP 2022-09-06 Keihanian, Sravani [facility] 10:00:00 [facility] ENDOSCOPIC RETROGRADE 2022-09-06 Keihanian, Sravani [facility] CHOLANGIOPANCREATOGRAPHY 08:49:00 [facility] (ENDOSCOPIC RETROGRADE CHOLANGIOPANCREATOGRAPHY) PROCEDURE W/ C-ARM 2022-09-06 Caityanian, Sravani [facility] 08:49:00 [facility] ENDOSCOPIC RETROGRADE 2022-09-06 Keihanian, Sravani [facility] CHOLANGIOPANCREATOGRAPHY, WITH 08:49:00 [facility] STENT REMOVAL ERCP, WITH BALLOON SWEEP OF BILE 2022-09-[address] [facility] [address] [facility] Sravani [facility] DUCTS 08:49:00 [facility] ENDOSCOPIC RETROGRADE 2022-09-06 Keihanian, Sravani [facility] CHOLANGIOPANCREATOGRAPHY, WITH 08:49:00 M [facility] BILE DUCT STENT INSERTION ABORH, MANUAL 2022-09-[address] [facility] 05:57:00 [facility] CBC W/PLT COUNT & AUTO 2022-09-06 Salim, Juanito [facility] DIFFERENTIAL 04:14:00 [facility] CBC W/PLT COUNT & AUTO 2022-09-06 Salim, Juanito [facility] DIFFERENTIAL 04:14:00 [facility] BASIC METABOLIC PANEL 2022-09-06 Salim, Juanito [facility] 04:14:00 [facility] PROTHROMBIN TIME/INR 2022-09-06 Salim, [facility] 04:14:00 [facility] TYPE AND SCREEN, AUTOMATED 2022-09-06 Salim, [facility] 04:14:00 [facility] CARBOHYDRATE ANTIGEN 19-9 (CA 2022-09-03 Tamil, Ayana [facility] 19-9) 10:37:[address] [facility] [address] CHEST WITH IV CONTRAST 2022-09-[address] [facility] 03:05:00 [facility] US LIVER BIOPSY 2022-09-[address] [facility] 14:30:00 [facility] TISSUE EXAM 2022-09-[address] [facility] 14:07:00 [facility] PT/APTT 2022-09-[address] [facility] 09:29:00 [facility] CBC (HEMOGRAM ONLY) 2022-09-[address] [facility] 09:29:00 [facility] BASIC METABOLIC PANEL 2022-09-[address] [facility] 09:29:00 [facility] HEPATIC FUNCTION PANEL 2022-09-[address] [facility] 09:11:00 [facility] REPORT OF PROCEDURE - ENDOSCOPY 2022-09-[address] [facility] URL 18:02:47 [facility] REPORT OF PROCEDURE - ENDOSCOPY 2022-09-[address] [facility] URL 17:59:13 [facility] [place] ERCP 2022-09-[address] [facility] 16:42:00 [facility] CYTOLOGY 2022-09-[address] [facility] 16:20:00 [facility] CYTOLOGY REQUEST 2022-09-[address] [facility] 16:20:00 [facility] TISSUE EXAM 2022-09-[address] [facility] 15:53:00 [facility] ESOPHAGOGASTRODUODENOSCOPY, WITH 2022-09-[address] [facility] ENDOSCOPIC US 15:24:00 [facility] ENDOSCOPIC RETROGRADE 2022-09-01 Samy, Effie [facility] CHOLANGIOPANCREATOGRAPHY 15:24:00 [facility] (ENDOSCOPIC RETROGRADE CHOLANGIOPANCREATOGRAPHY) PROCEDURE W/ C-ARM 2022-09-01 Samy, Christinaan [facility] 15:24:00 [facility] ERCP, WITH SPHINCTEROTOMY 2022-09-01 Jawrakan, Salmaan [facility] 15:24:00 [facility] ENDOSCOPIC RETROGRADE 2022-09-01 Jetrakan, Salmaan [facility] CHOLANGIOPANCREATOGRAPHY, WITH 15:24:00 [facility] [facility] BILE DUCT STENT INSERTION CBC W/PLT COUNT & AUTO 2022-09-[address] [facility] DIFFERENTIAL 03:31:00 [facility] BASIC METABOLIC PANEL 2022-09-[address] [facility] 03:31:00 [facility] HEPATIC FUNCTION PANEL 2022-09-[address] [facility] 03:31:00 [facility] CBC W/PLT COUNT & AUTO 2022-09-[address] [facility] DIFFERENTIAL 03:31:00 [facility] PROTHROMBIN TIME/INR 2022-09-[address] [facility] 03:31:00 [facility] CARBOHYDRATE ANTIGEN 19-9 (CA 2022-09-[address] [facility] 19-9) 03:31:00 [facility] PATHOLOGY OUTSIDE INTERPRETATION 2022-09-01 Radha Zambrano of 00:00:00 [place] MD Patterson [facility] CT ABDOMEN/PELVIS WITH & WITHOUT 2022-08-[address] [facility] IV CONTRAST 16:13:00 [facility] SARS-COV2/RT-PCR ([facility]ESS [facility] & REF 2022-08-[address] [facility]) 13:54:00 [facility] CBC W/PLT COUNT & AUTO 2022-08-[address] [facility] DIFFERENTIAL 13:52:00 [facility] CBC W/PLT COUNT & AUTO 2022-08-[address] [facility] DIFFERENTIAL 13:52:00 [facility] COMPREHENSIVE METABOLIC PANEL 2022-08-31 [address]iegos [facility] 13:52:00 [facility] US ABDOMEN COMPLETE 2022-08-[address] [facility] 22:50:00 [facility] MR ABDOMEN WITHOUT IV CONTRAST 2022-08-[address] [facility] MRCP 13:09:00 [facility] URINALYSIS WITH MICROSCOPIC IF 2022-08-[address] [facility] INDICATED 03:28:00 [facility] URINALYSIS MICROSCOPIC 2022-08-[address] [facility] 03:28:00 [facility] CBC (HEMOGRAM ONLY) 2022-08-[address] [facility] 03:25:00 [facility] COMPREHENSIVE METABOLIC PANEL 2022-08-[address] [facility] 03:25:00 [facility] BLOOD CULTURE 2022-08-[address] [facility] 22:51:00 Medical Center BLOOD CULTURE 2022-08-[address] [facility] 22:50:00 Medical Center Plan of Care Planned Activity Planned [...] Cessation Counseling and Screening (12+)] Future Scheduled 2023-08-10 COVID-19 Vaccination Uni versity of Test 08:21:37 (#1) [code = COVID-[address] [facility] [place] [place] Vaccination (#1)] Cancer [facility] Future Scheduled 2023-08-01 COVID-19 Vaccination Uni versity of Test 08:45:29 (#1) [code = COVID-[address] [facility] [place] [place] Vaccination (#1)] Cancer [facility] Future Scheduled 2023-07-11 COVID-19 Vaccination Uni versity of Test 15:40:28 (#1) [code = COVID-[address] [facility] [place] [place] Vaccination (#1)] Cancer [facility] Future Scheduled [...] [facility] Test 00:00:00 [code = 64255508] Medical Ce nter Future Scheduled 2004-01-05 Lipid panel (procedure) [facility] Test 00:00:00 [code = 13650516] Medical Ce nter Future Scheduled 2004-01-05 Lipid panel (procedure) [facility] Test 00:00:00 [code = 71497394] Medical Ce nter Future Scheduled 1988-01-05 DTAP/TDAP/TD [...] screening Medical Cent er (procedure) [code = 071941036] Future Scheduled 1984-01-[address] Human [address] [facility] 00:[facility]00 virus screening [facility] Cent er (procedure) [code = 856566252] Future Scheduled 1984-01-[address] Human immunodeficiency [facility] 00:00:00 virus screening Medical Cent er (procedure) [code = 508833294] Future Scheduled 1969 COVID-19 VACCINE (#1) [facility] [code = COVID-19 VACCINE Med ical Center (#1)] Future Scheduled 1969 COVID-19 VACCINE (#1) [facility] 00:[facility]:00 [code = COVID-19 VACCINE Med ical Center (#1)] Future Scheduled 1969 COVID-19 VACCINE (#1) [facility] 00:00:00 [code = COVID-19 VACCINE Med ical Center (#1)] Future Scheduled 1969 Sigmoidoscopy [code = [facility] Sigmoidoscopy] Medical Cente r Future Scheduled 1969 CT Colonography (combo) [facility] Test 00:00:00 [code = CT Colonography [facility] (combo)] Future Scheduled 1969 Screening for malignant [facility] Test 00:00:00 neoplasm of colon Medical Ce nter (procedure) [code = 073312803] Future Scheduled 1969 Screening for malignant [facility] Test 00:00:00 neoplasm of colon Medical Ce nter (procedure) [code = 079958802] Future Scheduled 1969 Screening for malignant [facility] Test 00:00:00 neoplasm of colon Medical Ce nter (procedure) [code = 104561756] Future Scheduled 1969 Screening for malignant [facility] Test 00:00:00 neoplasm of colon Medical Ce nter (procedure) [code = 121020429] Future Scheduled 1969 Sigmoidoscopy [code = [facility] 00:[facility] Sigmoidoscopy] Medical Cente r Future Scheduled 1969 CT Colonography (combo) [facility] Test 00:00:00 [code = CT [facility] ([facility])] Future Scheduled 1969 Screening for malignant [facility] Test 00:00:00 neoplasm of colon Medical Ce nter (procedure) [code = 685123412] Future Scheduled 1969 Screening for malignant [facility] Test 00:00:00 neoplasm of colon Medical Ce nter (procedure) [code = 019750195] Future Scheduled 1969 Screening for malignant [facility] Test 00:00:00 neoplasm of colon Medical Ce nter (procedure) [code = 417073113] Future Scheduled 1969 Screening for malignant [facility] Test 00:00:00 neoplasm of colon Medical Ce nter (procedure) [code = 613838033] Future Scheduled 1969 Sigmoidoscopy [code = [facility] 00:[facility] Sigmoidoscopy] Medical Cente r Future Scheduled 1969 CT Colonography (combo) [facility] Test 00:00:00 [code = CT Colonography [facility] (combo)] Future Scheduled 1969 Screening for malignant [facility] Test 00:00:00 neoplasm of colon Medical Ce nter (procedure) [code = 407828289] Future Scheduled 1969 Screening for malignant [facility] Test 00:00:00 neoplasm of colon Medical Ce nter (procedure) [code = 149423427] Future Scheduled 1969 Screening for malignant [facility] Test 00:00:00 neoplasm of colon Medical Ce nter (procedure) [code = 164266312] Future Scheduled 1969 Screening for malignant [facility] Test 00:00:00 neoplasm of colon Medical Ce nter (procedure) [code = 287681343] Encounters Start End Encounter Admission Attending Care Care Encounter Source Date/Time Date/Time Type Type Clinicians Facility Department ID 2023-08-08 2023-08-08 Outpatient [facility] [id number] 15:45:00 23:59:00 JAYLIN DE LA CRUZso n 2023-08-08 2023-08-08 [facility] 1.2.840.1 [id number] [facility] 15:45:00 23:59:00 Encounter dorothy Jaylin 66825.1.1 ity of 3.412.2.7 [place] .3.591989 MD Obrien8 [facility] 2023-08-08 2023-08-08 [facility] 1.2.840.1 [id number] [facility] 07:30:00 08:30:00 dorothy, Jaylin 16938.1.1 ity of 3.412.2.7 [place] .3.127000 MD Ramos [facility] 2023-08-08 2023-08-08 Outpatient [facility] MDA [id number] [place] 07:49:47 08:03:56 DOROTHYJULIETARA Stacy [facility] 2023-08-08 2023-08-08 Outpatient [facility] MDA [id number] [place] 07:37:00 07:37:00 DOROTHYJULIETA LopezRA Kumar [facility] 2023-08-08 2023-08-08 Orders Julián, 1.2.840.1 [id number] [facility] 00:00:00 00:00:00 Only Jen S 56859.1.1 ity of 3.412.2.7 [place] .3.058456 MD Ramos [facility] 2023-08-08 2023-08-08 Orders Julián, 1.2.840.1 [id number] [facility] 00:00:00 00:00:00 Only Jen S 86344.1.1 ity of 3.412.2.7 [place] .3.543874 MD Ramos [facility] 2023-08-08 2023-08-08 [facility] 1.2.840.1 [id number] Univers 00:00:00 00:00:00 Only Jaylin de la cruz 94149.1.1 ity of 3.412.2.7 [place] .3.329801 MD Ramos [facility] 2023-08-08 2023-08-08 Travel 1.2.840.1 1.2.918.331 [id number] [facility] 00:00:00 00:00:00 50055.1.1 350.1.13.41 ity of 3.412.2.7 2[place].7.3.698 [place] .3.5769[place] 084.8 MD Obrien8 [facility] 2023-08-07 2023-08-07 Outpatient [facility] MDA MDA [id number] 13:36:53 13:44:19 JAYLIN DE LA CRUZso n 2023-08-07 2023-08-07 Travel 1.2.840.1 1.2.608.594 [id number] Univers 00:00:00 00:00:00 35128.1.1 350.1.13.41 ity of 3.412.2.7 2.[place]7.3.698 [place] .3.373100 084.8 MD Obrien8 [facility] 2023-08-07 2023-08-07 Orders [facility] 1.2.840.1 [id number] Univers 00:00:00 00:00:00 Only Jaylin de la cruz 39890.1.1 ity of 3.412.2.7 [place] .3.328617 MD Obrien8 [facility] 2023-08-07 2023-08-07 Orders Gallego, 1.2.840.1 [id number] Univers 00:00:00 00:00:00 Only Jen Jonathan 27180.1.1 ity of 3.412.2.7 [place] .3.933680 MD Ramos [facility] 2023-08-04 2023-08-04 Outpatient [facility] MDA MDA [id number] 14:23:30 15:19:03 JAYLIN DE LA CRUZso madhavi 2023-08-04 2023-08-04 Outpatient [facility] MDA MDA [id number] 14:23:30 15:19:03 JAYLIN DE LA CRUZ [id number] Stacy demarco n 2023-08-04 2023-08-04 Telemedici Jaylin Snell 1.2.840. 1 [id number] Univers 14:20:00 15:19:03 [place] 10582.1.1 ity of 3.412.2.7 [place] .3.443638 MD Obrien8 [facility] 2023-08-02 2023-08-02 Telephone Silvestre, 1.2.840.1 [id number] Univers 00:00:00 00:00:00 Rei 65946.1.1 ity of 3.412.2.7 [place] .3.259551 MD Obrien8 [facility] 2023-08-01 2023-08-01 Telephone Licona, 1.2.840.1 [id number] Univers 00:00:00 00:00:00 Madelin T 80547.1.1 it y of 3.412.2.7 [place] .3.647785 MD Obrein8 [facility] 2023-08-01 2023-08-01 Telephone Licona, 1.2.840.1 [id number] Univers 00:00:00 00:00:00 Madelin T 25885.1.1 it y of 3.412.2.7 [place] .3.148062 MD Obrien8 [facility] 2023-07-31 2023-07-31 Pratik Gallego, 1.2.840.1 [id number] Univers 00:00:00 00:00:00 Only Jen S 87154.1.1 ity of 3.412.2.7 [place] .3.459311 MD Obrien8 [facility] 2023-07-31 2023-07-31 Orders Julián, 1.2.840.1 [id number] Univers 00:00:00 00:00:00 Only Jen S 82687.1.1 ity of 3.412.2.7 [place] .3.521136 MD Obrien8 [facility] 2023-07-26 2023-07-26 [facility], 1.2.840.1 [id number] Univers 16:59:36 23:59:00 Encounter Pavel 90347.1.1 it y of 3.412.2.7 [place] .3.583960 MD Obrien8 [facility] 2023-07-26 2023-07-26 [facility], 1.2.840.1 [id number] Univers 16:59:36 23:59:00 Encounter Pavel 05836.1.1 it y of 3.412.2.7 [place] .3.146177 MD Obrien8 [facility] 2023-07-26 2023-07-26 [facility] 1.2.840.1 [id number] Univers 14:00:00 16:58:00 Encounter Jaylin de la cruz 62427.1.1 ity of 3.412.2.7 [place] .3.680614 MD Obrien8 [facility] 2023-07-26 2023-07-26 [facility] 1.2.840.1 [id number] Univers 14:00:00 16:58:00 Encounter Jaylin de la cruz 27482.1.1 ity of 3.412.2.7 [place] .3.671496 MD Obrien8 [facility] 2023-07-26 2023-07-26 Follow-Up EL Rodatul 1.2.840.1 [id number] Univers 16:00:00 16:43:19 Cora 84832.1.1 ity of Loi 3.412.2.7 [place] .3.068258 MD bOrien8 [facility] 2023-07-26 2023-07-26 Follow-Up Rodon 1.2.840.1 [id number] Univers 16:00:00 16:43:19 Cora 88170.1.1 ity of Loi 3.412.2.7 [place] .3.268286 MD Obrien8 [facility] 2023-07-262023-07-26 Orders Shayne, 1.2.840.1 [id number] Univers 00:00:00 00:00:00 Only Arnie H 20911.1.1 ity of 3.412.2.7 [place] .3.232642 MD Ramos [facility] 2023-07-26 2023-07-26 Travel 1.2.840.1 1.2.824.046 [id number] Univers 00:00:00 00:00:00 58072.1.1 350.1.13.41 ity of 3.412.2.7 2.[place].7.3.698 [place] .3.306793 084.8 MD Ramos [facility] 2023-07-26 2023-07-26 Orders Gallego, 1.2.840.1 [id number] Univers 00:00:00 00:00:00 Only Jen S 18548.1.1 ity of 3.412.2.7 [place] .3.210544 MD Ramos [facility] 2023-07-26 2023-07-26 Orders Shayne, 1.2.840.1 [id number] Univers 00:00:00 00:00:00 Only Arnie H 04898.1.1 ity of 3.412.2.7 [place] .3.379506 MD Ramos [facility] 2023-07-26 2023-07-26 Travel 1.2.840.1 1.2.358.180 [id number] [id number] Univers 00:00:00 00:00:00 34784.1.1 350.1.13.41 ity of 3.412.2.7 2.2.7.3.698 [place] .3.318728 084Micah8 MD Ramos [facility] 2023-07-26 2023-07-26 Orders Gallego, 1.2.840.1 [id number] Univers 00:00:00 00:00:00 Only Jen S 39263.1.1 ity of 3.412.2.7 [place] .3.142200 MD Ramos [facility] 2023-07-25 2023-07-25 [facility] Pavel Holman 1.2.840.1 [id number] Univers 10:15:00 23:59:00 Encounter Avis Andrea 38746.1.1 ity of 3.412.2.7 [place] .3.225302 MD Obrien8 [facility] 2023-07-25 2023-07-25 [facility] Pavel Holman 1.2.840.1 [id number] Univers 10:15:00 23:59:00 Encounter Avis Andrea 47027.1.1 ity of 3.412.2.7 [place] .3.921808 MD Ramos [facility] 2023-07-25 2023-07-25 Travel 1.2.840.1 1.2.698.880 [id number] Univers 00:00:00 00:00:00 75880.1.1 350.1.13.41 ity of 3.412.2.7 2.2.7.3.698 [place] .3.901405 084.8 MD Ramos [facility] 2023-07-25 2023-07-25 Travel 1.2.840.1 1.2.414.656 [id number] [id number] Univers 00:00:00 00:00:00 42321.1.1 350.1.13.41 ity of 3.412.2.7 2.2.7.3.698 [place] .3.873733 084.Bandar Ramos [facility] 2023-07-20 2023-07-20 [facility] Charlie Bourgeois 1.2.840.1 [id number] Univers 12:00:00 23:59:00 Encounter 29410.1.1 it y of 3.412.2.7 [place] .3.137784 MD Ramos [facility] 2023-07-20 2023-07-20 [facility] Charlie Ulloa 1.2.840.1 [id number] Univers 12:00:00 23:59:00 Encounter 00809.1.1 it y of 3.412.2.7 [place] .3.987130 MD Ramos [facility] 2023-07-20 2023-07-20 Follow-Up Julieta Hawkinsra 1.2.840.1 [id number] Univers 14:20:00 16:13:24 Oneal Jesus 67305.1.1 ity of 3.412.2.7 [place] .3.255991 MD Ramos [facility] 2023-07-20 2023-07-20 Follow-Up ChanningJaylin 1.2.840.1 [id number] Univers 14:20:00 16:13:24 Oneal Jesus 03767.1.1 ity of 3.412.2.7 [place] .3.684745 MD Ramos [facility] 2023-07-20 2023-07-20 Orders Bashir, 1.2.840.1 [id number] Univers 00:00:00 00:00:00 Only Eliz 78572.1.1 ity of 3.412.2.7 [place] .3.062320 MD Ramos [facility] 2023-07-20 2023-07-20 Travel 1.2.840.1 1.2.919.856 0558 [id number] Univers 00:00:00 00:00:00 34345.1.1 350.1.13.41 ity of 3.412.2.7 2.2.7.3.698 [place] .3.014159 084.8 MD Ramos [facility] 2023-07-20 2023-07-20 Orders Tameka-Meeta 1.2.840.1 [id number] Univers 00:00:00 00:00:00 Only Jaylin de la cruz 67005.1.1 ity of 3.412.2.7 [place] .3.085276 MD Ramos [facility] 2023-07-20 2023-07-20 Orders Julián, 1.2.840.1 [id number] Univers 00:00:00 00:00:00 Only Jen S 22823.1.1 ity of 3.412.2.7 [place] .3.165773 MD Ramos [facility] 2023-07-20 2023-07-20 Orders Julián, 1.2.840.1 [id number] Univers 00:00:00 00:00:00 Only Jen S 85060.1.1 ity of 3.412.2.7 [place] .3.585477 MD Ramos [facility] 2023-07-20 2023-07-20 Orders Bashir, 1.2.840.1 [id number] Univers 00:00:00 00:00:00 Only Eliz 08982.1.1 ity of 3.412.2.7 [place] .3.075063 MD Ramos [facility] 2023-07-20 2023-07-20 Travel 1.2.840.1 1.2.668.514 [id number] [id number] Univers 00:00:00 00:00:00 25644.1.1 350.1.13.41 ity of 3.412.2.7 2.2.7.3.698 [place] .3.764622 084.8 MD Ramos [facility] 2023-07-20 2023-07-20 Orders Musekiwa-Ad 1.2.840.1 [id number] Univers 00:00:00 00:00:00 Only Jaylin de la cruz 24239.1.1 ity of 3.412.2.7 [place] .3.778858 MD Obrien8 [facility] 2023-07-20 2023-07-20 Orders Julián 1.2.840.1 [id number] Univers 00:00:00 00:00:00 Only Jen S 31142.1.1 ity of 3.412.2.7 [place] .3.562289 MD Obrien8 [facility] 2023-07-20 2023-07-20 Orders Julián, 1.2.840.1 [id number] Univers 00:00:00 00:00:00 Only Jen S 10426.1.1 ity of 3.412.2.7 [place] .3.594627 MD Obrien8 [facility] 2023-07-12 2023-07-14 [facility] Gerebr Campbell 1.2.840.1 [id number] Univers 11:12:00 13:25:00 Encounter Skip Bernardo 77021.1.1 ity of Fu, Siqing 3.412.2.7 Shahid as Nataliya Pascual3.417765 MD Obrien8 [facility] 2023-07-12 2023-07-14 [facility] Gerber Campbell 1.2.840.1 [id number] Univers 11:12:00 13:25:00 Skip Bernardo 42873.1.1 ity of Fu, Siqing 3.412.2.7 Shahid as Nataliya Pascual3.872215 MD Obrien8 [facility] 2023-07-14 2023-07-14 Orders Gallego, 1.2.840.1 [id number] Univers 00:00:00 00:00:00 Only Jen S 20574.1.1 ity of 3.412.2.7 [place] .3.439243 MD Obrien8 [facility] 2023-07-14 2023-07-14 Orders Gallego, 1.2.840.1 [id number] Univers 00:00:00 00:00:00 Only Jen S 48122.1.1 ity of 3.412.2.7 [place] .3.258460 MD Obrien8 [facility] 2023-07-13 2023-07-13 Ancillary EL Thopswetal, 1.2.840.1 [id number] Univers 20:15:00 20:20:00 Procedure Mckayla P 65393.1.1 it y of 3.412.2.7 [place] .3.963189 MD Obrien8 [facility] 2023-07-13 2023-07-13 Ancillary Thoppil, 1.2.840.1 [id number] Univers 20:15:00 20:20:00 Procedure Mckayla P 70911.1.1 it y of 3.412.2.7 [place] .3.591459 MD Obrien8 [facility] 2023-07-13 2023-07-13 Ancillary EL Thoppil, 1.2.840.1 [id number] [id number] Univers 20:10:00 20:15:00 Procedure Mckayla P 37038.1.1 it y of 3.412.2.7 [place] .3.809629 MD Obrien8 [facility] 2023-07-13 2023-07-13 Ancillary Thoppil, 1.2.840.1 [id number] Univers 20:10:00 20:15:00 Procedure Mckayla P 97994.1.1 it y of 3.412.2.7 [place] .3.691610 MD Obrien8 [facility] 2023-07-13 2023-07-13 Ancillary EL Thoppil, 1.2.840.1 [id number] Univers 20:05:00 20:10:00 Procedure Mckayla P 14667.1.1 it y of 3.412.2.7 [place] .3.096049 MD Obrien8 [facility] 2023-07-13 2023-07-13 Ancillary Thoppil, 1.2.840.1 [id number] Univers 20:05:00 20:10:00 Procedure Mckayla P 01611.1.1 it y of 3.412.2.7 [place] .3.595773 MD Obrien8 [facility] 2023-07-13 2023-07-13 Orders Katya, 1.2.840.1 [id number] Univers 00:00:00 00:00:00 Only Gelilla 45243.1.1 ity of 3.412.2.7 [place] .3.872531 MD Obrien8 [facility] 2023-07-13 2023-07-13 Kimberly Olivera 1.2.840.1 [id number] Univers 00:00:00 00:00:00 Only 50020.1.1 ity of 3.412.2.7 [place] .3.177482 MD Ramos [facility] 2023-07-13 2023-07-13 Orders Shayne, 1.2.840.1 [id number] Univers 00:00:00 00:00:00 Only Arnie H 23703.1.1 ity of 3.412.2.7 [place] .3.090637 MD Ramos [facility] 2023-07-13 2023-07-13 Orders Katya, 1.2.840.1 [id number] Univers 00:00:00 00:00:00 Only Isaiashley 68250.1.1 ity of 3.412.2.7 [place] .3.513213 MD Ramos [facility] 2023-07-13 2023-07-13 Orders Kimberly Arrington 1.2.840.1 [id number] Univers 00:00:00 00:00:00 Only 71265.1.1 ity of 3.412.2.7 [place] .3.513122 MD Ramos [facility] 2023-07-13 2023-07-13 Orders Shayne, 1.2.840.1 [id number] Univers 00:00:00 00:00:00 Only Arnie H 69854.1.1 ity of 3.412.2.7 [place] .3.382919 MD Ramos [facility] 2023-07-12 2023-07-12 Outpatient ER VU, MEENAKSHIEN MDA Emergency [id number] MD 11:12:00 11:12:00 166745 [facility] 2023-07-12 2023-07-12 Travel 1.2.840.1 1.2.555.428 [id number] [id number] Univers 00:00:00 00:00:00 30211.1.1 350.1.13.41 ity of 3.412.2.7 2.[place]7.3.698 [place] .3.742842 084.8 MD Obrien8 [facility] 2023-07-12 2023-07-12 Travel 1.2.840.1 1.2.575.420 5567 [id number] Univers 00:00:00 00:00:00 92801.1.1 350.1.13.41 ity of 3.412.2.7 2.2.7.3.698 [place] .3.721275 084.8 MD Obrien8 [facility] 2023-07-10 2023-07-10 Education Dillon, 1.2.840.1 [id number] Univers 00:00:00 00:00:00 Francie Acosta 90969.1.1 i ty of 3.412.2.7 [place] .3.696332 MD Ramos [facility] 2023-07-10 2023-07-10 Education Dillon, 1.2.840.1 [id number] Univers 00:00:00 00:00:00 Francie Acosta 92108.1.1 i ty of 3.412.2.7 [place] .3.599106 MD Ramos [facility] 2023-07-06 2023[facility]07-06 [facility] 1.2.840.1 [id number] Univers 09:15:00 09:15:00 Encounter Haley Licona 17954.1.1 ity of 3.412.2.7 [place] .3.491594 MD Ramos [facility] 2023-07-06 2023-07-06 [facility] 1.2.840.1 [id number] Univers 09:15:00 09:15:00 Encounter Jaylin de la cruz 26634.1.1 ity of 3.412.2.7 [place] .3.313749 MD Ramos [facility] 2023-07-06 2023-07-06 [facility] 1.2.840.1 [id number] Univers 09:15:00 09:15:00 Encounter Jaylin de la cruz 32452.1.1 ity of 3.412.2.7 [place] .3.260173 MD Ramos [facility] 2023-07-06 2023-07-06 [facility] 1.2.840.1 [id number] Univers 09:15:00 09:15:00 Encounter Haley Licona Proctor 83093.1.1 ity of 3.412.2.7 [place] .3.273320 MD Ramos [facility] 2023-07-06 2023-07-06 [facility] Artemio Charlie 1.2.840.1 [id number] Univers 08:15:00 09:14:00 Encounter [id number] it y of 3.412.2.7 [place] .3.938775 MD Ramos [facility] 2023-07-06 [facility]07[facility]1 [id number] Univers 08:15:00 09:14:00 Encounter [id number] it y of 3.412.2.7 [place] .[id number] MD Ramos [facility] 2023-07-06 2023-07-06 Pratik Gallego, 1.2.840.1 [id number] Univers 00:00:00 00:00:00 Only Jen S 29319.1.1 ity of 3.412.2.7 [place] .3.742317 MD Ramos [facility] 2023-07-06 2023-07-06 Travel 1.2.840.1 1.2.002.135 0257 [id number] Univers 00:00:00 00:00:00 84140.1.1 350.1.13.41 ity of 3.412.2.7 [place].3.698 [place]3.609511 084.8 MD Ramos [facility] 2023-07-06 2023-07-06 Pratik Gallego, 1.2.840.1 [id number] [id number] Univers 00:00:00 00:00:00 Only Jen S 33528.1.1 ity of 3.412.2.7 [place] .3.636661 MD Obrien8 [facility] 2023-07-06 2023-07-06 Travel 1.2.840.1 1.2.112.628 1045 [id number] Univers 00:00:00 00:00:00 72098.1.1 350.1.13.41 ity of 3.412.2.7 [place].7.3.698 [place] .3.359678 084.8 MD Obrien8 [facility] 2023-07-05 2023-07-05 Outpatient KENDRA TEIXEIRA [facility] [id number] 13:59:35 13:59:35 JAYLIN DE LA CRUZ 2023-07-05 2023-07-05 Follow-Up Charlie Bourgeois 1.2.840.1 [id number] Univers 11:30:00 12:09:10 94361.1.1 ity of 3.412.2.7 [place] .3.688535 MD Ramos [facility] 2023-07-05 2023-07-05 Follow-Up Charlie Ulloa 1.2.840.1 [id number] Univers 11:30:00 12:09:10 82509.1.1 ity of 3.412.2.7 [place] .3.948772 MD Ramos [facility] 2023-07-05 2023-07-05 Documentfortino Gallego 1.2.840.1 [id number] 11 [id number] Univers 00:00:00 00:00:00 ion Jen S 12184.1.1 ity of 3.412.2.7 [place] .3.568113 MD Ramos [facility] 2023-07-05 2023-07-05 Pratik Teixeira 1.2.840.1 [id number] 11 [id number] Univers 00:00:00 00:00:00 Only Jaylin de la cruz 11428.1.1 ity of 3.412.2.7 [place] .3.705873 MD Ramos [facility] 2023-07-05 2023-07-05 Orders Charlie Ulloa 1.2.840.1 [id number] 11 [id number] Univers 00:00:00 00:00:00 Only 54543.1.1 ity of 3.412.2.7 [place] .3.939389 MD Obrien8 [facility] 2023-07-05 2023-07-05 Travel 1.2.840.1 1.2.281.585 6133 [id number] Univers 00:00:00 00:00:00 33980.1.1 350.1.13.41 ity of 3.412.2.7 [place]7.3.698 [place] .3.638202 084.8 MD Ramos [facility] 2023-07-05 2023-07-05 Orders Shyane, 1.2.840.1 [id number] Univers 00:00:00 00:00:00 Only Arnie Clements 89855.1.1 ity of 3.412.2.7 [place] .3.681158 MD Ramos [facility] 2023-07-05 2023-07-05 Documentat Julián, 1.2.840.1 [id number] 11 [id number] Univers 00:00:00 00:00:00 ion Jen Castillo 23894.1.1 ity of 3.412.2.7 [place] .3.112523 MD Ramos [facility] 2023-07-05 2023-07-05 Orders Musekiwa-Ad 1.2.840.1 [id number] 11 [id number] Univers 00:00:00 00:00:00 Only Jaylin de la cruz 41000.1.1 ity of 3.412.2.7 [place] .3.394515 MD Ramos [facility] 2023-07-05 2023-07-05 Orders Charlie Ulloa 1.2.840.1 [id number] 11 [id number] Univers 00:00:00 00:00:00 Only 80242.1.1 ity of 3.412.2.7 [place] .3.914015 MD Obrine8 [facility] 2023-07-05 2023-07-05 Travel 1.2.840.1 1.2.066.406 4427 [id number] Univers 00:00:00 00:00:00 22114.1.1 350.1.13.41 ity of 3.412.2.7 [place]7.3.698 [place] .3.411149 084.8 .8 [facility] 2023-07-05 2023-07-05 Orders Shayne, 1.2.840.1 [id number] Univers 00:00:00 00:00:00 Only Arnie Clements 12683.1.1 ity of 3.412.2.7 [place] .3.252320 MD Obrien8 [facility] 2023-07-04 2023-07-04 [facility] 1.2.840.1 [id number] 1 [id number] Univers 10:48:07 23:59:00 Encounter Jaylin de la cruz 53594.1.1 ity of 3.412.2.7 [place] .3.790560 MD Obrien8 [facility] 2023-07-04 2023-07-04 [facility] 1.2.840.1 [id number] 1 [id number] Univers 10:48:07 23:59:00 Encounter Jaylin de la cruz 54678.1.1 ity of 3.412.2.7 [place] .3.627959 MD Obrien8 [facility] 2023-07-04 2023-07-04 [facility] 1.2.840.1 [id number] Univers 18:35:00 21:00:00 Procedure Jaylin de la cruz 07060.1.1 ity of 3.412.2.7 [place] .3.951175 MD Obrien8 [facility] 2023-07-04 2023-07-04 [facility] 1.2.840.1 [id number] Univers 18:35:00 21:00:00 Procedure Jaylin de la cruz 14039.1.1 ity of 3.412.2.7 [place] .3.820281 MD Obrien8 [facility] 2023-07-04 2023-07-04 [facility] MDA 277 0285-20 10:48:07 10:48:07 JAYLIN DE LA CRUZ 445806 An kadiso n 2023-07-04 2023-07-04 [facility] 1.2.840.1 [id number] 1 [id number] Univers 08:00:00 10:47:00 Encounter Jaylin de la cruz 14783.1.1 ity of 3.412.2.7 [place] .3.667571 MD Obrien8 [facility] 2023-07-04 2023-07-04 [facility] 1.2.840.1 [id number] 1 [id number] Univers 08:00:00 10:47:00 Encounter Jaylin de la cruz 24231.1.1 ity of 3.412.2.7 [place] .3.185148 MD Obrien8 [facility] 2023-07-04 [facility]1 [id number] Univers 07:00:00 07:00:00 Encounter Alexi Smith 27023.1.1 ity of 3.412.2.7 [place] .3.824240 MD Obrien8 [facility] 2023-07-04 2023-07-04 [facility] 1.2.840.1 [id number] 1 [id number] Univers 07:00:00 07:00:00 Encounter Jaylin de la cruz 11408.1.1 ity of 3.412.2.7 [place] .3.371794 MD Obrien8 [facility] 2023-07-04 2023-07-04 [facility]1 [id number] Univers 07:00:00 07:00:00 Encounter Alexi Smith 95831.1.1 ity of 3.412.2.7 [place] .3.474724 MD Ramos [facility] 2023-07-04 2023-07-04 [facility] 1.2.840.1 [id number] 1 [id number] Univers 07:00:00 07:00:00 Encounter Jaylin de la cruz 89926.1.1 ity of 3.412.2.7 [place] .3.718825 MD Obrien8 [facility] 2023-07-04 2023-07-04 Orders Camejo, 1.2.840.1 [id number] Univers 00:00:00 00:00:00 Only Eliz 64396.1.1 ity of 3.412.2.7 [place] .3.778933 MD Obrien8 [facility] 2023-07-04 2023-07-04 Orders Shayne, 1.2.840.1 [id number] Univers 00:00:00 00:00:00 Only Arnie H 96326.1.1 ity of 3.412.2.7 [place] .3.848115 MD Obrien8 [facility] 2023-07-04 2023-07-04 Travel 1.2.840.1 1.2.084.098 8414 [id number] Univers 00:00:00 00:00:00 86910.1.1 350.1.13.41 ity of 3.412.2.7 2.2.7.3.698 [place]3.931773 084.8 MD Obrien8 [facility] 2023-07-04 2023-07-04 Orders Camejo, 1.2.840.1 [id number] Univers 00:00:00 00:00:00 Only Eliz 77305.1.1 ity of 3.412.2.7 [place] .3.125677 MD Ramos [facility] 2023-07-04 2023-07-04 Orders Shayne, 1.2.840.1 [id number] Univers 00:00:00 00:00:00 Only Arnie H 04273.1.1 ity of 3.412.2.7 [place] .3.378014 MD Obrien8 [facility] 2023-07-04 2023-07-04 Travel 1.2.840.1 1.2.051.726 4449 [id number] Univers 00:00:00 00:00:00 69556.1.1 350.1.13.41 ity of 3.412.2.7 2.[place].7.3.698 [place] .3.955285 084.8 .8 [facility] 2023-07-03 2023-07-03 Orders Julián, 1.2.840.1 [id number] Univers 00:00:00 00:00:00 Only Jen S 95187.1.1 ity of 3.412.2.7 [place] .3.987991 MD Obrien8 [facility] 2023-07-03 2023-07-03 Orders Julián, 1.2.840.1 [id number] Univers 00:00:00 00:00:00 Only Jen S 39591.1.1 ity of 3.412.2.7 [place] .3.693983 MD Obrien8 [facility] 2023-06-30 2023-06-30 Pratik Dee, 1.2.840.1 [id number] Univers 00:00:00 00:00:00 Only Annette E 75910.1.1 it y of 3.412.2.7 [place] .3.021465 MD Obrien8 [facility] 2023-06-30 2023-06-30 Pratik Dee, 1.2.840.1 [id number] Univers 00:00:00 00:00:00 Only Annette E 63974.1.1 it y of 3.412.2.7 [place] .3.186551 MD Obrien8 [facility] 2023-06-28 2023-06-28 Orders Julián, 1.2.840.1 [id number] Univers 00:00:00 00:00:00 Only Jen S 66582.1.1 ity of 3.412.2.7 [place] .3.759170 MD Ramos [facility] 2023-06-28 2023-06-28 Orders Gallego, 1.2.840.1 [id number] Univers 00:00:00 00:00:00 Only Jen S 73089.1.1 ity of 3.412.2.7 [place] .3.758618 MD Obrien8 [facility] 2023-06-20 2023-06-20 Documentat Gallego, 1.2.840.1 [id number] 11 [id number] Univers 00:00:00 00:00:00 ion Jen S 20786.1.1 ity of 3.412.2.7 [place] .3.269746 MD Obrien8 [facility] 2023-06-20 2023-06-20 Documentat Gallego, 1.2.840.1 [id number] 11 [id number] Univers 00:00:00 00:00:00 ion Jen S 49200.1.1 ity of 3.412.2.7 [place] .3.746998 MD Obrien8 [facility] 2023-06-12 2023-06-12 Ancillary EL Pant, 1.2.840.1 [id number] 1111 [id number] Univers 22:40:00 22:45:00 Procedure Pavel 15810.1.1 it y of 3.412.2.7 [place] .3.588936 MD Obrien8 [facility] 2023-06-12 2023-06-12 Ancillary Pant, 1.2.840.1 [id number] 1111 [id number] Univers 22:40:00 22:45:00 Procedure Pavel 08177.1.1 it y of 3.412.2.7 [place] .3.507689 MD Obrien8 [facility] 2023-06-12 2023-06-12 Ancillary EL Pant, 1.2.840.1 [id number] 1111 [id number] Univers 22:35:00 22:40:00 Procedure Pavel 98701.1.1 it y of 3.412.2.7 [place] .3.350142 MD Obrien8 [facility] 2023-06-12 2023-06-12 Ancillary Pant, 1.2.840.1 [id number] 1111 [id number] Univers 22:35:00 22:40:00 Procedure Pavel 99880.1.1 it y of 3.412.2.7 [place] .3.908632 MD Ramos [facility] 2023-06-12 2023-06-12 Ancillary EL Pant, 1.2.840.1 [id number] 1111 [id number] Univers 22:30:00 22:35:00 Procedure Pavel 86897.1.1 it y of 3.412.2.7 [place] .3.354722 MD Obrien8 [facility] 2023-06-12 2023-06-12 Ancillary Pant, 1.2.840.1 [id number] 1111 [id number] Univers 22:30:00 22:35:00 Procedure Pavel 96142.1.1 it y of 3.412.2.7 [place] .3.626662 MD Ramos [facility] 2023-06-12 2023-06-12 Ancillary EL Pant, 1.2.840.1 [id number] 1111 [id number] Univers 22:25:00 22:30:00 Procedure Pavel 17563.1.1 it y of 3.412.2.7 [place] .3.318173 MD Obrien8 [facility] 2023-06-12 2023-06-12 Ancillary Pant, 1.2.840.1 [id number] 1111 [id number] Univers 22:25:00 22:30:00 Procedure Pavel 18577.1.1 it y of 3.412.2.7 [place] .3.644485 MD Obrien8 [facility] 2023-06-12 2023-06-12 Ancillary EL Pant, 1.2.840.1 [id number] 1111 [id number] Univers 22:20:00 22:25:00 Procedure Pavel 01973.1.1 it y of 3.412.2.7 [place] .3Micah088473 MD Obrien8 [facility] 2023-06-12 2023-06-12 Ancillary Pant, 1.2.840.1 [id number] 1111 [id number] Univers 22:20:00 22:25:00 Procedure Pavel 27362.1.1 it y of 3.412.2.7 [place] .3Micah219469 MD Obrien8 [facility] 2023-06-08 2023-06-08 Orders Kera, 1.2.840.1 [id number] 11 [id number] Univers 00:00:00 00:00:00 Only Tommie 71843.1.1 ity of 3.412.2.7 [place] .3Micah510875 MD Obrien8 [facility] 2023-06-08 2023-06-08 Orders Kera, 1.2.840.1 [id number] 11 [id number] Univers 00:00:00 00:00:00 Only Tommie 56650.1.1 ity of 3.412.2.7 [place] .3Micah336474 MD Obrien8 [facility] 2023-06-07 2023-06-07 Telemedici EL Rodon 1.2.840.1 [id number] 441 [id number] Univers 14:20:00 14:20:00 ne Cora 18061.1.1 ity of Loi 3.412.2.7 [place] .3Micah682407 MD Obrien8 [facility] 2023-06-07 2023-06-07 Telemedici Rodon 1.2.840.1 [id number] 103 [id number] Univers 14:20:00 14:20:00 ne Cora 45135.1.1 ity of Loi 3.412.2.7 [place] .3.438827 MD Ramos [facility] 2023-05-31 2023-05-31 [facility], 1.2.840.1 [id number] Univers 13:24:26 23:59:00 Encounter Trena 38919.1.1 it y of 3.412.2.7 [place] .3.360305 MD Ramos [facility] 2023-05-31 2023-05-31 Outpatient CLIMATOLOGY PROFESSOR, [facility] [id number] -20 13:24:26 23:59:00 TRENA [id number] [facility] 2023-05-31 2023-05-31 Hospital Je, 1.2.840.1 [id number] Univers 13:24:26 23:59:00 Encounter Trena 45090.1.1 it y of 3.412.2.7 [place] .3.240752 MD Ramos [facility] 2023-05-31 2023-05-31 Follow-Up EL Pant, 1.2.840.1 [id number] [id number] Univers 13:00:00 13:14:32 Pavel 08694.1.1 ity of 3.412.2.7 [place] .3.979177 MD Ramos [facility] 2023-05-31 2023-05-31 Follow-Up Pant, 1.2.840.1 [id number] 1110 [id number] Univers 13:00:00 13:14:32 Pavel 18271.1.1 ity of 3.412.2.7 [place] .3.259844 MD Ramos [facility] 2023-05-31 2023-05-31 Travel 1.2.840.1 1.2.929.189 0211 [id number] Univers 00:00:00 00:00:00 83218.1.1 350.1.13.41 ity of 3.412.2.7 2.2.7.3.698 [place]3.223422 084.8 MD Ramos [facility] 2023-05-31 2023-05-31 Travel 1.2.840.1 1.2.956.071 1173 004382 Univers 00:00:00 00:00:00 81504.1.1 350.1.13.41 ity of 3.412.2.7 2.2.7.3.698 [place] .3.495621 084.8 MD Ramos [facility] 2023-05-30 2023-05-30 Hospital KENDRA Holman, 1.2.840.1 [id number] Univers 11:48:14 23:59:00 Encounter Pavel 57387.1.1 it y of 3.412.2.7 [place] .3.444053 MD Ramos [facility] 2023-05-30 2023-05-30 Hospital Pant, 1.2.840.1 [id number] Univers 11:48:14 23:59:00 Encounter Pavel 37527.1.1 it y of 3.412.2.7 [place] .3.003650 MD Ramos [facility] 2023-05-29 2023-05-29 Lab Jamaal Bauman 1.2.840.1 [id number] Univers 00:00:00 00:00:00 Radha Masters 98572.1.1 ity of n 3.412.2.7 [place] .3.943169 MD Ramos [facility] 2023-05-29 2023-05-29 Lab Jamaal Bauman 1.2.840.1 [id number] Univers 00:00:00 00:00:00 Radha Masters 44863.1.1 ity of n 3.412.2.7 [place] .3.131140 MD Ramos [facility] 2023-05-24 2023-05-24 Ancillary Pant, 1.2.840.1 [id number] [id number] Univers 20:00:00 20:05:00 Procedure Pavel 31042.1.1 it y of 3.412.2.7 [place] .3.289715 MD Ramos [facility] 2023-05-24 2023-05-24 Ancillary Pant, 1.2.840.1 [id number] [id number] Univers 20:00:00 20:05:00 Procedure Pavel 04593.1.1 it y of 3.412.2.7 [place] .3.925310 MD Ramos [facility] 2023-05-24 2023-05-24 Akila Hamilton 1.2.840.1 [id number] 11 [id number] Univers 00:00:00 00:00:00 Only 76294.1.1 ity of 3.412.2.7 [place] .3.485905 MD Ramos [facility] 2023-05-24 2023-05-24 Orders Akila Ko 1.2.840.1 [id number] 11 [id number] Univers 00:00:00 00:00:00 Only 33048.1.1 ity of 3.412.2.7 [place] .3.588549 MD Ramos [facility] 2023-05-23 2023-05-23 Follow-Up Akila Rey 1.2.840.1 [id number] Univers 13:00:00 13:52:34 Pavel Holman 76156.1.1 ity of 3.412.2.7 [place] .3.131447 MD Ramos [facility] 2023-05-23 2023-05-23 Follow-Up Akila Ko 1.2.840.1 [id number] Univers 13:00:00 13:52:34 Pavel Holman 92503.1.1 ity of 3.412.2.7 [place] .3.068187 MD Ramos [facility] 2023-05-23 2023-05-23 Travel 1.2.840.1 1.2.483.106 1905 [id number] Univers 00:00:00 00:00:00 38352.1.1 350.1.13.41 ity of 3.412.2.7 2.2.7.3.698 [place] .3.075003 084.8 MD Ramos [facility] 2023-05-23 2023-05-23 Travel 1.2.840.1 1.2.101.849 3055 [id number] Univers 00:00:00 00:00:00 68124.1.1 350.1.13.41 ity of 3.412.2.7 2.2.7.3.698 [place] .3.812383 084.8 MD Ramos [facility] 2023-05-18 2023-05-18 Ancillary Akila Rey 1.2.840.1 [id number] Univers 06:35:00 09:00:00 Procedure 70746.1.1 it y of 3.412.2.7 [place] .3.479200 MD Ramos [facility] 2023-05-18 2023-05-18 [facility] Akila Ko 1.2.840.1 [id number] Univers 06:35:00 09:00:00 Procedure 72715.1.1 it y of 3.412.2.7 [place] .3.442074 MD Ramos [facility] 2023-05-18 2023-05-18 Travel 1.2.840.1 1.2.018.752 5391 [id number] Univers 00:00:00 00:00:00 32974.1.1 350.1.13.41 ity of 3.412.2.7 2.2.7.3.698 [place] .3.289122 08Eligio.Bandar Ramos [facility] 2023-05-18 2023-05-18 Travel 1.2.840.1 1.2.316.721 7230 [id number] Univers 00:00:00 00:00:00 99767.1.1 350.1.13.41 ity of 3.412.2.7 2.2.7.3.698 [place] .3.082248 084.8 MD Ramos [facility] 2023-05-17 2023-05-17 [facility] Akila Ko 1.2.840.1 [id number] 1 [id number] Univers 14:00:00 23:59:00 Encounter 80666.1.1 it y of 3.412.2.7 [place] .3.401563 MD Ramos [facility] 2023-05-17 2023-05-17 [facility].2.840.1 [id number] 1 [id number] Univers 14:00:00 23:59:00 Encounter 90852.1.1 it y of 3.412.2.7 [place] .3.623770 MD Ramos [facility] 2023-05-17 2023-05-17 [facility] Akila Ko 1.2.840.1 [id number] 11 [id number] Univers 13:30:00 16:22:43 Visit 05286.1.1 ity of 3.412.2.7 [place] .3.055177 MD Ramos [facility] 2023-05-17 2023-05-17 Office Akila Ko 1.2.840.1 [id number] 11 [id number] Univers 13:30:00 16:22:43 Visit 23338.1.1 ity of 3.412.2.7 [place] .3.061375 MD Ramos [facility] 2023-05-17 2023-05-17 Travel 1.2.840.1 1.2.255.779 1996 [id number] Univers 00:00:00 00:00:00 98924.1.1 350.1.13.41 ity of 3.412.2.7 2.2.7.3.698 [place] .3.988109 084.8 MD Ramos [facility] 2023-05-17 2023-05-17 Travel 1.2.840.1 1.2.253.747 4609 [id number] Univers 00:00:00 00:00:00 61325.1.1 350.1.13.41 ity of 3.412.2.7 2.2.7.3.698 [place] .3.279308 084.8 MD Ramos [facility] 2023-05-15 2023-05-15 NPR EL 1.2.840.1 [id number] Univers 14:00:00 15:05:15 11532.1.1 ity of 3.412.2.7 [place] .3.086422 MD Ramos [facility] 2023-05-15 2023-05-15 NPR 1.2.840.1 [id number] Univers 14:00:00 15:05:15 61555.1.1 ity of 3.412.2.7 [place] .3.939889 MD Ramos [facility] 2023-05-15 2023-05-15 Travel 1.2.840.1 1.2.619.261 1310 [id number] Univers 00:00:00 00:00:00 70351.1.1 350.1.13.41 ity of 3.412.2.7 2.2.7.3.698 [place] .3.080206 084.8 MD Ramos [facility] 2023-05-15 2023-05-15 Akila Hamilton 1.2.840.1 [id number] 11 [id number] Univers 00:00:00 00:00:00 Only 99696.1.1 ity of 3.412.2.7 [place] .3.561154 MD Ramos [facility] 2023-05-15 2023-05-15 Travel 1.2.840.1 1.2.309.150 3635 [id number] Univers 00:00:00 00:00:00 93011.1.1 350.1.13.41 ity of 3.412.2.7 2.2.7.3.698 [place] .3.148384 084.8 MD Ramos [facility] 2023-05-15 2023-05-15 Akila Hamilton 1.2.840.1 [id number] 11 [id number] Univers 00:00:00 00:00:00 Only 89459.1.1 ity of 3.412.2.7 [place] .3.444057 MD Ramos [facility] 2023-05-08 2023-05-08 Travel 1.2.840.1 1.2.040.386 8075 [id number] Univers 00:00:00 00:00:00 24460.1.1 350.1.13.41 ity of 3.412.2.7 2.2.7.3.698 [place] .3.538904 084.8 MD Ramos [facility] 2023-05-08 2023-05-08 Travel 1.2.840.1 1.2.311.582 6621 [id number] Univers 00:00:00 00:00:00 10979.1.1 350.1.13.41 ity of 3.412.2.7 2.2.7.3.698 [place] .3.641751 084.8 MD Obrien8 [facility] 2022-08-29 2022-09-07 Inpatient ER FILIBERTO GAYTAN Gastro [id number] SLE 19:03:00 14:17:00 VANESSA 2022-08-29 2022-09-07 Hospital ER Vanessa Gaytan Kamar [facility] [id number] [facility] 19:03:00 14:17:00 Encounter Angela Malone, [facility] C enter 2022-08-29 2022-09-07 [facility] Vanessa Gaytan Kamar [facility] [id number] [id number] [facility] 19:03:00 14:17:00 Encounter Angela Malone, [facility] enter 2022-09-06 2022-09-06 Surgery Patricia [facility] [id number] [facility] 09:30:00 11:00:00 [facility] 2022-09-06 2022-09-06 Surgery Patricia [facility] [id number] [facility] 09:30:00 11:00:00 [facility] 2022-09-06 2022-09-06 Anesthesia Dilip Xavier [facility] [id number] [id number] [facility] 08:57:00 10:16:00 Event [facility] 2022-09-06 2022-09-06 Anesthesia Dilip Xavier [facility] [id number] [id number] [facility] 08:57:00 10:16:00 Event [facility] 2022-09-01 2022-09-01 Anesthesia Dannie Proctor [facility] [id number] [facility] 15:24:00 16:52:00 Event [facility] 2022-09-01 2022-09-01 Anesthesia Dannie Proctor [facility] [id number] [facility] 15:24:00 16:52:00 Event [facility] 2022-09-01 2022-09-01 Surgery Samy, [facility] [id number] [facility] [address] 14:54:00 16:24:00 [facility] 2022-09-01 2022-09-01 Surgery Samy [facility] [id number] 14:54:00 16:24:00 [facility] 2022-08-30 2022-08-30 Travel [facility] [id number] [facility] 00:[facility]00 00:[facility]:00 [facility] 2022-08-30 2022-08-30 Travel [facility] [id number] [facility] 00:[facility] 00:00:00 [facility] Results Test Description Test Time Test Comments Results Result Comments Source POC Glucose Screen - Fingerstick 2023-07-14 14:14:18 Test Item Value Reference Range Interpretation Comme nts Glucose Screen (test code = 67600-7) 114 mg/dL 70-99 H POC Sample Type (test code = Capillary 5136830881) STEVENSON (test code = STEVENSON) Capillary blood [...] methodology. Lab Interpretation (test code = Abnormal 16130-8) [facility] Glucose Screen - Fingerstick 2023-07-14 14:14:18 Test Item Value Reference Range Interpretation Comments Glucose Screen (test 114 mg/dL 70-99 H code = 36181-5) POC Sample Type (test Capillary code = 1192405799) STEVENSON (test code = STEVENSON) Capillary blood [...] results by core lab methodology. Lab Interpretation Abnormal (test code = 13465-0) [facility] [id number] 21:26:38 Test Item Value Reference Range Interpretation Comments EF (test code = 57 [id number]) PXN (test code Ryan Stephenson MD - [...] Dyskinetic3-5 moderate5 - Aneurysmal 6-14 large 15-16 hdnadrr4I imaginD volumes were not performed in this [...] 1.6 LEATHA Index (V,D): 1.8Dimensionless Index: 0.91 [facility] - Follow [id number] 21:26:38 Test Item Value Reference Range Interpretation Comments EF (test code = 57 [id number]) STEVENSON (test code Echocardiographic Report = STEVENSON) Interpretation SummaryA complete two-dimensional transthoracic echocardiogram was performed (2D, M-mode, Spectral and color Doppler). The study was technically difficult. Compared to prior study, there is no significant change. Normal left ventricular size and systolic function.LV ejection fraction calculated using the bi-plane method of disks is 57 %.Normal global longitudinal peak systolic value.There is no pericardial effusion. Left Ventricle:Normal left ventricular size and systolic function. [...] Dyskinetic3-5 moderate5 - Aneurysmal 6-14 large 15-16 diffuse 3D imaginD volumes were not performed in this study. Cardiac Mechanics/Speckle Tracking Imaging:Normal global longitudinal peak systolic value. Strain Imaging was performed; GLPS avg = -19.1%. Diastology:Tissue Doppler was not obtained. Right Ventricle:The right ventricle is normal in size and function. Atria:Atria are normal in size. Mitral Valve:Mild thickening changes are noted. Tricuspid Valve:The tricuspid valve is normal. There is trace tricuspid regurgitation. Right ventricular systolic pressure is normal. Aortic Valve:The aortic valve is trileaflet. The aortic valve opens well. Pulmonic Valve:The pulmonic valve is not well visualized. There is no pulmonic valvular stenosis. Great Vessels:The aortic root is normal size. The inferior vena cava demonstrates normal size and normal respiratory variation. Pericardium/Pleural:There is no pericardial effusion. Preliminary ReviewerSjohanna Brownlee MD. MMode/2D Measurements IVSd: 0.88 cm [...] LAV(MOD-A2C): 34.3 ml EDV (MOD-bp) Index: 61.6 ml/m2LAV(MOD-A4C): 24.1 mlLAV(MOD-bp): 32.1 mlLAV(MOD-bp) Indexed: 18.0 ml/m2ESV (MOD-bp) Index: 26.7 ml/m2 RWT: 0.41 cmTAPSE (>1.6): 2.2 cm Doppler Measurements Ao V2 max: 110.9 cm/sec LV V1 max P.1 mmHgAo max P.9 mmHg LV V1 mean P.8 mmHgAo V2 mean: 80.4 cm/sec LV V1 max: 100.7 cm/secAo mean P.8 mmHg LV V1 mean: 60.7 cm/secAo V2 VTI: 17.5 cm LV V1 VTI: 14.3 cmAVA(I,D): 2.9 cm2AVA(V,D): 3.2 cm2 SV(LVOT): 50.5 ml PA V2 max: 68.7 cm/sec PA max P.9 mmHg PA V2 mean: 51.9 cm/sec PA mean P.2 mmHg PA V2 VTI: 11.3 cmTR max selene: 216.7 cm/sec RAP systole: 3.0 mmHgTR max P.8 mmHgRVSP(TR): 21.8 mmHgAVA Index (I,D): 1.6 LEATHA Index (V,D): 1.8Dimensionless Index: 0.91 PXN (test code Ryan Stephenson MD - [...] Dyskinetic3-5 moderate5 - Aneurysmal 6-14 large 15-16 puvkzcd4A imaginD volumes were not performed in this [...] 1.6 LEATHA Index (V,D): 1.8Dimensionless Index: 0.91 [facility] FallsaPTT2023-10-19 17:28:46 Test Item Value Reference Range Interpretation Comments aPTT (test 32.3 See_Comment [Automated mes donavan] code = The system Cittadino h 29737-1) generated this result transmitted ref erence range: 24.1 - 3 5.5 second(s). The reference range was not used to int erpret this result as normal/abnormal . STEVENSON (test code This lab cannot be = STEVENSON) scheduled at the following locations due to collection/proccess ing restrictions: [facility] and [facility]. [facility] FallsProthrombin Time with [id number] 17:28:45 Test Item Value Reference Range Interpretation [...] following locations due to collection/procc essing restrictions: [facility] and [facility]. Lab Interpretation Abnormal (test code = 20238-8) [facility] FallsLDH2023-10-19 17:23:47 Test Item Value Reference Range Interpretation Comments LDH (test code = 130 U/L 135-225 L Results gre ater than 59803-4) 1651 U/L may no t be reliable due to matrix effect w ith extended diluti on as it exceeds the gift manager's recommended arrington it. Caution should be exercised when interpreting linares ch values and done in conjunction wit h clinical contex t. Lab Interpretation (test Abnormal code = 53398-3) [facility] FallsFractionated [id number] 17:20:35 Test Item Value Reference Range Interpretation Comments Bili Total (test 0.6 mg/dL <=1.2 Indocyanine Green (ICG) code = 1975-2) may cause fal sely elevated biliru bin [...] (test 0.4 mg/dL 0.0-0.9 code = 1970-09) [facility] FallsFractionated Zqqeipnkm8423-30-72 17:20:35 Test Item Value Reference Range Interpretation [...] (test 0.4 mg/dL 0.0-0.9 code = 1970-09) [facility] FallsFractionated Cxiyeyjsa8396-12-22 17:20:35 Test Item Value Reference Range Interpretation [...] (test 0.4 mg/dL 0.0-0.9 code = 1970-09) [facility] FallsUric [id number] 17:20:34 Test Item Value Reference Range Interpretation Comments Uric Acid (test code = 3084-1) 3.2 mg/dL 3.4-7.0 L Lab Interpretation (test code = Abnormal 62117-3) [facility] FallsTotal Kgtgywy2228-12-53 17:20:33 Test Item Value Reference Range Interpretation Comments Total Protein (test code = 2885-2) 7.6 g/dL 6.4-8.3 [facility] FallsTotal Hbeiati1198-26-68 17:20:33 Test Item Value Reference Range Interpretation Comments Total Protein (test code = 2885-2) 7.6 g/dL 6.4-8.3 [facility] FallsTotal [id number] 17:20:33 Test Item Value Reference Range Interpretation Comments Total Protein (test code = 2885-2) 7.6 g/dL 6.4-8.3 [facility] FallsPhosphorus [id number] 17:20:32 Test Item Value Reference Range Interpretation Comments Phosphorus (test code = 2777-1) 4.0 mg/dL 2.5-4.5 [facility] FallsLipase [id number] 17:20:31 Test Item Value Reference Range Interpretation Comments Lipase Lvl (test code = 3040-3) 10 U/L 13-60 L Lab Interpretation (test code = Abnormal 47926-0) [facility] FallsCalcium [id number] 17:20:30 Test Item Value Reference Range Interpretation Comments Calcium Lvl (test code = 68001-9) 9.7 mg/dL 8.4-10.2 [facility] FallsCalcium [id number] 17:20:30 Test Item Value Reference Range Interpretation Comments Calcium Lvl (test code = 65105-6) 9.7 mg/dL 8.4-10.2 [facility] FallsCalcium Efixp5029-14-20 17:20:30 Test Item Value Reference Range Interpretation Comments Calcium Lvl (test code = 61677-1) 9.7 mg/dL 8.4-10.2 [facility] FallsALT2023-10-19 17:20:29 Test Item Value Reference Range Interpretation Comments ALT (test code = 1742-6) 26 U/L <=41 [facility] FallsALT2023-10-19 17:20:29 Test Item Value Reference Range Interpretation Comments ALT (test code = 1742-6) 26 U/L <=41 [facility] FallsALT2023-10-19 17:20:29 Test Item Value Reference Range Interpretation Comments ALT (test code = 1742-6) 26 U/L <=41 [facility] FallsBUN2023-10-19 17:20:28 Test Item Value Reference Range Interpretation Comments BUN (test code = 3094-0) 11 mg/dL 6- [facility] FallsBUN2023-10-19 17:20:28 Test Item Value Reference Range Interpretation Comments BUN (test code = 3094-0) 11 mg/dL 03-10 [facility] FallsBUN2023-10-19 17:20:28 Test Item Value Reference Range Interpretation Comments BUN (test code = 3094-0) 11 mg/dL 03-10 [facility] FallsElectrolyte [id number] 17:20:27 Test Item Value Reference Range Interpretation Comments Sodium Lvl (test code = 133 See_Comment L [Au tomated message] 4725-2) The system [employer] generated this result transmitted ref erence range: 136 - 14 5 mEq/L. The refe rence range was not u sed to interpret this result as normal/abnor mal. Potassium Lvl (test code 5.4 See_Comment H [A utomated message] = 3856-3) The system [employer] generated this result transmitted ref erence range: 3.5 - 5. 1 mEq/L. The refe rence range was not u sed to interpret this result as normal/abnor mal. Chloride (test code = 95 See_Comment L [Auto mated message] 4324-0) The system [employer] generated this result transmitted ref erence range: 98 - 107 mEq/L. The refe rence range was not u sed to interpret this result as normal/abnor mal. CO2 (test code = 2027-9) 34 See_Comment H [A utomated message] The system [employer] generated this result transmitted ref erence range: 22 - 29 mEq/L. The reference r malick was not used to interpret this result as normal/abnor mal. Anion Gap (test code = 4 See_Comment [Aut omated message] 92723-7) The system [employer] generated this result transmitted ref erence range: 4 - 14 m Eq/L. The reference r malick was not used to interpret this result as normal/abnor mal. Lab Interpretation (test Abnormal code = 78973-8) [facility] FallsElectrolyte [id number] 17:20:27 Test Item Value Reference Range Interpretation Comments Sodium Lvl (test code = 133 See_Comment L [Au tomated message] 2951-2) The system [employer] generated this result transmitted ref erence range: 136 - 14 5 mEq/L. The refe rence range was not u sed to interpret this result as normal/abnor mal. Potassium Lvl (test code 5.4 See_Comment H [A utomated message] = 1363-3) The system [employer] generated this result transmitted ref erence range: 3.5 - 5. 1 mEq/L. The refe rence range was not u sed to interpret this result as normal/abnor mal. Chloride (test code = 95 See_Comment L [Auto mated message] ) The system [employer] generated this result transmitted ref erence range: 98 - 107 mEq/L. The refe rence range was not u sed to interpret this result as normal/abnor mal. CO2 (test code = 2027-9) 34 See_Comment H [A utomated message] The system [employer] generated this result transmitted ref erence range: 22 - 29 mEq/L. The reference r malick was not used to interpret this result as normal/abnor mal. Anion Gap (test code = 4 See_Comment [Aut omated message] 16069-5) The system [employer] generated this result transmitted ref erence range: 4 - 14 m Eq/L. The reference r malick was not used to interpret this result as normal/abnor mal. Lab Interpretation (test Abnormal code = 29948-4) [facility] FallsElectrolyte [id number] 17:20:27 Test Item Value Reference Range Interpretation Comments Sodium Lvl (test code = 133 See_Comment L [Au tomated message] 2951-2) The system [employer] generated this result transmitted ref erence range: 136 - 14 5 mEq/L. The refe rence range was not u sed to interpret this result as normal/abnor mal. Potassium Lvl (test code 5.4 See_Comment H [A utomated message] = 2823-3) The system [employer] generated this result transmitted ref erence range: 3.5 - 5. 1 mEq/L. The refe rence range was not u sed to interpret this result as normal/abnor mal. Chloride (test code = 95 See_Comment L [Auto mated message] 2074-0) The system [employer] generated this result transmitted ref erence range: 98 - 107 mEq/L. The refe rence range was not u sed to interpret this result as normal/abnor mal. CO2 (test code = 2027-9) 34 See_Comment H [A utomated message] The system [employer] generated this result transmitted ref erence range: 22 - 29 mEq/L. The reference r malick was not used to interpret this result as normal/abnor mal. Anion Gap (test code = 4 See_Comment [Aut omated message] 18274-6) The system [employer] generated this result transmitted ref erence range: 4 - 14 m Eq/L. The reference r malick was not used to interpret this result as normal/abnor mal. Lab Interpretation (test Abnormal code = 20796-9) [facility] GreerGlucose [id number] 17:20:26 Test Item Value Reference Range Interpretation [...] diabetes Lab Interpretation (test Abnormal code = 61557-5) [facility] FallsGlucose [id number] 17:20:26 Test Item Value Reference Range Interpretation [...] diabetes Lab Interpretation (test Abnormal code = 57614-5) [facility] FallsGlucose [id number] 17:20:26 Test Item Value Reference Range Interpretation [...] diabetes Lab Interpretation (test Abnormal code = 63064-9) [facility] FallsGlomerular Filtration Rate 2023-07-06 17:20:24 Test Item Value Reference Range Interpretation Comments eGFR (test code = 109 See_Comment The eGFRcr is calculated with 11882-5) the 2020 CKD-EP I creatinine equation using [...] CKD. [Automated mess age] The system which ge nerated this result transmit bell reference range: >=60 mL/ min/1.73 sq. m. The referenc e range was not used to int erpret this result as nighat l/abnormal. [facility] FallsGlomerular Filtration Rate 2023-07-06 17:20:24 Test Item Value Reference Range Interpretation Comments eGFR (test code = 109 See_Comment The eGFRcr [place] with 30043-8) the 2020 CKD-EP I creatinine equation using [...] CKD. [Automated mess age] The system which [employer] nerated this result transmit bell reference range: >=60 mL/ min/1.73 sq. m. The referenc e range was not used to int erpret this result as nighat l/abnormal. [facility] FallsGlomerular Filtration Rate 2023-07-06 17:20:24 Test Item Value Reference Range Interpretation Comments eGFR (test code = 109 See_Comment The eGFRcr is calculated with 62313-8) the 2020 CKD-EP I creatinine equation using [...] CKD. [Automated mess age] The system which [employer] nerated this result transmit bell reference range: >=60 mL/ min/1.73 sq. m. The referenc e range was not used to int erpret this result as nighat l/abnormal. [facility] FallsMagnesium [id number] 17:20:23 Test Item Value Reference Range Interpretation Comments Magnesium (test code = 70294-7) 2.2 mg/dL 1.6-2.6 [facility] FallsAmylase [id number] 17:20:22 Test Item Value Reference Range Interpretation Comments Amylase Lvl (test code = 1798-8) 24 U/L 28-100 L Lab Interpretation (test code = Abnormal 69961-6) [facility] FallsAlkaline Dbwxtrwlsmw6987-51-65 17:20:21 Test Item Value Reference Range Interpretation Comments Alk Phos (test code = 6768-6) 161 U/L 40-129 H Lab Interpretation (test code = Abnormal 10377-4) [facility] FallsAlkaline Lzoipfcdwvo6184-44-18 17:20:21 Test Item Value Reference Range Interpretation Comments Alk Phos (test code = 6768-6) 161 U/L 40-129 H Lab Interpretation (test code = Abnormal 32821-4) [facility] FallsAlkaline [id number] 17:20:21 Test Item Value Reference Range Interpretation Comments Alk Phos (test code = 6768-6) 161 U/L 40-129 H Lab Interpretation (test code = Abnormal 83225-8) [facility] FallsAlbumin Huiui0087-28-79 17:20:20 Test Item Value Reference Range Interpretation Comments Albumin Lvl (test code 3.7 See_Comment [Aut omated message] The = 1751-03) system which ge nerated this result tra nsmitted reference range : 3.5 - 5.2 gm/dL. The refe rence range was not used to interpret this result as normal/abnormal . [facility] FallsAlbumin [id number] 17:20:20 Test Item Value Reference Range Interpretation Comments Albumin Lvl (test code 3.7 See_Comment [Aut omated message] The = 1751-03) system which ge nerated this result tra nsmitted reference range : 3.5 - 5.2 gm/dL. The refe rence range was not used to interpret this result as normal/abnormal . [facility] FallsAlbumin [id number] 17:20:20 Test Item Value Reference Range Interpretation Comments Albumin Lvl (test code 3.7 See_Comment [Aut omated message] The = 1751-03) system which ge nerated this result tra nsmitted reference range : 3.5 - 5.2 gm/dL. The refe rence range was not used to interpret this result as normal/abnormal . [facility] FallsAspartate Aminotransferase 2023-07-06 17:20:19 Test Item Value Reference Range Interpretation Comments AST (test code = 1920-8) 23 U/L <=40 [facility] FallsAspartate Aminotransferase 2023-07-06 17:20:19 Test Item Value Reference Range Interpretation Comments AST (test code = 1920-8) 23 U/L <=40 [facility] FallsAspartate Aminotransferase 2023-07-06 17:20:19 Test Item Value Reference Range Interpretation Comments AST (test code = 1920-8) 23 U/L <=40 [facility].Serum Hoetgjqbbl0231-61-76 17:20:17 Test Item Value Reference Range Interpretation Comments Creatinine (test code = 2160-0) 0.70 mg/dL 0.67-1.17 [facility].Serum Ajkdljqsud3112-56-44 17:20:17 Test Item Value Reference Range Interpretation Comments Creatinine (test code = 2160-0) 0.70 mg/dL 0.67-1.17 [facility].Serum Cgvxkivkyz5023-49-97 17:20:17 Test Item Value Reference Range Interpretation Comments Creatinine (test code = 2160-0) 0.70 mg/dL 0.67-1.17 [facility] FallsHBV DNA [id number] 17:03:01 Test Item Value Reference Range Interpretation Comments HBV DNA [facility] Undetected Undetected IU/mL Result in log IU/mL is (test code = Undetected. 60553-5) ----ADDITIO NAL INFORMATION---- ----The quantif ication range of this a ssay is 10 to1,000,000,000 IU/mL (1.00 log to 9. 00 log IU/mL). Testing was performed using the yoselin HBV test ([employer] with the yoselin 6800 System. Test Pe rformed by:[address] [address]Lab Director: Franco Saxena M.D. Ph. D.; CLIA# [id number] [facility] FallsHBV DNA [id number] 17:03:01 Test Item Value Reference Range Interpretation Comments HBV DNA Qnt-Hussein Undetected Undetected IU/mL Result in log IU/mL is (test code = Undetected. 50899-8) ----ADDITIO NAL INFORMATION---- ----The quantif ication range of this a ssay is 10 to1,000,000,000 IU/mL (1.00 log to 9. 00 log IU/mL). Testing was performed using the yoselin HBV test ([employer] with the yoselin 6800 System. Test Pe rformed by:[place] [address]Lab Director: Franco Saxena M.D. Ph. D.; CLIA# [id number] [facility] FallsHBV DNA [id number] 17:03:01 Test Item Value Reference Range Interpretation Comments HBV DNA [facility] Undetected Undetected IU/mL Result in log IU/mL is (test code = Undetected. 03663-6) ----ADDITIO NAL INFORMATION---- ----The quantif ication range of this a ssay is 10 to1,000,000,000 IU/mL (1.00 log to 9. 00 log IU/mL). Testing was performed using the yoselin HBV test ([employer] with the yoselin 6800 System. Test Pe rformed by:[place] [address]Lab Director: Franco Saxena M.D. Ph. D.; CLIA# [id number] [facility] FallsDifferential2023-10-19 16:40:27 Test Item Value Reference Range Interpretation [...] 0.3 % 0.1-1.5 IGRE % c ount 99303-2) includes Metamyelocytes, Myelocytes, and Promyelocytes. Neutrophil Abs (test code 7.85 K/uL 1.95-7.25 H = 751-8) Lymphocyte Abs (test code 1.04 K/uL 1.01-3.24 = 731-0) Monocyte Abs (test code = 0.81 K/uL 0.24-0.85 742-7) Eosinophil Abs (test code 0.02 K/uL 0.02-0.50 = 711-2) Basophil Abs (test code = 0.03 K/uL 0.02-0.09 704-7) IG Abs (test code = 0.03 K/uL 0.01-0.12 60521-0) Lab Interpretation (test Abnormal code = 49792-3) [facility] UsvhpmOdnlvtovnzir5440-59-99 16:40:27 Test Item Value Reference Range Interpretation [...] 0.3 % 0.1-1.5 IGRE % c ount 76839-5) includes Metamyelocytes, Myelocytes, and Promyelocytes. Neutrophil Abs (test code 7.85 K/uL 1.95-7.25 H = 751-8) Lymphocyte Abs (test code 1.04 K/uL 1.01-3.24 = 731-0) Monocyte Abs (test code = 0.81 K/uL 0.24-0.85 742-7) Eosinophil Abs (test code 0.02 K/uL 0.02-0.50 = 711-2) Basophil Abs (test code = 0.03 K/uL 0.02-0.09 704-7) IG Abs (test code = 0.03 K/uL 0.01-0.12 61813-2) Lab Interpretation (test Abnormal code = 10304-8) [facility] FallsDifferential2023-10-19 16:40:27 Test Item Value Reference Range Interpretation [...] 0.3 % 0.1-1.5 IGRE % c ount 53629-1) includes Metamyelocytes, Myelocytes, and Promyelocytes. Neutrophil Abs (test code 7.85 K/uL 1.95-7.25 H = 751-8) Lymphocyte Abs (test code 1.04 K/uL 1.01-3.24 = 731-0) Monocyte Abs (test code = 0.81 K/uL 0.24-0.85 742-7) Eosinophil Abs (test code 0.02 K/uL 0.02-0.50 = 711-2) Basophil Abs (test code = 0.03 K/uL 0.02-0.09 704-7) IG Abs (test code = 0.03 K/uL 0.01-0.12 88807-9) Lab Interpretation (test Abnormal code = 13486-0) [facility].ICA2975-78-49 16:40:19 Test Item Value Reference Range Interpretation Comments WBC (test code = 9.8 K/uL 4.1-10.5 6690-2) RBC (test code = 789-8) 3.85 See_Comment L [Au tomated message] The system whic h generated this result transmitted ref erence range: 4.30 - 6 .04 M/uL. The refer ence range was not u sed to interpret this result as normal/abnor mal. Hgb (test code = 718-7) 9.6 See_Comment L [Au tomated message] The system [employer] generated this result transmitted ref erence range: [...] L [Automate d message] 786-4) The system [employer] generated this result transmitted ref erence range: 31.1 - 3 5.2 gm/dL. The refe rence range was not u sed to interpret this result as normal/abnor mal. RDW-SD (test code = 46.9 fL 37.5-49.7 25941-0) RDW-CV (test code = 15.8 % 11.6-15.5 H 788-0) Platelet count (test 257 K/uL 160-397 code = 777-3) MPV (test code = 10.0 fL 9.1-12.6 83411-8) INRBC (test code = 0.0 See_Comment The INRBC (instrument 31956-4) NRBC) value ref lects the enumeration of nucleated red b lood cells contained in a 200uL sampleof whole blood analyzed by the instrument. Thi s value maydiffer from the NRBC value repo rted in a manual differential,wh ich is based on a 100 cell differential. [Automated mess age] The system [employer] generated this result transmitted ref erence range: 0.0 - 0. 1 /100 WBC. The refere nce range was not u sed to interpret this result as normal/abnor mal. Lab Interpretation Abnormal (test code = 47270-5) [facility] GreerHIV 1/2 Antigen/Antibody, Fourth Gen [id number] 04:57:48 Test Item Value Reference Range Interpretation Comments HIV Ag/Ab, NON-REACTIVE NON-REACTIVE HIV-1 antigen a nd 4TH Gen (test HIV-1/HIV-2 an tibodies were code = [place] [address]-7) laboratory evid ence of HIVinfection. P LEASE [...] pertains, or as otherwise permitted by ruby Cavanaugh general authorization f or the release of medi davide orother information is NOT sufficient for this purpose. For additional information please refer tohttp://educat [employer]/faq /[email or web address](This link is being p rovided for informational/e ducational purposes only.) The performance of this assay has not been clinicallyvalid ated in patients less t pineda 2 years old. Lab test p erformed by:Lab [facility] : [facility] [id number] [place] [address]LJMHPLOU LARRY MD,PHD. [facility] CenterHIV 1/2 Antigen/Antibody, Fourth Gen [id number] 04:57:48 Test Item Value Reference Range Interpretation Comments HIV Ag/Ab, NON-REACTIVE NON-REACTIVE HIV-1 antigen a nd 4TH Gen (test HIV-1/HIV-2 an tibodies were code = [place] [address]-0) laboratory evid ence of HIVinfection. P LEASE [...] pertains, or as otherwise permitted by ruby Cavanaugh general authorization f or the release of medi davide orother information is NOT sufficient for this purpose. For additional information please refer [email or web address] ion.[employer]/faq /[email or web address](This link is being p rovided for informational/e ducational purposes only.) The performance of this assay has not been clinicallyvalid ated in patients less t pineda 2 years old. Lab test p erformed by:Lab [facility] : [facility] [id number] [place] [address]OMMSQLOU LARRY MD,PHD. [facility] FallsHIV 1/2 Antigen/Antibody, Fourth Gen [id number] 04:57:48 Test Item Value Reference Range Interpretation Comments HIV Ag/Ab, NON-REACTIVE NON-REACTIVE HIV-1 antigen a nd 4TH Gen (test HIV-1/HIV-2 an tibodies were code = notdetected. Th [place] [address]-5) laboratory evid ence of HIVinfection. P LEASE [...] purpose. For additional information please refer [email or web address]/faq /[email or web address](This link is being p rovided for informational/e ducational purposes only.) The performance of this assay has not been clinicallyvalid ated in patients less t pineda 2 years old. Lab test p erformed by:[facility] : [facility] [id number] [place] [address]CEFHCLOU LARRY MD,PHD. [facility] Complete 2023-07-04 21:16:41 Test Item Value Reference Range Interpretation Comments EF (test code = 60 [id number]) PXN (test code Sondra Joyner MD - = PXN) 10/17/2023 Echocardiographic ReportInterpretation SummaryA complete two-dimensional transthoracic echocardiogram [...] [facility] Complete 2023-07-04 21:16:41 Test Item Value Reference Range Interpretation Comments EF (test code = 60 [id number]) STEVENSON (test code Echocardiographic Report = STEVENSON) Interpretation SummaryA complete two-dimensional transthoracic echocardiogram was performed (2D, M-mode, Spectral and color Doppler). The study was technically difficult. There is no comparison study available. Left ventricular systolic function is normal.LV ejection fraction calculated using the bi-plane method of disks is 60 %.The right ventricle is normal in size and function.Right ventricular systolic pressure is normal.There is no pericardial effusion. Left Ventricle:The left ventricle is grossly normal size. LV ejection fraction calculated using the bi-plane method of disks is 60 %. Left ventricular systolic function is normal. I WMSI = 1.00 % Normal = 100 Normal GLS Segments SizeX - Cannot 2 - 1-2 smallInterpret 1 - Normal Hypokinetic 3 - Akinetic 4 - Dyskinetic3-5 moderate5 - Aneurysmal 6-14 large 15-16 diffuse Cardiac Mechanics/Speckle Tracking Imaging:Normal global longitudinal peak systolic value. Strain Imaging was performed; GLPS avg = -20.5%. Diastology:Indeterminate. Right Ventricle:The right ventricle is normal in size and function. Atria:Atria are normal in size. Mitral Valve:The mitral valve leaflets appear thickened, but open well. Tricuspid Valve:The tricuspid valve is not well visualized, but is grossly normal. There is trace tricuspid regurgitation. Right ventricular systolic pressure is normal. Aortic Valve:The aortic valve is not well visualized. The aortic valve opens well. There is trace aortic regurgitation. Pulmonic Valve:The pulmonic valve is not well visualized. Great Vessels:Aortic sinuses of Valsalva are borderline dilated. The aortic root is not well visualized. The inferior vena cava demonstrates normal size and normal respiratory variation. Pericardium/Pleural:There is no pericardial effusion. MMode/2D Measurements IVSd: [...] 31.9 ml/m2RWT: 0.41 cm TAPSE (>1.6): 3.4 cm Doppler [...] 2.3 LEATHA Index (V,D): 2.2Dimensionless Index: 0.83 PXN (test code Sondra Joyner MD - [...] 2.3 LEATHA Index (V,D): 2.2Dimensionless Index: 0.83 [facility] [id number] 17:14:20 Test Item Value Reference Interpretation Comments Range CA 19-9 (test code 06525.0 U/mL <=35.0 H Results g reater than [...] . Lab Interpretation Abnormal (test code = 17737-5) [facility] Virus Antibody 2023-07-04 15:25:47 Test Item [...] [facility] Virus Antibody 2023-07-04 15:25:47 Test Item [...] cons ideration when interpreti ng the results. [facility] 2023-07-04 15:25:47 Test Item [...] [facility] B Surface [id number] 15:24:51 Test Item Value Reference Range Interpretation Comments HBsAg. (test code = 5747) Non Reactive Non Reactive [facility] B Surface [id number] 15:24:51 Test Item Value Reference Range Interpretation Comments HBsAg. (test code = 5747) Non Reactive Non Reactive [facility] B Surface [id number] 15:24:51 Test Item Value Reference Range Interpretation Comments HBsAg. (test code = 5747) Non Reactive Non Reactive [facility] FallsTSH2023-10-17 14:23:22 Test Item Value Reference Range Interpretation Comments TSH (test code = 1.75 See_Comment [Automated message] The 84164-4) system which ge nerated this result transmit bell reference range : 0.27 - 4.20 mcunit/mL. The reference range was not used to interpr et this result as nighat l/abnormal. [facility] FallsCEA2023-10-17 14:23:19 Test Item Value Reference Interpretation Comments Range CEA (test code = 11.2 ng/mL <=3.8 H Reference R anges:Smoker: 0.0 2038-) - 5.5Non-Smoker : 0.0 - 3.8This test is measured by electrochemilum inescence immunoassay on Opal Yoselin immunoassay isabel lyzers. Results obtaine d in different metho ds are not interchangeable . Lab Interpretation Abnormal (test code = 85628-9) [facility] FallsUrinalysis Microscopic Exam 2023-07-04 14:11:38 Test Item Value Reference Range Interpretation Comments UA WBC (test code = See_Comment Some rep orting 25461-3) parameters with in the Urinalysis test have changed due to the implementation of new instrumentation in the [facility], [facility] greater sensiti vity of measurement. Urinalysis resu lts reported by the [facility] enters using existing instrumentation , as well as Urinaly sis testing perform ed manually or by backup methodology at the [facility] khadijah l remain relative ly unchanged. New reporting cristal eters and units will not be reported for [facility]. [Auto mated message] The sy stem which generated this result transmit bell reference range : 0 - 2 /HPF. The refer ence range was not u sed to interpret this result as normal/abnor mal. UA RBC (test code = See_Comment [Automa bell message] 99918-4) The system whic h generated this result transmitted ref erence range: 0 - 2 /H PF. The reference range was not used to int erpret this result as normal/abnormal . UA Mucous (test code = TRACE Not Seen-Trace 04049-3) /HPF UA Bacteria (test code 1+ NOT SEEN /HPF A = 02405-8) UA Squam Epi (test NOT SEEN None-Occasional code = 99039-6) /HPF Lab Interpretation Abnormal (test code = 95547-8) [facility] FallsUrinalysis w/Microscopic if [id number] 13:55:12 Test Item Value Reference Range Interpretation Comments UA Color (test code = 44392-6) Yellow Straw-Yellow UA Appear (test code = 65350-6) Hazy Clear A UA Glucose (test code [...] NEG Lab Interpretation (test code = Abnormal 42565-7) [facility] Outside Interpretation 2023-05-31 14:43:38 Test Item Value Reference Range Interpretation Comments Materials Received (test b1lzvJYhVWQytREpIgOn code = 9973) VJSpBAPel4spFJWuxMZh ZzEwMzNcZnRuYmpcdWMx HZBeZvFej7esw693mMCv x6woQJMxPeR7pDScGIPo rLHcG706AEPfZCzoq5xp h9PsPAXhaWGid3B6IUEH kwgaaXp4vDwpE67rv7M4 XmojS3oqPQRzNPZqQ1Cq RM5oCUElUyt6MES3WIH9 OGRzMBVgY8XkCD6eRMRu eLDeJLy4x6xdjFnlZHUq CRH6c5dwOWwmvtPxFC0o rc7xoVj8w2cvplZtTTEi HPVodPTHGAFmG4HjbVeo Fz5wqEu6jZskDlkwFZM5 Jqa3RU8blz94uaw9lAjg BQXaszzeGjP6OBsyMYEz vfhtOLk1OJnsFEOktWat MFxtYXJncjcyMFxtYXJn qBK7GXMloSZmD4AmZXHi PKwqKURkpev0XaYhGg1g qCFoaMbjORtvu4zwi3wu xVXpLss4LOPkIrWvInat ZDfpn7Ehi2hqHMSyrn4i BIY2lHXajNkrr3W9qNXo SNVzbDUeccIrFODchd32 fBQksNAjvEZwud5ewyYc wIMzlYZgNFP5wDUvxhFf DTOfbBBmNKJxFR6qtQSd THVteR3rbrscLLXqDqGe ngspKFGliKyqctVeIo3e wKzxQFO5NGncP7dhkT2d XdT0CXhgR7yflC6hPGv1 ZVbdwRJ3KFJgiW5eOL7s xhzrt7toNyRtNL5tjjct e7ukRzXqNT4dtzk2s5bg LQO4YOfhHSGoIgX9kzX7 NDBcaGVhZGVyeTcyMFxm d384MUG1HnVbGMVcj1Ko X3UxuWioO81qnPumX61q HNZgrSutoI2lhYsslH7d MfKuDxUqSMi6ae69VNv7 hpinoLqwGUi4sxFhYJOj NLA7AHCjhJSnFVWfF1h9 exPwLQUhGVJ5WQChiNCc IRMtA4h7oxVrGGO8ZJs4 cnBhZGRmdDNcdHJwYWRk YjBcdHJwYWRkZmIzXHRy vYXasJUirFVwzE3ewXdd PIOwjOQhgV0cEVW4FMIw cmgzMjBcdHJoZHJcbHRy gx52DFIaqeGznAVapOsa cSQyRKA3NEHjNEHbJZJo EHV4HCAoCvChfbEwRDvf bGJyZHJiXGJyZHJzXGJy WJS5DROjQwAzplDiWPzu bGJyZHJsXGJyZHJzXGJy DDH5HUZzXrClirFzTIkd bGJyZHJyXGJyZHJzXGJy LAQ2FTWmQaBilnOkAPfy bHBhZHQxMFxjbHBhZGZ0 K6yshZFsRYVkLYptpTFw OMUvQ4eftQWhZElvEFRj cGFkZmwzXGNscGFkYjBc U6xfGSRpJrWuG6TxqLo1 MDAwXGNsdmVydGFsdFxj mABpNQS7NLEvJXHaOEGf CCZ6CKVzArSgteWaUBdm bGJyZHJiXGJyZHJzXGJy NCW0PTJlJzEzbcSiCKfy bGJyZHJsXGJyZHJzXGJy QYJ6FEKbEwGidtBzXXeg bGJyZHJyXGJyZHJzXGJy RJX3LMAiKzKgcxMzMIhl bHBhZHQxMFxjbHBhZGZ0 F7koyWYuZVFwNSprkIZj UBFuU7vhfAXqJBpwBZAs cGFkZmwzXGNscGFkYjBc V4ggNHHjWaYdM5DagKb5 NjAwXGNsdmVydGFsdFxj tFSaPJI5TISfCUFfVGYo WUA5PPMnTgZqneGlDPnb bGJyZHJiXGJyZHJzXGJy XJW2QGCsRbDyrdEqAVql bGJyZHJsXGJyZHJzXGJy GLL9NLObRrOiqmHtYLwr bGJyZHJyXGJyZHJzXGJy KMV3ONSpJjIzgjNvJZmc bHBhZHQxMFxjbHBhZGZ0 Q8zpwZDfUQWuJVsktMMk JWNnK2xszRYqZIsgBUJv cGFkZmwzXGNscGFkYjBc T8vxONOpGkOfO4KafFv5 ZnQgFJUdjwNudU81Evdg u5LhSNTjNZQ3PFjlBWye bFxwbGFpblxmMVxmczIw GJrwtzhaIVLwMYzrT0fv DiNgBZKajMmtQKrbb5Df XGYxXGNmMlxmczIwXGIg LIMsEQUbuJ6cPyhlS4Bv mR8rCTjbQjskR5jpHJWe g2KkzY9iPMilfUTmjuhf MVxmczIwXGxhbmcxMDMz ASycE5hhVpSjTNUuvTfn PDqfz2UpDVGmVZXqJfpq fvRsBEp3meTcZVLjgHkq oLXpOSeuoaOiyUkex9Eb upZdbSldAGOnDPl3nvHj qpseyWm3tDGjlCrgMHLb xMmoxF2pKnEpHtMvVExc bGFpblxmMVxmczIwXGxh mxukUYJlDMbqQ9odQtFi MPGdxTfdIPyey3HrQDDh JPMhOayjyhNwBQKgP05e bGVjdGVkXHBsYWluXGYx XGZzMjBcbGFuZzEwMzNc aGljaFxmMVxkYmNoXGYx YQlhA4buIcPxU8ReVQKb ZjOciTEiY7euT5HfoDrc YXJkXGludGJsXHNzcGFy VKI0pMDdznJsjIMamHDc QILdHKipVNT8tWWaoxfq aPGgedboDXgvyzG1CYAy YWluXGYxXGZzMjBcbGFu ZzEwMzNcaGljaFxmMVxk YtViLZWrGIqlF0ziNkEm O5WkTRZxYcSaUvVXRTQp aXZlZFxwbGFpblxmMVxm czIwXGxhbmcxMDMzXGhp Z0dxOgSpKFYyrWdrCLxb f0EoXTOlRUYxShxdgkMk AOa1fgImKLPopUtabM34 Mpalae69WWHvh7kzURKf D8RuzXYvVAEqpYGhZCqi MDhcdHJwYWRkZmwzXHRy cGFkZHIxMDhcdHJwYWRk ZnIzXHRycGFkZHQwXHRy nHLsASP3C0y1cgTzHGIe QZv8nyShQBZwWcMwxZIn DVE6DSz2ZoeotrY7bOOi F1v6XsclqzMbSHggnLFt uz19VDFhylXysJOxgHuk lPPeUZS6IMEwTTVuDJHv TJV5RQTxRxKkdeZqEQgz bGJyZHJiXGJyZHJzXGJy JPE1YOGoGeVjijFwTQed bGJyZHJsXGJyZHJzXGJy YOH7VBNyVbJvvvHrWWed bGJyZHJyXGJyZHJzXGJy RPN8VLPnWmOpgpFqTLbc bHBhZHQxMFxjbHBhZGZ0 H1ybgVXaCHQvLDrvwFSh YLAhX1zndMNkUSzcXVRw cGFkZmwzXGNscGFkYjBc Y4dtELQvOeWxF5InzXj4 MDAwXGNsdmVydGFsdFxj nJEtMWK5GIXsNVLjBBKq KCP3DWYwZpVqinKyZFzk bGJyZHJiXGJyZHJzXGJy MVO2TVItAlMbxnVcINmw bGJyZHJsXGJyZHJzXGJy KFF3UCWtUpHasvFtFPjr bGJyZHJyXGJyZHJzXGJy LAL9AQBuBgMwfyKjYTtr bHBhZHQxMFxjbHBhZGZ0 N4hewLCiCGNgWDvgiIEs JNHhB6kcsLIpSDrvWMJc cGFkZmwzXGNscGFkYjBc K5itCUQyDbJbN5HkqQr1 NjAwXGNsdmVydGFsdFxj vJVrNWO9ANJyWABrLTFk PFK6SQOnFnGtlcGpOTep bGJyZHJiXGJyZHJzXGJy PHQ1DDNsZfUwkwBjMNla bGJyZHJsXGJyZHJzXGJy QRS3LKDfHtGysyJxTFiq bGJyZHJyXGJyZHJzXGJy PYU0EEWdRmZtayGaKDdy bHBhZHQxMFxjbHBhZGZ0 R6onmDQcHANwDUimkJCf CAXwF4wfnSJhGHgyIEPj cGFkZmwzXGNscGFkYjBc X6wrHYWxZdDzR7TbyUq2 MmStHNFherGwjD75Hyqc o6EvQZVuODV2RFwwLQlp bFxwbGFpblxmMFxmczI0 XHBsYWluXGYxXGZzMjBc bGFuZzEwMzNcaGljaFxm ADefFqRzUWZuWKtnA1ao OnKeH4OuQCNuArTvIH5e KGJuGBCzHyW3EODlIRQS DOVsABCLT3OKLmixYXEL J3VcmKmhqW6pWrIcKzTa WFrxFA9nJSYlS2jptAAa QLNyILJhF5fhKjEuiF0u aFxmMVxjZjJcZnMyMFxs dHJjaFxjZWxsXHBhcmRc gC64Cecsx1KaICQoTHE5 MFxzMFxxbFxwbGFpblxm RGfiznE5EPOdWFvmCDBl XGZzMjBcbGFuZzEwMzNc aGljaFxmMVxkYmNoXGYx DEftC7edUyWnB1KiRYEf MjAgMTIvMTUvMjAyMlxw bGFpblxmMVxmczIwXGxh yeokOAElURjxL7wsLrNt BFQrvPzoMCfyc5BdUJGv IENeZzkprzAtMLl8xyZu XGNlbGxccGFyZFxpbnRi yXngm5TzhmQihIouDWAy XHFsXHBsYWluXGYwXGZz RgXkaFcvrT8vObVhXqBw HCqaJO2vXXVjJ5vuxAAe CKFoFPBtQ6epZbTngJ2u aFxmMVxjZjJcZnMyMCA5 NoBeVjBzLkBxiFfbcV8v NiIrQbIcMBwlYW1uQIXc Y3uvrWAfLVWbQFDtA4hv WhZseJ7ftOrnUDwnRaRw ZnMyMFxsdHJjaFxjZWxs JDzdsBZfAZZnc4txCBMg UNTphGQoVCQ0vJQimeGx qRijoIdmpN0nWiJxFgNi NFxwbGFpblxmMVxmczIw GWhjkksrQSMuJQzeO0kv ZoHhWBOmzAynRSarm9Xr XGYxXGZzMjBccGFyfQ== Diagnosis (test code = h5umuCDsFZTrlROfATHf 34) T6fxfdSiMXHdvBHbJ2Rz tzetIXbsXL9vHB3vgKhl hKJnrXPnGQBhKaZbp5xy s018cDJys0xgAMXStyym qQv6zEmrZ02fl9I8Qrtt E7mvFCOeLWgdDFYhEDqs yHIfLSc0NCWroCNgfeEy TkWdWBGhhUDikED8WTCh BH1uirxuHScyAJgkLHRt imF3SPEeqBNoW4EwKCNz FT2ciwgeSSV2ZEreOWFh KYU2AwQnUKLyj1Jayzp6 MjBccGFyZFxwbGFpblxm czIwXGNmMSBPdXRzaWRl IChEMjItMDIzNjUsIDIg Z5UoTVDsKcyVG9eDURQt AKHRXrtnT31xwCXznTDm TY7yGDKxUlL8IlAwOoBy EwibGOXtF3AgJUBbfocm zRapWDbxjN63ZcJjUR2l IFBhbmNyZWFzLCBoZWFk YKVwYEFfPHAutD2pXI7x XYRoJSDtb2EojjF6zC4v D0Nru2TpqVdrrTFvBSMr qaWIBwBDI7wPUZLQBOeR IERJRkZFUkVOVElBVEVE LPDBP7GWARKEVPOAH1QZ QkCTPh1EOU5dNMdGDCVi F69NKVTWIYorbCEhoX== Comment (test code = d2xtdCHxOAXeoILhJNSr 9868) N9spulItVDQnaBSxX2Og camtFKxlIX0iRB5zxYyl qQSpwANlATZmWgCyd7hl g043eTLta4vgSUOJctsc dBj1lPkjV37ib9A1Sqqz Q95rwOZhCRD7VIGkUNSe uHVtOQCvJUQ9UZWtdBUg C5svLBWxKI0oobwwSWpk QPlnAZMrkKD6YHCbiKBh B1WkQLDnSLcyMURfseb0 HiFzLl3wkYDrfQmdXZav YXJkXHBsYWluXGZzMjAg JsXvxCKoz0SbkZttosOe YZHzVVE0Xx4yaXMyHOHg g5BmpiC6uNW0EztwDPZ6 [employer](s) (test k9ngtEMzMCQytABrNZHx code = 9841) L3zgneYzYNZncWRjL7Rb eqmdSBzaSO0cQM0jtAbh jODmgWXbZDKoMwUcc2bp b834mEAcu2qpUIJXlpnq oLh3wYjoN29sg1R3Osyy W53uzNRtFFA7UGHeYPEh fSDhAGAbQOT5ESLigREn V6hrTMUlDP0wuuplZGfy PUnvIQTthNJ0GBImnIIa I7TeGJNzCXsuSUEeewc2 DrIzMb9rfOIukCtfWNju YXJkXHBsYWluXGZzMjAg VDogIEExXHBhcn0= Disclaimer (test code = c9iaqIPmXYSikXMoJtQt 9844) UROsQSBjv4fuXAKcfKNr ZzEwMzNcZnRuYmpcdWMx EUUcPsNhz0efr234hMVn m3iqNBEkYqG1wCKbOZCu dZNpI882JSNgNSidl6bz h6ZjQLFjkGSpm7E3WSKJ lererHv7zXjzA48iz0B5 PrljJ1qbGRCwTOWgP9Ta UZ7dVXUnVsb5JYQ7ADY7 MIPeVPOgI4CgPX0cLEYd hYVrDZz1i1fmrPgvGZWe MGY0g9wzZYclrfSyOR5a lf7xnRm0e1drfhIpARWj HCQpoBWEIICiF9EpqGtq Lm6szVs1gXavKwvrEBO0 Ymg7PK7iqt81rso6uMpm EAAvycivPwF6ZAuhQUUb sxbxLGa0OEoqMMFjiUF7 FKXccYVrP1FcMDYbEH7z rpr3EZU5DCdlGWYkVlY7 NDBcaGVhZGVyeTcyMFxm k280WPM4BdHaZY4uL1Mb u9S5hZ9orVWuXSGvoBMx PxMpLKWust2ifPHfTAex j3AsENV4lxZ2rDDelWOr ATGlBF24Ooofj6YsHnae LCE2VEGtujLle9Sep0nl EvXljtYsU0ryU7CcJRAj OVYzZBCxDzXmqrIat9En k2OvwYYqtYl0u0cqJQBd LQXosNxbk2geODY0GHOf R1K0uFQal5llGAujDZTz pHB9gtJ3JZYukWRhD3Fs mL0mRYZiLR1mokq5a6pt GDG3UVhzXVFmVdM5irO6 NDBcaGVhZGVyeTcyMFxm a768BDW6LuCcHXJom1Ic G5GidHepY81qjZqgR97f BNClyMstnU2fxFwbrA4m ZjBcZnMyNFxxbFxwbGFp vosuLEgihcJ5DHqvnmeh ELQtDKklH0zyAaXgJLJo zEmpUQlof8YwIZZbHOYb DpipchS2WDQVi99cTSIa j7OdIOAaeW6zyBLeMJyd vzIplCU0EHguuoCiPzQp idZvOVRirH8cDHIjFZ8m ZAHgwlOxdh0byiTpARVa BMTfG3VfqlnonDbdbjVk IMRlua7lzcQeSVY3PUCG UW4QSDKiPISqq13hZVMl oUdkzJ1crRDhyrTtUORi o4VwrA7slNNMPOQkK9sc DC2pAXijs7YzfNBkkOXa aVN7XNNia9ItVdPgltMp iHTsnCNbF7DovJtyN6zs MDDxTOXzqpIwvNHzj9Xx HABtmTC8nRLzLS6NQqKD v56iNEBzAZIRdpPdFNBv zOacgAH6vpC7xD5oQdWR ZiBhcHBsaWNhYmxlLCBj v138gm4thsS9SZOzRACy uwgio6NaQDCtWHBvaT73 PLWyQNXkyf4buodhnROs hjHrD2Iozee7kS1vXGAa YWluXGYxXGZzMjJcbGFu ZzEwMzNcaGljaFxmMVxk EoOqAXBdYObgV5arExDh ZnMyMlxwYXJ9 [facility] Interpretation 2023-05-31 14:43:38 Test Item Value Reference Range Interpretation Comments Materials Received (test k1kowKElEOXfpQSuGzVg code = 9973) IFDuNMHzo0osHOHicNUv ZzEwMzNcZnRuYmpcdWMx GADfDaVxr3pop845xVNt v1tbXWUfCjC2yZRqBJCw yUTsE575MYVsERjlb3hf s7FcBIQbcYBsl2D3SJDJ dkofrEo0oHovA02zq8P3 ZopcB5fsGENdZNTpM9Jg KH3zKTZuSos4KDL6LKO0 DHTdLTDxT8OtWA7kVVPa rGFuOJy8f7dgxNnyGXVg QEA4m2mcIEddtuZjPT8v xv0zxJj4h9xpvmRaDVVi QMOgaWBJYPNjL3NvqEza Hp6szRe0iYirPbbfEXN0 Imb1SG7zjd00ngq9jXua YAGtlsbmWeJ8VCafUBIo mdllFBa7ABljTKWetOxz MFxtYXJncjcyMFxtYXJn aND0XGIwaVWcM5AsYIEd YZqkYLZvsmh5FzCjVa0k cIRniVgiWLcaw6pnn0lw lWSxRqw9HJZhBcKeVoba JQrcb1Kcb8xrKUPcvc9k BGK0hRHnvZqzl3T5pEFl IWDhyUGeupSzRNNhoq47 qEEhtXFcnNXrda5akgRz gMJucLEdIJO3pFUztyKc LSIsbJCaBRTzDE1hdCFd GRTnuC1owkvfHJDmFeNk gqvvBJPwrBcbfdPnIg6i iYquDFJ9DKohT1lavT8h YdD2NBeqI6jhfC1jKDp3 HTjftPN6VOEzlY0hSM4y jgaqf9pdFiZeST8rynjg h7qpBfAqOI8ienw3i6ok UNA3CTqnJPClPoO8ohH1 NDBcaGVhZGVyeTcyMFxm b100XRO7UfJkFFMtp0Oe N2TrkAtpE90vyCioA40r IUOzdPplxT0wbGzryE4b EcVhQvEhZAn3dl38AIc7 hkpvfGvlBRg4bgAzWPKz FRZ1GORhaMWdWAQgJ0g5 wkIoPBWrROP2EHTpxCOa GLBdQ3p6whWsJBV7GQn0 cnBhZGRmdDNcdHJwYWRk YjBcdHJwYWRkZmIzXHRy fOKugWUhlPYggG4meQqb FWNfvITzlY3zVUG6DNMb cmgzMjBcdHJoZHJcbHRy pa26EQTehxMibTCdpEvg oYGzHMP8TIMnMXMuJOQr QOR8BEAwXsZrhqKdYDcy bGJyZHJiXGJyZHJzXGJy ROA0CDTpGtTbsnBaEXdg bGJyZHJsXGJyZHJzXGJy VFR3JFScPaZdjbLvOIfj bGJyZHJyXGJyZHJzXGJy APE0JJPlTrQnmsRrLGbt bHBhZHQxMFxjbHBhZGZ0 Z1ktqNOyJSUdKDectLUx BDXkE5zgmLOkYAjnGYZj cGFkZmwzXGNscGFkYjBc R8wnXDWqTkYwS0VlkDu8 MDAwXGNsdmVydGFsdFxj xZElNGR6UPKxXHEvEDTd LUE0OVTdHoXocaWxDDyv bGJyZHJiXGJyZHJzXGJy XXZ4DUZdBoRcpePbWJiz bGJyZHJsXGJyZHJzXGJy WNK6ZOTsXrDsrzXaXSph bGJyZHJyXGJyZHJzXGJy LWR6QSUrEpDwtwTpLAex bHBhZHQxMFxjbHBhZGZ0 Y6uqxOKvEWFgSTerwNEd OZHpH4jnxPHyPZdvMDKj cGFkZmwzXGNscGFkYjBc S3vgZMQyFhVxX1HgqPd6 NjAwXGNsdmVydGFsdFxj aFVtEKP5BCIzNYPgNNNi FUX4TMSqJaLzrfVmAFpf bGJyZHJiXGJyZHJzXGJy KUQ9JZWdQtJelhPjORdh bGJyZHJsXGJyZHJzXGJy QLV5OKRdIjLppiSlNKjl bGJyZHJyXGJyZHJzXGJy QYY0GLEnDpTkmmUmCHlk bHBhZHQxMFxjbHBhZGZ0 F2puvOEjHVBsLBrlxJOc CGItD7vzjIYkQOksQZPi cGFkZmwzXGNscGFkYjBc B7gyUYOjKvAnN6SalJo5 KiOlZAOgqaStbV54Skwy k3HtUBVeINM0DUsnWOrf bFxwbGFpblxmMVxmczIw HCzihbytMNCwDNnkI2ye HdHuDHTyvLknFVfyb9Hc XGYxXGNmMlxmczIwXGIg WGKxLFMexT9aMlyiX5Tm fJ1wGCbzUryvM7vdYGKz z5WiqU3bJRmncDSndwhn MVxmczIwXGxhbmcxMDMz URopN7faJdRcNNTevKeh ATrhy9PiQHEtEHQcQlbk fmPrEEr6nwBdMGSlrVlb jRXzREsexoKmuSrcp0Rs vtGvxFntNTTqWRd9rqNa ymljrKh6cUDnnOguPJYl yOrgeS2mSzWkHgMpOUww bGFpblxmMVxmczIwXGxh jpbkZFZeXSsrW0ktKnNw XDPxrBugWLhax5WdSEXr FJOzBksvmlKjRSYbN85v bGVjdGVkXHBsYWluXGYx XGZzMjBcbGFuZzEwMzNc aGljaFxmMVxkYmNoXGYx KPpqM3reGkHeZ7EjHREs WoLxpXBgE9frX7CjiDhi YXJkXGludGJsXHNzcGFy TCZ8rDGzjxKjuVCgwHUc NQByDKveOUD5tNRmflot wPFqstirWWhitkJ5LQUh YWluXGYxXGZzMjBcbGFu ZzEwMzNcaGljaFxmMVxk AvOnVPVqKIceS7msJvFt Q4DfQKCzItClXwLNGGNf aXZlZFxwbGFpblxmMVxm czIwXGxhbmcxMDMzXGhp B6dqAgSfTLLsyQjrJRyn v9JsDNJrJKKzWoyfdvMp YBo3gsAwCSEibDgifV98 Curhmt61HKBay1ytKMCj L8IdpFNjICCplOEhOPxb MDhcdHJwYWRkZmwzXHRy cGFkZHIxMDhcdHJwYWRk ZnIzXHRycGFkZHQwXHRy jEHxHQA8X5i0koFzOXIa PVz4cyCkCBEdZwFksBGn FAX9BTw1UbhvxyT4zENz T6h1MzpyfyZeQJjxqUKx qk41HVYzqgBzaIRcbUgi nFTzVYR5BGIsOYCmDEYe FBH9AUFhCkMbwmHkIEtg bGJyZHJiXGJyZHJzXGJy ALL0CWOmNoLhgbZbPIzv bGJyZHJsXGJyZHJzXGJy MIW4RZBlIrAqrrGmXHpa bGJyZHJyXGJyZHJzXGJy QZE7OJWvXwZvfaXwDKcd bHBhZHQxMFxjbHBhZGZ0 F8kxdNUgSIUdLWafqLZe REGxP1wxqLTwLTprEJDx cGFkZmwzXGNscGFkYjBc T7sjMZGfTkNaG3YifLz0 MDAwXGNsdmVydGFsdFxj xVIhDYM3PGJwBVDyNGYg XJT7DCFsTkFpunNmIMca bGJyZHJiXGJyZHJzXGJy SOM8QFNaEwMljcBpVRez bGJyZHJsXGJyZHJzXGJy IKW4FIVkVwYljxBoWJno bGJyZHJyXGJyZHJzXGJy KTQ4HLFjKdEuecHrFFzb bHBhZHQxMFxjbHBhZGZ0 E8usrTNfOESgCZswmQEo RXDtA2pisGAxPFfhRNMo cGFkZmwzXGNscGFkYjBc N1xfBHEqMhWsR0GjkIv5 NjAwXGNsdmVydGFsdFxj zDNeUOU3DLHzSIRqZGWw JXV7LVLfTeDsrbZfREbs bGJyZHJiXGJyZHJzXGJy ZHX5ZOEgYpAqkmEwHQdw bGJyZHJsXGJyZHJzXGJy VZO1LEIbBfIcmoHsKMpt bGJyZHJyXGJyZHJzXGJy JWK8JAHwWzJrwgLiIJfj bHBhZHQxMFxjbHBhZGZ0 U1aanEZyNQHzMWyipRZf QGGbC9kkzYNdHWodDRPd cGFkZmwzXGNscGFkYjBc U5wnXXKbJpKlU5NzzGz6 ZeGzLQHfpxLvxU56Kmak s4MyRDQzICZ0WNgiCTma bFxwbGFpblxmMFxmczI0 XHBsYWluXGYxXGZzMjBc bGFuZzEwMzNcaGljaFxm PHrzAeDnKLRgTGmgQ9gr VnUdX2EaXSBfYtUuHE9c USOpKYRiPpZ7MJLgCCFL CMUjIYZTC6RKRttmBFHB B6YtaSqdiA9qJpUwMqVa UBveEH2ePBJpL0sxdPKc JRWbQQKlQ0irPwCcfO0r aFxmMVxjZjJcZnMyMFxs dHJjaFxjZWxsXHBhcmRc nX03Lpheh4NjKLCtLBD1 MFxzMFxxbFxwbGFpblxm SSzrdmB7TBOzUDjnDKPf XGZzMjBcbGFuZzEwMzNc aGljaFxmMVxkYmNoXGYx HLnnD7dpUxBiG4FrQGAe MjAgMTIvMTUvMjAyMlxw bGFpblxmMVxmczIwXGxh blryNHMuBFauB7wgNnVx JGFfrQhwTVglf2MlYHJo ZDRyKzuxogHuWCs9cpVo XGNlbGxccGFyZFxpbnRi yXitc8DbdeEvaSuoJZCn XHFsXHBsYWluXGYwXGZz OwPulKcxhA0dUkYpPlEl LJaqWM0iRAEqW3cnpEGu OAEzSDYlI5ufSnMlpP4h aFxmMVxjZjJcZnMyMCA5 GiSsReLmKxBscVlvoM5b WbNtEhEgHDnyNO5cMQLl B9lmlZGbOQRuKJVfH0ir VuVbdJ4xhPimZJyqWcZi ZnMyMFxsdHJjaFxjZWxs OPhsmRPmIVLrl5zpVKLg YDWjlJBkWBH7gEPqneQm fSyupRvuhP7rXqApYkBb NFxwbGFpblxmMVxmczIw TTjorktyIMTaFZxsO7hx QzUuOFDkdIoeSVgqy7Ft XGYxXGZzMjBccGFyfQ== Diagnosis (test code = a0emiKEvBHHtcOCiRCQj 34) T4hmirCgBOUphENtY4Iy ycrbAVvbNN0pMF9izZhg aYDqkVBrQTRwRhTpz6ia b357gNObz1cuZBJBajpr jBv7fKysF42ez9C9Nhrs Q8rsEWBzDKufWJNzZQsx tOJpXTn0LGVpnPKkrnQf MuDqXZIcrIZobMY6BMQy JI7yvqabGIxvJUjtQKHf lhV6NGRznWOqF5GfOXYd UA9daifwELX5TDyaXJNn SNR7HgEpWZYln3Vmcrs3 MjBccGFyZFxwbGFpblxm czIwXGNmMSBPdXRzaWRl IChEMjItMDIzNjUsIDIg L0VdWMSdDxuUM8gCXKDa HVSBHhoxK67tuIYgeVRu YT1wHODxRnF0WyXjPgIc YlrkWAUrJ4TgXWXprraj tNncHOxzzT93HtNjMQ1x IFBhbmNyZWFzLCBoZWFk GQYjFNYkOWEinN9mTS8w UNNaEUOvh7PyhyF8xQ6b N0Wrq3YgvOuldIJcHIJf fhXPDrTSF8uEZOIGYVyH IERJRkZFUkVOVElBVEVE LLZII4JOSUWOEKNNZ4QK WuOCAp3IYZ3pWAmJIVBs T48VDMHGCWfmuQNkyG== Comment (test code = o1qcgSZcSGQsmOZiHSEc 9835) X4eoloIsCMQupHRoV0Jt rhzlLFrlNI7mFZ9poWkp lELasYNgKDOiEhQfu6kb u215gDOwp4ihTFHTabkb fYx7sSoqJ14in7E1Okpo V70ivJUbFNQ0ONPmNNWa vUGyNXRoIZO2MXRnpWFj X7xlJCClAY0qrkmrDUqz IAdwLXKawZP9TJSuvUOu R3KiYJQmBVuxMQMqjln9 VqYiYe6duPKuwIafROzx YXJkXHBsYWluXGZzMjAg PcSjcFBlt6MvgBnynfZo HJHjUJO3Yx0vcKZhKHTy v1UqwaT0xIP5TjncWDJ2 [employer](s) (test b0omiJTyIWTnmKSyQSDj code = 9841) O4fzohHvUABwpENaA7Jm cdedPBasWN4sTG7hvClu mZZgkYEiTNVjEaIvl6lz q131vRWao9xyXBAIgqut rRn4zYyhS46st7S1Slfo T04vgFVpTNM0TMGeBMAy pPSeXVZyHYT0EBFsaNCg I6gtMKQqBA0gmdlvVFac SIqvWXEqoWC5EDAyjQRm X5WhBAUnSCguPREztkn6 MyPcHj3vtUXttYodMKpv YXJkXHBsYWluXGZzMjAg VDogIEExXHBhcn0= Disclaimer (test code = a7vhyCWiBOWpuPHtQhKo 9844) UXTxUPHky1giSRVohDQh ZzEwMzNcZnRuYmpcdWMx GZXmEcUlk1nhd969jRUo b0jjCNDpBfU4kXGeBECp tPYvL221DGRkTFkkt6ay l9MbZQJtnSWbq2L0RTPF zaeqiBi7tTonM62fk4Z9 JcwaI0jgXKMtHUMuU2De DF4qIZHmRdm9NAQ1LHN2 ULIhLFEhA6XiEC5zAHUa vSBcLAt3b7yrhBohFJXz QDQ3j3iiSBsfdqScJN7d tr8inEz6h6nqjqVlWWCe OBMkoVLTYDGmV9NoqAob Sg4zrPx1sNprIxrqQYC0 Aql7NE5rzr53aqm8tXnp SQMhfjhzMjF6BYpgVONb fkdaQLa7VTyaQFGshDM2 TUElkIJpC6DdJFGmBR0y kea5BAW8QCayRGAwFdC9 NDBcaGVhZGVyeTcyMFxm z199SDM9JoEaVX0lA5Jw l0F2bN2kmBDeJNUufNRf OdUkMQCwth5oyZMwQXpm y8DpEFR7loG4yZCbdFVh VXOlNE45Kygmd1RqBtbh WGM4TNAxcbPon8Doq4nk BgUdstPgQ1lvJ7YsBJPc ISOvQEHkZuEqreVng2Ft e0IljFSfaCf6q4pfJGTr PUAxjGgxb3qoDVW2ZRBj X1S9aWSpd8gvUPpbHTAb bQI5gmV4OEJjcSXtY2Fe nD0zBWImUW6hfpb6u8ya WQY0NUwtRKHnJhD8srU9 NDBcaGVhZGVyeTcyMFxm f454GSE8MxWrJBCsc1Hh J7QgsDpaA80imPtvN06y VBVksLhelL5gtOkyuB6k ZjBcZnMyNFxxbFxwbGFp mtwbVZijtxA7CMavuqpu DSHaVIfvH6wwPuRoEMVf dLwdFIiqv1WxHFQySFTs GijbkqM3PKEIt22bVNNq h7FnLFKdfY6giZTnPGuc haVvfHQ5KFlbygVcJkEz zfXvNSOnrA1zFBYtJG0d FGQggwVqqs4dpsVgTQBt AOLxD4GxogyyjYqxsuKj JWQtxt2zffYxSKC7IOWW IV7WKGCoTXRnd95qVSWu uDgwhP3jpSOqiuUjEFLb l4QuyJ7qxMPMISQfU8dk BA2kOLkse3FblOAqvXQq hGR0OQXbe2KwKzRgcfYi aSFjhYMuT8GkdOfeA2qu FZQbDVQdwmXuvHMxs7Jw RQPbxDO3gCDqQL3WKdII j46qXBNnDPJFgjHkALBg oJmiyLS3dtX8aX9cCyNV ZiBhcHBsaWNhYmxlLCBj e903qd4eyhZ5IAQuYMId xhxsm0PxXUBmDOXidS94 IMTpGNIqab0drnvwiJJa zqLcM8Uodyi8lA3dWJDa YWluXGYxXGZzMjJcbGFu ZzEwMzNcaGljaFxmMVxk FeQyGTTaECagG2rxMoDz ZnMyMlxwYXJ9 [facility] Interpretation 2023-05-31 14:43:38 Test Item Value Reference Range Interpretation Comments Materials Received (test a1nrhEPiDNCrkYCmHgNu code = 9973) KOEwCAEbt5qlKAZwpNLx ZzEwMzNcZnRuYmpcdWMx TTAiRbQxz0gmj083bVCk u7yaSRLgSpR4vNQyPPYi sALmK873WBAaDTwmk9eb x3QoDHXryARdq5H0RYET ndttmXz8dXyuH90xi5Z8 FchgJ7jfSRDxDNIfK9Uk LV9xLQTiAaa4XEG9MUF4 HHSaJRKqF4HkTQ4yMDNv mKDmTTs6h0exaIgmEUOd ZMJ3k3boAVjjibVoEU4o dd2ecXk8o7qkloWjJSKs SYRdcVNJSUFeJ8VvcEvx Fg7qvKb1eQypPnrwGFY4 Bof8WX8vdi33rki1mVdz MTTeqlrjZaV5WXunXMBy zijaCPi1POxjLSUjwBut MFxtYXJncjcyMFxtYXJn wVD7OHQfdETpD4GbTRUx NIhySIMwwfg4NrGxDn1s hSWmvZkrFVuco1sww2dn aIBcMga5IGGrVgPuBhen ZDqya6Pnd6ogHOXctn4r RGO3uMYwtGgpy4X6rDEj INEofGXxakIrTGCyay29 fGMpnSGajAKkkp8zowSn eTWmuSYzUEV8fTYeioEm ASWzdMNsSUHpFW1gpRXz FGCwqX0ebryvRMXnEhEl ptbhBJXfcAbadlOmHt5l kNtqAEA3JSzcM2eebW8p GkV3XZgzO7ytkC8gQMv6 GEznzEC6WCYtfJ9gMM6a cbygt6bxHaBoLO8plgls b9akKrNtQS9cevf4r7na HTC7DPttPMYmImM2bnE5 NDBcaGVhZGVyeTcyMFxm p359XVR2SbVsIZRat7Pr Q3SoqIrbF08cyOibN68g DVYnuOejdN8cdCtvhD5f LdVkAqPhHGo1kl02MTg2 yvwsyOqxTTm0fsNyMCXb IBU2HNOpvGTxYFMmL2o1 glQuRMEcOWU4DEErtSRr FYOsK2k2otZoGCZ9INt4 cnBhZGRmdDNcdHJwYWRk YjBcdHJwYWRkZmIzXHRy uLFufUQykMEsoA2vlWhg GKEkqKPnpA7iCJB8XSLl cmgzMjBcdHJoZHJcbHRy zi94FODbcoExvJSihUql eYFzUQO8DMDuHZQmNTJh ZAM9URRpQlUdmwMpQAli bGJyZHJiXGJyZHJzXGJy SUE6AVBzKqHdldXuCMxp bGJyZHJsXGJyZHJzXGJy NDS4OGUfYaZfxuAyOQcf bGJyZHJyXGJyZHJzXGJy SMD8CALmJoYuzvFtKYjs bHBhZHQxMFxjbHBhZGZ0 B7eyeDZrLGOkLGrwgQYx CNVkY0wwoBWvEQsvJQVv cGFkZmwzXGNscGFkYjBc G2zkVHRmVcQpK3EatRv0 MDAwXGNsdmVydGFsdFxj bZPzRKM5ENBkHUGyCEQx USV3UHLsNyTswbEjCBwd bGJyZHJiXGJyZHJzXGJy NZH0DMWuGoJdhhKpFQuh bGJyZHJsXGJyZHJzXGJy MGD8SXVeDjQbyiUfCWsw bGJyZHJyXGJyZHJzXGJy IXT5KPOrYyUdjmJcKAap bHBhZHQxMFxjbHBhZGZ0 T8lrtKLwPMUiELnvmTMe DYEyJ2pewTVcFHykCXXw cGFkZmwzXGNscGFkYjBc S5zqWPJmGgHdO0BnqGp6 NjAwXGNsdmVydGFsdFxj yANuPKW6TVDeNGFfIHCe AFQ3ZRLxYtNlwwKoPCtx bGJyZHJiXGJyZHJzXGJy VLX6GGSkJbQnmdRmODfc bGJyZHJsXGJyZHJzXGJy RDR0VEXiVyXtabDbDPwd bGJyZHJyXGJyZHJzXGJy ZWH2ITZrJlZjfkNuGEbe bHBhZHQxMFxjbHBhZGZ0 Z9vgkGQkRBVjIWbbiRLg QQAeD4nypYIlTNvuWAMt cGFkZmwzXGNscGFkYjBc L7cvNAJdUuSsE9SdzWy7 RaJwVQMauyEcvW68Kjmx p1SgUAHyGQX5NAamUGlt bFxwbGFpblxmMVxmczIw YEeihkkpGNTxQCprI6qy EaRrVKCrrNwxQSmmx4Pa XGYxXGNmMlxmczIwXGIg CMEuOATnzD1yIkyfB8Wp qK9uNGjzTealP9ocXZSf o4WrcY6qPKaeuRNoaztd MVxmczIwXGxhbmcxMDMz UZhjK6laEpBmLEKodTov IApbp1JoMDNpNWRcJerq jnEeRMe2vfXuHYPkmFsb ePFoREpptvUqwPbot9Yx ogIdpGoiZTMhXXh6ygFq ozmwbEo7tELykHwrAQKd mOehsF1gDcJfNhXnNJkm bGFpblxmMVxmczIwXGxh albpCSBzVXdnP0btRwSi MSWkpQxwXIuts6YqPORo CTVgFtqhurNzQRHhE46w bGVjdGVkXHBsYWluXGYx XGZzMjBcbGFuZzEwMzNc aGljaFxmMVxkYmNoXGYx ILxzS1awCkCiF6WcMKYn SiCnfWHtE5toV7NzfQfv YXJkXGludGJsXHNzcGFy UWD2mUEuidRghGHfwBNl GJHxSSusIVY4gYOolxzs lPYniikpVEcwyvZ7XJCx YWluXGYxXGZzMjBcbGFu ZzEwMzNcaGljaFxmMVxk QwVrMFRpAOpoT3onTcCz P5OzRHQhQoTfFyJTYBTb aXZlZFxwbGFpblxmMVxm czIwXGxhbmcxMDMzXGhp O7evYyKqKUZosPnyLVpr x2WmAMSfFFHnUryagtFu XMu0dpBeWZUkfAfbmG81 Tgfboi41KFXud7cwDULe V3IykTTtNEPjyLPmLOuu MDhcdHJwYWRkZmwzXHRy cGFkZHIxMDhcdHJwYWRk ZnIzXHRycGFkZHQwXHRy qLPiSVL7C6x8znAfASDa HJk0fnCjZIKbJgQdkEYv CVU9DWh9VbmyezA2dVRw J0w6FmzygtDcNLmzlYPf wj13TIDzxuSmqASblLlq zUTeHSP6IAOeMKLgJEGu RXA2YFOaXtLdvsItZByu bGJyZHJiXGJyZHJzXGJy IVC7IFRwQlWgmfTwYKqv bGJyZHJsXGJyZHJzXGJy NUI5TYDuJgYrwlBmIKan bGJyZHJyXGJyZHJzXGJy JFR1MVHjHfChgsHwBZns bHBhZHQxMFxjbHBhZGZ0 V4alaKYjLHGvTCscnCGo DENgT4qvrIKaCZghIIWg cGFkZmwzXGNscGFkYjBc T5wvUUKqGgEcW6GfvQm4 MDAwXGNsdmVydGFsdFxj sLOmWLP9BWPyTNGuKXLb QGC5ZSVuScQqinRmXSgf bGJyZHJiXGJyZHJzXGJy DHM3RTXvUgYileKlVHja bGJyZHJsXGJyZHJzXGJy CBY6MOSwUiUoghIuURmi bGJyZHJyXGJyZHJzXGJy ULO2GRAsZeFyogVuQEby bHBhZHQxMFxjbHBhZGZ0 C0bjzDRdTYOfDQylrFMo MZHqE5jrnFXtBGkkWDHu cGFkZmwzXGNscGFkYjBc C9ooOXZjWhWfX3IpzLl0 NjAwXGNsdmVydGFsdFxj hIEwKHP4DGJcKWAkQTAf ODK1VRJkIvKqsyCtSJwi bGJyZHJiXGJyZHJzXGJy PEE8OJQcVpJxzfXbLIro bGJyZHJsXGJyZHJzXGJy VGU1QSHzHeOhvpYtQUrq bGJyZHJyXGJyZHJzXGJy TWV0TWEsGxJuedEtVNqi bHBhZHQxMFxjbHBhZGZ0 O8nhzXDxRGPrJVjatLQz OLAqF3iuhCNeKUytHIPg cGFkZmwzXGNscGFkYjBc I7crDYRfBnNmZ1TizXf4 EjDdKVZpxxLvbY42Doqe b0SvFQRbATV4WYvtAJgk bFxwbGFpblxmMFxmczI0 XHBsYWluXGYxXGZzMjBc bGFuZzEwMzNcaGljaFxm LObcQwXvEBFxXVclG1fc GhKgE1GqCVIvOqCfIJ8n ZFLvIPSnVdZ9MYZmBCAB DCOeWIDEJ6WYMlniBANP T8HwvGownX0xVuByIaYi YIngII5jFLDfU1uzoTUd GIXtEQXwS3lxTuKlmR9x aFxmMVxjZjJcZnMyMFxs dHJjaFxjZWxsXHBhcmRc oC38Tasij4IsOCTlLMC1 MFxzMFxxbFxwbGFpblxm SZogmaN9CWCcQGmoPKHg XGZzMjBcbGFuZzEwMzNc aGljaFxmMVxkYmNoXGYx GZxnS4yqCoZtW1DnWIMh MjAgMTIvMTUvMjAyMlxw bGFpblxmMVxmczIwXGxh ejugIKEfPWviT5kjCtCp JRJjrXoqHCqel1UmBWUt MMTcBfuqtjNlUJn1ydKi XGNlbGxccGFyZFxpbnRi qGcmy4KqemJwpMqqGLDv XHFsXHBsYWluXGYwXGZz ZsDvtIksqR0wLjRyBtEu RZtcQQ2vIGRhE2dvqURo IAAeDIYaB0asKkYynA9f aFxmMVxjZjJcZnMyMCA5 YhPrYrLnGqEssPttlV0u SiNhKnEeZQetVU7mZRZl C4bsxTCuXDVvPBNtM8ul SsPbrV9snEvtZQnpBeDl ZnMyMFxsdHJjaFxjZWxs RLjtcLVzGYCdj3sgKQBg PMZriGVaCEN3bFOcnsFo uYovqHqvxB7qIrZxLoUk NFxwbGFpblxmMVxmczIw FSlyhossNEPwZGwdH7fh UmXdPWYpuNvvKOfbg5Ee XGYxXGZzMjBccGFyfQ== Diagnosis (test code = b9criLXqGWJrgBWsFWDc 34) Q4wjhsLkJRUduWDkV5Zh imilNPjdUI4bKD3wwYzj jBXjhGVaQAKfVqKlp5ss r957iZAch6lpZVCYolxd jTv1wSdvO06mk5Z8Bhmx H5aqVQEiCJxjFFKaGPai zEKnLZt1LLZnfBKpewDm MsQvVYHrgBRhmPA8NKYo AE8yfmmcWPugCWzcORXy ybM1BIPzuAZyU0YpECMl MV0ymazjHIQ2XFzjRAPp RCV4QoQqBQJxz7Vttil7 MjBccGFyZFxwbGFpblxm czIwXGNmMSBPdXRzaWRl IChEMjItMDIzNjUsIDIg J8OfHJDfUpgFQ1bELPXd WBONGpebQ99nmKNzbWNl TS7rGFHqOlR7NfFpKdOv BcjxMQHgT5FbHSWlkofu pZrsQHnfaA09RtWsFN0w IFBhbmNyZWFzLCBoZWFk JIMoHVGfAHWyxX6hMT7b SAEhSASoy1DtpjJ8eA1s X0Zhb2YuiDytxPEhIIKg bsYZNqZXH2nFEDJQQNeA IERJRkZFUkVOVElBVEVE OXOAK2FBGONQAMPPX6DK AiTFYa6QOI4zHPmDZBNk E59IPIQBFHcfeYHarM== Comment (test code = q1lfbJXqOPFurXLmQCYt 9835) W7pkcmQcKUDxtGYpR2Zp uuuaNDzlNB6eUH5mqPqc bODyyFYsLVXzEdDcq8bn l041jUSbt1pvFALAwarf gBh5hRqvD81qj7I8Gcco Q25orFSvMRL0NTTrISRg lEUuUOJmGXY3PTNcyJLi Z4djVVUfWR0owhbjLSmd NIxrWHVmsCF9BZSosAVx L4NsYZNgSHrgPMArsjo6 LfVlMf6xzZKpdVbvWEtr YXJkXHBsYWluXGZzMjAg DhTmaQPyf2TmaNrbiaMa VAAfLYL2Gk3iuDVjXMBo t1DidyO3iGZ4ZocoRIX3 Biomarker Block(s) (test i8cnnSEbQNCywGPmGPYl code = 9841) K2ecebMoFXDezSMqY0Eh ngajEVswBS5iRD4dfSyd uOMoyIIeVRBbJiPvm0ly r934fFRal0ymUSRJzmwe vNz9aMjpR22kb4N3Zcdh K40tvEUdEFO3GDLkTMYh wFCrPFQqWTY7QHTgcXZc Z1ouSSJfKW2gbrwrRXvk YAusOVNjrEX5GWJndLDw Q6PqRBQeTSavLIStetz0 ZcAqHo3hqHIisZvuPOzz YXJkXHBsYWluXGZzMjAg VDogIEExXHBhcn0= Disclaimer (test code = e4cbeTXdDLIwtYCxVoXr 9844) CWRoDNAnx1giXFVrdQWm ZzEwMzNcZnRuYmpcdWMx ENLxNpIwc7fef999pLRx k7loSSCrNeB9uAMcEQBj cHUoF619CETkVIjer1ma v6SnIJDprXEhv9S7DPJS umjloYh7yOxuE44se7H5 TnsmC5kgXLSiKWVrC4Fy JI6aNIIrUbk4CMH3GDA4 POOmYFTzD6PlLS9hTREz uHNuWRu4r2wpfZuqQDYc NUF0g4gdGTrjhcRqQF7n lx1sjRz2q6wmfzHlEJHo VPLljNZIDEAfF9QitBbh Ly7rqHu4vUzxNnqmYTJ2 Ixf7LC8sgt03ibg6rEnt ZUMjxtcmWaM0VIuoPPHn xuybTNp4CYizJZLngZD2 VUNyjWLhA1QvEXSnJM7d sxj8MVS0ZZzmSJAkAqR0 NDBcaGVhZGVyeTcyMFxm a333KHJ1HrDuDM3lM7Vf e0C1jB6xpPUsQEWckUKz MgDwEDGunk2hbAVdQQhc x0BjWZM1vvI2hJSetHLp VLYcUH37Hdlsp7EhKhbr HRM7QBQlstQst3Pkb2rj AfFvwtGuE5ltR7DqBREk FYVqOKRmYwTdmeOkw4Au j1MwcJGpgAe6a0amHBCv GMTzjFxsi4gbPKP1ONAt H1Q2nZCje5zkVCtqAHOv zSQ7ieL7DYNkfWZjK1Fi fZ0bSWBqXY9tynd1d6ti ADB5FMtyRBXbKrM4zoP7 NDBcaGVhZGVyeTcyMFxm q740DKG2FeJrAFDrn6Hu E4CkjBggQ68ooZngJ15c VJKvxPgzxH0dzVshgE9m ZjBcZnMyNFxxbFxwbGFp pfbuJKyqsrI4QMigxrnu EAEoCNtwH5acWaPxYZFb nKzgUHqio3OjSTJnMZEq CglnubN0ISFNi28tUCRl c2XuQMCmxG5ioPYsVJnr btLktPA2IChvjgRzIoRw ezBmUSOteC0qFCGyIS8x SLIoebOuhu2ywmKhSCFc MYPaZ9FjqjtdpGsqleZt CUWrcr1vreBbAVM5PJBV SX7GOTCaLBEti50yRZSn gHpcfC0duKKjkxHzEVWm o0OezB6wwRWFKRSoZ0xp XE1lDZuib1XdaYIreZSz yTA1MAJab4XwUfSgnxWa bSNuiCVoZ8PvyRkeO5in ZDZnUDUpaiDjrEVer1Gf UTXeeNX7pTPsHV0KIoHW k31qLUKaIZIXlhMcKKVg lGmosOT2ukY1sD8wRlPJ ZiBhcHBsaWNhYmxlLCBj w091sv9qauA3HIFdCSEv pwbgp5JiSXIeOKYhmV99 LDChSRKdcr9muxervTRl thJuE1Xueng5pG6yWFBq YWluXGYxXGZzMjJcbGFu ZzEwMzNcaGljaFxmMVxk YbUqZERkGVlsU2otZxIx ZnMyMlxwYXJ9 [facility] NGS Blood [id number] 14:38:47 Test Item Value Reference Range Interpretation Comments Molecular Diagnostics (Received) (test Yes code = 8400) [facility] NGS Blood [id number] 14:38:47 Test Item Value Reference Range Interpretation Comments Molecular Diagnostics (Received) (test Yes code = 8400) [facility] NGS Blood [id number] 14:38:47 Test Item Value Reference Range Interpretation Comments Molecular Diagnostics (Received) (test Yes code = 8400) [facility] (SCREENING) (anti-HBc total Ig; HBcAb total Ig)2023-05-18 14:19:27 Test Item Value Reference Range Interpretation Comments HBcAb. (test code = 5742) Non Reactive Non Reactive [facility] Total Ig Core Ab (SCREENING) (anti-HBc total Ig; HBcAb total Ig)2023-05-18 14:19:27 Test Item Value Reference Range Interpretation Comments HBcAb. (test code = 5742) Non Reactive Non Reactive [facility] Total Ig Core Ab (SCREENING) (anti-HBc total Ig; HBcAb total Ig)2023-05-18 14:19:27 Test Item Value Reference Range Interpretation Comments HBcAb. (test code = 5742) Non Reactive Non Reactive [facility] Surface Antibody 2023-05-18 14:19:07 Test Item Value Reference Range Interpretation Comments HBs Ab (test code = 72837) Non Reactive Non Reactive [facility] Surface Antibody 2023-05-18 14:19:07 Test Item Value Reference Range Interpretation Comments HBs Ab (test code = 12714) Non Reactive Non Reactive [facility] Surface Antibody 2023-05-18 14:19:07 Test Item Value Reference Range Interpretation Comments HBs Ab (test code = 48270) Non Reactive Non Reactive [facility] 10:51:33 Test Item Value Reference Range Interpretation Comments Case Report (test code Medical Cytology = 104) Report Case: [id number] Authorizing Provider: Effie Pablo MD Collected: 09/01/2022 04:20 PM Ordering Location: [address] Received: 09/02/2022 08:59 AM Service Pathologist: Jose Grover MD Specimen: Common Bile Duct DIAGNOSIS (test code = [id number] 3220) Szl7kyb6IncLAblICrAGdx qZEupgFxyy93tYQ5kM75ZA 8jPYNyHpE8JXPcsoP8Ygz9 SEKsOCYzeXXmC905n9zcp0 eadkYhySY8nLviBOIrwmzu RvK9YSdzBDGvszfzXMu2KA rcGQXhfXA7KIAtyWNpE6Kp CMEpXB9vqjz5ONM3ADucYD NaGhX9UUEviTPcMRFvgBfy KDlew088ZGR7DyOcNPDtap ItaSzrbV2lTaAaOGICJ00J M22kKmwCEJYABAUKBXOGFB PAJV8DMSzWXFJDF2KXTfVv OlxwYXIgICAgLUFUWVBJQ0 ZTGMUgypJnZXNkD6TybnGy z5KiZJMzrFIwFCxnj1GqcK BnNH3wXTS6gZQjL3KjEMQ6 V4KniQRtlYj4eGQloEXeJA NlbGxzIHByZXNlbnQuXHBh cbHoONBeLjAlp7rbq9VwYI XhFH6aL71bFfufzAKjjWA1 gDGpQNUryPAcYCxlbR6ug9 Tgoo2hmJVzBRRdJJWKY8Oy eIq7XBIzjOl0vMJgKEOuQD QsoGDuKDHxFCPkH42zgDGm uP8jbWDkLQTcJnMdlHLeTB CzBmg0DAMguKYxFBZjZsAd Z4cgenarWdJQGTGdz9taN9 msjZHQaLOgF3DoJQmplvDk IWqxHDppVtLgRGl7UH34Os YxXHBhcn0= COMMENT (test code = j7eeoLLlWQDnnBH8VxDrBA 7017) Xxb4ekb2LraVGdbZReOQgx rSQaoaSjcs77eKN0jU80RA 0vHFCmGeY2TJRdjrU7Qct6 ZTXiAFFteTAjM852k0osg5 rxoyGzkOB0gGumXOGfccpn GlQ6NFmkQXRkjgooCDz1JA geLKKqiAU2ZXTnnUZzO0Ku VOWeNL3asuj0KNK3AYxkRY OaJyV0JBDysIPdWFXvmKty NDvrv784YZO2PmAhRMOtfs SxdElswR4jJmNxWHSRV1Wx zJUsoKLejeJfT9uvkAThaX QdsJZjw2SgzBkqONj7EIO3 sEKfD3EjTDakpLehGZ56I4 neMPGnLM3xHSJgRR6bjmOe ZR56K1zeKLHweWVkKqFshf ZaCYSui8TyYFuulGknELF9 M4ZzuNQcvMa8nAYtvXJxYR cfDYFfPP9oFNQrKW54BXWh lXb8qZPexUT0HKOiKUEdmC DrzgEmlLF7mILsNXUcARRy B9Gbago7UXQlh67dCI9wCI HvoLaaNzcuW2ooqCYegWOy cGFyZWQuIFBsZWFzZSBzZW Biz2JcK9wvLWldwBF4fZ8g y8d7EWCmu6JrIYWyXHMiFo Y6WKWrds7= CPT Code(s) (test code i9yqxNZwZAMeiYV1SrJdFR = 335) Sph0cqy9XjeTTrfKIlKZwo rZLpzdZhly11qVR1nX80BZ 0fRJZsQkE7QEJpkyX7Wat2 CKSvVKPsxCCoM136c4pvo3 ulilEimYL7pGvzQWPmkitv PxX4FUynYHMoalyzGFd5XU zgHZYflLF4ZJNqhWQlZ9Cb VISdJI9psyc4ULV6AEiiQP RjHcT4XOTpvOWmOJMnvOse WHlxe717RED2TcJtLJAmpn FglQxbvP7nFcQuVUH0TPMv OFxwYXJ9 CLINICAL DATA (test f7aovDRcADSbuWP1FcHaDR code = 3355) Dhp9xop1MnvKUktMOmNHhr cKDwxwMeuj57vWJ9lE11MQ 0sZMXjSwE9WLXcrrC3Xez6 GNSqSDEugBGdZ406r2hnj1 vqebNrsJG4bGigOPExzwpz AtF8SGvoUPTwctqyEFv5EN meSVJvoEU4SEOpcGItJ7Oz UXPpFS4ovcn7HLK4OVllML OeHpM6NBImvCJjRQZucYgr FSjfv197OET0OxOySSUdvg OglCfxqL2wLyFjQVG5UxCR IHdpdGggSFROLCBidXQgb3 OfWNF6xIAvAGiaCHa0hZrr PQZhBAWfkfDgBPA7pPYyGF CfaP3ziCbop4VivPZeU8Vf r9FmniWkCHIfi23hdyFcVT CemB4eHH7NA4Bwy4lzh9Bw EJWlaVPfA9SkQCPeXmUbBS BgKO4lr1Ogs2p1vXTlhvTc UAxyvIM7wWFuJA9sACI5tZ JhaGVwYXRpYyBiaWxpYXJ5 WHUkeJG5yP3sACS6uWKaUI ZhWFCko3raTXICBczkoQOd EeEiFBAUIQH4AybqXVlFXK B0KAddGIeLPCU5Ht6tUr1s kwS0xaEdU4WlSIBMXJ1dqs VhdGljIGhlYWQgbWFzcyAy ObhuQ06wvSWeHeUaO80zrT QnvcAmDlglSB6nVUOcdrVv cvojwlAqaJz7GIOptaIzqb Ejm76hn1qtFQAnzDUhQUMc BBBvLD5dIZHicaQsjEQozR Tjo4TdYFMutmSyKLCxu7Uf hlTals4sEIrgLDRkyj0= SPECIMEN SOURCE (test a1fgySZvYONizRO0IiSsQS code = 3377) Ddi0toi2SaeMXdgACnIWpn sOOapiUcuv83qHI2rH53IA 5lFLSbTlR0NUJkvgP3Udo4 ILRuTBUfsVDxG318z5pqe1 hvhyPjdTN2yYeuXEIfxyoz MxU3RFvcIMWsmxiaZUi5NR vmFRWtuZE2YYSvzUQtJ1Xn PFKmXO2mplj0PPO2KOpgQW XcDsX2TOKffVWdIFVxhIwd DQxkd499RWB6SbArHHFcxz LvoWsgaW8cHiFaEDWPW46D B71sRdbRIXZRFKAPKMKMTS CHGO8WCESmej3= GROSS DESCRIPTION (test b4xtmJEiJQAvpMM6ClJyAW code = [id number]) Fpr0snn6UegCQsyBRtUTfz lQXacgXlmh76aNX7vH10ZU 0xZDUtCoN1TJNvdiC0Ana0 KGKrMKNawCQdL916p9anr4 ivgyOfaSY1xKafRGCrwmgu OtX1CPlcXRNcaktbBAm4IA cjCTIkvVX3AQZomSOyV6Hg XEAbWO4uift4YEY2LTswSZ IvYkK3GZFwzOQvEKXzpXhh VFuwy918SNL7VjMlQAFtin E4JDjnJQIlH2VyA6GbAZxl GCY1SBWsJYXbRBDeQZFpXG QeTUtymuL2y8mrBZHtkLKk XSK7VIhfjTMiHXHfJTLzFG egSnCWLaZiDhF1AyB0IDs2 FjJ6VKb1CQRIUpBnWsLqTh T1HXv1FpdbHZv4YRd2MCzG IsE7IGraXRgzNdBoNIIsQa KhVAx6MXLsOIiwsOFnEVNo CROtZHxvUCfrK40jvUygtB 2hNrNaXAKRElSDg17kw30y VfwgCONKuJK9GdodFLXsPm MyMCBSZWNlaXZlZCAxIGJy dXNoIHRpcCBpbiAxMCBtbH RdX3a0z5ZkD9yirqFnWyPc dwRfQAUxYQTrTDP4eO5rdO bjnqtmvc12RERec3YyfSPl k2WzH0DzhJRsuN3zxw39BM GzrNElBOL7ES2vtUkiSXWb A5RxM6UwdaD9TTBjun9= MICROSCOPIC DESCRIPTION t8flmPDcESDeiKL8ErCoLV (test code = 3371) Dlm9lev1LvpPUlyBMtGHef bXIguuJlmy13pAE8tZ31KL 5oSUPtLuJ1VBPsnpK2Hra8 QVEbNAQhuFTwO374a7nqe6 fjacOclPV7eYmeAZUkiazw SsU0UQyyBCWrsujxLYk6TY ueAUCfsZI1XJHsaTYaD5Zr NUEcNJ3vsnw4OHD5HCicUP TpGzT9EXRdiLRoWVYvvPqn JDmpt771NFA7BeRqQNDmgb XbzMparB9gVxWxOZUKOOFa a8IeQJEcHYJnaoreBGNqAZ Bhcn0= STATEMENT OF ADEQUACY Satisfactory (test code = 2757) Gross assessment was [facility] performed at ([facility], = 2777) Department of Pathology, [address] [place] [id number], Technical component was [facility] performed at ([facility], = 2778) Department of Pathology, [address] [place] [address] [id number], Professional component [facility] was performed at ([facility], code = 2779) Department of Pathology, [address] [place], [place] [address], [facility]:51[facility]33 Test Item Value Reference Range Interpretation Comments Case Report (test code Medical Cytology = 104) Report Case: [id number] Authorizing Provider: Effie Pablo MD Collected: 09/01/2022 04:20 PM Ordering Location: [address] Received: 09/02/2022 08:59 AM Service Pathologist: Jose Grover MD Specimen: Common Bile Duct DIAGNOSIS (test code = a9flfUJzSVUgxZX8WyJbMC 3220) Fiv0wxj3AejWVffHQbNDen iBYmzwBwzs02rDV2fJ33EZ 0pFULyGeC6OULyauW3Spd8 YBNaOYKdrYAgD426x4jyk9 zcwrBceLT1sFmkBIYcyuys NaS6MXfbPVNfdolgGEf8JC wqLHQtbTT1DKJsvZPpJ5Ji CKNwDX2wdss3BSN6LRktUI VpEvR4FRUwxNXrRXGlsIdz RGdxw193XDN8FeAzVJUbse TmbOndlF5vSlZaDBZZG04D C62rAliVKJIMNXUMZEKXIC JMXT9AAGyJMFYXE4CEAfKi OlxwYXIgICAgLUFUWVBJQ0 BJVLGtekOcKNMrJ3HjmjLh k4BdFPVuvMYiWMkst3LzkJ EoTP6yGBR8qKLzD4BnWVR8 L7IrdPEsqYg0fMIbvQJvAH NlbGxzIHByZXNlbnQuXHBh xmZeUQTrDpXmd3hdc0MyMA GbCS5eU55dIwobjIUibER4 gJKiGLFleFWqDKvrlP9gj4 Ucwn2loLOvDRMjJZVKS5Zf sSp1SFIebAd3cYIiLBCuNE ZubRTgLGOxCTMpG19isYHv eA0ijUElAEYiAzJlcIZyPP JxZkg7AFOtxJRbLXGiFvVe I8afwqafNrZLBCSom9fbG7 imfMAAzKYiO0QpZRorhcPq KCjwHDroOjCzZJt3FO83Yt YxXHBhcn0= COMMENT (test code = o7fplIJwPQQekSG1UzNmJI 6850) Ewl4lan7NxqSHqbUYbLXsk nZBsmzBmiv41qKN1fZ15FI 1gVFDnLfZ8YFGlqzA4Vpd5 QUHuTYTgoSWdE981w5xpf5 merjVupSO4tGgyYKCeyybx NtO7EZlkDRNlevdnZGj2QE mxSXZjjAT5GCXrnDBzQ5Nt LBKyXP0rtfy3MZQ0EDirPP BpBuU0OQMbeJJvJPGwrWwt DJzrp795CFT0PwAcZLRplt AipHfbuL1tEpQhGCCVV1Bu bOCdmPPhdoEoJ9npuFVjmY ElsVZbu6RmnNnxSQj0FSX4 yXJdX7UiLQpdpRzjOF63L4 xcMSUxTD5xVZTfAY3swkMi HU45S8vhEEDzgSTrWzZprb KjFECyg5LjMEhljCvqNQO5 V2OljNWznJp8vRZyfMSbBH tsYHYxCT2zUAKnDD34RFSr rTl2eLOatJT3XSZeFDExlD LcpjWjvWP4wVAbZRIqEOPt C3Kboss4MLUjr23oIU7eNZ KxoLxyAmqoG8jmhXCfpRSm cGFyZWQuIFBsZWFzZSBzZW Dnz8GhY1qnBJlotOC7zO1i r8l9FMMrj7VkWADuCYFxHo K1WARvoy6= CPT Code(s) (test code l6xnsDAqMLUruUV0KfRuNZ = 3357) Lps6tqd4GvpKOgeAQoNZdh pYTjjvEaen33eQA2zE25RP 8mJDZzBfG6BRFdsmZ1Fds2 IZKuONJrzJRaL056f7pcc1 rguaKrjHZ6pKfgYHAckrjn AeZ5MGfmWWUdpfnaCIn7BM jeOPLjeTH1GWNqoHYeX5Bl NHGvQO6vgof3MZM2BRdrTG KhUmZ7VXIsbIPfMMFspFev TKodj588DGK5JlWtYDUbbq LyuGewwU5uNdBwCDZ9FVOj OFxwYXJ9 CLINICAL DATA (test f4wbaZWqDRFjmEW6BiInVO code = 3355) Bip8xsi9BsbOFcnCCsSTqy fRQkwaQqei23mHP4yL12SZ 5nZYRiFhU0EZEbiwH8Gph5 LFZqLUWgwWFcN613v2xit6 ddcgOfvRR0nKccDJCemqmy SvE6SHguPGRvkpldDUu1KR frMRCqaPS8EBDesRQeC0Yo SCOoWM9kaao3GSJ8OCvoEN MiXfY2ZIMjxUHrOKOntVui JNpvh375PZV7BdUtOTOwir MfhHhvxG4oFhVvILZ6UaAS IHdpdGggSFROLCBidXQgb3 MtKNN4bESqTAjkTPo6jXfg FJSlQVDnmqFkKFO4fQCtJD GkuN6dvOyee5LchNOyN4Yb o3PesmVvIXTrc69pldScOK IogC4qZZ2TB9Pxj7mvo2Xz SWWvvLLhR7JyEPMmOhZbTX VjHB7el8Mpd8w2eUIjwvZp RUdusBQ9jGPtWF9yIZQ6iR JhaGVwYXRpYyBiaWxpYXJ5 MUOizGJ9pI4gBPS6eHDaSB DgEBZms1vbFIFVFzkjzPXx ZnWpYNXZIQN4PxyaVUgIVT M0MEejQSaMGXU5Vo8tBg9f smC3tfAiT7MoRENSQV8rvw VhdGljIGhlYWQgbWFzcyAy GbknR47hpAZtXyAwD10lhD UcegWjDlllZA9bNBShftKv abnsviMosYc6LEFmywXnxa Nrf81zt4fcCSIalARaCKUw XXIpQC2rZSBeirGmwSZjqT Api4RuHJInazAfBMDdj5Ka ilOqkg1hSNbnHOLxlb9= SPECIMEN SOURCE (test z1seuWAwEFQntOF3MfOqOM code = 3377) Myg5llg8MqfKUreWXpIQaa rAOyxqPrta97uTJ2jQ28YO 7tWRAgXkI3ZUZtmpJ2Qgk9 LGPrLKEdmJRdZ744c0xxk5 tvnfFlnAZ8bImhIQImyuzi VcG6AKprUAFvkbmsMDf5OF sfGOOogYL0GMGqdEMgR3Ma RUOvFL4czlq3AEW8SKxbBQ LlDgQ3PVMlbWCoKJZbrLsj RVzhf543BEL2UiJaXPRjib TkzDxxvB4gMxDpLPDFJ58Y C43tMnfJDIWFTHSZEVYINV PTFC7PZSQhfj3= GROSS DESCRIPTION (test c1odsWWmKNTjnQZ3EaAbXY code = 6320905810) Oty3nkf9RkqVOkkVZdNYgd cRRcisIgfo73oRO2fO72AZ 9gMYMxGqD9FYJiybN7Xiy1 SXElHJDzrFOyL560t1jut3 pixfEbvGV1hWdtFWHgffsn OnP3MVacKINjibyqWIm8DW dyYOYanEN9TEZznTXzQ7Ug BYDbFE7jjrc0UYK8MCkyAL AxEhR9AIPptOOlYDMdzXqt CQjoj455QCA9JcGhQLQfff K7EArpCJEfR5PlS1JqACfs IPT3ZMWyARKfJMUnRTOrTY DgLZhneuG3e4bnTOWgkJXk TDZ6VJtedELwGNHrCCCwJC vqXgYWPpCaFrC0RkR7JRx8 JfM4CXs5QQLXHmYrIpKiVh L0NEl6EmjcKUt3HFf4UBhO WdT1AUhkCNoiUvDdBQPdIo FxTAi7HWOaOVcreMWaAOSl CXNdGHidEAlkT85trDzcaY 3tOtBbYKRZNxHUw61va67u PvwfAGBLnVR0LvtlERAfGm MyMCBSZWNlaXZlZCAxIGJy dXNoIHRpcCBpbiAxMCBtbH VpH6o2y0EpM4bcduVyNaIb dgVdHIEcZRNzDXL4lG8waV qskytqte08HRYxi2WbuZBv n9UeD4FheMUioV2gir25HH XjnFGxTKS9XW5tjEyxTULb J0QgB5FsodU1GRViho3= MICROSCOPIC DESCRIPTION p2cixSBaYPZtsJG4XqGpQF (test code = 3371) Dhj3cfw7ZruCFywZTqJHvs rWZiacPsdu68cBL6jT21TI 3iYOGaQhU9KEEsreR6Zxu9 JEVqDBGgeGNlI057h0ame5 prxeFtyHE8hUuxWRXyjzex RyQ0QHkgVFBxsvabUSe1FD jnZTUkqBF0QRZmjLVyF8Oa GKCaYT6jpey8BII4MNboUG EbFyD4BNBidBIjLWQqhInl JEsdr939IUW7JbRfKMQlws RhcBavvA0nIvIeKLTXGFHw r1FpZXZtVHAlodgdRUAaEF Bhcn0= STATEMENT OF ADEQUACY Satisfactory (test code = 2757) Gross assessment was [facility] performed at ([facility], = 2777) Department of Pathology, [address] [place] [address], Technical component was [facility] performed at ([facility], = 2778) Department of Pathology, [address] [place] [address], Professional component [facility] was performed at ([facility], code = 2779) Department of Pathology, [address] [place] [address], [facility] Test Item Value Reference Range Interpretation Comments Case Report (test code Medical [facility] = 104) Report Case: [id number] Authorizing Provider: Effie Pablo MD Collected: 09/01/2022 04:20 PM Ordering Location: [address] Received: 09/02/2022 08:59 AM Service Pathologist: Jose Grover MD Specimen: Common Bile Duct DIAGNOSIS (test code = b4stxNIbDCKmbEO9BjIaZX 3220) Gam5hyz6YrrFMqnTJdPJil zETypzFhsq71xZO5jB62GZ 8wIKZmYcC8SVGnrqA1Kxl3 ESQmQSOnoUOxC072j5cun0 cwohJzmZP0sWviBERksykf LqS6HByvIMSzbeaaIDt0UX yoTQHejRG0LTTgoLWuU0Is TSSaJO2wwio4YGM0AZwaJC XmPwY5ZELbtHUqYUUcvCdm GEsta862IXY4ExNxOTXeck FllZfbjF3fTwVeWSBVJ40C N87iIbuVMNQTQZTOITUROZ YAKX4PRLiRWRVFF3DPWzRj OlxwYXIgICAgLUFUWVBJQ0 FETTQirwTfZYRaF4XdxqTa z0JaDURhsRSuKAioz8EqkO SlDW4kEUF0xIMwG4EdPYK4 I2FkuXAbyZe3dWMcvNImKL NlbGxzIHByZXNlbnQuXHBh lhKwNZUaLvYih3dyz6PfSZ KlZA8dO79lRcttkYOhdZB9 tTBrXYGdbJOaPTqzvQ1gm9 Efuu5oyVQqATAtKOSUR7Lu wSm7CJVwnVf5mJQyRUSbSU IbmYApWTYdZHNiD06ijRXz hT9xqMHrGGVsFxFdcCFwXO ShIei8GTUrlNArUIGsSqKq V8eabzlrWjXVZXMve3eiV4 kwjCBCtIOzW7PwRTsuolQw HEkzZCrwMsBlLUn3HZ71Ed YxXHBhcn0= COMMENT (test code = x9bsvBOhHJGmmQQ7JhQkSL 3359) Phj9ryh2JleJBhaLIpMNbo aVOcjkSzdu34wEU9mW87JF 0bMMWfLoL2YABdssW1Zdx4 XYFySTUugNRnC711d9kkn2 izosHvvXA0dFqsUNMujtuq LrL4CHzePPEigminGRl4PO yoPRKueOE0NHYtaVZjI4Fd MBRxUW4efti3QTJ4TAmoTM SfIyE8ROBzeCHxGWXdeTkx SFdqa169CGQ4YhKkCYFvad AggStuiW2sDqAsQNWCD9Db qVIjqMQwguSkZ6miyEAnzU VfaSFgj8BlsAyvAUh5HKA6 nVEuG5OpWGnstLntBV26P5 dgMONzTA4eJCAzNS6paaIh LM48L5luRAMoqBKkBaHzrj GqDVPks5CjKMwqdVzvMCJ9 Y6OsoTAxcQy1kODjuBMhSQ dpOCJlGQ9iPGUdWB48VOSy jUn8fBNavZO7XIGqXWYgwT FkxjJclSM7mHEmHPAsRKBc I0Wvszq4MSDgi56vVV1oFZ XosXqhHeilU1wnhTNbhATb cGFyZWQuIFBsZWFzZSBzZW Rzs0EsW7gsWOffgFO2hN9y x8h3RQIex0JyZKTiWDNlXp S5TXVrep2= CPT Code(s) (test code t4cwtDQsXFTbyLF8QdJaCT = 3357) Gcq8dny9ZhxJUsqTVpYLad kBVgxdOhew21pSY5aY85IC 2sCSZzUtP1KGWomsS9Ebi4 LUSmKPOxhERwC201v4dki7 qzpkBagIJ4jIcfXBYkrfdm CzR6SEkaOSFcbdwoNFi5PG rhBTKblAH9GOXecGUtA4Pz CCLbVQ6osgp7DJT4SEnqRS WbFnA6ASZrbEXmDMHqoOaq TJncr053PNK7XjCjSIVfqa OptOnmbV0iElJhBAF0GRPv OFxwYXJ9 CLINICAL DATA (test b9wqgEPqISEmeUS3FaIsKL code = 3355) Mlu9xqw1OdgYPtyUKaERjc aECbmeRcsj83aZC1aR93KB 4tAGLpDeR0MDNcdoM8Fic7 TJVzYLAsuABbT807z6yaj2 rzlbJhyGD0yJcsYLLddcoq EaT5UQcsXCCrhhbmUYx7WJ hmVBJwfEG8YCWlkQEjF6Wf FUWwHM1gpri0NVM7PLzoWD DmIbP4HWTfbEMuDRAreBwh YKatj167PLI5XcYiAIEtps MdiEopyB1pTzZyASV3NmFT IHdpdGggSFROLCBidXQgb3 EmXPQ0gBSvNJmuMLj8eUup UKBpEJBefoEjTWA1gMGgGP KsdF5beIfak3PciKZnE9Yy i0JkjzVqXSJpp83fnlObWF UaaW8sEK1YF0Oiy8juw7Sa IJQxsMZpX9SlAKJzNgNxXM QrKN9kd9Lnk2d8uHSrafSx MSikiPZ1kHQsEG4pWZW7gV JhaGVwYXRpYyBiaWxpYXJ5 PBTkiCZ9rU7kISY1xNZhYY PwNHUkt1iwNBEMAhvcgGNw UqJyABHDRBK7TdvqWVxSIO G8ZBdzPWqRKOP7Jt6kJa5r ohN9nzRzR7AoQWPFWM6cuh VhdGljIGhlYWQgbWFzcyAy LjgfY44apDBwHkVdN14rkC UiwgGpUdryZF8vNHZvblMe hfewxbYiqMu0ANVadnGajd Jqw35fw8liKSZusYTfBHDc DKLjNY1xHEJstdRtkLFomJ Mpy4DhSWQdkdBeKZOfn5Uf cvJave6iXSdrCTBqru4= SPECIMEN SOURCE (test t3aunXMaHBNpfDP5WbZqRK code = 3377) Onz6kbu3LwoTEdzLOhNXod gZPnirKpem87bQT5yD72EJ 4bRWRiSlB0EWGgpeL0Cnf2 TOMuYVDraKKmH350i9dtq7 nidxCytMP1gOmbOEZlbbue WxK4UOhsGUSsdwrrFXm5AZ bnUSFliME7PEIynQRrR6Jq JKAvQZ3etsc3XTB0GOlrMQ FaGwZ8JEMhnJVtFEExhWgo OCtjn512CFP1QzCwBYRjsl VqaUdfoA6vQpIjTQCEC97N B93uPbwJAWVUPKFQFSOMGJ KIAI5UYWHlfp7= GROSS DESCRIPTION (test u3hnnIBuTPMrtOU1OwZxIR code = [id number]) Fkm5vlk2WblOMitWWbHTkx mPGbrhJsrh93lJL4oF02QF 7dXFUpVdQ0WZTozdH2Dzy0 ZKWmIYYdjIAjN951m4mkv9 litdZdmSU6zObjQZUuynkg LyI5PHhvGBBdtuawJAt0XQ odWHXtkMA1XXAppKQsG9Va NCSsOE0dmnc1BRE0LZnqBA ScScA3AOMrvCPkCYGfwStu QFlcx398DQV7LhImWIKrmu K7TVpoXYFlM0XrE5JzCKtm HZA2OCByLDOzDTGaIZSkUC HbPFdxsaD7a3sgIMMsoYGl DXB6BVkiwBXrDOKoFFMwIS pwDrFJMdRyMuR5XcN5LVx1 LdJ0RBm5KADICjJyEyUaOc K6VDu1QnwaASw0IMd6HIbY BuB3FDknCUotGaJzOBXmRi HlEUj6RJTqBJogrWLeHQRb KEPlRWdkQHcgZ73ooPcnrA 0iZhIpPERWBjSTd46sp23q UrtcYBDLtLN4QsbkFPCbMg MyMCBSZWNlaXZlZCAxIGJy dXNoIHRpcCBpbiAxMCBtbH PzD7o4v8KfJ7ggomJvBvIb goAiNSTsXEFzKSZ8xK8qeQ rgelqeib34RIYnq9UzwCBm a6XfZ7RtpMDnvE8boa60ZB IxgDJjBJB0WI0kpZusZUMw G9NqL6OqeuQ6NFKhse2= MICROSCOPIC DESCRIPTION i0ghjKKxGFNqiRM0QpZxDZ (test code = 3371) Mup7oom3SyrVMbvRKdZFqi iIIjioRczt89zFS0fF03QQ 2vYOIsWlS5ELOvwoC6Aus4 ODHqHXHneQIvD707i6dib5 lfusYbtOR5pGhkTMKhhbhx RvF7TZleRCKmxoiuGQj1SH qlKFXpfBJ2QKTkpFZdJ1Go UCOfOO1eglb9LLE2IUoxGF XaYsS9JAUmyFQhHGVqcUmz WCgqs258ETL3BkFtSYGyth WoqQstiL4vWbKoPJJFQZAi y0RqFXTpMVCgediuCAByWX Bhcn0= STATEMENT OF ADEQUACY Satisfactory (test code = 2757) Gross assessment was [facility] performed at (test code [facility], = 2777) Department of Pathology, [address] [place] [address], Technical component was [facility] performed at (test code [facility], = 2778) Department of Pathology, [address] [place] [address], Professional component [facility] was performed at (test [facility], code = 2779) Department of Pathology, [address] [place] [address], [facility] 10:51:33Medical Cytology Report Case: [id number] Authorizing Provider: Effie Pablo MD Collected: 04:20 PM Ordering Location: [address] Received: 09/02/2022 08:59 AM Service Pathologist: Jose Grover MD Specimen: Common Bile Duct COMMON BILE DUCT BRUSHING (CYTOSPINS): -ATYPICAL Scant superficial strips of atypical ductal epithelial cells present. Background benign biliary type epithelium seen. Scantly cellular specimen, see comment. Signing Pathologist Direct Phone Line: [phone] signed by Jose Grover MD for Negrita Calvo on 09/07/2022 at 10:51 AMPreliminary result electronically signed by Jose Grover MD for Negrita Calvo on 09/05/2022 at 11:01 AMScant superficial strips of mildly atypical (mild nuclear enlargement, nuclear membrane abnormality) ductal epithelium is seen. Scant cellularity precludes further characterization. No cell block is prepared. Please see surgical pathology case [id number] M with HTN, but otherwise healthy, presented [...] red;prepared 2 cytospins, not enough for cell block.Performed.[facility], Department of Pathology, [address] [place] [address], [facility], [facility] of [facility], [address] [place] [address], [facility], Department of Pathology, [address] [place] [address], Tel [place], [id number] 10:00:00Reason for exam:->bile duct disease [facility] : 1970 Sex: MAn imaging unit was utilized for this procedure. No radiologist interpretation was requested. Refer to the EMR for findings. Refer to PACS for any patient radiation dose information.[place] [id number] 10:00:00An imaging unit was utilized for this procedure. No radiologist interpretation was requested. Refer to the EMR for findings. Refer to PACS for any patient radiation dose information.[facility] [id number] 06:31:40 Test Item Value Reference Range Interpretation [...] decreased 60-89 G3a Mildl y to moderately 45- 59 G3b Moderately to s everely 30-44 G4 Severl y decreased 15-29 G5 Kidney failure <15Reported eGF R is based on the CKD-EPI 2020 equation that d oes not use a race coefficientEsti mated GFR is not as accur ate as Creatinine Bessy minnie in predicting glom erular filtration rate . Estimated GFR is not appl icable for dialysis patien ts Cephalometric Analyst ID - ADMINPROTHROMBIN TIME/[id number] 05:09:05 Test Item Value Reference Range Interpretation Comments PROTIME (BEAKER) 13.7 seconds 11.9-14.2 (test code = 759) INR (BEAKER) (test 1.07 See_Comment [Automat ed message] code = 370) The system [employer] generated this result transmitted ref erence range: <=5.90. The reference range was not used to int erpret this result as normal/abnormal . RECOMMENDED COUMADIN/WARFARIN INR THERAPY RANGESSTANDARD DOSE: 2.0 - 3.0 Includes: PROPHYLAXIS for venous thrombosis, systemic embolization; TREATMENT for venous thrombosis and/or pulmonary embolus.HIGH RISK: Target INR is 2.5-3.5 for patients with mechanical heart valves.CBC W/PLT COUNT & AUTO [id number] 04:41:55 Test Item Value Reference Range Interpretation [...] PERCENT (BEAKER) (test code = 2801) Tissue [id number] 14:57:26 Test Item Value Reference Range Interpretation Comments Case Report (test code Surgical Pathology = 104) Report Case: [id number] Authorizing Provider: Munir Mckeon MD Collected: 09/02/2022 02:07 PM Ordering Location: [address] Received: 09/02/2022 04:08 PM Service Pathologist: Halyie Person MD Specimen: Liver DIAGNOSIS (test code = u1yllNWaPLHwk2sgSMTxvG 3220) FuZzEwMzNcZnRuYmpcdWMx IHtccnRmMVxlcGljOTYwMl lgucBcANCawGSdX6Rudmux VGkrGV0iMT7dwLzilRHmeF PtHDSkZxClf8ofq559qWRo k1diIXAFesqqtRy8tEkrP6 1wn1F8FobsI64fcUNlNCX6 ZRYzHYPrnTRaHIGyHXZ2UG NvsHFkK7xyNVEbJW6yluks ZYbdYMfwZDBaeJV9PQRnsC DcI1VeQJFqCMlbMKEisoi3 PvXtVb4vfRDcfVofOAsrEC JkXHBsYWluXGZzMjAgTElW TRCqTBOUZ9OTIUzpcXssBX anaA0oGC4XNBzguAz6DNAu q8XysWQfbNkpIJ4glQmue0 NtFRMkpU2adwHhmRxbBQUg ABYxgKNvpbYwTUKro4mtiQ NvaWRhbCBkaWxhdGlvbiBh jvKvJ53oW9LsmOxtxwsjx0 UxY0YinJg2AEYoUjP1YC6l bNFje3C2VtkogsFwQbV3qz YcbNylbcbdWVS0e0ubxJGp XHNzdGUxODAwMFxhbnNpXG EyWsjqegbfBOHdGCD7lkFi WZEcPDxjQVYhFWnkWi3kmR LhvRlbNuQqUXCsg9uqleBM wcxowJv9y2wzTHEfOoK5aV YqIVqyC4rxbxApoIPuJQRa UEm8uW81VKFnsI6mqNScPL krtfLxQnZ7IWrqFJHqAaI4 NYMmiPSkKPPgA4bhXDKhNF luKRTbQDkkbUQzSPX2yGgx e0Q5vSCxcXZycCvtSyXuXv HmRrPBp8WaCIl2mBfeM7Zo HAQrYxA2kZGzFMOoSVmcOE GiWPFiexJ0kJ06HBykbhP0 xPYpt4Uji66vr225dO9zwG FmYGU6LTRhDWJucOYpOKZx IFB5JJCkeHUyV5fjVJFnTE 8thjweHWlmJSvsTICfeHH0 NPVxwDEhE5KoBWNtRTlhIZ Ikelm7OdWtMv1esOEjhRan PHbsz7ttt1gzfZTcNho9WC YzBgMlOhvyLRvyo0Deq9ef DJRnyl2nFUJ6fPTtnTieg9 W7oTOuAIRgeFRvEQNnDU6l uKKoDJNrkQ4ihtrkLXEhCt AawozkFMMnzHnhsnOlIi7z tUtrWTP5VJeeS1qgnQ4uQb X2JVabG4gzqV6gQUv7BSzq TGLiqTA6niJ3XWPksSMlD6 YayD2qXQYrRF3xqfp9r1op TGA1LXbqMAVaClN9xhP5NB DskEYfZLKtyGuvABrym495 QOP7RwPmIKHkk1KiY8SkpT ahR12rfOtvU62aGOJiyDot fZ6vrMuqiY6hZtEfLhReDP nztHrzTE2kCFHkH3sfxWJu HDGbLKOzM5mtGfYklB3dhE smTWawanAtQTNxXjl5BJFf dYCnZXYhBya1GDBoQFKgW6 3gnpepJVE6fG0ib0mre4Sg IDgjDCI2KAJlj75yBXvxct Q5QXdgJv47GCajUBH9NNkk YXJ9fQ== COMMENT (test code = d6bdzEWaYDCkyWC4IuXgMO 2410) Egu5osr5BsbFTbrKYwGFzx oGKdlwSpjq59eUN1xZ72GW 7uQGEsIhW6EBEzqsU9Yji4 BYMgLWRbqFJgO575n0qgq4 aznrZeuHH4bBqpJZYeseec NpN4CXsfLNDzgupnEUl4HC zqDPXcuJR5VLXkcAMuG5Of XXCmRR8odbb4JJJ7GDqmWX TrIiP7RJRrgYRmJNZfqRnn AYrgg855EXR7LoKbLMFqxy QzvTqzkN7tLlXjWKEToLkt pFYgpCTzaIV9e5Y0UZ4pPA XuyeQuQDY5cCTmTCBqhi6j ITQplS4mwXZwkCNirk48UB FqWXEPeSYzYjcisAR3JI0d yRPbs2IsNsFjtyGhuqGkHL 78AGWttpLzf5ZpjCrwNQFa duglsBOfKUzin9khxh9sZW ZzbM6qE5VeFDMndwUevNH0 kY8dKHjlVMLxA46tqYShBF VkLlxwYXJ9 CPT Code(s) (test code k9ingBTzRLYoqUO5MsQxFV = 3357) Cyz2usp6UhcIBfrOMxMFzh aXJizdGdse75kBX2dK01SJ 7zIIXcTfZ4MFUkkvQ8Gdy5 KJNdRJYrqBOtV852v9tcd9 wbijXybDR2zZrbBBOmgagz YcA8BTxfZKDscfxgVXr3KD quPXUsfWL6HDOwtMNjV4Kd JGJxXL1dbed8LYS5ZJdeGX EtCdJ5ZWEpjSCsBPMynBvr OMdll508ZXD1ScDnQBNdta WtbGgrmC0bRkEnXJZ0TPRg D8hiAEU4 CLINICAL HISTORY (test d3qjsLUuUURsoOX0GzDuUU code = 3356) Qpp9rea5JtdRDvfCKwQMts rBLoizWwao18wDV3yN58LT 6aFQCaEnD9GRPnfcR6Gku6 WVPlIXZfaVLbU231c0nvw9 sjboFggRS5tDayNVUzqisv IxQ9LVugJZDfekrmERn1ZK abKNWxaUE6NDReuPBwQ5Ob LWPlPS0aayo2ZPY7PUssKO TaPlU4ZIOypIBiACPhlVkh TWsfo995EWS2FzUuEYZfie CxlBgwsI7hMaRbWFNRuVLx hgLcOPDqa0Vsi6boMYKyzV TeJYO7LNEhslKjQWE4cLSo B9SaE3BxLVTdja7= GROSS DESCRIPTION (test d1donACaLLCslYWAHTXfN1 code = [id number]) kpclBhBDVgnHGvO5Zmmkon HXekAC6bGK3hjQsqcWMxtC ZlNB9MWQZdKmElYXXkzDDn zmLuYoXeYXWjsBRgyCY8FJ VnXL3ycdexDQvtGZiyGZMa adP5GGLxtAUbM4NnUOWhYZ 6vnepsENK4QOthjX6qwqLA FaioLy4aiNMmwRqhLzAtUk NoYXJzZXQwXGZuaWwgQXJp DSb7aD3HKgwiN81xi7T0Lp g8AKTdRJByZ0BeEU6lNZYq zQYwF42HRztlVAK6SJKMCe joSRQkWL0Vt8laNEOyoARp MRH1IOwqqLIzCQFuQVUfTG m0SIEgZFiznXCmME0rpXfr TcdwlWdna0ZcfITeDFibPS WxZEZrQMsmKKWeTT6KStXl YOL6Jcr0GQWbFZw1VYr9LX 1PFeVkHFGzGJWhCXA5LJYw RTz7IMefMC4PVAK9PDO0Qx Q2SeN3TII5RiYqOGRdWmVx XGYgQXJpYWwgXFxmbCBcXG 5jfVxwbGFpbiBBLiBMaXZl qj0hsANlWZ5ZFEQwqUUVNX P6LG7sLPRQTxbjaRTtBMPx uKmeCZizyL9mLE1HPZc4ul IzOLKdWEjftuLeBOVyP2Za hzHrWBguQQXuoo0ncUuaVB uqPbNtXVXaa3c8fGB2eCTu oXK1cRSsoXzmOvIbWB0qxT UyHN8hOTrdOMfqglMvl9Pq FM81nDHzxeMpdkLjYQO9Fg IwIFwnOTNsaXZlciIgYXJl ARSqiHFnMIJ7gUDrBVAywI ymQBRnZpXobAufv5ZhEBBq fjEoVQ8jUUQ3eigvNiP7kY M1btVfYdBcJ87viV9rgZJj B8DkAOX6lFkjrJWrqaMvl7 ZghXr8nLTjNDpxYMBrtD3e oQ7rOKEeDBUlqyNBKilmPE AmPLzyT3PfKSRzTkPxTNgp YXIgQXJndWVsbGVzLCBQQS pzSCPkLQKNA6EiZJsxpUcx oW1uYMIoA41zz6JCh9ZoGK CrDYzgr3kohWaff0DiiSWu QAvdYWIrzNSzEHcbwA4rGg Cgd1cueRk9FDzttcP1EYLz ul2SApyjoC1vRhIqm7rvbX k2JJQNVtotyoV6l7xyyQmg k5NnrILjIU3KFp5= SPECIAL STUDIES (test l2ljmZReKRIxr6xsIWGwyO code = 3376) FuZzEwMzNcZnRuYmpcdWMx OKhyipDfGObyr3EuI9UaRe AwMFxhbnNpXGRlZmxhbmcx ISRlVCA9qjEoJPZjQDyuTQ FbSOevFh9atLAkyXgbUuTf PUScp1eajaGWtpprpGv6c7 czVAFuLhX2bMSsWNjeI7fo pzLbnOKfW6MvqFLuePv8o6 zyHfJsHyB1dPBtXCeiA8ch bsTxjTWqLIIhKZd7hV40UL XxiD9evSWnVYqpkbGgPoU6 SCflWNToElG2PXVyxYObKL BnF1gfEOYwDDnqPNNnXPtr iAVwCYK3fLetd3C4lVZwzV VpsOhoMyJvNdBgKjHJo0Rv FSm8uWaaF9AkSHNcBtE2wP QgUGFyYWdyYXBoIEZvbnQ7 hNwanjPha31zsGHfUYMjFL YeQxCvhLwsUSLdFRMYw5Nd zFfoDFT4lYn3aThjOjuqPY P4Qor4BP6mri94lhu2hWor ACNrxmknXbA6XAopOXSqbz fsCWr8FNojSFEquOP8ZTAk pOAzI5CvBUBmWU1nikn7VT Y2AGykHSToZwG5ZTRwkCHu WLGgqImiHGsaj288KRJ1Ka LdJQ7hF7Xaj4X9cN9uiDBr OTYyuUXkOvQnFATdem7ttI SmCPufu9IxVRV9heB1oHVh vUIhPIPyDI26Csyaj8PlNt bwd5OhS38bcCU2QYxml2xq PR9vGrK3wgPjQYtud1gbmI 5vMvY9STfcOA0kEB9bOYHu fQ1sbmrtUHIdFtWcaeswOP VggVzfjwMpXo0mdIzkPBY5 UXdbB4tlnT7oAaT2CBqaI7 criD5kJZa0AQymxIM2OHQj tL1xDY0yfxgbv6qcZIubDX inKYSaktF7rlD0HFGtqBSn F9DioS3kOATaDQ9yyhpgi1 aqCDC4MEcxNVXtSWN5ZmZu VDVbf8Hshvi1SpTpp7JvpW WqBVsjN51xq729PNXjvkLd H9suwKYkqitbdQAjlkyhTL hdrgF2CCPaCRZlMUkwKZVe XGZzMjJcbGFuZzEwMzNcaG ljaFxmMVxkYmNoXGYxXGxv T6fnAlLbY9GaIHOqQvNcAJ ojMGqoxQZeeOErcUX7zL7x XT1zEWWnvGCeO4KtKFFhxp JtgYNbVGY7sVOktHPaSL6q VAjptXRvm8iir4XyD9ayuB jjdNC8DO7gWVKeRHPsTUaz e4LopD0eCrsofXNnstsrQO xmczIyXGxhbmcxMDMzXGhp U6hlBrJpRDSukBefCUxue1 NoXGYxXGNmMlxmczIyXGx0 cmNoXHBhclxwYXJccGxhaW 4jYgHuJjMcGnaaGK4sCMTu T9nbfVQxZJPeEUJjZ7mmCj QmkC6loExxYPegEuZzUnBa DrEHl876ip8kWTPlfZVoly QGlQGhbO6dBZehKPgoBYkf cLOeMFpdc7vdYXQer3k1rH EwSTMbfbAgi8gpHFlbbsYn GBFzyFSmjDJxWOXfr91yEK pnjGiylKrzXYJqo3ZnrMqs l0LhHvLbBGbri3DnG47dfA JvbCBzbGlkZXMgcnVuIGFs z85of9ayJCPlJsI0nOCgeJ P8uFEjoWOsw0VezSztFEQp l6cgPWNslu3lsaruzXZbs4 JedR7tttoeTFyefHTpepJq YDDbz6t2cVIzTSLzRVUzZI tzuOd8CNRww031xh0yjhI4 uBQaJKL7DSjpCOWfQSXhej UgZXZhbHVhdGVkXHBsYWlu XGYxXGZzMjJcbGFuZzEwMz NcaGljaFxmMVxkYmNoXGYx EGflF0liWpAoE6EcXRUwSz OruTNvW0oweCKlYKWgEVza XGYxXGZzMjJcbGFuZzEwMz NcaGljaFxmMVxkYmNoXGYx ZHveF1lgDyNjS0DuCOImKj IgIFxwbGFpblxmMVxmczIy EQscjrzgRVNlSHkgD2goXf RmPXLubKoyCYrsj2IvPYXn OXMvRoewbvThQWx9ccXkWC BhclxwbGFpblxmMVxmczIy OXymufudKBJhXNzfC7aqZt CyFRKfkKygLMuzs4BcRBTs XGNmMlxmczIyIEltbXVub2 hwb2SfO9rqwXrwfBU7ZSPw T5tjjWFfmUV9GOQ9kY8xED sqcjRrKLHjw6IfSKDgAYAo JjA8jK3bGWI1MkFBvXsdKP BsYWluXGYxXGZzMjJcbGFu ZzEwMzNcaGljaFxmMVxkYm ZpGFDzDGgfB8fwFwIqZ0Fz EIJbTePxiDupTHazCKn2Ol xwbGFpblxmMVxmczIyXGxh wdbhAKDoKPefB7pwFiVrMV DopBqyPSdhp0QtPLWkHFBw MlxmczIyIHMgTWVkaWNhbC MHFG54LABhRDGfgVhszT8z vJNZJTCxqtR5b6E7ZCncYR BrHAy5NVbzfbLyNYPkrL1j EYAoKI2xHLa5itNzWEGjv4 QhXS4tPGAzvNFnEVQ3XHZh m1OtI1Qby5FiQUWlIWUzov 5hjyYrQvIHfZKsEQIbsb28 XIQoCY3nH3xoEIClAZZbxz UgyVEyq2SlFDTukEE4dVJj IL9GEbGLl77xUDIyMKKVfh UcFINymAifqGO3qsG7fC3b LiBUaGUgRkRBIGhhcyBkZX Ajwr5ylgGjSOBdDGSiq9Wa qNBxuTIgvgTuC1Fkv6MoQP Puib33UXgwlIHfxq09ND3y J4Sbb7AixL2uPKbyDJUgq4 AvbKFqyVPtIMXfv5OsB2at ekfhLBfeyUDjmX6fEOMlMQ a6SJJwc5LnAZJlb9NsPqTu haBoMZUqANRwGLNxxM09NS P6aJateYfuegEvWG3iAYIv zrLkKEZnXWHsbQ8zAOqoad JaFHKylyJ7c5S0ELweUQTg ksLnJywnGSE6fpLminS9xS BeK6vfomesCUxjVDKib8Qt qZ5pmCQMkBTrk5BniTQfeK XAdIIrRO6wszBcZR8pVOC8 ODggKENMSUEtODgpIGFzIH D2UVjpCfouXFK8xnGnUOCx o3CqOWfhZ1ueK43dyPcydW r0eUWcjJcppRPpxJUgEFSi wpV0u9H9TZYfk3OxwcufBH BsYWluXGYyXGZzMjJcbGFu ZzEwMzNcaGljaFxmMlxkYm RdUSLiSFwyJ0uqDzVbBfLs ReqvMIP2wB== [facility] [id number] 14:57:26 Test Item Value Reference Range Interpretation Comments Case Report (test code Surgical Pathology = 104) Report Case: [id number] Authorizing Provider: Munir Mckeon MD Collected: 09/02/2022 02:07 PM Ordering Location: [address] Received: 09/02/2022 04:08 PM Service Pathologist: Haylie Person MD Specimen: Liver DIAGNOSIS (test code = f8kusYDvECEte1soOMUhwZ 3220) FuZzEwMzNcZnRuYmpcdWMx IHtccnRmMVxlcGljOTYwMl mgikFwTGMkxAVpE2Tpgqwg DRflSZ5nIH6xyUikaCLdvA XmFNXtBwVos1tah329kYLl s3tfIRSCbskpiOc0cHfcS3 3ek6Q4NyvcQ02gjNSzHWU4 CKLpQEByuTUtFEXyIUK8LK XuqQMuD6oeOULvSW3algsn AYmqUOqtEJTuiKF6UGSjgG NbD8WnXNXjWFcjVTMmkha3 FjXpUm4npMGioQipIMpwYQ JkXHBsYWluXGZzMjAgTElW UQEkQJNXY8HPNAohiGseBA agsH2nEG5TYChlvXz3XNBu k0DrhJCqdXlzIE9wfJiyl7 BxHPLinT8lccGbxDlvFRYu BGBtgNVqggIeGVAup7osiY NvaWRhbCBkaWxhdGlvbiBh tuYqA92fL9ZltNgobtuwx6 KoB4NshBs5PIByHxB1US3w tXJtx5V5CqndwpOoTuU4eu SwePbpisixCJL6x0ipoZAq XHNzdGUxODAwMFxhbnNpXG OcLbzhavriJUVmRDU4ugHb SOXtNIfzRKJjUZenQf9vlE UvmUkoDeEjUIMrw8owwoUS igiscJj2y8bnMLJuAmW6wC PiJHqnC9yerqQxdYVyUSQt UDp5dA81HYZfwO3tsQTtWH mbalVvVjP0QIqkSEPuNnN0 FRTfoPDaWREsI5ejJFSfCX zuPCQdPEslyIOhLOB9yJcs u3N2wBRjtTWgmMgeHbQyYp QiBfTDt9YmGTn2tTmgT4Tg SJRyIfH6xJImUHBiKHaeLV AiNVZgxnR5eO50PJtkdbM5 jLJqg6Uyd62lx856fZ1evE AuKVY5LELeFKFhcSHwTLLc WIH6VBPihVJlE3kvYOBkUD 1zumnpDBwoTZgsJKCimGO4 EHFksSFlG0OmIMQuJIekBO Omnfv8YrRvKy7ceWEzwEro UQqzo8fdq3fesJKdDld1ZU RgWoTaWkwwLIcwp7Utl9wh BLSgbm0bWZW7hSAhdIpaf0 M5yUAwOVMwxQWzXWRrHD3y yNZnZKJsjW0pnkzmBVCbQz FuurlrHIXsnAntynHsPk6u lEvjZFH4ZFinJ8wdcF5fKm X3AAofC7dgxR2gUNz1MKlr OCObdFX4tnB4JGWcdVMxK9 UdsV8xZDSdTA3fvqr2o9ho TDJ2FAjzMCBwOmM2ydB2KC LcwFTzWFRciAcyFPdxa903 ZDL6TdMgJLFfp1YuH3KrlP udR99ipIrvH45dQVDmiQqa tS6eaCdciY9zPuItToZaPV zseGahMU5kACRlF5dmhHDs VPObHGQmR7kfAnRwdZ6xcD vnJClqtrWkNTAbOqp5ETBs uYIdMOIgJxz5CPQsCUXlP0 7wrkjxWPX9kV8yc5hzu8Sx RItdUME9CJWxp87qLMjbcy K0LOamQb07FQnzHXU4PJag YXJ9fQ== COMMENT (test code = j7nxmKKgGHMajHS9KlVsWN 4508) Tbr4aub0AarJLkiMStRHks wBWpdzHust47yJP0nX35SP 7xAVSnWyE7MPGlthS5Tpd8 UVKfRZPckJMtI611q0leg0 vsvfGdjSE6dRckQKIjlssq DoA4EQknDLPhpapxTXi1CF cdYCGcsZS3TTBiqZDiI7Rv JBFlVT4ewkb6LEO7KJjlAU VxHgD0DGQhpYMvEXHctJrz WKbkp156SOW3XxXnPXNmax XvqQcccV5bMdAfXBWWnGtz zYUqgGYrtGR1x5Y7SJ7aQR ApseAvFPN9tCEbZGPvrn6f HZXtrY6htTFdoYXngf76MP JbDVDJtDBzBzefgQV3EM5p rFNun7NmTgHjvhUchdLaTV 55FXJonuRcs7PvmKcwXGRk qpvhlLJcLFfky6ytld7cJD CbnF9kX8PxJWMgifJqdZY7 vJ5eAVylWSSiT81wbIOoQZ VkLlxwYXJ9 CPT Code(s) (test code k1xckMUnUMVyzXM6BoLrNS = 3357) Klu4udf5JjuOBrjYEhOQhl oNLznsYans57sPV1eF24OL 0xVAVeFrZ7ROSkbeI9Xpn0 NYAgFGTacYLrN074x1tjz0 atgwXdcBC4hKlxWCYrjagv AkA7ZMhiFORisosjZVx9LR leBMQiiMM0HEIygEGrX2Fh HBLoCZ9mies5HKM4RIvtBV PvAwR5SBEkiWGxIJRpeRbl XMsxm493AGF4TlTpBPDyvq SbaOwfnH2eFmHoPKI4TFVy Z5zjTIF3 CLINICAL HISTORY (test b8wowRUoCZYgsWU2NcOyOW code = 3356) Cyc5lhs7QcjMCrjAFtHEue xFBfdtCdnb49oJW6lG11PG 3hJGPwOsW9PIJwxaZ8Fvo4 CYJwGYHahLDkQ387v6dwh0 noohWzmMK5jOmrBPVtjwqb ApY0VSsiAELudbuuRQn7IK hlBXDwiYW6WONxiCOeQ0Vf EUFzGC3yfik5EOS8SJwnZY SrTnT5HJWwxMYrAMOqaCql VDyjm297GNK6OxJnSQNxae XfrQdgqF5mJsNnOVKXwBMj siGiFXFfw4Myu9tmAZXksG RhWXP6VVHkhuNsFCZ0oUPk H3YkN6BqSEEbuz4= GROSS DESCRIPTION (test q7wbyYWsUHChwZXDPBOsH4 code = [id number]) rizzKcEPLfwTRsZ4Uefewx QOsjCS7kFO7foGjcgAKrvK PtPC6KYMNmDdHkDGKncTYu bcHmGdGrFYCryHCsoUJ8WG MmUF3jrovjIEwaMYhuUMHa geG0LNAaiFBsN8NoWYGfIH 5vqhzaVSO5WKtrhH7xqsGR GyjmKe0miDXfmGgxAcVrJb NoYXJzZXQwXGZuaWwgQXJp ESv8uT8CAkyaC57pw9P8Ok x2JSYvVPDbA7AwEL4lPSIx wVEiV64RTibfITN2LRUEFa dlFAMyGV9Ii0zoKQWzkWIn NBR6BEknjOGgQXJiGWAwNE g9MVZqJAojlKVbUA1grWxv OwxuaSvww8VliXTlLGucVG UsBZBcFGccIFQiMU7VBrDu YLH4Ksh2DQFvOIl8UTm2NX 3EGcLgRFJaRMAaZWK8WFUs UYv2RPvkYA5AIHJ7NUK4Hr R0BrN2RBV9QoTyQHZdUwVv XGYgQXJpYWwgXFxmbCBcXG 5jfVxwbGFpbiBBLiBMaXZl ef8pcXPdOI3QUAQydTWPZC E2BE6yFMANBcmjsMUdFUVe rWowKDqygR2dFB7UQQc1os PpQABmFUurycLsYXScJ6Vf gwHnHBntIFKjam4smLzmFO plPlUyTSGtj2o2gUZ8hUIp dUA9mGIpiLgqLuUkKG2qqE IlDV3oMTkdNEawilPlv8Jv OO47nSIsarQvtkJbIVG7Xc IwIFwnOTNsaXZlciIgYXJl MQGveNXqBBT7uSMnUHMapZ wgJATzWiArePzhh8YoRYEj lxYfMF9aKJA5qlykKvH3hY F3lxIwOmXvO05hkK0mvTCy N4DvZUL0uFqadKEgkgGuq2 VsnBi5pDZiCGlbAVFqrC4m kE5rMGJbCFZbivWUYddwJA UdEIqeT0KlTTCfKzGkEYyj YXIgQXJndWVsbGVzLCBQQS ocLXThVGIGJ4VxVKervPas kV1kMBAnL02bt1HTt3ZwMR SiHXjxz1soxSxfe6QrxTCy VWfhTKWwfPIhEDhnnH1hXj Ruj4msvYl0UPantlQ1JHOt fc9DUqjhfU3qXzAnl1bspS x0NJYSKtvbglG7p3vfxGgc l6CfzFIoJS1JFt4= SPECIAL STUDIES (test h0pukVTlZHIzb5rcJVBhdW code = 3376) FuZzEwMzNcZnRuYmpcdWMx UZnlmhPjIPaex4JcU4IvAn AwMFxhbnNpXGRlZmxhbmcx BHTmBBT6ioZxTEQjVSwnBQ IvFQorKr2pgJWsjYnwEfRz MRMzm4birpINhzxfsFv6q2 weSSXiQcD5mKUcTVtfD7vy hdDrqQWhE4PomNPqzOr0s6 mdZvYdMoE0hJJlIGmdL8lm bpPirRJnWMMuESu5pW07KX OjgO6awBEaMFyeduWwKbO7 CVxhDEQtWrS5DNAikGJmJB NzQ8bsBMJhOObgAPRaBFka eCBxSCB0vTbnr5H5fYVweX VswUxpVmVuKrNmEuLWf8Pd CCx8wPinB9RiREQtBqF8qI QgUGFyYWdyYXBoIEZvbnQ7 qFztqbHrt99rdJKtUDYtUD ZgAhUxkDyfVQSgXNLHz9Xr eYslEED1iDm2vWbsBnvzBU J2Crh8DV8goh55ncd0sAkg QTVxafuiWtU9AIlsFCWrlq llCOg8OXwzJHLxuNM2XZBi sZDeX4WtTJTyQJ1gflk6UV S5PLymHMAiRbL1NFHmhRPv SDCtwCgdVWxuo403MAA4Cm KaRX7xE6Lvq3X8wC0qhEHh YMJulCPkQnDsAJNmrn2jsP GzTFdpf1XrGTZ6daB1dTUg pUQvRDTtIS30Nchrd0WbCd aqb4BlM33mpYJ1BQgpa3rf PV9kInO2tvVsPHugh1xvyE 3nDoX6DOmkKK8iGD8cKIIh rO9fxtnlYQXqTyYclbjqNM LagRqfleJoXg9cpIniUKS2 TVpbG0ukpG8lHkZ4SVgoL8 ptzG6pFVh1IQcpxYW0GUJd rX8pDK5rinoee0unUKdwWW npSSJsgrC7yzB7BJDktFYa G8MfzJ6nJYPhSA1usylba1 lrGZE7CCnpBHOiJKP1QrQn TDTim2Wjqmo7QqPvc7JpmK FtEOeyP71ez919VHHqnaRs B8lumLQhtetarHOoglihOJ htfdA2DWCcJYIhRRvkSMUn XGZzMjJcbGFuZzEwMzNcaG ljaFxmMVxkYmNoXGYxXGxv O5bpWiHnC3TtCREoLpSeSV haYUofqIZifFNgrLO1cH1b LE4hYVOfrGAlX6BpBMSvce EugJPsUDN6gJNmgQKjKN1n WAcwpCYxj1mlw1FiP8eofQ eqeZS0VL9cEQIsVHMvCCmb f9AetE3fOytxrODhxwjfRV xmczIyXGxhbmcxMDMzXGhp V0egHfBwUUPugGzoAGbqy9 NoXGYxXGNmMlxmczIyXGx0 cmNoXHBhclxwYXJccGxhaW 9jXvViFuNdTzroXB9rSPNk J6fstXTnTIRaUSSvK8jqBh WljU8arWhdARsnBmIcGgCq JxMJr236kn3pGZCriFGhoz GIzRRdhU8jEUqdGQriFAuf yDQdFMhyl6kiNYWul7t5tK MqSYYfzsNxg5jzFIjuohAr BWAuaITzlTNrZDJwo30uGF jigUlxdQdpCXNkw1TtcHii s8ZpUjPiBHwjb0RtR02gkK JvbCBzbGlkZXMgcnVuIGFs d41jb6lcFUZsCtA9zXQnpC H2fBOmrVGvn9LugRymJWYr l3kxQAXuvq1hrytyhMHrd8 PbuM0pbtuhKBgozNZlqwPx FZBsc3q2xPSoKTGbSGWdJR rpqBi5YMMzu354cd6apxM8 jTUnFMD0SLasCEXmCMCrqn UgZXZhbHVhdGVkXHBsYWlu XGYxXGZzMjJcbGFuZzEwMz NcaGljaFxmMVxkYmNoXGYx ZHbxN3rmKwNqG5AjDFJhHm WbrEXsS2rltTSfYHRwEHxs XGYxXGZzMjJcbGFuZzEwMz NcaGljaFxmMVxkYmNoXGYx PSbnD5fhMvPkU8EwMJOkSm IgIFxwbGFpblxmMVxmczIy FUrdchasKCDlZJdfV0cfPs VgLXGjqVasWVnfg7BfQYFk TYUaRkyabsAqZUe6wsUmOL BhclxwbGFpblxmMVxmczIy TVtrebaiGMSaSKriZ4umEy CrTMWdaXlfJOjuv5BwVAEk XGNmMlxmczIyIEltbXVub2 mhq6EaG1cygRthkET8ZPNc C6oerBJmpQY7TWU2eD1qGO teikAtOKWob5AaTRYbRXNt UbH5tN1vVIN1XpWSdOxaLF BsYWluXGYxXGZzMjJcbGFu ZzEwMzNcaGljaFxmMVxkYm MwWIOwATcdS1nqLiHkU5Yl BXAyDdXmoUknUJnnAJt8Uk xwbGFpblxmMVxmczIyXGxh bambMOOqURosF8qjKkIbZN WmgQwoMZhbd9GrQBYbMKKa MlxmczIyIHMgTWVkaWNhbC LWUR13RJDgKWRxoBirxE5y tJJIUTCtapR6k7M7KAxgUO ZbEQe1THfkvrCgECRbiZ3n CVDhEE1fSVg7zzDbLXZgh5 QdQW6cZYTnsBTkUJV3OTLx j8UkE6Xro9KoFKCrIMCzvr 2evxEdDmHBfXXdOHPopu87 XEMgZI3bD5fuEGHcYCClbw LjcZCda1WnPAIiiLH0aCIm DT4SZpXOb27sUPZjKUZGpk NkMUJciUhvaLA4izI2mA4b LiBUaGUgRkRBIGhhcyBkZX Surj7sdfMiZTDbZVCjv2Dy dHOwoGIidnPvK8Fqz2DqWR Opep54WSrknUUrlc63BR2t T9Kil5QnsQ8xZOnbFTHio7 QlvLVgnIKiPMIwt7UnJ2tj clyeLJgpyKBhgY1jBKXfAI s8WQBcc0NvWFKwu2OvWjUd gsOaICCeMZLbBNNkjQ56KT W8bUedqMirarOrVB8gHZKx kyGsNUAaFQVnoH7dBToxuw YqRNNjqqE3b5G1CEfzUNJl bsQfKswtBWV1pbAhecV1bS SdK9ppecjmBYffDJFpx5Mb nI5yeTTYxBXox0HhcAPvdO COdZHbRC5creGqED8lQLI9 ODggKENMSUEtODgpIGFzIH A8CGynOezoRQX6mwJhKIKz h7NfMIasR6qxZ62rtNzjzU l6wRRawMmexGZqxAPsIYUl nnJ7s8I6TUWjq5JyrdjkLD BsYWluXGYyXGZzMjJcbGFu ZzEwMzNcaGljaFxmMlxkYm ThFLIpBEnhQ2syXeLeNgCx JpevWNY7pS== [id number] 14:57:26 Test Item Value Reference Range Interpretation Comments Case Report (test code Surgical Pathology = 104) Report Case: [id number] Authorizing Provider: Munir Mckeon MD Collected: 09/02/2022 02:07 PM Ordering Location: [address] Received: 09/02/2022 04:08 PM Service Pathologist: Haylie Person MD Specimen: Liver DIAGNOSIS (test code = [id number] 3220) FuZzEwMzNcZnRuYmpcdWMx IHtccnRmMVxlcGljOTYwMl kxzlNmXLPgeVQmA6Hkexaa MJvjRQ1rWB8cySyraNHmsN ZrDPLcHqMwf8qlr693vKSh y0ihGYHNeoaorMr4cXasJ9 4iz8C9DnhkO81lbCBvBTZ1 AYPuASCffOXpVMCnGHO4ZM DcuERlV8cnMROeCL3rvcon RGczJIoaLFBoeGJ6XBNdgI FsR5OeAIXqTKhgOVZbrws0 EcOyUc5apGLfhUehXVooPP JkXHBsYWluXGZzMjAgTElW ABGmECAEC4AVUUzkrLowJF ndhT8wKF8RRAwnmVr5GDFp x1FevSNcuEcgHI6cgDiew4 PhSEYolJ4dnyUytXltCOQg MCKqiOCbiaAvAKQpv3vxrC NvaWRhbCBkaWxhdGlvbiBh jgLeA00vX7OnaYprusdyd6 CnH7SffTz1RLRoJbL2IL5w dORlm0P5VulkxjLdTxE6ng UtxNuxgrljUXV4b1swjIDg XHNzdGUxODAwMFxhbnNpXG EmCkdcmvarCRDzXMM3lbKp WQKwBEooVFSaGXxoPa7faL HjtBkgDwPeUEVlk0orirOP gyhajSc5z0iaJULbOrB7gH AoQAoiT8gnhcLdpONnHADi NSs1xH09XZMewO7jmXEzFT chfdYhIlL9GRbeVHMtIpI7 FPIbaXVhLDQqN4avNUXgTL vlLUJyQTqpeTIlPFV0pBjn o6G4iNWpnWWqdWokUjXpUo OdLcOEd1GeFRt9rRlnK2Oi YSZbFgA2vOHwAEFrNGekEK AzJGCnxaN4iD37WLdowuN5 kOBfp8Ttb68xa223oD8kdT WqYUT0CODrVTPzlPIgHDTh KTF5YSPniDIgZ2hjWCTrFP 2vuhpeJEhuZRxcGVPgfFR6 AVXwuKIaL3VhGCRwXTfpVW Cggpa5VoDtCb1fmWNcmKiu ROsra7kqc6slqGRzHpp5AW ShHyDvRaybWMegv8Owx3qm FMWtdt7sIID6jBJhaCpnr7 M2yWUcAQDadMEaTUSjEM9v kBIjQHQtiB6smndlECXbIl EewqzuJOBwvXlukwNeAd5f kBkpSEF5IVsoV9ctcJ2nWh W1BGpcB1sniC1pQJe3EAtq ZQVwkKK2vzQ3NIFrvVPdV4 UptW8hDNZnYT6jexp6w2qf PLG2YZvuQSUxTdA1whT0HI PrqBZkIBGfhIwlLMvep054 JER0OkHvZQFti2KlA1YmzC kyF85rdAeeI76iQYBymTpo aW2bqAgygZ4kTrAkRpCoPU uecTrgUB4mGDErH3imxIRs GDLeBOOpD2fbGzXyhX5ldO uxGOnrguDwJKLcDgk0MVEs vHItKVIyHmp6INZaJRFnI0 3fyaduGYK0yI6gh8ddk0Sg LYzuNLX2JVNyj27mAPopfn K5BYvrSi07YBadXGC3CQfx YXJ9fQ== COMMENT (test code = c2blfVGqGDBzmAA3EyWnPJ 3329) Dqo0mwm8WwsEWzaQKtTYxe xZHxqqOdah93xGA5fO89SC 9bVBXoVyY3AIXycxK3Mxm2 CGPiRBSjmUNaG956x2ifw0 scrrStpVO7sQxaYWEdvafo IeO6NIdjOUDyacdzFLi3SZ jcGUYvmCS6ABDtuXSaF0Qi LJQkRW6ymoa9KXU6HBvhGG QiEnC3KLCziXQkAGFqoXrp LZsxv993WRT7ZfLlBJQrjf KnhTseyU2zXbReAGCEeOeq mYZxgCSicON2c4S9YQ0zJY QlqzXbOEI0xERtNDKoed3x BMJnfY8pcUXaqMOfzg92GY CcEYNFgAWnPvzccQT4WL2p zVTiz1RqKjKlneNqsaUbAQ 74FQDulrFdc9RrhIorGLBz bcrnjDEiVLtmv2zlvj9yUU WakA5aT6SeMOTdkpVtmEI8 qN3bMVfoWBJlO77sfIDuZY VkLlxwYXJ9 CPT Code(s) (test code x2aofNOhVNYpzJD1KlPaBI = 335) Ued3ovf2ZmzQXzmTHuWOkq jELwawOoie30yAR4tJ37LZ 8bPRMwZvE9SUBkcwJ0Ymv7 GIIzIQAsaMOhP331v6iod0 bbauRsnGD1rZykVRWbxgqt LhF1LQyoAVGpaqukKVz4PL etFBJtvIJ5AXVqvNGdV0Pe UQHaFG3jree2ENG7NUxyBX ZoCpJ4XBUhlHGuOOQrgQji CCbxi591NID0UaHiNAJeuw JufRkxpQ5qXeQgUXY9TNYo O9ldMNN7 CLINICAL HISTORY (test c4weuSTkKNGopDR8VcBtRY code = 3350) Ock3yme5SumGCoyLUaIZhz jNUxoiDidz01xNY1cI59JS 1qPDPvUuM3SFNzusL6Eut8 EBOhELHhxLDxQ733j7tke8 kqfcSglBF4qOrkRVGfoast NwP4QHuuPBDdprduNRb9XY fqQAEagTL4DWYxzCXeX9Xs FYNvOV5usgd2DSJ6TYzrVN PlTwU3XVVabXVrIZIaoHav TUnyb891HOC9ArXqQJJgdm IbnSagjQ5yWlMbJAUXoPOx loZlVWVou2Jzk4vyBFOviF OtXLB2SAUmyrYuCLU1sCMz M5OoS6DrSMDfmk0= GROSS DESCRIPTION (test j9nahRKnDDCayWEDXVFmI5 code = [id number]) dritZjONUlcIAnA1Rppjib UTwrIX3eRX5uzNkdnKCgiM XbED5VBYZaPwGcVBFewCSv tjMeZqKvOLGubNXwcFZ2ZV HlRT6irqbbOWbvKGixLKLs dpH3BFMepEQeE9EnMDGzGZ 8myoduDXQ8UTrlyD9cicXK OjrhXp4vfSZbfIwfHtKlQq NoYXJzZXQwXGZuaWwgQXJp DAx3xZ3AYrboU81rg8N7Kt c7NNOwOEEgU4DfED5xFAXc oESrV14XXdisZQL2LCHKXw smULXeGR2Op1bwIYOtlINg BOS8HUgvxDJsXADkHWSuAF x2CQZxJSbitKMmSH9voUkv HneisRxns5LhbPOeKDarAI EaRIXyFDblDVTcBN5VSyId ZDT6Vwm4AEIxIRx3VAx8LP 3XMkGrQGOwICDsIUM7ISFg IOq8WTnlBL3TFFD2HLI5Mf Z9BgZ4TYL7QsJbIRNqOrPk XGYgQXJpYWwgXFxmbCBcXG 5jfVxwbGFpbiBBLiBMaXZl af7tkSDxOU2LDAPlrMVEFJ G5VR8dQYAFBxvzeXMpKWZt cMvfJWctyY3uQY2GNXy0dl HfTZNtEYoqcrQcZDGdO6Bv gePaOApxWQCrtr7koEvhQZ idWaWgNGTjs3l4kFF9mRIn zXP0wAZkkNebAaCbEG2bfO UpCK7iBTtzYPxtfwMvb1Px UA43pNCncyBwreUsSNU4Wc IwIFwnOTNsaXZlciIgYXJl SNCktFIbUKT8dCXbVVJyhZ hgLOLjZrZaeSunz9FqIWZc bdKtHU6eOPE1ejfaAgT2rH E0mwJzMyYtT59vqP9smDAf I2TdOZV6rRfzbTWmxeTit1 EujGt4tXXmGVbjYSIpbC1w pH0cBJTbMXUcisUKJclzFH MkZOfzV8VqCYGnBeCbDQfb YXIgQXJndWVsbGVzLCBQQS ulVYDvNCZQG0YePAfybLmw rV4uQYHoQ27oh2SXy0XkWM NvAItgl7ygpRskl9LycVGr JIpsDFNjdBDbXNtyfN7pZb Wsc3kulIl8HEsnkvX9YVHt rw2GOyrmxQ8cHgHmm9ylkM s9DQNGYnojniE6o3qzuUxq b0GsgACaBA2MMc1= SPECIAL STUDIES (test z4lbxJLdGUJge9ywIFWkaB code = 3376) FuZzEwMzNcZnRuYmpcdWMx ODnogiPyJBmqo6MaE0ArZm AwMFxhbnNpXGRlZmxhbmcx VBNeGHG6ccVuHCSqVEsjEM EpPJvjNl5duHKcgJpbAuLf CMOzt8mwvyRWourtyHq6k4 zlXESzHzV2vVEfVYxuB1mm oyCtfFZxD4ByfPReiSk8g7 rgNxDsShL2aPWwQWuwG5bb upYfiTFxQDPbLTf6eX27GP FvyW2kcNWuFKkoceDlNkI4 FJbhPBPxDkJ1JPBjnOXnKL XhG7tzDLHfXMcmVFGoVDna iDNxBBA3zYede3K6oGQqiJ EyrVbwLaIyKyUeWuNYb3Bz UUt1bBudK7IrEYJqGcJ6oD QgUGFyYWdyYXBoIEZvbnQ7 uDhystJlm75snDVxXKKiKA GvXpQwsZjsKDTqXEOEh0Qu vOgxJHZ0bNg8aRmjWdldSP D3Qpa6EG9lcg03prd8sJdy FWOpeydgWuH7EGhoHQKuet grFVa3LGalGCKvbPW5HOUe nJPiK8IjAYPwPW5ehrf6GB U5ZDkmMOIyRuA6ZZSubOVb LAUorOakXMbuf837HLV1Dx IsXN6yL2Kvh1X7vQ3clCWp YYCjhIOoNcLoPOZvul2mzZ UiTVdqp3SjYMF1nlL5rUVx eSOtNGPwJG99Fkddx4EmXa phn5PfX03ywSP0NRfdj1qs UI1tBvQ1dxJyVEotl4kehM 5rVuA5FYtfYY3gEA6bZXDw rW7uefjfHMAyUyIjwnqjNR BbaTtwmkDeUl7qjSfqTYA6 SWfiW1tfsI5tUfQ6LVjgU1 xynK0uUNl1TUmryED9YUZj qE9pBD6dbqtit3hoIVzqNS swLRGpwaN7jkE6RYVrqQMr J3NlvL7yRBVpAO3zdqhpe3 faGTM5XJxoXPAnFSL6MnIr OZTpu3Ejlec5IlLnm7MleE IjACatE91pu586PFEckfNg A8vmsRNjzlbljXXboggdBY ifbcD2VKIhFNGiMFbgIBTj XGZzMjJcbGFuZzEwMzNcaG ljaFxmMVxkYmNoXGYxXGxv D3lwRePsF0GeMCIzOsWbHT wtYMrthPKfwFBexDI5qT7b MW0qRZIubTTgZ3TyIMLkxi PcbTYiFAA3jVNoeAZqYB2q EIsfzJOod5umg0PnX5rdoV cblPJ7ZE1lAZKaBZGtIFdg a0CjjG3tSsipmISegmouKY xmczIyXGxhbmcxMDMzXGhp M7tpLoBgCNLdkPrbGDmqp1 NoXGYxXGNmMlxmczIyXGx0 cmNoXHBhclxwYXJccGxhaW 1mEuBoAxPjNblaRV5lAIOq J8woeNZfNUQtCVUoG1dvOz ZdaP7evBduKRheMoGuXqKu PoQCq168jy3dHEKymDWqwg GVfCXeyD9zYTcdYQvrWEal sEEhYYtsm4swJAQmz3x8hC KlHMKzwbVoh7rnNByetmSs FYZbsHEeiKEeAWSih95fZY khdUcwhIzmKZCpe8VtdFyw v4WvUtKjXCclw4SzQ92efS JvbCBzbGlkZXMgcnVuIGFs y72ms6hsYZQgJfF0tZIfpU S3bOHnpLKoi5LxgIwyUQQd i0isWZBsnd7oqdjplSDeu4 XmiQ7gnhatUMphfGPxjkDi MAHdm1x9aADxMQNpZSLqAX oxtOb2ZDWat282gz6gkgV1 jGQnGMF9JPxtTWCiAFFeio UgZXZhbHVhdGVkXHBsYWlu XGYxXGZzMjJcbGFuZzEwMz NcaGljaFxmMVxkYmNoXGYx UEsnJ4gkDrZfV4SjKETdWo MpcWTaY5fbxBBuGHToIDso XGYxXGZzMjJcbGFuZzEwMz NcaGljaFxmMVxkYmNoXGYx DIkeO8ibMbCxA7XwVNLyQc IgIFxwbGFpblxmMVxmczIy KWckxrpzUUKmIYllB3erGw MeZWSacDslUZizh1KrPEZj WEZxUrgbtjEmFXz1fdHtLF BhclxwbGFpblxmMVxmczIy EUtfriutXVZwLQeoC2ieTg IiCOBpnDerDWpnz1DsEKBx XGNmMlxmczIyIEltbXVub2 rqh4IiR4xmiNbffIP0QLMs N1svnZTiiJJ3CWL3iG2rDA hvebPdPHIxu8KsNUHoDKGj IzP8bV7tKML1NhVUbJgiTS BsYWluXGYxXGZzMjJcbGFu ZzEwMzNcaGljaFxmMVxkYm NhODVtZBkvC1yxDuGbC5Mr JEXaQrNvtHxgYQmdYVy5Gq xwbGFpblxmMVxmczIyXGxh dvwxNZPtQZkiD3ucOkDlOL OlnBuhEFfev6FuMPWfGCGv MlxmczIyIHMgTWVkaWNhbC XDLH65LJMsKUWfsZhuvS7c iPGQHBUtmuX0h5I9IAynHD AzLZq5OVrjppOmLKRhwD2h LUGmGT2bAHc1fwCcWWCio4 YkDT5qCQJrnACrWKJ2KTNn o9AwO5Mat4SvLGCgSRUmyt 7jfnVdUpRDpYBdXQQote99 NPNcUP7cK8ojOATnGYYefi BalZXkh3IcTFIxyYE0nLTa JB1LRxDHr65aGTOmIWMBtk MySHGapZoweXY0ahA2kZ1h LiBUaGUgRkRBIGhhcyBkZX Dhcv0ujaAoUPMdNYErw3Av fBJhfSEcjvCoF5Dks5LuES Xsck53UZygkUNesf66FD2p N8Ufg9XngA5kJUluVWJdi8 RusHGlzTMbEXTaa2SyH3xr exsuTPaayIEntW0sUGUlEL x0ZQWvb2EvKZDfc5RkJrZf qwOvBVGqHZEsHVWbxQ02LM O0oEamxYtooeEhHE3rQEZx ufHiJIAlVAXowH6lPKqtya EjCOZeqgG8f2D0KNwrQMOw ywQeJiqtSPJ8wzNdhcW2nK PcW3ayyagxIGhqFTDgx9Zg uR2ctWLFmHNwb7HqgZNohJ SYyJGpST3zunZyDN0gNYZ1 ODggKENMSUEtODgpIGFzIH Q1AQaaRgqdWJS7ylDpRVSa o0OcCWzwR6epM77bjRtisH h2eKQiyCuyfCJwmUTwNJNw otG2w3Y1ZMMqn3AhhqgmDM BsYWluXGYyXGZzMjJcbGFu ZzEwMzNcaGljaFxmMlxkYm EsQXVyVGrtL2dqZjDfZxFa WieiIIX7fV== [facility] [id number] 14:57:26Surgical Pathology Report Case: [id number] Authorizing Provider: Munir Mckeon MD Collected: 09/02/2022 02:07 PM Ordering Location: [address] Received: 09/02/2022 04:08 PM Service Pathologist: Haylie Person MD Specimen: Liver LIVER, BIOPSY:-Negative for malignancy, see comment-Perivenular sinusoidal dilation and congestion, suggestive of venous outflow obstruction Signing Pathologist Direct Phone Line: [phone] signed by Haylie Person MD on 09/05/2022 at 2:57 PMClinical history of pancreatic adenocarcinoma is noted. The biopsy may not be mechanical service representative of the targeted lesion. Clinical correlation is recommended.[id number] metastasis, suspect pancreatic cancerA. Liver.Received in formalin labeled with the patient's name, medical record number and "liver" are 4 yuen, threadlike soft tissue cores measuring up to 1.1 cm in length, which are submitted in toto in A1.HOLLY Quiroz HT (ASCP)The interpretation of this case included the useof immunohistochemistry or special stains.Control Slides Examined: In-house known positive controls were evaluated along with the test tissue. These control slides run alongside of the patients sample show appropriate staining. Internal positive and negative controls when available are evaluated Immunohistochemistry technical testing was performed at [facility], Pathology Laboratory where it was developed [...] laboratory is certified under the Clinical Laboratory ImprovementAmendments of 1988 (CLIA-88) as qualified to perform high complexity clinical laboratory testing.TISSUE [id number] 11:07:58Surgical Pathology Report Case: [id number] Authorizing Provider: Effie Pablo MD Collected: 09/01/2022 03:53 PM Ordering Location: [address] Received: 09/02/2022 11:02 AM Service Pathologist: Radha Zambrano MD Specimen: Pancreas, Head, pancreas head mass bx via FNA PANCREAS HEAD MASS, FINE-NEEDLE ASPIRATION BIOPSY- Invasive adenocarcinoma, well differentiated with clear cell morphology Signing Pathologist Direct Phone Line: [phone] signed by Radha Zambrano MD on 09/05/2022 at 11:07 AMEndoscopy report reviewedTumor cellularity approximately 60% of the tissue core involved by tumorClinician notified Dr. Pablo, was informed by secure [facility] email on 09/05/2022 at 11:10 [id number] duct obstructionA. Pancreas, Head.Received in formalin labeled with the patient's name, medical record number and "pancreas head mass" is a 1.9 x 0.7 x 0.2 cm aggregate of yuen-red, threadlike soft tissue, which is submitted in toto in A1.HOLLY Quiroz HT (ASCP)PerformedThe interpretation of this case included the use of immunohistochemistry or special stains.Control Slides Examined: In-house known positive controls were evaluated along with the test tissue. These control slides run alongside of the patients sample show appropriate staining. Internal positive and negative controls when available are evaluated Immunohistochemistry technical testing was performed at [facility], Pathology Laboratory where it was developed [...] qualified to perform high complexity clinical laboratory testing.[facility], Department of Pathology, [address] [place] [address], [facility] of [facility], [address] [place] [address], RmnusvKaiser [facility], Department of Pathology, [address] [place] [address], IFHXX [id number] 00:00:54 Test Item Value Reference Range Interpretation Comments CULTURE (BEAKER) (test No growth in 5 days code = 1095) BLOOD [id number] 00:00:51 Test Item Value Reference Range Interpretation Comments CULTURE (BEAKER) (test No growth in 5 days code = 1095) CT, CHEST, WITH [id number] 08:50:00Unlisted Reason for Exam - Click Yes and Enter Reason Below->No [facility] 1970 Sex: MFINAL [...] coronary artery atherosclerotic calcifications. Signed: Lefty Cisneros [facility] Verified Date/Time: 09/03/2022 08:50:28 [facility] chest with IV contrast 2022-09-03 08:50:00FINAL REPORT TECHNIQUE: CT scan of the chest WITH intravenous contrast. Dose modulation, iterative reconstruction, and/or weight-based [...] to the chest.2. No acute pulmonary parenchymal process.3. Few scattered coronary artery atherosclerotic calcifications. Signed: Lefty Cisneros [facility] Verified Date/Time: 09/03/2022 08:50:28 Electronically signed by: Romina RAINES 09/03/2022 08:50 [facility], BIOPSY, [id number] 17:38:00Reason for exam:- >suspect pancreatic cancer, liver metastasis biopsy. [facility] : 1970 Sex: MFINAL REPORT Procedure: Ultrasound-Guided Core Random Hepatic Biopsy: Pre/post-procedurediagnosis: Hepatic lesions Fashion Marketer: Sean Spain MD Assistants: none Sedation: Moderate [...] MDReport Verified Date/Time: 09/02/2022 17:38:03 Reading Location: [place] [address] Angio Body Reading Room US liver [id number] 17:38:00FINAL REPORT Procedure: Ultrasound-Guided Core Random Hepatic Biopsy: Pre/post-procedure diagnosis: Hepatic lesions Fashion Marketer: Sean Spain MD Assistants: none Sedation: Moderate [...] were delivered to pathology in formalin solution. Estimated blood loss: Less than 5 cc. Technique/findings: Informed written consent was obtained. Discussion of risks, benefits, and alternatives were made with the patient. The patient expressed understanding and agreed to proceed. A universal timeout was performed prior to starting the procedure. The right upper quadrant was prepped and draped in sterile fashion. Initial ultrasound images demonstratesingle subtle hypoechoic area within the right hepatic lobe which corresponds to the lesion noted onthe prior ultrasound examination from 08/30/2022. Differential considerations for this lesion include solid lesion versus focal fatty sparing. This lesion was targeted for percutaneous biopsy. Numeroussmall scattered lesions were noted on the prior MR which are not visualized sonographically. 1% lidocaine was used for local anesthesia. Using ultrasound guidance, following acquisition of permanent matt ges, a 17-gauge introducer needle was advanced to the margin of the lesion. A 18-gauge core biopsy needle was used coaxially and four passes were made. The introducer needle was removed and hemostasis achieved with manual compression. Post biopsy images demonstrate no evidence of hematoma or other immediate complication. The patient held the procedure well and left the department in stable condition.Impression: In this patient with history of scattered small hepatic lesions on prior MRI examination, a single hypoechoic lesion is identified within the right hepatic lobe measuring up to 1.6 cm whichmay represent a solid lesion versus focal fatty sparing. Technically successful ultrasound-guided percutaneous core biopsy of the single sonographically evident lesion within the right hepatic lobe as detailed above. Signed: Sean Spain MDReport Verified Date/Time: 09/02/2022 17:38:03 Reading Location: [place] [address] Angio Body Reading Room [facility] [id number] 10:21:04 Test Item Value Reference Range Interpretation [...] Specimen slightly (test code = 347) hemolyzed Cephalometric Analyst ID - KARL LBASIC METABOLIC [id number] 10:20:45 Test Item Value Reference Range Interpretation [...] eGF R is based on the CKD-EPI 202 equation that d oes not use a race coefficientEsti mated GFR is not as accur ate as Creatinine Bessy hartman in predicting glom erular filtration rate . Estimated GFR is not appl icable for dialysis patien ts Cephalometric Analyst ID - KARL [id number] 10:04:20 Test Item Value Reference Range Interpretation Comments Cytology (test code = See Separate Report 2625) [facility] 10:04:20 Test Item Value Reference Range Interpretation Comments Cytology (test code = See Separate Report 2629) [facility] 10:04:20 Test Item Value Reference Range Interpretation Comments Cytology (test code = See Separate Report 2629) [facility] [id number] 10:04:20 Test Item Value Reference Range Interpretation Comments CYTOLOGY RESULT POINTER See Separate Report (BEAKER) (test code = 2629) [id number] 09:55:56 Test Item Value Reference Range Interpretation [...] 0-0 (BEAKER) (test code = 413) [place], [id number] 16:42:00Reason for exam:->ABNORMAL IMAGING [facility] : 1970 Sex: MAn imaging unit was utilized for this procedure. No radiologist interpretation was requested. Refer to the EMR for findings. Refer to PACS for any patient radiation dose information.CT, [id number] 13:38:00Unlisted Reason for Exam - Click Yes and Enter Reason Below->NoProtocol please specify:->Multiphase PancreasWill this procedure require oral contrast?->No [facility] 1970 Sex: MFINAL REPORT TECHNIQUE: CT [...] acute interstitial edematous pancreatitis Signed: Madhu Deleon MDReport Verified Date/Time: 09/01/2022 13:38:32 CT ABDOMEN/PELVIS WITH & WITHOUT IV CONTRAST Multiphase Pancreas 2022-09-01 13:38:00FINAL REPORT TECHNIQUE: CT of the abdomen WITHOUT and WITH intravenous contrastand WITHOUT oral contrast. Dose modulation, iterative reconstruction, and/or weight-based adjustmentof the mA/kV was utilized to reduce the [...] 1.7 cm in segment VII on axial arterial phase image 21 are most consistent with metastases. The gallbladder is distended, likely due to the biliary obstruction. Moderate to severe intrahepatic ductal dilation. An arterially hy perenhancing observation at the periphery of segment III which is wedge-shaped and most likely perfusional. SPLEEN: No splenomegaly.PANCREAS: A mass in the pancreatic head measures approximately 1.9 x 3.1 cm. This mass abuts the superior mesenteric vein by less than 90 degrees, abuts the portosplenic c onfluence by less than 90 degrees, and abuts the main portal vein by less than 90 degrees. The gastroduodenal artery is encased. No involvement of the rest of the abdominal vasculature. There is mild fat stranding around the pancreatic tail. ADRENALS: No adrenal nodules.KIDNEYS/URETERS: No hydronephrosis, stones, or solid mass lesions. PERITONEUM/RETROPERITONEUM: No free air or fluid.LYMPH NODES: No lymphadenopathy.VESSELS: Unremarkable. GI TRACT: No distention or wall thickening. Diverticulum of the second portion the duodenum. Moderate diverticulosis of the sigmoid colon. The appendix is normal. BONES AND SOFT TISSUES: Bilateral gynecomastia. Grade 1 anterolisthesis of L5 on S1 with bilateral Q1ajahfwwlguvvg. IMPRESSION: 1.A mass in the pancreatic head measures approximately 3.1 cm and abuts the superior mesenteric vein, portosplenic confluence, and main portal vein with encasement of the gastroduodenal artery. The rest of the abdominal vasculature is spared. 2.Liver metastases measure up to1.7 cm. 3.The mild fat stranding around the pancreatic tail is most concerning for acute interstitial edematous pancreatitis Signed: Madhu Deleon [facility] Verified Date/Time: 09/01/2022 13:38:32 [facility] PANEL 2022-09-01 05:55:26 Test Item Value Reference Range Interpretation [...] code = 144 U/L 6-55 H 347) Cephalometric Analyst ID - BSBASIC METABOLIC [id number] 05:55:25 Test Item Value Reference Range Interpretation [...] eGF R is based on the CKD-EPI 2021 equation that d oes not use a race coefficientEsti mated GFR is not as accur ate as Creatinine Bessy minnie in predicting glom erular filtration rate . Estimated GFR is not appl icable for dialysis patien ts Cephalometric Analyst ID - BSPROTHROMBIN TIME/[id number] 05:18:22 Test Item Value Reference Range Interpretation Comments PROTIME (BEAKER) 15.0 seconds 11.9-14.2 H (test code = 759) INR (BEAKER) (test 1.21 See_Comment [Automat ed message] code = 370) The system [employer] generated this result transmitted ref erence range: <=5.90. The reference range was not used to int erpret this result as normal/abnormal . RECOMMENDED COUMADIN/WARFARIN INR THERAPY RANGESSTANDARD DOSE: 2.0 - 3.0 Includes: PROPHYLAXIS for venous thrombosis, systemic embolization; TREATMENT for venous thrombosis and/or pulmonary embolus.HIGH RISK: Target INR is 2.5-3.5 for patients with mechanical heart valves.CBC W/PLT COUNT & AUTO [id number] 05:04:55 Test Item Value Reference Range Interpretation [...] SARS-Co V-2 (test code = target nucleic 69835-4) acids are not detected in thi s [...] om SARS-CoV-2 in a nasopharyngeal swab specimen colle bell from individual s suspected of COVID-19 [...] revoked sooner. Fact Sheet for Healthcare Providers: https://www.redealize/Documents/Xp ert%20Xpress%20SAR S%20CoV-2/Fact%20S heets/302-3802%20S ARS-COV-2%20HEALTH CARE%20PROVIDERS%2 0FACT%20SHEET.pdf Fact Sheet for Healthcare Patients: https://www.[employer]alize/Documents/Xp ert%20Xpress%20SAR S%20CoV-2/Fact%20S heets/302-3801%20S ARS-COV-2%20PATIEN T%20FACT%20SHEET.p df Lab Interpretation Normal (test code = 98854-4) [facility]Asymptomatic ONLY)2022-08-31 15:20:44 Test Item Value Reference Interpretation Comments Range SARS-COV2/RT-PCR Negative Negative The SARS-Co V-2 (test code = target nucleic 25766-8) acids are not detected in thi s [...] revoked sooner. Fact Sheet for Healthcare Providers: https://www.redealize/Documents/Xp ert%20Xpress%20SAR S%20CoV-2/Fact%20S heets/302-3802%20S ARS-COV-2%20HEALTH CARE%20PROVIDERS%2 0FACT%20SHEET.pdf Fact Sheet for Healthcare Patients: https://wwwHeliKo Aviation Services/Documents/Xp ert%20Xpress%20SAR S%20CoV-2/Fact%20S heets/302-3801%20S ARS-COV-2%20PATIEN T%20FACT%20SHEET.p df Lab Interpretation Normal (test code = 14346-7) [facility] (Asymptomatic ONLY)2022-08-31 15:20:44 Test Item Value Reference Interpretation Comments Range SARS-COV2/RT-PCR Negative Negative The SARS-Co V-2 (test code = target nucleic 40158-7) acids are not detected in thi s [...] individual s suspected of COVID-19 by the healthcare provider. STEVENSON (test code = This [...] revoked sooner. Fact Sheet for Healthcare Providers: https://www.[employer]ize/Documents/Xp ert%20Xpress%20SAR S%20CoV-2/Fact%20S heets/302-3802%20S ARS-COV-2%20HEALTH CARE%20PROVIDERS%2 0FACT%20SHEET.pdf Fact Sheet for Healthcare Patients: https://wwwHeliKo Aviation Services/Documents/Xp ert%20Xpress%20SAR S%20CoV-2/Fact%20S heets/302-3801%20S ARS-COV-2%20PATIEN T%20FACT%20SHEET.p df Lab Interpretation Normal (test code = 43078-5) [facility]OV[facility] ([facility])2022-08-31 15:20:44 Test Item Value Reference Range Interpretation Comments SARS-COV2/RT-PCR Negative Negative The SARS-Co V-2 target (test code = nucleic acids a re not 3968021) detected in thi s specimen. Negative result [...] This SARS CoV-2 test is a rapid, real-porter e [...] revoked sooner. Fact Sheet for Healthcare Providers: https://www.[employer] m/Documents/Xpert%20Xpress%20SARS%20CoV-2/Fact%20Sheets/302-3802%89YODN-GOQ-1%20 HEALTHCARE%20PROVIDERS%20FACT%20SHEET.pdf Fact Sheet for Healthcare Patients: https://www.[employer]/Documents/Xpert%20Xp ress%20SARS%20CoV-2/Fact%20Sheets/302-3801%92VQGC-LXL-6%20PATIENT%20FACT%20SHEET .pdfU/S, ABDOMINAL, [id number] 14:32:00Reason for exam:->abn lft [facility] 1970 Sex: MFINAL [...] signed by: MAHIN CHOW M.D.on 08/31/2022 02:32 PMUS abdomen [id number] 14:32:00FINAL REPORT Abdominal ultrasound dated 08/31/2022 Clinical information:abn lftComment: Real-time transabdominal ultrasound was performed. Liver is enlarged and measures 21 cm in length. The echogenicity of the liver is increased. A questionable 2.4 x 2.3 x 2.2 cm hyperechoic focus is seen in the left hepatic lobe but. 1.5 x 1.4 x 1.6 cm hypoechoic focus is seen in the right hepatic lobe but. Spleen is enlarged measuring 12.5 cm in length. Gallbladder is distended. No gallstone, gallbladder wall thickening, or pericholecystic fluid collection is present. Moderate to severe biliary dilatation is seen. Common bile duct measures 12 mm in diameter. Main portal vein measures 11 mmin diameter. Pancreas is incomplete visualized. A 3.2 x 2.8 x 2.7 cm mass is seen in the head of thepancreas. Right kidney measures 11.2 x 5.9 x 5.1 cm. Left kidney measures 11.1 x 5.0 x 5.9 cm. Echogenicity of both kidney is normal. No hydronephrosis or solid mass seen in either kidney. No cyst is se en in either kidney. No ascites is present in the abdomen. Abdominal aorta is normal in caliber. IVCand Hepatic veins are patent. Impression: 1. Hepatosplenomegaly.2. Hypoechoic focus in the right hepatic lobe and hyperechoic focus in the left hepatic lobe.3. Mass lesion in the head of the pancreas. R ecommend follow-up with CT or MR of abdomen with with pancreatic protocol.4. Biliary dilatation. Signed: Mahin Chow MDR[facility]ort Verified Date/Time: 08/31/2022 14:32:46 [facility]ysCOMPREHENSIVE METABOLIC [id number] 14:29:50 Test Item Value Reference Range Interpretation [...] not appl icable for dialysis patien ts Cephalometric Analyst ID - MITCHCBC W/PLT COUNT & AUTO [id number] 14:16:27 Test Item Value Reference Range Interpretation [...] (BEAKER) (test code = 2801) MR, ABDOMEN, [id number] 09:55:00Unlisted Reason for Exam - Click Yes and Enter Reason Below->YesUnlisted Reason for Exam->pancreatic cancer [facility] : 1970 Sex: MFINAL [...] 0.9 cm in segment VII on series [id number] image 26. BILIARY: The gallbladder is distended [...] MDReport Verified Date/Time: 08/31/2022 09:55:55 Reading Location: [facility] Diagnostic Imaging Reading Room - [place] [address] MR abdomen without IV contrast [id number] 09:55:00FINAL REPORT TECHNIQUE: MRI of the abdomen and MRCP WITHOUT intravenous contrast. 3- D volume reconstructions were obtained to evaluate the biliary ductal system. INDICATION: Unlisted Reason for Exampancreatic cancer. COMPARISON: None. FINDINGS: ABSENCE OF INTRAVENOUS CONTRAST DECREASES SENSITIVITY FOR DETECTION OF FOCAL LESIONS AND VASCULAR PATHOLOGY. LOWER THORAX: Unremarkable. LIVER: Mild loss of signal in the liver on out of phase imaging. There are several (at least 8) foci of intermediate T2 hyperintensity with restricted diffusion in both hepatic lobes which measure up to0.9 cm in segment VII on series [id number] image 26. BILIARY: The gallbladder is distended [...] dilation.SPLEEN: 14.4 cm splenomegaly.PANCREAS: Areas and abrupt t ransition in the main pancreatic duct but no definite pancreatic ductal dilation. The abnormal signal in the pancreatic head measures 4 cm. ADRENALS: No adrenal nodules.KIDNEYS/URETERS: No hydronephrosis or solid mass lesions. PERITONEUM/RETROPERITONEUM: No free fluid.LYMPH NODES: No lymphadenopathy.VE SSELS: The main portal vein and portal splenic [...] ductal cutoff but no significant ductal dilation. Thereis at least abutment of the main portal vein and portosplenic confluence by the pancreatic head tumor, and there is narrowing in this region which suggests the possibility of encasement. This could be better evaluated on a contrast-enhanced examination. 3.Mild diffuse fatty infiltration of the liver Signed: Madhu Deleon MDReport Verified Date/Time: 08/31/2022 09:55:55 Reading Location: [facility] Diagnostic Imaging Reading Room - [place] [address] [facility] Urinalysis with Microscopic If [id number] 07:12:10 Test Item Value Reference Range Interpretation Comments Color, UA (test code = Yellow 5778-6) Clarity, UA (test code = Clear 5767-9) Specific Evans, UA (test 1.033 1.001-1.035 code = 5811-5) pH, UA (test code = 5.5 5.0-8.0 5803-2) Protein, UA (test code = 20 mg/dL Negative A 86701-5) Glucose, UA (test code = Negative Negative 365) Ketones, UA (test code = Negative Negative 2514-8) Bilirubin, UA (test code = Negative Negative 00284-3) Blood, UA (test code = Negative Negative 18333-8) Nitrite, UA (test code = Negative Negative 5802-4) Leukocytes, UA (test code Negative Negative = 5799-2) Urobilinogen, UA (test 0.2 0.2-1.0 code = 51550-9) Specimen Source (test code = 2795) STEVENSON (test code = STEVENSON) Cephalometric Analyst ID - [auto]Cephalometric Analyst ID - tech Lab Interpretation (test Abnormal code = 11765-7) [facility] If [id number] 07:12:10 Test Item Value Reference Range Interpretation Comments Color, UA (test code = Yellow 5778-6) Clarity, UA (test code = Clear 5767-9) Specific Evans, UA (test 1.033 1.001-1.035 code = 5811-5) pH, UA (test code = 5.5 5.0-8.0 5803-2) Protein, UA (test code = 20 mg/dL Negative A 31615-4) Glucose, UA (test code = Negative Negative 365) Ketones, UA (test code = Negative Negative 2514-8) Bilirubin, UA (test code = Negative Negative 22395-2) Blood, UA (test code = Negative Negative 15653-5) Nitrite, UA (test code = Negative Negative 5802-4) Leukocytes, UA (test code Negative Negative = 5799-2) Urobilinogen, UA (test 0.2 0.2-1.0 code = 70233-0) Specimen Source (test code = 2795) STEVENSON (test code = STEVENSON) Cephalometric Analyst ID - [auto]Cephalometric Analyst ID - tech Lab Interpretation (test Abnormal code = 56979-0) [facility] with [facility] If [id number] 07:12:10 Test Item Value Reference Range Interpretation Comments Color, UA (test code = Yellow 5778-6) Clarity, UA (test code = Clear 5767-9) Specific Evans, UA (test 1.033 1.001-1.035 code = 5811-5) pH, UA (test code = 5.5 5.0-8.0 5803-2) Protein, UA (test code = 20 mg/dL Negative A 64655-4) Glucose, UA (test code = Negative Negative 365) Ketones, UA (test code = Negative Negative 2514-8) Bilirubin, UA (test code = Negative Negative 00337-9) Blood, UA (test code = Negative Negative 74313-1) Nitrite, UA (test code = Negative Negative 5802-4) Leukocytes, UA (test code Negative Negative = 5799-2) Urobilinogen, UA (test 0.2 0.2-1.0 code = 65720-3) Specimen Source (test code = 2795) STEVENSON (test code = STEVENSON) Cephalometric Analyst ID - [auto]Cephalometric Analyst ID - tech Lab Interpretation (test Abnormal code = 23710-3) [facility] IF [id number] 07:12:10 Test Item Value Reference Range Interpretation [...] = 463) SOURCE(BEAKER) (test code = 2795) Cephalometric Analyst ID - [auto]Cephalometric Analyst ID - techUrinalysis Microscopic [id number] 07:11:42 Test Item Value Reference Range Interpretation Comments RBC, UA (test code = 1 See_Comment [Autom ated 25726-4) message] The system which generated this result [...] (test Occasional None Seen A code = 07154-3) STEVESNON (test code = STEVENSON) Cephalometric Analyst ID - tech Lab Interpretation Abnormal (test code = 59612-6) [facility] [id number] 07:11:42 Test Item Value Reference Range Interpretation Comments RBC, UA (test code = 1 See_Comment [Autom ated 30254-5) message] The system which generated this result [...] (test Occasional None Seen A code = 80268-1) STEVENSON (test code = STEVENSON) Cephalometric Analyst ID - tech Lab Interpretation Abnormal (test code = 42957-0) [facility] [id number] 07:11:42 Test Item Value Reference Range Interpretation Comments RBC, UA (test code = 1 See_Comment [Autom ated 00652-2) message] The system which generated this result [...] (test Occasional None Seen A code = 75074-2) STEVENSON (test code = STEVENSON) Cephalometric Analyst ID - tech Lab Interpretation Abnormal (test code = 79377-5) [facility] [id number] 07:11:42 Test Item Value Reference Range Interpretation Comments RBC UA (BEAKER) (test code = 519) 1 /HPF WBC UA (BEAKER) (test code = 520) 1 /HPF CRYSTALS, URINE (BEAKER) (test Occasional None Seen A code = 1521) Cephalometric Analyst ID - techCOMPREHENSIVE METABOLIC [id number] 04:25:49 Test Item Value Reference Range Interpretation [...] not appl icable for dialysis patien ts Cephalometric Analyst ID - MARCOCBC (HEMOGRAM ONLY)2022-08-30 03:49:43 Test [...]
[2023-08-13] MEDS ORDERED: NA CHLORIDE 0.9% 500 ML ONE ×3 (10:34→12:07)
--- NOTE | 2023-08-13 10:48 | RAD REPORT ---
EXAM DESCRIPTION: RADChest Single View08/13/2023 10:23 am CLINICAL HISTORY: sepsis COMPARISON: Chest Single View dated 08/01/2023; Chest Single View dated 07/12/2023; Chest Pa And Lat (2 Views) dated 02/08/2018 TECHNIQUE: Portable AP view of the chest. FINDINGS: Right chest wall port in place. The lungs are clear. No pneumothorax or effusion. The he art is mildly enlarged. Some apparent mediastinal widening favored to relate to patient's rotation as well as aortic tortuosity. Please correlate clinically. IMPRESSION: No acute cardiopulmonary process. Findings as above.
[2023-08-13 10:53] LABS: Absolute Lymphocytes (CBC) 0.3 K/uL (0.7-4.9); Hematocrit 17.8 % (39.6-49.0); Lymphocytes % 1.6 % (15.3-44.8); MCV 74.7 fL (80-100); MPV 8.8 fL (7.6-11.3); Platelets 132 thou/uL (152-406); RBC Red Blood Cell Count 2.39 M/uL (4.33-5.43)
[2023-08-13 11:06] LABS: Protime INR 2.1
[2023-08-13] MEDS ORDERED: NA CHLORIDE 0.9% 1,000 ML ONE (11:09)
[2023-08-13] MEDS ORDERED: CEFEPIME 1 GM/VIAL ONE (11:09)
[2023-08-13] MEDS ORDERED: NA CHLORIDE 0.9% 100 ML ONE (11:09)
[2023-08-13 11:14] LABS: Specific Gravity 1.022 (1.005-1.030); Urine Bacteria None Seen /HPF (<20); Urine Bilirubin NEGATIVE (Negative); Urine Blood Negative (Negative); Urine Clarity Extremely Turbid (Clear); Urine Color Yellow (Yellow); Urine Glucose NEGATIVE (Negative); Urine Mucus Slight /HPF (None Seen); Urine Protein 1+ (Negative); Urine RBC <5 /HPF (None Seen); Urine Urobilinogen 2+ (Normal); Urine pH 5.5 (5.0-7.0)
[2023-08-13 11:19] LABS: Albumin 1.7 g/dL (3.4-5.0); Bilirubin Total 1.3 mg/dL (0.2-1.0); Potassium 3.8 mEq/L (3.5-5.1); Protein, Total 5.2 g/dL (6.4-8.2); Thyroid Stimulating Hormone 1.3 uIU/mL (0.358-3.740)
[2023-08-13 12:01] LABS: Blood Morphology Comment NOTED (NOT SEEN); Platelet Estimate ADEQ
[2023-08-13 12:02] LABS: Anisocytosis SLIGHT; Hypochromasia 1+; Ovalocytes 1+
[2023-08-13 12:03] LABS: Dohle Bodies PRESENT
[2023-08-13] MEDS ORDERED: HYDROCORTISONE SUC 100 MG INJ ONE (12:07)
--- NOTE | 2023-08-13 12:31 | ER ---
Nurse's Notes [facility] Name: Mark Graham Age: 53 yrs Sex: Male : 1970 Arrival Date: 08/13/2023 Time: 10:05 Bed 4 Private MD: Diagnosis: Other specified sepsis-Enterococcus faecalis and Non-beta hemolytic strep;Anemia in neoplastic disease;Other specified diseases of biliary tract-stent;Pancreatic cancer Presentation: 08/13 10:11 Chief complaint: EMS states: Generalized weakness that is worse today, has pancreatic hb cancer, last chemo was 2 weeks ago. Recently inpatient with UTI and sepsis. AOx4, BP 70/40, HR 110s, SpO2 100% on RA, T 99, BGL 163. NS 1L to 18g LFA. Coronavirus screen: At this time, the client does not indicate any symptoms associated with coronavirus-19. Ebola Screen: No symptoms or risks identified at this time. Initial Sepsis Screen: Does the patient meet any 2 criteria? Mean Arterial Pressure (MAP) < 65. HR > 90 bpm. Yes Does the patient have a suspected source of infection? No. Patient's initial sepsis screen is negative. Risk Assessment: Do you want to hurt yourself or someone else? Patient reports no desire to harm self or others. Onset of symptoms was August 13, 2023. 10:11 Method Of Arrival: EMS: [facility] 10:11 Acuity: JAZLYN 2 hb Triage Assessment: 10:16 General: Appears in no apparent distress. ill, Behavior is cooperative, flat. Pain: hb Pain currently is 2 out of 10 on a pain scale. EENT: No signs and/or symptoms were reported regarding the EENT system. Neuro: Level of Consciousness is obeys commands, lethargic, Oriented to person, place, time, situation. Cardiovascular: Patient's skin is warm and dry. Respiratory: Respiratory effort is even, unlabored, Respiratory pattern is regular, symmetrical. GI: No signs and/or symptoms were reported involving the gastrointestinal system. : No signs and/or symptoms were reported regarding the genitourinary system. Derm: Skin is dry, Skin is pale, Skin temperature is warm. Musculoskeletal: Reports generalized weakness. Historical: - Allergies: 10:15 No Known Allergies; hb - Home Meds: 10:14 irbesartan-hydrochlorothiazide 300-12.5 mg Oral tab [Active]; pantoprazole Oral hb [Active]; - PMHx: 10:14 Gastroesophageal reflux disease; Hypertensive disorder; pancreatic cancer; hb - PSHx: 10:14 Cholecystectomy; hb - Immunization history:: Adult Immunizations up to date. - Social history:: Smoking status: Patient/guardian denies using tobacco. Screenin:16 [facility] ED Fall Risk Assessment (Adult) Score/Fall Risk Level 3 or more points = High hb Risk Oriented to surroundings, Maintained a safe environment, Educated pt \T\ family on fall prevention, incl call for assistance when getting out of bed, Assessed \T\ reinforced patient's understanding of fall precautions, Hourly rounding (assess needs \T\ fall precautionary measures) done, Used ambulatory aids as needed (educated on \T\ assisted with). Abuse screen: Denies threats or abuse. Denies injuries from another. Nutritional screening: No deficits noted. Tuberculosis screening: No symptoms or risk factors identified. Assessment: 10:16 General: See triage assessment.. hb 11:08 Reassessment: Patient appears in no apparent distress at this time. No changes from hb previously documented assessment. 11:45 Reassessment: Patient appears in no apparent distress at this time. No changes from hb previously documented assessment. 12:15 Reassessment: First unit PRBCs started, see paper chart for transfusion flowsheet with hb obs/vitals. 13:00 General: Report called to Jasper VALLES at [facility], first unit PRBCs continue. Pt and hb updated on plan of care. remains at bedside. . 13:45 Reassessment: First unit PRBCs completed, second unit started and hand off to EMS hb complete. Vital Signs: 10:11 BP 69 / 54; Pulse 96; Resp 18; Temp 98.7(TE); Pulse Ox 100% on R/A; Weight 58.97 kg; hb Height 5 ft. 7 in. ; Pain 2/10; 10:30 BP 72 / 56; Pulse 95; Resp 15; Pulse Ox 97% on R/A; hb 11:00 BP 73 / 56; Pulse 94; Resp 15; Pulse Ox 97% on R/A; hb 11:30 BP 75 / 60; Pulse 94; Resp 15; Pulse Ox 96% on R/A; hb 11:45 BP 75 / 59; Pulse 98; Resp 15; Pulse Ox 96% on R/A; hb 12:00 BP 90 / 73; Pulse 95; Resp 17; Pulse Ox 97% on R/A; hb 12:09 BP 90 / 73; snw 12:32 BP 82 / 59; Pulse 94; Resp 16; Pulse Ox 96% on R/A; ph 13:00 BP 80 / 63; Pulse 89; Resp 14; Pulse Ox 98% on R/A; hb 13:30 BP 89 / 71; Pulse 89; Resp 15; Pulse Ox 99% on R/A; hb 13:45 BP 88 / 66; Pulse 88; Resp 15; Pulse Ox 100% on R/A; hb 10:11 Body Mass Index 20.36 (58.97 kg, 170.18 cm) hb 10:11 Pain Scale: Adult hb Latisha Coma Score: 12:09 Eye Response: spontaneous(4). Motor Response: obeys commands(6). Verbal Response: snw oriented(5). Total: 15. ED Course: 10:09 Patient arrived in ED. ph 10:10 Marge Sumner FNP-C is PHCP. snw 10:10 Amado San MD is Attending Physician. snw 10:12 Inserted saline lock: 20 gauge in right forearm, using aseptic technique. Blood ls5 collected. 10:12 Maintain EMS IV. Dressing intact. Good blood return noted. Site clean \T\ dry. Gauge \T\ hb site: 18G LFA. 10:12 Client placed on continuous cardiac and pulse oximetry monitoring. NIBP monitoring hb applied. 10:14 Triage completed. hb 10:14 Arm band placed on. hb 10:16 Patient has correct armband on for positive identification. Provided Education on: hb tests, result times. 10:19 Chloé Laboy, RN is Primary Nurse. hb 10:25 Chest Single View XRAY In Process Unspecified. EDMS 10:54 Bauer cath inserted, using sterile technique, [address], balloon inflated, to hb gravity drainage, urine specimen collected. returned addi urine. Patient tolerated well. 11:12 Notified Nurse Practitioner and/or Physician Mica Miner Blasting of a critical lab result(s), ll1 lactate 3.2. 12:56 1218 called [facility] to transfer pt. 1220 Dr. Sigrid Geller accepted pt to [facility] ER report number [phone] admin approval Cj Ferraro. 13:01 called [facility] for transfer to [facility], talked to Eric. lobo 13:55 No provider procedures requiring assistance completed. Patient transferred, IV remains hb in place. Administered Medications: 10:33 Drug: NS 0.9% IV 500 ml IV at bolus once Route: IV; Rate: bolus; Site: left forearm; hb 11:00 Follow up: Response: No adverse reaction; IV Status: Completed infusion; IV Intake: hb 500ml 11:08 Drug: NS 0.9% IV 500 ml IV at bolus once Route: IV; Rate: bolus; Site: left forearm; hb 11:25 Follow up: Response: No adverse reaction; IV Status: Completed infusion; IV Intake: hb 500ml 11:08 Drug: Cefepime IVPB 1 grams IVPB at 200 ml/hr once over 30 mins; (mix in NS 100 mL) hb Route: IVPB; Rate: 200 ml/hr; Infused Over: 30 mins; Site: left forearm; 11:40 Follow up: Response: No adverse reaction; IV Status: Completed infusion; IV Intake: hb 100ml Medication: 10:16 VIS not applicable for this client. hb Intake: 11:00 IV: 500ml; Total: 500ml. hb 11:25 IV: 500ml; Total: 1000ml. hb 11:40 IV: 100ml; Total: 1100ml. hb Outcome: 12:31 ER care complete, transfer ordered by MD. cerrato 13:55 Transferred by ground EMS to [facility], hb 13:55 Condition: stable 13:55 Instructed on the need for transfer, Demonstrated understanding of instructions, 13:55 Patient left the ED. hb Addendum: 08/16/2023 08:14 Addendum: Culture Results: Positive blood culture. faxed culture report to [facility]. b gayle pt in room G1975. Signatures: Dispatcher [employer] EDMS Yaa Ernst Shelly, SHIP FITTER-C SHIP FITTER-Damaris Taylor Patricia, RN RN Chloé Laboy RN RN hb Lewis, Lynsay, RN RN ll1 Rogelio Olivares ls5 Corrections: (The following items were deleted from the chart) 08/13 10:15 10:11 Chief complaint: EMS states: Generalized weakness that is worse today, has hb pancreatic cancer, last chemo was 2 weeks ago. AOx4, BP 70/40, HR 110s, SpO2 100% on RA, T 99. NS 1L to 18g LFA. hb 10:15 10:11 Chief complaint: EMS states: Generalized weakness that is worse today, has hb pancreatic cancer, last chemo was 2 weeks ago. AOx4, BP 70/40, HR 110s, SpO2 100% on RA, T 99, BGL 163. NS 1L to 18g LFA. hb
--- NOTE | 2023-08-13 12:31 | EDPHYS ---
Physician Documentation [facility] Name: Mark Graham Age: 53 yrs Sex: Male : 1970 Arrival Date: 08/13/2023 Time: 10:05 Bed 4 Private MD: ED Physician Amado San HPI: 08/13 10:23 This 53 yrs old Male presents to ER via EMS with complaints of General snw Weakness. 10:23 Onset: The symptoms/episode began/occurred acutely. Associated signs and symptoms: snw Pertinent positives: weakness. The patient has been recently seen by a physician: dx with UTI, influenza.. Historical: - Allergies: 10:15 No Known Allergies; hb - Home Meds: 10:14 irbesartan-hydrochlorothiazide 300-12.5 mg Oral tab [Active]; pantoprazole Oral hb [Active]; - PMHx: 10:14 Gastroesophageal reflux disease; Hypertensive disorder; pancreatic cancer; hb - PSHx: 10:14 Cholecystectomy; hb - Immunization history:: Adult Immunizations up to date. - Social history:: Smoking status: Patient/guardian denies using tobacco. ROS: 10:22 Eyes: Negative for injury, pain, redness, and discharge, ENT: Negative for injury, snw pain, and discharge, Neck: Negative for injury, pain, and swelling, Cardiovascular: Negative for chest pain, palpitations, and edema, Respiratory: Negative for shortness of breath, cough, wheezing, and pleuritic chest pain, 10:22 Back: Negative for injury and pain, : Negative for injury, bleeding, discharge, and swelling, MS/Extremity: Negative for injury and deformity, Skin: Negative for injury, rash, and discoloration, Psych: Negative for depression, anxiety, suicide ideation, homicidal ideation, and hallucinations, 10:22 Constitutional: Positive for fatigue, malaise, weakness, 10:22 Abdomen/GI: Positive for drainage from biliary drain bright in color, 10:22 Neuro: Positive for weakness, Exam: 10:19 Head/Face: Normocephalic, atraumatic. snw 10:19 Back: No spinal tenderness. No costovertebral tenderness. Full range of motion. 10:19 ENT: Nares patent. No nasal discharge, no septal abnormalities noted. Tympanic membranes are normal and external auditory canals are clear. Oropharynx with no redness, swelling, or masses, exudates, or evidence of obstruction, uvula midline. Mucous membranes moist. Neck: Trachea midline, no thyromegaly or masses palpated, and no cervical lymphadenopathy. Supple, full range of motion without nuchal rigidity, or vertebral point tenderness. No Meningismus. Chest/axilla: Normal chest wall appearance and motion. Nontender with no deformity. No lesions are appreciated. Cardiovascular: Regular rate and rhythm with a normal S1 and S2. No gallops, murmurs, or rubs. Normal PMI, no JVD. No pulse deficits. Pedal edema Respiratory: Lungs have equal breath sounds bilaterally, clear to auscultation and percussion. No rales, rhonchi or wheezes noted. No increased work of breathing, no retractions or nasal flaring. 10:19 Constitutional: The patient appears frail, obviously ill, pale, 10:19 Eyes: opens to touch. 10:19 Abdomen/GI: Inspection: distension, that is moderate, biliary drain , Palpation: abdomen is soft and non-tender, 10:19 Back: Exam negative for 10:19 Skin: Appearance: Color: pale, 10:19 Neuro: sedate, generalized weakness, 12:09 Neuro: Orientation: is normal, Mentation: is normal, Gait: not tested. opens his eyes, snw more responsive, smiles, Vital Signs: 10:11 BP 69 / 54; Pulse 96; Resp 18; Temp 98.7(TE); Pulse Ox 100% on R/A; Weight 58.97 kg; hb Height 5 ft. 7 in. ; Pain 2/10; 10:30 BP 72 / 56; Pulse 95; Resp 15; Pulse Ox 97% on R/A; hb 11:00 BP 73 / 56; Pulse 94; Resp 15; Pulse Ox 97% on R/A; hb 11:30 BP 75 / 60; Pulse 94; Resp 15; Pulse Ox 96% on R/A; hb 11:45 BP 75 / 59; Pulse 98; Resp 15; Pulse Ox 96% on R/A; hb 12:00 BP 90 / 73; Pulse 95; Resp 17; Pulse Ox 97% on R/A; hb 12:09 BP 90 / 73; snw 12:32 BP 82 / 59; Pulse 94; Resp 16; Pulse Ox 96% on R/A; ph 13:00 BP 80 / 63; Pulse 89; Resp 14; Pulse Ox 98% on R/A; hb 13:30 BP 89 / 71; Pulse 89; Resp 15; Pulse Ox 99% on R/A; hb 13:45 BP 88 / 66; Pulse 88; Resp 15; Pulse Ox 100% on R/A; hb 10:11 Body Mass Index 20.36 (58.97 kg, 170.18 cm) hb 10:11 Pain Scale: Adult hb Latisha Coma Score: 12:09 Eye Response: spontaneous(4). Motor Response: obeys commands(6). Verbal Response: snw oriented(5). Total: 15. MDM: 10:10 Patient medically screened. snw 10:23 Differential diagnosis: viral Infection, bacterial infection, end of life. Data snw reviewed: vital signs, nurses notes. ED course: Pt being followed at [facility], has been having intermittent chemo for pancreatic cancer. Pt was quite anemic lately and was supposed to get blood at infusion center but has not. Code status discussed with Spouse, she states "in this situation, full code resuscitation". 12:10 I considered the following discharge prescriptions or medication management in the [facility] emergency department Medications were administered in the Emergency Department. See MAR. Historians other than the Patient: EMS: [facility]. Spouse/Significant Other: . Counseling: I had a detailed discussion with the patient and/or guardian regarding the historical points, exam findings, and any diagnostic results supporting the discharge/admit diagnosis, lab results, the need to transfer to another facility, [facility] does not immediately have the required specialist, to [facility]. Response to treatment: the patient's symptoms have mildly improved after treatment. 12:26 Management of patient was discussed with the following: Dr. Geller at [facility] accepts pt in transfer. 08/13 10:18 Order name: Blood Culture Adult (2) [facility] 08/13 10:18 Order name: CBC with Diff; Complete Time: 12:06 [facility] 08/13 10:18 Order name: CMP; Complete Time: 11:22 [facility] 08/13 10:18 Order name: Lactate w/ 2H reflex if indic.; Complete Time: 11:22 [facility] 08/13 10:18 Order name: Protime (+inr); Complete Time: 11:22 snw 08/13 10:18 Order name: Ptt, Activated; Complete Time: 11:22 snw 08/13 10:18 Order name: Urinalysis w/ reflexes; Complete Time: 11:22 snw 08/13 10:18 Order name: TS snw 08/13 10:18 Order name: TSH; Complete Time: 11:22 snw 08/13 10:28 Order name: Bb Add On snw 08/13 11:03 Order name: Packed RBC Leukored EDMS 08/13 11:40 Order name: ABO/RH no charge; Complete Time: 11:44 EDMS 08/13 12:02 Order name: Manual Differential; Complete Time: 12:06 EDMS 08/13 10:18 Order name: Chest Single View XRAY; Complete Time: 10:49 snw 08/13 10:18 Order name: EKG; Complete Time: 10:18 snw 08/13 10:18 Order name: Accucheck; Complete Time: 10:34 snw 08/13 10:18 Order name: Cardiac monitoring; Complete Time: 10:34 snw 08/13 10:18 Order name: Cath; Complete Time: 10:54 snw 08/13 10:18 Order name: EKG - Nurse/Tech; Complete Time: 10:34 snw 08/13 10:18 Order name: IV Saline Lock - Large Bore; Complete Time: 10:34 snw 08/13 10:18 Order name: Labs collected and sent; Complete Time: 10:34 snw 08/13 10:18 Order name: O2 Per Protocol; Complete Time: 10:34 snw 08/13 10:18 Order name: O2 Sat Monitoring; Complete Time: 10:34 snw 08/13 10:18 Order name: Vital Signs; Complete Time: 10:34 snw 08/13 10:48 Order name: Misc. Order: T\\T\\S; Complete Time: 11:09 sp 08/13 11:05 Order name: VS Recheck; Complete Time: 11:08 snw EC:31 Rate is 96 beats/min. Rhythm is regular. QRS [place] is Normal. MN interval is normal. QRS snw interval is normal. QT interval is normal. No Q waves. Clinical impression: Normal ECG. Administered Medications: 10:33 Drug: NS 0.9% IV 500 ml IV at bolus once Route: IV; Rate: bolus; Site: left forearm; hb 11:00 Follow up: Response: No adverse reaction; IV Status: Completed infusion; IV Intake: hb 500ml 11:08 Drug: NS 0.9% IV 500 ml IV at bolus once Route: IV; Rate: bolus; Site: left forearm; hb 11:25 Follow up: Response: No adverse reaction; IV Status: Completed infusion; IV Intake: hb 500ml 11:08 Drug: Cefepime IVPB 1 grams IVPB at 200 ml/hr once over 30 mins; (mix in NS 100 mL) hb Route: IVPB; Rate: 200 ml/hr; Infused Over: 30 mins; Site: left forearm; 11:40 Follow up: Response: No adverse reaction; IV Status: Completed infusion; IV Intake: hb 100ml Disposition Summary: 08/13/23 12:31 Transfer Ordered Notes: Transfer Location: Other Acute Care Facility snw Reason: Specialty snw Condition: Fair snw Problem: an acute exacerbation snw Symptoms: have improved snw Accepting Physician: Dr. Geller(08/13/23 13:55) hb Diagnosis - Other specified sepsis - Enterococcus faecalis and Non-beta hemolytic strep snw - Anemia in neoplastic disease snw - Other specified diseases of biliary tract - stent snw - Pancreatic cancer snw Forms: - Medication Reconciliation Form snw - SBAR form snw Critical care time excluding procedures: 08/14 07:36 Critical care time: Bedside Care: 10 minutes, Consultation: 15 minutes, Family snw Intervention: 5 minutes. Total time: 30 minutes Signatures: Dispatcher [employer] Marge Medrano FNP-C CHIEF SUPPLY CHAIN OFFICER-Damaris Taylor Heather, RN RN hb Corrections: (The following items were deleted from the chart) 08/13 13:55 12:31 Dr. Geller snw hb
[2023-08-13 14:18] VITALS: TEMP 98.7
[2023-08-13 14:30] VITALS: BP 88/66; O2SAT 100
--- NOTE | 2023-08-17 15:33 | EKG ---
Test Date: 2023-08-13 Test Time: 10:31:37 Triple Drum Operator: HB MEASUREMENT RESULTS: Intervals: Rate: 96 NE: 162 QRSD: 100 QT: 352 QTc: 444 [place]: P: 40 NE: 162 QRS: 20 T: 23 INTERPRETIVE STATEMENTS: Normal sinus rhythm Normal ECG Compared to ECG 08/01/2023 17:39:21 No significant changes Electronically Signed On 08-17-23 15:17:52 HOME APPLIANCE TECHNICIAN by [place]
== END 2023-08-13 13:55 ==
LOC: ER 10:05 → EEVIPCON 10:05 → ER 13:55
PROC: 30233N1 Transfusion of Nonautologous Red Blood Cells into Peripheral Vein, Percutaneous Approach (ICD-10-PCS; principal; 2023-08-13)
DX: A41.89 Other specified sepsis (principal); C25.9 Malignant neoplasm of pancreas, unspecified; D63.0 Anemia in neoplastic disease; K83.8 Other specified diseases of biliary tract; I10 Essential (primary) hypertension
CPT/HCPCS: 96365; 93005; 87040 ×2; 85025; 81001; 36415; 86900; 86850; 87205 ×4; 85610; 86901; 83605; 85730; 86920 ×2; 84443; 87077 ×2; 87186 ×2; 80053; 71045; 51702; 99285; 36430; J1720; P9016 ×2; J7050; J7040 ×2; J7030; J0692